=== PATIENT | female | born 1940 | race Caucasian/White ===

== ENCOUNTER 2017-04-23 23:00 | Inpatient (IN) | payer OTHER ==
[~2017-04-23] VITALS: Ht 152.4 cm; Wt 105.7 kg
[~2017-04-23 23:00] MED LIST: AZOR 5-40 MG T1 EACH PO; BYSTOLIC5 M1 PO; CHILDREN'S ASPI81 M1 PO; CRESTOR40 M2 PO; FERROUS SULFAT325 M3 PO; FISH OIL 1,2001 EAC2 PO; FUROSEMIDE40 M1 PO; FUROSEMIDE40 MG PO; FUROSEMIDE80 M1 PO; HYDRALAZINE HC100 M1 PO; HYDRALAZINE HCL50 MG PO; ISOSORBIDE MONO60 M1 PO; K-DUR 20MEQ TA20 MEQ PO; KEFLEX250 M1 PO; MULTIPLE VITAM1 EAC2 PO; POTASSIUM CHLO10 ME4 PO; SPIRONOLACTONE25 M1 PO; VERAPAMIL ER240 MG PO; VITAMIN D31000 UNI2 PO; VITAMIN E200 UNI4 PO
--- NOTE | 2017-04-23 23:03 | NUR ---
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 PT ALSO REPORTS LOWER BACK 10/10 xWEEK. PT DENIES HEAD STRIKE. PT CURRENTLY ON ASPIRIN 81MG. VSS.
--- NOTE | 2017-04-23 23:26 | NUR ---
DR REID AT BEDSIDE FOR EVAL.
--- NOTE | 2017-04-23 23:52 | NUR ---
SST, LAV, BLUE AND ACEVEDO TOP TUBES SENT TO LAB.
[2017-04-23 23:55] LABS: ABSOLUTE BASOPHIL COUNT 0 /CUMM (0.0-0.2); ABSOLUTE EOSINOPHIL COUNT 0.3 /CUMM (0.0-0.7); ABSOLUTE LYMPH COUNT 1.6 /CUMM (1.2-3.4); ABSOLUTE MONOCYTE COUNT 0.8 /CUMM (0.10-0.60); BASOPHIL % 0.2 % (0.0-2.0); GRANULOCYTE % 73.8 % (42.2-75.2); HEMATOCRIT 22.8 % (37-47); MEAN CORPUSCULAR HGB 28.2 PG (27.0-31.0); MEAN CORPUSCULAR HGB CONC 32.5 G/DL (33.0-37.0); MEAN CORPUSCULAR VOLUME 86.7 FL (81.0-99.0); MEAN PLATELET VOLUME 8.1 FL (7.4-10.4); PLATELET COUNT 311 /CUMM (130-400); RBC DISTRIBUTION WIDTH 15.1 % (11.5-14.5); RED BLOOD CELL CT 2.63 /CUMM (4.20-5.40); WHITE BLOOD CELL COUNT 10.9 /CUMM (4.8-10.8)
--- NOTE | 2017-04-24 | NUR ---
CRITICAL TEST RESULTS [id number] GREGOR ALAS 76 F TESTS AND RESULTS: HGB 7.4 HCT 22.8 Results received and read back by: DAYDAY CHANCE Results received date and time: 04/24/17 0001 The following provider was notified of the results, and read the results back: DR REID Notified date and time: 04/24/17 at 0001
--- NOTE | 2017-04-24 00:08 | NUR ---
PT MEDICATED WITH MORPHINE, VALIUM AND OFIRMEV PER EMAR FOR 10/10 R HIP AND BACK PAIN. WILL CONTINUE TO MONITOR. PT TAKEN FOR CAT SCAN AT THIS TIME.
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
--- NOTE | 2017-04-24 00:25 | NUR ---
PT RETURNED FROM CAT SCAN AT THIS TIME. LIGHTS DIMMED FOR COMFORT. WILL CONTINUE TO MONITOR.
--- NOTE | 2017-04-24 01:03 | NUR ---
PT MEDICATED WITH KLOR AND KCL BOLUS PER EMAR. DR REID AT BEDSIDE FOR SIGNING OF CONSENT. HEART MONITOR REMAINS IN PLACE.
--- NOTE | 2017-04-24 01:10 | CT SCAN REPORT ---
EXAMINATION: CT LUMBAR SPINE WITHOUT CONTRAST CLINICAL INFORMATION: History of fracture with worsening pain after fall COMPARISON: CT abdomen/pelvis 11/14/2013 TECHNIQUE: Helical non-contrast CT images were obtained through the lumbar spine and 1.25 and 2.5 mm axial reconstructions were reviewed along with sagittal and coronal MPRs. DLP: 1078.34 mGy-cm FINDINGS: There is grade 1 anterolisthesis of L4 on L5. There is slight loss of height in the posterior aspect of the T11 vertebral body which appears unchanged from prior. There is mild loss of height in the central to anterior aspect of the superior endplate of L1 which appears similar to prior, suggestive of a Schmorl's node. L2-L5 vertebral body heights are maintained. There is disc space narrowing at T12-L1, most prominent posteriorly. There is marked facet arthropathy of the mid to lower lumbar spine. No acute fracture is seen. There is degenerative change along the bilateral sacroiliac joints. There is aneurysmal dilation of the abdominal aorta to approximately 4.0 cm. There is atherosclerotic calcification along the aorta. IMPRESSION: Degenerative changes as described above, with marked facet arthropathy of the mid to lower lumbar spine. Mild loss of height in the superior endplate of L1 appears similar to prior. No new acute findings identified.
--- NOTE | 2017-04-24 01:37 | NUR ---
PINK TOP TUBE SENT TO LAB.
--- NOTE | 2017-04-24 02:58 | NUR ---
UNIT #1 OF LEUKOCYTE POOR INITIATED. PT TOLERATING WELL. WILL CONTINUE TO MONITOR.
--- NOTE | 2017-04-24 03:13 | NUR ---
LEUKOCYTE POOR CONTINUES TO INFUSE. PT TOLERATING WELL. WILL CONTINUE TO MONITOR.
--- NOTE | 2017-04-24 04:10 | NUR ---
PT CONTINUES TO REST ON STRETCHER. LEUKOCYTE POOR CONTINUES TO INFUSE. NO DISTRESS NOTED. HEART MONITOR REMAINS IN PLACE. WILL CONTINUE TO MONITOR.
--- NOTE | 2017-04-24 05:05 | NUR ---
PT NOTED TO BE SLEEPING ON STRETCHER. HEART MONITOR REMAINS IN PLACE. WILL CONTINUE TO MONITOR.
--- NOTE | 2017-04-24 05:47 | NUR ---
LEUKOCYTE POOR INFUSION COMPLETE. NO DISTRESS NOTED. DR REID AT BEDSIDE TO EXPLAIN POC.
--- NOTE | 2017-04-24 06:58 | NUR ---
PT RESTING QUIETLY ON STRETCHER. HEART MONITOR REMAINS IN PLACE. NO DISTRESS NOTED.
--- NOTE | 2017-04-24 07:16 | NUR ---
REPORT GIVEN TO FLORA SONG.
[2017-04-24] MEDS ORDERED: DOXAZOSIN MESYLA2 M1 PO (08:09)
--- NOTE | 2017-04-24 09:18 | NUR ---
PT. GIVEN TOAST, REQUESTING SOMETHING FOR PAIN
--- NOTE | 2017-04-24 09:52 | NUR ---
PT HAS BED ASSIGNMENT 237-1. RN NOTIFIED.
--- NOTE | 2017-04-24 10:14 | NUR ---
REPORT GIVEN TO FLORA SAMPSON
--- NOTE | 2017-04-24 10:28 | NUR ---
PT MEDICATED FOR 10/10 PAIN PER EMAR WIHT MORPHINE
--- NOTE | 2017-04-24 10:31 | History & Physical ---
CARMINA SILVA 04/24/17 0944: General Information and HPI MD Statement: I have seen and personally examined GREGOR ALAS and documented this H&P. The patient is a 76 year old F who presented with a patient stated chief complaint of [back pain]. Source of Information: patient Exam Limitations: no limitations History of Present Illness: Patient is a 76 y/o F with PMHx of uncontrolled HTN, HLD, T2DM, chronic anemia, CKD stage III, chronic venous insufficiency and 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 Patient states that she fractured her back about 26 years ago. Since then she has had chronic back pain and has been on pain medications. She often has had elevations of her pain secondary to wrong posture or sleep position. Yesterday she was unable to get off the toilet seat in the bathroom and lost her balance resulting in a fall on the floor. She suffered no injuries, no loss of consciousness, no dizziness, no chest pain, no palpitations, no seizure-like activity. Denies any nausea, vomiting, abdominal pain, urinary or bowel symptoms. After the fall she wasn't able to get up and therefore helself called 911 for help. At this time she reports intense back pain and inability to walk. She reports tenderness on the right lumbar region however denies any neurological deficits. However she reports constant pain and unable to change positions due to the discomfort. She lives by herself and normally does not use of walker or cane to ambulate.Her 2 sons live in [place] and daughter lives in [place]. Patient also has history of anemia and underwent a colonoscopy and endoscopy by Dr. Pérez on 01/29/2017. Multiple polyps were removed, which were negative for malignancy. Patient has been advised surveillance colonoscopy in 3 years. She was advised to stop NSAIDs and continue iron sulfate which the patient is currently taking. She denies evidence of any blood in stool or urine. No GI complaints at this time. Patient has history of heart failure with preserved ejection fraction. Her last echocardiogram was in 10/23/2016 and showed stage I diastolic dysfunction with EF of 65% with ventricular thickness moderately increased. 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 and 40 mg in p.m. In the ED vitals temperature 98.6, pulse 74, respiration 18, blood pressure 175/ 90, pulse ox 94% on room air. Labs showed a white count of 10.9, H&H of 7.4 /22.8(baseline hemoglobin around 9 ), MCV normal, sodium 143, potassium 3, BUN 67, creatinine 3.1(baseline around 1.9), magnesium 2.[address] showed degenerative changes, marked facet arthropathy of the mid to lower lumbar spine. Mild loss of height in the superior endplate of L1 which is old). Patient received IV morphine, IV Tylenol, 1 unit of PRBC, and potassium in the ED Allergies/Medications Allergies: Coded Allergies: NO KNOWN ALLERGIES (UNKNOWN 04/24/17) Home Med list Amlodipine Bes/Olmesartan Med (Reina 5-40 MG Tablet) 5 MG-40 MG TABLET 1 TAB PO DAILY HEART (Reported) Aspirin (Children's Aspirin) 81 MG TAB.CHEW 1 TAB PO DAILY HEART HEALTH ( Reported) Cholecalciferol (Vitamin D3) 1,000 UNIT TABLET 1 TAB PO DAILY VITAMIN SUPPORT (Reported) Doxazosin Mesylate 2 MG TABLET 0.5 TAB PO DAILY HEART (Reported) Ferrous Sulfate 325 MG (65 MG IRON) TABLET 1 TAB PO DAILY SUPPLEMENT ( Reported) Furosemide 80 MG TABLET 1 TAB PO QAM FLUID RETENTION Furosemide 40 MG TABLET 1 TAB PO QPM HIGH BLOOD PRESSURE Hydralazine HCl 100 MG TABLET 1 TAB PO TID HIGH BLOOD PRESSURE Isosorbide Mononitrate (Isosorbide Mononitrate ER) 60 MG TAB.ER.24H 1 TAB PO DAILY HIGH BLOOD PRESSURE Multivitamin (Multiple Vitamins) 1 EACH TABLET 1 TAB PO DAILY VITAMIN SUPPORT (Reported) Nebivolol HCl (Bystolic) 5 MG TABLET 1 TAB PO DAILY HEART (Reported) [place]-3S/Dha/Epa/Fish Oil (Fish Oil 1,200 MG Softgel) 360-1,200MG CAPSULE 1 CAP PO DAILY SUPPLEMENT (Reported) Potassium Chloride 10 MEQ TABLET.ER 1 TAB PO DAILY ELECTROLYTES Rosuvastatin Calcium (Crestor) 40 MG TABLET 1 TAB PO DAILY CHOLESTEROL ( Reported) Spironolactone 25 MG TABLET 0.5 TAB PO DAILY HIGH BLOOD PRESSURE Vitamin E 200 UNIT CAPSULE 1 CAP PO DAILY SUPPLEMENT (Reported) Past History Travel History Traveled to [place] past 21 day No Medical History Neurological: NONE EENT: NONE Cardiovascular: chronic venous insuff, diastolic CHF, hypertension, hyperlipidemia Respiratory: NONE Gastrointestinal: C.DIFF Hepatic: NONE Renal: chronic kidney disease Musculoskeletal: NONE Psychiatric: NONE Endocrine: NONE Blood Disorders: anemia Cancer(s): NONE History of MRSA: No History of VRE: No History of CDIFF: No Surgical History Surgical History: TONSILS Past Family/Social History Psychosocial History Services at Home: None Review of Systems Review of Systems Constitutional: Reports: malaise, weakness. EENTM: Reports: no symptoms. Cardiovascular: Reports: no symptoms. Respiratory: Reports: no symptoms. GI: Reports: no symptoms. Genitourinary: Reports: no symptoms. Musculoskeletal: Reports: back pain, muscle pain. Skin: Reports: no symptoms. Neurological/Psychological: Reports: no symptoms. Hematologic/Endocrine: Reports: no symptoms. Exam & Diagnostic Data Last 24 Hrs of Vital Signs/I&O Vital Signs Date Time Temp Pulse Resp B/P B/P Pulse O2 O2 Flow FiO2 Mean Ox Delivery Rate 04/24 0709 97.2 65 18 172/76 94 Room Air 04/24 0545 97.0 63 18 170/82 94 Room Air 04/24 0313 97.3 54 18 170/72 95 Room Air 04/24 0240 97.5 55 18 172/78 95 Room Air 04/24 0100 66 18 176/88 95 Room Air 04/23 2315 98.6 74 18 175/90 94 Room Air Intake & Output 04/24 1600 16 0800 04/24 0000 Intake Total 0 Output Total Balance 0 Intake, Oral 0 Patient 106.141 kg Weight Weight Reported by Patient Measurement Method Physical Exam General Appearance Alert, Oriented X3, Cooperative, Moderate Distress Skin No Rashes, No Breakdown Skin Temp/Moisture Exam: Warm/Dry Sepsis Skin Exam (color): Normal for Ethnicity HEENT Atraumatic, PERRLA, EOMI Neck No JVD Lymphatic Cervical nl Cardiovascular Regular Rate, Normal S1, Normal S2, No Murmurs Lungs Clear to Auscultation, Normal Air Movement Abdomen Normal Bowel Sounds, Soft, No Tenderness Neurological Normal Speech, Normal Tone, Sensation Intact, RIGHT PARASPINAL TENDERNESS, ROM of the back Extremities 2+ PITTING EDEMA TO THE KNEES BILATERALLY. STASIS DERMATITIS Vascular Pulses Symmetrical Assessment/Plan Assessment: Patient is a 76 y/o F with PMHx of uncontrolled HTN, HLD, T2DM, chronic anemia, CKD stage III, chronic venous insufficiency and HFwPEF(65 %, Stage 1 diastolic dysfunction) was brought to the ED by EMS for a fall and difficulty with ambulation. In the ED vitals temperature 98.6, pulse 74, respiration 18, blood pressure 175/ 90, pulse ox 94% on room air. Labs showed a white count of 10.9, H&H of 7.4 /22.8(baseline hemoglobin around 9 ), MCV normal, sodium 143, potassium 3, BUN 67, creatinine 3.1(baseline around 1.9), magnesium 2.[address] showed degenerative changes, marked facet arthropathy of the mid to lower lumbar spine. Mild loss of height in the superior endplate of L1 which is old). Patient has history of anemia and underwent a colonoscopy and endoscopy by Dr. Rodarte on 01/29/2017. Multiple polyps were removed, negative for malignancy. Patient has been advised surveillance colonoscopy in 3 years. Her last echocardiogram was in 10/23/2016 and showed stage I diastolic dysfunction with EF of 65% with ventricular thickness moderately increased. Patient received IV morphine, IV Tylenol, 1 unit of PRBC, and potassium in the ED Assessment * Unwitnessed Mechanical fall * Chronic back pain * Normocytic Anemia status post 1 unit of blood transfusion * History of heart failure with preserved ejection fraction * Hypertension * Bilateral lower extremity edema * PATO on CKD stage III * Hyperlipidemia * Type 2 diabetes mellitus Plan * Patient is being placed in observation * Vitals per protocol * Pain control with IV morphine and IV Tylenol as needed * Consider MRI of the back to r/o fracture, disc d/s * Stool guaiac * GI consult for anemia, holding ASA * Continue home medications for hypertension hydralazine, amlodipine and losartan, spironolactone and Bystolic. * Will get renal USG to r/o obstruction. * No fluids at this time, will continue duiretics. Stop diuretics if creatinine continues to rise. * Replete potassium * Recheck BeP and CBC at 1 PM * Continue home medication Lasix for chronic leg edema 80 mg in a.m. and 40 in p.m. * Consider nephro consult for PATO on CKD * Patient is ambulated with physical therapy. She needs further physical therapy and STR placement * Heart healthy diet * Full code * Moderate/severe pain pathway As Ranked By This Provider Problem List: 1. Fall at home Qualifiers Encounter type: initial encounter Qualified Codes: W19.XXXA - Unspecified fall, initial encounter; Y92.099 - Unspecified place in other non-institutional residence as the place of occurrence of the external cause 2. Leg swelling 3. Anemia Observation Initial Note - I have personally examined GREGOR ALAS on 04/24/17 at 1033. The disposition of GREGOR ALAS is uncertain at this time and before a determination can be made, she requires a period of observation for the following reasons : The patient has ambulated with assistance from PT. She is having significant pain and requiring IV Tylenol. She received IV fluids and blood in the ER Patient is being placed into inpatient observation for pain control, hydration and repeat creatinine and hemoglobin. Core Measures/Miscellaneous Acute Coronary Syndrome ACS Diagnosis: No Cerebrovascular Accident CVA/TIA Diagnosis: No Congestive Heart Failure CHF Diagnosis: No VTE (View Protocol) VTE Risk Factors: Age > 40, Obesity [facility] prophylaxis d/t: No contraindications No VTE Pharm Prophylaxis d/t: Active bleeding VTE Diagnosis: No VTE Type: NONE VTE Confirmed by (Test): NONE Sepsis (View Protocol) Severe Sepsis Present: No Septic Shock Septic Shock Present: No Miscellaneous Documentation Attending Case Discussed With: MAHAD CHEW MD Primary Care Physician: VIPUL COOK MD Patient sees these Specialists dr hernadez Level of Patient Care: General Medicine MAHAD CHEW MD 04/25/17 0753: Attending Review Statement Attending Statement Attending Statement: examined this patient, discuss w/resident/PA/PRINTER SLOTTER HELPER, agreed w/resident/PA/PRINTER SLOTTER HELPER, reviewed EMR data (avail), reviewed images, amended to note Attending Assessment/Plan: The patient is a 76 yo female with h/o HTN, HL, DM2, chronic anemia, h/o diastolic dysfunction (stage I on ECHO) who presented in the ED yesterday after mechanical fall at home and subsequent severe back pain (unable to ambulate). X- ray showed older lumbar fracture, however no new fracture. She has had some chronic back pain. She also has chronic anemia and hemoglobin was further reduced and transfusion of PRBC's was given in ED. Has CKD with increased Cr above baseline (3.1 vs 2.6). Has been taking her diuretics and has had diminished po intake. Denies any fever, chills, chest pain, abdominal pain, nausea/vomiting. Physical Exam: VS: T 98.6, P 74, R 18, BP 175/90, PO 95% RA HEENT: eyes- PERRLA, EOMI arley-dry mucosa Neck: no JVD/bruits Chest: clear Cor: RRR, nl S1, S2 w/o murm Abd: Bs+, soft, NT, - HSM Back: no focal tenderness or spasm Ext: no edema, pulses 1+ Neuro: alert & oriented x 3, non-focal exam Labs/Tests- as above Impression/Plan: #Intractable Back Pain and Gait Instability- after mechanical fall at home. No acute fracture noted on lumbar X-ray (h/o old L1 fx). Received IV narcotic in ED. Plan: Will bring in under observation status to general medical floor. Pain pathway. PT consult. Will need rehab placement. Will obtain MRI of lumbar spine to better assess for any acute fractures. #Acute on Chronic Renal Failure- followed by Nephrology (already seen by Selin Olsen). Patient appears clinically dry. Plan: Will hold Lasix and spironolactone today and re-assess in morning pending BEP and Nephro follow-up. No IV fluids per Nephrology. #Acute on Chronic Anemia- did have recent (03/25) colonoscopy and polypectomies. No history of blood per rectum. Suspect large component due to renal failure. Plan: Check stools for blood, GI consult (Dr. Souza) done. Follow-up H/H post transfusion. Consider epogen pending nephrology follow-up. Continue iron supplement. #HTN- BP stable at present. Plan: Continue Bystolic (or equivalent), Hydralazine, Amlodipine/Olmesartan (or equivalent). Restart Lasix/Spironolactone pending follow-up labs. #CAD- on Isosorbide/ASA. Plan: Continue Isosorbide/ASA. #Hyperlipidemia- on Crestor as OP. Plan: Continue Statin.
--- NOTE | 2017-04-24 11:00 | NUR ---
PT ARRIVED TO FLOOR VIA WC. ABLE TO STAND AND PIVOT TO BED WITH MINIMAL ASSISTANCE. PER PT, MOVING BETTER SINCE RECEIVING MORPHINE IN ER. RATES PAIN 8/10 WITH MOVEMENT BUT STATES IS SUBSIDES WITH REST. ASSISTED TO BED. SKIN INTACT. EDEMA NOTED TO BLE, L>R. VITALS OBTAINED. BP 212/100. PER PT, TAKES MANY BP MEDS AND HAS NOT RECEIVED ANY. CALL PLACED TO RESIDENT DR. SILVA. TO ORDER ALL HOME BP MEDICATIONS. PT MEDICATED WITH IV TYLENOL FOR PAIN 8/10. ORIENTED TO CALL SYSTEM. FALL PRECAUTIONS IN PLACE. WILL MONITOR.
[2017-04-24 11:15] VITALS: BP 212/100
--- NOTE | 2017-04-24 12:00 | NUR ---
BP RE-CHECKED PRIOR TO PO MED ADMINISTRATION. BP REMAINS ELEVATED AT 202/92. REPORTED AGAIN TO DR. MARKS. PO MEDS REVIEWED WITH PT, ORDERS CLARIFIED AND REPORTED TO MD. DUNN TO MAKE CHANGES IN SYSTEM. WILL MONITOR.
--- NOTE | 2017-04-24 12:49 | Cons- Nephrology ---
General Information and HPI Consulting Request Date of Consult: 04/24/17 Requested By: MAHAD CHEW MD Reason for Consult: Management of PATO/CKD History of Present Illness: The patient is a 76-year-old woman with known chronic kidney disease secondary to hypertension and diabetes mellitus without high-grade proteinuria. Her baseline serum creatinine has recently been in the mid 2's. She is now admitted because of a fall at home which she attributes to chronic back problems. She was not on the floor for more than 10 or 15 minutes and was observed overnight in the emergency department. Her serum creatinine was noted to be elevated above baseline at a level of 3.1 prompting this consultation request. There have just far been no repeat labs today. She denies any recent decrease in p.o. intake and does not take NSAIDs. There's been no recent exposure to other potential nephrotoxins (other than her diuretics), as far as I can ascertain. CT scan of the lumbar spine showed degenerative changes with no apparent acute process. Past medical history is positive for hypertension, type 2 diabetes mellitus, hyperlipidemia, CK D stage III as noted above, chronic anemia status post EGD/ colonoscopy in January with multiple benign polypectomies, chronic venous insufficiency, stage I diastolic dysfunction with an LVEF of 65%, pulmonary hypertension, MGUS (IgM). Medications: See below Allergies: No known drug allergies Family history: Neither parents, 2 brothers or 4 children have any history of kidney disease; there is a family history for hypertension. Social history: , lives alone, no history of alcohol abuse, cigarette smoking or drug abuse. Allergies/Medications Allergies: Coded Allergies: NO KNOWN ALLERGIES (UNKNOWN 04/24/17) Home Med List: Amlodipine Bes/Olmesartan Med (Reina 5-40 MG Tablet) 5 MG-40 MG TABLET 1 TAB PO DAILY HEART (Reported) Aspirin (Children's Aspirin) 81 MG TAB.CHEW 1 TAB PO DAILY HEART HEALTH ( Reported) Cholecalciferol (Vitamin D3) 1,000 UNIT TABLET 1 TAB PO DAILY VITAMIN SUPPORT (Reported) Doxazosin Mesylate 2 MG TABLET 0.5 TAB PO DAILY HEART (Reported) Ferrous Sulfate 325 MG (65 MG IRON) TABLET 1 TAB PO DAILY SUPPLEMENT ( Reported) Furosemide 80 MG TABLET 1 TAB PO QAM FLUID RETENTION Furosemide 40 MG TABLET 1 TAB PO QPM HIGH BLOOD PRESSURE Hydralazine HCl 100 MG TABLET 1 TAB PO TID HIGH BLOOD PRESSURE Isosorbide Mononitrate (Isosorbide Mononitrate ER) 60 MG TAB.ER.24H 1 TAB PO DAILY HIGH BLOOD PRESSURE Multivitamin (Multiple Vitamins) 1 EACH TABLET 1 TAB PO DAILY VITAMIN SUPPORT (Reported) Nebivolol HCl (Bystolic) 5 MG TABLET 1 TAB PO DAILY HEART (Reported) [place]-3S/Dha/Epa/Fish Oil (Fish Oil 1,200 MG Softgel) 360-1,200MG CAPSULE 1 CAP PO DAILY SUPPLEMENT (Reported) Potassium Chloride 10 MEQ TABLET.ER 1 TAB PO DAILY ELECTROLYTES Rosuvastatin Calcium (Crestor) 40 MG TABLET 1 TAB PO DAILY CHOLESTEROL ( Reported) Spironolactone 25 MG TABLET 0.5 TAB PO DAILY HIGH BLOOD PRESSURE Vitamin E 200 UNIT CAPSULE 1 CAP PO DAILY SUPPLEMENT (Reported) Review of Systems Review of Systems: Review of Systems Constitutional: Reports: malaise, weakness. EENTM: Reports: no symptoms. Cardiovascular: Reports: no symptoms. Respiratory: Reports: no symptoms. GI: Reports: no symptoms. Genitourinary: Reports: no symptoms with stable nocturia 2. Musculoskeletal: Reports: back pain, muscle pain. Skin: Reports: no symptoms. Neurological/Psychological: Reports: no symptoms. Hematologic/Endocrine: Reports: no symptoms. 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 Surgical History Surgical History: TONSILS Psychosocial History Services at Home: None Smoking Status: Never Smoked Exam & Diagnostic Data Vital Signs and I&O Vital Signs Date Time Temp Pulse Resp B/P B/P Pulse O2 O2 Flow FiO2 Mean Ox Delivery Rate 04/24 1220 04/24 1220 04/24 1220 04/24 1220 04/24 1115 97.6 74 16 212/100 94 Room Air 04/24 1025 98.0 62 14 171/76 95 04/24 0709 97.2 65 18 172/76 94 Room Air 04/24 0545 97.0 63 18 170/82 94 Room Air 04/24 0313 97.3 54 18 170/72 95 Room Air 04/24 0240 97.5 55 18 172/78 95 Room Air 04/24 0100 66 18 176/88 95 Room Air 04/23 2315 98.6 74 18 175/90 94 Room Air Intake & Output 04/24 0400 04/23 0400 04/22 0400 Intake Total 0 Output Total Balance 0 Intake, Oral 0 Patient 234 lb 234 lb Weight Weight Reported by Patient Measurement Method Physical Exam: General: Well-developed, obese white female in NAD Skin: No rash or jaundice HEENT: Conjunctivae pale, sclerae anicteric, mucous membranes moist Neck: Without masses or thyromegaly, no supraclavicular or cervical adenopathy Chest: Clear to P&A Heart: Regular rate and rhythm without S3 or rub Abdomen: Obese, soft and nontender without palpable masses or organomegaly Extremities: Trace to 1+ edema more pronounced on the left Neuro: No focal findings, no asterixis or myoclonus Results Pertinent Lab Results: Laboratory Tests 04/23 2347 Chemistry Sodium (137 - 145 mmol/L) 143 Potassium (3.5 - 5.1 mmol/L) 3.0 L Chloride (98 - 107 mmol/L) 102 Carbon Dioxide (22 - 30 mmol/L) 25 Anion Gap (5 - 16) 16 BUN (7 - 17 mg/dL) 67 H Creatinine (0.5 - 1.0 mg/dL) 3.1 H Estimated GFR (>60 ml/min) 15 L BUN/Creatinine Ratio (7 - 25 %) 21.6 Glucose (65 - 99 mg/dL) 98 Calcium (8.4 - 10.2 mg/dL) 8.9 Magnesium (1.6 - 2.3 mg/dL) 2.4 H Total Bilirubin (0.2 - 1.3 mg/dL) 0.4 AST (14 - 36 U/L) 17 ALT (9 - 52 U/L) 27 Alkaline Phosphatase (<127 U/L) 61 Total Protein (6.3 - 8.2 g/dL) 6.5 Albumin (3.5 - 5.0 g/dL) 3.6 Globulin (1.9 - 4.2 gm/dL) 2.9 Albumin/Globulin Ratio (1.1 - 2.2 %) 1.2 Hematology CBC w Diff NO MAN DIFF REQ WBC (4.8 - 10.8 /CUMM) 10.9 H RBC (4.20 - 5.40 /CUMM) 2.63 L Hgb (12.0 - 16.0 G/DL) 7.4 *L Hct (37 - 47 %) 22.8 L MCV (81.0 - 99.0 FL) 86.7 MCH (27.0 - 31.0 PG) 28.2 RDW (11.5 - 14.5 %) 15.1 H Plt Count (130 - 400 /CUMM) 311 MPV (7.4 - 10.4 FL) 8.1 Gran % (42.2 - 75.2 %) 73.8 Lymphocytes % (20.5 - 51.1 %) 15.2 L Monocytes % (1.7 - 9.3 %) 7.8 Eosinophils % (0 - 5 %) 3.0 Basophils % (0.0 - 2.0 %) 0.2 Absolute Granulocytes (1.4 - 6.5 /CUMM) 8.0 H Absolute Lymphocytes (1.2 - 3.4 /CUMM) 1.6 Absolute Monocytes (0.10 - 0.60 /CUMM) 0.8 H Absolute Eosinophils (0.0 - 0.7 /CUMM) 0.3 Absolute Basophils (0.0 - 0.2 /CUMM) 0 PUBS MCHC (33.0 - 37.0 G/DL) 32.5 L Assessment/Plan Assessment/Recommendations Assessment: 76-year-old woman with a background that includes chronic kidney disease stage III secondary to hypertension and diabetes mellitus without high-grade proteinuria, hyperlipidemia, chronic lower extremity edema possibly related to venous insufficiency, pulmonary hypertension, colonic polyps, anemia, chronic back pain and an MGUS. She now comes in following a fall at home with no acute findings on lumbar CT scan but with a creatinine that is elevated above her baseline. In addition she is significantly hypertensive, hypokalemic and anemic. I suspect there is an element of volume contraction likely secondary to her diuretic therapy. Obstruction needs to be considered and ruled out. Recommendations: 1. Renal ultrasound 2. Please recheck her chemistries today and supplement potassium as needed; would also check a serum phosphorus level 3. If creatinine is not coming down toward baseline, would hold her diuretics for 1-2 days and reassess; no IV fluids for the moment unless her creatinine is actually rising 4. Resume her outpatient antihypertensive regimen which may need to be intensified 5. Anemia evaluation to include a serum immunoelectrophoresis and serum free light chains Thank you. We will follow up.
[2017-04-24 14:00] VITALS: BP 134/64
--- NOTE | 2017-04-24 15:04 | Cons- Gastroenterology ---
General Information and HPI Consulting Request Date of Consult: 04/24/17 Requested By: MHAAD PHILIP MD Reason for Consult: I was notified approximately 11 a.m. today of a request by the hospitalist service for a GI consult to assess multifactorial anemia, in a patient admitted post fall, with acute on chronic renal insufficiency (no stool guaiac had been performed; I subsequently did a digital exam that showed OB-negative stool). The patient has had a relatively recent EGD/colonoscopy by myself (*see HPI). Source of Information: patient, old records Exam Limitations: no limitations History of Present Illness: 76 y/o female, poorly controlled HTN, HLD, AODM, gout, DJD, chronic anemia ( previously transfused in 2012), MGUS IgM, chronic venous insufficiency, CKD stage III with significant proteinuria, stage 1 diastolic dysfunction, history of Lyme disease with + Western blot 04/01/11, history of falls, history of colon adenoma, past history of heavy NSAID use (stopped Aleve in 01/2017- switched to Tylenol; on baby ASA 81 mg daily), past history of multiple bouts of C. difficIle (last 03/28/13), with remote fracture of lower back 1991 & chronic low back syptoms intermittently since, BIBA to ER. arriving 04/23/17 at 11:00 p.m., after a mechanical fall. The patient went to the bathroom at home late last evening and slipped off the toilet bowl. She was then sitting on the floor. She denied any head trauma, chest pain, palpitations, loss of consciousness, seizures, or LOC. She called 911 and was brought to the ER, as she subsequently had difficulty ambulating. Upon arrival, BP 175/90, P 74, RR 18, T 98.6, O2 sat RA 94%. Aside from her right paralumbar/lower lumbar back pain, she otherwise had no new complaints. The ER sheets stated right hip pain, but the patient denied this. Her anemia was not symptomatic. She had no signs or symptoms of uremia. She lives by herself and previously did not need a walker or cane to ambulate. She denied any urinary or fecal incontinence. She denied any abdominal trauma, nausea, vomiting, reflux, odynophagia, dysphagia, early satiety, hematemesis, melena, diarrhea, constipation, obstipation, tenesmus, change in stool caliber, or rectal bleeding. She denied any fevers, chills, jaundice, weight loss, change in appetite, symptoms of UTI, or symptoms or URI. There is no family history of GI malignancy, GI disease, or inherited liver disease. *She has received 1u PRBC to date, this admission, in the ER, along with IV MS, IV Tylenol, Valium, & K+. 07/22/2003: normal fasting serum carotene 53, tTG Ab- neg, DGP IgA Ab- neg, DGP IgG Ab- 54 (positive), with subsequent SB biopsies- negative for celiac sprue. 07/27/2003: Baseline upper endoscopy to D3 with biopsies & baseline colonoscopy to the cecum- Z line at 40 cm, random biopsies D2/D3- *normal villi; moderate left-sided diverticula, normal colonic mucosa to the cecum. 11/23/2003: SPEP- elevated [id number], IPEP- negative 04/07/2014: SPEP- c/w acute phase reactant, with alpha 2 globulin 09/29/2016: Fe 39, TIBC 267, Fe sat 14.6%, ferritin 7.9, B12 812, folate > 20. 04/23/2017: The patient was found to have acute on chronic renal insufficiency on admission, with BUN/Cr 67/3.1 (baseline Cr 1.9), GFR 15 (baseline GFR 20's), Na 143, K 3.0, HCO3 25, AG 16, Mg 2.4, Ca 8.9, albumin 3.6, globulin 2.9, TBil 0.4, alk phos 61, AST 17, ALT 27, WBC 10.9, H/H 7.4/22.8 (baseline Hgb 8-9 range ), MCV 86.7, RDW 15.1, PLT 311 04/24/2017: WBC 10.2, H/H 8.1/24.6, PLT 281 (*post 1u PRBC) 04/24/2017: BUN/Cr 59/3.0, GFR 15, Na 141, K 3.5, HCO3 26, AG 13 04/24/2017: U/A- hazy, yellow, 1.015, 6.0, 1-3 WBC, many bact, mod epith, 100+ prot; neg nitrite, neg esterase. *I recently performed repeat EGD/colonoscopy a couple of months ago. 01/29/17: *Combined follow-up upper endoscopy to the third portion of the duodenum with biopsies, plus follow-up colonoscopy to the terminal ileum, with biopsies/hot snare polypectomies (*done at different sites), and prophylactic clipping 1, for chronic iron deficiency anemia at that time, with OB positive stool then. She had been on Aleve then, which was subsequently stopped. Impression: 1. Repeat random small bowel biopsy 4 of normal-appearing second and third portions of the duodenum obtained: (Specimen A- rule out malabsorption and/or celiac sprue; iron deficiency with remote 07/22/03: AG Ab IgG+, normal carotene, tTG Ab IgA- negative & AG Ab IgA- negative, & 07/27/03: bxs D2/D3- normal villi). *Duodenal biopsies- unremarkable. 2. Lipomatous fold, second portion of duodenum, biopsied: (Specimen B). *Bxs c/ w lipoma. 3. Mild antral inflammation (scant dried heme washed essentially clear), biopsied: Specimen C). *Bxs- mild gastritis, H. pylori negative. 4. Extensive left-sided diverticula. 5. Multiple polyps seen and removed upon exiting the colon: (Specimen A- 1 cm sessile cecal polyp near the base of the appendix, positive by NBI, biopsied then completely removed via hot snare polypectomy, using 25 W/pure coag, retrieved via suction, and prophylactically clipped with a [employer] Reesolution 360 clip, which deployed in excellent location. *Benign TA. Specimen B- 3 mm sessile transverse colon polyp at 80 cm, positive by NBI, completely removed via cold biopsy. *Benign TA. Specimen C- 4 mm sessile left colon polyp at 50 cm, positive by NBI, completely removed via cold biopsy. * Unremarkable tissue. Specimen D-cluster of 3 adjacent sessile rectal polyps at 7 cm [1 cm, 6 mm & 4 mm], negative by NBI, completely removed via hot snare polypectomy, using 25 W/pure coag, and retrieved via suction). *Benign TAs. I previously contacted the oatient 01/30/17 & informed her of the benign bxs/ polyps. I advised a follow-up surveillance colonoscopy in 3 years (i.e.- 2019), with TriLyte (CRF). *The patient was told to stop NSAIDs, including Aleve (*especially with CRF). She was told to carefully continue baby aspirin 81 mg daily, with ASHD. *Start FeSO4 325 mg po TID. *Start OTC Prilosec 20 mg po Q a.m., 1/2 hour before breakfast. *Advise follow-up with renal, to consider checking EPO level. *Consideration for outpatient PillCam (the risks & benefits of this were discussed with the patient, including the small chance of the PillCam getting stuck, which would necessitate retrieval, as it contains a battery). *The patient was told to call the office for the PillCam, if desired ( *she never did). *There was no admission EKG on the chart. 04/23/2017: CT LUMBAR SPINE WITHOUT CONTRAST- Degenerative changes as described above, with marked facet arthropathy of the mid to lower lumbar spine. Mild loss of height in the superior endplate of L1 appears similar to prior. No new acute findings identified. 04/24/2017: US RETROPERITONEAL COMPLETE (RENAL)- 1. Chronically atrophied, echogenic kidneys -- suggestive of chronic medical renal disease. 2. No evidence of nephrolithiasis or obstructive uropathy. 3. Benign cysts of the left kidney. 04/24/2017: MR LUMBAR SPINE WITHOUT CONTRAST- 1. Mild, chronic anterior wedging deformity of L1. No acute fracture. 2. Lumbar spondylosis and mild levoconvex lumbar scoliosis. At L4-L5 there is grade 1 degenerative anterolisthesis with multifactorial mild narrowing of the subarticular recesses, contacting the traversing L5 nerve roots, and left greater than right foraminal stenosis coming in close proximity to the exiting L4 nerve roots. 3. Aneurysmal dilatation of the abdominal aorta, partially visualized. Allergies/Medications Allergies: Coded Allergies: NO KNOWN ALLERGIES (UNKNOWN 04/24/17) Home Med List: Amlodipine Bes/Olmesartan Med (Reina 5-40 MG Tablet) 5 MG-40 MG TABLET 1 TAB PO DAILY HEART (Reported) Aspirin (Children's Aspirin) 81 MG TAB.CHEW 1 TAB PO DAILY HEART HEALTH ( Reported) Cholecalciferol (Vitamin D3) 1,000 UNIT TABLET 1 TAB PO DAILY VITAMIN SUPPORT (Reported) Doxazosin Mesylate 2 MG TABLET 0.5 TAB PO DAILY HEART (Reported) Ferrous Sulfate 325 MG (65 MG IRON) TABLET 1 TAB PO DAILY SUPPLEMENT ( Reported) Furosemide 80 MG TABLET 1 TAB PO QAM FLUID RETENTION Furosemide 40 MG TABLET 1 TAB PO QPM HIGH BLOOD PRESSURE Hydralazine HCl 100 MG TABLET 1 TAB PO TID HIGH BLOOD PRESSURE Isosorbide Mononitrate (Isosorbide Mononitrate ER) 60 MG TAB.ER.24H 1 TAB PO DAILY HIGH BLOOD PRESSURE Multivitamin (Multiple Vitamins) 1 EACH TABLET 1 TAB PO DAILY VITAMIN SUPPORT (Reported) Nebivolol HCl (Bystolic) 5 MG TABLET 1 TAB PO DAILY HEART (Reported) [place]-3S/Dha/Epa/Fish Oil (Fish Oil 1,200 MG Softgel) 360-1,200MG CAPSULE 1 CAP PO DAILY SUPPLEMENT (Reported) Potassium Chloride 10 MEQ TABLET.ER 1 TAB PO DAILY ELECTROLYTES Rosuvastatin Calcium (Crestor) 40 MG TABLET 1 TAB PO DAILY CHOLESTEROL ( Reported) Spironolactone 25 MG TABLET 0.5 TAB PO DAILY HIGH BLOOD PRESSURE Vitamin E 200 UNIT CAPSULE 1 CAP PO DAILY SUPPLEMENT (Reported) Current Medications: Current Medications Sig/Duong Start time Last Medication Dose Route Stop Time Status Admin Acetaminophen 1,000 MG Q6P PRN 04/24 1045 AC N/A 1 UNIT IV Acetaminophen 1,000 MG ONCE ONE 04/24 0945 DC IV 04/24 0946 Acetaminophen 325 MG Q6P PRN 04/24 0930 AC PO Acetaminophen 975 MG ONCE ONE 04/24 0915 CAN PO 04/24 0916 Acetaminophen 0 .STK-MED ONE 04/24 0008 DC IV Acetaminophen 1,000 MG ONCE ONE 04/23 2345 DC 04/24 IV 04/23 2346 0007 Amlodipine Besylate 5 MG DAILY 04/24 1142 AC 04/24 PO 1220 Atorvastatin Calcium 40 MG 1700 04/24 1700 AC 04/24 PO 1607 Diazepam 0 .STK-MED ONE 04/24 0003 DC .ROUTE Diazepam 2.5 MG ONCE ONE 04/23 2345 DC 04/24 IV 04/23 2346 0007 Doxazosin Mesylate 1 MG DAILY 04/25 1000 DC PO Doxazosin Mesylate 1 MG DAILY 04/24 1245 AC 04/24 PO 1356 Ferrous Sulfate 325 MG DAILY 04/24 1143 AC 04/24 PO 1219 Furosemide 40 MG QPM 04/24 2200 CAN PO Furosemide 80 MG DAILY 04/24 1143 DC 04/24 PO 1219 Hydralazine HCl 100 MG TID 04/24 1600 AC 04/24 PO 1608 Hydralazine HCl 100 MG DAILY 04/24 1144 DC 04/24 PO 1220 Isosorbide 60 MG DAILY 04/24 1144 AC 04/24 Mononitrate PO 1220 Losartan Potassium 50 MG DAILY 04/24 1237 AC 04/24 PO 1356 Morphine Sulfate 0 .STK-MED ONE 04/24 1026 DC .ROUTE Morphine Sulfate 1 MG Q4P PRN 04/24 0930 AC 04/24 IV 1027 Morphine Sulfate 0 .STK-MED ONE 04/24 0004 DC .ROUTE Morphine Sulfate 2 MG ONCE ONE 04/23 2345 DC 04/24 IV 04/23 2346 0007 Nebivolol 5 MG DAILY 04/24 1144 AC 04/24 PO 1220 Omeprazole 40 MG DAILY AC 04/24 1228 AC 04/24 PO 1356 Oxycodone HCl 5 MG Q6P PRN 04/24 0930 AC PO Potassium Chloride 10 MEQ DAILY 04/24 1144 AC 04/24 PO 1219 Potassium Chloride 0 .STK-MED ONE 04/24 0059 DC PO Potassium Chloride 10 MEQ Q1H 04/24 0045 DC 04/24 IV 04/24 0146 0220 Potassium Chloride 40 MEQ ONCE ONE 04/24 0045 DC 04/24 PO 04/24 0046 0102 Sodium Chloride 1,000 ML Q20H 04/24 1215 DC 04/24 IV 04/25 0814 1221 Spironolactone 12.5 MG DAILY 04/24 1145 AC 04/24 PO 1219 Past History Travel History Traveled to [place] past 21 day No Medical History Blood Transfusion Hx: Yes Neurological: NONE EENT: NONE Cardiovascular: chronic venous insuff, diastolic CHF, hypertension, hyperlipidemia Respiratory: NONE Gastrointestinal: C.DIFF- mult bouts, last 03/28/13, diverticulosis coli, hx colon adenomas Hepatic: NONE Renal: chronic kidney disease Musculoskeletal: chronic back pain (L1 comp fx- chronic), degen joint disease, falls, fracture (ribs), osteoarthritis Psychiatric: NONE Endocrine: NONE Blood Disorders: NONE (hx transfx), anemia Cancer(s): NONE 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 , Age 44; Cause: HTN (hypertension). FATHER, , Age 68; Cause: ASHD (arteriosclerotic heart disease). Psychosocial History Where Do You Live? Home Who Do You Live With? self Services at Home: None Primary Language: Japanese Smoking Status: Never Smoked ETOH Use: denies use Illicit Drug Use: denies illicit drug use Living Will? no Power of Animal Care Supervisor/HCP? no Other Social History: since 2001. Lives alone. No cigarettes, alcohol, or illicit drugs. Laid off from [employer] in 1997. 3 sons (all in [place]) & 1 dtr (in [place])- all [employer]. Functional Ability ADLs Independent: dressing, eating, toileting, bathing. 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 Employment History Employment: Unemployed Profession/Employer: Laid off from [employer] 1997 ECHO Results (as available) Date of last Echo 10/23/16 EF% 65 Review of Systems Review of Systems: Full 14 point ROS otherwise noncontributory & as above. Review of Systems Constitutional: Denies: chills, diaphoresis, fever, malaise, weakness, unexplained weight loss. EENTM: Denies: blurred vision, double vision, visual changes, eye pain, eye drainage, eye tearing, icterus, ear discharge, ear pain, ear redness, hearing changes, nasal congestion, epistaxis, nasal pain, throat pain, throat swelling, mouth pain, tooth pain. Cardiovascular: Reports: peripheral edema. Denies: chest pain, edema, orthopena, palpitations, syncope. Respiratory: Denies: cough, hemoptysis, orthopnea, short of breath, sputum production, stridor, wheezing. GI: Denies: abdominal pain, bloating, constipation, diarrhea, distention, bowel incontinence, melena, nausea, bloody stool, changes in stool, vomiting, steatorrhea. Genitourinary: Denies: discharge, dysuria, frequency, hematuria, hesitation, nocturia, pain, urgency. Musculoskeletal: Reports: back pain (comp fx L1), gout, joint pain (DJD). Denies: joint swelling , muscle pain, muscle stiffness, neck pain. Skin: Denies: cysts, change in skin color, change in hair/nails, dryness, erythema, jaundice, lesions, lymphangitis, lumps, moles, rash. Neurological/Psychological: Denies: anxiety, ataxia, cognitive dysfunction, confusion, depressed, dementia, emotional problems, headache, numbness, paresthesia, pre-existing deficit, petit mal seizures, tingling, tremors, tonic-clonic seizures, unable to move lower ext , unable to move upper ext, weakness. Hematologic/Endocrine: Denies: bruising, bleeding, polyuria, polydipsia. Immunologic/Allergic: Denies: splenectomy, HIV/AIDS, lymphadenopathy. All Other Systems: Reviewed and Negative Exam & Diagnostic Data Vital Signs and I&O Vital Signs Date Time Temp Pulse Resp B/P B/P Pulse O2 O2 Flow FiO2 Mean Ox Delivery Rate 04/24 1608 62 140/72 04/24 1454 Room Air 04/24 1400 134/64 04/24 1356 134/64 04/24 1220 202/92 04/24 1220 202/92 04/24 1220 202/92 04/24 1220 202/92 04/24 1115 97.6 74 16 212/100 94 Room Air 04/24 1025 98.0 62 14 171/76 95 04/24 0709 97.2 65 18 172/76 94 Room Air 04/24 0545 97.0 63 18 170/82 94 Room Air 04/24 0313 97.3 54 18 170/72 95 Room Air 04/24 0240 97.5 55 18 172/78 95 Room Air 04/24 0100 66 18 176/88 95 Room Air 04/23 2315 98.6 74 18 175/90 94 Room Air Intake & Output 04/24 1600 04/24 0400 04/23 1600 04/23 0400 04/22 1600 04/22 0400 Intake Total 390 0 Output Total 150 Balance 240 0 Intake, IV 150 Intake, Oral 240 0 Output, Urine 150 Patient 234 lb 234 lb Weight Weight Reported by Patient Measurement Method Physical Exam: Well-developed, well-nourished, pleasant, obese, elderly female, in mild distress, due to lower back L1 compresion fracture. Sclera anicteric. Conjunctiva less pale (post transfx). Oropharynx clear. Dry mucus membranes. No oral thrush. No aphthous ulcers. There is no adenopathy, thyromegaly, or JVD. No peripheral stigmata of inflammatory bowel disease or chronic liver disease on exam. No spiders on the anterior chest wall. Breast & pelvic exams: API. No CVA tenderness. Lungs: clear to A&P. Heart exam: regular rate rhythm, S1 and S2, with I/ systolic murmur. Abdominal exam: slightly hyperactive bowel sounds, soft belly,obese, nontender, without guarding or rebound. No mass. No organomegaly. No fluid shift. No pulsatile mass. No epogastric bruit. Digital rectal exam: *done by myself 04/24/17: light brown stool, OB-negative, no mass, normal sphincter tone, no external hemorrhoids, no fissure, nontender. Extremities: without cyanosis or clubbing. 1+ pedal edema B/L. + DJD. No palpable cords. Hips N/T. + lower right paralumbar tenderness, with mild lower lumbar spine point tenderness. No palmar erythema. No Dupuytren's contractures. Distal pulses 1+ bilaterally. DTRs 1+ bilaterally. Alert and oriented x 3. Right handed. CN II-XII intact. No tremor. No asterixis. A detailed exam for peripheral neuropathy was deferred. Gait not assessed. Results Pertinent Lab Results: Laboratory Tests 04/24 04/24 1600 1412 Chemistry Sodium (137 - 145 mmol/L) 141 Potassium (3.5 - 5.1 mmol/L) 3.5 Chloride (98 - 107 mmol/L) 103 Carbon Dioxide (22 - 30 mmol/L) 26 Anion Gap (5 - 16) 13 BUN (7 - 17 mg/dL) 59 H Creatinine (0.5 - 1.0 mg/dL) 3.0 H Estimated GFR (>60 ml/min) 15 L BUN/Creatinine Ratio (7 - 25 %) 19.7 Hematology CBC w Diff NO MAN DIFF REQ WBC (4.8 - 10.8 /CUMM) 10.2 RBC (4.20 - 5.40 /CUMM) 2.78 L Hgb (12.0 - 16.0 G/DL) 8.1 L Hct (37 - 47 %) 24.6 L MCV (81.0 - 99.0 FL) 88.5 MCH (27.0 - 31.0 PG) 29.1 RDW (11.5 - 14.5 %) 15.3 H Plt Count (130 - 400 /CUMM) 281 MPV (7.4 - 10.4 FL) 8.5 Gran % (42.2 - 75.2 %) 76.1 H Lymphocytes % (20.5 - 51.1 %) 13.6 L Monocytes % (1.7 - 9.3 %) 6.4 Eosinophils % (0 - 5 %) 3.4 Basophils % (0.0 - 2.0 %) 0.5 Absolute Granulocytes (1.4 - 6.5 /CUMM) 7.8 H Absolute Lymphocytes (1.2 - 3.4 /CUMM) 1.4 Absolute Monocytes (0.10 - 0.60 /CUMM) 0.7 H Absolute Eosinophils (0.0 - 0.7 /CUMM) 0.3 Absolute Basophils (0.0 - 0.2 /CUMM) 0 PUBS MCHC (33.0 - 37.0 G/DL) 32.9 L Urines Urine Color (YEL,AMB,STR) YEL Urine Clarity (CLEAR) HAZY H Urine pH (5.0 - 8.0) 6.0 Ur Specific [place] (1.001 - 1.035) 1.015 Urine Protein (NEG,<30 MG/DL) 100 H Urine Ketones (NEG) NEG Urine Nitrite (NEG) NEG Urine Bilirubin (NEG) NEG Urine Urobilinogen (0.1 - 1.0 EU/dl) 0.2 Ur Leukocyte Esterase (NEG) NEG Ur Microscopic SEDIMENT EXAMINED Urine WBC (0 - 2 /HPF) 1-3 H Ur Epithelial Cells (NONE,FEW) MOD H Urine Bacteria (NEG/NONE) MANY H Urine Hemoglobin (NEG) NEG Urine Glucose (N MG/DL) NEG 04/23 2347 Chemistry Sodium (137 - 145 mmol/L) 143 Potassium (3.5 - 5.1 mmol/L) 3.0 L Chloride (98 - 107 mmol/L) 102 Carbon Dioxide (22 - 30 mmol/L) 25 Anion Gap (5 - 16) 16 BUN (7 - 17 mg/dL) 67 H Creatinine (0.5 - 1.0 mg/dL) 3.1 H Estimated GFR (>60 ml/min) 15 L BUN/Creatinine Ratio (7 - 25 %) 21.6 Glucose (65 - 99 mg/dL) 98 Calcium (8.4 - 10.2 mg/dL) 8.9 Magnesium (1.6 - 2.3 mg/dL) 2.4 H Total Bilirubin (0.2 - 1.3 mg/dL) 0.4 AST (14 - 36 U/L) 17 ALT (9 - 52 U/L) 27 Alkaline Phosphatase (<127 U/L) 61 Total Protein (6.3 - 8.2 g/dL) 6.5 Albumin (3.5 - 5.0 g/dL) 3.6 Globulin (1.9 - 4.2 gm/dL) 2.9 Albumin/Globulin Ratio (1.1 - 2.2 %) 1.2 Hematology CBC w Diff NO MAN DIFF REQ WBC (4.8 - 10.8 /CUMM) 10.9 H RBC (4.20 - 5.40 /CUMM) 2.63 L Hgb (12.0 - 16.0 G/DL) 7.4 *L Hct (37 - 47 %) 22.8 L MCV (81.0 - 99.0 FL) 86.7 MCH (27.0 - 31.0 PG) 28.2 RDW (11.5 - 14.5 %) 15.1 H Plt Count (130 - 400 /CUMM) 311 MPV (7.4 - 10.4 FL) 8.1 Gran % (42.2 - 75.2 %) 73.8 Lymphocytes % (20.5 - 51.1 %) 15.2 L Monocytes % (1.7 - 9.3 %) 7.8 Eosinophils % (0 - 5 %) 3.0 Basophils % (0.0 - 2.0 %) 0.2 Absolute Granulocytes (1.4 - 6.5 /CUMM) 8.0 H Absolute Lymphocytes (1.2 - 3.4 /CUMM) 1.6 Absolute Monocytes (0.10 - 0.60 /CUMM) 0.8 H Absolute Eosinophils (0.0 - 0.7 /CUMM) 0.3 Absolute Basophils (0.0 - 0.2 /CUMM) 0 PUBS MCHC (33.0 - 37.0 G/DL) 32.5 L Imaging/Other Studies: *There was no admission EKG on the chart. 04/23/2017: CT LUMBAR SPINE WITHOUT CONTRAST- Degenerative changes as described above, with marked facet arthropathy of the mid to lower lumbar spine. Mild loss of height in the superior endplate of L1 appears similar to prior. No new acute findings identified. 04/24/2017: US RETROPERITONEAL COMPLETE (RENAL)- 1. Chronically atrophied, echogenic kidneys -- suggestive of chronic medical renal disease. 2. No evidence of nephrolithiasis or obstructive uropathy. 3. Benign cysts of the left kidney. 04/24/2017: MR LUMBAR SPINE WITHOUT CONTRAST- 1. Mild, chronic anterior wedging deformity of L1. No acute fracture. 2. Lumbar spondylosis and mild levoconvex lumbar scoliosis. At L4-L5 there is grade 1 degenerative anterolisthesis with multifactorial mild narrowing of the subarticular recesses, contacting the traversing L5 nerve roots, and left greater than right foraminal stenosis coming in close proximity to the exiting L4 nerve roots. 3. Aneurysmal dilatation of the abdominal aorta, partially visualized. Assessment/Plan Assessment/Recommendations: 76 y/o female, poorly controlled HTN, HLD, AODM, gout, DJD, chronic anemia ( previously transfused in 2012), MGUS IgM, chronic venous insufficiency, CKD stage III with significant proteinuria, stage 1 diastolic dysfunction, history of Lyme disease with + Western blot 04/01/11, history of falls, history of colon adenoma, past history of heavy NSAID use (stopped Aleve in 01/2017- switched to Tylenol; on baby ASA 81 mg daily), past history of multiple bouts of C. difficIle (last 03/28/13), with remote fracture of lower back 1991 & chronic low back syptoms intermittently since, BIBA to ER. arriving 04/23/17 at 11:00 p.m., after a mechanical fall. The patient went to the bathroom at home late last evening and slipped off the toilet bowl. She was then sitting on the floor. She denied any head trauma, chest pain, palpitations, loss of consciousness, seizures, or LOC. She called 911 and was brought to the ER, as she subsequently had difficulty ambulating. Upon arrival, BP 175/90, P 74, RR 18, T 98.6, O2 sat RA 94%. Aside from her right paralumbar/lower lumbar back pain, she otherwise had no new complaints. The ER sheets stated right hip pain, but the patient denied this. Her anemia was not symptomatic. She had no signs or symptoms of uremia. She lives by herself and previously did not need a walker or cane to ambulate. She denied any urinary or fecal incontinence. She denied any abdominal trauma, nausea, vomiting, reflux, odynophagia, dysphagia, early satiety, hematemesis, melena, diarrhea, constipation, obstipation, tenesmus, change in stool caliber, or rectal bleeding. She denied any fevers, chills, jaundice, weight loss, change in appetite, symptoms of UTI, or symptoms or URI. There is no family history of GI malignancy, GI disease, or inherited liver disease. *She has received 1u PRBC to date, this admission, in the ER, along with IV MS, IV Tylenol, Valium, & K+. 07/22/2003: normal fasting serum carotene 53, tTG Ab- neg, DGP IgA Ab- neg, DGP IgG Ab- 54 (positive), with subsequent SB biopsies- negative for celiac sprue. 07/27/2003: Baseline upper endoscopy to D3 with biopsies & baseline colonoscopy to the cecum- Z line at 40 cm, random biopsies D2/D3- *normal villi; moderate left-sided diverticula, normal colonic mucosa to the cecum. 11/23/2003: SPEP- elevated [id number], IPEP- negative 04/07/2014: SPEP- c/w acute phase reactant, with alpha 2 globulin 09/29/2016: Fe 39, TIBC 267, Fe sat 14.6%, ferritin 7.9, B12 812, folate > 20. 04/23/2017: The patient was found to have acute on chronic renal insufficiency on admission, with BUN/Cr 67/3.1 (baseline Cr 1.9), GFR 15 (baseline GFR 20's), Na 143, K 3.0, HCO3 25, AG 16, Mg 2.4, Ca 8.9, albumin 3.6, globulin 2.9, TBil 0.4, alk phos 61, AST 17, ALT 27, WBC 10.9, H/H 7.4/22.8 (baseline Hgb 8-9 range ), MCV 86.7, RDW 15.1, PLT 311 04/24/2017: WBC 10.2, H/H 8.1/24.6, PLT 281 (*post 1u PRBC) 04/24/2017: BUN/Cr 59/3.0, GFR 15, Na 141, K 3.5, HCO3 26, AG 13 04/24/2017: U/A- hazy, yellow, 1.015, 6.0, 1-3 WBC, many bact, mod epith, 100+ prot; neg nitrite, neg esterase. *I recently performed repeat EGD/colonoscopy a couple of months ago. 01/29/17: *Combined follow-up upper endoscopy to the third portion of the duodenum with biopsies, plus follow-up colonoscopy to the terminal ileum, with biopsies/hot snare polypectomies (*done at different sites), and prophylactic clipping 1, for chronic iron deficiency anemia at that time, with OB positive stool then. She had been on Aleve then, which was subsequently stopped. Impression: 1. Repeat random small bowel biopsy 4 of normal-appearing second and third portions of the duodenum obtained: (Specimen A- rule out malabsorption and/or celiac sprue; iron deficiency with remote 07/22/03: AG Ab IgG+, normal carotene, tTG Ab IgA- negative & AG Ab IgA- negative, & 07/27/03: bxs D2/D3- normal villi). *Duodenal biopsies- unremarkable. 2. Lipomatous fold, second portion of duodenum, biopsied: (Specimen B). *Bxs c/ w lipoma. 3. Mild antral inflammation (scant dried heme washed essentially clear), biopsied: Specimen C). *Bxs- mild gastritis, H. pylori negative. 4. Extensive left-sided diverticula. 5. Multiple polyps seen and removed upon exiting the colon: (Specimen A- 1 cm sessile cecal polyp near the base of the appendix, positive by NBI, biopsied then completely removed via hot snare polypectomy, using 25 W/pure coag, retrieved via suction, and prophylactically clipped with a [employer] Reesolution 360 clip, which deployed in excellent location. *Benign TA. Specimen B- 3 mm sessile transverse colon polyp at 80 cm, positive by NBI, completely removed via cold biopsy. *Benign TA. Specimen C- 4 mm sessile left colon polyp at 50 cm, positive by NBI, completely removed via cold biopsy. * Unremarkable tissue. Specimen D-cluster of 3 adjacent sessile rectal polyps at 7 cm [1 cm, 6 mm & 4 mm], negative by NBI, completely removed via hot snare polypectomy, using 25 W/pure coag, and retrieved via suction). *Benign TAs. I previously contacted the oatient 01/30/17 & informed her of the benign bxs/ polyps. I advised a follow-up surveillance colonoscopy in 3 years (i.e.- 2019), with [facility] (CRF). *The patient was told to stop NSAIDs, including Aleve (*especially with CRF). She was told to carefully continue baby aspirin 81 mg daily, with ASHD. *Start FeSO4 325 mg po TID. *Start OTC Prilosec 20 mg po Q a.m., 1/2 hour before breakfast. *Advise follow-up with renal, to consider checking EPO level. *Consideration for outpatient PillCam (the risks & benefits of this were discussed with the patient, including the small chance of the PillCam getting stuck, which would necessitate retrieval, as it contains a battery). *The patient was told to call the office for the PillCam, if desired ( *she never did). *There was no admission EKG on the chart. 04/23/2017: CT LUMBAR SPINE WITHOUT CONTRAST- Degenerative changes as described above, with marked facet arthropathy of the mid to lower lumbar spine. Mild loss of height in the superior endplate of L1 appears similar to prior. No new acute findings identified. 04/24/2017: US RETROPERITONEAL COMPLETE (RENAL)- 1. Chronically atrophied, echogenic kidneys -- suggestive of chronic medical renal disease. 2. No evidence of nephrolithiasis or obstructive uropathy. 3. Benign cysts of the left kidney. 04/24/2017: MR LUMBAR SPINE WITHOUT CONTRAST- 1. Mild, chronic anterior wedging deformity of L1. No acute fracture. 2. Lumbar spondylosis and mild levoconvex lumbar scoliosis. At L4-L5 there is grade 1 degenerative anterolisthesis with multifactorial mild narrowing of the subarticular recesses, contacting the traversing L5 nerve roots, and left greater than right foraminal stenosis coming in close proximity to the exiting L4 nerve roots. 3. Aneurysmal dilatation of the abdominal aorta, partially visualized. *I feel that the patient's anemia is multifactorial, from a combination of CKD, MGUS, and perhaps to a much smaller extent, subtle GI oozing. She had been on chronic Aleve until the end of 01/2017. She previously was iron deficient, not currently. Her stools are guaiac- negative at the moment, and there is no evidence of active GI bleeding. She was not compliant with a suggested outpatient PillCam. The normal TBil goes against hemolysis. Although there is a history of falls, abdominal sono did not show any evidence of a retroperitoneal hematoma. The patient was actually admitted purely for low back pain, after a fall, & was subsequently found to have worsening of her GFR & Hgb. Previous malabsorption workup and small bowel biopsies- unremarkable. GI ROS from above & below are completely negative. The history of colon adenomas & diverticulosis coli are noted. SUGGEST: Add Fe, TIBC, ferritin, B12, RBC folate, MMA, EPO, SPEP & IPEP to pre- transfusion labs, if possible. Check UPEP (proteinuria, anemia, etc). Will defer to renal regarding addition of Procrit. Check CBC daily for now. Keep Hgb > 8 if history of ASHD. Check PT/PTT. O2 prn. Consideration for outpatient PillCam, as patient allows (discussed with her again in detail today). May continue PPI & Fe. Obviously, no NSAIDs. May carefully continue baby ASA 81 mg daily, if needed. Treatment of old compression fracture L1, HTN, & numerous other issues as per medical team. Fluid management & f/u of GFR/lytes, as per renal. May feed patient as tolerated. By dates, the patient is due for follow-up colonoscopy in 3 years (i.e.- 01/2020), [facility]), for adenoma surveillance, depending on the overall risk:benefit ratio at that time. *Further inpatient GI follow-up as needed. The above was discussed in detail with the patient & with Dr. Philip. Problem List: 1. Anemia 2. History of adenomatous polyp of colon 3. Diverticulosis of colon 4. Chronic renal failure Copies To: HAO DUNN,MAHAD Garcias; MAHAD PHILIP MD; IKE DUNN,HADLEY Cortez; ENEDELIA DUNN,DEEDEE; JOYCE DUNN,VIPUL Garcias Consult Acknowledgment - Thank you for your consult request.
--- NOTE | 2017-04-24 15:41 | ULTRASOUND REPORT ---
EXAMINATION: US RETROPERITONEAL COMPLETE (RENAL) CLINICAL INFORMATION: Acute renal injury with elevated creatinine.. COMPARISON: CT images of abdomen, 11/14/2013 TECHNIQUE: Real-time imaging of the kidneys and bladder. FINDINGS: RIGHT KIDNEY: 9.7 x 4.7 x 4 cm (SAG x AP x TRV). Chronic, moderate cortical atrophy. Renal cortex is hyperechoic, consistent with medical renal disease. No focal parenchymal lesion, nephrolithiasis or hydronephrosis. LEFT KIDNEY: The chronically atrophied left kidney is suboptimally visualized. It measures approximately 7.6 x 3.8 x 3.7 cm (SAG x AP x TRV). The cortex is echogenic. There are two adjacent cysts in the lower pole, one measuring 3.5 x 3.7 x 3.5 cm and the other measuring 4.5 x 4.2 x 3.2 cm. No hydronephrosis or nephrolithiasis. BLADDER: Urinary bladder is distended to an estimated volume of 113 mL and has normal wall thickness . Ureteral jets were not observed during the time of imaging. IMPRESSION: 1. Chronically atrophied, echogenic kidneys -- suggestive of chronic medical renal disease. 2. No evidence of nephrolithiasis or obstructive uropathy. 3. Benign cysts of the left kidney.
--- NOTE | 2017-04-24 16:07 | MRI REPORT ---
EXAMINATION: MR LUMBAR SPINE WITHOUT CONTRAST CLINICAL INFORMATION: History of fracture with worsening pain after fall COMPARISON: CT of the lumbar spine from 04/24/2017. CT of the abdomen and pelvis from 11/14/2013 and 04/03/2013 TECHNIQUE: MRI of the lumbar spine without contrast was obtained using routine sequences. FINDINGS: VERTEBRAL BODIES AND PARASPINAL STRUCTURES: There are 5 nonrib-bearing lumbar type vertebral bodies. There is a stable mild compression deformity involving the superior endplate of L1 without marrow edema compatible with a chronic appearance. Otherwise lumbar vertebral body height is maintained. There is a mild butterfly type configuration of the T11 vertebral body, which is stable over multiple prior studies, and likely on a congenital/developmental basis. There is grade 1 degenerative anterolisthesis of L4 on L5 without evidence of spondylolyses. This measures approximately 4 mm. Sagittal alignment is otherwise fairly well-maintained. There is an oval T1 and T2 bright structure in the left side of L1 compatible with a region of focal fat or hemangioma. There is mild asymmetric edema in the right-sided paraspinal musculature, nonspecific. There is mild disc desiccation and height loss at T11-T12 and T12-L1. The lumbar discs are fairly normal in height with minor desiccation most notable at L3-L4. There is a mild levoconvex scoliosis. The aorta is ectatic with aneurysmal dilatation. This is only partially imaged on the current study, and has been better evaluated on prior imaging. No evidence of retroperitoneal adenopathy. There is some cortical volume loss involving both kidneys. There are scattered T2 bright structures within the kidneys, statistically cysts. There are degenerative changes of the partially imaged SI joints. There is sclerosis about both SI joints, with low signal visualized on the axial T1-weighted images, which appears quite similar to the prior CT studies. CONUS MEDULLARIS AND CAUDA EQUINA: The conus terminates normally at the inferior endplate of L1. There is normal signal within the conus medullaris, cauda equina, and along the expected course of the filum terminale. SPINAL LEVELS: T12-L1: There is some artifact at this level. There appears to be a shallow disc protrusion mildly flattening the ventral thecal sac. Mild facet hypertrophy. Both foramina are mildly narrowed. L1-L2: Normal disc morphology. No canal or foraminal stenosis. Facet hypertrophy. L2-L3: There is minor disc bulge. Facet hypertrophy with a right facet effusion. Minor flattening of the ventral thecal sac. The foramina are mildly narrowed. L3-L4: There is mild disc bulge mildly flattening the ventral thecal sac. Facet hypertrophy with facet effusions and thickening of ligamentum flavum. The foramina are mildly narrowed. L4-L5: There is grade 1 degenerative anterolisthesis with uncovering of the disc and mild disc bulge. Marked bilateral facet hypertrophy with facet effusions and thickening of the ligamentum flavum. There is mild trefoil type canal stenosis contacting the traversing L5 nerve roots. Mild right and mild to moderate left foraminal stenosis. Facet osteophytes coming close proximity to the exiting L4 nerve roots. L5-S1: Fairly normal disc morphology. Facet hypertrophy worse on the right. The canal is well-maintained. The right foramen is mildly narrowed and the left foramen is well-maintained. IMPRESSION: 1. Mild, chronic anterior wedging deformity of L1. No acute fracture. 2. Lumbar spondylosis and mild levoconvex lumbar scoliosis. At L4-L5 there is grade 1 degenerative anterolisthesis with multifactorial mild narrowing of the subarticular recesses, contacting the traversing L5 nerve roots, and left greater than right foraminal stenosis coming in close proximity to the exiting L4 nerve roots. 3. Aneurysmal dilatation of the abdominal aorta, partially visualized.
[2017-04-24 16:38] LABS: ABSOLUTE BASOPHIL COUNT 0 /CUMM (0.0-0.2); ABSOLUTE EOSINOPHIL COUNT 0.3 /CUMM (0.0-0.7); ABSOLUTE GRANULOCYTE CT 7.8 /CUMM (1.4-6.5); ABSOLUTE LYMPH COUNT 1.4 /CUMM (1.2-3.4); ABSOLUTE MONOCYTE COUNT 0.7 /CUMM (0.10-0.60); BASOPHIL % 0.5 % (0.0-2.0); EOSINOPHIL % 3.4 % (0-5); GRANULOCYTE % 76.1 % (42.2-75.2); HEMATOCRIT 24.6 % (37-47); MEAN CORPUSCULAR HGB 29.1 PG (27.0-31.0); MEAN CORPUSCULAR HGB CONC 32.9 G/DL (33.0-37.0); MEAN CORPUSCULAR VOLUME 88.5 FL (81.0-99.0); MEAN PLATELET VOLUME 8.5 FL (7.4-10.4); PLATELET COUNT 281 /CUMM (130-400); RBC DISTRIBUTION WIDTH 15.3 % (11.5-14.5); RED BLOOD CELL CT 2.78 /CUMM (4.20-5.40); WHITE BLOOD CELL COUNT 10.2 /CUMM (4.8-10.8)
[2017-04-24 22:50] VITALS: BP 134/61
[2017-04-25 07:25] VITALS: BP 144/68
[2017-04-25 08:05] LABS: ABSOLUTE BASOPHIL COUNT 0 /CUMM (0.0-0.2); ABSOLUTE EOSINOPHIL COUNT 0.4 /CUMM (0.0-0.7); ABSOLUTE GRANULOCYTE CT 9.6 /CUMM (1.4-6.5); ABSOLUTE LYMPH COUNT 0.9 /CUMM (1.2-3.4); ABSOLUTE MONOCYTE COUNT 0.6 /CUMM (0.10-0.60); BASOPHIL % 0.3 % (0.0-2.0); EOSINOPHIL % 3.6 % (0-5); GRANULOCYTE % 83.2 % (42.2-75.2); HEMATOCRIT 24.6 % (37-47); MEAN CORPUSCULAR HGB 29.1 PG (27.0-31.0); MEAN CORPUSCULAR HGB CONC 33.1 G/DL (33.0-37.0); MEAN CORPUSCULAR VOLUME 88.1 FL (81.0-99.0); PLATELET COUNT 273 /CUMM (130-400); RBC DISTRIBUTION WIDTH 15.4 % (11.5-14.5); WHITE BLOOD CELL COUNT 11.5 /CUMM (4.8-10.8)
--- NOTE | 2017-04-25 11:00 | PN- Att Addend ---
Attending Addendum Attending Brief Note Patient seen and examined. She still has severe lower back pain. She is upset that the idea of going to rehabilitation and feels very much that when her routine is changed she does worse. She says she has very good upper body strength but she gets this severe low back pain and spasms. On exam her pressure is better at 140/68, pulse is 76, breathing at 16-18, afebrile Lungs have decreased breath sounds bilaterally, heart is S1-S2 regular, abdomen is obese nontender and she has bilateral 1+ pedal edema. Labs reviewed H&H is stable at 8 and 24 and BUN and creatinine is 54-2.7. She is a 76-year-old female with multiple medical problems including diabetes, hypertension, monoclonal gammopathy, chronic anemia and chronic CKD with a baseline BUN and creatinine of 2-2.3. She is here status post a fall with severe lower back pain and the MRI revealed chronic wedging of the L1 with spondylolisthesis and some foraminal stenosis but no acute fracture. She is in observation status and we are observing her need for IV narcotics for pain and ongoing PT. At this point I've encouraged her to use the oral oxycodone and I've increase the dose of the oral Tylenol with the hope that she' ll need less IV morphine. We'll continue to watch her in observation status with aggressive PT with the hope that she will be able to go home. We are holding the diuretics per renal's recommendations given the PATO on CKD and will follow that closely. If her kidney function comes back to baseline, she requires less IV narcotics and PT clears her I may be able to send her home.
--- NOTE | 2017-04-25 11:20 | PN- Housestaff ---
See Addendum Subjective Follow-up For: Intractable back pain Complaints: Back pain Subjective: Ms Hernandez complains of intractable back pain that is constant 9/10 intensity and worse with movement. She denies numbness or weakness of the limbs. She is not considering short term rehab at this time, but admits it will be difficult for her to function at home with this level of pain. Review of Systems Constitutional: Denies: chills, fever, malaise, weakness. Cardiovascular: Denies: chest pain, palpitations, syncope. Respiratory: Denies: cough, short of breath, sputum production, wheezing. Gastrointestinal: Denies: abdominal pain, constipation, diarrhea, nausea. Genitourinary: Denies: dysuria, hematuria. Musculoskeletal: Denies: back pain. Neurological/Psychological: Denies: headache, numbness, tingling. Objective Last 24 Hrs of Vital Signs/I&O Vital Signs Date Time Temp Pulse Resp B/P B/P Pulse O2 O2 Flow FiO2 Mean Ox Delivery Rate 04/25 1750 76 150/60 04/25 1535 99.0 76 18 150/60 93 Room Air 04/25 1047 74 144/68 04/25 1046 98.5 74 144/68 04/25 1046 74 144/68 04/25 1046 74 144/68 04/25 0725 98.5 74 18 144/68 97 Room Air 04/24 2250 98.0 65 20 134/61 95 Room Air 04/24 2113 66 132/72 Intake & Output 04/25 1600 04/25 0800 04/25 0000 Intake Total 120 230 Output Total 600 Balance -480 230 Intake, IV 130 Intake, Oral 120 100 Output, Urine 600 Physical Exam General Appearance: Alert, Oriented X3, Cooperative, No Acute Distress Skin: No Rashes Skin Temp/Moisture Exam: Warm/Dry Sepsis Skin Exam (color): Normal for Ethnicity HEENT: Atraumatic, EOMI, Mucous Membr. moist/pink Neck: Supple, No JVD Lymphatic: Cervical nl Cardiovascular: Regular Rate, Normal S1, Normal S2, No Murmurs Lungs: Clear to Auscultation, Normal Air Movement Abdomen: Normal Bowel Sounds, Soft, No Tenderness, No Hepatospenomegaly Neurological: Normal Speech, Normal Tone Extremities: No Edema, Normal Pulses, No Tenderness/Swelling Vascular: Normal Pulses, Pulses Symmetrical Current Medications: Current Medications Sig/Duong Start time Last Medication Dose Route Stop Time Status Admin Acetaminophen 975 MG Q8P PRN 04/25 1100 AC PO Acetaminophen 1,000 MG Q6P PRN 04/24 1045 AC 04/24 N/A 1 UNIT IV 1820 Acetaminophen 325 MG Q6P PRN 04/24 0930 DC PO Amlodipine Besylate 5 MG DAILY 04/24 1142 AC 04/25 PO 1047 Atorvastatin Calcium 40 MG 1700 04/24 1700 AC 04/25 PO 1750 Doxazosin Mesylate 1 MG DAILY 04/24 1245 AC 04/25 PO 1046 Ferrous Sulfate 325 MG DAILY 04/24 1143 AC 04/25 PO 1047 Hydralazine HCl 100 MG TID 04/24 1600 AC 04/25 PO 1750 Isosorbide 60 MG DAILY 04/24 1144 AC 04/25 Mononitrate PO 1046 Lidocaine 1 PAT DAILY 04/25 1030 AC 04/25 EXT 1402 Losartan Potassium 50 MG DAILY 04/24 1237 AC 04/25 PO 1046 Morphine Sulfate 1 MG Q4P PRN 04/24 0930 AC 04/25 IV 1043 Nebivolol 5 MG DAILY 04/24 1144 AC 04/25 PO 1047 Omeprazole 40 MG DAILY AC 04/24 1228 AC 04/25 PO 0507 Oxycodone HCl 5 MG Q6P PRN 04/24 0930 AC 04/25 PO 1750 Potassium Chloride 10 MEQ DAILY 04/24 1144 AC 04/25 PO 1047 Spironolactone 12.5 MG DAILY 04/24 1145 AC 04/25 PO 1043 Last 24 Hrs of Lab/Ray Results Last 24 Hrs of Labs/Mics: Laboratory Tests 04/25/17 0630: Anion Gap 13, Estimated GFR 17 L, BUN/Creatinine Ratio 20.0, Phosphorus 4.8 H, CBC w Diff NO MAN DIFF REQ, RBC 2.80 L, MCV 88.1, MCH 29.1, RDW 15.4 H, MPV 9.0, Gran % 83.2 H, Lymphocytes % 7.9 L, Monocytes % 5.0, Eosinophils % 3.6, Basophils % 0.3, Absolute Granulocytes 9.6 H, Absolute Lymphocytes 0.9 L, Absolute Monocytes 0.6, Absolute Eosinophils 0.4, Absolute Basophils 0, PUBS MCHC 33.1 04/25/17 0600: Ref Lab Test Result Pending Assessment/Plan Assessment: Patient is a 76 y/o F with PMHx of uncontrolled HTN, HLD, T2DM, chronic anemia, CKD stage III, chronic venous insufficiency and 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 She is being managed for intractable back pain. 1. Intractable Back Pain and Gait Instability after mechanical fall at home. * No acute fracture noted on lumbar X-ray (h/o old L1 fx) * CT and MRI of lumbar spine show no acute fractures, but showed degenerative changes, spondylosis and foraminal canal narrowing * PT recommend rehab placement * Add lidocaine patch to back * Continue IV tylenol and PO Oxycodone for pain * Will try to reduce need for IV morphine if possible 2. Acute on Chronic Renal Failure * Nephrology following * Patient appears clinically dry * Continue to hold Lasix * Contiunue spironolactone today * Re-assess in morning with BEP * Nephro follow-up. No IV fluids per Nephrology * Given patient's history of MGUS, and now in renal failure, will send serum free light chains (quantification) as requested by nephrology 3. Acute on Chronic Anemia * Patient did have recent (03/25) colonoscopy and polypectomies * No history of blood per rectum. Suspect large component due to renal failure. * GI consult (Dr. Souza) appreciated. * Iron panel shows low serum iron and low TIBC. No ferritin ordered * Post transfusion hb is stable today * Continue iron supplement. 4.HTN- BP stable at present. Plan: Continue Bystolic (or equivalent), Hydralazine, Amlodipine/Olmesartan (or equivalent). Continue spironolacton 5. CAD- on Isosorbide/ASA. * Continue Isosorbide/ASA. 6. Hyperlipidemia * Continue Statin. Problem List: 1. Low back pain at multiple sites 2. Acute on chronic renal insufficiency 3. Anemia 4. HTN (hypertension) 5. CAD (coronary artery disease) Pain Ratin Pain Location: Low back Pain Goal: Pain 4 or less Pain Plan: Lidoderm patch IV tylenol PO oxycodone IV Morphine Tomorrow's Labs & Rationales: CBC and BEP for anemia and acute kidney injury monitoring DVT/Prophylaxis: mechanical
--- NOTE | 2017-04-25 11:25 | PN- Nephrology ---
Assessment/Plan Assessment: 1. PATO- likely some level of volume depletion 2. CKD- hypertensive nephrosclerosis 3. Back Pain- light chains requested 4. DM 5. MGUS Suggestion: 1. await Light chains 2. continue to hold diuretics for now Subjective Subjective: Still wth back pain Objective Vital Signs and I&Os Vital Signs Date Time Temp Pulse Resp B/P B/P Pulse O2 O2 Flow FiO2 Mean Ox Delivery Rate 04/25 1047 74 144/68 04/25 1046 98.5 74 144/68 04/25 1046 74 144/68 04/25 1046 74 144/68 04/25 0725 98.5 74 18 144/68 97 Room Air 04/24 2250 98.0 65 20 134/61 95 Room Air 04/24 2113 66 132/72 04/24 1608 62 140/72 04/24 1454 Room Air 04/24 1400 134/64 04/24 1356 134/64 04/24 1220 202/92 04/24 1220 202/92 04/24 1220 202/92 04/24 1220 20292 Intake & Output 04/25 1600 04/25 0400 04/24 1600 04/24 0400 04/23 1600 04/23 0400 Intake Total 120 230 390 0 Output Total 600 150 Balance -480 230 240 0 Intake, IV 130 150 Intake, Oral 120 100 240 0 Output, Urine 600 150 Patient 234 lb 234 lb Weight Weight Reported by Patient Measurement Method Physical Exam General Appearance: well developed/nourished, no apparent distress, alert, awake , comfortable, obese Head: atraumatic, normal appearance Neck: normal inspection, supple Respiratory: normal breath sounds Cardiovascular: regular rate/rhythm Peripheral Pulses: 2+ tibialis posterior (R), 2+ tibialis posterior (L), 2+ dorsalis pedis (R), 2+ dorsalis pedis (L) Abdomen: normal bowel sounds, soft, non-tender, no organomegaly, obese protuberent Neurologic/Psychiatric: no motor/sensory deficits, awake, alert Skin: intact, normal color Lymphatic: adenopathy Current Medications: Current Medications Sig/Duong Start time Last Medication Dose Route Stop Time Status Admin Acetaminophen 975 MG Q8P PRN 04/25 1100 AC PO Acetaminophen 1,000 MG Q6P PRN 04/24 1045 AC 04/24 N/A 1 UNIT IV 1820 Acetaminophen 325 MG Q6P PRN 04/24 0930 DC PO Amlodipine Besylate 5 MG DAILY 04/24 1142 AC 04/25 PO 1047 Atorvastatin Calcium 40 MG 1700 04/24 1700 AC 04/24 PO 1607 Doxazosin Mesylate 1 MG DAILY 04/25 1000 DC PO Doxazosin Mesylate 1 MG DAILY 04/24 1245 AC 04/25 PO 1046 Ferrous Sulfate 325 MG DAILY 04/24 1143 AC 04/25 PO 1047 Furosemide 40 MG QPM 04/24 2200 CAN PO Furosemide 80 MG DAILY 04/24 1143 DC 04/24 PO 1219 Hydralazine HCl 100 MG TID 04/24 1600 AC 04/25 PO 1046 Hydralazine HCl 100 MG DAILY 04/24 1144 DC 04/24 PO 1220 Isosorbide 60 MG DAILY 04/24 1144 AC 04/25 Mononitrate PO 1046 Lidocaine 1 PAT DAILY 04/25 1030 AC EXT Losartan Potassium 50 MG DAILY 04/24 1237 AC 04/25 PO 1046 Morphine Sulfate 1 MG Q4P PRN 04/24 0930 AC 04/25 IV 1043 Nebivolol 5 MG DAILY 04/24 1144 AC 04/25 PO 1047 Omeprazole 40 MG DAILY AC 04/24 1228 AC 04/25 PO 0507 Oxycodone HCl 5 MG Q6P PRN 04/24 0930 AC PO Potassium Chloride 10 MEQ DAILY 04/24 1144 AC 04/25 PO 1047 Sodium Chloride 1,000 ML Q20H 04/24 1215 DC 04/24 IV 04/25 0814 1221 Spironolactone 12.5 MG DAILY 04/24 1145 AC 04/25 PO 1043 Results Pertinent Lab Results: Laboratory Tests 04/25 04/24 0630 1600 Chemistry Sodium (137 - 145 mmol/L) 142 141 Potassium (3.5 - 5.1 mmol/L) 3.5 3.5 Chloride (98 - 107 mmol/L) 104 103 Carbon Dioxide (22 - 30 mmol/L) 25 26 Anion Gap (5 - 16) 13 13 BUN (7 - 17 mg/dL) 54 H 59 H Creatinine (0.5 - 1.0 mg/dL) 2.7 H 3.0 H Estimated GFR (>60 ml/min) 17 L 15 L BUN/Creatinine Ratio (7 - 25 %) 20.0 19.7 Phosphorus (2.5 - 4.5 mg/dL) 4.8 H Hematology CBC w Diff NO MAN DIFF REQ NO MAN DIFF REQ WBC (4.8 - 10.8 /CUMM) 11.5 H 10.2 RBC (4.20 - 5.40 /CUMM) 2.80 L 2.78 L Hgb (12.0 - 16.0 G/DL) 8.1 L 8.1 L Hct (37 - 47 %) 24.6 L 24.6 L MCV (81.0 - 99.0 FL) 88.1 88.5 MCH (27.0 - 31.0 PG) 29.1 29.1 RDW (11.5 - 14.5 %) 15.4 H 15.3 H Plt Count (130 - 400 /CUMM) 273 281 MPV (7.4 - 10.4 FL) 9.0 8.5 Gran % (42.2 - 75.2 %) 83.2 H 76.1 H Lymphocytes % (20.5 - 51.1 %) 7.9 L 13.6 L Monocytes % (1.7 - 9.3 %) 5.0 6.4 Eosinophils % (0 - 5 %) 3.6 3.4 Basophils % (0.0 - 2.0 %) 0.3 0.5 Absolute Granulocytes (1.4 - 6.5 /CUMM) 9.6 H 7.8 H Absolute Lymphocytes (1.2 - 3.4 /CUMM) 0.9 L 1.4 Absolute Monocytes (0.10 - 0.60 /CUMM) 0.6 0.7 H Absolute Eosinophils (0.0 - 0.7 /CUMM) 0.4 0.3 Absolute Basophils (0.0 - 0.2 /CUMM) 0 0 PUBS MCHC (33.0 - 37.0 G/DL) 33.1 32.9 L 16 04/24 1412 0600 Chemistry Sodium Cancelled Potassium Cancelled Chloride Cancelled Carbon Dioxide Cancelled Anion Gap Cancelled BUN Cancelled Creatinine Cancelled BUN/Creatinine Ratio Cancelled Hematology CBC w Diff Cancelled WBC Cancelled RBC Cancelled Hgb Cancelled Hct Cancelled MCV Cancelled MCH Cancelled RDW Cancelled Plt Count Cancelled MPV Cancelled PUBS MCHC Cancelled Urines Urine Color (YEL,AMB,STR) YEL Urine Clarity (CLEAR) HAZY H Urine pH (5.0 - 8.0) 6.0 Ur Specific [place] (1.001 - 1.035) 1.015 Urine Protein (NEG,<30 MG/DL) 100 H Urine Ketones (NEG) NEG Urine Nitrite (NEG) NEG Urine Bilirubin (NEG) NEG Urine Urobilinogen (0.1 - 1.0 EU/dl) 0.2 Ur Leukocyte Esterase (NEG) NEG Ur Microscopic SEDIMENT EXAMINED Urine WBC (0 - 2 /HPF) 1-3 H Ur Epithelial Cells (NONE,FEW) MOD H Urine Bacteria (NEG/NONE) MANY H Urine Hemoglobin (NEG) NEG Urine Glucose (N MG/DL) NEG 04/23 04/23 2347 2335 Chemistry Sodium (137 - 145 mmol/L) 143 Potassium (3.5 - 5.1 mmol/L) 3.0 L Chloride (98 - 107 mmol/L) 102 Carbon Dioxide (22 - 30 mmol/L) 25 Anion Gap (5 - 16) 16 BUN (7 - 17 mg/dL) 67 H Creatinine (0.5 - 1.0 mg/dL) 3.1 H Estimated GFR (>60 ml/min) 15 L BUN/Creatinine Ratio (7 - 25 %) 21.6 Glucose (65 - 99 mg/dL) 98 Calcium (8.4 - 10.2 mg/dL) 8.9 Magnesium (1.6 - 2.3 mg/dL) 2.4 H Iron (37 - 170 ug/dL) 27 L TIBC (265 - 497 ug/dL) 228 L Erythropoietin Pending Total Bilirubin (0.2 - 1.3 mg/dL) 0.4 AST (14 - 36 U/L) 17 ALT (9 - 52 U/L) 27 Alkaline Phosphatase (<127 U/L) 61 Prot Electrophoresis Pending Total Protein (6.3 - 8.2 g/dL) 6.5 Total Protein (PEP) Pending Albumin (3.5 - 5.0 g/dL) 3.6 Albumin % (PEP) Pending Globulin (1.9 - 4.2 gm/dL) 2.9 Albumin/Globulin Ratio (1.1 - 2.2 %) 1.2 Oidij-4-Yngojzvsf Pending Zdrok-5-Wkvmlfusn Pending Yior-5-Patbpvdh Pending Ldlb-0-Fwlgfful Pending Gamma Globulins Pending Abnorm Protein Band 1 Pending Abnorm Protein Band 2 Pending Abnorm Protein Band 3 Pending Vitamin B12 (239 - 931 pg/mL) 886 Methylmalonic Acid Pending Hematology CBC w Diff NO MAN DIFF REQ WBC (4.8 - 10.8 /CUMM) 10.9 H RBC (4.20 - 5.40 /CUMM) 2.63 L Hgb (12.0 - 16.0 G/DL) 7.4 *L Hct (37 - 47 %) 22.8 L MCV (81.0 - 99.0 FL) 86.7 MCH (27.0 - 31.0 PG) 28.2 RDW (11.5 - 14.5 %) 15.1 H Plt Count (130 - 400 /CUMM) 311 MPV (7.4 - 10.4 FL) 8.1 Gran % (42.2 - 75.2 %) 73.8 Lymphocytes % (20.5 - 51.1 %) 15.2 L Monocytes % (1.7 - 9.3 %) 7.8 Eosinophils % (0 - 5 %) 3.0 Basophils % (0.0 - 2.0 %) 0.2 Absolute Granulocytes (1.4 - 6.5 /CUMM) 8.0 H Absolute Lymphocytes (1.2 - 3.4 /CUMM) 1.6 Absolute Monocytes (0.10 - 0.60 /CUMM) 0.8 H Absolute Eosinophils (0.0 - 0.7 /CUMM) 0.3 Absolute Basophils (0.0 - 0.2 /CUMM) 0 PUBS MCHC (33.0 - 37.0 G/DL) 32.5 L Immunology Immunoelectrophoresis Pending
[2017-04-25 15:35] VITALS: BP 150/60
--- NOTE | 2017-04-25 21:10 | NUR ---
PT'S SPO2 NOTED TO BE 87% ON RA. PT DROWSY BUT AROUSABLE. STARTED ON 2L O2 NC. SPO2 NOW 93-94%. RT RICHARD MARKS.
[2017-04-25 22:28] VITALS: BP 154/60
[2017-04-26 06:29] VITALS: BP 148/62
[2017-04-26 08:24] LABS: ABSOLUTE BASOPHIL COUNT 0 /CUMM (0.0-0.2); ABSOLUTE EOSINOPHIL COUNT 0.3 /CUMM (0.0-0.7); ABSOLUTE GRANULOCYTE CT 8.5 /CUMM (1.4-6.5); ABSOLUTE LYMPH COUNT 1.3 /CUMM (1.2-3.4); ABSOLUTE MONOCYTE COUNT 0.8 /CUMM (0.10-0.60); BASOPHIL % 0.3 % (0.0-2.0); EOSINOPHIL % 2.6 % (0-5); GRANULOCYTE % 77.5 % (42.2-75.2); HEMATOCRIT 24.6 % (37-47); MEAN CORPUSCULAR HGB 28.9 PG (27.0-31.0); MEAN CORPUSCULAR HGB CONC 32.5 G/DL (33.0-37.0); MEAN CORPUSCULAR VOLUME 88.7 FL (81.0-99.0); MEAN PLATELET VOLUME 8.9 FL (7.4-10.4); PLATELET COUNT 305 /CUMM (130-400); RBC DISTRIBUTION WIDTH 15.3 % (11.5-14.5); RED BLOOD CELL CT 2.78 /CUMM (4.20-5.40)
--- NOTE | 2017-04-26 09:08 | PN-Observation ---
Observation Note Observation Note _ I have personally examined GREGOR HERNANDEZ. her disposition is uncertain at this time. Before a determination can be made, she requires continued observation for the following reasons [Continued back pain, inability to ambulate without assistance, creatinine above baseline, new oxygen requirement, low grade fever]. Assessment/Plan Problem List: 1. Low back pain at multiple sites 2. Acute on chronic renal insufficiency 3. Anemia 4. HTN (hypertension) 5. 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 She is being managed for intractable back pain and acute on chronic renal insufficiency.In addition, she has 1. Intractable Back Pain and Gait Instability after mechanical fall at home. * No acute fracture noted on lumbar X-ray (h/o old L1 fx) * CT and MRI of lumbar spine show no acute fractures, but showed degenerative changes, spondylosis and foraminal canal narrowing * PT recommend rehab placement * Will ask PT to reassess if pain is improved tomorrow * Will add another lidocaine patch for back pain daily * Continue IV tylenol and PO Oxycodone for pain * Will try to reduce need for IV morphine if possible 2. Acute on Chronic Renal Failure * Nephrology following * Patient appears less dry today. Encouraged her to drink liberal oral fluids * Continue to hold Lasix today as her creatinine is 2.8 this morning (Baseline around 2.3) * Contiunue spironolactone today * Re-assess renal function tomorrow morning with BEP * Nephro follow-up. No IV fluids per Nephrology * Given patient's history of MGUS, and now in acute on chronic renal failure with intractable back pain, we are concerned for transformation of her MGUS into Myeloma * Awaiting serum free light chains (quantification) as requested by nephrology and SPEP, IPEP. 3. Acute on Chronic Anemia * Patient did have a recent (03/25) colonoscopy and polypectomies * No history of blood per rectum. Suspect large component of her anemia is due to renal failure. * GI consult (Dr. Souza) appreciated. * Iron panel shows low serum iron and low TIBC and normal ferritin suggestive of anemia of chronic disease * Hemoglobin is stable today at 8 * Continue iron supplementation 5. NITHIN on CPAP * Patient uses CPAP at night at home and this may be contributing to her low O2 sats overnight * She was counselled to tell her son to bring her CPAP machine from home so she can use it in hospital 6.HTN- BP stable at present. * Continue Bystolic , Hydralazine, Amlodipine, losartan (Olmesartan equivalent). * Continue spironolactone 7. CAD- on Isosorbide/ASA. * Continue Isosorbide/ASA. 8. Hyperlipidemia * Continue Statin. DVT/Prophylaxis: mechanical Subjective Follow-up For: Intractable back pain Acute on chronic renal insufficiency Complaints: Back pain 10/10 Subjective: Ms Hernandez again complains of intractable back pain that is constant 10/10 intensity and worse with movement. She denies numbness or weakness of the limbs. She is feling frustrated that she is not getting better. She is a little more open to going to rehab. She states that she uses a CPAP at home and was counselled to bring it so she can use it in the hospital. Review of Systems Constitutional: Denies: chills, fever, weakness. Cardiovascular: Denies: chest pain, palpitations, syncope. Respiratory: Denies: cough, short of breath, sputum production, wheezing. Gastrointestinal: Denies: abdominal pain, constipation, diarrhea, nausea. Objective Last 24 Hrs of Vital Signs/I&O Vital Signs Date Time Temp Pulse Resp B/P B/P Pulse O2 O2 Flow FiO2 Mean Ox Delivery Rate 04/26 0747 74 148/62 04/26 0747 74 148/62 04/26 0747 74 148/62 04/26 0747 74 148/62 04/26 0746 74 148/62 04/26 0629 99.1 74 18 148/62 95 Nasal 2.0L Cannula 04/26 0000 Nasal 2.0L Cannula 04/25 2228 99.7 75 20 154/60 93 Nasal 2.0L Cannula 04/25 2106 75 154/60 04/25 1750 76 150/60 04/25 1535 99.0 76 18 150/60 93 Room Air 04/25 1047 74 144/68 04/25 1046 98.5 74 144/68 04/25 1046 74 144/68 04/25 1046 74 144/68 Intake & Output 04/26 1600 04/26 0800 04/26 0000 Intake Total 100 200 Output Total Balance 100 200 Intake, Oral 100 200 Physical Exam General Appearance: Alert, Oriented X3, Cooperative, No Acute Distress Skin: No Rashes Skin Temp/Moisture Exam: Warm/Dry Sepsis Skin Exam (color): Normal for Ethnicity HEENT: Atraumatic, EOMI, Mucous Membr. moist/pink Neck: Supple, No JVD, No thryomegaly Lymphatic: Cervical nl Cardiovascular: Regular Rate, Normal S1, Normal S2, No Murmurs Lungs: Clear to Auscultation, Normal Air Movement, Reduced air entry in lung base bilaterally with few fine crepitations Abdomen: Normal Bowel Sounds, Soft, No Tenderness, No Hepatospenomegaly, No Masses Neurological: Normal Speech, Strength at 5/5 X4 Ext, Normal Tone Extremities: Bilateral pitting pedal edema Current Medications: Current Medications Sig/Duong Start time Last Medication Dose Route Stop Time Status Admin Acetaminophen 975 MG Q8P PRN 04/25 1100 AC PO Acetaminophen 1,000 MG Q6P PRN 04/24 1045 AC 04/24 N/A 1 UNIT IV 1820 Acetaminophen 325 MG Q6P PRN 04/24 0930 DC PO Amlodipine Besylate 5 MG DAILY 04/24 1142 AC 04/26 PO 0746 Atorvastatin Calcium 40 MG 1700 04/24 1700 AC 04/25 PO 1750 Doxazosin Mesylate 1 MG DAILY 04/24 1245 AC 04/26 PO 0747 Ferrous Sulfate 325 MG DAILY 04/24 1143 AC 04/26 PO 0747 Hydralazine HCl 100 MG TID 04/24 1600 AC 04/26 PO 0747 Isosorbide 60 MG DAILY 04/24 1144 AC 04/26 Mononitrate PO 0747 Lidocaine 1 PAT DAILY 04/26 1015 AC EXT Lidocaine 1 PAT DAILY 04/25 1030 AC 04/26 EXT 0746 Losartan Potassium 50 MG DAILY 04/24 1237 AC 04/26 PO 0747 Morphine Sulfate 1 MG Q4P PRN 04/24 0930 AC 04/25 IV 1043 Nebivolol 5 MG DAILY 04/24 1144 AC 04/26 PO 0747 Omeprazole 40 MG DAILY AC 04/24 1228 AC 04/26 PO 0604 Oxycodone HCl 5 MG Q6P PRN 04/24 0930 AC 04/26 PO 0748 Potassium Chloride 10 MEQ DAILY 04/24 1144 AC 04/26 PO 0747 Spironolactone 12.5 MG DAILY 04/24 1145 AC 04/26 PO 0748 Last 24 Hrs of Labs/Mics: Laboratory Tests 04/26 04/26 0714 0714 Chemistry Sodium (137 - 145 mmol/L) 142 Potassium (3.5 - 5.1 mmol/L) 3.7 Chloride (98 - 107 mmol/L) 104 Carbon Dioxide (22 - 30 mmol/L) 25 Anion Gap (5 - 16) 14 BUN (7 - 17 mg/dL) 49 H Creatinine (0.5 - 1.0 mg/dL) 2.8 H Estimated GFR (>60 ml/min) 17 L BUN/Creatinine Ratio (7 - 25 %) 17.5 RBC Folate Pending Hematology CBC w Diff NO MAN DIFF REQ WBC (4.8 - 10.8 /CUMM) 11.0 H RBC (4.20 - 5.40 /CUMM) 2.78 L Hgb (12.0 - 16.0 G/DL) 8.0 L Hct (37 - 47 %) 24.6 L MCV (81.0 - 99.0 FL) 88.7 MCH (27.0 - 31.0 PG) 28.9 RDW (11.5 - 14.5 %) 15.3 H Plt Count (130 - 400 /CUMM) 305 MPV (7.4 - 10.4 FL) 8.9 Gran % (42.2 - 75.2 %) 77.5 H Lymphocytes % (20.5 - 51.1 %) 12.2 L Monocytes % (1.7 - 9.3 %) 7.4 Eosinophils % (0 - 5 %) 2.6 Basophils % (0.0 - 2.0 %) 0.3 Absolute Granulocytes (1.4 - 6.5 /CUMM) 8.5 H Absolute Lymphocytes (1.2 - 3.4 /CUMM) 1.3 Absolute Monocytes (0.10 - 0.60 /CUMM) 0.8 H Absolute Eosinophils (0.0 - 0.7 /CUMM) 0.3 Absolute Basophils (0.0 - 0.2 /CUMM) 0 PUBS MCHC (33.0 - 37.0 G/DL) 32.5 L
--- NOTE | 2017-04-26 09:11 | PN- Att Addend ---
Attending Addendum Attending Brief Note Patient is still reluctant to go to [facility], she is eager to work with physical therapy some more despite her back pain. Off note she is using the oral narcotic now and hasn't required any IV narcotics since 04/25. I am concerned that overnight when she was sleeping her sats fell, she has a low-grade temp of 99.1. She may be splinting and having atelectasis because of her back pain. Her creatinine has still not come down to her baseline and remains in the 2.8 range, her baseline is 2.2-2.3 and her diuretics remain on hold. She has significant CKD with hypertension and a history of MGUS. She is here with back pain with PATO on CKD and chronic anemia and her serum protein electrophoresis and light chains are pending to make sure that she hasn't developed a significant paraproteinemia. I spoke to case management and given that we are eagerly awaiting to see how she does with physical therapy, how her creatinine does in the next 24 hours and that she is eager to go home, we are going to continue the observation status for now and follow closely. Check a chest x-ray PA and lateral just to make sure that she is not developing a new infiltrate.
--- NOTE | 2017-04-26 10:44 | RADIOLOGY REPORT ---
EXAMINATION: XR CHEST CLINICAL INFORMATION: Reduced O2 saturation. Temperature of 99.1 degrees Fahrenheit. Presumptive diagnosis of atelectasis versus pneumonia. COMPARISON: Chest x-ray dated 10/22/2016. TECHNIQUE: 2 views of the chest were obtained. FINDINGS: The cardiomediastinal silhouette is enlarged. Ectasia and tortuosity of the ascending and descending aorta is again noted, unchanged. There is persistent central vascular congestion without overt pulmonary edema. Lungs bilaterally show linear opacities in the lung bases, consistent with subsegmental atelectasis. No focal dense consolidation is seen to suspect a pneumonia. No significant effusion or pneumothorax is seen. Osteopenia is suspected with superior endplate compression deformity of the L1 vertebral body again seen, unchanged. IMPRESSION: 1. Cardiomegaly and ectatic and tortuous aorta. 2. Central vascular congestion without overt pulmonary edema. 3. Bibasilar subsegmental atelectasis. No focal pneumonia. 4. Chronic superior endplate compression deformity of L1.
[2017-04-26 15:32] VITALS: BP 158/72
[2017-04-26 22:00] VITALS: BP 142/70
[2017-04-27 06:30] VITALS: BP 148/70
[2017-04-27 08:06] LABS: ABSOLUTE BASOPHIL COUNT 0 /CUMM (0.0-0.2); ABSOLUTE EOSINOPHIL COUNT 0.4 /CUMM (0.0-0.7); ABSOLUTE LYMPH COUNT 1.1 /CUMM (1.2-3.4); ABSOLUTE MONOCYTE COUNT 0.8 /CUMM (0.10-0.60); BASOPHIL % 0.2 % (0.0-2.0); EOSINOPHIL % 3.2 % (0-5); GRANULOCYTE % 79.9 % (42.2-75.2); MEAN CORPUSCULAR HGB 28.7 PG (27.0-31.0); MEAN CORPUSCULAR HGB CONC 32.5 G/DL (33.0-37.0); MEAN CORPUSCULAR VOLUME 88.3 FL (81.0-99.0); MEAN PLATELET VOLUME 8.9 FL (7.4-10.4); PLATELET COUNT 305 /CUMM (130-400); RBC DISTRIBUTION WIDTH 15.8 % (11.5-14.5); WHITE BLOOD CELL COUNT 11.3 /CUMM (4.8-10.8)
--- NOTE | 2017-04-27 09:11 | PN- Housestaff ---
LASHONDA SANDOVAL MD,CYNTHIA 04/27/17 0911: Subjective Follow-up For: Status post mechanical fall Acute Back pain Acute kidney injury on chronic kidney disease Acute on chronic anemia Complaints: Back pain Subjective: Patient is still complaining of acute back pain that started after the fall. Patient remained afebrile overnight but didn't spike a temperature of 100.8 around 2 PM Review of Systems Constitutional: Denies: chills, fever. EENTM: Denies: visual changes. Cardiovascular: Denies: chest pain, palpitations. Respiratory: Denies: cough, short of breath. Gastrointestinal: Denies: abdominal pain, nausea, vomiting. Objective Last 24 Hrs of Vital Signs/I&O Vital Signs Date Time Temp Pulse Resp B/P B/P Pulse O2 O2 Flow FiO2 Mean Ox Delivery Rate 04/27 1411 100.8 77 20 140/77 90 04/27 1405 92 Nasal 2.0L Cannula 04/27 1127 Room Air 04/27 1018 72 154/86 04/27 1018 72 154/86 04/27 1018 72 154/86 04/27 1018 72 154/86 04/27 1018 72 154/86 04/27 0630 99.1 69 20 148/70 91 Room Air 04/27 0000 92 Nasal 2.0L Cannula 04/26 2200 98.7 72 16 142/70 92 Nasal 2.0L Cannula 04/26 1632 56 130/60 04/26 1600 Nasal 2.0L Cannula 04/26 1532 98.7 74 20 158/72 94 Nasal 2.0L Cannula Intake & Output 04/27 1600 04/27 0800 04/27 0000 Intake Total 300 480 Output Total 501 600 200 Balance -501 -300 280 Intake, Oral 300 480 Output, Stool 1 Output, Urine 500 600 200 Patient 234 lb Weight Physical Exam General Appearance: Alert, Oriented X3, Cooperative, Mild Distress HEENT: Atraumatic Neck: Supple Cardiovascular: Regular Rate, Normal S1, Normal S2 Lungs: Clear to Auscultation Abdomen: Normal Bowel Sounds, Soft, No Tenderness Neurological: Normal Speech, Normal Tone, Sensation Intact Extremities: Bilateral lower extremity edema Vascular: Normal Pulses Other Physical Findings: RIGHT PARASPINAL TENDERNESS Current Medications: Current Medications Sig/Duong Start time Last Medication Dose Route Stop Time Status Admin Acetaminophen 975 MG .STK-MED ONE 06/18 1803 DC PO 06/18 1804 Acetaminophen 975 MG Q8P PRN 04/25 1100 AC 04/27 PO 1447 Acetaminophen 1,000 MG Q6P PRN 04/24 1045 04/24 N/A 1 UNIT IV 1820 Amlodipine Besylate 5 MG DAILY 04/24 1142 04/27 PO 1018 Atorvastatin Calcium 40 MG 1700 04/24 1700 AC 04/26 PO 1632 Azithromycin 500 MG DAILY 04/27 1515 Sodium Chloride 250 ML IV Ceftriaxone Sodium 1,000 MG DAILY 04/27 1515 IV Doxazosin Mesylate 1 MG DAILY 04/24 1245 AC 04/27 PO 1018 Famotidine 20 MG Q48 04/27 1000 AC 04/27 PO 1042 Ferrous Sulfate 325 MG DAILY 04/24 1143 AC 04/27 PO 1018 Hydralazine HCl 100 MG TID 04/24 1600 04/27 PO 1018 Isosorbide 60 MG DAILY 04/24 1144 AC 04/27 Mononitrate PO 1018 Lidocaine 1 PAT DAILY 04/26 1015 AC 04/27 EXT 1020 Lidocaine 1 PAT DAILY 04/25 1030 04/27 EXT 1019 Losartan Potassium 50 MG DAILY 04/24 1237 AC 04/27 PO 1018 Morphine Sulfate 1 MG Q4P PRN 04/24 0930 AC 04/27 IV 0559 Nebivolol 5 MG DAILY 04/24 1144 AC 04/27 PO 1018 Omeprazole 40 MG DAILY AC 04/24 1228 DC 04/27 PO 0559 Oxycodone HCl 5 MG Q6P PRN 04/24 0930 04/27 PO 1017 Potassium Chloride 10 MEQ DAILY 04/24 1144 04/27 PO 1018 Spironolactone 12.5 MG DAILY 04/24 1145 04/27 PO 1017 Last 24 Hrs of Lab/Ray Results Last 24 Hrs of Labs/Mics: Laboratory Tests 04/27/17 0650: Anion Gap 10, Estimated GFR 15 L, BUN/Creatinine Ratio 18.0, CBC w Diff NO MAN DIFF REQ, RBC 2.60 L, MCV 88.3, MCH 28.7, RDW 15.8 H, MPV 8.9, Gran % 79.9 H, Lymphocytes % 9.8 L, Monocytes % 6.9, Eosinophils % 3.2, Basophils % 0.2, Absolute Granulocytes 9.0 H, Absolute Lymphocytes 1.1 L, Absolute Monocytes 0.8 H, Absolute Eosinophils 0.4, Absolute Basophils 0, PUBS MCHC 32.5 L Microbiology 04/27 1340 URINE ROUT: Urine Culture - ORD 04/27 1340 LOWER RESP: Respiratory Culture - ORD 04/27 1340 LOWER RESP: Gram Stain - ORD 04/27 1340 BLOOD: Blood Culture - ORD 04/27 1340 BLOOD: Blood Culture - ORD Lines/Diet/Fluids Lines: none Restraints: none Assessment/Plan Assessment: Patient is a 76 y/o F with PMHx of uncontrolled HTN, HLD, T2DM, chronic anemia, CKD stage III, chronic venous insufficiency and 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 She is being managed for intractable back pain and acute on chronic renal insufficiency. Intractable Back Pain and Gait Instability after mechanical fall at home. Patient denied hitting her head after a fall. No acute fracture noted on lumbar X-ray (h/o old L1 fx) CT and MRI of lumbar spine show no acute fractures, but showed degenerative changes, spondylosis and foraminal canal narrowing PT recommend rehab placement Will follow-up with physical therapy to reassess if pain is improved tomorrow On Lidocaine patch for back pain daily Continue IV tylenol and PO Oxycodone for pain Flexeril was added today Community-acquired pneumonia Patient's oxygen requirement increased from baseline Although patient remained afebrile yesterday but did spike temperature of 100.8 around 2 PM. CXR showed Right upper lobe lung field opacity concerning for developing infiltrate and or atelectasis. WBC 11.3 Patient was pancultured with cultures, lower respiratory cultures and urine culture Patient was started on IV ceftriaxone and azithromycin [facility] Acute on Chronic Renal Failure Nephrology following Patient appears less dry today. Encouraged her to drink liberal oral fluids Continue to hold Lasix today as her creatinine is 3 this morning (Baseline around 2.3) Contiunue spironolactone today Re-assess renal function tomorrow morning with [facility] Nephro follow-up. No IV fluids per Nephrology Given patient's history of MGUS, and now in acute on chronic renal failure with intractable back pain, we are concerned for transformation of her MGUS into Myeloma Awaiting serum free light chains (quantification) as requested by nephrology and SPEP, IPEP. Acute and chronic anemia Multifactorial in origin, anemia of chronic disease loss iron deficiency anemia indicated increased RDW Patient did have a recent (03/25) colonoscopy and polypectomies No history of blood per rectum. Suspect large component of her anemia is due to renal failure. GI consult (Dr. Souza) appreciated. Hemoglobin today at 7.5 Continue iron supplementation Heme Onc Consult NITHIN on CPAP Patient uses CPAP at night at home and this may be contributing to her low O2 sats overnight She was counselled to tell her son to bring her CPAP machine from home so she can use it in hospital HTN Continue Bystolic , Hydralazine, Amlodipine, losartan (Olmesartan equivalent). Continue spironolactone CAD Continue Isosorbide/ASA. Hyperlipidemia Continue Statin. DVT/Prophylaxis: mechanical Patient is full code Patient is on pain management Patient is on CHF diet Problem List: 1. Fall at home 2. Chronic renal failure 3. Acute on chronic renal insufficiency Pain Ratin Pain Location: Back pain Pain Goal: Pain 4 or less Pain Plan: Continue current pain management and we added Flexeril today Tomorrow's Labs & Rationales: CBC for leukocytosis BEP for renal function DVT/Prophylaxis: mechanical BENNY POWELL 04/27/17 0929: Attending MD Review Statement Attending Statement Attending MD Statement: examined this patient, discuss w/resident/PA/SHAKE FEEDER, agreed w/resident/PA/SHAKE FEEDER, discussed with family, reviewed EMR data (avail), discussed with nursing, discussed with case mgmt, reviewed images, amended to note Attending Assessment/Plan: ASSESSMENT 1. S/p Mechanical fall 2. acute back pain 3. PATO on CKD 4. Acute on chronic anemia 5. Anemia multifactorial (AOCD+ component of fe defeciency) 6. hypertension 7. HFpEF 65% 8. ?h/o MGUS PLAN Admit to inpatient medical services nephrology following, diuretics on hold, bp managmenet as per nephro, ARB use as per nephro Anemia awaiting light chains, cont supportive care, hem consult pain control, optimising pain meds bp controlled, monitor cr. PT consult STR gi/dvt prophyalxis full code d/c planning anticipated, d/c if nephro ok.
--- NOTE | 2017-04-27 13:39 | NUR ---
1335- DR. CYNTHIA GALLEGO LORI NOTIFIED OF PT TEMP 100.7. PT WBC 11.3. REQUIRING 2L NC. BLOOD CULTURES TO BE ORDERED.
[2017-04-27 14:11] VITALS: BP 140/77
--- NOTE | 2017-04-27 14:50 | RADIOLOGY REPORT ---
EXAMINATION: XR CHEST CLINICAL INFORMATION: Shortness of breath with fever and elevated white count. COMPARISON: 04/26/2017. TECHNIQUE: 2 views of the chest were obtained. FINDINGS: Exam appears somewhat rotated. The cardiomediastinal silhouette is stable appearing with an uncoiled thoracic aorta. There is a new opacity identified in the suprahilar right upper lung field medially on the frontal view not as well-seen on the lateral view with a suggestion of developing air bronchograms along with volume loss in the right hemithorax which is a new finding. Follow-up imaging is recommended. The lungs and pleural spaces otherwise appear clear without evidence of congestion or significant appearing effusion. There is no evidence of pneumothorax or pulmonary edema. Included osseous structures appear largely unremarkable. IMPRESSION: Somewhat limited exam due to rotation. Right upper lobe lung field opacity concerning for developing infiltrate and or atelectasis. Continued follow-up imaging is recommended.
--- NOTE | 2017-04-27 16:34 | PN- Nephrology ---
Assessment/Plan Assessment: 1. CKD/PATO 2. Chronic/acute back pain; status post fall 3. Fever today of as yet uncertain etiology 4. Anemia 5. History of hyperlipidemia, chronic lower extremity edema possibly related to venous insufficiency, pulmonary hypertension, colonic polyps, anemia, chronic back pain and an MGUS Suggestion: 1. Maintain adequate hydration 2. Continue to monitor intake and output, chemistries daily 3. Check serum immunoelectrophoresis and serum free light chains if not already done Subjective Subjective: Patient feeling quite fatigued and still not quite herself. She continues to complain of back pain. Temperature 100.8 earlier today. No other localizing symptoms. Renal function had improved but creatinine has come up again. Electrolytes acceptable. Objective Vital Signs and I&Os Vital Signs Date Time Temp Pulse Resp B/P B/P Pulse O2 O2 Flow FiO2 Mean Ox Delivery Rate 04/27 1411 100.8 77 20 140/77 90 04/27 1405 92 Nasal 2.0L Cannula 04/27 1127 Room Air 04/27 1018 72 154/86 04/27 1018 72 154/86 04/27 1018 72 154/86 04/27 1018 72 154/86 04/27 1018 72 154/86 04/27 0630 99.1 69 20 148/70 91 Room Air 04/27 0000 92 Nasal 2.0L Cannula 04/26 2200 98.7 72 16 142/70 92 Nasal 2.0L Cannula 04/26 1632 56 130/60 Intake & Output 04/27 1600 04/27 0400 04/26 1600 04/26 0400 04/25 1600 04/25 0400 Intake Total 300 480 900 200 620 230 Output Total 801 384 792 4666 Balance -501 -20 450 200 -580 230 Intake, IV 130 Intake, Oral 300 480 900 200 620 100 Number 0 0 Bowel Movements Output, Stool 1 Output, Urine 800 [phone] Patient 234 lb Weight Physical Exam: General: Well-developed, obese white female in NAD Skin: No rash or jaundice HEENT: Conjunctivae pale, sclerae anicteric, mucous membranes moist Neck: Without masses or thyromegaly, no supraclavicular or cervical adenopathy Chest: Clear to P&A Heart: Regular rate and rhythm without S3 or rub Abdomen: Obese, soft and nontender without palpable masses or organomegaly Extremities: Trace edema more pronounced on the left Neuro: No focal findings, no asterixis or myoclonus Results Pertinent Lab Results: Laboratory Tests 04/27 04/26 0650 0714 Chemistry Sodium (137 - 145 mmol/L) 138 Potassium (3.5 - 5.1 mmol/L) 3.9 Chloride (98 - 107 mmol/L) 104 Carbon Dioxide (22 - 30 mmol/L) 24 Anion Gap (5 - 16) 10 BUN (7 - 17 mg/dL) 54 H Creatinine (0.5 - 1.0 mg/dL) 3.0 H Estimated GFR (>60 ml/min) 15 L BUN/Creatinine Ratio (7 - 25 %) 18.0 RBC Folate Pending Hematology CBC w Diff NO MAN DIFF REQ WBC (4.8 - 10.8 /CUMM) 11.3 H RBC (4.20 - 5.40 /CUMM) 2.60 L Hgb (12.0 - 16.0 G/DL) 7.5 L Hct (37 - 47 %) 23.0 L MCV (81.0 - 99.0 FL) 88.3 MCH (27.0 - 31.0 PG) 28.7 RDW (11.5 - 14.5 %) 15.8 H Plt Count (130 - 400 /CUMM) 305 MPV (7.4 - 10.4 FL) 8.9 Gran % (42.2 - 75.2 %) 79.9 H Lymphocytes % (20.5 - 51.1 %) 9.8 L Monocytes % (1.7 - 9.3 %) 6.9 Eosinophils % (0 - 5 %) 3.2 Basophils % (0.0 - 2.0 %) 0.2 Absolute Granulocytes (1.4 - 6.5 /CUMM) 9.0 H Absolute Lymphocytes (1.2 - 3.4 /CUMM) 1.1 L Absolute Monocytes (0.10 - 0.60 /CUMM) 0.8 H Absolute Eosinophils (0.0 - 0.7 /CUMM) 0.4 Absolute Basophils (0.0 - 0.2 /CUMM) 0 PUBS MCHC (33.0 - 37.0 G/DL) 32.5 L 04/26 04/25 0714 0630 Chemistry Sodium (137 - 145 mmol/L) 142 142 Potassium (3.5 - 5.1 mmol/L) 3.7 3.5 Chloride (98 - 107 mmol/L) 104 104 Carbon Dioxide (22 - 30 mmol/L) 25 25 Anion Gap (5 - 16) 14 13 BUN (7 - 17 mg/dL) 49 H 54 H Creatinine (0.5 - 1.0 mg/dL) 2.8 H 2.7 H Estimated GFR (>60 ml/min) 17 L 17 L BUN/Creatinine Ratio (7 - 25 %) 17.5 20.0 Phosphorus (2.5 - 4.5 mg/dL) 4.8 H Hematology CBC w Diff NO MAN DIFF REQ NO MAN DIFF REQ WBC (4.8 - 10.8 /CUMM) 11.0 H 11.5 H RBC (4.20 - 5.40 /CUMM) 2.78 L 2.80 L Hgb (12.0 - 16.0 G/DL) 8.0 L 8.1 L Hct (37 - 47 %) 24.6 L 24.6 L MCV (81.0 - 99.0 FL) 88.7 88.1 MCH (27.0 - 31.0 PG) 28.9 29.1 RDW (11.5 - 14.5 %) 15.3 H 15.4 H Plt Count (130 - 400 /CUMM) 305 273 MPV (7.4 - 10.4 FL) 8.9 9.0 Gran % (42.2 - 75.2 %) 77.5 H 83.2 H Lymphocytes % (20.5 - 51.1 %) 12.2 L 7.9 L Monocytes % (1.7 - 9.3 %) 7.4 5.0 Eosinophils % (0 - 5 %) 2.6 3.6 Basophils % (0.0 - 2.0 %) 0.3 0.3 Absolute Granulocytes (1.4 - 6.5 /CUMM) 8.5 H 9.6 H Absolute Lymphocytes (1.2 - 3.4 /CUMM) 1.3 0.9 L Absolute Monocytes (0.10 - 0.60 /CUMM) 0.8 H 0.6 Absolute Eosinophils (0.0 - 0.7 /CUMM) 0.3 0.4 Absolute Basophils (0.0 - 0.2 /CUMM) 0 0 PUBS MCHC (33.0 - 37.0 G/DL) 32.5 L 33.1 06/17 06/16 0600 1839 Coagulation PT Cancelled INR Cancelled APTT Cancelled Miscellaneous Ref Lab Test Result Pending
--- NOTE | 2017-04-27 17:05 | NUR ---
16:45- DR. JULES DUNCAN NOTIFIED PT TEMP 101.0. TYLENOL GIVEN AT 14:45, TEMP AT THAT TIME 100.7. PER DR. DUNCAN, PT TO BE GIVEN COLD PACK. RECHECK TEMP IN 30 MIN.
--- NOTE | 2017-04-27 17:46 | NUR ---
0219- CALL RECEIVED FROM LAB. DR. LASHONDA SANDOVAL HAD ORDERED LAB TEST ADD ONS FOR THE BLOOD DRAW PRIOR TO THE BLOOD TRANSFUSION SHE REC'D ON 04/24/17. PER THE LAB, THAT BLOOD IS NO LONGER AVAILABLE AND AN ADD ON TEST CANNOT BE ORDERED. DR. LASHONDA SANDOVAL PAGED WITH NO RESPONSE. COVERING PV INSTALLER TECH JULES DUNCAN NOTIFIED OF ABOVE.
[2017-04-27 22:03] VITALS: BP 130/74
[2017-04-28 06:50] VITALS: BP 132/72
--- NOTE | 2017-04-28 07:39 | PN- Housestaff ---
LASHONDA SANDOVAL MD,CYNTHIA 04/28/17 0739: Subjective Follow-up For: Community-acquired pneumonia Status post mechanical fall Acute Back pain Acute kidney injury on chronic kidney disease Acute on chronic anemia Complaints: patient is still complaining of back pain Subjective: According to the patient her pain gets better and she receives pain medications and increases back to a score of 8 or 10 as well as pain medication effect wear off. Review of Systems Constitutional: Denies: chills, fever. EENTM: Denies: visual changes. Cardiovascular: Denies: chest pain, palpitations. Respiratory: Denies: cough, short of breath. Gastrointestinal: Denies: abdominal pain, nausea, vomiting. Genitourinary: Denies: dysuria. Musculoskeletal: Reports: back pain. Objective Last 24 Hrs of Vital Signs/I&O Vital Signs Date Time Temp Pulse Resp B/P B/P Pulse O2 O2 Flow FiO2 Mean Ox Delivery Rate 04/28 0650 98.3 70 20 132/72 93 Nasal 2.0L Cannula 04/28 0000 Nasal 2.0L Cannula 04/27 2203 98.4 71 18 130/74 90 04/27 2118 76 140/80 04/27 1720 99.2 04/27 1705 80 138/78 04/27 1640 101.0 04/27 1639 101.0 04/27 1600 Nasal 2.0L Cannula 04/27 1411 100.8 77 20 140/77 90 04/27 1405 92 Nasal 2.0L Cannula 04/27 1127 Room Air 04/27 1018 72 154/86 04/27 1018 72 154/86 04/27 1018 72 154/86 04/27 1018 72 154/86 04/27 1018 72 154/86 Intake & Output 04/28 1600 04/28 0800 04/28 0000 Intake Total 120 410 Output Total 400 300 Balance -280 110 Intake, IV 170 Intake, Oral 120 240 Number 0 Bowel Movements Output, Urine 400 300 Physical Exam General Appearance: Alert, Oriented X3, Cooperative, Mild Distress HEENT: Atraumatic Neck: Supple Cardiovascular: Regular Rate, Normal S1, Normal S2 Lungs: decreased air entry at the lung bases Abdomen: Normal Bowel Sounds, Soft, No Tenderness Neurological: Normal Speech, Normal Tone, Sensation Intact Extremities: trace edema Current Medications: Current Medications Sig/Duong Start time Last Medication Dose Route Stop Time Status Admin Acetaminophen 975 MG .STK-MED ONE 04/27 1446 DC PO 04/27 1447 Acetaminophen 975 MG Q8P PRN 04/25 1100 AC 04/27 PO 1447 Acetaminophen 1,000 MG Q6P PRN 04/24 1045 AC 04/24 N/A 1 UNIT IV 1820 Amlodipine Besylate 5 MG DAILY 04/24 1142 AC 04/27 PO 1018 Atorvastatin Calcium 40 MG 1700 04/24 1700 AC 04/27 PO 1704 Azithromycin 500 MG DAILY 04/27 1515 AC 04/27 Sodium Chloride 250 ML IV 1743 Ceftriaxone Sodium 1,000 MG DAILY 04/27 1515 AC 04/27 IV 1742 Cyclobenzaprine HCl 5 MG BID 04/27 1527 AC 04/27 PO 2118 Doxazosin Mesylate 1 MG DAILY 04/24 1245 AC 04/27 PO 1018 Famotidine 20 MG Q48 04/27 1000 AC 04/27 PO 1042 Ferrous Sulfate 325 MG DAILY 04/24 1143 AC 04/27 PO 1018 Hydralazine HCl 100 MG TID 04/24 1600 AC 04/27 PO 2118 Isosorbide 60 MG DAILY 04/24 1144 AC 04/27 Mononitrate PO 1018 Lidocaine 1 PAT DAILY 04/26 1015 AC 04/27 EXT 1020 Lidocaine 1 PAT DAILY 04/25 1030 04/27 EXT 1019 Losartan Potassium 50 MG DAILY 04/24 1237 AC 04/27 PO 1018 Morphine Sulfate 1 MG Q4P PRN 04/24 0930 AC 04/28 IV 0615 Nebivolol 5 MG DAILY 04/24 1144 04/27 PO 1018 Omeprazole 40 MG DAILY AC 04/24 1228 DC 04/27 PO 0559 Oxycodone HCl 5 MG Q6P PRN 04/24 0930 04/27 PO 1017 Potassium Chloride 10 MEQ DAILY 04/24 1144 AC 04/27 PO 1018 Spironolactone 12.5 MG DAILY 04/24 1145 04/27 PO 1017 Last 24 Hrs of Lab/Ray Results Last 24 Hrs of Labs/Mics: Laboratory Tests 04/28/17 0715: Sodium Pending, Potassium Pending, Chloride Pending, Carbon Dioxide Pending, Anion Gap Pending, BUN Pending, Creatinine Pending, BUN/Creatinine Ratio Pending , CBC w Diff Pending, WBC Pending, RBC Pending, Hgb Pending, Hct Pending, MCV Pending, MCH Pending, RDW Pending, Plt Count Pending, MPV Pending, PUBS MCHC Pending 04/27/17 1640: Lactic Acid 0.7 04/27/17 1600: Ref Lab Test Result Pending Microbiology 04/27 1600 URINE ROUT: Urine Culture - RECD 04/27 1545 BLOOD: Blood Culture - RECD 04/27 1535 BLOOD: Blood Culture - RECD 04/27 1340 LOWER RESP: Respiratory Culture - COLB 04/27 1340 LOWER RESP: Gram Stain - COLB Lines/Diet/Fluids Lines: peripheral lines Restraints: none Assessment/Plan Assessment: Patient is a 76 y/o F with PMHx of uncontrolled HTN, HLD, T2DM, chronic anemia, CKD stage III, chronic venous insufficiency and 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 She is being managed for intractable back pain and acute on chronic renal insufficiency. Intractable Back Pain and Gait Instability after mechanical fall at home. Patient denied hitting her head after a fall. No acute fracture noted on lumbar X-ray (h/o old L1 fx) CT and MRI of lumbar spine show no acute fractures, but showed degenerative changes, spondylosis and foraminal canal narrowing PT recommend rehab placement Will follow-up with physical therapy to reassess if pain is improved tomorrow On Lidocaine patch for back pain daily Continue IV tylenol and PO Oxycodone for pain Flexeril was added yesterday Community-acquired pneumonia Patient's oxygen requirement increased from baseline Although patient remained afebrile yesterday but did spike temperature of 100.8 around 2 PM yesterday and a MAXIMUM TEMPERATURE of 101. Patient remained afebrile overnight CXR showed Right upper lobe lung field opacity concerning for developing infiltrate and or atelectasis. WBC 11.3---> pending Patient was pancultured with cultures, lower respiratory cultures and urine culture Patient was started on IV ceftriaxone and azithromycin TR nebs Acute on Chronic Renal Failure Nephrology following Patient appears less dry today. Encouraged her to drink liberal oral fluids Continue to hold Lasix today as her creatinine is 3 this morning (Baseline around 2.3) Contiunue spironolactone today Re-assess renal function tomorrow morning with BEP Nephro follow-up. No IV fluids per Nephrology Given patient's history of MGUS, and now in acute on chronic renal failure with intractable back pain, we are concerned for transformation of her MGUS into Myeloma Awaiting serum free light chains (quantification) as requested by nephrology and SPEP, IPEP. Acute and chronic anemia Multifactorial in origin, anemia of chronic disease loss iron deficiency anemia indicated increased RDW Patient did have a recent (03/25) colonoscopy and polypectomies No history of blood per rectum. Suspect large component of her anemia is due to renal failure. GI consult (Dr. Souza) appreciated. Hemoglobin today at 7.5 Continue iron supplementation Heme Onc Consult placed NITHIN on CPAP Patient uses CPAP at night at home and this may be contributing to her low O2 sats overnight She was counselled to tell her son to bring her CPAP machine from home so she can use it in hospital HTN Continue Bystolic , Hydralazine, Amlodipine, losartan (Olmesartan equivalent). Continue spironolactone CAD Continue Isosorbide/ASA. Hyperlipidemia Continue Statin. DVT/Prophylaxis: mechanical Patient is full code Patient is on pain management Patient is on CHF diet Problem List: 1. (HFpEF) heart failure with preserved ejection fraction 2. CKD (chronic kidney disease) stage 3, GFR 30-59 ml/min 3. Community acquired pneumonia Pain Ratin Pain Location: lower back pain Pain Goal: Pain 4 or less Pain Plan: Alternative pain management ordered Tomorrow's Labs & Rationales: CBC for leukocytosis BEP for renal function DVT/Prophylaxis: mechanical BENNY POWELL 04/28/17 0901: Attending MD Review Statement Attending Statement Attending MD Statement: examined this patient, discuss w/resident/PA/CLINICAL SERVICES DIRECTOR, agreed w/resident/PA/CLINICAL SERVICES DIRECTOR, discussed with family, reviewed EMR data (avail), discussed with nursing, discussed with case mgmt, reviewed images, amended to note Attending Assessment/Plan: ASSESSMENT 1. S/p Mechanical fall 2. acute back pain 3. PATO on CKD 4. Acute on chronic anemia 5. Anemia multifactorial (AOCD+ component of fe defeciency) 6. hypertension 7. HFpEF 65% 8. r/o multiple myeloma ?MGUS 9. Community acquired pneumonia RUL opacity. PLAN Admit to inpatient medical services started on i/v abx, oxygen supplementation, f/u blood cultures, sputum nephrology following, diuretics on hold, bp managmenet as per nephro, ARB use as per nephro Anemia cont supportive care, Fe tabs, hem appreciate. pain control, optimising pain meds bp controlled, monitor cr. PT consult STR gi/dvt prophyalxis full code d/c planning anticipated, d/c if nephro ok.
[2017-04-28 08:22] LABS: ABSOLUTE BASOPHIL COUNT 0 /CUMM (0.0-0.2); ABSOLUTE EOSINOPHIL COUNT 0.3 /CUMM (0.0-0.7); ABSOLUTE GRANULOCYTE CT 11.6 /CUMM (1.4-6.5); ABSOLUTE LYMPH COUNT 0.7 /CUMM (1.2-3.4); ABSOLUTE MONOCYTE COUNT 0.8 /CUMM (0.10-0.60); BASOPHIL % 0.2 % (0.0-2.0); GRANULOCYTE % 86.3 % (42.2-75.2); HEMATOCRIT 22.3 % (37-47); MEAN CORPUSCULAR HGB 28.9 PG (27.0-31.0); MEAN CORPUSCULAR HGB CONC 32.9 G/DL (33.0-37.0); MEAN CORPUSCULAR VOLUME 87.8 FL (81.0-99.0); MEAN PLATELET VOLUME 8.9 FL (7.4-10.4); PLATELET COUNT 326 /CUMM (130-400); RBC DISTRIBUTION WIDTH 15.4 % (11.5-14.5); RED BLOOD CELL CT 2.54 /CUMM (4.20-5.40)
[2017-04-28 09:56] LABS: WHITE BLOOD CELL COUNT 13.5 /CUMM (4.8-10.8)
--- NOTE | 2017-04-28 10:22 | Cons- Hematology ---
General Information and HPI Consulting Request Date of Consult: 04/28/17 Requested By: MAHAD CHEW MD Reason for Consult: anemia Source of Information: patient, old records Exam Limitations: no limitations History of Present Illness: Ms. Rice is a 76-year-old female with CKD stage III, HTN, DM, HLD, chronic back pain, anemia, pumonary hypertension, and MGUS who presented to the hospital after a fall and back pain. She was only able to give me a limited history today because she feels "tired." She had a mechanical fall at home after slipping off the toilet bowl. EMS was call and she was taken to ED. She reported no LOC, chest pain, shortness of breath, seizures, palpitations, or head injury. In the ED, she was hypertensive and blood work demonstrated hemoglobin of 7.4 g/dL and hematocrit of 22.8%. She was transfused with 1 unit of pRBC and hemoglobin improved with hematocrit of 24.6%. Her renal function (creatinine 3.0) was noted to be worse compared to baseline of around 1.9-2.4. GI and nephrology has seen patient. Hematology is consulted to help evaluate her back pain with anemia in the setting of reported MGUS. Allergies/Medications Allergies: Coded Allergies: NO KNOWN ALLERGIES (UNKNOWN 04/24/17) Home Med List: Amlodipine Bes/Olmesartan Med (Reina 5-40 MG Tablet) 5 MG-40 MG TABLET 1 TAB PO DAILY HEART (Reported) Aspirin (Children's Aspirin) 81 MG TAB.CHEW 1 TAB PO DAILY HEART HEALTH ( Reported) Cholecalciferol (Vitamin D3) 1,000 UNIT TABLET 1 TAB PO DAILY VITAMIN SUPPORT (Reported) Doxazosin Mesylate 2 MG TABLET 0.5 TAB PO DAILY HEART (Reported) Ferrous Sulfate 325 MG (65 MG IRON) TABLET 1 TAB PO DAILY SUPPLEMENT ( Reported) Furosemide 80 MG TABLET 1 TAB PO QAM FLUID RETENTION Furosemide 40 MG TABLET 1 TAB PO QPM HIGH BLOOD PRESSURE Hydralazine HCl 100 MG TABLET 1 TAB PO TID HIGH BLOOD PRESSURE Isosorbide Mononitrate (Isosorbide Mononitrate ER) 60 MG TAB.ER.24H 1 TAB PO DAILY HIGH BLOOD PRESSURE Multivitamin (Multiple Vitamins) 1 EACH TABLET 1 TAB PO DAILY VITAMIN SUPPORT (Reported) Nebivolol HCl (Bystolic) 5 MG TABLET 1 TAB PO DAILY HEART (Reported) [place]-3S/Dha/Epa/Fish Oil (Fish Oil 1,200 MG Softgel) 360-1,200MG CAPSULE 1 CAP PO DAILY SUPPLEMENT (Reported) Potassium Chloride 10 MEQ TABLET.ER 1 TAB PO DAILY ELECTROLYTES Rosuvastatin Calcium (Crestor) 40 MG TABLET 1 TAB PO DAILY CHOLESTEROL ( Reported) Spironolactone 25 MG TABLET 0.5 TAB PO DAILY HIGH BLOOD PRESSURE Vitamin E 200 UNIT CAPSULE 1 CAP PO DAILY SUPPLEMENT (Reported) Current Medications: Current Medications Sig/Duong Start time Last Medication Dose Route Stop Time Status Admin Acetaminophen 975 MG .STK-MED ONE 04/27 1446 DC PO 04/27 1447 Acetaminophen 975 MG Q8P PRN 04/25 1100 AC 04/27 PO 1447 Acetaminophen 1,000 MG Q6P PRN 04/24 1045 AC 04/24 N/A 1 UNIT IV 1820 Amlodipine Besylate 5 MG DAILY 04/24 1142 AC 04/28 PO 0910 Atorvastatin Calcium 40 MG 1700 04/24 1700 AC 04/27 PO 1704 Azithromycin 500 MG DAILY 04/27 1515 AC 04/28 Sodium Chloride 250 ML IV 0849 Ceftriaxone Sodium 1,000 MG DAILY 04/27 1515 AC 04/28 IV 0852 Cyclobenzaprine HCl 5 MG BID 04/27 1527 DC 04/28 PO 0911 Doxazosin Mesylate 1 MG DAILY 04/24 1245 AC 04/28 PO 0909 Famotidine 20 MG Q48 04/27 1000 AC 04/27 PO 1042 Ferrous Sulfate 325 MG DAILY 04/24 1143 AC 04/28 PO 0910 Hydralazine HCl 100 MG TID 04/24 1600 AC 04/28 PO 0906 Isosorbide 60 MG DAILY 04/24 1144 AC 04/28 Mononitrate PO 0909 Lidocaine 1 PAT DAILY 04/26 1015 AC 04/27 EXT 1020 Lidocaine 1 PAT DAILY 04/25 1030 AC 04/28 EXT 0916 Losartan Potassium 50 MG DAILY 04/24 1237 AC 04/28 PO 0910 Morphine Sulfate 1 MG Q4P PRN 04/24 0930 AC 04/28 IV 0615 Nebivolol 5 MG DAILY 04/24 1144 AC 04/28 PO 0911 Oxycodone HCl 5 MG Q6P PRN 04/24 0930 AC 04/27 PO 1017 Potassium Chloride 10 MEQ DAILY 04/24 1144 AC 04/28 PO 0910 Spironolactone 12.5 MG DAILY 04/24 1145 04/28 PO 0913 Review of Systems Review of Systems Constitutional: Denies: chills, fever. Cardiovascular: Reports: peripheral edema. Denies: chest pain, palpitations, syncope. Respiratory: Denies: cough, short of breath. GI: Denies: abdominal pain, diarrhea, nausea, bloody stool, vomiting. Genitourinary: Reports: frequency. Musculoskeletal: Reports: back pain, neck pain. Denies: joint pain, joint swelling. Skin: Denies: rash. Neurological/Psychological: Reports: ataxia. Denies: confusion. Hematologic/Endocrine: Denies: bruising, bleeding. 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 , Age 44; Cause: HTN (hypertension). FATHER, , Age 68; Cause: ASHD (arteriosclerotic heart disease). Psychosocial History Where Do You Live? Home Who Do You Live With? self Services at Home: None Primary Language: British Smoking Status: Never Smoked ETOH Use: denies use Illicit Drug Use: denies illicit drug use Living Will? no Power of Tour Director/HCP? no Other Social History: since 2001. Lives alone. No cigarettes, alcohol, or illicit drugs. Laid off from [email or web address] de[employer] in 1997. 3 sons (all in [place]) & 1 dtr (in [place])- all [employer]. Functional Ability ADLs Independent: dressing, eating, toileting, bathing. 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 Employment History Employment: Unemployed Profession/Employer: Laid off from [email or web address] 1997 ECHO Results (as available) Date of last Echo 10/23/16 EF% 65 Exam & Diagnostic Data Vital Signs and I&O Vital Signs Date Time Temp Pulse Resp B/P B/P Pulse O2 O2 Flow FiO2 Mean Ox Delivery Rate 04/28 0912 Room Air 04/28 0911 70 132/72 04/28 0910 70 132/72 04/28 0910 70 132/72 04/28 0909 70 132/72 04/28 0906 70 132/72 04/28 0650 98.3 70 20 132/72 93 Nasal 2.0L Cannula 04/28 0000 Nasal 2.0L Cannula 04/27 2203 98.4 71 18 130/74 90 04/27 2118 76 140/80 04/27 1720 99.2 04/27 1705 80 138/78 04/27 1640 101.0 04/27 1639 101.0 04/27 1600 Nasal 2.0L Cannula 04/27 1411 100.8 77 20 140/77 90 04/27 1405 92 Nasal 2.0L Cannula 04/27 1127 Room Air 04/27 1018 72 154/86 04/27 1018 72 154/86 04/27 1018 72 154/86 04/27 1018 72 154/86 04/27 1018 72 154/86 Intake & Output 04/28 1600 04/28 0800 04/28 0000 Intake Total 120 410 Output Total 400 300 Balance -280 110 Intake, IV 170 Intake, Oral 120 240 Number 0 Bowel Movements Output, Urine 400 300 Physical Exam General Appearance: no apparent distress, comfortable, obese Head: atraumatic Ears, Nose, Throat: normal pharynx Respiratory: chest non-tender, quiet respiration, decreased breath sounds (at bases) Cardiovascular: regular rate/rhythm Gastrointestinal: normal bowel sounds, soft, non-tender, obese Extremities: pedal edema (1+) Skin: normal color Lymphatic: no anterior cervical farzana Last 48 Hours of Lab Results: Laboratory Tests 04/28 04/27 04/27 04/27 0715 1640 1600 0650 Chemistry Sodium (137 - 145 mmol/L) 140 138 Potassium (3.5 - 5.1 mmol/L) 4.2 3.9 Chloride (98 - 107 mmol/L) 106 104 Carbon Dioxide (22 - 30 mmol/L) 23 24 Anion Gap (5 - 16) 10 10 BUN (7 - 17 mg/dL) 49 H 54 H Creatinine (0.5 - 1.0 mg/dL) 2.9 H 3.0 H Estimated GFR (>60 ml/min) 16 L 15 L BUN/Creatinine Ratio (7 - 25 %) 16.9 18.0 Lactic Acid (0.7 - 2.1 mmol/L) 0.7 Hematology CBC w Diff Pending NO MAN DIFF REQ WBC (4.8 - 10.8 /CUMM) Pending 11.3 H RBC (4.20 - 5.40 /CUMM) Pending 2.60 L Hgb (12.0 - 16.0 G/DL) Pending 7.5 L Hct (37 - 47 %) Pending 23.0 L MCV (81.0 - 99.0 FL) Pending 88.3 MCH (27.0 - 31.0 PG) Pending 28.7 RDW (11.5 - 14.5 %) Pending 15.8 H Plt Count (130 - 400 /CUMM) Pending 305 MPV (7.4 - 10.4 FL) Pending 8.9 Gran % (42.2 - 75.2 %) Pending 79.9 H Lymphocytes % (20.5 - 51.1 %) Pending 9.8 L Monocytes % (1.7 - 9.3 %) Pending 6.9 Eosinophils % (0 - 5 %) Pending 3.2 Basophils % (0.0 - 2.0 %) Pending 0.2 Absolute Granulocytes (1.4 - 6.5 /CUMM) Pending 9.0 H Absolute Lymphocytes (1.2 - 3.4 /CUMM) Pending 1.1 L Absolute Monocytes (0.10 - 0.60 /CUMM) Pending 0.8 H Absolute Eosinophils (0.0 - 0.7 /CUMM) Pending 0.4 Absolute Basophils (0.0 - 0.2 /CUMM) Pending 0 PUBS MCHC (33.0 - 37.0 G/DL) Pending 32.5 L Miscellaneous Ref Lab Test Result Pending Imaging/Other Studies: Lumbar spine CT 04/23/2017: Degenerative changes as described above, with marked facet arthropathy of the mid to lower lumbar spine. Mild loss of height in the superior endplate of L1 appears similar to prior. No new acute findings identified. Lumbar spine MRI 04/24/2017: 1. Mild, chronic anterior wedging deformity of L1. No acute fracture. 2. Lumbar spondylosis and mild levoconvex lumbar scoliosis. At L4-L5 there is grade 1 degenerative anterolisthesis with multifactorial mild narrowing of the subarticular recesses, contacting the traversing L5 nerve roots, and left greater than right foraminal stenosis coming in close proximity to the exiting L4 nerve roots. 3. Aneurysmal dilatation of the abdominal aorta, partially visualized. CXR 04/26/2017: 1. Cardiomegaly and ectatic and tortuous aorta. 2. Central vascular congestion without overt pulmonary edema. 3. Bibasilar subsegmental atelectasis. No focal pneumonia. 4. Chronic superior endplate compression deformity of L1. CXR 04/27/2017: Right upper lobe lung field opacity concerning for developing infiltrate and or atelectasis. Continued follow-up imaging is recommended. Assessment/Plan Assessment: Ms. 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 On admission, she had back pain and worsening anemia and renal dysfunction. Her creatinine has been around 1.9 to 2.4 for the last few years. On presentation, her creatinine has increased to 3.0. Her anemia has been running from 7.3 to 10.7 for at least 5 years. MGUS diagnosis is unclear. She has had normal SPEP and UPEP. Her calcium is normal. She has no noted protein gap. Serum free light chains ratio is normal. It is unlikely that she has MGUS. SPEP and UPEP can be checked again. 24-hour urine collection for UPEP can be done to increase accuracy. Iron studies suggest anemia of chronic disease. Anemia is relatively stable and likely related to her CKD. Erythropoietin is normal but should be higher given her anemia. She may need TRACEY to support her. Leukocytosis is concerning for infectious etiology with CXR demonstrating possible pneumonia and UA demonstrating likely UTI. She is now on antibiotic of CAP. Recommendations: 1. Check SPEP and UPEP 2. Consider 24-hour urine evaluation (UPEP 24-hour) 3. Follow up immunofixation 4. Monitor leukocytosis 5. Consider TRACEY support Problem List: 1. Acute back pain 2. Acute on chronic renal insufficiency 3. Anemia 4. CAD (coronary artery disease) 5. T2DM (type 2 diabetes mellitus) Other Findings/Comments: Please call [phone] with any questions or concerns. Consult Acknowledgment - Thank you for your consult request.
--- NOTE | 2017-04-28 11:06 | NUR ---
PHYSICAL THERAPY: Pt WAS APPROACHED IN ROOM LAYING IN BED ON HER SIDE WITH BACK FACING DOOR. SHE WAS SHIVERING AND REPORTED SHE WAS NOT FEELING WELL. MST REPORTED SHE HAD JUST GOT Pt BACK INTO BED AND DURING THE TRANSFER BOTH KNEES REPORTEDLY BUCKLED. THIS WAS NOT OBSERVED BY PT, HOWEVER Pt REFUSED TO PERFORM ANY EXERCISES EVEN WITH EDUCATION GIVEN IN REGARDS TO DECREASING PAIN AND HELPING TO WARM UP. Pt STATED HER PAIN WAS AT A 7-8/10.
--- NOTE | 2017-04-28 12:30 | NUR ---
NURSING NOTE:PATIENT VS T 100.8, P 86, R 20, BP 160/72, SPO2 87% ON 2L OF O2. DR. XIAO AND TOURIST CAMP ATTENDANT KARLI CALLED. AT BEDSIDE TO ASSESS PATIENT. MD ORDERED CT SCAN FOR PATIENT. RESPIRATORY THERAPIST CHANGED O2 FROM NC TO MASK @ 10%. SPO2. UP TO 92%.
--- NOTE | 2017-04-28 13:53 | CT SCAN REPORT ---
EXAMINATION: CT CHEST WITHOUT CONTRAST CLINICAL INFORMATION: 76-year-old patient with progressive dyspnea and hypoxia. Leukocytosis. COMPARISON: PA and lateral chest x-ray of 04/27/2017. TECHNIQUE: Multidetector volumetric CT imaging of the chest was performed without intravenous administration of contrast. Axial MIP volume rendering provided. Sagittal and coronal reformatted images were obtained. DLP: 7037.7 mGy-cm FINDINGS: REPAIRER KILN CAR: Consolidative changes are seen in the right paratracheal region. LUNGS: There is extensive airspace consolidation in the right upper and lower lobes particularly posteriorly with air bronchograms. There is volume loss in the right chest. No discrete pulmonary mass lesion is identified. The tracheobronchial tree is patent. The left lung is clear. MEDIASTINUM/KATE: The thyroid gland is unremarkable. The thoracic aorta is normal in caliber. There is no evidence of mediastinal or hilar adenopathy. The heart is mildly enlarged. There is no pericardial effusion. PLEURA: There is a small right pleural reaction. AXILLA/CHEST WALL: No supraclavicular or axillary adenopathy is identified. There is no evidence of a chest wall mass. UPPER ABDOMEN: The visualized liver has a normal size, contour, and attenuation. There is no evidence of cholelithiasis. The adrenal glands, pancreas, and spleen are unremarkable. The kidneys are moderately atrophic. There is a small hiatal hernia. OSSEOUS STRUCTURES: No suspicious focal osteolytic or osteoblastic changes are identified. IMPRESSION: 1. Right upper and right lower lobe consolidation consistent with pneumonia. 2. No evidence of a discrete pulmonary mass or adenopathy. 3. Patent tracheobronchial tree.
--- NOTE | 2017-04-28 14:00 | NUR ---
NURSING NOTE:RETURNED FROM CT SCAN @ 4650. ONE UNIT OF BLOOD ORDERED FOR PATIENT. H&H 7.3/.5. WAITING FOR BLOOD TO ARRIVE FROM THE BLOOD BANK.
--- NOTE | 2017-04-28 14:07 | NUR ---
PHYSICAL THERAPY: Pt WAS OUT OF ROOM IN AFTERNOON WHEN PT ATTEMPTED TO HAVE pt PARTICIPATE IN THERAPY FOLLOWING THIS MORNING'S REFUSAL.
--- NOTE | 2017-04-28 15:00 | NUR ---
NURSING NOTE: TEMP 101.3 @ 1500. CONTACTED MD AND STORAGE ENGINEER. TYLENOL GIVEN PER STORAGE ENGINEER AND CONTINUE TO MONITOR PATIENT. BLOOD ADMIN STARTED ORDERED. NO S&S OF ADVERSE REACTION. WILL CONTINUE TO MONITOR.
[2017-04-28 15:52] VITALS: BP 154/72
--- NOTE | 2017-04-28 16:25 | NUR ---
NURSING NOTE: PATIENT TO CT SCAN @ 1PM. A&O X 3 WITH C/O CRONIC BACK PAIN. SPO2 91% ON MASK @ 10%.
[2017-04-28 21:38] LABS: ABSOLUTE BASOPHIL COUNT 0 /CUMM (0.0-0.2); ABSOLUTE EOSINOPHIL COUNT 0.2 /CUMM (0.0-0.7); ABSOLUTE GRANULOCYTE CT 9.8 /CUMM (1.4-6.5); ABSOLUTE LYMPH COUNT 1.3 /CUMM (1.2-3.4); BASOPHIL % 0.1 % (0.0-2.0); EOSINOPHIL % 1.7 % (0-5); GRANULOCYTE % 79.5 % (42.2-75.2); HEMATOCRIT 22.9 % (37-47); MEAN CORPUSCULAR HGB CONC 32.7 G/DL (33.0-37.0); MEAN CORPUSCULAR VOLUME 88.7 FL (81.0-99.0); MEAN PLATELET VOLUME 9.3 FL (7.4-10.4); PLATELET COUNT 285 /CUMM (130-400); RBC DISTRIBUTION WIDTH 15.6 % (11.5-14.5); RED BLOOD CELL CT 2.58 /CUMM (4.20-5.40); WHITE BLOOD CELL COUNT 12.3 /CUMM (4.8-10.8)
[2017-04-28 22:46] VITALS: BP 142/70
[2017-04-29 00:21] VITALS: BP 136/66
--- NOTE | 2017-04-29 01:46 | NUR ---
AT 0015 PT C/O "CHEST HEAVINESS". VITALS STABLE BP 136/66, HR 70, RR22, O2 SAT 93% ON VENTI MASK, TEMP 98.6. PT IS SOB, DENIES HEADACHE/DIZZINESS/NAUSEA. PAGED DAVID CROFT MD. STAT EKG AND TROPONIN ORDERED. MD TO BEDSIDE TO ASSESS. TROPONINS NEGATIVE, EKG READ BY MD. NO FURTHER INTERVENTIONS, WILL MONTIOR.
[2017-04-29 06:46] VITALS: BP 154/72
--- NOTE | 2017-04-29 07:37 | PN- Housestaff ---
LASHONDA SANDOVAL MD,CYNTHIA 04/29/17 0737: Subjective Follow-up For: Community-acquired pneumonia Acute hypoxemic respiratory failure Status post mechanical fall Acute Back pain Acute kidney injury on chronic kidney disease Acute on chronic anemia Complaints: no complaints Subjective: Patient had increased shortness of breath overnight. Troponin and EKG was done to rule out ACS. Patient had increased oxygen requirement and was placed on Ventimask. Review of Systems Constitutional: Denies: chills, fever. Cardiovascular: Denies: chest pain, palpitations. Respiratory: Reports: short of breath. Denies: cough. Gastrointestinal: Denies: abdominal pain, nausea, vomiting. Genitourinary: Denies: dysuria. Musculoskeletal: Reports: back pain. Objective Last 24 Hrs of Vital Signs/I&O Vital Signs Date Time Temp Pulse Resp B/P B/P Pulse O2 O2 Flow FiO2 Mean Ox Delivery Rate 04/29 0924 152/94 04/29 0923 152/94 04/29 0923 152/94 04/29 0923 152/94 04/29 0923 152/94 04/29 0646 97.7 66 20 154/72 93 Venti Mask 10L 04/29 0021 98.6 70 22 136/66 93 Venti Mask 04/29 0000 93 Venti Mask 6.0L 04/28 2246 98.0 70 20 142/70 91 Venti Mask 04/28 2123 80 150/70 04/28 1925 94 Venti Mask 45% 04/28 1723 80 146/70 04/28 1600 91 Venti Mask 10L 04/28 1552 100.3 88 24 154/72 98 Intake & Output 04/29 1600 04/29 0800 04/29 0000 Intake Total 160 690 Output Total Balance 160 690 Intake, IV 450 Intake, Oral 160 240 Number 0 Bowel Movements Physical Exam General Appearance: Alert, Oriented X3, Cooperative, Mild Distress HEENT: Atraumatic Neck: Supple Cardiovascular: Regular Rate, Normal S1, Normal S2 Lungs: OVERALL DECREASED AIR ENTRY AT THE LUNG BASES Abdomen: Normal Bowel Sounds, Soft, No Tenderness Neurological: Normal Speech, Normal Tone, Sensation Intact Extremities: BILATERAL TRACE EXTREMITY EDEMA Current Medications: Current Medications Sig/Duong Start time Last Medication Dose Route Stop Time Status Admin Acetaminophen 975 MG .STK-MED ONE 04/28 1507 DC PO 04/28 1508 Acetaminophen 975 MG Q8P PRN 04/25 1100 AC 04/29 PO 0257 Acetaminophen 1,000 MG Q6P PRN 04/24 1045 AC 04/24 N/A 1 UNIT IV 1820 Albuterol Sulfate 3 ML BID 04/28 1315 04/28 INH 1919 Amlodipine Besylate 5 MG DAILY 04/24 1142 AC 04/29 PO 0923 Atorvastatin Calcium 40 MG 1700 04/24 1700 AC 04/28 PO 1723 Azithromycin 500 MG DAILY 04/27 1515 AC 04/29 Sodium Chloride 250 ML IV 0923 Ceftriaxone Sodium 1,000 MG DAILY 04/27 1515 AC 04/29 IV 0922 Doxazosin Mesylate 1 MG DAILY 04/24 1245 AC 04/29 PO 0923 Famotidine 20 MG Q48 04/27 1000 AC 04/29 PO 0923 Ferrous Sulfate 325 MG DAILY 04/24 1143 AC 04/29 PO 0923 Hydralazine HCl 100 MG TID 04/24 1600 AC 04/29 PO 0924 Isosorbide 60 MG DAILY 04/24 1144 AC 04/29 Mononitrate PO 0923 Lidocaine 1 PAT DAILY 04/26 1015 04/27 EXT 1020 Lidocaine 1 PAT DAILY 04/25 1030 04/29 EXT 0924 Losartan Potassium 50 MG DAILY 04/24 1237 AC 04/29 PO 0923 Morphine Sulfate 1 MG Q4P PRN 04/24 0930 04/28 IV 0615 Nebivolol 5 MG DAILY 04/24 1144 AC 04/29 PO 0923 Oxycodone HCl 5 MG Q6P PRN 04/24 0930 04/29 PO 0927 Polyethylene Glycol 17 GM DAILY 04/28 1039 04/29 PO 0924 Potassium Chloride 10 MEQ DAILY 04/24 1144 AC 04/29 PO 0923 Senna/Docusate Sodium 1 TAB BID 04/28 1039 04/29 PO 0923 Spironolactone 12.5 MG DAILY 04/24 1145 AC 04/29 PO 0924 Last 24 Hrs of Lab/Ray Results Last 24 Hrs of Labs/Mics: Laboratory Tests 04/29/17 0716: Troponin I Cancelled 04/29/17 0716: Anion Gap 11, Estimated GFR 16 L, BUN/Creatinine Ratio 16.6, Troponin I 0.06, CBC w Diff NO MAN DIFF REQ, RBC 2.72 L, MCV 88.6, MCH 29.1, RDW 15.4 H, MPV 8.9, Gran % 82.8 H, Lymphocytes % 7.7 L, Monocytes % 6.6, Eosinophils % 2.5, Basophils % 0.4, Absolute Granulocytes 10.6 H, Absolute Lymphocytes 1.0 L, Absolute Monocytes 0.8 H, Absolute Eosinophils 0.3, Absolute Basophils 0.1, PUBS MCHC 32.9 L 04/29/17 0040: Troponin I 0.07 04/28/172039: CBC w Diff NO MAN DIFF REQ, RBC 2.58 L, MCV 88.7, MCH 29.0, RDW 15.6 H, MPV 9.3, Gran % 79.5 H, Lymphocytes % 10.5 L, Monocytes % 8.2, Eosinophils % 1.7, Basophils % 0.1, Absolute Granulocytes 9.8 H, Absolute Lymphocytes 1.3, Absolute Monocytes 1.0 H, Absolute Eosinophils 0.2, Absolute Basophils 0, PUBS MCHC 32.7 L Lines/Diet/Fluids Lines: peripheral lines Restraints: none Assessment/Plan Assessment: Patient is a 76 y/o F with PMHx of uncontrolled HTN, HLD, T2DM, chronic anemia, CKD stage III, chronic venous insufficiency and 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 She is being managed for intractable back pain and acute on chronic renal insufficiency. Acute hypoxemic respiratory failure Likely secondary to volume overload secondary to blood transfusion or worsening of pneumonia In order to rule out aspiration we will get a swallow evaluation Continue with the same antibiotics for now Will obtain a stat chest x-ray to rule out volume overload Patient had a set of troponins and EKG to rule out ACS overnight Taper oxygen as tolerated Community-acquired pneumonia Patient's oxygen requirement increased from baseline Although patient remained afebrile yesterday but did spike temperature of 100.8 around 2 PM yesterday and a MAXIMUM TEMPERATURE of 101. Patient remained afebrile overnight CXR showed Right upper lobe lung field opacity concerning for developing infiltrate and or atelectasis. WBC 11.3---> 12.8 Patient was pancultured with cultures, lower respiratory cultures and urine culture Patient was started on IV ceftriaxone and azithromycin TRC nebs Intractable Back Pain and Gait Instability after mechanical fall at home. Patient denied hitting her head after a fall. No acute fracture noted on lumbar X-ray (h/o old L1 fx) CT and MRI of lumbar spine show no acute fractures, but showed degenerative changes, spondylosis and foraminal canal narrowing PT recommend rehab placement Will follow-up with physical therapy to reassess if pain is improved tomorrow On Lidocaine patch for back pain daily Continue IV tylenol and PO Oxycodone for pain Acute on Chronic Renal Failure Nephrology following Patient appears less dry today. Encouraged her to drink liberal oral fluids Continue to hold Lasix today as her creatinine is 3 this morning (Baseline around 2.3) Contiunue spironolactone today Re-assess renal function tomorrow morning with BEP Nephro follow-up. No IV fluids per Nephrology Given patient's history of MGUS, and now in acute on chronic renal failure with intractable back pain, we are concerned for transformation of her MGUS into Myeloma Awaiting serum free light chains (quantification) as requested by nephrology and SPEP, IPEP. Acute and chronic anemia Multifactorial in origin, anemia of chronic disease loss iron deficiency anemia indicated increased RDW Patient did have a recent (03/25) colonoscopy and polypectomies No history of blood per rectum. Suspect large component of her anemia is due to renal failure. GI consult (Dr. Souza) appreciated. Hemoglobin today at 7.9 after 2 blood transfusions during the course of admission Continue iron supplementation Heme Onc Consult NITHIN on CPAP Patient uses CPAP at night at home and this may be contributing to her low O2 sats overnight She was counselled to tell her son to bring her CPAP machine from home so she can use it in hospital HTN Continue Bystolic , Hydralazine, Amlodipine, losartan (Olmesartan equivalent). Continue spironolactone CAD Continue Isosorbide/ASA. Hyperlipidemia Continue Statin. DVT/Prophylaxis: mechanical Patient is full code Patient is on pain management Patient is on CHF diet Problem List: 1. Acute back pain 2. Community acquired pneumonia 3. Acute on chronic renal insufficiency Pain Ratin Pain Location: Back Pain Goal: Pain 4 or less Pain Plan: Pain medications Tomorrow's Labs & Rationales: CBC for leukocytosis next thing BEP for renal function DVT/Prophylaxis: mechanical BENNY POWELL 04/29/17 0925: Attending MD Review Statement Attending Statement Attending MD Statement: examined this patient, discuss w/resident/PA/FILTER PRESS SUPERVISOR, agreed w/resident/PA/FILTER PRESS SUPERVISOR, discussed with family, reviewed EMR data (avail), discussed with nursing, discussed with case mgmt, reviewed images, amended to note Attending Assessment/Plan: ASSESSMENT 1. S/p Mechanical fall 2. acute back pain 3. PATO on CKD 4. Acute on chronic anemia 5. Anemia multifactorial (AOCD+ component of fe defeciency) 6. hypertension 7. HFpEF 65% 8. r/o multiple myeloma ?MGUS 9. Community acquired pneumonia 10 Acute hypoxemic respiratory failure. (patient received transfusion). PLAN Admit to inpatient medical services obtain repeat chest xray c/w i/v abx, oxygen supplementation, f/u blood cultures negative so far, sputum. nephrology f/u, diuretics on hold, bp managmenet as per nephro, ARB use as per nephro Anemia s/p 2 unit of PRBC, cont supportive care, Fe tabs, hem appreciate. pain control, optimising pain meds bp controlled, monitor cr. PT consult STR gi/dvt prophyalxis full code d/c planning anticipated, d/c if nephro ok.
[2017-04-29 08:09] LABS: ABSOLUTE BASOPHIL COUNT 0.1 /CUMM (0.0-0.2); ABSOLUTE EOSINOPHIL COUNT 0.3 /CUMM (0.0-0.7); ABSOLUTE GRANULOCYTE CT 10.6 /CUMM (1.4-6.5); ABSOLUTE MONOCYTE COUNT 0.8 /CUMM (0.10-0.60); BASOPHIL % 0.4 % (0.0-2.0); EOSINOPHIL % 2.5 % (0-5); GRANULOCYTE % 82.8 % (42.2-75.2); HEMATOCRIT 24.1 % (37-47); MEAN CORPUSCULAR HGB 29.1 PG (27.0-31.0); MEAN CORPUSCULAR HGB CONC 32.9 G/DL (33.0-37.0); MEAN CORPUSCULAR VOLUME 88.6 FL (81.0-99.0); MEAN PLATELET VOLUME 8.9 FL (7.4-10.4); PLATELET COUNT 322 /CUMM (130-400); RBC DISTRIBUTION WIDTH 15.4 % (11.5-14.5); RED BLOOD CELL CT 2.72 /CUMM (4.20-5.40); WHITE BLOOD CELL COUNT 12.8 /CUMM (4.8-10.8)
--- NOTE | 2017-04-29 08:40 | PN- Hematology ---
See Addendum Subjective Subjective: She continues to have back pain. She states this has not improved much since admission. She has no new complaints. Review of Systems Constitutional: Denies: chills, fever. Cardiovascular: Denies: chest pain. Respiratory: Reports: short of breath. Denies: cough. Gastrointestinal: Denies: abdominal pain. Genitourinary: Denies: dysuria. Musculoskeletal: Reports: back pain. Neurological/Psychological: Reports: anxiety. Hematologic/Endocrine: Denies: bruising, bleeding. All Other Systems: Reviewed and Negative Objective Vital Signs and I&Os Vital Signs Date Time Temp Pulse Resp B/P B/P Pulse O2 O2 Flow FiO2 Mean Ox Delivery Rate 04/29 0646 97.7 66 20 154/72 93 Venti Mask 10L 04/29 0021 98.6 70 22 136/66 93 Venti Mask 04/29 0000 93 Venti Mask 6.0L 04/28 2246 98.0 70 20 142/70 91 Venti Mask 04/28 2123 80 150/70 04/28 1925 94 Venti Mask 45% 04/28 1723 80 146/70 04/28 1600 91 Venti Mask 10L 04/28 1552 100.3 88 24 154/72 98 04/28 0912 Room Air 04/28 0911 70 132/72 04/28 0910 70 132/72 04/28 0910 70 132/72 04/28 0909 70 132/72 04/28 0906 70 132/72 Intake & Output 04/29 1600 04/29 0800 04/29 0000 04/28 1600 04/28 0800 04/28 0000 Intake Total 160 690 840 120 410 Output Total 400 300 Balance 160 690 840 -280 110 Intake, IV 450 320 170 Intake, Oral 160 240 520 120 240 Number 0 0 0 Bowel Movements Output, Urine 400 300 Physical Exam: Constitutional: Denies: chills, fever. Cardiovascular: Reports: peripheral edema. Denies: chest pain, palpitations, syncope. Respiratory: Denies: cough, short of breath. GI: Denies: abdominal pain, diarrhea, nausea, bloody stool, vomiting. Genitourinary: Reports: frequency. Musculoskeletal: Reports: back pain, neck pain. Denies: joint pain, joint swelling. Skin: Denies: rash. All Other Systems: Reviewed and Negative Current Medications: Current Medications Sig/Duong Start time Last Medication Dose Route Stop Time Status Admin Acetaminophen 975 MG .STK-MED ONE 04/28 1507 DC PO 04/28 1508 Acetaminophen 975 MG Q8P PRN 04/25 1100 AC 04/29 PO 0257 Acetaminophen 1,000 MG Q6P PRN 04/24 1045 AC 04/24 N/A 1 UNIT IV 1820 Albuterol Sulfate 3 ML BID 04/28 1315 AC 04/28 INH 1919 Amlodipine Besylate 5 MG DAILY 04/24 1142 AC 04/28 PO 0910 Atorvastatin Calcium 40 MG 1700 04/24 1700 AC 04/28 PO 1723 Azithromycin 500 MG DAILY 04/27 1515 AC 04/28 Sodium Chloride 250 ML IV 0849 Ceftriaxone Sodium 1,000 MG DAILY 04/27 1515 AC 04/28 IV 0852 Cyclobenzaprine HCl 5 MG BID 04/27 1527 DC 04/28 PO 0911 Doxazosin Mesylate 1 MG DAILY 04/24 1245 AC 04/28 PO 0909 Famotidine 20 MG Q48 04/27 1000 AC 04/27 PO 1042 Ferrous Sulfate 325 MG DAILY 04/24 1143 AC 04/28 PO 0910 Hydralazine HCl 100 MG TID 04/24 1600 AC 04/28 PO 2123 Isosorbide 60 MG DAILY 04/24 1144 AC 04/28 Mononitrate PO 0909 Lidocaine 1 PAT DAILY 04/26 1015 AC 04/27 EXT 1020 Lidocaine 1 PAT DAILY 04/25 1030 AC 04/28 EXT 0916 Losartan Potassium 50 MG DAILY 04/24 1237 AC 04/28 PO 0910 Morphine Sulfate 1 MG Q4P PRN 04/24 0930 AC 04/28 IV 0615 Nebivolol 5 MG DAILY 04/24 1144 AC 04/28 PO 0911 Oxycodone HCl 5 MG Q6P PRN 04/24 0930 AC 04/29 PO 0101 Polyethylene Glycol 17 GM DAILY 04/28 1039 AC 04/28 PO 1722 Potassium Chloride 10 MEQ DAILY 04/24 1144 AC 04/28 PO 0910 Senna/Docusate Sodium 1 TAB BID 04/28 1039 AC 04/28 PO 2122 Spironolactone 12.5 MG DAILY 04/24 1145 AC 04/28 PO 0913 Results Last 24 Hours of Lab Results: Laboratory Tests 04/29 04/29 04/29 0716 0716 0040 Chemistry Sodium Pending Potassium Pending Chloride Pending Carbon Dioxide Pending Anion Gap Pending BUN Pending Creatinine Pending BUN/Creatinine Ratio Pending Troponin I (< 0.11 ng/ml) Cancelled Pending 0.07 Hematology CBC w Diff Pending WBC Pending RBC Pending Hgb Pending Hct Pending MCV Pending MCH Pending RDW Pending Plt Count Pending MPV Pending PUBS MCHC Pending 04/28 2040 Hematology CBC w Diff NO MAN DIFF REQ WBC (4.8 - 10.8 /CUMM) 12.3 H RBC (4.20 - 5.40 /CUMM) 2.58 L Hgb (12.0 - 16.0 G/DL) 7.5 L Hct (37 - 47 %) 22.9 L MCV (81.0 - 99.0 FL) 88.7 MCH (27.0 - 31.0 PG) 29.0 RDW (11.5 - 14.5 %) 15.6 H Plt Count (130 - 400 /CUMM) 285 MPV (7.4 - 10.4 FL) 9.3 Gran % (42.2 - 75.2 %) 79.5 H Lymphocytes % (20.5 - 51.1 %) 10.5 L Monocytes % (1.7 - 9.3 %) 8.2 Eosinophils % (0 - 5 %) 1.7 Basophils % (0.0 - 2.0 %) 0.1 Absolute Granulocytes (1.4 - 6.5 /CUMM) 9.8 H Absolute Lymphocytes (1.2 - 3.4 /CUMM) 1.3 Absolute Monocytes (0.10 - 0.60 /CUMM) 1.0 H Absolute Eosinophils (0.0 - 0.7 /CUMM) 0.2 Absolute Basophils (0.0 - 0.2 /CUMM) 0 PUBS MCHC (33.0 - 37.0 G/DL) 32.7 L Recent Imaging Studies: Chest CT 04/28/2017: 1. Right upper and right lower lobe consolidation consistent with pneumonia. 2. No evidence of a discrete pulmonary mass or adenopathy. 3. Patent tracheobronchial tree. Assessment/Plan Assessment/Recommendations: Ms. 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 On admission, she had back pain and worsening anemia and renal dysfunction. Her creatinine has been around 1.9 to 2.4 for the last few years. On presentation, her creatinine has increased to 3.0. Her anemia has been running from 7.3 to 10.7 for at least 5 years. MGUS diagnosis is unclear. She has had normal SPEP and UPEP. Her calcium is normal. She has no noted protein gap. Serum free light chains ratio is normal. It is unlikely that she has MGUS. SPEP and UPEP are pending. She received 1 unit of pRBC yesterday with some improving in her hemoglobin. Anemia is likely related to her CKD. She may need TRACEY to support her. Her leukocytosis may be infection related with CT demonstrating pneumonia with fever. She is now on antibiotics (azithromycin and ceftriaxone) of CAP. Recommendations: 1. Follow up on SPEP and UPEP 2. Consider 24-hour urine evaluation (UPEP 24-hour) 3. Follow up immunofixation 4. Consider TRACEY support 5. Nephrology recommendations on CKD Please call [phone] with any questions or concerns. Problem List: 1. Community acquired pneumonia 2. Acute back pain 3. CAD (coronary artery disease) 4. Acute on chronic renal insufficiency 5. Anemia
--- NOTE | 2017-04-29 10:26 | NUR ---
PHYSICAL THERAPY: Pt APPROACHED THIS MORNING HOWEVER WAS MELVIN.
--- NOTE | 2017-04-29 10:39 | RADIOLOGY REPORT ---
EXAMINATION: XR CHEST CLINICAL INFORMATION: Increasing oxygen demand and persistent leukocytosis. COMPARISON: None TECHNIQUE: 2 views of the chest were obtained. FINDINGS: Ill-defined, hazy opacities in the right upper and right lower lobes have worsened compared to 04/27/2017. The right lateral costophrenic sulcus appears blunted, suggestive of a trace pleural effusion. Again noted is a large cardiac silhouette with prominent mediastinal fat. The trachea is midline in position. There is atherosclerotic calcification of the ectatic appearing aorta. No acute skeletal findings. IMPRESSION: Ill-defined, hazy opacities in the right lung appear slightly worse compared to 04/27/2017.
--- NOTE | 2017-04-29 12:04 | NUR ---
PHYSICAL THERAPY: CANCELLED TX TODAY S/T CURRENT MEDICAL STATUS; USING VENTI MASK, INCREASING PAIN, AND WORSENING PNA CONFIRMED WITH CXR.
--- NOTE | 2017-04-29 13:54 | Event Note ---
Event Note Event Note: Rapid response was called round 1:30pm as patient had a mechanical fall. She was getting up the chair in an attempt to wipe water on the floor taht she may have spilled earlier and she slipped and fell down on her right side. No LOC, trauma to head. Denies CP, SOB, palpitations, dizziness, and or lightheadedness. Vitals: BP: HR: 98; RR: 20; A/F; FSG: GCS: 15/15 On physical exam she was in mild to moderate respiratory distress as she was off oxygen. On physical exam, she has morbid obesity; A&OX3 and in mild to moderate respiratory distress, HEENT reveals PERRLA. Cardiovascular exam pertinent for normal S1, S2, no murmers appreciated. Chest has mild ronchi bilaterally. Abdominal exam bengin. Examination of extremities revealed 2+ b/l edema. There is also blood draining from the right forear, afetr her IV was pulled out while falling. Neuro exam is grossly unremarkable. Repsiratory was by bedside, and she was placed on oxygen. Transferred back to bed. Will place on fall precautions and get orthostatic vitals. Hold off head CT at this time. Patient denies having pain.
[2017-04-29 14:00] VITALS: BP 152/90
--- NOTE | 2017-04-29 14:24 | Cons- Pulmonary ---
General Information and HPI Consulting Request Date of Consult: 04/29/17 Requested By: med team History of Present Illness: Ms. 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 On admission, she had back pain and worsening anemia and renal dysfunction. Since he came in she has been significantly febrile which is slowly improving. A chest x-ray initially had shown some right middle lobe infiltrate. There was some central vascular compression with L1 fracture. Subsequently a CT scan was done yesterday which showed significant dense consolidation with pneumonia in the right middle lobe and lower lobe with no mass with patent tracheobronchial tree. 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 Since admission she's been having worsening renal insufficiency. And she also has had significant anemia for which she has received transfusion. Since she did receive transfusion yesterday she had become acutely more dyspneic and had to require more than 45% FiO2 since yesterday. Hence this consult. When I saw her she had just fallen again and this was an accidental fall as she was trying to transfer out of her chair and there was no obvious injury. She is not complaining any cough which was productive but she does have a dry cough nausea vomiting but no clear history suggestive of aspiration. No fever this morning but her MAXIMUM TEMPERATURE was 101 days ago. Review of symptoms no loss of weight no nausea vomiting no significant diarrhea but she does have previous history of a C. difficile. Allergies/Medications Allergies: Coded Allergies: NO KNOWN ALLERGIES (UNKNOWN 04/24/17) Home Med List: Amlodipine Bes/Olmesartan Med (Reina 5-40 MG Tablet) 5 MG-40 MG TABLET 1 TAB PO DAILY HEART (Reported) Aspirin (Children's Aspirin) 81 MG TAB.CHEW 1 TAB PO DAILY HEART HEALTH ( Reported) Cholecalciferol (Vitamin D3) 1,000 UNIT TABLET 1 TAB PO DAILY VITAMIN SUPPORT (Reported) Doxazosin Mesylate 2 MG TABLET 0.5 TAB PO DAILY HEART (Reported) Ferrous Sulfate 325 MG (65 MG IRON) TABLET 1 TAB PO DAILY SUPPLEMENT ( Reported) Furosemide 80 MG TABLET 1 TAB PO QAM FLUID RETENTION Furosemide 40 MG TABLET 1 TAB PO QPM HIGH BLOOD PRESSURE Hydralazine HCl 100 MG TABLET 1 TAB PO TID HIGH BLOOD PRESSURE Isosorbide Mononitrate (Isosorbide Mononitrate ER) 60 MG TAB.ER.24H 1 TAB PO DAILY HIGH BLOOD PRESSURE Multivitamin (Multiple Vitamins) 1 EACH TABLET 1 TAB PO DAILY VITAMIN SUPPORT (Reported) Nebivolol HCl (Bystolic) 5 MG TABLET 1 TAB PO DAILY HEART (Reported) [place]-3S/Dha/Epa/Fish Oil (Fish Oil 1,200 MG Softgel) 360-1,200MG CAPSULE 1 CAP PO DAILY SUPPLEMENT (Reported) Potassium Chloride 10 MEQ TABLET.ER 1 TAB PO DAILY ELECTROLYTES Rosuvastatin Calcium (Crestor) 40 MG TABLET 1 TAB PO DAILY CHOLESTEROL ( Reported) Spironolactone 25 MG TABLET 0.5 TAB PO DAILY HIGH BLOOD PRESSURE Vitamin E 200 UNIT CAPSULE 1 CAP PO DAILY SUPPLEMENT (Reported) Review of Systems Review of Systems Constitutional: Denies: see HPI. Comments Review of Systems Constitutional: Denies: chills, fever. Cardiovascular: Denies: chest pain. Respiratory: Reports: short of breath. Denies: cough. Gastrointestinal: Denies: abdominal pain. Genitourinary: Denies: dysuria. Musculoskeletal: Reports: back pain. Neurological/Psychological: Reports: anxiety. Hematologic/Endocrine: Denies: bruising, bleeding. 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 , Age 44; Cause: HTN (hypertension). FATHER, , Age 68; Cause: ASHD (arteriosclerotic heart disease). Psychosocial History Where Do You Live? Home Who Do You Live With? self Services at Home: None Primary Language: Faroese Smoking Status: Never Smoked ETOH Use: denies use Illicit Drug Use: denies illicit drug use Living Will? no Power of Specialty Foods Cook/HCP? no Other Social History: since 2001. Lives alone. No cigarettes, alcohol, or illicit drugs. Laid off from [employer] in 1997. 3 sons (all in [place]) & 1 dtr (in [place])- all [employer]. Functional Ability ADLs Independent: dressing, eating, toileting, bathing. 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 Employment History Employment: Unemployed Profession/Employer: Laid off from [employer] 1997 ECHO Results (as available) Date of last Echo 10/23/16 EF% 65 Exam & Diagnostic Data Last 24 Hrs of Vital Signs/I&O Vital Signs Date Time Temp Pulse Resp B/P B/P Pulse O2 O2 Flow FiO2 Mean Ox Delivery Rate 04/29 1212 89 Venti Mask 45% 04/29 0924 152/94 04/29 0923 152/94 04/29 0923 152/94 04/29 0923 152/94 04/29 0923 152/94 04/29 0800 93 Venti Mask 10L 04/29 0646 97.7 66 20 154/72 93 Venti Mask 10L 04/29 0021 98.6 70 22 136/66 93 Venti Mask 04/29 0000 93 Venti Mask 6.0L 04/28 2246 98.0 70 20 142/70 91 Venti Mask 04/28 2123 80 150/70 04/28 1925 94 Venti Mask 45% 04/28 1723 80 146/70 04/28 1600 91 Venti Mask 10L 04/28 1552 100.3 88 24 154/72 98 Intake & Output 04/29 1600 04/29 0800 04/29 0000 Intake Total 160 690 Output Total Balance 160 690 Intake, IV 450 Intake, Oral 160 240 Number 0 Bowel Movements Last 48 Hrs of Labs/Ray: Laboratory Tests 04/29/17 1200: pH 7.36, pCO2 41, pO2 72 L, HCO3 22, ABG O2 Sat (Measured) 93.0 L, Carboxyhemoglobin 0.3 L, O2 Concentration % 45%, O2 Delivery Method VM, Phlebotomy Draw Site LEFT RADIAL 04/29/17 0716: Troponin I Cancelled 04/29/17 0716: Anion Gap 11, Estimated GFR 16 L, BUN/Creatinine Ratio 16.6, Troponin I 0.06, CBC w Diff NO MAN DIFF REQ, RBC 2.72 L, MCV 88.6, MCH 29.1, RDW 15.4 H, MPV 8.9, Gran % 82.8 H, Lymphocytes % 7.7 L, Monocytes % 6.6, Eosinophils % 2.5, Basophils % 0.4, Absolute Granulocytes 10.6 H, Absolute Lymphocytes 1.0 L, Absolute Monocytes 0.8 H, Absolute Eosinophils 0.3, Absolute Basophils 0.1, PUBS MCHC 32.9 L 04/29/17 0040: Troponin I 0.07 04/28/17 2040: CBC w Diff NO MAN DIFF REQ, RBC 2.58 L, MCV 88.7, MCH 29.0, RDW 15.6 H, MPV 9.3, Gran % 79.5 H, Lymphocytes % 10.5 L, Monocytes % 8.2, Eosinophils % 1.7, Basophils % 0.1, Absolute Granulocytes 9.8 H, Absolute Lymphocytes 1.3, Absolute Monocytes 1.0 H, Absolute Eosinophils 0.2, Absolute Basophils 0, PUBS MCHC 32.7 L 04/28/17 0715: Anion Gap 10, Estimated GFR 16 L, BUN/Creatinine Ratio 16.9, CBC w Diff NO MAN DIFF REQ, RBC 2.54 L, MCV 87.8, MCH 28.9, RDW 15.4 H, MPV 8.9, Gran % 86.3 H, Lymphocytes % 5.5 L, Monocytes % 6.0, Eosinophils % 2.0, Basophils % 0.2, Absolute Granulocytes 11.6 H, Absolute Lymphocytes 0.7 L, Absolute Monocytes 0.8 H, Absolute Eosinophils 0.3, Absolute Basophils 0, PUBS MCHC 32.9 L 04/27/17 1640: Lactic Acid 0.7 04/27/17 1600: Ref Lab Test Result Pending Microbiology 04/27 1600 URINE ROUT: Urine Culture - COMP Assessment/Plan Impression/Plan: CT chest IMPRESSION: 1. Right upper and right lower lobe consolidation consistent with pneumonia. 2. No evidence of a discrete pulmonary mass or adenopathy. 3. Patent tracheobronchial tree. DICTATED BY: CHEYANNE CHANCE MD DATE/TIME DICTATED:04/28/171341 Physical Exam General Appearance: Alert, Oriented X3, Cooperative, Mild Distress HEENT: Atraumatic Neck: Supple Cardiovascular: Regular Rate, Normal S1, Normal S2 Lungs: OVERALL DECREASED AIR ENTRY AT THE LUNG BASES,. wheezing noted bilaterally Abdomen: Normal Bowel Sounds, Soft, No Tenderness Neurological: Normal Speech, Normal Tone, Sensation Intact Extremities: BILATERAL TRACE EXTREMITY EDEMA IMPRESSION This is a 76-year-old lady with hypertension, hyperlipidemia, type 2 diabetes, chronic significant anemia, worsening chronic kidney diseasestage III versus 4, chronic venous insufficiency, diastolic dysfunction with previous heart failure, recurrent mechanical fall at home, probable neuropathy, recent colonoscopy with no malignancy with multiple polyps removed, significant lumbosacral degeneration with chronic L1 fracture, chronic low back pain, normocytic anemia, chronic lower extremity edema, now has * Acute hypoxemic respiratory failure related to significant pneumonia multi lobar in the right side with pleurisy now complicated by bilateral pulmonary infiltrates after she has received blood transfusion suggestive of acute lung injury probably from transfusion versus worsening pneumonia * Rule out aspiration but that seems less likely, swallow eval bedside neg * Significant community-acquired pneumonia in a lady with previous history of C. difficile with previous history of some some dysfunction of her immunoglobulins. No previous history of Pseudomonas. High risk for decompensation * Morbid obesity with signs and symptoms suggestive of obstructive sleep apnea but patient is not hypercarbic * Anemia of chronic disease which is now made worse by renal failure followed by hematology at this time * Significant back pain and gait instability with recent fall aswell rule out significant neuropathy probably from diabetes, compounded by significant degenerative joint and disc disease in the lumbosacral area with L5 nerve root involvement in the left with right foraminal stenosis. * Pleuritic chest pain due to pleurisy * L1 fracture which appears to be chronic * Aneurysmal dilatation of aorta noted in the MRI * Hypertension, hyperlipidemia, diabetes relatively stable at this time * Chronic venous insufficiency with lower extremity edema * Significant diastolic dysfunction of the heart with previous history of heart failure probably now fluid overloaded after blood transfusion RECOMMENDATION * Switch her to high flow oxygen * Continue intravenous antibiotics * 1 dose of Vanco * Swab nose for staph aureus * If the blood pressure is low can hold her CONNIE inhibitor * Watch potassium as she is on spironolactone, please consider stopping spironolactone * Patient would need neurology evaluation the future as she has had recurrent fall to rule out peripheral neuropathy etc. * Echocardiogram * Adequate sugar management * Transfuse only if it's absolutely necessary * Urinary Legionella and strep pneumo antigen * Watch for C. difficile * We will hold steroids for now as she does have pleural reaction etc. * Strict I's and O's * Repeat chest x-ray in 1-2 days evaluate and see whether she has had any pleural reaction versus pleural effusion Consult Acknowledgment - Thank you for your consult request.
[2017-04-29 14:42] VITALS: BP 144/70
--- NOTE | 2017-04-29 19:47 | NUR ---
LATE ENTRY: RAPID RESPONCE WAS CALLED AT 1340 FOR FALL. PT WAS ATTEMPTING TO MOVE SO THE FLOOR COULD BE MOPED DUE TO SPILT WATER. PT HAD RECENTLY BEEN GIVEN 80MG IV LASIX AND LARGE INCONTINENCE WAS NOTED WELL. PT REPORTS NO HEAD TRAUMA R/T TO FALL STATING " I LANDED ON MY RIGHT HIP AND SHOULDER" PT DENIES LOC. PT WAS ASSISTED TO SITTING POSTION THEN ASSISTED BACK TO BED WITH A MAX ASSITED X3. NO TRAUMA OR DEFORMITY WAS NOTED. WILL CONTINUE TO MONITOR.
[2017-04-29 22:21] VITALS: BP 142/70
[2017-04-30 06:27] VITALS: BP 130/72
[2017-04-30 07:59] LABS: ABSOLUTE BASOPHIL COUNT 0.1 /CUMM (0.0-0.2); ABSOLUTE EOSINOPHIL COUNT 0.4 /CUMM (0.0-0.7); ABSOLUTE GRANULOCYTE CT 8.7 /CUMM (1.4-6.5); ABSOLUTE LYMPH COUNT 1.1 /CUMM (1.2-3.4); ABSOLUTE MONOCYTE COUNT 0.8 /CUMM (0.10-0.60); BASOPHIL % 0.5 % (0.0-2.0); GRANULOCYTE % 78.9 % (42.2-75.2); HEMATOCRIT 21.9 % (37-47); MEAN CORPUSCULAR HGB 28.9 PG (27.0-31.0); MEAN CORPUSCULAR HGB CONC 32.7 G/DL (33.0-37.0); MEAN CORPUSCULAR VOLUME 88.4 FL (81.0-99.0); PLATELET COUNT 299 /CUMM (130-400); RBC DISTRIBUTION WIDTH 15.7 % (11.5-14.5); RED BLOOD CELL CT 2.48 /CUMM (4.20-5.40); WHITE BLOOD CELL COUNT 11.1 /CUMM (4.8-10.8)
--- NOTE | 2017-04-30 08:29 | PN- Housestaff ---
Assessment/Plan Assessment: Patient is a 76 y/o F with PMHx of uncontrolled HTN, HLD, T2DM, chronic anemia, CKD stage III, chronic venous insufficiency and 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 She is being managed for intractable back pain and acute on chronic renal insufficiency. Acute hypoxemic respiratory failure Likely secondary to volume overload secondary to blood transfusion or worsening of pneumonia In order to rule out aspiration we will get a swallow evaluation Continue with the same antibiotics for now Will obtain a stat chest x-ray to rule out volume overload Patient had a set of troponins and EKG to rule out ACS overnight Taper oxygen as tolerated Community-acquired pneumonia Patient's oxygen requirement increased from baseline Although patient remained afebrile yesterday but did spike temperature of 100.8 around 2 PM yesterday and a MAXIMUM TEMPERATURE of 101. Patient remained afebrile overnight CXR showed Right upper lobe lung field opacity concerning for developing infiltrate and or atelectasis. WBC 11.3---> 12.8 Patient was pancultured with cultures, lower respiratory cultures and urine culture Patient was started on IV ceftriaxone and azithromycin TRC nebs Intractable Back Pain and Gait Instability after mechanical fall at home. Patient denied hitting her head after a fall. No acute fracture noted on lumbar X-ray (h/o old L1 fx) CT and MRI of lumbar spine show no acute fractures, but showed degenerative changes, spondylosis and foraminal canal narrowing PT recommend rehab placement Will follow-up with physical therapy to reassess if pain is improved tomorrow On Lidocaine patch for back pain daily Continue IV tylenol and PO Oxycodone for pain Acute on Chronic Renal Failure Nephrology following Patient appears less dry today. Encouraged her to drink liberal oral fluids Continue to hold Lasix today as her creatinine is 3 this morning (Baseline around 2.3) Contiunue spironolactone today Re-assess renal function tomorrow morning with [facility] Nephro follow-up. No IV fluids per Nephrology Given patient's history of MGUS, and now in acute on chronic renal failure with intractable back pain, we are concerned for transformation of her MGUS into Myeloma Awaiting serum free light chains (quantification) as requested by nephrology and [facility], IPEP. Acute and chronic anemia Multifactorial in origin, anemia of chronic disease loss iron deficiency anemia indicated increased RDW Patient did have a recent (03/25) colonoscopy and polypectomies No history of blood per rectum. Suspect large component of her anemia is due to renal failure. GI consult (Dr. Souza) appreciated. Hemoglobin today at 7.9 after 2 blood transfusions during the course of admission Continue iron supplementation Heme Onc Consult NITHIN on CPAP Patient uses CPAP at night at home and this may be contributing to her low O2 sats overnight She was counselled to tell her son to bring her CPAP machine from home so she can use it in hospital HTN Continue Bystolic , Hydralazine, Amlodipine, losartan (Olmesartan equivalent). Continue spironolactone CAD Continue Isosorbide/ASA. Hyperlipidemia Continue Statin. DVT/Prophylaxis: mechanical Patient is full code Patient is on pain management Patient is on CHF diet
--- NOTE | 2017-04-30 08:30 | PN- Housestaff ---
LASHONDA SANDOVAL MD,[facility] 04/30/17 0830: Subjective Follow-up For: Acute hypoxemic respiratory failure Community-acquired pneumonia Status post mechanical fall Acute Back pain Acute kidney injury on chronic kidney disease Acute on chronic anemia Review of Systems Constitutional: Denies: chills, fever. Cardiovascular: Denies: chest pain, palpitations. Respiratory: Denies: cough, short of breath. Gastrointestinal: Denies: abdominal pain, nausea, vomiting. Genitourinary: Denies: discharge. Objective Last 24 Hrs of Vital Signs/I&O Vital Signs Date Time Temp Pulse Resp B/P B/P Pulse O2 O2 Flow FiO2 Mean Ox Delivery Rate 04/30 0819 90 Nasal 50% Cannula 04/30 06 98.3 80 24 130/72 91 Nasal Cannula 04/29 2221 98.9 76 20 142/70 93 Nasal Cannula 04/29 2215 91 Nasal 50% Cannula 04/29 2034 76 142/70 04/29 1935 95 Nasal 55% Cannula 04/29 1658 148/92 04/29 1600 Nasal Cannula 04/29 1600 95 Nasal 55% Cannula 04/29 1535 Room Air 04/29 1442 98.8 82 20 144/70 95 Nasal 50% Cannula 04/29 1400 97.3 82 22 152/90 04/29 1212 89 Venti Mask 45% 04/29 0924 152/94 04/29 0923 152/94 04/29 0923 152/94 04/29 0923 152/94 04/29 0923 152/94 Intake & Output 04/30 1600 04/30 0800 04/30 0000 Intake Total 120 780 Output Total 700 950 Balance -580 -170 Intake, IV 0 280 Intake, Oral 120 500 Number 0 Bowel Movements Output, Urine 700 950 Physical Exam General Appearance: Alert, Oriented X3, Cooperative, Mild Distress HEENT: Atraumatic Neck: Supple Cardiovascular: Regular Rate, Normal S1, Normal S2 Lungs: DECREASED AIR ENTRY AT LUNG BASES, RIGHT LUNG OCCASIONAL CRACKLES Abdomen: Normal Bowel Sounds, Soft, No Tenderness Neurological: Normal Speech, Normal Tone, Sensation Intact Extremities: TRACE BILATERAL LOWER EXTREMITY EDEMA Current Medications: Current Medications Sig/Duong Start time Last Medication Dose Route Stop Time Status Admin Acetaminophen 975 MG Q8P PRN 04/25 1100 AC 04/29 PO 0257 Acetaminophen 1,000 MG Q6P PRN 04/24 1045 AC 04/24 N/A 1 UNIT IV 1820 Albuterol Sulfate 3 ML BID 04/28 1315 AC 04/30 INH 0811 Amlodipine Besylate 5 MG DAILY 04/24 1142 04/29 PO 0923 Atorvastatin Calcium 40 MG 1700 04/24 1700 04/29 PO 1658 Azithromycin 500 MG DAILY 04/27 1515 04/29 Sodium Chloride 250 ML IV 0923 Ceftriaxone Sodium 1,000 MG DAILY 04/27 1515 AC 04/29 IV 0922 Doxazosin Mesylate 1 MG DAILY 04/24 1245 04/29 PO 0923 Epoetin Ld 20,000 UNITS Q336 04/29 1700 04/29 SC 1947 Famotidine 20 MG Q48 04/27 1000 AC 04/29 PO 0923 Ferrous Sulfate 325 MG DAILY 04/24 1143 04/29 PO 0923 Furosemide 80 MG ONCE ONE 04/29 1100 DC 04/29 IV 04/29 1101 1122 Hydralazine HCl 100 MG TID 04/24 1600 04/29 PO 2034 Isosorbide 60 MG DAILY 04/24 1144 04/29 Mononitrate PO 0923 Lidocaine 1 PAT DAILY 04/26 1015 04/27 EXT 1020 Lidocaine 1 PAT DAILY 04/25 1030 04/29 EXT 0924 Losartan Potassium 50 MG DAILY 04/24 1237 04/29 PO 0923 Morphine Sulfate 1 MG Q4P PRN 04/24 0930 04/28 IV 0615 Nebivolol 5 MG DAILY 04/24 1144 04/29 PO 0923 Oxycodone HCl 5 MG Q6P PRN 04/24 0930 04/30 PO 0021 Polyethylene Glycol 17 GM DAILY 04/28 1039 04/29 PO 0924 Potassium Chloride 10 MEQ DAILY 04/24 1144 04/29 PO 0923 Senna/Docusate Sodium 1 TAB BID 04/28 1039 04/29 PO 2034 Spironolactone 12.5 MG DAILY 04/24 1145 MS 04/29 PO 0924 Vancomycin HCl 1,500 MG ONCE ONE 04/29 1600 MS 04/29 Sodium Chloride 250 ML IV 04/29 1759 1924 Last 24 Hrs of Lab/Ray Results Last 24 Hrs of Labs/Mics: Laboratory Tests 04/30/17 0610: Anion Gap 10, Estimated GFR 15 L, BUN/Creatinine Ratio 17.0, CBC w Diff Pending , WBC Pending, RBC Pending, Hgb Pending, Hct Pending, MCV Pending, MCH Pending, RDW Pending, Plt Count Pending, MPV Pending, PUBS MCHC Pending 04/29/17 1200: pH 7.36, pCO2 41, pO2 72 L, HCO3 22, ABG O2 Sat (Measured) 93.0 L, Carboxyhemoglobin 0.3 L, O2 Concentration % 45%, O2 Delivery Method VM, Phlebotomy Draw Site LEFT RADIAL Microbiology 04/29 1545 URINE ROUT: Legionella Antigen - COMP 04/29 1545 URINE ROUT: Streptococcus pneumoniae Antigen (M - COMP 04/29 1458 UPPER RESP: Surveillance Culture - COLB Lines/Diet/Fluids Lines: peripheral lines Restraints: none Assessment/Plan Assessment: Patient is a 76 y/o F with PMHx of uncontrolled HTN, HLD, T2DM, chronic anemia, CKD stage III, chronic venous insufficiency and 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 She is being managed for intractable back pain and acute on chronic renal insufficiency. Acute hypoxemic respiratory failure Likely secondary to volume overload secondary to blood transfusion or worsening of pneumonia swallow evaluation negative for aspiration Continue with the current antibiotics for now Will obtain a stat chest x-ray to rule out worsening of pneumonia Patient had a set of troponins and EKG to rule out ACS Patient currently on high flow oxygen, Taper oxygen as tolerated Multilobar Community-acquired pneumonia Patient's oxygen requirement increased from baseline Patient remained afebrile overnight CXR showed Right upper lobe lung field opacity concerning for developing infiltrate and or atelectasis. WBC 11.3---> 12.8 Patient was pancultured with cultures, lower respiratory cultures and urine culture Legionella and strep antigen negative Patient on IV ceftriaxone and azithromycin TRC nebs Intractable Back Pain and Gait Instability after mechanical fall at home. Patient denied hitting her head after a fall. No acute fracture noted on lumbar X-ray (h/o old L1 fx) CT and MRI of lumbar spine show no acute fractures, but showed degenerative changes, spondylosis and foraminal canal narrowing PT recommend rehab placement Will follow-up with physical therapy to reassess if pain is improved tomorrow On Lidocaine patch for back pain daily Continue IV tylenol and PO Oxycodone for pain Acute on Chronic Renal Failure Nephrology following Patient appears less dry today. Encouraged her to drink liberal oral fluids Continue to hold Lasix today as her creatinine is 3 this morning (Baseline around 2.3) Contiunue spironolactone today Re-assess renal function tomorrow morning with [facility] Nephro follow-up. No IV fluids per Nephrology Patient started on erythropoietin as per recommendations of nephrology Given patient's history of ? MGUS, and now in acute on chronic renal failure with intractable back pain, we are concerned for transformation of her MGUS into Myeloma Awaiting serum free light chains (quantification) as requested by nephrology and [facility], IPEP. Acute and chronic anemia Multifactorial in origin, anemia of chronic disease loss iron deficiency anemia indicated increased RDW Patient did have a recent (03/25) colonoscopy and polypectomies No history of blood per rectum. Suspect large component of her anemia is due to renal failure. GI consult (Dr. Souza) appreciated. Hemoglobin today at 7.9 after 2 blood transfusions during the course of admission Continue iron supplementation Heme Onc Consult NITHIN on CPAP Patient uses CPAP at night at home and this may be contributing to her low O2 sats overnight She was counselled to tell her son to bring her CPAP machine from home so she can use it in hospital HTN Continue Bystolic , Hydralazine, Amlodipine, losartan (Olmesartan equivalent). Continue spironolactone CAD Continue Isosorbide/ASA. Hyperlipidemia Continue Statin. DVT/Prophylaxis: mechanical Patient is full code Patient is on pain management Patient is on CHF diet Problem List: 1. CRI (chronic renal insufficiency) 2. Anemia 3. Fall at home 4. Community acquired pneumonia 5. Acute hypoxemic respiratory failure Pain Ratin Pain Location: Back pain Pain Goal: Pain 4 or less Pain Plan: CONTINUE CURRENT PAIN MANAGEMENT Tomorrow's Labs & Rationales: CBC for leukocytosis BEP for electrolyte abnormalities DVT/Prophylaxis: pharmacological BENNY POWELL 04/30/17 0915: Attending MD Review Statement Attending Statement Attending MD Statement: examined this patient, discuss w/resident/PA/COWLMAN, agreed w/resident/PA/COWLMAN, discussed with family, reviewed EMR data (avail), discussed with nursing, discussed with case mgmt, reviewed images, amended to note Attending Assessment/Plan: ASSESSMENT 1. S/p Mechanical fall 2. acute back pain 3. PATO on CKD 4. Acute on chronic anemia 5. Anemia multifactorial (AOCD+ component of fe defeciency) 6. hypertension 7. HFpEF 65% 8. r/o multiple myeloma ?MGUS 9. Community acquired pneumonia 10 Acute hypoxemic respiratory failure. (patient received transfusion). PLAN Admit to inpatient medical services c/w i/v abx, oxygen supplementation, f/u blood cultures negative so far, sputum. Pulmonary f/u. nephrology following diuretics restarted lasix use as per nephro, bp managmenet as per nephro, ARB use as per nephro, Cr 3.0 Anemia s/p 2 unit of PRBC, cont supportive care, Fe tabs, hem appreciate. GI F/ u. cbc EVENING pain control, optimising pain meds. bp controlled, monitor cr. PT consult STR, fall precautions gi/dvt prophyalxis full code d/c planning anticipated, d/c if nephro ok.
--- NOTE | 2017-04-30 11:39 | PN- Pulmonary ---
Subjective HPI/Critical Care Issues: Doing well afebrile fatigue Review of Systems Constitutional: Denies: chills, fever. Cardiovascular: Denies: chest pain, palpitations. Respiratory: Denies: cough, short of breath. Gastrointestinal: Denies: abdominal pain, nausea, vomiting. Genitourinary: Denies: discharge Objective Current Medications: Current Medications Sig/Duong Start time Last Medication Dose Route Stop Time Status Admin Acetaminophen 975 MG Q8P PRN 04/25 1100 AC 04/29 PO 0257 Acetaminophen 1,000 MG Q6P PRN 04/24 1045 AC 04/24 N/A 1 UNIT IV 1820 Albuterol Sulfate 3 ML BID 04/28 1315 AC 04/30 INH 0811 Amlodipine Besylate 5 MG DAILY 04/24 1142 AC 04/29 PO 0923 Atorvastatin Calcium 40 MG 1700 04/24 1700 AC 04/29 PO 1658 Azithromycin 500 MG DAILY 04/27 1515 AC 04/29 Sodium Chloride 250 ML IV 0923 Ceftriaxone Sodium 1,000 MG DAILY 04/27 1515 AC 04/29 IV 0922 Doxazosin Mesylate 1 MG DAILY 04/24 1245 AC 04/29 PO 0923 Epoetin Ld 20,000 UNITS Q336 04/29 1700 AC 04/29 SC 1947 Famotidine 20 MG Q48 04/27 1000 AC 04/29 PO 0923 Ferrous Sulfate 325 MG DAILY 04/24 1143 AC 04/29 PO 0923 Furosemide 40 MG ONE ONE 04/30 0930 DC PO 04/30 0931 Hydralazine HCl 100 MG TID 04/24 1600 AC 04/29 PO 2034 Isosorbide 60 MG DAILY 04/24 1144 AC 04/29 Mononitrate PO 0923 Lidocaine 1 PAT DAILY 04/26 1015 AC 04/27 EXT 1020 Lidocaine 1 PAT DAILY 04/25 1030 AC 04/29 EXT 0924 Losartan Potassium 50 MG DAILY 04/24 1237 AC 04/29 PO 0923 Morphine Sulfate 1 MG Q4P PRN 04/24 0930 AC 04/28 IV 0615 Nebivolol 5 MG DAILY 04/24 1144 AC 04/29 PO 0923 Oxycodone HCl 5 MG Q6P PRN 04/24 0930 AC 04/30 PO 0021 Polyethylene Glycol 17 GM DAILY 04/28 1039 AC 04/29 PO 0924 Potassium Chloride 10 MEQ DAILY 04/24 1144 AC 04/29 PO 922 Senna/Docusate Sodium 1 TAB BID 04/28 1039 AC 04/29 PO 2033 Spironolactone 12.5 MG DAILY 04/24 1145 DC 04/29 PO 09 Vancomycin HCl 1,500 MG ONCE ONE 04/29 1600 DC 04/29 Sodium Chloride 250 ML IV 04/29 1759 1924 Vital Signs & I&O Last 24 Hrs of Vitals and I&O: Vital Signs Date Time Temp Pulse Resp B/P B/P Pulse O2 O2 Flow FiO2 Mean Ox Delivery Rate 04/30 0819 90 Nasal 50% Cannula 04/30 06 98.3 80 24 130/72 91 Nasal Cannula 04/29 222 98.9 76 20 142/70 93 Nasal Cannula 04/29 2215 91 Nasal 50% Cannula 04/29 2034 76 142/70 04/29 1935 95 Nasal 55% Cannula 04/29 1658 148/92 04/29 1600 Nasal Cannula 04/29 1600 95 Nasal 55% Cannula 04/29 1535 Room Air 04/29 1442 98.8 82 20 144/70 95 Nasal 50% Cannula 04/29 1400 97.3 82 22 152/90 04/29 1212 89 Venti Mask 45% Intake & Output 04/30 1600 04/30 0800 04/30 0000 Intake Total 120 780 Output Total 700 950 Balance -580 -170 Intake, IV 0 280 Intake, Oral 120 500 Number 0 Bowel Movements Output, Urine 700 950 Patient 233 lb Weight Laboratory Tests 04/30 04/29 0610 1200 Blood Gas pH (7.35 - 7.45 PH) 7.36 pCO2 (35 - 45 TORR) 41 pO2 (80 - 100 TORR) 72 L HCO3 (21 - 28 MEQ/L) 22 ABG O2 Sat (Measured) (>96.0 %) 93.0 L Carboxyhemoglobin (1.5 - 5.0 %) 0.3 L O2 Concentration % 45% O2 Delivery Method VM Chemistry Sodium (137 - 145 mmol/L) 142 Potassium (3.5 - 5.1 mmol/L) 4.3 Chloride (98 - 107 mmol/L) 107 Carbon Dioxide (22 - 30 mmol/L) 24 Anion Gap (5 - 16) 10 BUN (7 - 17 mg/dL) 51 H Creatinine (0.5 - 1.0 mg/dL) 3.0 H Estimated GFR (>60 ml/min) 15 L BUN/Creatinine Ratio (7 - 25 %) 17.0 Hematology CBC w Diff NO MAN DIFF REQ WBC (4.8 - 10.8 /CUMM) 11.1 H RBC (4.20 - 5.40 /CUMM) 2.48 L Hgb (12.0 - 16.0 G/DL) 7.2 *L Hct (37 - 47 %) 21.9 L MCV (81.0 - 99.0 FL) 88.4 MCH (27.0 - 31.0 PG) 28.9 RDW (11.5 - 14.5 %) 15.7 H Plt Count (130 - 400 /CUMM) 299 MPV (7.4 - 10.4 FL) 9.0 Gran % (42.2 - 75.2 %) 78.9 H Lymphocytes % (20.5 - 51.1 %) 9.6 L Monocytes % (1.7 - 9.3 %) 7.0 Eosinophils % (0 - 5 %) 4.0 Basophils % (0.0 - 2.0 %) 0.5 Absolute Granulocytes (1.4 - 6.5 /CUMM) 8.7 H Absolute Lymphocytes (1.2 - 3.4 /CUMM) 1.1 L Absolute Monocytes (0.10 - 0.60 /CUMM) 0.8 H Absolute Eosinophils (0.0 - 0.7 /CUMM) 0.4 Absolute Basophils (0.0 - 0.2 /CUMM) 0.1 PUBS MCHC (33.0 - 37.0 G/DL) 32.7 L Miscellaneous Phlebotomy Draw Site LEFT RADIAL 04/29 04/29 04/29 0716 0716 0040 Chemistry Sodium (137 - 145 mmol/L) 142 Potassium (3.5 - 5.1 mmol/L) 3.9 Chloride (98 - 107 mmol/L) 107 Carbon Dioxide (22 - 30 mmol/L) 25 Anion Gap (5 - 16) 11 BUN (7 - 17 mg/dL) 48 H Creatinine (0.5 - 1.0 mg/dL) 2.9 H Estimated GFR (>60 ml/min) 16 L BUN/Creatinine Ratio (7 - 25 %) 16.6 Troponin I (< 0.11 ng/ml) Cancelled 0.06 0.07 Hematology CBC w Diff NO MAN DIFF REQ WBC (4.8 - 10.8 /CUMM) 12.8 H RBC (4.20 - 5.40 /CUMM) 2.72 L Hgb (12.0 - 16.0 G/DL) 7.9 L Hct (37 - 47 %) 24.1 L MCV (81.0 - 99.0 FL) 88.6 MCH (27.0 - 31.0 PG) 29.1 RDW (11.5 - 14.5 %) 15.4 H Plt Count (130 - 400 /CUMM) 322 MPV (7.4 - 10.4 FL) 8.9 Gran % (42.2 - 75.2 %) 82.8 H Lymphocytes % (20.5 - 51.1 %) 7.7 L Monocytes % (1.7 - 9.3 %) 6.6 Eosinophils % (0 - 5 %) 2.5 Basophils % (0.0 - 2.0 %) 0.4 Absolute Granulocytes (1.4 - 6.5 /CUMM) 10.6 H Absolute Lymphocytes (1.2 - 3.4 /CUMM) 1.0 L Absolute Monocytes (0.10 - 0.60 /CUMM) 0.8 H Absolute Eosinophils (0.0 - 0.7 /CUMM) 0.3 Absolute Basophils (0.0 - 0.2 /CUMM) 0.1 PUBS MCHC (33.0 - 37.0 G/DL) 32.9 L 04/28 2040 Hematology CBC w Diff NO MAN DIFF REQ WBC (4.8 - 10.8 /CUMM) 12.3 H RBC (4.20 - 5.40 /CUMM) 2.58 L Hgb (12.0 - 16.0 G/DL) 7.5 L Hct (37 - 47 %) 22.9 L MCV (81.0 - 99.0 FL) 88.7 MCH (27.0 - 31.0 PG) 29.0 RDW (11.5 - 14.5 %) 15.6 H Plt Count (130 - 400 /CUMM) 285 MPV (7.4 - 10.4 FL) 9.3 Gran % (42.2 - 75.2 %) 79.5 H Lymphocytes % (20.5 - 51.1 %) 10.5 L Monocytes % (1.7 - 9.3 %) 8.2 Eosinophils % (0 - 5 %) 1.7 Basophils % (0.0 - 2.0 %) 0.1 Absolute Granulocytes (1.4 - 6.5 /CUMM) 9.8 H Absolute Lymphocytes (1.2 - 3.4 /CUMM) 1.3 Absolute Monocytes (0.10 - 0.60 /CUMM) 1.0 H Absolute Eosinophils (0.0 - 0.7 /CUMM) 0.2 Absolute Basophils (0.0 - 0.2 /CUMM) 0 PUBS MCHC (33.0 - 37.0 G/DL) 32.7 L Microbiology Date/Time Procedure - Status Source Growth 04/29 1545 Legionella Antigen - COMP URINE ROUT 04/29 1545 Streptococcus pneumoniae Antigen (M - COMP URINE ROUT 04/29 1458 Surveillance Culture - COLB UPPER RESP 04/27 1600 Urine Culture - COMP URINE ROUT 04/27 1545 Blood Culture - RES BLOOD 04/27 1535 Blood Culture - RES BLOOD 04/27 1340 Respiratory Culture - CAN LOWER RESP Cancelled: SPECIMEN NOT RECEIVED IN LABORATORY 04/27 1340 Gram Stain - CAN LOWER RESP Cancelled: SPECIMEN NOT RECEIVED IN LABORATORY Impression/Plan Impression/Plan Impression/Plan: CT chest IMPRESSION: 1. Right upper and right lower lobe consolidation consistent with pneumonia. 2. No evidence of a discrete pulmonary mass or adenopathy. 3. Patent tracheobronchial tree. DICTATED BY: CHEYANNE CHANCE MD DATE/TIME DICTATED:04/28/17 / 2 Physical Exam General Appearance: Alert, Oriented X3, Cooperative, Mild Distress HEENT: Atraumatic Neck: Supple Cardiovascular: Regular Rate, Normal S1, Normal S2 Lungs: OVERALL DECREASED AIR ENTRY AT THE LUNG BASES,. wheezing noted bilaterally Abdomen: Normal Bowel Sounds, Soft, No Tenderness Neurological: Normal Speech, Normal Tone, Sensation Intact Extremities: BILATERAL TRACE EXTREMITY EDEMA IMPRESSION This is a 76-year-old lady with hypertension, hyperlipidemia, type 2 diabetes, chronic significant anemia, worsening chronic kidney diseasestage III versus 4, chronic venous insufficiency, diastolic dysfunction with previous heart failure, recurrent mechanical fall at home, probable neuropathy, recent colonoscopy with no malignancy with multiple polyps removed, significant lumbosacral degeneration with chronic L1 fracture, chronic low back pain, normocytic anemia, chronic lower extremity edema, now has * Improving Acute hypoxemic respiratory failure related to significant pneumonia multi lobar in the right side with pleurisy now complicated by bilateral pulmonary infiltrates after she has received blood transfusion suggestive of acute lung injury probably from transfusion versus worsening pneumonia * Significant community-acquired pneumonia in a lady with previous history of C. difficile with previous history of some some dysfunction of her immunoglobulins. No previous history of Pseudomonas. High risk for decompensation * Morbid obesity with signs and symptoms suggestive of obstructive sleep apnea but patient is not hypercarbic * Anemia of chronic disease which is now made worse by renal failure followed by hematology at this time * Significant back pain and gait instability with recent fall aswell rule out significant neuropathy probably from diabetes, compounded by significant degenerative joint and disc disease in the lumbosacral area with L5 nerve root involvement in the left with right foraminal stenosis. * Pleuritic chest pain due to pleurisy * L1 fracture which appears to be chronic * Aneurysmal dilatation of aorta noted in the MRI * Hypertension, hyperlipidemia, diabetes relatively stable at this time * Chronic venous insufficiency with lower extremity edema * Significant diastolic dysfunction of the heart with previous history of heart failure probably now fluid overloaded after blood transfusion RECOMMENDATION * Switch her to high flow oxygen * Continue intravenous antibiotics * Watch potassium * Patient would need neurology evaluation the future as she has had recurrent fall to rule out peripheral neuropathy etc. * Echocardiogram * Adequate sugar management * Transfuse only if it's absolutely necessary * Watch for C. difficile * We will hold steroids for now as she does have pleural reaction etc. * Strict I's and O's * Repeat chest x-ray in 1-2 days evaluate and see whether she has had any pleural reaction versus pleural effusion
--- NOTE | 2017-04-30 12:28 | ECHOCARDIOGRAM REPORT ---
GREGOR ALAS Age: 76 : 1940 Gender: F Exam Date: 04/30/2017 10:29 Exam Location: 2 [address] A Ht (in): 60 Wt (lb): 234 BSA: 2.19 BP: 144 / 76 Ordering Physician: CYNTHIA CARR MD Referring Physician: CYNTHIA CARR MD Technologist: Davion Edwards [facility] Room Number: 237-1 Indications: PULMONARY HYPERTENSION Rhythm: Technical Quality: FINDINGS Left Ventricle Normal left ventricular wall motion. Normal left ventricular ejection fraction visually estimated at 65 %. Abnormal relaxation filling pattern of the left ventricle for age (stage 1 diastolic dysfunction). Left ventricular wall thickness mildly increased. Right Ventricle Normal right ventricular global systolic function. Right Atrium Normal right atrial size. Left Atrium Mild left atrial dilatation. Mitral Valve Moderate mitral annular calcification. Mild mitral regurgitation. Aortic Valve Diffuse thickening (sclerosis) of the aortic valve cusps without reduced excursion. Mild aortic stenosis. Tricuspid Valve Structurally normal tricuspid valve. Mild tricuspid regurgitation. Right ventricular systolic pressure estimated at 44 mmHg. Pulmonic Valve Structurally normal pulmonic valve. Trace pulmonic regurgitation. Pericardium No pericardial effusion. Great Vessels Aortic arch normal. CONCLUSIONS Normal left ventricular ejection fraction visually estimated at 65 %. Abnormal relaxation filling pattern of the left ventricle for age (stage 1 diastolic dysfunction). Left ventricular wall thickness mildly increased. Mild left atrial dilatation. Moderate mitral annular calcification. Mild mitral regurgitation. Diffuse thickening (sclerosis) of the aortic valve cusps without reduced excursion. Mild aortic stenosis. Mild tricuspid regurgitation. Right ventricular systolic pressure estimated at 44 mmHg. Francisco Garibay M.D. (Electronically Signed) Final Date: 30 April 2017 12:27 MEASUREMENTS (Male / Female) Normal Values 2D ECHO LV Diastolic Diameter PLAX 5.1 cm 4.2 - 5.9 / 3.9 - 5.3 cm LV Systolic Diameter PLAX 2.8 cm 2.1 - 4.0 cm LV Fractional Shortening PLAX 45.1 % 25 - 46 % LV Ejection Fraction 2D Teich 76.1 % IVS Diastolic Thickness 1.3 cm LVPW Diastolic Thickness 1.3 cm LV Relative Wall Thickness 0.5 RV Internal Dim ED PLAX 3.5 cm 1.9 - 3.8 cm LVOT Diameter 1.9 cm Aortic Root Diameter 2.3 cm LA Systolic Diameter LX 4.1 cm 3.0 - 4.0 / 2.7 - 3.8 cm LA Volume 69.0 cm 18 - 58 / 22 - 52 cm Ascending Aorta Diameter 3.6 cm DOPPLER AV Peak Velocity 205.0 cm/s AV Peak Gradient 16.8 mmHg AV Mean Velocity 137.0 cm/s AV Mean Gradient 9.0 mmHg AV Velocity Time Integral 45.6 cm LVOT Peak Velocity 134.0 cm/s LVOT Peak Gradient 7.2 mmHg LVOT Mean Velocity 82.2 cm/s LVOT Mean Gradient 3.0 mmHg LVOT Velocity Time Integral 31.7 cm LVOT Stroke Volume 89.9 cm AV Area Cont Eq vti 2.0 cm AV Area Cont Eq pk 1.9 cm MV Peak Velocity 176.0 cm/s MV Peak Gradient 12.4 mmHg MV Mean Velocity 118.0 cm/s MV Mean Gradient 7.0 mmHg Mitral E Point Velocity 156.0 cm/s Mitral A Point Velocity 165.0 cm/s Mitral E to A Ratio 0.9 MV PHT Velocity 182.0 cm/s MV Deceleration Norman 920.0 cm/s MV Pressure Half Time 59.3 ms MV Area PHT 3.7 cm MV Deceleration Time 215.0 ms TR Peak Velocity 314.0 cm/s TR Peak Gradient 39.4 mmHg Right Atrial Pressure 10.0 mmHg Pulmonary Artery Systolic Pressu 49.4 mmHg Right Ventricular Systolic Press 49.4 mmHg PV Peak Velocity 125.0 cm/s PV Peak Gradient 6.3 mmHg PV Mean Velocity 90.2 cm/s PV Mean Gradient 4.0 mmHg PV Velocity Time Integral 31.1 cm LV E' Lateral Velocity 7.1 cm/s Mitral E to LV E' Lateral Ratio 21.9 LV E' Septal Velocity 6.5 cm/s Mitral E to LV E' Septal Ratio 23.9
--- NOTE | 2017-04-30 13:07 | PN- Hematology ---
Subjective Subjective: She continues to have back pain. She has not been able to ambulate much with the back pain. She reports no bleeding issues. Review of Systems: Constitutional: Denies: chills, fever. Cardiovascular: Denies: chest pain. Respiratory: Reports: short of breath. Denies: cough. Gastrointestinal: Denies: abdominal pain. Genitourinary: Denies: dysuria. Musculoskeletal: Reports: back pain. Hematologic/Endocrine: Denies: bruising, bleeding. All Other Systems: Reviewed and Negative Objective Vital Signs and I&Os Vital Signs Date Time Temp Pulse Resp B/P B/P Pulse O2 O2 Flow FiO2 Mean Ox Delivery Rate 04/30 1220 92 Nasal 50% Cannula 04/30 1118 80 130/72 04/30 1106 80 130/72 04/30 1105 80 130/72 04/30 1102 80 130/72 04/30 1101 80 130/72 04/30 0819 90 Nasal 50% Cannula 04/30 0800 91 Nasal Cannula 04/30 0627 98.3 80 24 130/72 91 Nasal Cannula 04/29 2221 98.9 76 20 142/70 93 Nasal Cannula 04/29 2215 91 Nasal 50% Cannula 04/29 2034 76 142/70 04/29 1935 95 Nasal 55% Cannula 04/29 1658 148/92 04/29 1600 Nasal Cannula 04/29 1600 95 Nasal 55% Cannula 04/29 1535 Room Air 04/29 1442 98.8 82 20 144/70 95 Nasal 50% Cannula 04/29 1400 97.3 82 22 152/90 Intake & Output 04/30 1600 04/30 0800 04/30 0000 04/29 1600 04/29 0800 04/29 0000 Intake Total 120 780 180 160 690 Output Total 700 950 400 Balance -580 -170 -220 160 690 Intake, IV 0 280 450 Intake, Oral 120 500 180 160 240 Number 0 0 Bowel Movements Output, Urine 700 950 400 Patient 105.687 kg Weight Physical Exam: General Appearance: no apparent distress, comfortable, obese Respiratory: chest non-tender, quiet respiration, decreased breath sounds (at bases) Cardiovascular: regular rate/rhythm Gastrointestinal: normal bowel sounds, soft, non-tender, obese Extremities: pedal edema (1+) Lymphatic: no anterior cervical farzana Current Medications: Current Medications Sig/Duong Start time Last Medication Dose Route Stop Time Status Admin Acetaminophen 975 MG Q8P PRN 06/17 1100 AC 04/29 PO 0257 Acetaminophen 1,000 MG Q6P PRN 04/24 1045 AC 04/24 N/A 1 UNIT IV 1820 Albuterol Sulfate 3 ML BID 04/28 1315 AC 04/30 INH 0811 Amlodipine Besylate 5 MG DAILY 04/24 1142 AC 04/30 PO 1105 Atorvastatin Calcium 40 MG 1700 04/24 1700 AC 04/29 PO 1658 Azithromycin 500 MG DAILY 04/27 1515 AC 04/30 Sodium Chloride 250 ML IV 1115 Ceftriaxone Sodium 1,000 MG DAILY 04/27 1515 AC 04/30 IV 1115 Doxazosin Mesylate 1 MG DAILY 04/24 1245 AC 04/30 PO 1102 Epoetin Ld 20,000 UNITS Q336 04/29 1700 04/29 SC 1947 Famotidine 20 MG Q48 04/27 1000 AC 04/29 PO 0923 Ferrous Sulfate 325 MG DAILY 04/24 1143 AC 04/30 PO 1103 Furosemide 40 MG ONE ONE 04/30 0930 DC 04/30 PO 04/30 0931 1100 Hydralazine HCl 100 MG TID 04/24 1600 AC 04/30 PO 1101 Isosorbide 60 MG DAILY 04/24 1144 AC 04/30 Mononitrate PO 1118 Lidocaine 1 PAT DAILY 04/26 1015 AC 04/30 EXT 1108 Lidocaine 1 PAT DAILY 04/25 1030 04/29 EXT 0924 Losartan Potassium 50 MG DAILY 04/24 1237 AC 04/30 PO 1106 Morphine Sulfate 1 MG Q4P PRN 04/24 0930 AC 04/28 IV 0615 Nebivolol 5 MG DAILY 04/24 1144 AC 04/30 PO 1102 Oxycodone HCl 5 MG Q6P PRN 04/24 0930 04/30 PO 0021 Polyethylene Glycol 17 GM DAILY 04/28 1039 AC 04/30 PO 1057 Potassium Chloride 10 MEQ DAILY 04/24 1144 AC 04/30 PO 1103 Senna/Docusate Sodium 1 TAB BID 04/28 1039 04/30 PO 1117 Spironolactone 12.5 MG DAILY 04/24 1145 OR 04/29 PO 0924 Vancomycin HCl 1,500 MG ONCE ONE 04/29 1600 DC 04/29 Sodium Chloride 250 ML IV 04/29 1759 1924 Results Last 24 Hours of Lab Results: Laboratory Tests 04/30 0610 Chemistry Sodium (137 - 145 mmol/L) 142 Potassium (3.5 - 5.1 mmol/L) 4.3 Chloride (98 - 107 mmol/L) 107 Carbon Dioxide (22 - 30 mmol/L) 24 Anion Gap (5 - 16) 10 BUN (7 - 17 mg/dL) 51 H Creatinine (0.5 - 1.0 mg/dL) 3.0 H Estimated GFR (>60 ml/min) 15 L BUN/Creatinine Ratio (7 - 25 %) 17.0 Hematology CBC w Diff NO MAN DIFF REQ WBC (4.8 - 10.8 /CUMM) 11.1 H RBC (4.20 - 5.40 /CUMM) 2.48 L Hgb (12.0 - 16.0 G/DL) 7.2 *L Hct (37 - 47 %) 21.9 L MCV (81.0 - 99.0 FL) 88.4 MCH (27.0 - 31.0 PG) 28.9 RDW (11.5 - 14.5 %) 15.7 H Plt Count (130 - 400 /CUMM) 299 MPV (7.4 - 10.4 FL) 9.0 Gran % (42.2 - 75.2 %) 78.9 H Lymphocytes % (20.5 - 51.1 %) 9.6 L Monocytes % (1.7 - 9.3 %) 7.0 Eosinophils % (0 - 5 %) 4.0 Basophils % (0.0 - 2.0 %) 0.5 Absolute Granulocytes (1.4 - 6.5 /CUMM) 8.7 H Absolute Lymphocytes (1.2 - 3.4 /CUMM) 1.1 L Absolute Monocytes (0.10 - 0.60 /CUMM) 0.8 H Absolute Eosinophils (0.0 - 0.7 /CUMM) 0.4 Absolute Basophils (0.0 - 0.2 /CUMM) 0.1 PUBS MCHC (33.0 - 37.0 G/DL) 32.7 L Assessment/Plan Assessment/Recommendations: Ms. 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 On admission, she had back pain and worsening anemia and renal dysfunction. Her creatinine has been around 1.9 to 2.4 for the last few years. On presentation, her creatinine has increased to 3.0. Her anemia has been running from 7.3 to 10.7 for at least 5 years. MGUS diagnosis is unclear. She has had normal SPEP and UPEP. Her calcium is normal. She has no noted protein gap. Serum free light chains ratio is normal. It is unlikely that she has MGUS. SPEP and UPEP are still pending. Her hemoglobin has decreased once again. Renal function is stable. She continues to have back pain. She may need TRACEY to support her anemia with anemia of chronic renal disease. She is now on antibiotics (azithromycin and ceftriaxone) of CAP. Recommendations: 1. Follow up on SPEP, immunofixation, and UPEP 2. Consider 24-hour urine evaluation (UPEP 24-hour) 3. Consider TRACEY therapy 4. Nephrology recommendations on CKD Please call [phone] with any questions or concerns. Problem List: 1. Community acquired pneumonia 2. Acute back pain 3. Acute on chronic renal insufficiency 4. Anemia
[2017-04-30 13:59] VITALS: BP 118/70
[2017-04-30 15:58] LABS: ABSOLUTE EOSINOPHIL COUNT 0.4 /CUMM (0.0-0.7); ABSOLUTE LYMPH COUNT 0.8 /CUMM (1.2-3.4); HEMATOCRIT 22.5 % (37-47)
[2017-04-30 16:02] LABS: ABSOLUTE BASOPHIL COUNT 0 /CUMM (0.0-0.2); ABSOLUTE GRANULOCYTE CT 9.3 /CUMM (1.4-6.5); ABSOLUTE MONOCYTE COUNT 0.7 /CUMM (0.10-0.60); BASOPHIL % 0.4 % (0.0-2.0); EOSINOPHIL % 3.3 % (0-5); GRANULOCYTE % 82.8 % (42.2-75.2); MEAN CORPUSCULAR HGB 29.3 PG (27.0-31.0); MEAN CORPUSCULAR HGB CONC 33.4 G/DL (33.0-37.0); MEAN CORPUSCULAR VOLUME 87.7 FL (81.0-99.0); MEAN PLATELET VOLUME 9.1 FL (7.4-10.4); PLATELET COUNT 307 /CUMM (130-400); RBC DISTRIBUTION WIDTH 15.3 % (11.5-14.5); RED BLOOD CELL CT 2.57 /CUMM (4.20-5.40); WHITE BLOOD CELL COUNT 11.3 /CUMM (4.8-10.8)
--- NOTE | 2017-04-30 17:31 | Discharge Summary ---
Visit Information Visit Dates Admission Date: 04/27/17 Discharge Date: 05/06/17 Hospital Course Course Attending Physician: BENNY POWELL MD Primary Care Physician: VIPUL COOK MD Consulting Request: Consulting Specialty: Pulmonary Disease Hospital Course: 76-year-old female with past medical history significant for uncontrolled hypertension, hyperlipidemia, type 2 diabetes mellitus, chronic anemia, stage III chronic kidney disease, chronic venous insufficiency, heart failure with preserved ejection fraction 65% EF, stage I diastolic dysfunction, came to emergency department for chief complaint of difficulty in ambulation status post mechanical fall. Vitals in emergency department patient afebrile, no tachypnea, no tachycardia, systolic blood pressure ranging from 170-175 and diastolic pressure 78-90, oxygen saturation of 95-94% on room air. On examination, patient alert and oriented to time person and place, in moderate distress because for back pain. Regular rate, S1 and S2 audible without any murmurs, overall clear lungs, benign abdominal and neurological examination, 2+ bilateral lower extremity pitting edema with stasis dermatitis. Patient was admitted on general medicine so for the management of following problems Acute hypoxemic respiratory failure Patient's oxygen requirement during the hospitalization increased from 2 L of nasal cannula to initially 5 L and later on she was started on high flow oxygen . It was Likely secondary to volume overload secondary to blood transfusion/ possible TRALI and worsening of pneumonia. Since patient remained afebrile and white count was improving acute hypoxemic respiratory failure was most likely secondary to volume overload. Patient received 80 mg of Lasix and responded well to that. swallow evaluation negative for aspiration. Multilobar Community-acquired pneumonia Patient's oxygen requirement increased from baseline 2 days after admission. CXR showed Right upper lobe lung field opacity concerning for developing infiltrate and or atelectasis. Chest CT was also obtained which showed Right upper and right lower lobe consolidation consistent with pneumonia. There was persistent leukocytosis between the range of 11.3-13.5. Patient was pancultured with cultures, lower respiratory cultures and urine culture. Legionella and strep antigen negative.Patient was managed with IV ceftriaxone and azithromycin for 7 days which was switched to by mouth Avelox as per pulmonary recommendation. Intractable Back Pain and Gait Instability after mechanical fall at home. Patient denied hitting her head after a fall. No acute fracture noted on lumbar X-ray (h/o old L1 fx) CT and MRI of lumbar spine show no acute fractures, but showed degenerative changes, spondylosis and foraminal canal narrowing. Patient was being managed with a sickle therapy, Lidocaine patch for back pain and IV tylenol along with PO Oxycodone for pain. Acute on Chronic Renal Failure Patient's baseline is function is between 2.2 and 2.5, creatinine was 2.9-3 and therefore nephrology consult was called. As per nephrology furosemide was held during the hospitalization initially and was later restarted with a different dose of every 48hours 80 mg po lasix and every 48 hours 40 mg PO lasix with an improvement in renal function from creatinine of 3 to baseline. Nephrotoxic medications were avoided. Awaiting serum free light chains (quantification) as requested by nephrology and SPEP, IPEP. Acute and chronic anemia Multifactorial in origin, anemia of chronic disease loss iron deficiency anemia indicated increased RDW. Patient did have a recent (03/25) colonoscopy and polypectomies No blood per rectum. Patient received 2 blood transfusions during the course of admission and her H&H kept on fluctuating between 7.2 TO 8. We continued iron supplementation. Heme Onc Consult was also obtained during the hospitalization because of possible concern for MGUS/multiple myeloma. Hem hematology/and cause service was not very keen about the possibility of this diagnosis and attributed it secondary to chronic kidney disease. SPEP, immunofixation, and UPEP were ordered and the results are pending. Patient was started on erythropoietin as per nephrology recommendation. NITHIN on CPAP Patient uses CPAP at night at home and this may be contributing to her low O2 sats overnight She was counselled to tell her son to bring her CPAP machine from home so she can use it in hospital HTN Continued Bystolic , Hydralazine, Amlodipine, losartan. Spironolactone and Lasix were held temporarily and restarted later CAD Continued Isosorbide/ASA. Hyperlipidemia Statin was continued during that admission DVT/Prophylaxis: mechanical Patient was full code Patient was on pain management Patient was on CHF diet Allergies: Coded Allergies: NO KNOWN ALLERGIES (UNKNOWN 04/24/17) Disposition Summary Disposition Principal Diagnosis: Acute hypoxemic respiratory failure Community-acquired pneumonia Status post mechanical fall Acute Back pain Acute kidney injury on chronic kidney disease Acute on chronic anemia Additional Diagnosis: History of uncontrolled hypertension History of diabetes mellitus History of hyperlipidemia History of CHF with preserved ejection fraction History of CAD History of chronic anemia Discharge Disposition: SNF Discharge Instructions General Discharge Information Code Status: Full Code Patient's Diet: CHF diet Patient's Activity: As tolerated Follow-up precautions Follow-Up Instructions/Appts: Follow-up with primary care doctor in a week after discharge. Follow-up with apartment leasing agent Dr. Vang after discharge Follow-up with auto transport driver Dr. Long after discharge Follow-up with follow up rep/oncologist after discharge Medications at Discharge Discharge Medications: Stop taking the following medications: Furosemide (Furosemide) 80 MG TABLET ORAL Every Morning Qty = 30 Furosemide (Furosemide) 40 MG TABLET ORAL Every night Qty = 30 Continue taking these medications: Rosuvastatin Calcium (Crestor) 40 MG TABLET 1 Tablet ORAL DAILY Amlodipine Bes/Olmesartan Med (Reina 5-40 MG Tablet) 5 MG-40 MG TABLET 1 Tablet ORAL DAILY Aspirin (Children's Aspirin) 81 MG TAB.CHEW 1 Tablet ORAL DAILY Multivitamin (Multiple Vitamins) 1 EACH TABLET 1 Tablet ORAL DAILY [place]-3S/Dha/Epa/Fish Oil (Fish Oil 1,200 MG Softgel) 360-1,200MG CAPSULE 1 Capsule ORAL DAILY Vitamin E (Vitamin E) 200 UNIT CAPSULE 1 Capsule ORAL DAILY Ferrous Sulfate (Ferrous Sulfate) 325 MG (65 MG IRON) TABLET 1 Tablet ORAL DAILY Cholecalciferol (Vitamin D3) 1,000 UNIT TABLET 1 Tablet ORAL DAILY Nebivolol HCl (Bystolic) 5 MG TABLET 1 Tablet ORAL DAILY Qty = 30 Hydralazine HCl (Hydralazine HCl) 100 MG TABLET 1 Tablet ORAL THREE TIMES DAILY Qty = 90 Comments: Last Taken: 10/25/16 Time: 8:40 AM Spironolactone (Spironolactone) 25 MG TABLET 0.5 Tablet ORAL DAILY Qty = 30 Comments: Last Taken: 10/25/16 Time: 8:40 AM Isosorbide Mononitrate (Isosorbide Mononitrate ER) 60 MG TAB.ER.24H 1 Tablet ORAL DAILY Qty = 30 Comments: Last Taken: 10/25/16 Time: 8:40 AM Potassium Chloride (Potassium Chloride) 10 MEQ TABLET.ER 1 Tablet ORAL DAILY Qty = 30 Comments: Last Taken: 10/24/16 Time: 10:25 PM Doxazosin Mesylate (Doxazosin Mesylate) 2 MG TABLET 0.5 Tablet ORAL DAILY Qty = 90 Start taking the following new medications: Furosemide (Lasix) 40 MG TABLET 1 Tablet ORAL EVERY 48 HOURS (Every 2 days) Qty = 90 No Refills Furosemide (Lasix) 40 MG TABLET 2 Tablet ORAL EVERY 48 HOURS (Every 2 days) Qty = 90 No Refills Polyethylene Glycol 3350 (Miralax) 17 GRAM/DOSE POWDER 17 Gram ORAL DAILY Qty = 30 No Refills Sennosides/Docusate Sodium (Senna Plus Tablet) 8.6 MG-50 MG TABLET 1 Tablet ORAL TWICE DAILY Qty = 90 No Refills Lactobac Cmb #3/Fos/Pantethine (Probiotic & Acidophilus Cap) 300MM-250 CAPSULE 1 Capsule ORAL DAILY Qty = 90 No Refills Epoetin Ld (Epogen) 2,000 UNIT/ML VIAL 20,000 Units Inject into fatty tissue EVERY 2 WEEKS Qty = 6 No Refills Losartan Potassium (Losartan Potassium) 50 MG TABLET 1 Tablet ORAL DAILY Qty = 90 No Refills Oxycodone HCl (Oxycodone HCl) 5 MG TABLET 1 Tablet ORAL EVERY SIX HOURS NEEDED as needed for PAIN SCALE 4-6 ( MODERATE) Qty = 20 No Refills Copies To: JOYCE DUNN,VIPUL Garcias
[2017-04-30 22:29] VITALS: BP 132/80
[2017-05-01 03:24] VITALS: BP 180/66
--- NOTE | 2017-05-01 04:03 | NUR ---
0330: PT FOUND TO NOT HAVE NC IN NOSE, PT COMPLAINING OF CHEST PAIN, VITALS TAKEN 180/66 HR86 98.3 RR24 81% MD CROFT INFORMED. INSTRUCTED TO RETAKE VITALS AT 0430. RESPIRATORY CALLED TO ASSESS PT. 0400: PT APPEARS TO BE SLEEPING, NC IN PLACE
[2017-05-01 04:36] VITALS: BP 152/74
--- NOTE | 2017-05-01 05:02 | NUR ---
VITALS RETAKEN 152/74 HR74 O2 90% PT OOB W MAX ASSIST TO BSC, PT UNABLE TO CATCH BREATH, O2 SAT 84%. MD HIGH NOTIFIED WILL COME TO FLOOR TO ASSESS PT.
--- NOTE | 2017-05-01 05:39 | NUR ---
MD CROFT AND MD ALARCON ON FLOOR TO ASSESS PT. CXR ORDERED, LABS AND EKG. PT COMPLAINING OF RIGHT CHEST PAIN, GRIMACING UPON PALPATION. WILL MEDICATE PER EMAR.
--- NOTE | 2017-05-01 06:17 | RADIOLOGY REPORT ---
EXAMINATION: XR PORTABLE CHEST CLINICAL INFORMATION: Acute desaturation, pleuritic chest pain COMPARISON: 04/29/2017 TECHNIQUE: Portable frontal view of the chest was obtained. FINDINGS: There is redemonstration of heterogeneous opacification throughout the right lung, which appears overall mildly worsened since 04/29/2017. The left lung remains well expanded and appears essentially clear. No pneumothorax is seen. Trace right pleural effusion is suspected. The cardiac silhouette is enlarged. The thoracic aorta is tortuous. No acute osseous findings are seen. IMPRESSION: Interval worsening of airspace disease throughout the right lung. Suspect trace right pleural effusion.
[2017-05-01 06:19] LABS: ABSOLUTE BASOPHIL COUNT 0.1 /CUMM (0.0-0.2); ABSOLUTE EOSINOPHIL COUNT 0.5 /CUMM (0.0-0.7); ABSOLUTE GRANULOCYTE CT 9.1 /CUMM (1.4-6.5); ABSOLUTE MONOCYTE COUNT 0.8 /CUMM (0.10-0.60); BASOPHIL % 0.6 % (0.0-2.0); EOSINOPHIL % 4.3 % (0-5); GRANULOCYTE % 79.3 % (42.2-75.2); HEMATOCRIT 22.8 % (37-47); MEAN CORPUSCULAR HGB 28.8 PG (27.0-31.0); MEAN CORPUSCULAR HGB CONC 32.5 G/DL (33.0-37.0); MEAN CORPUSCULAR VOLUME 88.4 FL (81.0-99.0); MEAN PLATELET VOLUME 8.2 FL (7.4-10.4); PLATELET COUNT 318 /CUMM (130-400); RBC DISTRIBUTION WIDTH 15.5 % (11.5-14.5); RED BLOOD CELL CT 2.58 /CUMM (4.20-5.40); WHITE BLOOD CELL COUNT 11.5 /CUMM (4.8-10.8)
--- NOTE | 2017-05-01 06:39 | Event Note ---
Event Note Event Note: Nurse called at 5:30 AM reporting that patient removed nasal cannula and desat to 84%. Patient was on nasal cannula 4 L. Myself and the resident evaluated the patient, she is alert oriented, reporte right chest pain that's reproducible, chronic in nature, shortness of breath. Respiratory was called and patient was placed on high nasal flow saturating 90- 91%, patient was noted to move the cannula and desat to 89% immediately. On chest examination tenderness on the right chest, bilateral diminished air entery bilateral, fine end expiratory crackles on the right side. Trops, CBC, BMP, EKG where ordered. EKG didn't show any changes from previous one on 04/29. Chest x-ray was ordered stat. Patient was given 1 dose of ibuprofen, lidocaine patch for reproducible chest pain.
--- NOTE | 2017-05-01 06:47 | PN- Housestaff ---
LASHONDA SANDOVAL MD,CYNTHIA 05/01/17 0647: Subjective Follow-up For: Acute hypoxemic respiratory failure Community-acquired pneumonia Status post mechanical fall Acute Back pain Acute kidney injury on chronic kidney disease Acute on chronic anemia Complaints: Right sided back pain Subjective: Patient is still experiencing back pain and that is likely secondary to her right-sided multilobar pneumonia. Patient remained afebrile overnight. Earlier this morning patient desaturated to 84% as nasal cannula was displaced. Oxygen saturation improved on high flow oxygen. Review of Systems Constitutional: Denies: chills, fever. Cardiovascular: Denies: chest pain, palpitations. Respiratory: Reports: short of breath. Denies: cough. Gastrointestinal: Denies: abdominal pain, nausea, vomiting. Genitourinary: Denies: discharge. Musculoskeletal: Denies: back pain. Objective Last 24 Hrs of Vital Signs/I&O Vital Signs Date Time Temp Pulse Resp B/P B/P Pulse O2 O2 Flow FiO2 Mean Ox Delivery Rate 05/01 0648 97.9 70 20 182/78 91 Nasal Cannula 05/01 0436 98.2 74 20 152/74 90 05/01 0324 98.3 86 24 180/66 81 Nasal 50% Cannula 05/01 0000 94 Nasal 50% Cannula 04/30 2229 99.2 68 20 132/80 94 Nasal Cannula 04/30 2213 95 Nasal 50% Cannula 04/30 2141 68 132/80 04/30 1930 93 Nasal 50% Cannula 04/30 1743 67 118/70 04/30 1617 90 Nasal 50% Cannula 04/30 1450 92 Nasal 50% Cannula 04/30 1359 98.2 67 20 118/70 92 04/30 1220 92 Nasal 50% Cannula 04/30 1118 80 130/72 04/30 1106 80 130/72 04/30 1105 80 130/72 04/30 1102 80 130/72 04/30 1101 80 130/72 04/30 0819 90 Nasal 50% Cannula Intake & Output 05/01 1600 05/01 0800 05/01 0000 Intake Total 240 Output Total 550 Balance -550 240 Intake, Oral 240 Output, Urine 550 Physical Exam General Appearance: Alert, Oriented X3, Cooperative, Mild Distress HEENT: Atraumatic Neck: No JVD Cardiovascular: Regular Rate, Normal S1, Normal S2 Lungs: Crackles on the Right Lung, decreased air entry at the lung bases Abdomen: Normal Bowel Sounds, Soft, No Tenderness Neurological: Normal Speech, Normal Tone, Sensation Intact Extremities: Trace b/l lower extremity edema Current Medications: Current Medications Sig/Duong Start time Last Medication Dose Route Stop Time Status Admin Acetaminophen 975 MG Q8P PRN 04/25 1100 AC 04/29 PO 0257 Acetaminophen 1,000 MG Q6P PRN 04/24 1045 AC 04/24 N/A 1 UNIT IV 1820 Albuterol Sulfate 3 ML BID 04/28 1315 AC 04/30 INH 1820 Amlodipine Besylate 5 MG DAILY 04/24 1142 AC 04/30 PO 1105 Atorvastatin Calcium 40 MG 1700 04/24 1700 AC 04/30 PO 1743 Azithromycin 500 MG DAILY 04/27 1515 AC 04/30 Sodium Chloride 250 ML IV 1115 Ceftriaxone Sodium 1,000 MG DAILY 04/27 1515 AC 04/30 IV 1115 Doxazosin Mesylate 1 MG DAILY 04/24 1245 AC 04/30 PO 1102 Epoetin Ld 20,000 UNITS Q336 04/29 1700 04/29 SC 1947 Famotidine 20 MG Q48 04/27 1000 AC 04/29 PO 0923 Ferrous Sulfate 325 MG DAILY 04/24 1143 AC 04/30 PO 1103 Furosemide 40 MG ONE ONE 04/30 0930 DC 04/30 PO 04/30 0931 1100 Hydralazine HCl 100 MG TID 04/24 1600 AC 04/30 PO 2141 Ibuprofen 600 MG ONCE ONE 05/01 0530 DC 05/01 PO 05/01 0531 0552 Isosorbide 60 MG DAILY 04/24 1144 AC 04/30 Mononitrate PO 1118 Lidocaine 1 PAT DAILY 04/26 1015 AC 04/30 EXT 1108 Lidocaine 1 PAT DAILY 04/25 1030 AC 04/29 EXT 0924 Losartan Potassium 50 MG DAILY 04/24 1237 AC 04/30 PO 1106 Morphine Sulfate 1 MG Q4P PRN 04/24 0930 04/28 IV 0615 Nebivolol 5 MG DAILY 04/24 1144 AC 04/30 PO 1102 Oxycodone HCl 5 MG Q6P PRN 04/24 0930 AC 04/30 PO 2143 Polyethylene Glycol 17 GM DAILY 04/28 1039 AC 04/30 PO 1057 Potassium Chloride 10 MEQ DAILY 04/24 1144 AC 04/30 PO 1103 Senna/Docusate Sodium 1 TAB BID 04/28 1039 AC 04/30 PO 2141 Last 24 Hrs of Lab/Ray Results Last 24 Hrs of Labs/Mics: Laboratory Tests 05/01/17 0545: Anion Gap 10, Estimated GFR 17 L, BUN/Creatinine Ratio 16.4, Troponin I 0.05, CBC w Diff NO MAN DIFF REQ, RBC 2.58 L, MCV 88.4, MCH 28.8, RDW 15.5 H, MPV 8.2, Gran % 79.3 H, Lymphocytes % 8.5 L, Monocytes % 7.3, Eosinophils % 4.3, Basophils % 0.6, Absolute Granulocytes 9.1 H, Absolute Lymphocytes 1.0 L, Absolute Monocytes 0.8 H, Absolute Eosinophils 0.5, Absolute Basophils 0.1, PUBS MCHC 32.5 L 05/01/17 0520: Troponin I Cancelled 04/30/17 1450: CBC w Diff NO MAN DIFF REQ, RBC 2.57 L, MCV 87.7, MCH 29.3, RDW 15.3 H, MPV 9.1, Gran % 82.8 H, Lymphocytes % 7.3 L, Monocytes % 6.2, Eosinophils % 3.3, Basophils % 0.4, Absolute Granulocytes 9.3 H, Absolute Lymphocytes 0.8 L, Absolute Monocytes 0.7 H, Absolute Eosinophils 0.4, Absolute Basophils 0, PUBS MCHC 33.4 Lines/Diet/Fluids Lines: peripheral lines Restraints: none Assessment/Plan Assessment: Patient is a 76 y/o F with PMHx of uncontrolled HTN, HLD, T2DM, chronic anemia, CKD stage III, chronic venous insufficiency and 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 She is being managed for intractable back pain and acute on chronic renal insufficiency. Acute hypoxemic respiratory failure Likely secondary to volume overload secondary to blood transfusion or worsening of pneumonia swallow evaluation negative for aspiration Continue with the current antibiotics for now Will obtain a stat chest x-ray to rule out worsening of pneumonia Patient had a set of troponins and EKG to rule out ACS Patient currently on high flow oxygen, Taper oxygen as tolerated Multilobar Community-acquired pneumonia Patient's oxygen requirement increased from baseline Patient remained afebrile overnight CXR showed Right upper lobe lung field opacity concerning for developing infiltrate and or atelectasis. WBC 11.3---> 12.8----> 11.5 today Patient was pancultured with cultures, lower respiratory cultures and urine culture Legionella and strep antigen negative Patient on IV ceftriaxone and azithromycin TR nebs Intractable Back Pain and Gait Instability after mechanical fall at home. Patient denied hitting her head after a fall. No acute fracture noted on lumbar X-ray (h/o old L1 fx) CT and MRI of lumbar spine show no acute fractures, but showed degenerative changes, spondylosis and foraminal canal narrowing PT recommend rehab placement Will follow-up with physical therapy to reassess if pain is improved tomorrow On Lidocaine patch for back pain daily Continue IV tylenol and PO Oxycodone for pain Acute on Chronic Renal Failure Cr improved from 3 to 2.8 Nephrology following Patient appears less dry today. Encouraged her to drink liberal oral fluids Continue to hold Lasix today as her creatinine is 3 this morning (Baseline around 2.3) Contiunue spironolactone today Re-assess renal function tomorrow morning with [facility] Nephro follow-up. No IV fluids per Nephrology Patient started on erythropoietin as per recommendations of nephrology Given patient's history of ? MGUS, and now in acute on chronic renal failure with intractable back pain, we are concerned for transformation of her MGUS into Myeloma Awaiting serum free light chains (quantification) as requested by nephrology and SPEP, IPEP. Acute and chronic anemia Multifactorial in origin, anemia of chronic disease loss iron deficiency anemia indicated increased RDW Patient did have a recent (03/25) colonoscopy and polypectomies No history of blood per rectum. Suspect large component of her anemia is due to renal failure. GI consult (Dr. Souza) appreciated. Hemoglobin today at 7.4 after 2 blood transfusions during the course of admission Continue iron supplementation Heme Onc Consult NITHIN on CPAP Patient uses CPAP at night at home and this may be contributing to her low O2 sats overnight She was counselled to tell her son to bring her CPAP machine from home so she can use it in hospital HTN Continue Bystolic , Hydralazine, Amlodipine, losartan (Olmesartan equivalent). Continue spironolactone CAD Continue Isosorbide/ASA. Hyperlipidemia Continue Statin. DVT/Prophylaxis: mechanical Patient is full code Patient is on pain management Patient is on CHF diet Problem List: 1. Acute hypoxemic respiratory failure 2. Community acquired pneumonia Pain Ratin Pain Location: Right sided back pain Pain Goal: Pain 4 or less Pain Plan: Continue current pain plan Tomorrow's Labs & Rationales: cbc for leukocytosis Bep for electrolytes DVT/Prophylaxis: mechanical Consulting Request: Consulting Specialty: Pulmonary Disease BENNY POWELL 05/01/17 0949: Attending MD Review Statement Attending Statement Attending MD Statement: examined this patient, discuss w/resident/PA/SOX ANALYST, agreed w/resident/PA/SOX ANALYST, discussed with family, reviewed EMR data (avail), discussed with nursing, discussed with case mgmt, reviewed images, amended to note Attending Assessment/Plan: ASSESSMENT 1. S/p Mechanical fall 2. acute back pain 3. PATO on CKD 4. Acute on chronic anemia 5. Anemia multifactorial (AOCD+ component of fe defeciency) 6. hypertension 7. HFpEF 65% 8. r/o multiple myeloma ?MGUS 9. Community acquired pneumonia 10 Acute hypoxemic respiratory failure. (patient received transfusion). PLAN Admit to inpatient medical services c/w i/v abx, oxygen supplementation, f/u blood cultures negative so far, sputum. Pulmonary f/u. nephrology following diuretics restarted lasix use as per nephro, bp managmenet as per nephro, ARB use as per nephro, Anemia s/p 2 unit of PRBC, cont supportive care, Fe tabs, hem appreciate. GI recommends o/p pill cam study. f/u GI as o/p. bp controlled, monitor cr. PT consult STR, fall precautions gi/dvt prophyalxis full code d/c planning anticipated, d/c if nephro and pulm ok.
[2017-05-01 06:48] VITALS: BP 182/78
--- NOTE | 2017-05-01 12:52 | PN- Hematology ---
Subjective Subjective: She continues to have fatigue. Back pain is persistent. She has increased oxygen needs. She has no fever or chills. Review of Systems: Constitutional: Denies: chills, fever. Cardiovascular: Denies: chest pain. Respiratory: Reports: short of breath. Denies: cough. Gastrointestinal: Denies: abdominal pain. Genitourinary: Denies: dysuria. Musculoskeletal: Reports: back pain. Hematologic/Endocrine: Denies: bruising, bleeding. All Other Systems: Reviewed and Negative Objective Vital Signs and I&Os Vital Signs Date Time Temp Pulse Resp B/P B/P Pulse O2 O2 Flow FiO2 Mean Ox Delivery Rate 05/01 0904 180/80 05/01 0904 180/80 05/01 0903 178/80 05/01 0903 178/80 05/01 0902 178/82 05/01 0829 94 Nasal 50% Cannula 05/01 0800 94 Nasal 50% Cannula 05/01 0648 97.9 70 20 182/78 91 Nasal Cannula 05/01 0436 98.2 74 20 152/74 90 05/01 0324 98.3 86 24 180/66 81 Nasal 50% Cannula 05/01 0000 94 Nasal 50% Cannula 04/30 2229 99.2 68 20 132/80 94 Nasal Cannula 04/30 2213 95 Nasal 50% Cannula 04/30 2141 68 132/80 04/30 1930 93 Nasal 50% Cannula 04/30 1743 67 118/70 04/30 1617 90 Nasal 50% Cannula 04/30 1450 92 Nasal 50% Cannula 04/30 1359 98.2 67 20 118/70 92 Intake & Output 05/01 1600 05/01 0800 05/01 0000 04/30 1600 04/30 0800 04/30 0000 Intake Total 240 820 120 780 Output Total 550 250 700 950 Balance -550 240 570 -580 -170 Intake, IV 300 0 280 Intake, Oral 240 520 120 500 Number 0 0 Bowel Movements Output, Urine 550 250 700 950 Patient 105.687 kg Weight Physical Exam: General Appearance: no apparent distress, comfortable, obese, on HF oxygen Respiratory: chest non-tender, quiet respiration, decreased breath sounds (at bases) Cardiovascular: regular rate/rhythm Gastrointestinal: normal bowel sounds, soft, non-tender, obese Extremities: pedal edema (1+) Lymphatic: no anterior cervical farzana Current Medications: Current Medications Sig/Duong Start time Last Medication Dose Route Stop Time Status Admin Acetaminophen 975 MG Q8P PRN 04/25 1100 AC 04/29 PO 0257 Acetaminophen 1,000 MG Q6P PRN 04/24 1045 04/24 N/A 1 UNIT IV 1820 Albuterol Sulfate 3 ML BID 04/28 1315 AC 05/01 INH 0824 Amlodipine Besylate 5 MG DAILY 04/24 1142 05/01 PO 0903 Atorvastatin Calcium 40 MG 1700 04/24 1700 AC 04/30 PO 1743 Azithromycin 500 MG DAILY 04/27 1515 AC 05/01 Sodium Chloride 250 ML IV 0903 Ceftriaxone Sodium 1,000 MG DAILY 04/27 1515 AC 05/01 IV 0903 Doxazosin Mesylate 1 MG DAILY 04/24 1245 AC 05/01 PO 0902 Epoetin Ld 20,000 UNITS Q336 04/29 1700 04/29 SC 1947 Famotidine 20 MG Q48 04/27 1000 05/01 PO 0903 Ferrous Sulfate 325 MG DAILY 04/24 1143 05/01 PO 0902 Hydralazine HCl 100 MG TID 04/24 1600 05/01 PO 0903 Ibuprofen 600 MG ONCE ONE 05/01 0530 DC 05/01 PO 05/01 0531 0552 Isosorbide 60 MG DAILY 04/24 1144 AC 05/01 Mononitrate PO 0902 Lidocaine 1 PAT DAILY 04/26 1015 AC 05/01 EXT 0902 Lidocaine 1 PAT DAILY 04/25 1030 04/29 EXT 0924 Losartan Potassium 50 MG DAILY 04/24 1237 AC 05/01 PO 0904 Morphine Sulfate 1 MG Q4P PRN 04/24 0930 AC 04/28 IV 0615 Nebivolol 5 MG DAILY 04/24 1144 AC 05/01 PO 0904 Oxycodone HCl 5 MG Q6P PRN 04/24 0930 04/30 PO 2143 Polyethylene Glycol 17 GM DAILY 04/28 1039 AC 05/01 PO 0904 Potassium Chloride 10 MEQ DAILY 04/24 1144 05/01 PO 0903 Senna/Docusate Sodium 1 TAB BID 04/28 1039 05/01 PO 0902 Spironolactone 12.5 MG DAILY 05/01 1000 AC 05/01 PO 1239 Results Last 24 Hours of Lab Results: Laboratory Tests 05/01 05/01 0545 0520 Chemistry Sodium (137 - 145 mmol/L) 143 Potassium (3.5 - 5.1 mmol/L) 4.2 Chloride (98 - 107 mmol/L) 108 H Carbon Dioxide (22 - 30 mmol/L) 25 Anion Gap (5 - 16) 10 BUN (7 - 17 mg/dL) 46 H Creatinine (0.5 - 1.0 mg/dL) 2.8 H Estimated GFR (>60 ml/min) 17 L BUN/Creatinine Ratio (7 - 25 %) 16.4 Troponin I (< 0.11 ng/ml) 0.05 Cancelled Hematology CBC w Diff NO MAN DIFF REQ WBC (4.8 - 10.8 /CUMM) 11.5 H RBC (4.20 - 5.40 /CUMM) 2.58 L Hgb (12.0 - 16.0 G/DL) 7.4 *L Hct (37 - 47 %) 22.8 L MCV (81.0 - 99.0 FL) 88.4 MCH (27.0 - 31.0 PG) 28.8 RDW (11.5 - 14.5 %) 15.5 H Plt Count (130 - 400 /CUMM) 318 MPV (7.4 - 10.4 FL) 8.2 Gran % (42.2 - 75.2 %) 79.3 H Lymphocytes % (20.5 - 51.1 %) 8.5 L Monocytes % (1.7 - 9.3 %) 7.3 Eosinophils % (0 - 5 %) 4.3 Basophils % (0.0 - 2.0 %) 0.6 Absolute Granulocytes (1.4 - 6.5 /CUMM) 9.1 H Absolute Lymphocytes (1.2 - 3.4 /CUMM) 1.0 L Absolute Monocytes (0.10 - 0.60 /CUMM) 0.8 H Absolute Eosinophils (0.0 - 0.7 /CUMM) 0.5 Absolute Basophils (0.0 - 0.2 /CUMM) 0.1 PUBS MCHC (33.0 - 37.0 G/DL) 32.5 L 04/30 1450 Hematology CBC w Diff NO MAN DIFF REQ WBC (4.8 - 10.8 /CUMM) 11.3 H RBC (4.20 - 5.40 /CUMM) 2.57 L Hgb (12.0 - 16.0 G/DL) 7.5 L Hct (37 - 47 %) 22.5 L MCV (81.0 - 99.0 FL) 87.7 MCH (27.0 - 31.0 PG) 29.3 RDW (11.5 - 14.5 %) 15.3 H Plt Count (130 - 400 /CUMM) 307 MPV (7.4 - 10.4 FL) 9.1 Gran % (42.2 - 75.2 %) 82.8 H Lymphocytes % (20.5 - 51.1 %) 7.3 L Monocytes % (1.7 - 9.3 %) 6.2 Eosinophils % (0 - 5 %) 3.3 Basophils % (0.0 - 2.0 %) 0.4 Absolute Granulocytes (1.4 - 6.5 /CUMM) 9.3 H Absolute Lymphocytes (1.2 - 3.4 /CUMM) 0.8 L Absolute Monocytes (0.10 - 0.60 /CUMM) 0.7 H Absolute Eosinophils (0.0 - 0.7 /CUMM) 0.4 Absolute Basophils (0.0 - 0.2 /CUMM) 0 PUBS MCHC (33.0 - 37.0 G/DL) 33.4 Recent Imaging Studies: CXR 05/01/2017: Interval worsening of airspace disease throughout the right lung. Suspect trace right pleural effusion. Assessment/Plan Assessment/Recommendations: Ms. 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 On admission, she had back pain and worsening anemia and renal dysfunction. Her creatinine has been around 1.9 to 2.4 for the last few years. On presentation, her creatinine has increased to 3.0. Her anemia has been running from 7.3 to 10.7 for at least 5 years. MGUS diagnosis is unclear. She has had normal SPEP and UPEP previously. Her calcium is normal. She has no noted protein gap. Serum free light chains ratio is normal during this admission. It is unlikely that she has MGUS. SPEP and UPEP are still pending. Her hemoglobin is stable but she continues to have severe fatigue. She may benefit from TRACEY support. Anemia is most likely secondary to renal disease. Consider giving patient darbepoetin given persistent anemia. Recommendations: 1. Follow up on SPEP, immunofixation, and UPEP 2. Consider 24-hour urine evaluation (UPEP 24-hour) 3. Consider TRACEY therapy - darbepoetin 4. Nephrology recommendations on CKD 5. Continue antibiotic as per primary team Please call [phone] with any questions or concerns. Problem List: 1. Community acquired pneumonia 2. Acute hypoxemic respiratory failure 3. Acute on chronic renal insufficiency 4. Anemia
--- NOTE | 2017-05-01 13:57 | PN- Pulmonary ---
Subjective HPI/Critical Care Issues: Patient is still experiencing back pain occ and that is likely secondary to her right-sided multilobar pneumonia. Patient remained afebrile overnight. Earlier this morning patient desaturated to 84% as nasal cannula was displaced. Oxygen saturation improved on high flow oxygen. Review of Systems Constitutional: Denies: chills, fever. Cardiovascular: Denies: chest pain, palpitations. Respiratory: Reports: short of breath. Denies: cough. Gastrointestinal: Denies: abdominal pain, nausea, vomiting. Genitourinary: Denies: discharge. Musculoskeletal: Denies: back jeremy Objective Current Medications: Current Medications Sig/Duong Start time Last Medication Dose Route Stop Time Status Admin Acetaminophen 975 MG Q8P PRN 04/25 1100 AC 04/29 PO 0257 Acetaminophen 1,000 MG Q6P PRN 04/24 1045 AC 04/24 N/A 1 UNIT IV 1820 Albuterol Sulfate 3 ML BID 04/28 1315 AC 05/01 INH 0824 Amlodipine Besylate 5 MG DAILY 04/24 1142 AC 05/01 PO 0903 Atorvastatin Calcium 40 MG 1700 04/24 1700 AC 04/30 PO 1743 Azithromycin 500 MG DAILY 04/27 1515 AC 05/01 Sodium Chloride 250 ML IV 0903 Ceftriaxone Sodium 1,000 MG DAILY 04/27 1515 AC 05/01 IV 0903 Doxazosin Mesylate 1 MG DAILY 04/24 1245 AC 05/01 PO 0902 Epoetin Ld 20,000 UNITS Q336 04/29 1700 AC 04/29 SC 1947 Famotidine 20 MG Q48 04/27 1000 AC 05/01 PO 0903 Ferrous Sulfate 325 MG DAILY 04/24 1143 AC 05/01 PO 0902 Hydralazine HCl 100 MG TID 04/24 1600 AC 05/01 PO 0903 Ibuprofen 600 MG ONCE ONE 05/01 0530 DC 05/01 PO 05/01 0531 0552 Isosorbide 60 MG DAILY 04/24 1144 AC 05/01 Mononitrate PO 0902 Lidocaine 1 PAT DAILY 04/26 1015 AC 05/01 EXT 0902 Lidocaine 1 PAT DAILY 04/25 1030 AC 04/29 EXT 0924 Losartan Potassium 50 MG DAILY 04/24 1237 AC 05/01 PO 0904 Morphine Sulfate 1 MG Q4P PRN 04/24 0930 AC 04/28 IV 0615 Nebivolol 5 MG DAILY 04/24 1144 AC 05/01 PO 0904 Oxycodone HCl 5 MG Q6P PRN 04/24 0930 AC 04/30 PO 2143 Polyethylene Glycol 17 GM DAILY 04/28 1039 05/01 PO 0904 Potassium Chloride 10 MEQ DAILY 04/24 1144 05/01 PO 0903 Senna/Docusate Sodium 1 TAB BID 04/28 1039 AC 05/01 PO 0902 Spironolactone 12.5 MG DAILY 05/01 1000 AC 05/01 PO 1239 Vital Signs & I&O Last 24 Hrs of Vitals and I&O: Vital Signs Date Time Temp Pulse Resp B/P B/P Pulse O2 O2 Flow FiO2 Mean Ox Delivery Rate 05/01 0904 180/80 05/01 0904 180/80 05/01 0903 178/80 05/01 0903 178/80 05/01 0902 178/82 05/01 0829 94 Nasal 50% Cannula 05/01 0800 94 Nasal 50% Cannula 05/01 0648 97.9 70 20 182/78 91 Nasal Cannula 05/01 0436 98.2 74 20 152/74 90 05/01 0324 98.3 86 24 180/66 81 Nasal 50% Cannula 05/01 0000 94 Nasal 50% Cannula 04/30 2229 99.2 68 20 132/80 94 Nasal Cannula 04/30 2213 95 Nasal 50% Cannula 04/30 2141 68 132/80 04/30 1930 93 Nasal 50% Cannula 04/30 1743 67 118/70 04/30 1617 90 Nasal 50% Cannula 04/30 1450 92 Nasal 50% Cannula 04/30 1359 98.2 67 20 118/70 92 Intake & Output 05/01 1600 05/01 0800 05/01 0000 Intake Total 240 Output Total 550 Balance -550 240 Intake, Oral 240 Output, Urine 550 Impression/Plan Impression/Plan Impression/Plan: CT chest IMPRESSION: 1. Right upper and right lower lobe consolidation consistent with pneumonia. 2. No evidence of a discrete pulmonary mass or adenopathy. 3. Patent tracheobronchial tree. DICTATED BY: CHEYANNE CHANCE MD DATE/TIME DICTATED:04/28/17 / 1342 Physical Exam General Appearance: Alert, Oriented X3, Cooperative, Mild Distress HEENT: Atraumatic Neck: Supple Cardiovascular: Regular Rate, Normal S1, Normal S2 Lungs: OVERALL DECREASED AIR ENTRY AT THE LUNG BASES,. wheezing noted bilaterally Abdomen: Normal Bowel Sounds, Soft, No Tenderness Neurological: Normal Speech, Normal Tone, Sensation Intact Extremities: BILATERAL TRACE EXTREMITY EDEMA IMPRESSION This is a 76-year-old lady with hypertension, hyperlipidemia, type 2 diabetes, chronic significant anemia, worsening chronic kidney diseasestage III versus 4, chronic venous insufficiency, diastolic dysfunction with previous heart failure, recurrent mechanical fall at home, probable neuropathy, recent colonoscopy with no malignancy with multiple polyps removed, significant lumbosacral degeneration with chronic L1 fracture, chronic low back pain, normocytic anemia, chronic lower extremity edema, now has * Improving Acute hypoxemic respiratory failure related to significant pneumonia multi lobar in the right side with pleurisy now complicated by bilateral pulmonary infiltrates after she has received blood transfusion suggestive of acute lung injury probably from transfusion versus worsening pneumonia * Significant community-acquired pneumonia in a lady with previous history of C. difficile with previous history of some some dysfunction of her immunoglobulins. No previous history of Pseudomonas. High risk for decompensation * Morbid obesity with signs and symptoms suggestive of obstructive sleep apnea but patient is not hypercarbic * Anemia of chronic disease which is now made worse by renal failure followed by hematology at this time * Significant back pain and gait instability with recent fall aswell rule out significant neuropathy probably from diabetes, compounded by significant degenerative joint and disc disease in the lumbosacral area with L5 nerve root involvement in the left with right foraminal stenosis. * Pleuritic chest pain due to pleurisy * L1 fracture which appears to be chronic * Aneurysmal dilatation of aorta noted in the MRI * Hypertension, hyperlipidemia, diabetes relatively stable at this time * Chronic venous insufficiency with lower extremity edema * Significant diastolic dysfunction of the heart with previous history of heart failure probably now fluid overloaded after blood transfusion RECOMMENDATION * High flow oxygen * Continue intravenous antibiotics, is she has fever or left shift with leucocytosis will switch abx to ceftaz and vanco * ONe dose of iv lasix today 60 mg * Adequate sugar management * Transfuse only if it's absolutely necessary * Watch for C. difficile * We will hold steroids for now as she does have pleural reaction etc. * Strict I's and O's * Repeat chest x-ray or a ct chest on thursday
[2017-05-01 15:12] VITALS: BP 130/70
--- NOTE | 2017-05-01 15:20 | NUR ---
Spoke with alfredo Clemente to discontinue protein restriction under diet at this time, continue low sodium. Diet changed to CHF starting tomorrow for breakfast.
--- NOTE | 2017-05-01 16:48 | RADIOLOGY REPORT ---
EXAMINATION: XR CHEST CLINICAL INFORMATION: Worsening pneumonia. COMPARISON: Portable chest x-ray performed earlier the same day. 04/27/2017. TECHNIQUE: 2 views of the chest were obtained. FINDINGS: Once again increase opacity throughout the majority of the right lung is identified slightly increased from earlier the same day, infiltrate and/or atelectasis. Cardiac mediastinal silhouette remains prominent. IMPRESSION: Increasing right-sided opacity, infiltrate and/or atelectasis.
--- NOTE | 2017-05-01 16:55 | PN- Nephrology ---
Assessment/Plan Assessment: 1. CKD/PATO 2. Chronic/acute back pain; status post fall 3. Pneumonia 4. Anemia 5. History of hyperlipidemia, chronic lower extremity edema possibly related to venous insufficiency, pulmonary hypertension, colonic polyps, anemia, chronic back pain and an MGUS Suggestion: 1. Can restart her back on Lasix but suggest 80 mg a.m., 40 mg p.m. but on an every other day basis 2. Procrit 20,000 units subcutaneous every other week; would ask hematology whether they will be following her in this regard as an outpatient 3. Serum immunoelectrophoresis and serum free light chains apparently still pending 4. Outpatient renal follow-up with Dr. Long Subjective Subjective: Patient was hypoxic last evening but feels better today. She walked with the aid of a walker earlier today. Appetite is reasonably good and she is currently comfortable. Renal function is stable at levels near her baseline. She remains significantly anemic and continues to be treated for pneumonia. Objective Vital Signs and I&Os Vital Signs Date Time Temp Pulse Resp B/P B/P Pulse O2 O2 Flow FiO2 Mean Ox Delivery Rate 05/01 1549 60 130/70 05/01 1512 97.5 60 22 130/70 91 05/01 1403 Room Air 05/01 0904 180/80 05/01 0904 180/80 05/01 0903 178/80 05/01 0903 178/80 05/01 0902 178/82 05/01 0829 94 Nasal 50% Cannula 05/01 0800 94 Nasal 50% Cannula 05/01 0648 97.9 70 20 182/78 91 Nasal Cannula 05/01 0436 98.2 74 20 152/74 90 05/01 0324 98.3 86 24 180/66 81 Nasal 50% Cannula 05/01 0000 94 Nasal 50% Cannula 04/30 2229 99.2 68 20 132/80 94 Nasal Cannula 04/30 2213 95 Nasal 50% Cannula 04/30 2141 68 132/80 04/30 1930 93 Nasal 50% Cannula 04/30 1743 67 118/70 Intake & Output 05/01 1600 05/01 0400 04/30 1600 04/30 0400 04/29 1600 04/29 0400 Intake Total 880 240 940 780 340 690 Output Total 550 950 950 400 Balance 330 240 -10 -170 -60 690 Intake, IV 300 280 450 Intake, Oral 880 240 640 500 340 240 Number 2 0 0 Bowel Movements Output, Urine 550 950 950 400 Patient 233 lb Weight Physical Exam: General: Well-developed, obese white female in NAD Skin: No rash or jaundice HEENT: Conjunctivae pale, sclerae anicteric, mucous membranes moist Neck: Without masses or thyromegaly, no supraclavicular or cervical adenopathy Chest: Clear to P&A Heart: Regular rate and rhythm without S3 or rub Abdomen: Obese, soft and nontender without palpable masses or organomegaly Extremities: Trace edema more pronounced on the left Neuro: No focal findings, no asterixis or myoclonus Current Medications: Current Medications Sig/Duong Start time Last Medication Dose Route Stop Time Status Admin Acetaminophen 975 MG Q8P PRN 04/25 1100 AC 04/29 PO 0257 Acetaminophen 1,000 MG Q6P PRN 04/24 1045 AC 04/24 N/A 1 UNIT IV 1820 Albuterol Sulfate 3 ML BID 04/28 1315 AC 05/01 INH 0824 Amlodipine Besylate 5 MG DAILY 04/24 1142 AC 05/01 PO 0903 Atorvastatin Calcium 40 MG 1700 04/24 1700 AC 05/01 PO 1550 Azithromycin 500 MG DAILY 04/27 1515 AC 05/01 Sodium Chloride 250 ML IV 0903 Ceftriaxone Sodium 1,000 MG DAILY 04/27 1515 AC 05/01 IV 0903 Doxazosin Mesylate 1 MG DAILY 04/24 1245 AC 05/01 PO 0902 Epoetin Ld 20,000 UNITS Q336 04/29 1700 AC 04/29 SC 1947 Famotidine 20 MG Q48 04/27 1000 AC 05/01 PO 0903 Ferrous Sulfate 325 MG DAILY 04/24 1143 AC 05/01 PO 0902 Furosemide 60 MG ONE ONE 05/01 1445 DC 05/01 PO 05/01 1446 1549 Hydralazine HCl 100 MG TID 04/24 1600 AC 05/01 PO 1549 Ibuprofen 600 MG ONCE ONE 05/01 0530 DC 05/01 PO 05/01 0531 0552 Isosorbide 60 MG DAILY 04/24 1144 AC 05/01 Mononitrate PO 0902 Lidocaine 1 PAT DAILY 04/26 1015 AC 05/01 EXT 0902 Lidocaine 1 PAT DAILY 04/25 1030 AC 04/29 EXT 0924 Losartan Potassium 50 MG DAILY 04/24 1237 AC 05/01 PO 0904 Morphine Sulfate 1 MG Q4P PRN 04/24 0930 AC 05/01 IV 1436 Nebivolol 5 MG DAILY 04/24 1144 AC 05/01 PO 0904 Oxycodone HCl 5 MG Q6P PRN 04/24 0930 AC 04/30 PO 2143 Polyethylene Glycol 17 GM DAILY 04/28 1039 AC 05/01 PO 0904 Potassium Chloride 10 MEQ DAILY 04/24 1144 AC 05/01 PO 0903 Senna/Docusate Sodium 1 TAB BID 04/28 1039 AC 05/01 PO 0902 Spironolactone 12.5 MG DAILY 05/01 1000 AC 05/01 PO 1239 Results Pertinent Lab Results: Laboratory Tests 05/01 05/01 0545 0520 Chemistry Sodium (137 - 145 mmol/L) 143 Potassium (3.5 - 5.1 mmol/L) 4.2 Chloride (98 - 107 mmol/L) 108 H Carbon Dioxide (22 - 30 mmol/L) 25 Anion Gap (5 - 16) 10 BUN (7 - 17 mg/dL) 46 H Creatinine (0.5 - 1.0 mg/dL) 2.8 H Estimated GFR (>60 ml/min) 17 L BUN/Creatinine Ratio (7 - 25 %) 16.4 Troponin I (< 0.11 ng/ml) 0.05 Cancelled Hematology CBC w Diff NO MAN DIFF REQ WBC (4.8 - 10.8 /CUMM) 11.5 H RBC (4.20 - 5.40 /CUMM) 2.58 L Hgb (12.0 - 16.0 G/DL) 7.4 *L Hct (37 - 47 %) 22.8 L MCV (81.0 - 99.0 FL) 88.4 MCH (27.0 - 31.0 PG) 28.8 RDW (11.5 - 14.5 %) 15.5 H Plt Count (130 - 400 /CUMM) 318 MPV (7.4 - 10.4 FL) 8.2 Gran % (42.2 - 75.2 %) 79.3 H Lymphocytes % (20.5 - 51.1 %) 8.5 L Monocytes % (1.7 - 9.3 %) 7.3 Eosinophils % (0 - 5 %) 4.3 Basophils % (0.0 - 2.0 %) 0.6 Absolute Granulocytes (1.4 - 6.5 /CUMM) 9.1 H Absolute Lymphocytes (1.2 - 3.4 /CUMM) 1.0 L Absolute Monocytes (0.10 - 0.60 /CUMM) 0.8 H Absolute Eosinophils (0.0 - 0.7 /CUMM) 0.5 Absolute Basophils (0.0 - 0.2 /CUMM) 0.1 PUBS MCHC (33.0 - 37.0 G/DL) 32.5 L 04/30 06/ 1450 0610 Chemistry Sodium (137 - 145 mmol/L) 142 Potassium (3.5 - 5.1 mmol/L) 4.3 Chloride (98 - 107 mmol/L) 107 Carbon Dioxide (22 - 30 mmol/L) 24 Anion Gap (5 - 16) 10 BUN (7 - 17 mg/dL) 51 H Creatinine (0.5 - 1.0 mg/dL) 3.0 H Estimated GFR (>60 ml/min) 15 L BUN/Creatinine Ratio (7 - 25 %) 17.0 Hematology CBC w Diff NO MAN DIFF REQ NO MAN DIFF REQ WBC (4.8 - 10.8 /CUMM) 11.3 H 11.1 H RBC (4.20 - 5.40 /CUMM) 2.57 L 2.48 L Hgb (12.0 - 16.0 G/DL) 7.5 L 7.2 *L Hct (37 - 47 %) 22.5 L 21.9 L MCV (81.0 - 99.0 FL) 87.7 88.4 MCH (27.0 - 31.0 PG) 29.3 28.9 RDW (11.5 - 14.5 %) 15.3 H 15.7 H Plt Count (130 - 400 /CUMM) 307 299 MPV (7.4 - 10.4 FL) 9.1 9.0 Gran % (42.2 - 75.2 %) 82.8 H 78.9 H Lymphocytes % (20.5 - 51.1 %) 7.3 L 9.6 L Monocytes % (1.7 - 9.3 %) 6.2 7.0 Eosinophils % (0 - 5 %) 3.3 4.0 Basophils % (0.0 - 2.0 %) 0.4 0.5 Absolute Granulocytes (1.4 - 6.5 /CUMM) 9.3 H 8.7 H Absolute Lymphocytes (1.2 - 3.4 /CUMM) 0.8 L 1.1 L Absolute Monocytes (0.10 - 0.60 /CUMM) 0.7 H 0.8 H Absolute Eosinophils (0.0 - 0.7 /CUMM) 0.4 0.4 Absolute Basophils (0.0 - 0.2 /CUMM) 0 0.1 PUBS MCHC (33.0 - 37.0 G/DL) 33.4 32.7 L 04/29 04/29 1200 0716 Blood Gas pH (7.35 - 7.45 PH) 7.36 pCO2 (35 - 45 TORR) 41 pO2 (80 - 100 TORR) 72 L HCO3 (21 - 28 MEQ/L) 22 ABG O2 Sat (Measured) (>96.0 %) 93.0 L Carboxyhemoglobin (1.5 - 5.0 %) 0.3 L O2 Concentration % 45% O2 Delivery Method Chemistry Troponin I Cancelled Miscellaneous Phlebotomy Draw Site LEFT RADIAL 04/29 04/29 0716 0040 Chemistry Sodium (137 - 145 mmol/L) 142 Potassium (3.5 - 5.1 mmol/L) 3.9 Chloride (98 - 107 mmol/L) 107 Carbon Dioxide (22 - 30 mmol/L) 25 Anion Gap (5 - 16) 11 BUN (7 - 17 mg/dL) 48 H Creatinine (0.5 - 1.0 mg/dL) 2.9 H Estimated GFR (>60 ml/min) 16 L BUN/Creatinine Ratio (7 - 25 %) 16.6 Troponin I (< 0.11 ng/ml) 0.06 0.07 Hematology CBC w Diff NO MAN DIFF REQ WBC (4.8 - 10.8 /CUMM) 12.8 H RBC (4.20 - 5.40 /CUMM) 2.72 L Hgb (12.0 - 16.0 G/DL) 7.9 L Hct (37 - 47 %) 24.1 L MCV (81.0 - 99.0 FL) 88.6 MCH (27.0 - 31.0 PG) 29.1 RDW (11.5 - 14.5 %) 15.4 H Plt Count (130 - 400 /CUMM) 322 MPV (7.4 - 10.4 FL) 8.9 Gran % (42.2 - 75.2 %) 82.8 H Lymphocytes % (20.5 - 51.1 %) 7.7 L Monocytes % (1.7 - 9.3 %) 6.6 Eosinophils % (0 - 5 %) 2.5 Basophils % (0.0 - 2.0 %) 0.4 Absolute Granulocytes (1.4 - 6.5 /CUMM) 10.6 H Absolute Lymphocytes (1.2 - 3.4 /CUMM) 1.0 L Absolute Monocytes (0.10 - 0.60 /CUMM) 0.8 H Absolute Eosinophils (0.0 - 0.7 /CUMM) 0.3 Absolute Basophils (0.0 - 0.2 /CUMM) 0.1 PUBS MCHC (33.0 - 37.0 G/DL) 32.9 L 04/28 2040 Hematology CBC w Diff NO MAN DIFF REQ WBC (4.8 - 10.8 /CUMM) 12.3 H RBC (4.20 - 5.40 /CUMM) 2.58 L Hgb (12.0 - 16.0 G/DL) 7.5 L Hct (37 - 47 %) 22.9 L MCV (81.0 - 99.0 FL) 88.7 MCH (27.0 - 31.0 PG) 29.0 RDW (11.5 - 14.5 %) 15.6 H Plt Count (130 - 400 /CUMM) 285 MPV (7.4 - 10.4 FL) 9.3 Gran % (42.2 - 75.2 %) 79.5 H Lymphocytes % (20.5 - 51.1 %) 10.5 L Monocytes % (1.7 - 9.3 %) 8.2 Eosinophils % (0 - 5 %) 1.7 Basophils % (0.0 - 2.0 %) 0.1 Absolute Granulocytes (1.4 - 6.5 /CUMM) 9.8 H Absolute Lymphocytes (1.2 - 3.4 /CUMM) 1.3 Absolute Monocytes (0.10 - 0.60 /CUMM) 1.0 H Absolute Eosinophils (0.0 - 0.7 /CUMM) 0.2 Absolute Basophils (0.0 - 0.2 /CUMM) 0 PUBS MCHC (33.0 - 37.0 G/DL) 32.7 L
[2017-05-01 22:50] VITALS: BP 162/76
--- NOTE | 2017-05-02 05:59 | PN- Housestaff ---
LASHONDA SANDOVAL MD,[facility] 05/02/17 0559: Subjective Follow-up For: Acute hypoxemic respiratory failure Community-acquired pneumonia Status post mechanical fall Acute Back pain Acute kidney injury on chronic kidney disease Acute on chronic anemia Complaints: Back pain Subjective: Patient is still experiencing back pain and that is likely secondary to her right-sided multilobar pneumonia. Patient remained afebrile overnight. Oxygen saturation 92% on high flow oxygen nasal cannula 45% decreased from 50%. Review of Systems Constitutional: Denies: chills, fever. Cardiovascular: Denies: chest pain, palpitations. Respiratory: Reports: short of breath. Denies: cough. Gastrointestinal: Denies: abdominal pain, nausea, vomiting. Genitourinary: Denies: dysuria. Musculoskeletal: Reports: back pain. Objective Last 24 Hrs of Vital Signs/I&O Vital Signs Date Time Temp Pulse Resp B/P B/P Pulse O2 O2 Flow FiO2 Mean Ox Delivery Rate 05/02 0000 92 Nasal 45% Cannula 05/01 2250 98.6 72 24 162/76 92 05/01 2136 72 162/76 05/01 1832 92 Nasal 45% Cannula 05/01 1600 Nasal 45% Cannula 05/01 1549 60 130/70 05/01 1512 97.5 60 22 130/70 91 05/01 1403 Room Air 05/01 0904 180/80 05/01 0904 180/80 05/01 0903 178/80 05/01 0903 178/80 05/01 0902 178/82 05/01 0829 94 Nasal 50% Cannula 05/01 0800 94 Nasal 50% Cannula 05/01 0648 97.9 70 20 182/78 91 Nasal Cannula Intake & Output 05/02 0800 05/02 0000 05/01 1600 Intake Total 240 480 880 Output Total 200 450 Balance 40 30 880 Intake, Oral 240 480 880 Number 1 2 Bowel Movements Output, Urine 200 450 Physical Exam General Appearance: Alert, Oriented X3, Cooperative, Mild Distress HEENT: Atraumatic Neck: No JVD Cardiovascular: Regular Rate, Normal S1, Normal S2 Lungs: crackles on the right side of the lung, decreased air entry at lung bases Abdomen: Soft Neurological: Normal Speech, Normal Tone, Sensation Intact Extremities: trace bilateral lower extremity edema Current Medications: Current Medications Sig/Duong Start time Last Medication Dose Route Stop Time Status Admin Acetaminophen 975 MG Q8P PRN 04/25 1100 04/29 PO 0257 Acetaminophen 1,000 MG Q6P PRN 04/24 1045 04/24 N/A 1 UNIT IV 1820 Albuterol Sulfate 3 ML BID 04/28 1315 AC 05/01 INH 1825 Amlodipine Besylate 5 MG DAILY 04/24 1142 05/01 PO 0903 Atorvastatin Calcium 40 MG 1700 04/24 1700 AC 05/01 PO 1550 Azithromycin 500 MG DAILY 04/27 1515 05/01 Sodium Chloride 250 ML IV 0903 Ceftriaxone Sodium 1,000 MG DAILY 04/27 1515 AC 05/01 IV 0903 Doxazosin Mesylate 1 MG DAILY 04/24 1245 05/01 PO 0902 Epoetin Ld 20,000 UNITS Q336 04/29 1700 04/29 SC 1947 Famotidine 20 MG Q48 04/27 1000 05/01 PO 0903 Ferrous Sulfate 325 MG DAILY 04/24 1143 05/01 PO 0902 Furosemide 80 MG Q48 05/03 1000 PO Furosemide 40 MG Q48 05/02 1000 PO Furosemide 60 MG ONE ONE 05/01 1445 DC 05/01 PO 05/01 1446 1549 Hydralazine HCl 100 MG TID 04/24 1600 AC 05/01 PO 2136 Isosorbide 60 MG DAILY 04/24 1144 AC 05/01 Mononitrate PO 0902 Lidocaine 1 PAT DAILY 04/26 1015 05/01 EXT 0902 Lidocaine 1 PAT DAILY 04/25 1030 04/29 EXT 0924 Losartan Potassium 50 MG DAILY 04/24 1237 05/01 PO 0904 Morphine Sulfate 1 MG Q4P PRN 04/24 0930 05/01 IV 1436 Nebivolol 5 MG DAILY 04/24 1144 05/01 PO 0904 Oxycodone HCl 5 MG Q6P PRN 04/24 0930 05/02 PO 0245 Polyethylene Glycol 17 GM DAILY 04/28 1039 05/01 PO 0904 Potassium Chloride 10 MEQ DAILY 04/24 1144 05/01 PO 0903 Senna/Docusate Sodium 1 TAB BID 04/28 1039 AC 05/01 PO 2136 Spironolactone 12.5 MG DAILY 05/01 1000 AC 05/01 PO 1239 Lines/Diet/Fluids Lines: peripheral lines Restraints: none Assessment/Plan Assessment: Patient is a 76 y/o F with PMHx of uncontrolled HTN, HLD, T2DM, chronic anemia, CKD stage III, chronic venous insufficiency and 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 She is being managed for intractable back pain and acute on chronic renal insufficiency. Acute hypoxemic respiratory failure Likely secondary to volume overload secondary to blood transfusion or worsening of pneumonia swallow evaluation negative for aspiration Continue with the current antibiotics for now Will obtain a PA and lateral chest x-ray on Thursday to assess worsening of pneumonia Patient had a set of troponins and EKG to rule out ACS Patient currently on high flow oxygen, Taper oxygen as tolerated Multilobar Community-acquired pneumonia Patient's oxygen requirement increased from baseline Patient remained afebrile overnight CXR showed Right upper lobe lung field opacity concerning for developing infiltrate and or atelectasis. WBC 11.3---> 12.8----> 11.5----> Pending Patient was pancultured with cultures, lower respiratory cultures and urine culture Legionella and strep antigen negative Patient on IV ceftriaxone and azithromycin TR nebs Intractable Back Pain and Gait Instability after mechanical fall at home. Patient denied hitting her head after a fall. No acute fracture noted on lumbar X-ray (h/o old L1 fx) CT and MRI of lumbar spine show no acute fractures, but showed degenerative changes, spondylosis and foraminal canal narrowing PT recommend rehab placement Will follow-up with physical therapy to reassess if pain is improved tomorrow On Lidocaine patch for back pain daily Continue IV tylenol and PO Oxycodone for pain Acute on Chronic Renal Failure Cr improved from 3 to 2.8---current pending (Baseline around 2.3) Nephrology following Patient was restarted on 40 mg every 48 and 80 mg every 48 alternatively of by mouth Lasix as per nephrology recommendations Contiunue spironolactone today Re-assess renal function tomorrow morning with BEP No IV fluids per Nephrology Patient started on erythropoietin as per recommendations of nephrology Given patient's history of ? MGUS, and now in acute on chronic renal failure with intractable back pain, we are concerned for transformation of her MGUS into Myeloma Awaiting serum free light chains (quantification) as requested by nephrology and SPEP, IPEP. Acute and chronic anemia Multifactorial in origin, anemia of chronic disease loss iron deficiency anemia indicated increased RDW Patient did have a recent (03/25) colonoscopy and polypectomies No history of blood per rectum. Suspect large component of her anemia is due to renal failure. GI consult (Dr. Souza) appreciated. Hemoglobin today at ( pending ) after 2 blood transfusions during the course of admission Continue iron supplementation Heme Onc Consult NITHIN on CPAP Patient uses CPAP at night at home and this may be contributing to her low O2 sats overnight She was counselled to tell her son to bring her CPAP machine from home so she can use it in hospital HTN Continue Bystolic , Hydralazine, Amlodipine, losartan (Olmesartan equivalent). Continue spironolactone CAD Continue Isosorbide/ASA. Hyperlipidemia Continue Statin. DVT/Prophylaxis: mechanical Patient is full code Patient is on pain management Patient is on CHF diet Problem List: 1. Acute hypoxemic respiratory failure 2. Acute on chronic renal insufficiency 3. Acute back pain 4. Symptomatic anemia Pain Ratin Pain Location: Back pain Alt Method for Pain Treatment: Backrub Pain Goal: Pain 4 or less (is) Pain Plan: Continue current pain medications with back rub Tomorrow's Labs & Rationales: CBC for anemia and leukocytosis BEP for acute kidney injury on chronic kidney injury DVT/Prophylaxis: mechanical Consulting Request: Consulting Specialty: Pulmonary Disease BENNY POWELL 05/02/17 1250: Attending MD Review Statement Attending Statement Attending MD Statement: examined this patient, discuss w/resident/PA/PLAYGROUND DIRECTOR, agreed w/resident/PA/PLAYGROUND DIRECTOR, discussed with family, reviewed EMR data (avail), discussed with nursing, discussed with case mgmt, reviewed images, amended to note Attending Assessment/Plan: ASSESSMENT 1. S/p Mechanical fall 2. acute back pain 3. PATO on CKD 4. Acute on chronic anemia 5. Anemia multifactorial (AOCD+ component of fe defeciency) 6. hypertension 7. HFpEF 65% 8. r/o multiple myeloma ?MGUS 9. Community acquired pneumonia 10 Acute hypoxemic respiratory failure. (patient received transfusion). PLAN Admit to inpatient medical services c/w i/v abx, oxygen supplementation, f/u blood cultures negative so far, sputum. Pulmonary f/u. nephrology following diuretics restarted lasix use as per nephro, bp managmenet as per nephro, ARB use as per nephro, Anemia s/p 2 unit of PRBC, cont supportive care, Fe tabs, hem appreciate. GI recommends o/p pill cam study. f/u GI as o/p. bp controlled, monitor cr. PT consult STR, fall precautions gi/dvt prophyalxis full code d/c planning anticipated, d/c if nephro and pulm ok.
[2017-05-02 06:43] VITALS: BP 184/80
[2017-05-02 08:30] LABS: ABSOLUTE BASOPHIL COUNT 0 /CUMM (0.0-0.2)
[2017-05-02 08:33] LABS: ABSOLUTE EOSINOPHIL COUNT 0.6 /CUMM (0.0-0.7); ABSOLUTE LYMPH COUNT 1.1 /CUMM (1.2-3.4); ABSOLUTE MONOCYTE COUNT 0.8 /CUMM (0.10-0.60); BASOPHIL % 0.4 % (0.0-2.0); EOSINOPHIL % 5.1 % (0-5); GRANULOCYTE % 77.8 % (42.2-75.2); MEAN CORPUSCULAR HGB 28.5 PG (27.0-31.0); MEAN CORPUSCULAR HGB CONC 32.1 G/DL (33.0-37.0); MEAN CORPUSCULAR VOLUME 88.9 FL (81.0-99.0); MEAN PLATELET VOLUME 8.2 FL (7.4-10.4); PLATELET COUNT 354 /CUMM (130-400); RBC DISTRIBUTION WIDTH 15.5 % (11.5-14.5); RED BLOOD CELL CT 2.59 /CUMM (4.20-5.40); WHITE BLOOD CELL COUNT 11.5 /CUMM (4.8-10.8)
[2017-05-02 14:26] VITALS: BP 158/77
--- NOTE | 2017-05-02 14:59 | PN- Pulmonary ---
Subjective HPI/Critical Care Issues: The patient is awake and alert. She reports feeling improved. She offers no new complaints today. Objective Current Medications: Current Medications Sig/Duong Start time Last Medication Dose Route Stop Time Status Admin Acetaminophen 975 MG Q8P PRN 04/25 1100 AC 04/29 PO 0257 Acetaminophen 1,000 MG Q6P PRN 04/24 1045 AC 04/24 N/A 1 UNIT IV 1820 Albuterol Sulfate 3 ML BID 04/28 1315 AC 05/02 INH 0846 Amlodipine Besylate 10 MG DAILY 05/03 1000 AC PO Amlodipine Besylate 5 MG DAILY 04/24 1142 DC 05/02 PO 0931 Atorvastatin Calcium 40 MG 1700 04/24 1700 AC 05/01 PO 1550 Azithromycin 500 MG DAILY 04/27 1515 AC 05/02 Sodium Chloride 250 ML IV 0931 Ceftriaxone Sodium 1,000 MG DAILY 04/27 1515 AC 05/02 IV 0931 Doxazosin Mesylate 1 MG DAILY 04/24 1245 AC 05/02 PO 0930 Epoetin Ld 20,000 UNITS Q336 04/29 1700 AC 04/29 SC 1947 Famotidine 20 MG Q48 04/27 1000 AC 05/01 PO 0903 Ferrous Sulfate 325 MG DAILY 04/24 1143 AC 05/02 PO 0942 Furosemide 80 MG Q48 05/03 1000 AC PO Furosemide 40 MG Q48 05/02 1000 AC 05/02 PO 0930 Hydralazine HCl 100 MG TID 04/24 1600 AC 05/02 PO 0930 Isosorbide 60 MG DAILY 04/24 1144 AC 05/02 Mononitrate PO 0930 Lidocaine 1 PAT DAILY 04/26 1015 AC 05/01 EXT 0902 Lidocaine 1 PAT DAILY 04/25 1030 AC 05/02 EXT 0931 Losartan Potassium 50 MG DAILY 04/24 1237 AC 05/02 PO 0930 Morphine Sulfate 1 MG Q4P PRN 04/24 0930 AC 05/01 IV 1436 Nebivolol 5 MG DAILY 04/24 1144 AC 05/02 PO 0942 Oxycodone HCl 5 MG Q6P PRN 04/24 0930 AC 05/02 PO 0245 Polyethylene Glycol 17 GM DAILY 04/28 1039 AC 05/02 PO 0932 Potassium Chloride 10 MEQ DAILY 04/24 1144 AC 05/02 PO 0930 Senna/Docusate Sodium 1 TAB BID 04/28 1039 AC 05/02 PO 0931 Spironolactone 12.5 MG DAILY 05/01 1000 AC 05/02 PO 0931 Vital Signs & I&O Last 24 Hrs of Vitals and I&O: Vital Signs Date Time Temp Pulse Resp B/P B/P Pulse O2 O2 Flow FiO2 Mean Ox Delivery Rate 05/02 1426 98.4 77 20 158/77 90 05/02 0942 154/94 05/02 0931 154/94 05/02 0930 154/94 05/02 0930 154/94 05/02 0930 154/9 05/02 0849 96 Nasal 40% Cannula 05/02 0800 92 Nasal 45% Cannula 05/02 0643 98.1 76 20 184/80 94 05/02 0000 92 Nasal 45% Cannula 05/01 2250 98.6 72 24 162/76 92 05/01 2136 72 162/76 05/01 1832 92 Nasal 45% Cannula 05/01 1600 Nasal 45% Cannula 05/01 1549 60 130/70 05/01 1512 97.5 60 22 130/70 91 Intake & Output 05/02 1600 05/02 0800 05/02 0000 Intake Total 240 240 480 Output Total 850 200 450 Balance -610 40 30 Intake, Oral 240 240 480 Number 1 Bowel Movements Output, Urine 850 200 450 Physical Exam General Appearance: Alert, Oriented X3, Cooperative HEENT: Atraumatic Neck: Supple Cardiovascular: Regular Rate, Normal S1, Normal S2 Lungs: bilateral wheezes heard throughout both lung chahal Abdomen: Normal Bowel Sounds, Soft, No Tenderness Neurological: Normal Speech, Normal Tone, Sensation Intact Extremities: trace edema Results Last 24 Hrs of Lab Results: Laboratory Tests 05/02/17 0810: CBC w Diff NO MAN DIFF REQ, RBC 2.59 L, MCV 88.9, MCH 28.5, RDW 15.5 H, MPV 8.2, Gran % 77.8 H, Lymphocytes % 9.4 L, Monocytes % 7.3, Eosinophils % 5.1 H , Basophils % 0.4, Absolute Granulocytes 9.0 H, Absolute Lymphocytes 1.1 L, Absolute Monocytes 0.8 H, Absolute Eosinophils 0.6, Absolute Basophils 0, PUBS MCHC 32.1 L 05/02/17 0610: Anion Gap 14, Estimated GFR 17 L, BUN/Creatinine Ratio 18.1 Diagnostic Data CXR Findings: Interval worsening of airspace disease throughout the right lung. Suspect trace right pleural effusion. Impression/Plan Impression/Plan Impression/Plan: 1. Acute hypoxemic respiratory failure secondary to multilobar lobar pneumonia on the right side. 2. Possible TRALI. 3. Morbid obesity with possible obstructive sleep apnea. 4. Anemia of chronic disease, without evidence of active bleeding. 5. Significant back pain and gait instability with recent falls. 6. Pleuritic chest pain secondary to pleurisy. 7. Hypertension, hyperlipidemia and diabetes, followed by the primary care team. Recommendations: * Continue nebs, TRC. * Supplemental oxygen to be weaned down as tolerated. * Check a repeat chest x-ray/CT chest tomorrow depending upon the patient's progress. * Monitor off his steroids. * Continue IV antibiotics (ceftriaxone and azithromycin), follow up culture results. * Continue oral Lasix/negative fluid balance. * Continue with pain control. * DVT prophylaxis at all times. * Continue all supportive care.
[2017-05-02 22:39] VITALS: BP 142/80
[2017-05-03 06:03] VITALS: BP 166/90
--- NOTE | 2017-05-03 07:25 | PN- Housestaff ---
DOC DUNN,[facility] 05/03/17 0725: Subjective Follow-up For: Mechanical Fall Hypoxia Subjective: Ms. Hernandez was seen and examined this morning. Seated on the chair beside her bed. Patient states that she is really tired today and is laconic. She states she was unable to sleep overnight. She continues to be on supplemental oxygen via nasal cannula, 5 L. She denies any other complaints except for being very somnolent. She denies any fever, chills, nausea, vomiting. Review of Systems Constitutional: Reports: see HPI. Objective Last 24 Hrs of Vital Signs/I&O Vital Signs Date Time Temp Pulse Resp B/P B/P Pulse O2 O2 Flow FiO2 Mean Ox Delivery Rate 05/03 0920 95 Nasal 5.0L Cannula 05/03 0800 90 Nasal 5.0L Cannula 05/03 0603 98.5 63 22 166/90 91 Nasal Cannula 05/03 0000 Nasal 5.0L Cannula 05/02 2239 98.3 77 20 142/80 93 Nasal 5.0L Cannula 05/02 2116 78 144/84 05/02 2043 94 Nasal 5.0L Cannula 05/02 1723 148/84 05/02 1600 90 Nasal 5.0L Cannula 05/02 1426 98.4 77 20 158/77 90 05/02 0942 154/94 05/02 0931 154/94 05/02 0930 154/94 05/02 0930 154/94 05/02 0930 154/9 Intake & Output 05/03 1600 05/03 0800 05/03 0000 Intake Total Output Total 400 100 Balance -400 -100 Output, Urine 400 100 Physical Exam General Appearance: Alert, Oriented X3 Cardiovascular: Regular Rate, Normal S1, Normal S2 Lungs: Normal Air Movement Abdomen: Normal Bowel Sounds, Soft, No Tenderness, Distended Neurological: Normal Speech Extremities: Edema 2+ Vascular: Normal Pulses Current Medications: Current Medications Sig/Duong Start time Last Medication Dose Route Stop Time Status Admin Acetaminophen 975 MG Q8P PRN 04/25 1100 AC 04/29 PO 0257 Acetaminophen 1,000 MG Q6P PRN 04/24 1045 AC 04/24 N/A 1 UNIT IV 1820 Albuterol Sulfate 3 ML BID 04/28 1315 AC 05/03 INH 0917 Amlodipine Besylate 10 MG DAILY 05/03 1000 AC PO Amlodipine Besylate 5 MG DAILY 04/24 1142 DC 05/02 PO 0931 Atorvastatin Calcium 40 MG 1700 04/24 1700 AC 05/02 PO 1723 Azithromycin 500 MG DAILY 04/27 1515 AC 05/02 Sodium Chloride 250 ML IV 0931 Ceftriaxone Sodium 1,000 MG DAILY 04/27 1515 AC 05/02 IV 0931 Doxazosin Mesylate 1 MG DAILY 04/24 1245 AC 05/02 PO 0930 Epoetin Ld 20,000 UNITS Q336 04/29 1700 AC 04/29 SC 1947 Famotidine 20 MG Q48 04/27 1000 AC 05/01 PO 0903 Ferrous Sulfate 325 MG DAILY 04/24 1143 AC 05/02 PO 0942 Furosemide 80 MG Q48 05/03 1000 AC PO Furosemide 40 MG Q48 05/02 1000 AC 05/02 PO 0930 Hydralazine HCl 100 MG TID 04/24 1600 AC 05/02 PO 2116 Isosorbide 60 MG DAILY 04/24 1144 AC 05/02 Mononitrate PO 0930 Lidocaine 1 PAT DAILY 04/26 1015 AC 05/01 EXT 0902 Lidocaine 1 PAT DAILY 04/25 1030 AC 05/02 EXT 0931 Losartan Potassium 50 MG DAILY 04/24 1237 AC 05/02 PO 0930 Morphine Sulfate 1 MG Q4P PRN 04/24 0930 AC 05/01 IV 1436 Nebivolol 5 MG DAILY 04/24 1144 AC 05/02 PO 0942 Oxycodone HCl 5 MG Q6P PRN 04/24 0930 AC 05/02 PO 2152 Polyethylene Glycol 17 GM DAILY 04/28 1039 AC 05/02 PO 0932 Potassium Chloride 10 MEQ DAILY 04/24 1144 AC 05/02 PO 0930 Senna/Docusate Sodium 1 TAB BID 04/28 1039 AC 05/02 PO 2116 Spironolactone 12.5 MG DAILY 05/01 1000 AC 05/02 PO 0931 Last 24 Hrs of Lab/Ray Results Last 24 Hrs of Labs/Mics: Laboratory Tests 05/03/17 0700: Anion Gap 12, Estimated GFR 19 L, BUN/Creatinine Ratio 19.2, CBC w Diff NO MAN DIFF REQ, RBC 2.56 L, MCV 89.9, MCH 29.0, RDW 15.6 H, MPV 8.7, Gran % 79.9 H, Lymphocytes % 7.9 L, Monocytes % 7.3, Eosinophils % 4.4, Basophils % 0.5, Absolute Granulocytes 9.1 H, Absolute Lymphocytes 0.9 L, Absolute Monocytes 0.8 H, Absolute Eosinophils 0.5, Absolute Basophils 0.1, PUBS MCHC 32.2 L Orders Miscellaneous Findings: EXAM TYPE: RAD - XRY-CHEST XRAY, PA AND LATERAL EXAMINATION: XR CHEST CLINICAL INFORMATION: Increased oxygen requirement and leukocytosis. COMPARISON: Previous chest x-rays most recent 05/01/[address] 04/28/2017 TECHNIQUE: 2 views of the chest were obtained. FINDINGS: The cardiac silhouette is enlarged but stable. Hilar and mediastinal contours are unremarkable. There is diffuse multilobar right-sided airspace disease. This does not appear appreciably changed from most recent chest x-ray. The left lung is clear. There may be a tiny right pleural effusion. There is no left pleural effusion. There is no pneumothorax. There are degenerative changes of the spine. IMPRESSION: No appreciable change in the multilobar right-sided airspace disease 05/01/2017 chest x-ray. 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 She is being managed for intractable back pain and acute on chronic renal insufficiency. Acute hypoxemic respiratory failure Likely secondary to volume overload secondary to blood transfusion or worsening of pneumonia swallow evaluation negative for aspiration Continue with the current antibiotics for now Will obtain a PA and lateral chest x-ray: No appreciable change in the multilobar right-sided airspace disease 05/01/2017 chest x-ray. Patient currently on high flow oxygen, Taper oxygen as tolerated Multilobar Community-acquired pneumonia Patient's oxygen requirement increased from baseline Patient remained afebrile overnight CXR showed Right upper lobe lung field opacity concerning for developing infiltrate and or atelectasis. WBC 11.3---> 12.8----> 11.5----> 11.4 Patient was pancultured with cultures, lower respiratory cultures and urine culture Legionella and strep antigen negative Patient on IV ceftriaxone Azithromycin discontinued after receving greater than 5 days of azithromycin [facility] nebs Intractable Back Pain and Gait Instability after mechanical fall at home. Patient denied hitting her head after a fall. No acute fracture noted on lumbar X-ray (h/o old L1 fx) CT and MRI of lumbar spine show no acute fractures, but showed degenerative changes, spondylosis and foraminal canal narrowing PT recommend rehab placement Will follow-up with physical therapy to reassess if pain is improved tomorrow On Lidocaine patch for back pain daily Continue IV tylenol and PO Oxycodone for pain Acute on Chronic Renal Failure Cr improved from 3 to 2.8---current pending (Baseline around 2.3) Nephrology following Patient was restarted on 40 mg every 48 and 80 mg every 48 alternatively of by mouth Lasix as per nephrology recommendations Contiunue spironolactone today Re-assess renal function tomorrow morning with BEP No IV fluids per Nephrology Patient started on erythropoietin as per recommendations of nephrology Given patient's history of ? MGUS, and now in acute on chronic renal failure with intractable back pain, we are concerned for transformation of her MGUS into Myeloma Awaiting serum free light chains (quantification) as requested by nephrology and SPEP, IPEP. Acute and chronic anemia Multifactorial in origin, anemia of chronic disease loss iron deficiency anemia indicated increased RDW Patient did have a recent (03/25) colonoscopy and polypectomies No history of blood per rectum. Suspect large component of her anemia is due to renal failure. GI consult (Dr. Souza) appreciated. Hemoglobin today at 7.4/23.0 Continue iron supplementation Heme Onc Consult NITHIN on CPAP Patient uses CPAP at night at home and this may be contributing to her low O2 sats overnight She was counselled to tell her son to bring her CPAP machine from home so she can use it in hospital HTN Continue Bystolic , Hydralazine, Amlodipine, losartan (Olmesartan equivalent). Continue spironolactone CAD Continue Isosorbide/ASA. Hyperlipidemia Continue Statin. DVT/Prophylaxis: mechanical Patient is full code Patient is on pain management Patient is on CHF diet Problem List: 1. Acute hypoxemic respiratory failure 2. Community acquired pneumonia 3. Acute back pain 4. Acute on chronic renal insufficiency 5. Anemia Pain Ratin Pain Location: No Pain Endorsed Pain Goal: Remain pain free Pain Plan: Lidocaine Patch Tomorrow's Labs & Rationales: CBC for anemia and leukocytosis BEP for acute kidney injury on chronic kidney injury Consulting Request: Consulting Specialty: Pulmonary Disease BENNY POWELL 05/03/17 0939: Attending MD Review Statement Attending Statement Attending MD Statement: examined this patient, discuss w/resident/PA/BRIM EDGE TRIMMER, agreed w/resident/PA/BRIM EDGE TRIMMER, discussed with family, reviewed EMR data (avail), discussed with nursing, discussed with case mgmt, reviewed images, amended to note Attending Assessment/Plan: ASSESSMENT 1. S/p Mechanical fall 2. acute back pain 3. PATO on CKD 4. Acute on chronic anemia 5. Anemia multifactorial (AOCD+ component of fe defeciency) 6. hypertension 7. HFpEF 65% 8. r/o multiple myeloma ?MGUS 9. Community acquired pneumonia 10 Acute hypoxemic respiratory failure. (patient received transfusion). PLAN Admit to inpatient medical services c/w i/v abx, oxygen supplementation, f/u blood cultures negative so far, sputum. Pulmonary f/u. nephrology following diuretics restarted lasix use as per nephro, bp managmenet as per nephro, ARB use as per nephro, Anemia s/p 2 unit of PRBC, cont supportive care, Fe tabs, hem appreciate. GI recommends o/p pill cam study. f/u GI as o/p. bp controlled, monitor cr. PT consult STR, fall precautions gi/dvt prophyalxis full code d/c planning anticipated, d/c if nephro and pulm ok
[2017-05-03 08:32] LABS: ABSOLUTE BASOPHIL COUNT 0.1 /CUMM (0.0-0.2); ABSOLUTE EOSINOPHIL COUNT 0.5 /CUMM (0.0-0.7); ABSOLUTE MONOCYTE COUNT 0.8 /CUMM (0.10-0.60); BASOPHIL % 0.5 % (0.0-2.0); MEAN CORPUSCULAR HGB CONC 32.2 G/DL (33.0-37.0)
[2017-05-03 09:07] LABS: ABSOLUTE GRANULOCYTE CT 9.1 /CUMM (1.4-6.5); ABSOLUTE LYMPH COUNT 0.9 /CUMM (1.2-3.4); EOSINOPHIL % 4.4 % (0-5); GRANULOCYTE % 79.9 % (42.2-75.2); MEAN CORPUSCULAR VOLUME 89.9 FL (81.0-99.0); MEAN PLATELET VOLUME 8.7 FL (7.4-10.4); PLATELET COUNT 383 /CUMM (130-400); RBC DISTRIBUTION WIDTH 15.6 % (11.5-14.5); RED BLOOD CELL CT 2.56 /CUMM (4.20-5.40); WHITE BLOOD CELL COUNT 11.4 /CUMM (4.8-10.8)
--- NOTE | 2017-05-03 10:42 | RADIOLOGY REPORT ---
EXAMINATION: XR CHEST CLINICAL INFORMATION: Increased oxygen requirement and leukocytosis. COMPARISON: Previous chest x-rays most recent 05/01/[address] 04/28/2017 TECHNIQUE: 2 views of the chest were obtained. FINDINGS: The cardiac silhouette is enlarged but stable. Hilar and mediastinal contours are unremarkable. There is diffuse multilobar right-sided airspace disease. This does not appear appreciably changed from most recent chest x-ray. The left lung is clear. There may be a tiny right pleural effusion. There is no left pleural effusion. There is no pneumothorax. There are degenerative changes of the spine. IMPRESSION: No appreciable change in the multilobar right-sided airspace disease 05/01/2017 chest x-ray.
--- NOTE | 2017-05-03 11:40 | PN- Pulmonary ---
Subjective HPI/Critical Care Issues: The patient is awake and alert. She did not offer complaints, noting she remained on her cell phone during the interview. There are no new issues as per staff. Objective Current Medications: Current Medications Sig/Duong Start time Last Medication Dose Route Stop Time Status Admin Acetaminophen 975 MG Q8P PRN 04/25 1100 AC 04/29 PO 0257 Acetaminophen 1,000 MG Q6P PRN 04/24 1045 AC 04/24 N/A 1 UNIT IV 1820 Albuterol Sulfate 3 ML BID 04/28 1315 AC 05/03 INH 0917 Amlodipine Besylate 10 MG DAILY 05/03 1000 AC 05/03 PO 0932 Amlodipine Besylate 5 MG DAILY 04/24 1142 DC 05/02 PO 0931 Atorvastatin Calcium 40 MG 1700 04/24 1700 AC 05/02 PO 1723 Azithromycin 500 MG DAILY 04/27 1515 DC 05/03 Sodium Chloride 250 ML IV 0931 Ceftriaxone Sodium 1,000 MG DAILY 04/27 1515 AC 05/03 IV 0931 Doxazosin Mesylate 1 MG DAILY 04/24 1245 AC 05/03 PO 0932 Epoetin Ld 20,000 UNITS Q336 04/29 1700 AC 04/29 SC 1947 Famotidine 20 MG Q48 04/27 1000 AC 05/03 PO 0932 Ferrous Sulfate 325 MG DAILY 04/24 1143 AC 05/03 PO 0932 Furosemide 80 MG Q48 05/03 1000 AC 05/03 PO 0932 Furosemide 40 MG Q48 05/02 1000 AC 05/02 PO 0930 Hydralazine HCl 100 MG TID 04/24 1600 AC 05/03 PO 0932 Isosorbide 60 MG DAILY 04/24 1144 AC 05/03 Mononitrate PO 0932 Lidocaine 1 PAT DAILY 04/26 1015 AC 05/01 EXT 0902 Lidocaine 1 PAT DAILY 04/25 1030 AC 05/03 EXT 0933 Losartan Potassium 50 MG DAILY 04/24 1237 AC 05/03 PO 0933 Morphine Sulfate 1 MG Q4P PRN 04/24 0930 AC 05/01 IV 1436 Nebivolol 5 MG DAILY 04/24 1144 AC 05/03 PO 0931 Oxycodone HCl 5 MG Q6P PRN 04/24 0930 AC 05/02 PO 2152 Polyethylene Glycol 17 GM DAILY 04/28 1039 AC 05/03 PO 0931 Potassium Chloride 10 MEQ DAILY 04/24 1144 AC 05/03 PO 0931 Senna/Docusate Sodium 1 TAB BID 04/28 1039 AC 05/03 PO 0932 Spironolactone 12.5 MG DAILY 05/01 1000 AC 05/03 PO 0931 Vital Signs & I&O Last 24 Hrs of Vitals and I&O: Vital Signs Date Time Temp Pulse Resp B/P B/P Pulse O2 O2 Flow FiO2 Mean Ox Delivery Rate 05/03 0933 162/92 05/03 0932 162/92 05/03 0932 162/92 05/03 0932 162/92 05/03 0931 162/92 05/03 0920 95 Nasal 5.0L Cannula 05/03 0800 90 Nasal 5.0L Cannula 05/03 0603 98.5 63 22 166/90 91 Nasal Cannula 05/03 0000 Nasal 5.0L Cannula 05/02 2239 98.3 77 20 142/80 93 Nasal 5.0L Cannula 05/02 2116 78 144/84 05/02 2043 94 Nasal 5.0L Cannula 05/02 1723 148/84 05/02 1600 90 Nasal 5.0L Cannula 05/02 1426 98.4 77 20 158/77 90 Intake & Output 05/03 1600 05/03 0800 05/03 0000 Intake Total Output Total 400 100 Balance -400 -100 Output, Urine 400 100 Physical Exam Deferred Results Last 24 Hrs of Lab Results: Laboratory Tests 05/03/17 0700: Anion Gap 12, Estimated GFR 19 L, BUN/Creatinine Ratio 19.2, CBC w Diff NO MAN DIFF REQ, RBC 2.56 L, MCV 89.9, MCH 29.0, RDW 15.6 H, MPV 8.7, Gran % 79.9 H, Lymphocytes % 7.9 L, Monocytes % 7.3, Eosinophils % 4.4, Basophils % 0.5, Absolute Granulocytes 9.1 H, Absolute Lymphocytes 0.9 L, Absolute Monocytes 0.8 H, Absolute Eosinophils 0.5, Absolute Basophils 0.1, PUBS MCHC 32.2 L Diagnostic Data CXR Findings: No appreciable change in the multilobar right-sided airspace disease 05/01/2017 chest x-ray. Impression/Plan Impression/Plan Impression/Plan: 1. Acute hypoxemic respiratory failure secondary to multilobar lobar pneumonia on the right side. 2. Possible TRALI. 3. Morbid obesity with possible obstructive sleep apnea. 4. Anemia of chronic disease, without evidence of active bleeding. 5. Significant back pain and gait instability with recent falls. 6. Pleuritic chest pain secondary to pleurisy. 7. Hypertension, hyperlipidemia and diabetes, followed by the primary care team. Recommendations: * Continue nebs, TRC. * Supplemental oxygen to be weaned down as tolerated. * Monitor off steroids. * Continue IV antibiotics (ceftriaxone and azithromycin), follow up culture results. * Continue oral Lasix/negative fluid balance. * Continue with pain control. * DVT prophylaxis at all times. * Continue all supportive care.
[2017-05-03 14:10] VITALS: BP 120/72
[2017-05-03 21:31] VITALS: BP 158/72
[2017-05-04 07:25] VITALS: BP 162/78
--- NOTE | 2017-05-04 07:30 | PN- Housestaff ---
LASHONDA SANDOVAL MD,CYNTHIA 05/04/17 0729: Subjective Follow-up For: Acute hypoxemic respiratory failure Community-acquired pneumonia Status post mechanical fall Acute Back pain Acute kidney injury on chronic kidney disease Acute on chronic anemia Complaints: no complaints Subjective: Patient fels better. Back pain has improved significantly. Patient is currently on 5 L of of nasal cannula saturating between 91-92%. Thursday patient was switched to nasal cannula from 40-45% of high flow oxygen. Review of Systems Constitutional: Denies: chills, fever. Cardiovascular: Denies: chest pain, palpitations. Respiratory: Reports: short of breath. Denies: cough. Gastrointestinal: Denies: abdominal pain, nausea, vomiting. Genitourinary: Denies: discharge. Musculoskeletal: Denies: back pain. Objective Last 24 Hrs of Vital Signs/I&O Vital Signs Date Time Temp Pulse Resp B/P B/P Pulse O2 O2 Flow FiO2 Mean Ox Delivery Rate 05/04 0725 98.4 74 18 162/78 92 05/04 0000 Nasal 5.0L Cannula 05/03 2141 82 158/72 05/03 2131 98.2 82 20 158/72 91 Nasal 5.0L Cannula 05/03 1915 92 Nasal 5.0L Cannula 05/03 1756 128/74 05/03 1600 91 Nasal 5.0L Cannula 05/03 1410 97.7 65 20 120/72 92 05/03 0933 162/92 05/03 0932 162/92 05/03 0932 162/92 05/03 0932 162/92 05/03 0931 162/92 05/03 0920 95 Nasal 5.0L Cannula 05/03 0800 90 Nasal 5.0L Cannula Intake & Output 05/04 0800 05/04 0000 05/03 1600 Intake Total 120 240 180 Output Total 750 600 750 Balance -630 -360 -570 Intake, Oral 120 240 180 Output, Urine 750 600 750 Physical Exam General Appearance: Alert, Oriented X3, Cooperative, Mild Distress HEENT: Atraumatic Cardiovascular: Regular Rate, Normal S1, Normal S2 Lungs: Decreased air entry at the lung bases Abdomen: Normal Bowel Sounds, Soft, No Tenderness Neurological: Normal Speech, Normal Tone, Sensation Intact Extremities: No Edema Vascular: Normal Pulses Current Medications: Current Medications Sig/Duong Start time Last Medication Dose Route Stop Time Status Admin Acetaminophen 975 MG Q8P PRN 04/25 1100 AC 04/29 PO 0257 Acetaminophen 1,000 MG Q6P PRN 04/24 1045 AC 04/24 N/A 1 UNIT IV 1820 Albuterol Sulfate 3 ML BID 04/28 1315 AC 05/03 INH 1912 Amlodipine Besylate 10 MG DAILY 05/03 1000 AC 05/03 PO 0932 Atorvastatin Calcium 40 MG 1700 04/24 1700 AC 05/03 PO 1756 Azithromycin 500 MG DAILY 04/27 1515 DC 05/03 Sodium Chloride 250 ML IV 0931 Ceftriaxone Sodium 1,000 MG DAILY 04/27 1515 AC 05/03 IV 0931 Doxazosin Mesylate 1 MG DAILY 04/24 1245 AC 05/03 PO 0932 Epoetin Ld 20,000 UNITS Q336 04/29 1700 AC 04/29 SC 1947 Famotidine 20 MG Q48 04/27 1000 AC 05/03 PO 0932 Ferrous Sulfate 325 MG DAILY 04/24 1143 AC 05/03 PO 0932 Furosemide 80 MG Q48 05/03 1000 AC 05/03 PO 0932 Furosemide 40 MG Q48 05/02 1000 AC 05/02 PO 0930 Hydralazine HCl 100 MG TID 04/24 1600 AC 05/03 PO 2141 Isosorbide 60 MG DAILY 04/24 1144 AC 05/03 Mononitrate PO 0932 Lidocaine 1 PAT DAILY 04/26 1015 AC 05/01 EXT 0902 Lidocaine 1 PAT DAILY 04/25 1030 AC 05/03 EXT 0933 Losartan Potassium 50 MG DAILY 04/24 1237 AC 05/03 PO 0933 Morphine Sulfate 1 MG Q4P PRN 04/24 0930 AC 05/01 IV 1436 Nebivolol 5 MG DAILY 04/24 1144 AC 05/03 PO 0931 Oxycodone HCl 5 MG Q6P PRN 04/24 0930 AC 05/04 PO 0046 Polyethylene Glycol 17 GM DAILY 04/28 1039 AC 05/03 PO 0931 Potassium Chloride 10 MEQ DAILY 04/24 1144 AC 05/03 PO 0931 Senna/Docusate Sodium 1 TAB BID 04/28 1039 AC 05/03 PO 2141 Spironolactone 12.5 MG DAILY 05/01 1000 AC 05/03 PO 0931 Lines/Diet/Fluids Lines: peripheral lines Restraints: none Assessment/Plan Assessment: Patient is a 76 y/o F with PMHx of uncontrolled HTN, HLD, T2DM, chronic anemia, CKD stage III, chronic venous insufficiency and 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 She is being managed for intractable back pain and acute on chronic renal insufficiency. Acute hypoxemic respiratory failure Likely secondary to volume overload secondary to blood transfusion or worsening of pneumonia swallow evaluation negative for aspiration Continue with the current antibiotics for now PA and lateral chest x-ray done yesterday showed no preceding change in the multilobar right-sided airspace disease from 05/01/2017 Taper oxygen as tolerated Multilobar Community-acquired pneumonia Patient's oxygen requirement increased from baseline Patient remained afebrile overnight CXR showed Right upper lobe lung field opacity concerning for developing infiltrate and or atelectasis. WBC 11.3---> 12.8----> 11.5----> 11.4----> Pending Patient was pancultured with cultures, lower respiratory cultures and urine culture Legionella and strep antigen negative Patient on IV ceftriaxone day 8, consider switching to by mouth antibiotics Azithromycin discontinued after receving greater than 7 days of azithromycin TR nebs Intractable Back Pain and Gait Instability after mechanical fall at home. Patient denied hitting her head after a fall. No acute fracture noted on lumbar X-ray (h/o old L1 fx) CT and MRI of lumbar spine show no acute fractures, but showed degenerative changes, spondylosis and foraminal canal narrowing PT recommend rehab placement Will follow-up with physical therapy to reassess if pain is improved tomorrow On Lidocaine patch for back pain daily Continue IV tylenol and PO Oxycodone for pain Acute on Chronic Renal Failure Cr improved from 3 to 2.5---current pending (Baseline around 2.3) Nephrology following Patient was restarted on 40 mg every 48 and 80 mg every 48 alternatively of by mouth Lasix as per nephrology recommendations Contiunue spironolactone today Re-assess renal function tomorrow morning with BEP No IV fluids per Nephrology Patient started on erythropoietin as per recommendations of nephrology Given patient's history of ? MGUS, and now in acute on chronic renal failure with intractable back pain, we are concerned for transformation of her MGUS into Myeloma Awaiting serum free light chains (quantification) as requested by nephrology and SPEP, IPEP. Acute and chronic anemia Multifactorial in origin, anemia of chronic disease loss iron deficiency anemia indicated increased RDW Patient did have a recent (03/25) colonoscopy and polypectomies No history of blood per rectum. Suspect large component of her anemia is due to renal failure. GI consult (Dr. Souza) appreciated. Hemoglobin today pending Continue iron supplementation Heme Onc Consult NITHIN on CPAP Patient uses CPAP at night at home and this may be contributing to her low O2 sats overnight She was counselled to tell her son to bring her CPAP machine from home so she can use it in hospital HTN Continue Bystolic , Hydralazine, Amlodipine, losartan (Olmesartan equivalent). Continue spironolactone CAD Continue Isosorbide/ASA. Hyperlipidemia Continue Statin. DVT/Prophylaxis: mechanical Patient is full code Patient is on pain management Patient is on CHF diet Problem List: 1. Acute hypoxemic respiratory failure 2. Community acquired pneumonia 3. Anemia 4. Symptomatic anemia Pain Ratin Pain Location: Back Pain Goal: Pain 4 or less Pain Plan: Continue current pain management Tomorrow's Labs & Rationales: CBC for leukocytosis BEP for renal function DVT/Prophylaxis: mechanical Consulting Request: Consulting Specialty: Pulmonary Disease BENNY POWELL 05/04/17 0915: Attending MD Review Statement Attending Statement Attending MD Statement: examined this patient, discuss w/resident/PA/SYS DIR, agreed w/resident/PA/SYS DIR, discussed with family, reviewed EMR data (avail), discussed with nursing, discussed with case mgmt, reviewed images, amended to note Attending Assessment/Plan: ASSESSMENT 1. S/p Mechanical fall 2. acute back pain 3. PATO on CKD 4. Acute on chronic anemia 5. Anemia multifactorial (AOCD+ component of fe defeciency) 6. hypertension 7. HFpEF 65% 8. r/o multiple myeloma ?MGUS 9. Community acquired pneumonia 10 Acute hypoxemic respiratory failure. (patient received transfusion). PLAN Admit to inpatient medical services change to PO abx complete for 10 days, oxygen supplementation, f/u blood cultures negative so far, sputum. nephrology following diuretics restarted lasix use as per nephro, bp managmenet as per nephro, ARB use as per nephro. Anemia s/p 2 unit of PRBC, cont supportive care, Fe tabs, hem appreciate. GI recommends o/p pill cam study. f/u GI as o/p. bp controlled. PT consult STR, fall precautions gi/dvt prophyalxis full code d/c planning anticipated.
[2017-05-04 09:25] LABS: ABSOLUTE BASOPHIL COUNT 0 /CUMM (0.0-0.2); ABSOLUTE EOSINOPHIL COUNT 0.5 /CUMM (0.0-0.7); ABSOLUTE GRANULOCYTE CT 9.2 /CUMM (1.4-6.5); ABSOLUTE LYMPH COUNT 1.1 /CUMM (1.2-3.4); ABSOLUTE MONOCYTE COUNT 0.8 /CUMM (0.10-0.60); BASOPHIL % 0.4 % (0.0-2.0); EOSINOPHIL % 4.3 % (0-5); GRANULOCYTE % 78.7 % (42.2-75.2); HEMATOCRIT 24.5 % (37-47); MEAN CORPUSCULAR HGB 28.6 PG (27.0-31.0); MEAN CORPUSCULAR HGB CONC 31.8 G/DL (33.0-37.0); MEAN CORPUSCULAR VOLUME 89.8 FL (81.0-99.0); MEAN PLATELET VOLUME 8.3 FL (7.4-10.4); PLATELET COUNT 407 /CUMM (130-400); RBC DISTRIBUTION WIDTH 15.6 % (11.5-14.5); RED BLOOD CELL CT 2.73 /CUMM (4.20-5.40); WHITE BLOOD CELL COUNT 11.7 /CUMM (4.8-10.8)
--- NOTE | 2017-05-04 10:34 | PN- Hematology ---
Subjective Subjective: Pain is a little better. She has a little bit more energy today. Review of Systems: Constitutional: Denies: chills, fever. Cardiovascular: Denies: chest pain. Respiratory: Reports: short of breath. Denies: cough. Gastrointestinal: Denies: abdominal pain. Genitourinary: Denies: dysuria. Musculoskeletal: Reports: back pain, improved. Hematologic/Endocrine: Denies: bruising, bleeding. All Other Systems: Reviewed and Negative Objective Vital Signs and I&Os Vital Signs Date Time Temp Pulse Resp B/P B/P Pulse O2 O2 Flow FiO2 Mean Ox Delivery Rate 05/04 0800 93 Nasal 5.0L Cannula 05/04 0725 98.4 74 18 162/78 92 05/04 0000 Nasal 5.0L Cannula 05/03 2141 82 158/72 05/03 2131 98.2 82 20 158/72 91 Nasal 5.0L Cannula 05/03 1915 92 Nasal 5.0L Cannula 05/03 1756 128/74 05/03 1600 91 Nasal 5.0L Cannula 05/03 1410 97.7 65 20 120/72 92 Intake & Output 05/04 1600 05/04 0800 05/04 0000 05/03 1600 05/03 0800 05/03 0000 Intake Total 120 240 180 Output Total 750 600 750 400 100 Balance -630 -360 -570 -400 -100 Intake, Oral 120 240 180 Output, Urine 750 600 750 400 100 Physical Exam: General Appearance: no apparent distress, comfortable, obese, on HF oxygen Respiratory: chest non-tender, quiet respiration, decreased breath sounds (at bases) Cardiovascular: regular rate/rhythm Gastrointestinal: normal bowel sounds, soft, non-tender, obese Extremities: pedal edema (1+) Lymphatic: no anterior cervical farzana Current Medications: Current Medications Sig/Duong Start time Last Medication Dose Route Stop Time Status Admin Acetaminophen 975 MG Q8P PRN 04/25 1100 AC 04/29 PO 0257 Acetaminophen 1,000 MG Q6P PRN 04/24 1045 AC 04/24 N/A 1 UNIT IV 1820 Albuterol Sulfate 3 ML BID 04/28 1315 AC 05/03 INH 1912 Amlodipine Besylate 10 MG DAILY 05/03 1000 AC 05/03 PO 0932 Atorvastatin Calcium 40 MG 1700 04/24 1700 AC 05/03 PO 1756 Azithromycin 500 MG DAILY 04/27 1515 DC 05/03 Sodium Chloride 250 ML IV 0931 Ceftriaxone Sodium 1,000 MG DAILY 04/27 1515 DC 05/03 IV 0931 Doxazosin Mesylate 1 MG DAILY 04/24 1245 AC 05/03 PO 0932 Epoetin Ld 20,000 UNITS Q336 04/29 1700 AC 04/29 SC 1947 Famotidine 20 MG Q48 04/27 1000 AC 05/03 PO 0932 Ferrous Sulfate 325 MG DAILY 04/24 1143 AC 05/03 PO 0932 Furosemide 80 MG Q48 05/03 1000 AC 05/03 PO 0932 Furosemide 40 MG Q48 05/02 1000 AC 05/02 PO 0930 Hydralazine HCl 100 MG TID 04/24 1600 AC 05/03 PO 2141 Isosorbide 60 MG DAILY 04/24 1144 AC 05/03 Mononitrate PO 0932 Lidocaine 1 PAT DAILY 04/26 1015 AC 05/01 EXT 0902 Lidocaine 1 PAT DAILY 04/25 1030 05/03 EXT 0933 Losartan Potassium 50 MG DAILY 04/24 1237 AC 05/03 PO 0933 Morphine Sulfate 1 MG Q4P PRN 04/24 0930 AC 05/01 IV 1436 Moxifloxacin HCl 400 MG DAILY 05/04 1000 AC PO Nebivolol 5 MG DAILY 04/24 1144 AC 05/03 PO 0931 Oxycodone HCl 5 MG Q6P PRN 04/24 0930 AC 05/04 PO 0046 Polyethylene Glycol 17 GM DAILY 04/28 1039 05/03 PO 0931 Potassium Chloride 10 MEQ DAILY 04/24 1144 05/03 PO 0931 Senna/Docusate Sodium 1 TAB BID 04/28 1039 05/03 PO 2141 Spironolactone 12.5 MG DAILY 05/01 1000 AC 05/03 PO 0931 Results Last 24 Hours of Lab Results: Laboratory Tests 05/04 0820 Chemistry Sodium (137 - 145 mmol/L) 145 Potassium (3.5 - 5.1 mmol/L) 4.0 Chloride (98 - 107 mmol/L) 106 Carbon Dioxide (22 - 30 mmol/L) 26 Anion Gap (5 - 16) 13 BUN (7 - 17 mg/dL) 44 H Creatinine (0.5 - 1.0 mg/dL) 2.4 H Estimated GFR (>60 ml/min) 20 L BUN/Creatinine Ratio (7 - 25 %) 18.3 Hematology CBC w Diff NO MAN DIFF REQ WBC (4.8 - 10.8 /CUMM) 11.7 H RBC (4.20 - 5.40 /CUMM) 2.73 L Hgb (12.0 - 16.0 G/DL) 7.8 L Hct (37 - 47 %) 24.5 L MCV (81.0 - 99.0 FL) 89.8 MCH (27.0 - 31.0 PG) 28.6 RDW (11.5 - 14.5 %) 15.6 H Plt Count (130 - 400 /CUMM) 407 H MPV (7.4 - 10.4 FL) 8.3 Gran % (42.2 - 75.2 %) 78.7 H Lymphocytes % (20.5 - 51.1 %) 9.6 L Monocytes % (1.7 - 9.3 %) 7.0 Eosinophils % (0 - 5 %) 4.3 Basophils % (0.0 - 2.0 %) 0.4 Absolute Granulocytes (1.4 - 6.5 /CUMM) 9.2 H Absolute Lymphocytes (1.2 - 3.4 /CUMM) 1.1 L Absolute Monocytes (0.10 - 0.60 /CUMM) 0.8 H Absolute Eosinophils (0.0 - 0.7 /CUMM) 0.5 Absolute Basophils (0.0 - 0.2 /CUMM) 0 PUBS MCHC (33.0 - 37.0 G/DL) 31.8 L Assessment/Plan Assessment/Recommendations: Ms. 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 On admission, she had back pain and worsening anemia and renal dysfunction. Her creatinine has been around 1.9 to 2.4 for the last few years. On presentation, her creatinine has increased to 3.0. Her anemia has been running from 7.3 to 10.7 for at least 5 years. MGUS diagnosis is unclear. She has had normal SPEP and UPEP previously. Her calcium is normal. She has no noted protein gap. SPEP and immunofixation is negative. This makes MGUS unlikely. Renal function seems to be improving. Anemia is stable with slight improving. This may be related to improving renal function. She may benefit from TRACEY support with her anemia which is most likely secondary to renal disease. Consider giving patient darbepoetin given persistent anemia. Recommendations: 1. Send UPEP (? canceled) 2. Consider TRACEY therapy - darbepoetin 3. Nephrology recommendations on CKD Please call [phone] with any questions or concerns. Problem List: 1. Community acquired pneumonia 2. CAD (coronary artery disease) 3. Acute on chronic renal insufficiency 4. Anemia
--- NOTE | 2017-05-04 10:43 | NUR ---
PT WISHED TO AMBULATE TO BATHROOM WITHOUT OXYGEN. PT DESAT TO 82% ON ROOM AIR WHILE AMBULATING TO BATHROOM. PLACED BACK ON 5L NC. WILL MONITOR.
[2017-05-04 14:19] VITALS: BP 150/72
--- NOTE | 2017-05-04 18:54 | PN- Pulmonary ---
Subjective HPI/Critical Care Issues: Patient fels better. Back pain has improved significantly. Patient is currently on 5 L of of nasal cannula saturating between 91-92%. Thursday patient was switched to nasal cannula from 40-45% of high flow oxygen. Review of Systems Constitutional: Denies: chills, fever. Cardiovascular: Denies: chest pain, palpitations. Respiratory: Reports: short of breath. Denies: cough. Gastrointestinal: Denies: abdominal pain, nausea, vomiting. Genitourinary: Denies: discharge. Musculoskeletal: Denies: back pain. Objective Current Medications: Current Medications Sig/Duong Start time Last Medication Dose Route Stop Time Status Admin Acetaminophen 975 MG Q8P PRN 04/25 1100 AC 04/29 PO 0257 Acetaminophen 1,000 MG Q6P PRN 04/24 1045 AC 04/24 N/A 1 UNIT IV 1820 Albuterol Sulfate 3 ML BID 04/28 1315 AC 05/04 INH 1042 Amlodipine Besylate 10 MG DAILY 05/03 1000 AC 05/04 PO 1111 Atorvastatin Calcium 40 MG 1700 04/24 1700 AC 05/04 PO 1537 Ceftriaxone Sodium 1,000 MG DAILY 04/27 1515 DC 05/03 IV 0931 Doxazosin Mesylate 1 MG DAILY 04/24 1245 AC 05/04 PO 1112 Epoetin Ld 20,000 UNITS Q336 04/29 1700 AC 04/29 SC 1947 Famotidine 20 MG Q48 04/27 1000 AC 05/03 PO 0932 Ferrous Sulfate 325 MG DAILY 04/24 1143 AC 05/04 PO 1112 Furosemide 80 MG Q48 05/03 1000 AC 05/03 PO 0932 Furosemide 40 MG Q48 05/02 1000 AC 05/04 PO 1111 Hydralazine HCl 100 MG TID 04/24 1600 AC 05/04 PO 1537 Isosorbide 60 MG DAILY 04/24 1144 AC 05/04 Mononitrate PO 1112 Lidocaine 1 PAT DAILY 04/26 1015 AC 05/01 EXT 0902 Lidocaine 1 PAT DAILY 04/25 1030 AC 05/04 EXT 1110 Losartan Potassium 50 MG DAILY 04/24 1237 AC 05/04 PO 1112 Morphine Sulfate 1 MG Q4P PRN 04/24 0930 AC 05/01 IV 1436 Moxifloxacin HCl 400 MG DAILY 05/04 1000 AC 05/04 PO 1109 Nebivolol 5 MG DAILY 04/24 1144 AC 05/04 PO 1111 Oxycodone HCl 5 MG Q6P PRN 04/24 0930 05/04 PO 0046 Patient Medication 1 ED .STK-MED ONE 05/04 1359 RI Teaching ED 05/04 1400 Polyethylene Glycol 17 GM DAILY 04/28 1039 05/04 PO 1111 Potassium Chloride 10 MEQ DAILY 04/24 1144 AC 05/04 PO 1111 Senna/Docusate Sodium 1 TAB BID 04/28 1039 05/04 PO 1113 Spironolactone 12.5 MG DAILY 05/01 1000 AC 05/04 PO 1109 Vital Signs & I&O Last 24 Hrs of Vitals and I&O: Vital Signs Date Time Temp Pulse Resp B/P B/P Pulse O2 O2 Flow FiO2 Mean Ox Delivery Rate 05/04 1600 Nasal 4.0L Cannula 05/04 1537 74 140/80 05/04 1419 98.7 69 18 150/72 92 05/04 1203 Room Air 05/04 1112 88 135/72 05/04 1112 88 135/72 05/04 1112 88 135/72 05/04 1111 88 135/72 05/04 1111 88 135/72 05/04 1050 94 Nasal 5.0L Cannula 05/04 0800 93 Nasal 5.0L Cannula 05/04 0725 98.4 74 18 162/78 92 05/04 0000 Nasal 5.0L Cannula 05/03 2141 82 158/72 05/03 2131 98.2 82 20 158/72 91 Nasal 5.0L Cannula 05/03 1915 92 Nasal 5.0L Cannula Intake & Output 05/04 1600 05/04 0800 05/04 0000 Intake Total 780 120 240 Output Total 150 750 600 Balance 630 -630 -360 Intake, Oral 780 120 240 Output, Urine 150 750 600 Impression/Plan Impression/Plan Impression/Plan: CT chest IMPRESSION: 1. Right upper and right lower lobe consolidation consistent with pneumonia. 2. No evidence of a discrete pulmonary mass or adenopathy. 3. Patent tracheobronchial tree. DICTATED BY: CHEYANNE CHANCE MD DATE/TIME DICTATED:04/28/17 / 1342 Physical Exam General Appearance: Alert, Oriented X3, Cooperative, Mild Distress HEENT: Atraumatic Neck: Supple Cardiovascular: Regular Rate, Normal S1, Normal S2 Lungs: OVERALL DECREASED AIR ENTRY AT THE LUNG BASES,. wheezing noted bilaterally Abdomen: Normal Bowel Sounds, Soft, No Tenderness Neurological: Normal Speech, Normal Tone, Sensation Intact Extremities: BILATERAL TRACE EXTREMITY EDEMA IMPRESSION This is a 76-year-old lady with hypertension, hyperlipidemia, type 2 diabetes, chronic significant anemia, worsening chronic kidney diseasestage III versus 4, chronic venous insufficiency, diastolic dysfunction with previous heart failure, recurrent mechanical fall at home, probable neuropathy, recent colonoscopy with no malignancy with multiple polyps removed, significant lumbosacral degeneration with chronic L1 fracture, chronic low back pain, normocytic anemia, chronic lower extremity edema, now has * Improving Acute hypoxemic respiratory failure related to significant pneumonia multi lobar in the right side with pleurisy now complicated by bilateral pulmonary infiltrates after she has received blood transfusion suggestive of acute lung injury probably from transfusion versus worsening pneumonia * Significant community-acquired pneumonia in a lady with previous history of C. difficile with previous history of some some dysfunction of her immunoglobulins. No previous history of Pseudomonas. High risk for decompensation * Morbid obesity with signs and symptoms suggestive of obstructive sleep apnea but patient is not hypercarbic * Anemia of chronic disease which is now made worse by renal failure followed by hematology at this time * Significant back pain and gait instability with recent fall aswell rule out significant neuropathy probably from diabetes, compounded by significant degenerative joint and disc disease in the lumbosacral area with L5 nerve root involvement in the left with right foraminal stenosis. * Pleuritic chest pain due to pleurisy * L1 fracture which appears to be chronic * Aneurysmal dilatation of aorta noted in the MRI * Hypertension, hyperlipidemia, diabetes relatively stable at this time * Chronic venous insufficiency with lower extremity edema * Significant diastolic dysfunction of the heart with previous history of heart failure probably now fluid overloaded after blood transfusion RECOMMENDATION * wean down oxygen * moxifloxacin, continue diuretic, adequate sugar management, watch hematocrit. * Strict I's and O's he is stable patient was required to go to the rehabilitation facility will follow up with her closely
[2017-05-05 05:49] VITALS: BP 130/72
--- NOTE | 2017-05-05 07:17 | PN- Housestaff ---
LASHONDA SANDOVAL MD,CYNTHIA 05/05/17 0717: Subjective Follow-up For: Acute hypoxemic respiratory failure Community-acquired pneumonia Status post mechanical fall Acute Back pain Acute kidney injury on chronic kidney disease Acute on chronic anemia Complaints: no complaints Subjective: Patient is currently on 4 L of of nasal cannula saturating between 94-92%. No acute episodes of chest pain or shortness of breath. Thursday patient was switched to nasal cannula from 40-45% of high flow oxygen. Review of Systems Constitutional: Denies: chills, fever. EENTM: Denies: visual changes. Cardiovascular: Denies: chest pain, palpitations. Respiratory: Reports: short of breath. Denies: cough. Gastrointestinal: Denies: abdominal pain, nausea, vomiting. Genitourinary: Denies: dysuria. Objective Last 24 Hrs of Vital Signs/I&O Vital Signs Date Time Temp Pulse Resp B/P B/P Pulse O2 O2 Flow FiO2 Mean Ox Delivery Rate 05/05 0549 98.5 77 18 130/72 94 Nasal Cannula 05/05 0000 92 Nasal 4.0L Cannula 05/04 2113 74 138/60 05/04 1945 92 Nasal 4.0L Cannula 05/04 1600 Nasal 4.0L Cannula 05/04 1537 74 140/80 05/04 1419 98.7 69 18 150/72 92 05/04 1203 Room Air 05/04 1112 88 135/72 05/04 1112 88 135/72 05/04 1112 88 135/72 05/04 1111 88 135/72 05/04 1111 88 135/72 05/04 1050 94 Nasal 5.0L Cannula 05/04 0800 93 Nasal 5.0L Cannula 05/04 0725 98.4 74 18 162/78 92 Intake & Output 05/05 0800 05/05 0000 05/04 1600 Intake Total 100 700 780 Output Total 350 150 Balance -250 700 630 Intake, Oral 100 700 780 Number 0 4 Bowel Movements Output, Urine 350 150 Physical Exam General Appearance: Alert, Oriented X3, Cooperative, Mild Distress Skin: No Rashes HEENT: Atraumatic Neck: No JVD Cardiovascular: Regular Rate, Normal S1, Normal S2 Lungs: Decreased air entry at the lung bases Abdomen: Normal Bowel Sounds, Soft, No Tenderness Neurological: Normal Speech, Normal Tone, Sensation Intact Extremities: No Clubbing, No Cyanosis Current Medications: Current Medications Sig/Duong Start time Last Medication Dose Route Stop Time Status Admin Acetaminophen 975 MG Q8P PRN 04/25 1100 AC 04/29 PO 0257 Acetaminophen 1,000 MG Q6P PRN 04/24 1045 AC 04/24 N/A 1 UNIT IV 1820 Albuterol Sulfate 3 ML BID 04/28 1315 AC 05/04 INH 1945 Amlodipine Besylate 10 MG DAILY 05/03 1000 05/04 PO 1111 Atorvastatin Calcium 40 MG 1700 04/24 1700 AC 05/04 PO 1537 Ceftriaxone Sodium 1,000 MG DAILY 04/27 1515 DC 05/03 IV 0931 Doxazosin Mesylate 1 MG DAILY 04/24 1245 AC 05/04 PO 1112 Epoetin Ld 20,000 UNITS Q336 04/29 1700 04/29 SC 1947 Famotidine 20 MG Q48 04/27 1000 05/03 PO 0932 Ferrous Sulfate 325 MG DAILY 04/24 1143 05/04 PO 1112 Furosemide 80 MG Q48 05/03 1000 AC 05/03 PO 0932 Furosemide 40 MG Q48 05/02 1000 AC 05/04 PO 1111 Hydralazine HCl 100 MG TID 04/24 1600 AC 05/04 PO 2113 Isosorbide 60 MG DAILY 04/24 1144 AC 05/04 Mononitrate PO 1112 Lidocaine 1 PAT DAILY 04/26 1015 05/01 EXT 0902 Lidocaine 1 PAT DAILY 04/25 1030 05/04 EXT 1110 Losartan Potassium 50 MG DAILY 04/24 1237 AC 05/04 PO 1112 Morphine Sulfate 1 MG Q4P PRN 04/24 0930 05/01 IV 1436 Moxifloxacin HCl 400 MG DAILY 05/04 1000 AC 05/04 PO 1109 Nebivolol 5 MG DAILY 04/24 1144 05/04 PO 1111 Oxycodone HCl 5 MG Q6P PRN 04/24 0930 05/04 PO 2251 Patient Medication 1 ED .STK-MED ONE 05/04 1359 DC Teaching ED 05/04 1400 Polyethylene Glycol 17 GM DAILY 04/28 1039 05/04 PO 1111 Potassium Chloride 10 MEQ DAILY 04/24 1144 05/04 PO 1111 Senna/Docusate Sodium 1 TAB BID 04/28 1039 AC 05/04 PO 2113 Spironolactone 12.5 MG DAILY 05/01 1000 AC 05/04 PO 1109 Last 24 Hrs of Lab/Ray Results Last 24 Hrs of Labs/Mics: Laboratory Tests 05/04/17 0820: Anion Gap 13, Estimated GFR 20 L, BUN/Creatinine Ratio 18.3, CBC w Diff NO MAN DIFF REQ, RBC 2.73 L, MCV 89.8, MCH 28.6, RDW 15.6 H, MPV 8.3, Gran % 78.7 H, Lymphocytes % 9.6 L, Monocytes % 7.0, Eosinophils % 4.3, Basophils % 0.4, Absolute Granulocytes 9.2 H, Absolute Lymphocytes 1.1 L, Absolute Monocytes 0.8 H, Absolute Eosinophils 0.5, Absolute Basophils 0, PUBS MCHC 31.8 L Lines/Diet/Fluids Restraints: none Assessment/Plan Assessment: Patient is a 76 y/o F with PMHx of uncontrolled HTN, HLD, T2DM, chronic anemia, CKD stage III, chronic venous insufficiency and 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 She is being managed for intractable back pain and acute on chronic renal insufficiency. Acute hypoxemic respiratory failure Likely secondary to volume overload secondary to blood transfusion or worsening of pneumonia swallow evaluation negative for aspiration Continue with the current antibiotics for now PA and lateral chest x-ray done showed no preceding change in the multilobar right-sided airspace disease from 05/01/2017 Taper oxygen as tolerated Multilobar Community-acquired pneumonia Patient's oxygen requirement increased from baseline Patient remained afebrile overnight CXR showed Right upper lobe lung field opacity concerning for developing infiltrate and or atelectasis. WBC 11.3---> 12.8----> 11.5----> 11.4--- 11.7 ---> Pending Patient was pancultured with cultures, lower respiratory cultures and urine culture Legionella and strep antigen negative IV ceftriaxone and azithromycin were switched to Avelox yesterday. TRC nebs Intractable Back Pain and Gait Instability after mechanical fall at home. Patient denied hitting her head after a fall. No acute fracture noted on lumbar X-ray (h/o old L1 fx) CT and MRI of lumbar spine show no acute fractures, but showed degenerative changes, spondylosis and foraminal canal narrowing PT recommend rehab placement Will follow-up with physical therapy to reassess if pain is improved tomorrow On Lidocaine patch for back pain daily Continue IV tylenol and PO Oxycodone for pain Acute on Chronic Renal Failure Cr improved from 3 to 2.5---current pending (Baseline around 2.3) Nephrology following Patient was restarted on 40 mg every 48 and 80 mg every 48 alternatively of by mouth Lasix as per nephrology recommendations Contiunue spironolactone today Re-assess renal function tomorrow morning with BEP No IV fluids per Nephrology Patient started on erythropoietin as per recommendations of nephrology Given patient's history of ? MGUS, and now in acute on chronic renal failure with intractable back pain, we are concerned for transformation of her MGUS into Myeloma Awaiting serum free light chains (quantification) as requested by nephrology and SPEP, IPEP. Acute and chronic anemia Multifactorial in origin, anemia of chronic disease loss iron deficiency anemia indicated increased RDW Patient did have a recent (03/25) colonoscopy and polypectomies No history of blood per rectum. Suspect large component of her anemia is due to renal failure. GI consult (Dr. Souza) appreciated. Hemoglobin today pending Continue iron supplementation Heme Onc Consult NITHIN on CPAP Patient uses CPAP at night at home and this may be contributing to her low O2 sats overnight She was counselled to tell her son to bring her CPAP machine from home so she can use it in hospital HTN Continue Bystolic , Hydralazine, Amlodipine, losartan (Olmesartan equivalent). Continue spironolactone CAD Continue Isosorbide/ASA. Hyperlipidemia Continue Statin. DVT/Prophylaxis: mechanical Patient is full code Patient is on pain management Patient is on CHF diet Problem List: 1. Acute hypoxemic respiratory failure 2. Community acquired pneumonia 3. Anemia Pain Ratin Pain Location: Back Pain Goal: Pain 4 or less Pain Plan: Continue current pain management Tomorrow's Labs & Rationales: CBC for leukocytosis BEP for renal function DVT/Prophylaxis: mechanical Consulting Request: Consulting Specialty: Pulmonary Disease BENNY POWELL 05/05/17 0909: Attending Review Statement Attending Statement Attending MD Statement: examined this patient, discuss w/resident/PA/ANNEALING TORCH OPERATOR, agreed w/resident/PA/ANNEALING TORCH OPERATOR, discussed with family, reviewed EMR data (avail), discussed with nursing, discussed with case mgmt, reviewed images, amended to note Attending Assessment/Plan: ASSESSMENT 1. S/p Mechanical fall 2. acute back pain better 3. PATO on CKD improving 4. Acute on chronic anemia 5. Anemia multifactorial (AOCD+ component of fe defeciency) 6. hypertension 7. HFpEF 65% 8. r/o multiple myeloma ?MGUS 9. Community acquired pneumonia improved 10 Acute hypoxemic respiratory failure. (patient received transfusion). PLAN Admit to inpatient medical services changed to PO abx complete for 10 days, oxygen supplementation, add lactobacillus at d/c. f/u blood cultures negative so far, sputum. nephrology following diuretics restarted lasix use as per nephro, bp managmenet as per nephro, ARB use as per nephro. Anemia s/p 2 unit of PRBC and TRACEY, cont supportive care, Fe tabs, hem appreciate. GI recommends o/p pill cam study. f/u GI as o/p. bp controlled. PT consult STR, fall precautions. gi/dvt prophyalxis full code repeat chest xray as o/p in few weeks. d/c planning anticipated.
[2017-05-05 08:34] LABS: ABSOLUTE BASOPHIL COUNT 0 /CUMM (0.0-0.2); ABSOLUTE LYMPH COUNT 1.2 /CUMM (1.2-3.4); ABSOLUTE MONOCYTE COUNT 0.9 /CUMM (0.10-0.60); BASOPHIL % 0.4 % (0.0-2.0); MEAN CORPUSCULAR HGB 28.6 PG (27.0-31.0); MEAN PLATELET VOLUME 8.3 FL (7.4-10.4)
[2017-05-05 08:38] LABS: ABSOLUTE EOSINOPHIL COUNT 0.4 /CUMM (0.0-0.7); ABSOLUTE GRANULOCYTE CT 8.3 /CUMM (1.4-6.5); EOSINOPHIL % 3.7 % (0-5); GRANULOCYTE % 76.6 % (42.2-75.2); HEMATOCRIT 22.1 % (37-47); MEAN CORPUSCULAR VOLUME 89.5 FL (81.0-99.0); PLATELET COUNT 397 /CUMM (130-400); RBC DISTRIBUTION WIDTH 15.5 % (11.5-14.5); RED BLOOD CELL CT 2.47 /CUMM (4.20-5.40); WHITE BLOOD CELL COUNT 10.9 /CUMM (4.8-10.8)
--- NOTE | 2017-05-05 09:34 | PN- Hematology ---
Subjective Subjective: She continues to have chest pain and back pain. She continues use oxygen at 4L. Breathing is stable. Review of Systems: Constitutional: Denies: chills, fever. Cardiovascular: Reports: chest pain. Respiratory: Reports: short of breath. Denies: cough. Gastrointestinal: Denies: abdominal pain. Genitourinary: Denies: dysuria. Musculoskeletal: Reports: back pain, persistent. Hematologic/Endocrine: Denies: bruising, bleeding. All Other Systems: Reviewed and Negative Objective Vital Signs and I&Os Vital Signs Date Time Temp Pulse Resp B/P B/P Pulse O2 O2 Flow FiO2 Mean Ox Delivery Rate 05/05 0903 130/70 05/05 0902 130/70 05/05 0902 130/70 05/05 0902 130/70 05/05 0901 130/70 05/05 0549 98.5 77 18 130/72 94 Nasal Cannula 05/05 0000 92 Nasal 4.0L Cannula 05/04 2113 74 138/60 05/04 1945 92 Nasal 4.0L Cannula 05/04 1600 Nasal 4.0L Cannula 05/04 1537 74 140/80 05/04 1419 98.7 69 18 150/72 92 05/04 1203 Room Air 05/04 1112 88 135/72 05/04 1112 88 135/72 05/04 1112 88 135/72 05/04 1111 88 135/72 05/04 1111 88 135/72 05/04 1050 94 Nasal 5.0L Cannula Intake & Output 05/05 1600 05/05 0800 05/05 0000 05/04 1600 05/04 0800 05/04 0000 Intake Total 100 700 780 120 240 Output Total 400 350 150 750 600 Balance -400 -250 700 630 -630 -360 Intake, Oral 100 700 780 120 240 Number 0 4 Bowel Movements Output, Urine 400 350 150 750 600 Physical Exam: General Appearance: no apparent distress, comfortable, obese, on 4L oxygen Respiratory: chest tender to palpation on right anterior, quiet respiration, decreased breath sounds (at bases) Cardiovascular: regular rate/rhythm Gastrointestinal: normal bowel sounds, soft, non-tender, obese Extremities: pedal edema (1+) Lymphatic: no anterior cervical farzana Current Medications: Current Medications Sig/Duong Start time Last Medication Dose Route Stop Time Status Admin Acetaminophen 975 MG Q8P PRN 04/25 1100 AC 04/29 PO 0257 Acetaminophen 1,000 MG Q6P PRN 04/24 1045 AC 04/24 N/A 1 UNIT IV 1820 Albuterol Sulfate 3 ML BID 04/28 1315 AC 05/04 INH 1945 Amlodipine Besylate 10 MG DAILY 05/03 1000 AC 05/05 PO 0903 Atorvastatin Calcium 40 MG 1700 04/24 1700 AC 05/04 PO 1537 Doxazosin Mesylate 1 MG DAILY 04/24 1245 AC 05/05 PO 0902 Epoetin Liberty 20,000 UNITS ONCE ONE 05/05 0930 UNVr SC 05/05 0931 Epoetin Liberty 20,000 UNITS Q336 04/29 1700 AC 04/29 SC 1947 Famotidine 20 MG Q48 04/27 1000 AC 05/05 PO 0903 Ferrous Sulfate 325 MG DAILY 04/24 1143 AC 05/05 PO 0902 Furosemide 80 MG Q48 05/03 1000 AC 05/05 PO 0902 Furosemide 40 MG Q48 05/02 1000 AC 05/04 PO 1111 Hydralazine HCl 100 MG TID 04/24 1600 AC 05/05 PO 0901 Isosorbide 60 MG DAILY 04/24 1144 AC 05/05 Mononitrate PO 0902 Lactobacillus 1 CAP DAILY 05/05 1000 UNVr Acidophilus PO Lidocaine 1 PAT DAILY 04/26 1015 AC 05/05 EXT 0859 Lidocaine 1 PAT DAILY 04/25 1030 AC 05/04 EXT 1110 Losartan Potassium 50 MG DAILY 04/24 1237 AC 05/05 PO 0902 Morphine Sulfate 1 MG Q4P PRN 04/24 0930 AC 05/01 IV 1436 Moxifloxacin HCl 400 MG DAILY 05/04 1000 AC 05/05 PO 0901 Nebivolol 5 MG DAILY 04/24 1144 AC 05/05 PO 0902 Oxycodone HCl 5 MG Q6P PRN 04/24 0930 AC 05/04 PO 2251 Patient Medication 1 ED .STK-MED ONE 05/04 1359 DC Teaching ED 05/04 1400 Polyethylene Glycol 17 GM DAILY 04/28 1039 AC 05/05 PO 0907 Potassium Chloride 10 MEQ DAILY 04/24 1144 AC 05/05 PO 0902 Senna/Docusate Sodium 1 TAB BID 04/28 1039 AC 05/05 PO 0903 Spironolactone 12.5 MG DAILY 05/01 1000 AC 05/05 PO 0908 Results Last 24 Hours of Lab Results: Laboratory Tests 05/05 0720 Chemistry Sodium (137 - 145 mmol/L) 144 Potassium (3.5 - 5.1 mmol/L) 4.3 Chloride (98 - 107 mmol/L) 108 H Carbon Dioxide (22 - 30 mmol/L) 26 Anion Gap (5 - 16) 10 BUN (7 - 17 mg/dL) 43 H Creatinine (0.5 - 1.0 mg/dL) 2.3 H Estimated GFR (>60 ml/min) 21 L BUN/Creatinine Ratio (7 - 25 %) 18.7 Hematology CBC w Diff NO MAN DIFF REQ WBC (4.8 - 10.8 /CUMM) 10.9 H RBC (4.20 - 5.40 /CUMM) 2.47 L Hgb (12.0 - 16.0 G/DL) 7.1 *L Hct (37 - 47 %) 22.1 L MCV (81.0 - 99.0 FL) 89.5 MCH (27.0 - 31.0 PG) 28.6 RDW (11.5 - 14.5 %) 15.5 H Plt Count (130 - 400 /CUMM) 397 MPV (7.4 - 10.4 FL) 8.3 Gran % (42.2 - 75.2 %) 76.6 H Lymphocytes % (20.5 - 51.1 %) 10.8 L Monocytes % (1.7 - 9.3 %) 8.5 Eosinophils % (0 - 5 %) 3.7 Basophils % (0.0 - 2.0 %) 0.4 Absolute Granulocytes (1.4 - 6.5 /CUMM) 8.3 H Absolute Lymphocytes (1.2 - 3.4 /CUMM) 1.2 Absolute Monocytes (0.10 - 0.60 /CUMM) 0.9 H Absolute Eosinophils (0.0 - 0.7 /CUMM) 0.4 Absolute Basophils (0.0 - 0.2 /CUMM) 0 PUBS MCHC (33.0 - 37.0 G/DL) 32.0 L Assessment/Plan Assessment/Recommendations: Ms. 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 On admission, she had back pain and worsening anemia and renal dysfunction. Her creatinine has been around 1.9 to 2.4 for the last few years. On presentation, her creatinine has increased to 3.0. Her anemia has been running from 7.3 to 10.7 for at least 5 years. MGUS diagnosis is unclear. She has had normal SPEP and UPEP previously. Her calcium is normal. She has no noted protein gap. SPEP and immunofixation is negative. This makes MGUS unlikely. Renal function seems to be improving. She has been started on epoetin liberty 20, 000 unit on 04/29/2017. Anemia is a little lower today. Normal dosing is 50-100 units/kg 3 times a week. She may get weekly doing if needed. She will need nephrology follow up. Current work up suggest anemia of chronic disease/renal disease. Recommendations: 1. Send UPEP (? canceled) 2. Continue TRACEY support 3. follow up with nephrology on CKD Please call [phone] with any questions or concerns. Problem List: 1. Community acquired pneumonia 2. Acute on chronic renal insufficiency 3. Anemia
--- NOTE | 2017-05-05 09:38 | PN- Pulmonary ---
Subjective HPI/Critical Care Issues: Patient is currently on 4 L of of nasal cannula saturating between 94-92%. No acute episodes of chest pain or shortness of breath. Review of Systems Constitutional: Denies: chills, fever. EENTM: Denies: visual changes. Cardiovascular: Denies: chest pain, palpitations. Respiratory: Reports: short of breath. Denies: cough. Gastrointestinal: Denies: abdominal pain, nausea, vomiting. Genitourinary: Denies: dysuria. Objective Current Medications: Current Medications Sig/Duong Start time Last Medication Dose Route Stop Time Status Admin Acetaminophen 975 MG Q8P PRN 04/25 1100 AC 04/29 PO 0257 Acetaminophen 1,000 MG Q6P PRN 04/24 1045 AC 04/24 N/A 1 UNIT IV 1820 Albuterol Sulfate 3 ML BID 04/28 1315 AC 05/04 INH 1945 Amlodipine Besylate 10 MG DAILY 05/03 1000 AC 05/05 PO 0903 Atorvastatin Calcium 40 MG 1700 04/24 1700 AC 05/04 PO 1537 Doxazosin Mesylate 1 MG DAILY 04/24 1245 AC 05/05 PO 0902 Epoetin Ld 20,000 UNITS ONCE ONE 05/05 0930 UNVr SC 05/05 0931 Epoetin Ld 20,000 UNITS Q336 04/29 1700 AC 04/29 SC 1947 Famotidine 20 MG Q48 04/27 1000 AC 05/05 PO 0903 Ferrous Sulfate 325 MG DAILY 04/24 1143 AC 05/05 PO 0902 Furosemide 80 MG Q48 05/03 1000 AC 05/05 PO 0902 Furosemide 40 MG Q48 05/02 1000 AC 05/04 PO 1111 Hydralazine HCl 100 MG TID 04/24 1600 AC 05/05 PO 0901 Isosorbide 60 MG DAILY 04/24 1144 AC 05/05 Mononitrate PO 0902 Lactobacillus 1 CAP DAILY 05/05 1000 AC Acidophilus PO Lidocaine 1 PAT DAILY 04/26 1015 AC 05/05 EXT 0859 Lidocaine 1 PAT DAILY 04/25 1030 AC 05/04 EXT 1110 Losartan Potassium 50 MG DAILY 04/24 1237 AC 05/05 PO 0902 Morphine Sulfate 1 MG Q4P PRN 04/24 0930 AC 05/01 IV 1436 Moxifloxacin HCl 400 MG DAILY 05/04 1000 AC 05/05 PO 0901 Nebivolol 5 MG DAILY 04/24 1144 AC 05/05 PO 0902 Oxycodone HCl 5 MG Q6P PRN 04/24 0930 AC 05/04 PO 2251 Patient Medication 1 ED .STK-MED ONE 05/04 1359 [place] Teaching ED 05/04 1400 Polyethylene Glycol 17 GM DAILY 04/28 1039 05/05 PO 0907 Potassium Chloride 10 MEQ DAILY 04/24 1144 05/05 PO 0902 Senna/Docusate Sodium 1 TAB BID 04/28 1039 05/05 PO 0903 Spironolactone 12.5 MG DAILY 05/01 1000 AC 05/05 PO 0908 Vital Signs & I&O Last 24 Hrs of Vitals and I&O: Vital Signs Date Time Temp Pulse Resp B/P B/P Pulse O2 O2 Flow FiO2 Mean Ox Delivery Rate 05/05 0920 Room Air 05/05 0903 130/70 05/05 0902 130/70 05/05 0902 130/70 05/05 0902 130/70 05/05 0901 130/70 05/05 0549 98.5 77 18 130/72 94 Nasal Cannula 05/05 0000 92 Nasal 4.0L Cannula 05/04 2113 74 138/60 05/04 1945 92 Nasal 4.0L Cannula 05/04 1600 Nasal 4.0L Cannula 05/04 1537 74 140/80 05/04 1419 98.7 69 18 150/72 92 05/04 1203 Room Air 05/04 1112 88 135/72 05/04 1112 88 135/72 05/04 1112 88 135/72 05/04 1111 88 135/72 05/04 1111 88 135/72 05/04 1050 94 Nasal 5.0L Cannula Intake & Output 05/05 1600 05/05 0800 05/05 0000 Intake Total 100 700 Output Total 400 350 Balance -400 -250 700 Intake, Oral 100 700 Number 0 4 Bowel Movements Output, Urine 400 350 Impression/Plan Impression/Plan Impression/Plan: CT chest IMPRESSION: 1. Right upper and right lower lobe consolidation consistent with pneumonia. 2. No evidence of a discrete pulmonary mass or adenopathy. 3. Patent tracheobronchial tree. DICTATED BY: CHEYANNE CHANCE MD DATE/TIME DICTATED:04/28/17 / 1342 Physical Exam General Appearance: Alert, Oriented X3, Cooperative, Mild Distress HEENT: Atraumatic Neck: Supple Cardiovascular: Regular Rate, Normal S1, Normal S2 Lungs: OVERALL DECREASED AIR ENTRY AT THE LUNG BASES,. wheezing noted bilaterally Abdomen: Normal Bowel Sounds, Soft, No Tenderness Neurological: Normal Speech, Normal Tone, Sensation Intact Extremities: BILATERAL TRACE EXTREMITY EDEMA IMPRESSION This is a 76-year-old lady with hypertension, hyperlipidemia, type 2 diabetes, chronic significant anemia, worsening chronic kidney diseasestage III versus 4, chronic venous insufficiency, diastolic dysfunction with previous heart failure, recurrent mechanical fall at home, probable neuropathy, recent colonoscopy with no malignancy with multiple polyps removed, significant lumbosacral degeneration with chronic L1 fracture, chronic low back pain, normocytic anemia, chronic lower extremity edema, now has * Improving Acute hypoxemic respiratory failure related to significant pneumonia multi lobar in the right side with pleurisy now complicated by bilateral pulmonary infiltrates after she has received blood transfusion suggestive of acute lung injury probably from transfusion versus worsening pneumonia * Significant community-acquired pneumonia in a lady with previous history of C. difficile with previous history of some some dysfunction of her immunoglobulins. No previous history of Pseudomonas. High risk for decompensation * Morbid obesity with signs and symptoms suggestive of obstructive sleep apnea but patient is not hypercarbic * Anemia of chronic disease which is now made worse by renal failure followed by hematology at this time * Significant back pain and gait instability with recent fall aswell rule out significant neuropathy probably from diabetes, compounded by significant degenerative joint and disc disease in the lumbosacral area with L5 nerve root involvement in the left with right foraminal stenosis. * Pleuritic chest pain due to pleurisy * L1 fracture which appears to be chronic * Aneurysmal dilatation of aorta noted in the MRI * Hypertension, hyperlipidemia, diabetes relatively stable at this time * Chronic venous insufficiency with lower extremity edema * Significant diastolic dysfunction of the heart with previous history of heart failure probably now fluid overloaded after blood transfusion RECOMMENDATION * wean down oxygen * moxifloxacin, continue diuretic, adequate sugar management, watch hematocrit. * Strict I's and O's Pt given written instructions to follow we me when she is dcd from rehab in the next 2-3 weeks. will follow up with her closely
--- NOTE | 2017-05-05 12:12 | PN- Nephrology ---
Assessment/Plan Assessment: 1. PATO- returned to baseline 2. CKD- hypertensive nephrosclerosis 3. PNA 4. 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 6. Anemia- on procrit. This will need to be arranged as an outpatient. Her best bet would be to have it arranged through cancer Center. Given the fact that hematology is involved, would defer to hematology with regards to arranging and managing her anemia. Suggestion: 1. No change in therapy. 2. Continue with the TRACEY 3. Have no objection if hematology wouldn't wish to assume responsibility for its management Subjective Subjective: Patient feels ok. Sitting up in a chair Objective Vital Signs and I&Os Vital Signs Date Time Temp Pulse Resp B/P B/P Pulse O2 O2 Flow FiO2 Mean Ox Delivery Rate 05/05 1018 93 Nasal 4.0L Cannula 05/05 0920 Room Air 05/05 0903 130/70 05/05 0902 130/70 05/05 0902 130/70 05/05 0902 130/70 05/05 0901 130/70 05/05 0800 93 Nasal 4.0L Cannula 05/05 0549 98.5 77 18 130/72 94 Nasal Cannula 05/05 0000 92 Nasal 4.0L Cannula 05/04 2113 74 138/60 05/04 1945 92 Nasal 4.0L Cannula 05/04 1600 Nasal 4.0L Cannula 05/04 1537 74 140/80 05/04 1419 98.7 69 18 150/72 92 Intake & Output 05/05 1600 05/05 0400 05/04 1600 05/04 0400 05/03 1600 05/03 0400 Intake Total 100 700 900 240 180 Output Total 750 632 487 3745 100 Balance -650 700 0 -360 -970 -100 Intake, Oral 100 700 900 240 180 Number 0 4 Bowel Movements Output, Urine 750 088 290 3917 100 Physical Exam: General Appearance: well developed/nourished, no apparent distress, alert, awake , comfortable, obese Head: atraumatic, normal appearance Neck: normal inspection, supple Respiratory: normal breath sounds Cardiovascular: regular rate/rhythm Abdomen: normal bowel sounds, soft, non-tender, no organomegaly, obese protuberent Neurologic/Psychiatric: no motor/sensory deficits, awake, alert Skin: intact, normal color Current Medications: Current Medications Sig/Duong Start time Last Medication Dose Route Stop Time Status Admin Acetaminophen 975 MG Q8P PRN 04/25 1100 AC 04/29 PO 0257 Acetaminophen 1,000 MG Q6P PRN 04/24 1045 AC 04/24 N/A 1 UNIT IV 1820 Albuterol Sulfate 3 ML BID 04/28 1315 05/05 INH 1018 Amlodipine Besylate 10 MG DAILY 05/03 1000 AC 05/05 PO 0903 Atorvastatin Calcium 40 MG 1700 04/24 1700 AC 05/04 PO 1537 Doxazosin Mesylate 1 MG DAILY 04/24 1245 05/05 PO 0902 Epoetin Ld 20,000 U ONCE ONE 05/05 0930 [facility] 05/05 0931 Epoetin Ld 20,000 UNITS Q336 04/29 1700 AC 04/29 SC 1947 Famotidine 20 MG Q48 04/27 1000 05/05 PO 0903 Ferrous Sulfate 325 MG DAILY 04/24 1143 05/05 PO 0902 Furosemide 80 MG Q48 05/03 1000 AC 05/05 PO 0902 Furosemide 40 MG Q48 05/02 1000 AC 05/04 PO 1111 Hydralazine HCl 100 MG TID 04/24 1600 AC 05/05 PO 0901 Isosorbide 60 MG DAILY 04/24 1144 05/05 Mononitrate PO 0902 Lactobacillus 1 CAP DAILY 05/05 1000 AC Acidophilus PO Lidocaine 1 PAT DAILY 04/26 1015 AC 05/05 EXT 0859 Lidocaine 1 PAT DAILY 04/25 1030 AC 05/04 EXT 1110 Losartan Potassium 50 MG DAILY 04/24 1237 AC 05/05 PO 0902 Morphine Sulfate 1 MG Q4P PRN 04/24 0930 05/01 IV 1436 Moxifloxacin HCl 400 MG DAILY 05/04 1000 05/05 PO 0901 Nebivolol 5 MG DAILY 04/24 1144 05/05 PO 0902 Oxycodone HCl 5 MG Q6P PRN 04/24 0930 05/04 PO 2251 Patient Medication 1 ED .STK-MED ONE 05/04 1359 HI Teaching ED 05/04 1400 Polyethylene Glycol 17 GM DAILY 04/28 1039 05/05 PO 0907 Potassium Chloride 10 MEQ DAILY 04/24 1144 05/05 PO 0902 Senna/Docusate Sodium 1 TAB BID 04/28 1039 05/05 PO 0903 Spironolactone 12.5 MG DAILY 05/01 1000 05/05 PO 0908 Results Pertinent Lab Results: Laboratory Tests 05/05 05/04 0720 0820 Chemistry Sodium (137 - 145 mmol/L) 144 145 Potassium (3.5 - 5.1 mmol/L) 4.3 4.0 Chloride (98 - 107 mmol/L) 108 H 106 Carbon Dioxide (22 - 30 mmol/L) 26 26 Anion Gap (5 - 16) 10 13 BUN (7 - 17 mg/dL) 43 H 44 H Creatinine (0.5 - 1.0 mg/dL) 2.3 H 2.4 H Estimated GFR (>60 ml/min) 21 L 20 L BUN/Creatinine Ratio (7 - 25 %) 18.7 18.3 Hematology CBC w Diff NO MAN DIFF REQ NO MAN DIFF REQ WBC (4.8 - 10.8 /CUMM) 10.9 H 11.7 H RBC (4.20 - 5.40 /CUMM) 2.47 L 2.73 L Hgb (12.0 - 16.0 G/DL) 7.1 *L 7.8 L Hct (37 - 47 %) 22.1 L 24.5 L MCV (81.0 - 99.0 FL) 89.5 89.8 MCH (27.0 - 31.0 PG) 28.6 28.6 RDW (11.5 - 14.5 %) 15.5 H 15.6 H Plt Count (130 - 400 /CUMM) 397 407 H MPV (7.4 - 10.4 FL) 8.3 8.3 Gran % (42.2 - 75.2 %) 76.6 H 78.7 H Lymphocytes % (20.5 - 51.1 %) 10.8 L 9.6 L Monocytes % (1.7 - 9.3 %) 8.5 7.0 Eosinophils % (0 - 5 %) 3.7 4.3 Basophils % (0.0 - 2.0 %) 0.4 0.4 Absolute Granulocytes (1.4 - 6.5 /CUMM) 8.3 H 9.2 H Absolute Lymphocytes (1.2 - 3.4 /CUMM) 1.2 1.1 L Absolute Monocytes (0.10 - 0.60 /CUMM) 0.9 H 0.8 H Absolute Eosinophils (0.0 - 0.7 /CUMM) 0.4 0.5 Absolute Basophils (0.0 - 0.2 /CUMM) 0 0 PUBS MCHC (33.0 - 37.0 G/DL) 32.0 L 31.8 L 05/03 0700 Chemistry Sodium (137 - 145 mmol/L) 145 Potassium (3.5 - 5.1 mmol/L) 4.3 Chloride (98 - 107 mmol/L) 108 H Carbon Dioxide (22 - 30 mmol/L) 25 Anion Gap (5 - 16) 12 BUN (7 - 17 mg/dL) 48 H Creatinine (0.5 - 1.0 mg/dL) 2.5 H Estimated GFR (>60 ml/min) 19 L BUN/Creatinine Ratio (7 - 25 %) 19.2 Hematology CBC w Diff NO MAN DIFF REQ WBC (4.8 - 10.8 /CUMM) 11.4 H RBC (4.20 - 5.40 /CUMM) 2.56 L Hgb (12.0 - 16.0 G/DL) 7.4 *L Hct (37 - 47 %) 23.0 L MCV (81.0 - 99.0 FL) 89.9 MCH (27.0 - 31.0 PG) 29.0 RDW (11.5 - 14.5 %) 15.6 H Plt Count (130 - 400 /CUMM) 383 MPV (7.4 - 10.4 FL) 8.7 Gran % (42.2 - 75.2 %) 79.9 H Lymphocytes % (20.5 - 51.1 %) 7.9 L Monocytes % (1.7 - 9.3 %) 7.3 Eosinophils % (0 - 5 %) 4.4 Basophils % (0.0 - 2.0 %) 0.5 Absolute Granulocytes (1.4 - 6.5 /CUMM) 9.1 H Absolute Lymphocytes (1.2 - 3.4 /CUMM) 0.9 L Absolute Monocytes (0.10 - 0.60 /CUMM) 0.8 H Absolute Eosinophils (0.0 - 0.7 /CUMM) 0.5 Absolute Basophils (0.0 - 0.2 /CUMM) 0.1 PUBS MCHC (33.0 - 37.0 G/DL) 32.2 L
[2017-05-05 14:13] VITALS: BP 120/70
[2017-05-05 22:24] VITALS: BP 138/60
[2017-05-06 06:49] VITALS: BP 130/60
--- NOTE | 2017-05-06 07:30 | PN- Housestaff ---
Subjective Follow-up For: Acute hypoxemic respiratory failure Community-acquired pneumonia Status post mechanical fall Acute Back pain Acute kidney injury on chronic kidney disease Acute on chronic anemia Complaints: no complaints Subjective: Patient is currently on 4 L of of nasal cannula saturating between 90-94%. No acute episodes of chest pain or shortness of breath. Thursday patient was switched to nasal cannula from 40-45% of high flow oxygen. Review of Systems Constitutional: Denies: chills, fever. Cardiovascular: Denies: chest pain, palpitations. Respiratory: Denies: cough. Gastrointestinal: Denies: abdominal pain, nausea, vomiting. Genitourinary: Denies: discharge. Musculoskeletal: Denies: back pain. Objective Last 24 Hrs of Vital Signs/I&O Vital Signs Date Time Temp Pulse Resp B/P B/P Pulse O2 O2 Flow FiO2 Mean Ox Delivery Rate 05/06 0649 98.2 83 20 130/60 91 Nasal Cannula 05/06 0000 Nasal 4.0L Cannula 05/05 2224 98.4 81 20 138/60 90 Nasal Cannula 05/05 2132 82 140/66 05/05 1933 94 Nasal 4.0L Cannula 05/05 1600 Nasal 4.0L Cannula 05/05 1413 98.0 98 20 120/70 98 05/05 1018 93 Nasal 4.0L Cannula 05/05 0920 Room Air 05/05 0903 130/70 05/05 0902 130/70 05/05 0902 130/70 05/05 0902 130/70 05/05 0901 130/70 Intake & Output 05/06 1600 05/06 0800 05/06 0000 Intake Total 100 Output Total 650 Balance -550 Intake, Oral 100 Number 0 2 Bowel Movements Output, Urine 650 Physical Exam General Appearance: Alert, Oriented X3, Cooperative HEENT: Atraumatic Neck: Supple Cardiovascular: Regular Rate, Normal S1, Normal S2 Lungs: decreased air entry at the lung bases Abdomen: Normal Bowel Sounds, Soft, No Tenderness Neurological: Normal Speech, Normal Tone, Sensation Intact Extremities: No Clubbing, No Cyanosis, No Edema Current Medications: Current Medications Sig/Duong Start time Last Medication Dose Route Stop Time Status Admin Acetaminophen 975 MG Q8P PRN 04/25 1100 AC 04/29 PO 0257 Acetaminophen 1,000 MG Q6P PRN 04/24 1045 AC 04/24 N/A 1 UNIT IV 1820 Albuterol Sulfate 3 ML BID 04/28 1315 AC 05/05 INH 1932 Amlodipine Besylate 10 MG DAILY 05/03 1000 AC 05/05 PO 0903 Atorvastatin Calcium 40 MG 1700 04/24 1700 AC 05/05 PO 1540 Doxazosin Mesylate 1 MG DAILY 04/24 1245 AC 05/05 PO 0902 Epoetin Ld 20,000 U ONCE ONE 05/05 0930 DC 05/05 SC 05/05 0931 1235 Epoetin Ld 20,000 UNITS Q336 04/29 1700 AC 04/29 SC 1947 Famotidine 20 MG Q48 04/27 1000 AC 05/05 PO 0903 Ferrous Sulfate 325 MG DAILY 04/24 1143 AC 05/05 PO 0902 Furosemide 80 MG Q48 05/03 1000 AC 05/05 PO 0902 Furosemide 40 MG Q48 05/02 1000 AC 05/04 PO 1111 Hydralazine HCl 100 MG TID 04/24 1600 AC 05/05 PO 2132 Isosorbide 60 MG DAILY 04/24 1144 AC 05/05 Mononitrate PO 0902 Lactobacillus 1 CAP DAILY 05/05 1000 AC 05/05 Acidophilus PO 1235 Lidocaine 1 PAT DAILY 04/26 1015 AC 05/05 EXT 0859 Lidocaine 1 PAT DAILY 04/25 1030 AC 05/04 EXT 1110 Losartan Potassium 50 MG DAILY 04/24 1237 AC 05/05 PO 0902 Morphine Sulfate 1 MG Q4P PRN 04/24 0930 AC 05/01 IV 1436 Moxifloxacin HCl 400 MG DAILY 05/04 1000 AC 05/05 PO 0901 Nebivolol 5 MG DAILY 04/24 1144 AC 05/05 PO 0902 Oxycodone HCl 5 MG Q6P PRN 04/24 0930 AC 05/05 PO 2338 Polyethylene Glycol 17 GM DAILY 04/28 1039 AC 05/05 PO 0907 Potassium Chloride 10 MEQ DAILY 04/24 1144 AC 05/05 PO 0902 Senna/Docusate Sodium 1 TAB BID 04/28 1039 AC 05/05 PO 0903 Spironolactone 12.5 MG DAILY 05/01 1000 AC 05/05 PO 0908 Lines/Diet/Fluids Lines: peripheral lines Restraints: none Assessment/Plan Assessment: Patient is a 76 y/o F with PMHx of uncontrolled HTN, HLD, T2DM, chronic anemia, CKD stage III, chronic venous insufficiency and 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 She is being managed for intractable back pain and acute on chronic renal insufficiency. Acute hypoxemic respiratory failure Likely secondary to volume overload secondary to blood transfusion or worsening of pneumonia swallow evaluation negative for aspiration Continue with the current antibiotics for now PA and lateral chest x-ray done showed no preceding change in the multilobar right-sided airspace disease from 05/01/2017 Taper oxygen as tolerated Multilobar Community-acquired pneumonia Patient's oxygen requirement increased from baseline Patient remained afebrile overnight CXR showed Right upper lobe lung field opacity concerning for developing infiltrate and or atelectasis. WBC 11.3---> 12.8----> 11.5----> 11.4--- 11.7 ---> Pending Patient was pancultured with cultures, lower respiratory cultures and urine culture Legionella and strep antigen negative IV ceftriaxone and azithromycin were switched to Avelox yesterday. TRC nebs Intractable Back Pain and Gait Instability after mechanical fall at home. Patient denied hitting her head after a fall. No acute fracture noted on lumbar X-ray (h/o old L1 fx) CT and MRI of lumbar spine show no acute fractures, but showed degenerative changes, spondylosis and foraminal canal narrowing PT recommend rehab placement Will follow-up with physical therapy to reassess if pain is improved tomorrow On Lidocaine patch for back pain daily Continue IV tylenol and PO Oxycodone for pain Acute on Chronic Renal Failure Cr improved from 3 to 2.5---current pending (Baseline around 2.3) Nephrology following Patient was restarted on 40 mg every 48 and 80 mg every 48 alternatively of by mouth Lasix as per nephrology recommendations Contiunue spironolactone today Re-assess renal function tomorrow morning with BEP No IV fluids per Nephrology Patient started on erythropoietin as per recommendations of nephrology Given patient's history of ? MGUS, and now in acute on chronic renal failure with intractable back pain, we are concerned for transformation of her MGUS into Myeloma Awaiting serum free light chains (quantification) as requested by nephrology and SPEP, IPEP. Acute and chronic anemia Multifactorial in origin, anemia of chronic disease loss iron deficiency anemia indicated increased RDW Patient did have a recent (03/25) colonoscopy and polypectomies No history of blood per rectum. Suspect large component of her anemia is due to renal failure. GI consult (Dr. Souza) appreciated. Hemoglobin today pending Continue iron supplementation Heme Onc Consult NITHIN on CPAP Patient uses CPAP at night at home and this may be contributing to her low O2 sats overnight She was counselled to tell her son to bring her CPAP machine from home so she can use it in hospital HTN Continue Bystolic , Hydralazine, Amlodipine, losartan (Olmesartan equivalent). Continue spironolactone CAD Continue Isosorbide/ASA. Hyperlipidemia Continue Statin. DVT/Prophylaxis: mechanical Patient is full code Patient is on pain management Patient is on CHF diet Problem List: 1. Acute hypoxemic respiratory failure 2. Community acquired pneumonia Pain Ratin Pain Location: Back Pain Goal: Pain 4 or less Pain Plan: Continue current pain management Tomorrow's Labs & Rationales: Patient might be discharged today Consulting Request: Consulting Specialty: Pulmonary Disease
[2017-05-06 09:00] LABS: ABSOLUTE BASOPHIL COUNT 0 /CUMM (0.0-0.2); ABSOLUTE EOSINOPHIL COUNT 0.5 /CUMM (0.0-0.7); ABSOLUTE GRANULOCYTE CT 9.2 /CUMM (1.4-6.5); ABSOLUTE LYMPH COUNT 1.3 /CUMM (1.2-3.4); ABSOLUTE MONOCYTE COUNT 0.8 /CUMM (0.10-0.60); BASOPHIL % 0.4 % (0.0-2.0); GRANULOCYTE % 77.9 % (42.2-75.2); MEAN CORPUSCULAR HGB 28.7 PG (27.0-31.0); MEAN CORPUSCULAR HGB CONC 31.8 G/DL (33.0-37.0); MEAN CORPUSCULAR VOLUME 90.2 FL (81.0-99.0); MEAN PLATELET VOLUME 7.7 FL (7.4-10.4); PLATELET COUNT 417 /CUMM (130-400); RBC DISTRIBUTION WIDTH 15.4 % (11.5-14.5); RED BLOOD CELL CT 2.77 /CUMM (4.20-5.40); WHITE BLOOD CELL COUNT 11.8 /CUMM (4.8-10.8)
--- NOTE | 2017-05-06 09:02 | Patient Discharge Instructions ---
Discharge Instructions General Discharge Information You were seen/treated for: Acute hypoxemic respiratory failure Community-acquired pneumonia Status post mechanical fall Acute Back pain Acute kidney injury on chronic kidney disease Acute on chronic anemia Special Instructions: Follow-up with primary care doctor in a week after discharge. Follow-up with screen printer Dr. Vang after discharge Follow-up with electrotyper helper Dr. Long after discharge Follow-up with browning processor/oncologist after discharge Diet Continue normal diet: Yes Recommended Diet: CHF diet Activity Full Activity/No Limits: No Acute Coronary Syndrome Inclusion Criteria At DC or during hospital stay patient has or had the following: ACS DIAGNOSIS No Discharge Core Measures Meds if any: Prescribed or Continued at Discharge Meds if any: NOT Prescribed or Continued at Discharge Congestive Heart Failure Inclusion Criteria At DC or during hospital stay patient has or had the following: CHF DIAGNOSIS No Discharge Core Measures Meds if any: Prescribed or Continued at Discharge Meds if any: NOT Prescribed or Continued at Discharge Cerebrovascular accident Inclusion Criteria At DC or during hospital stay patient has or had the following: CVA/TIA Diagnosis No Discharge Core Measures Meds if any: Prescribed or Continued at Discharge Meds if any: NOT Prescribed or Continued at Discharge Venous thromboembolism Inclusion Criteria VTE Diagnosis No VTE Type NONE VTE Confirmed by (Test) NONE Discharge Core Measures - Per Current guidelines, there needs to be overlap - treatment for the first 5 days of Warfarin therapy. - If discharged on Warfarin prior to 5 days of - overlap therapy, the patient will need to be - assessed for post discharge needs including - *Post discharge parental anticoagulation - *Warfarin and/or parental anticoagulation education - *Follow up date to check INR post discharge At least 5 days overlap therapy as Inpatient No Meds if any: Prescribed or Continued at Discharge Note: Overlap Therapy is Warfarin and Anticoagulant Meds if any: NOT Prescribed or Continued at Discharge
[2017-05-06] MEDS ORDERED: SENNA PLUS TAB1 EACH PO (09:12)
[2017-05-06] MEDS ORDERED: PROBIOTIC & AC1 EACH PO (09:12)
[2017-05-06] MEDS ORDERED: LASIX40 M1 PO ×2 (09:12→09:33)
[2017-05-06] MEDS ORDERED: MIRALAX119 GM PO (09:12)
[2017-05-06] MEDS ORDERED: BYSTOLIC5 M1 PO (09:16)
[2017-05-06] MEDS ORDERED: EPOGEN2000 UNIT/ SC (09:20)
[2017-05-06] MEDS ORDERED: LOSARTAN POTASS50 M1 PO (09:20)
[2017-05-06] MEDS ORDERED: OXYCODONE HCL5 M1 PO (09:21)
--- NOTE | 2017-05-06 11:20 | PN- Hematology ---
Subjective Subjective: She continues to fever about the same. She still has severe right anterior chest pain. Pain affects her ability to use the walker. Pain with coughing. She denies any fever or chills. Review of Systems: Constitutional: Denies: chills, fever. Cardiovascular: Reports: chest pain. Respiratory: Reports: short of breath. Cough. Gastrointestinal: Denies: abdominal pain. Genitourinary: Denies: dysuria. Musculoskeletal: Reports: back pain, persistent. Hematologic/Endocrine: Denies: bruising, bleeding. All Other Systems: Reviewed and Negative Objective Vital Signs and I&Os Vital Signs Date Time Temp Pulse Resp B/P B/P Pulse O2 O2 Flow FiO2 Mean Ox Delivery Rate 05/06 0649 98.2 83 20 130/60 91 Nasal Cannula 05/06 0000 Nasal 4.0L Cannula 05/05 2224 98.4 81 20 138/60 90 Nasal Cannula 05/05 2132 82 140/66 05/05 1933 94 Nasal 4.0L Cannula 05/05 1600 Nasal 4.0L Cannula 05/05 1413 98.0 98 20 120/70 98 Intake & Output 05/06 1600 05/06 0800 05/06 0000 05/05 1600 05/05 0800 05/05 0000 Intake Total 100 1500 100 700 Output Total 650 850 350 Balance -550 650 -250 700 Intake, Oral 100 1500 100 700 Number 0 2 0 4 Bowel Movements Output, Urine 650 850 350 Physical Exam: General Appearance: no apparent distress, comfortable, obese, on 4L oxygen Respiratory: chest tender to palpation on right anterior, quiet respiration, decreased breath sounds (at bases) Cardiovascular: regular rate/rhythm Gastrointestinal: normal bowel sounds, soft, non-tender, obese Extremities: pedal edema (1+) Lymphatic: no anterior cervical farzana Current Medications: Current Medications Sig/Duong Start time Last Medication Dose Route Stop Time Status Admin Acetaminophen 975 MG Q8P PRN 04/25 1100 AC 04/29 PO 0257 Acetaminophen 1,000 MG Q6P PRN 04/24 1045 AC 04/24 N/A 1 UNIT IV 1820 Albuterol Sulfate 3 ML BID 04/28 1315 AC 05/05 INH 1932 Amlodipine Besylate 10 MG DAILY 05/03 1000 AC 05/05 PO 0903 Atorvastatin Calcium 40 MG 1700 04/24 1700 AC 05/05 PO 1540 Doxazosin Mesylate 1 MG DAILY 04/24 1245 AC 05/05 PO 0902 Epoetin Liberty 20,000 UNITS Q336 04/29 1700 AC 04/29 SC 1947 Famotidine 20 MG Q48 04/27 1000 AC 05/05 PO 0903 Ferrous Sulfate 325 MG DAILY 04/24 1143 AC 05/05 PO 0902 Furosemide 80 MG Q48 05/03 1000 AC 05/05 PO 0902 Furosemide 40 MG Q48 05/02 1000 AC 05/04 PO 1111 Hydralazine HCl 100 MG TID 04/24 1600 AC 05/05 PO 2132 Isosorbide 60 MG DAILY 04/24 1144 AC 05/05 Mononitrate PO 0902 Lactobacillus 1 CAP DAILY 05/05 1000 AC 05/05 Acidophilus PO 1235 Lidocaine 1 PAT DAILY 04/26 1015 AC 05/05 EXT 0859 Lidocaine 1 PAT DAILY 04/25 1030 AC 05/04 EXT 1110 Losartan Potassium 50 MG DAILY 04/24 1237 AC 05/05 PO 0902 Morphine Sulfate 1 MG Q4P PRN 04/24 0930 AC 05/01 IV 1436 Moxifloxacin HCl 400 MG DAILY 05/04 1000 AC 05/05 PO 0901 Nebivolol 5 MG DAILY 04/24 1144 AC 05/05 PO 0902 Oxycodone HCl 5 MG Q6P PRN 04/24 0930 AC 05/06 PO 0825 Polyethylene Glycol 17 GM DAILY 04/28 1039 AC 05/05 PO 0907 Potassium Chloride 10 MEQ DAILY 04/24 1144 AC 05/05 PO 0902 Senna/Docusate Sodium 1 TAB BID 04/28 1039 AC 05/05 PO 0903 Spironolactone 12.5 MG DAILY 05/01 1000 AC 05/05 PO 0908 Results Last 24 Hours of Lab Results: Laboratory Tests 05/06 0825 Chemistry Sodium (137 - 145 mmol/L) 146 H Potassium (3.5 - 5.1 mmol/L) 4.3 Chloride (98 - 107 mmol/L) 106 Carbon Dioxide (22 - 30 mmol/L) 27 Anion Gap (5 - 16) 12 BUN (7 - 17 mg/dL) 41 H Creatinine (0.5 - 1.0 mg/dL) 2.5 H Estimated GFR (>60 ml/min) 19 L BUN/Creatinine Ratio (7 - 25 %) 16.4 Hematology CBC w Diff NO MAN DIFF REQ WBC (4.8 - 10.8 /CUMM) 11.8 H RBC (4.20 - 5.40 /CUMM) 2.77 L Hgb (12.0 - 16.0 G/DL) 8.0 L Hct (37 - 47 %) 25.0 L MCV (81.0 - 99.0 FL) 90.2 MCH (27.0 - 31.0 PG) 28.7 RDW (11.5 - 14.5 %) 15.4 H Plt Count (130 - 400 /CUMM) 417 H MPV (7.4 - 10.4 FL) 7.7 Gran % (42.2 - 75.2 %) 77.9 H Lymphocytes % (20.5 - 51.1 %) 11.3 L Monocytes % (1.7 - 9.3 %) 6.4 Eosinophils % (0 - 5 %) 4.0 Basophils % (0.0 - 2.0 %) 0.4 Absolute Granulocytes (1.4 - 6.5 /CUMM) 9.2 H Absolute Lymphocytes (1.2 - 3.4 /CUMM) 1.3 Absolute Monocytes (0.10 - 0.60 /CUMM) 0.8 H Absolute Eosinophils (0.0 - 0.7 /CUMM) 0.5 Absolute Basophils (0.0 - 0.2 /CUMM) 0 PUBS MCHC (33.0 - 37.0 G/DL) 31.8 L Assessment/Plan Assessment/Recommendations: Ms. 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 On admission, she had back pain and worsening anemia and renal dysfunction. Her creatinine has been around 1.9 to 2.4 for the last few years. On presentation, her creatinine has increased to 3.0. Her anemia has been running from 7.3 to 10.7 for at least 5 years. MGUS diagnosis is unclear as to where this was diagnosed. SPEP and UPEP is normal on multiple evaluations. This makes MGUS unlikely. Renal function is stable. She has been started on epoetin liberty 20,000 unit on 04/29/2017 and yesterday. Hemoglobin and hematocrit are improved. She may get weekly dosing if needed. She will need nephrology follow up for CKD. Current work up suggest anemia of chronic disease/renal disease. She can get TRACEY support. She continues to have severe right sided chest pain. Recommendations: 1. Continue TRACEY support 2. follow up with nephrology on CKD 3. Imaging of right chest pain 4. Follow up in 1-2 weeks Please call [phone] with any questions or concerns. Problem List: 1. Community acquired pneumonia 2. Acute back pain 3. Acute on chronic renal insufficiency 4. Anemia 5. Anemia
[2017-05-06 12:42] VITALS: BP 172/90
--- NOTE | 2017-05-06 14:12 | PN- Pulmonary ---
Subjective HPI/Critical Care Issues: She still has severe right anterior chest pain. Pain affects her ability to use the walker. Pain with coughing. She denies any fever or chills. Review of Systems: Constitutional: Denies: chills, fever. Cardiovascular: Reports: chest pain. Respiratory: Reports: short of breath. Cough. Gastrointestinal: Denies: abdominal pain. Genitourinary: Denies: dysuria. Musculoskeletal: Reports: back pain, persistent. Hematologic/Endocrine: Denies: bruising, bleeding. All Other Systems: Reviewed and Negative Objective Current Medications: Current Medications Sig/Duong Start time Last Medication Dose Route Stop Time Status Admin Acetaminophen 975 MG Q8P PRN 04/25 1100 AC 04/29 PO 0257 Acetaminophen 1,000 MG Q6P PRN 04/24 1045 AC 04/24 N/A 1 UNIT IV 1820 Albuterol Sulfate 3 ML BID 04/28 1315 AC 05/06 INH 1118 Amlodipine Besylate 10 MG DAILY 05/03 1000 AC 05/06 PO 1103 Atorvastatin Calcium 40 MG 1700 04/24 1700 AC 05/05 PO 1540 Doxazosin Mesylate 1 MG DAILY 04/24 1245 AC 05/06 PO 1103 Epoetin Ld 20,000 UNITS Q336 04/29 1700 AC 04/29 SC 1947 Famotidine 20 MG Q48 04/27 1000 AC 05/05 PO 0903 Ferrous Sulfate 325 MG DAILY 04/24 1143 AC 05/06 PO 1103 Furosemide 80 MG Q48 05/03 1000 AC 05/05 PO 0902 Furosemide 40 MG Q48 05/02 1000 AC 05/06 PO 1103 Hydralazine HCl 100 MG TID 04/24 1600 AC 05/06 PO 1103 Isosorbide 60 MG DAILY 04/24 1144 AC 05/06 Mononitrate PO 1103 Lactobacillus 1 CAP DAILY 05/05 1000 AC 05/06 Acidophilus PO 1104 Lidocaine 1 PAT DAILY 04/26 1015 AC 05/06 EXT 1104 Lidocaine 1 PAT DAILY 04/25 1030 AC 05/04 EXT 1110 Losartan Potassium 50 MG DAILY 04/24 1237 AC 05/06 PO 1103 Morphine Sulfate 1 MG Q4P PRN 04/24 0930 AC 05/01 IV 1436 Moxifloxacin HCl 400 MG DAILY 05/04 1000 AC 05/06 PO 1102 Nebivolol 5 MG DAILY 04/24 1144 AC 05/06 PO 1102 Oxycodone HCl 5 MG Q6P PRN 04/24 0930 05/06 PO 0825 Patient Medication 1 ED .STK-MED ONE 05/06 1332 AK Teaching ED 05/06 1333 Polyethylene Glycol 17 GM DAILY 04/28 1039 05/06 PO 1102 Potassium Chloride 10 MEQ DAILY 04/24 1144 AC 05/06 PO 1103 Senna/Docusate Sodium 1 TAB BID 04/28 1039 AC 05/06 PO 1104 Spironolactone 12.5 MG DAILY 05/01 1000 AC 05/06 PO 1104 Vital Signs & I&O Last 24 Hrs of Vitals and I&O: Vital Signs Date Time Temp Pulse Resp B/P B/P Pulse O2 O2 Flow FiO2 Mean Ox Delivery Rate 05/06 1242 98.2 68 20 172/90 05/06 1139 98 Nasal 4.0L Cannula 05/06 1103 68 172/90 05/06 1103 68 172/90 05/06 1103 68 172/90 05/06 1103 68 172/90 05/06 1102 68 172/90 05/06 0800 Nasal 4.0L Cannula 05/06 0649 98.2 83 20 130/60 91 Nasal Cannula 05/06 0000 Nasal 4.0L Cannula 05/05 2224 98.4 81 20 138/60 90 Nasal Cannula 05/05 2132 82 140/66 05/05 1933 94 Nasal 4.0L Cannula 05/05 1600 Nasal 4.0L Cannula 05/05 1413 98.0 98 20 120/70 98 Intake & Output 05/06 1600 05/06 0800 05/06 0000 Intake Total 100 Output Total 650 Balance -550 Intake, Oral 100 Number 0 2 Bowel Movements Output, Urine 650 Impression/Plan Impression/Plan Impression/Plan: CT chest IMPRESSION: 1. Right upper and right lower lobe consolidation consistent with pneumonia. 2. No evidence of a discrete pulmonary mass or adenopathy. 3. Patent tracheobronchial tree. DICTATED BY: CHEYANNE CHANCE MD DATE/TIME DICTATED:04/28/17 / 2 Physical Exam General Appearance: Alert, Oriented X3, Cooperative, Mild Distress HEENT: Atraumatic Neck: Supple Cardiovascular: Regular Rate, Normal S1, Normal S2 Lungs: OVERALL DECREASED AIR ENTRY AT THE LUNG BASES,. wheezing noted bilaterally Abdomen: Normal Bowel Sounds, Soft, No Tenderness Neurological: Normal Speech, Normal Tone, Sensation Intact Extremities: BILATERAL TRACE EXTREMITY EDEMA IMPRESSION This is a 76-year-old lady with hypertension, hyperlipidemia, type 2 diabetes, chronic significant anemia, worsening chronic kidney diseasestage III versus 4, chronic venous insufficiency, diastolic dysfunction with previous heart failure, recurrent mechanical fall at home, probable neuropathy, recent colonoscopy with no malignancy with multiple polyps removed, significant lumbosacral degeneration with chronic L1 fracture, chronic low back pain, normocytic anemia, chronic lower extremity edema, now has * Improved Acute hypoxemic respiratory failure related to significant pneumonia multi lobar in the right side with pleurisy now complicated by bilateral pulmonary infiltrates after she has received blood transfusion suggestive of acute lung injury probably from transfusion versus worsening pneumonia * Significant community-acquired pneumonia in a lady with previous history of C. difficile with previous history of some some dysfunction of her immunoglobulins. No previous history of Pseudomonas. High risk for decompensation * Morbid obesity with signs and symptoms suggestive of obstructive sleep apnea but patient is not hypercarbic * Anemia of chronic disease which is now made worse by renal failure followed by hematology at this time * Significant back pain and gait instability with recent fall aswell rule out significant neuropathy probably from diabetes, compounded by significant degenerative joint and disc disease in the lumbosacral area with L5 nerve root involvement in the left with right foraminal stenosis. * Pleuritic chest pain due to pleurisy * L1 fracture which appears to be chronic * Aneurysmal dilatation of aorta noted in the MRI * Hypertension, hyperlipidemia, diabetes relatively stable at this time * Chronic venous insufficiency with lower extremity edema * Significant diastolic dysfunction of the heart with previous history of heart failure probably now fluid overloaded after blood transfusion RECOMMENDATION * wean down oxygen * moxifloxacin, continue diuretic, adequate sugar management, watch hematocrit. * Strict I's and O's Pt given written instructions to follow we me when she is dcd from rehab in the next 2-3 weeks. will follow up with her closely
== END 2017-05-06 14:20 | DRG 193 ==
LOC: ERH 23:00 → 2NA 04-24 09:04 → ERHI 04-24 09:04 → EDBEDREQ 04-24 09:19 → ENRESERV 04-24 09:41 → ENTRNSPT 04-24 10:18 → 2NA 04-24 11:00 → CMPTRNSPT 04-24 11:07 → 2NA 04-27 09:25 → ENPENDDIS 05-06 09:41 → 2NA 05-06 14:20
PROVIDERS: Emergency Medicine; Hospitalist; Internal Medicine; Student in an Organized Health Care Education/Training Program; ADMIT Internal Medicine
PROC: 30233N1 Transfusion of Nonautologous Red Blood Cells into Peripheral Vein, Percutaneous Approach (ICD-10-PCS; principal; 2017-04-28)
DX: J18.9 Pneumonia, unspecified organism (principal); J96.01 Acute respiratory failure with hypoxia; N17.9 Acute kidney failure, unspecified; I13.0 Hypertensive heart and chronic kidney disease with heart failure and stage 1 through stage 4 chronic kidney disease, or unspecified chronic kidney disease; S32.019A Unspecified fracture of first lumbar vertebra, initial encounter for closed fracture; I50.32 Chronic diastolic (congestive) heart failure; J95.84 Transfusion-related acute lung injury (TRALI); Z68.42 Body mass index [BMI] 45.0-49.9, adult; E11.22 Type 2 diabetes mellitus with diabetic chronic kidney disease; M54.5 Low back pain; N18.3 Chronic kidney disease, stage 3 (moderate); D63.1 Anemia in chronic kidney disease; D47.2 Monoclonal gammopathy; E78.5 Hyperlipidemia, unspecified; I87.2 Venous insufficiency (chronic) (peripheral); W19.XXXA Unspecified fall, initial encounter; Y84.8 Other medical procedures as the cause of abnormal reaction of the patient, or of later complication, without mention of misadventure at the time of the procedure; Y92.230 Patient room in hospital as the place of occurrence of the external cause; R26.9 Unspecified abnormalities of gait and mobility; M47.9 Spondylosis, unspecified; D50.9 Iron deficiency anemia, unspecified; G47.33 Obstructive sleep apnea (adult) (pediatric); I25.10 Atherosclerotic heart disease of native coronary artery without angina pectoris; Y92.019 Unspecified place in single-family (private) house as the place of occurrence of the external cause; E66.01 Morbid (severe) obesity due to excess calories; Z86.010 Personal history of colon polyps; E87.6 Hypokalemia; G89.29 Other chronic pain; M19.90 Unspecified osteoarthritis, unspecified site; K57.90 Diverticulosis of intestine, part unspecified, without perforation or abscess without bleeding
CPT/HCPCS: 2NAP; 72148; 82570; 83921; 84156; 84166; 36415; 76775; 81001; 82436; 84165; 86334; 86920; 87040; 87070; 87086; 87449; 87450; 93005; 93010; 93306; 96374; 96375; 97110-GO; 97110-GP; 97112-GO; 97116-GO; 97116-GP; 97161-GP; 97530-GO; 97530-GP; J0131; J0456; J0696; J0885-EC; J1940; J3360; J3370; J7040; P9016

== ENCOUNTER 2017-05-25 09:40 | Observation (INO) | payer OTHER ==
[~2017-05-25] VITALS: Ht 152.4 cm; Wt 104.3 kg
[~2017-05-25 09:40] MED LIST changes: +DOXAZOSIN MESYLA2 M1 PO; +EPOGEN2000 UNIT/ SC; +LASIX40 M1 PO; +LOSARTAN POTASS50 M1 PO; +MIRALAX119 GM PO; +OXYCODONE HCL5 M1 PO; +PROBIOTIC & AC1 EACH PO; +SENNA PLUS TAB1 EACH PO
--- NOTE | 2017-05-25 09:49 | NUR ---
PT DANY FROM HOME C/O CHRONIS LOWER BACK PAIN X 20 YEARS. STATES SHE ROLLED OUT OF BED YESTERDAY INJURING HER LEFT KNEE AND EXACERBATING HER BACK PAIN. STATES SHE WAS D/C FROM [facility] ON THURSDAY FOR SAME PROBLEM AND HAS BEEN GETTING AROUND PRETTY WELL WITH WALKER
[2017-05-25] MEDS ORDERED: GAVILAX238 GM PO (10:41)
[2017-05-25] MEDS ORDERED: SENEXON-S TABL1 EACH PO (10:42)
--- NOTE | 2017-05-25 11:04 | ED NECK/BACK PAIN COMPLAINT ---
History of Present Illness General Chief Complaint: Low Back Pain/Injury Stated Complaint: BIBA, BACK PAIN Source: patient Exam Limitations: no limitations Vital Signs & Intake/Output Vital Signs & Intake/Output Vital Signs Date Time Temp Pulse Resp B/P B/P Pulse O2 O2 Flow FiO2 Mean Ox Delivery Rate 05/27 1357 98.8 70 18 129/60 89 05/27 1017 99.3 65 20 138/65 05/27 1010 99.3 65 20 138/65 05/27 1010 99.3 65 20 138/65 05/27 1010 99.3 65 20 138/65 05/27 1010 99.3 65 20 138/65 05/27 0857 99.4 05/27 0747 63 18 149/67 96 Nasal 2.0L Cannula 05/27 0110 97.1 68 16 123/60 94 Room Air 05/26 2208 97.6 65 18 136/62 05/26 2117 97.6 65 18 136/62 96 Room Air 05/26 1727 98.1 57 20 113/56 94 Room Air 05/26 1702 98.1 57 20 113/56 ED Intake and Output 05/27 0000 05/26 1200 Intake Total 250 Output Total 200 Balance 50 Intake, Oral 250 Output, Urine 200 Patient 230 lb Weight Allergies Coded Allergies: NO KNOWN ALLERGIES (UNKNOWN 04/24/17) Reconcile Medications Amlodipine Bes/Olmesartan Med (Reina 5-40 MG Tablet) 5 MG-40 MG TABLET 1 TAB PO DAILY HEART (Reported) Aspirin (Children's Aspirin) 81 MG TAB.CHEW 1 TAB PO DAILY HEART HEALTH ( Reported) Cholecalciferol (Vitamin D3) 1,000 UNIT TABLET 1 TAB PO DAILY VITAMIN SUPPORT (Reported) Doxazosin Mesylate 2 MG TABLET 0.5 TAB PO DAILY HEART (Reported) Epoetin Ld (Epogen) 2,000 UNIT/ML VIAL 20,000 UNITS SC Q336 ANEMIA Ferrous Sulfate 325 MG (65 MG IRON) TABLET 1 TAB PO DAILY SUPPLEMENT ( Reported) Furosemide (Lasix) 40 MG TABLET 1 TAB PO Q48 volume overload/CHF Furosemide (Lasix) 40 MG TABLET 2 TAB PO Q48 volume overload/CHF Hydralazine HCl 100 MG TABLET 1 TAB PO TID HIGH BLOOD PRESSURE Isosorbide Mononitrate (Isosorbide Mononitrate ER) 60 MG TAB.ER.24H 1 TAB PO DAILY HIGH BLOOD PRESSURE Losartan Potassium 50 MG TABLET 1 TAB PO DAILY HTN Multivitamin (Multiple Vitamins) 1 EACH TABLET 1 TAB PO DAILY VITAMIN SUPPORT (Reported) Nebivolol HCl (Bystolic) 5 MG TABLET 1 TAB PO DAILY HEART (Reported) Anderson-3S/Dha/Epa/Fish Oil (Fish Oil 1,200 MG Softgel) 360-1,200MG CAPSULE 1 CAP PO DAILY SUPPLEMENT (Reported) Oxycodone HCl 5 MG TABLET 1 TAB PO Q6P PRN PAIN SCALE 4-6 (MODERATE) Polyethylene Glycol 3350 (Gavilax) 17 GRAM/DOSE POWDER 17 GM PO DAILY GI ( Reported) Potassium Chloride 10 MEQ TABLET.ER 1 TAB PO DAILY ELECTROLYTES Rosuvastatin Calcium (Crestor) 40 MG TABLET 1 TAB PO DAILY CHOLESTEROL ( Reported) Sennosides/Docusate Sodium (Senexon-S Tablet) 8.6 MG-50 MG TABLET 1 TAB PO BIDP PRN CONSTIPATION (Reported) Spironolactone 25 MG TABLET 0.5 TAB PO DAILY HIGH BLOOD PRESSURE Vitamin E 200 UNIT CAPSULE 1 CAP PO DAILY SUPPLEMENT (Reported) Triage Note: PT BIBA FROM HOME C/O CHRONIS LOWER BACK PAIN X 20 YEARS. STATES SHE ROLLED OUT OF BED YESTERDAY INJURING HER LEFT KNEE AND EXACERBATING HER BACK PAIN. STATES SHE WAS D/C FROM [facility] ON THURSDAY FOR SAME PROBLEM AND HAS BEEN GETTING AROUND PRETTY WELL WITH WALKER Triage Nurses Notes Reviewed? yes HPI: Patient presents for evaluation of severe low back pain. 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 , Age 44; Cause: HTN (hypertension). FATHER, , Age 68; Cause: ASHD (arteriosclerotic heart disease). (MALATHI DUNN,AMBER Smith) Medical History Any Pertinent Medical History? see below for history Family History Hx Contributory? No (AMBER OCASIO DO) Review of Systems Review of Systems Constitutional: Reports: fever. Eyes: Reports: no symptoms. Ears, Nose, Throat, Mouth: Reports: no symptoms. Respiratory: Denies: short of breath. Cardiovascular: Denies: chest pain. Gastrointestinal/Abdominal: Denies: abdominal pain. Musculoskeletal: Reports: back pain. Skin: Denies: rash. Neurological/Psychological: Reports: no symptoms. (AMBER OCASIO DO) Physical Exam Physical Exam General Appearance: alert, awake, anxious Head: atraumatic, normal appearance Eyes: Bilateral: normal appearance, PERRL, EOMI. Ears, Nose, Throat, Mouth: hearing grossly normal Neck: supple Respiratory: no respiratory distress Cardiovascular: regular rate/rhythm Peripheral Pulses: 4+ radial (R), 4+ radial (L) Gastrointestinal: non-tender Back: decreased range of motion Extremities: pedal edema (AMBER OCASIO DO) Progress Differential Diagnosis: AAA, cauda equina syn, herniated disc, myofascial strain Plan of Care: Orders Procedure Date/time Status Heart Healthy Diet 05/27 B Active Discharge Patient 05/27 1439 Active Enema 05/27 1228 Active Enema 05/27 1015 Active CASE MANAGEMENT CONSULT 05/27 0726 Active BLOOD CULTURE 05/26 2013 Active EKG 05/[address] in observation 05/26 2004 Active Patient Data 05/26 2004 Active Vital Signs 05/26 2004 Active Code Status 05/26 2004 Active Intake & Output 05/25 1057 Active Current Medications Sig/Duong Start time Last Medication Dose Stop Time Status Admin Doxazosin Mesylate 1 MG DAILY 05/27 1000 AC 05/27 (Cardura) 1010 Hydralazine HCl 100 MG TID 05/25 2200 AC 05/27 (Apresoline) 1010 Oxycodone/ 2 TAB Q6P PRN 05/25 1930 AC 05/27 Acetaminophen 1010 (Percocet) Nebivolol 5 MG DAILY 05/25 1920 AC 05/27 (Bystolic) 1017 Spironolactone 12.5 MG DAILY 05/25 1920 AC 05/27 (Aldactone) 1017 Isosorbide 60 MG DAILY 05/25 1919 AC 05/27 Mononitrate 1010 (Imdur) Losartan Potassium 50 MG DAILY 05/25 1919 AC 05/27 (Cozaar) 1010 Amlodipine Besylate 5 MG DAILY 05/25 1918 AC 05/27 (Norvasc) 1010 Aspirin 81 MG DAILY 05/25 1918 AC 05/27 (Aspirin) 1010 Laboratory Tests 05/27/17 0100: Urine Color YEL, Urine Clarity CLDY H, Urine pH 6.0, Ur Specific [place] 1.020, Urine Protein 100 H, Urine Ketones NEG, Urine Nitrite NEG, Urine Bilirubin NEG, Urine Urobilinogen 0.2, Ur Leukocyte Esterase LARGE H, Ur Microscopic SEDIMENT EXAMINED, Urine RBC RARE, Urine WBC 50-75 H, Ur Epithelial Cells FEW, Urine Bacteria PACKD H, Urine Mucus RARE, Urine Hemoglobin NEG, Urine Glucose NEG Microbiology 05/26 2105 BLOOD: Blood Culture - RES 05/26 2045 BLOOD: Blood Culture - RES Diagnostic Imaging: Discussed w/RAD: CT Scan. Radiology Impression: PATIENT: CHRISTINE ALAS PRESENT AGE: 76 PATIENT ACCOUNT NO: [id number] : 42 LOCATION: [facility] ORDERING PHYSICIAN: AMBER HERNANDEZ MD SERVICE DATE: 05/25/17 EXAM TYPE: CAT - CT ABD & PELVIS W/O IV CONTRAS EXAMINATION: CT ABDOMEN AND PELVIS WITHOUT CONTRAST CLINICAL INFORMATION: Back pain. History of ectatic aorta. COMPARISON: 11/14/2013. Lumbar spine CT from 04/23/2017. TECHNIQUE: Multidetector volumetric imaging was performed from the superior aspect of the liver through the pubic symphysis. Sagittal and coronal reformatted images were obtained on the technologist's workstation. DLP: 1273. mGy-cm FINDINGS: LUNG BASES: Minimal bibasilar subsegmental atelectasis. The heart is mildly enlarged. Coronary artery calcifications are present. LIVER, GALLBLADDER, AND BILIARY TREE: The liver is normal in size, shape, and attenuation. No focal hepatic lesion or biliary ductal dilatation is present. The gallbladder is unremarkable with no evidence of radiopaque gallstones, gallbladder wall thickening, or obvious pericholecystic inflammatory changes. PANCREAS: Unremarkable. SPLEEN: Unremarkable. ADRENAL GLANDS: Unremarkable. KIDNEYS AND URETERS: The kidneys are normal in size, shape, and attenuation. No hydronephrosis, hydroureter, or calculi seen. Symmetric chronic perinephric stranding. Left midpole and lower pole exophytic renal cysts are again noted. Bilateral cortical thinning. BLADDER : Unremarkable. GASTROINTESTINAL TRACT: The stomach and small bowel are unremarkable. No dilated loops of bowel or evidence of obstruction. There is pancolonic diverticulosis, greatest throughout the left hemicolon. No wall thickening or inflammatory changes. No evidence of diverticulitis. No free air or free fluid. ABDOMINAL WALL: No significant hernia is appreciated. LYMPH NODES : Normal. VASCULAR: Moderate atherosclerotic calcifications. Ectatic infrarenal abdominal aorta, measuring up to 0.4 cm in AP dimension, as seen on the recent prior lumbar spine CT. This is slightly increased from the abdominal CT performed 11/14/2013, measuring 3.8 cm at that time. PELVIC VISCERA: The uterus and adnexa are unremarkable. OSSEOUS STRUCTURES: No acute or suspicious osseous abnormality. Mild superior endplate compression at L1, unchanged. Grade 1 anterolisthesis of L4 on L5. Multilevel facet arthropathy. Degenerative changes of the hips. IMPRESSION: No acute findings. Ectatic infrarenal abdominal aorta measuring up to 4 cm in AP dimension, unchanged from prior lumbar spine CT and slightly increased since 2014. Diverticulosis without evidence of diverticulitis. Degenerative changes in the spine. DICTATED BY: HAY EWING MD DATE/TIME DICTATED:05/25/171314 BROACH TROUBLE SHOOTER:ZEKE DATE/TIME TRANSCRIBED:05/25/171314 CONFIDENTIAL, DO NOT COPY WITHOUT APPROPRIATE AUTHORIZATION. <Electronically signed in Other Vendor System> SIGNED BY: HAY EWING MD 05/25/17 1327, PATIENT: CHRISTINE ALAS PRESENT AGE: 76 PATIENT ACCOUNT NO: [id number] : 42 LOCATION: [facility] ORDERING PHYSICIAN: AMBER HERNANDEZ MD SERVICE DATE: 05/25/176966 EXAM TYPE: RAD - XRY-KNEE COMPLETE LEFT EXAMINATION: XR KNEE, LEFT CLINICAL INFORMATION: Fall with left knee pain and tenderness COMPARISON: None TECHNIQUE: 5 views of the left knee. 6 total images. FINDINGS: The bones are osteopenic. No acute fracture or subluxation. Severe narrowing seen at the patellofemoral compartment. Moderate medial compartment narrowing. Prominent tricompartmental marginal osteophytes. No joint effusion. Diffuse vascular calcifications. Anterior soft tissue swelling. IMPRESSION: No acute fracture or malalignment. Tricompartmental degenerative changes. Anterior soft tissue swelling. DICTATED BY: GILDARDO DUNN,HAY DATE/TIME DICTATED:05/25/171644 BROACH TROUBLE SHOOTER: ZEKE DATE/TIME TRANSCRIBED:05/25/171644 CONFIDENTIAL, DO NOT COPY WITHOUT APPROPRIATE AUTHORIZATION. <Electronically signed in Other Vendor System> SIGNED BY: GILDARDO DUNN,HAY 05/25/17 5847 Comments: 05/25/2017 4:03:12 PM I have just updated Christine and her family on test results. She is still having pain but did get some relief with the morphine. I have ordered additional medications to control her pain and have ordered a left knee x-ray to assess for injury given her recent fall. 05/25/2017 7:17:10 PM x-rays show no acute fracture or other findings. Patient medicated with Percocet ibuprofen and Flexeril with improvement and back pain but patient is still unable to ambulate without severe pain and a high risk of falling. Patient will be medicated through the evening and reevaluated in the morning for possible rehabilitation placement. (MALATHI DUNN,AMBER Smith) Hand-Off Endorsed To: AMBER OCASIO DO Endorsed Time: 0700 Pending: consult (PT, CASE MANAGEMENT) Comments: Patient signed out to me on 05/25/2017 at 1900 hrs. Patient signed out to Dr. Landa on 05/26/2017 at 0700 hrs. pending case management. (ERNIE DUNN,HAYLEE Liu) Departure Departure Condition: Stable Referrals: VIPUL COOK MD (PCP/Family) Departure Forms: Customer Survey General Discharge Information (AMBER HERNANDEZ MD) Observation Note Spoke With: CASSIE NARAYANAN MD Physician Advisor Notified: AMBER OCASIO DO Place Patient In: ED Observation Rationale for Observation: My rational for observation is as follows the patient needs PT evaluation in the a.m., monitoring for fever, follow the urinalysis , assessment of pain control [ Patient has ongoing weakness, she has low-grade fever, leukocytosis, chronic renal insufficiency and anemia. She was signed out to Dr. Hernandez at 7 PM. She will be observed in the emergency department overnight, repeat CBCs in the a.m., tract temperature, reevaluate for admission versus placement in assisted care]. PA/LANOLIN PLANT OPERATOR Co-Sign Statement Statement: ED Attending supervision documentation- [x] I saw and evaluated the patient. I have also reviewed all the pertinent lab results and diagnostic results. I agree with the findings and the plan of care as documented in the PA's/LANOLIN PLANT OPERATOR's documentation. [] I have reviewed the ED Record and agree with the PA's/LANOLIN PLANT OPERATOR's documentation. [] Additions or exceptions (if any) to the PAs/LANOLIN PLANT OPERATOR's note and plan are summarized below: [] (AMBER OCASIO DO) Departure Time of Disposition: 1440 Disposition: ACUTE REHAB FACILITY Clinical Impression Primary Impression: Chronic back pain Secondary Impressions: Therapeutic opioid induced constipation (EARNEST REID MD) ED Attending Observation Observation Re-Evaluation: I have reevaluated VINAYLENNOXFLORENCIOCHRISTINE on 05/27/17 at 1440. The physical findings that support the continued need to observe this patient include multifactorial gait disorder. (EARNEST REID MD) (EARNEST REID MD)
--- NOTE | 2017-05-25 11:32 | NUR ---
#20G IV STARTED TO RIGHT FOREARM, BLOOD WORK SENT TO LAB AND MEDICATIONS ADMINISTERED PER JAN.
[2017-05-25 11:38] LABS: ABSOLUTE BASOPHIL COUNT 0 /CUMM (0.0-0.2); ABSOLUTE EOSINOPHIL COUNT 0.1 /CUMM (0.0-0.7); ABSOLUTE LYMPH COUNT 0.7 /CUMM (1.2-3.4); BASOPHIL % 0 % (0.0-2.0); EOSINOPHIL % 0.9 % (0-5); HEMATOCRIT 22.2 % (37-47); MEAN CORPUSCULAR HGB 28.5 PG (27.0-31.0); MEAN CORPUSCULAR VOLUME 88.9 FL (81.0-99.0); PLATELET COUNT 274 /CUMM (130-400); RBC DISTRIBUTION WIDTH 15.8 % (11.5-14.5); WHITE BLOOD CELL COUNT 14.8 /CUMM (4.8-10.8)
--- NOTE | 2017-05-25 11:42 | NUR ---
PT CLEANED OF URINE, CHANGED INTO CLEAN GOWN, ALL CLOTHING AND HER HOME SHEET PLACED IN BELONGING BAG AT BEDSIDE. LINENS CHANGED. SKIN WARM AND DRY, BUTTOCKS REDDENED, BUT BLANCHABLE. MARCIATM.
[2017-05-25 11:59] LABS: GRANULOCYTE % 87.4 % (42.2-75.2)
--- NOTE | 2017-05-25 12:01 | NUR ---
CRITICAL TEST RESULTS [id number] GREGOR ALAS 76 F TESTS AND RESULTS: H/H 7.1/22.2 FROM WILL IN LAB Results received and read back by: SREEDHAR PACE Results received date and time: 05/25/17 1202 The following provider was notified of the results, and read the results back: DR. SERVIN Notified date and time: 05/25/17 at 1158
--- NOTE | 2017-05-25 13:08 | NUR ---
PT TO CT AND BACK.
--- NOTE | 2017-05-25 13:27 | CT SCAN REPORT ---
EXAMINATION: CT ABDOMEN AND PELVIS WITHOUT CONTRAST CLINICAL INFORMATION: Back pain. History of ectatic aorta. COMPARISON: 11/14/2013. Lumbar spine CT from 04/23/2017. TECHNIQUE: Multidetector volumetric imaging was performed from the superior aspect of the liver through the pubic symphysis. Sagittal and coronal reformatted images were obtained on the technologist's workstation. DLP: 1273. mGy-cm FINDINGS: LUNG BASES: Minimal bibasilar subsegmental atelectasis. The heart is mildly enlarged. Coronary artery calcifications are present. LIVER, GALLBLADDER, AND BILIARY TREE: The liver is normal in size, shape, and attenuation. No focal hepatic lesion or biliary ductal dilatation is present. The gallbladder is unremarkable with no evidence of radiopaque gallstones, gallbladder wall thickening, or obvious pericholecystic inflammatory changes. PANCREAS: Unremarkable. SPLEEN: Unremarkable. ADRENAL GLANDS: Unremarkable. KIDNEYS AND URETERS: The kidneys are normal in size, shape, and attenuation. No hydronephrosis, hydroureter, or calculi seen. Symmetric chronic perinephric stranding. Left midpole and lower pole exophytic renal cysts are again noted. Bilateral cortical thinning. BLADDER: Unremarkable. GASTROINTESTINAL TRACT: The stomach and small bowel are unremarkable. No dilated loops of bowel or evidence of obstruction. There is pancolonic diverticulosis, greatest throughout the left hemicolon. No wall thickening or inflammatory changes. No evidence of diverticulitis. No free air or free fluid. ABDOMINAL WALL: No significant hernia is appreciated. LYMPH NODES: Normal. VASCULAR: Moderate atherosclerotic calcifications. Ectatic infrarenal abdominal aorta, measuring up to 0.4 cm in AP dimension, as seen on the recent prior lumbar spine CT. This is slightly increased from the abdominal CT performed 11/14/2013, measuring 3.8 cm at that time. PELVIC VISCERA: The uterus and adnexa are unremarkable. OSSEOUS STRUCTURES: No acute or suspicious osseous abnormality. Mild superior endplate compression at L1, unchanged. Grade 1 anterolisthesis of L4 on L5. Multilevel facet arthropathy. Degenerative changes of the hips. IMPRESSION: No acute findings. Ectatic infrarenal abdominal aorta measuring up to 4 cm in AP dimension, unchanged from prior lumbar spine CT and slightly increased since 2013. Diverticulosis without evidence of diverticulitis. Degenerative changes in the spine.
--- NOTE | 2017-05-25 13:54 | NUR ---
PT RESTING IN BED AT THIS TIME, RESPIRATIONS EVEN AND NONLABORED, EQUAL RISE AND FALL OF THE CHEST AND IN NAD. AWAITING POC.
--- NOTE | 2017-05-25 14:55 | NUR ---
PT TO USE BEDPAN, INCONTINENT OVER BED, ALBERTA CARE PROVIDED WITH FEMALE ANETTE FRASER AT BEDSIDE WITH THIS RN. CHANGED AND REPOSITIONED.
--- NOTE | 2017-05-25 16:10 | NUR ---
PT MEDICATED AT THIS TIME PER JAN. AWAITING KNEE XR. FAMILY AT BEDSIDE. PT REPORTS CHRONIC BACK PAIN 8/10 AND LEFT KNEE PAIN.
--- NOTE | 2017-05-25 16:53 | RADIOLOGY REPORT ---
EXAMINATION: XR KNEE, LEFT CLINICAL INFORMATION: Fall with left knee pain and tenderness COMPARISON: None TECHNIQUE: 5 views of the left knee. 6 total images. FINDINGS: The bones are osteopenic. No acute fracture or subluxation. Severe narrowing seen at the patellofemoral compartment. Moderate medial compartment narrowing. Prominent tricompartmental marginal osteophytes. No joint effusion. Diffuse vascular calcifications. Anterior soft tissue swelling. IMPRESSION: No acute fracture or malalignment. Tricompartmental degenerative changes. Anterior soft tissue swelling.
--- NOTE | 2017-05-25 18:25 | NUR ---
Case mgmnt TSF: I went in and introduced myself to patient and 2 [id number]. I gave them our brochure and card. I let them know that physical therapy would be by tomorrow to assess patient's needs. Patient was just discharged from [facility] 4 days ago and would like to go back there for STR if it is recommended. Patient's second choice would be (2) [facility]. Patient and family are in agreement with this plan. Case mgmnt continuing to follow.
--- NOTE | 2017-05-25 19:10 | NUR ---
PER DR. SERVIN, PT WILL STAY IN ER TONIGHT TO BE PLACED IN REHAB TOMORROW. PT AWARE OF POC.
--- NOTE | 2017-05-25 19:55 | NUR ---
CALLED PHARMACY FOR MEDICATIONS NOT STOCKED IN ED.
--- NOTE | 2017-05-25 20:19 | NUR ---
PT STATES, "I TAKE ALL MY MEDS AT ONE TIME AT NIGHT, I'M NOT WAITING UNTIL 10PM TO TAKE MORE."
--- NOTE | 2017-05-25 21:00 | NUR ---
PT MOVED ONTO A HOSPITAL BED AT THIS TIME, LINENS CHANGED AND PT REPOSITIONED. REDNESS NOTED ON INSIDE OF LEGS NEAR VAGINA. ALBERTA CARE PERFORMED. PT DENIES DISCOMFORT AT THIS TIME AND STATES, "THANK YOU, THAT FEELS MUCH BETTER."
--- NOTE | 2017-05-25 21:57 | NUR ---
PT SLEEPING IN BED AT THIS TIME, RESP EVEN AND NONLABORED, EQUAL RISE AND FALL OF THE CHEST AND IN NAD. SKIN WARM AND DRY, WCTM.
--- NOTE | 2017-05-25 22:18 | NUR ---
Case mgmnt TSF: I have completed the common linda, case mgmnt assessment and have created an envelope in the event that physical therapy recommends STR. I am leaving envelope on the clip board for case mgmnt in the morning. I will work on the MIMR. Case mgmnt continuing to follow.
--- NOTE | 2017-05-25 22:33 | NUR ---
Case mgmnt TSF: MIMR has been submitted and approved. A copy will go in the patient's envelope. Case mgmnt will continue to follow up tomorrow.
--- NOTE | 2017-05-25 23:08 | NUR ---
PT SLEEPING AT THIS TIME, RESP EVEN AND NONLABORED, APPROX 18 BREATHS PER MINUTE. PT IN NAD. WILL PROMOTE REST AND OBTAIN VS AT LATER TIME.
--- NOTE | 2017-05-26 | NUR ---
SLEEPING QUIETLY AT THIS TIME.
--- NOTE | 2017-05-26 02:23 | NUR ---
AWAKE. PLACED ON BEDPAN AT THIS TIME. STATES SHE "IS IN TOO MUCH PAIN TO GET UP AND AMBULATE TO BR"
--- NOTE | 2017-05-26 07:25 | NUR ---
ASSUMED CARE OF PT AT THIS TIME PT APPEARS TO BE SLEEPING WITH REGULAR RESPIRATIONS AND EQUAL CHEST RISE AND FALL NOTED. AWAITING POSSIBLE PLACEMENT TODAY
--- NOTE | 2017-05-26 08:19 | NUR ---
BREAKFAST TRAY ORDERED THROUGH DIETARY
--- NOTE | 2017-05-26 08:29 | NUR ---
PHARMACY CALLED FOR 1000 MEDS
--- NOTE | 2017-05-26 09:26 | NUR ---
PT AWAKE, EATING BREAKFAST AND WATCHING TV NO COMPLAINTS VOICED. 1000 MEDS ORDERED HOWEVER NOTED THAT PT WAS LAST MEDICATED LAST EVENING. PT STATES SHE USUALLY TAKES HER MEDICATIONS IN THE MORNING AND NOW HER SCHEDULE IS OFF DUE TO BEING MEDICATED LAST NIGHT. PT ALSO STATES SHE ONLY TAKES THE APRESOLINE 100MG AT [address]. DISCUSS[address] OCASIO - MEDICATIONS TO BE ADMINISTERED AT 1400 TODAY.
--- NOTE | 2017-05-26 11:12 | NUR ---
REPORT GIVEN TO FLORA AVENDANO
--- NOTE | 2017-05-26 11:14 | NUR ---
REPORT RECEIVED; CARE OF PT ASSUMED
--- NOTE | 2017-05-26 12:20 | NUR ---
PT SEEN AT BEDSIDE IN NAD. VERY LITTLE OF LUNCH EATEN. GENERALIZED LONG-TERM DISCOMFORT. NO REQUEST FOR PAIN MEDICATION
--- NOTE | 2017-05-26 13:57 | NUR ---
05/26 CASE MGMT- REFERRALS FAXED EARLIER TODAY TO [facility]- RECEIVED CALL FROM MICHEAL AT [facility] STATES WHEN PT IS MEDICALLY CLEARED WILL OFFER BED TO PT AND THAT THERE ARE BEDS AVAILABLE. PT NOT MEDICALLY CLEARED AT THIS TIME. CASE MGMT WILL CONTINUE TO FOLLOW.
--- NOTE | 2017-05-26 15:09 | RADIOLOGY REPORT ---
EXAMINATION: XR PORTABLE CHEST CLINICAL INFORMATION: Fever. Rule out pneumonia. COMPARISON: Chest x-rays of 05/03/2017 and multiple previous studies dated back to 12/05/2015. CT chest of 04/28/2017. TECHNIQUE: Portable frontal view of the chest was obtained. FINDINGS: There is compared interval resolution of previously noted right lung airspace disease. No focal consolidation, changes of congestion or pleural effusions. No pneumothorax. The cardiomediastinal silhouette is stable with mild cardiomegaly. No acute osseous abnormality. IMPRESSION: No radiographic evidence of pneumonia. Complete interval resolution of right lung airspace disease.
--- NOTE | 2017-05-26 17:25 | NUR ---
PT ATTEMPT TO USE BED JOLLY. NO NEED TO URINATE AT THIS TIME. URINE LABS ACTIVE
--- NOTE | 2017-05-26 19:05 | NUR ---
PT REMAINS COMFORTABLE. NO REQUEST AT THIS TIME
--- NOTE | 2017-05-26 19:38 | NUR ---
PT ATE APPROX 80% OF DINNER. MORE AWAKE, AFEBRILE. VERBALIZED DESIRE TO GO HOME RATHER THAN TO REHAB, STATING SHE GETS HOME CARE SERVICES STARTING ON THURSDAY AND WILL MOVE MORE AT HOME.
--- NOTE | 2017-05-26 20:04 | NUR ---
PT'S SON AT BEDSIDE
--- NOTE | 2017-05-26 22:29 | NUR ---
ATTEMPT MADE TO GET PT OOB TO RESTROOM USING WALKER . PT ABLE TO USE SIDE RAILS TO GET FROM LYING TO SITTING AT BEDSIDE. UNABLE TO RISE TO STANDING USING ONLY THE WALKER X 3 ATTEMPTS
--- NOTE | 2017-05-26 22:57 | NUR ---
PT ASSISTED ON AND OFF BED JOLLY; DID NOT URINATE. BLADDER SCANNED FOR 50mL
--- NOTE | 2017-05-27 | NUR ---
SLEEPING QUIETLY CALL SERVIN WITHIN REACH
--- NOTE | 2017-05-27 01:06 | NUR ---
AWAKENED CATH UA OBTAINED AND TRIO SENT
--- NOTE | 2017-05-27 01:56 | NUR ---
DR MALATHI SANDS OF URINE RESULTS.
--- NOTE | 2017-05-27 03:00 | NUR ---
SLEEPING AT THIS TIME
--- NOTE | 2017-05-27 07:45 | NUR ---
REPORT RECEIVED FROM [facility]. WOKE UP DURING DURING CARE. REPOSITIONED FOR CARE. BREAKFAST TRAY GIVEN.
--- NOTE | 2017-05-27 08:54 | NUR ---
05/27 CASE MGMT- SPOKE WITH MICHEAL AT [facility] STATES THEY ARE STILL OFFERING BED TO PT AND ARE REQUESTING PT NOTES. FAXING PT NOTES. PT LABS STILL PENDING. AWAITING PENDING LABS. CASE MGMT WILL CONTINUE TO FOLLOW.
--- NOTE | 2017-05-27 09:13 | NUR ---
05/27 CASE MGMT- PT REQUESTING INFORMATION REGARDING CO-PAYS AT [facility]. SPOK SHREYA BURTON AT [facility] SHE STATES PT HAS 5 DAYS LEFT AND AFTERWARDS WITH HAVE A $160.00 A DAY CO-PAY. I REQUESTED THAT WHEN PT THERE SALES PERFORMANCE ANALYST SEES HER TO DISCUSS MEDICAID OPTIONS WITH PT. MICHEAL AGREES WITH SALES PERFORMANCE ANALYST FOR PT AT [facility].
--- NOTE | 2017-05-27 09:20 | NUR ---
05/27 CASE MGMT- MET WI PT AND INFORMED PT THAT PER MICHEAL AT [facility] SHE WOULD HAVE 5 DAY COVERED WITH NO CO-PAYS AND AFTER THE 5 DAYS WILL HAVE A CO-PAY OF $160.00 PER DAY. PT REQUESTING I CONTACT PT EDWIN SKAGGS [phone] OT INFORM HIM. I CONTACTED PT EDWIN SKAGGS AND UPDATED REGARING [facility].
--- NOTE | 2017-05-27 09:26 | NUR ---
05/27 CASE MGMT- MICHEAL AT [facility] STATES WE DO NOT NEED TO GET AUTH FROM INSURANCE COMPANY THAT [facility] WILL GET AUTH.
--- NOTE | 2017-05-27 10:30 | NUR ---
C/O LOW BACK PAIN 05/18. PRN PERCOCET ORDERED.
--- NOTE | 2017-05-27 10:40 | NUR ---
FLEET ENEMA AND MG CITRATE ADMINISTERED ORDERED.
--- NOTE | 2017-05-27 11:24 | NUR ---
PT RECIEVED LUNCH TRAY
--- NOTE | 2017-05-27 11:59 | NUR ---
ATTEMPTED TO MOVE BOWEL. ASSISTED ON BEDPAN. UNABLE TO MOVE BOWEL. ASSIST X 2 TO SIT ON COMMOND. PT UNABLE TO GET OOB AND REQUESTED BED JOLLY. PLACED ON BEDPAN. CALL LIGHT WITHIN REACH.
--- NOTE | 2017-05-27 12:55 | NUR ---
RELISTKIKO SC ADMINISTERED BY FLORA BARRIOS. PT TO HAVE SOAP KHADIJAH ENEMA AT 1330 PER MD.
--- NOTE | 2017-05-27 13:52 | NUR ---
MEDS EFFECTIVE. PT HAD A VERY VERY LARGE SOFT BM. REPORTS GREATLY RELEIVED. ALBERTA CARE PROVIDED. REPOSTIONED FOR COMFORT. VITAL SIGNS STABLE.
[2017-05-27 13:57] VITALS: BP 129/60
--- NOTE | 2017-05-27 14:20 | NUR ---
Case Mgmnt TSF: I called [facility] and spoke with Dione in admitting. I confirmed that we did not have to get the auth. Dione stated that [facility] would get the auth from the insurance company. Per nursing, patient has moved her bowels today. I have given the envelope to Ernesto HINES and she will call report to facility. Nursing aware that patient is set up as a will call for transport. Case mgmnt complete.
--- NOTE | 2017-05-27 14:39 | NUR ---
REPORT CALLED TO [facility].
[2017-05-30] MEDS ORDERED: FUROSEMIDE40 M1 PO (14:45)
[2017-06-03] MEDS ORDERED: RENVELA800 M1 PO (14:58)
[2017-06-03] MEDS ORDERED: AMLODIPINE BESYL5 M1 PO (15:02)
== END 2017-05-30 13:55 ==
LOC: ERH 09:40 → ERHI 05-26 20:04 → ENRESERV 05-26 21:59 → ENTRNSPT 05-27 15:44 → ERHI 05-27 15:49 → CMPTRNSPT 05-27 21:18 → CMPBEDREQ 05-28 12:57 → ERHI 05-30 00:21
PROVIDERS: Emergency Medicine; ADMIT Emergency Medicine
DX: N17.9 Acute kidney failure, unspecified (principal); I13.0 Hypertensive heart and chronic kidney disease with heart failure and stage 1 through stage 4 chronic kidney disease, or unspecified chronic kidney disease; N18.4 Chronic kidney disease, stage 4 (severe); I50.32 Chronic diastolic (congestive) heart failure; G93.40 Encephalopathy, unspecified; D64.9 Anemia, unspecified; Z91.81 History of falling; E78.5 Hyperlipidemia, unspecified; I27.2 Other secondary pulmonary hypertension; E11.22 Type 2 diabetes mellitus with diabetic chronic kidney disease; E83.39 Other disorders of phosphorus metabolism
CPT/HCPCS: 6090; 86618; 73562-LT; 74176; 81001; 87040; 87086; 93005; 93010; 96372; 96374; 96375; 97112-GP; 97161-GP; 97530-GP; G0378; J0696; J3490

== ENCOUNTER 2018-05-24 05:44 | Inpatient (IN) | payer OTHER ==
[~2018-05-24] VITALS: Ht 149.9 cm; Wt 93.7 kg
[~2018-05-24 05:44] MED LIST changes: +AMLODIPINE BESYL5 M1 PO; +BYSTOLIC10 M1 PO; +CARDURA4 M1 PO; -DOXAZOSIN MESYLA2 M1 PO; +GAVILAX238 GM PO; +RENVELA800 M1 PO; +SENEXON-S TABL1 EACH PO
--- NOTE | 2018-05-24 05:54 | ED DYSPNEA/ASTHMA COMPLAINT ---
History of Present Illness General Chief Complaint: General Adult Stated Complaint: WEAKNESS, SOB Source: patient, family Exam Limitations: no limitations Allergies Coded Allergies: NO KNOWN ALLERGIES (UNKNOWN 04/24/17) Reconcile Medications Amlodipine Besylate 10 MG TABLET 1 TAB PO DAILY HEART (Reported) Aspirin (Children's Aspirin) 81 MG TAB.CHEW 1 TAB PO DAILY HEART HEALTH ( Reported) Cholecalciferol (Vitamin D3) 1,000 UNIT TABLET 1 TAB PO DAILY VITAMIN SUPPORT (Reported) Doxazosin Mesylate (Cardura) 4 MG TABLET 1 TAB PO DAILY HEART (Reported) Furosemide 40 MG TABLET 1 TAB PO DAILY WATER RETENTION (Reported) Hydralazine HCl 100 MG TABLET 1 TAB PO TID HIGH BLOOD PRESSURE Isosorbide Mononitrate (Isosorbide Mononitrate ER) 60 MG TAB.ER.24H 1 TAB PO DAILY HIGH BLOOD PRESSURE Multivitamin (Multiple Vitamins) 1 EACH TABLET 1 TAB PO DAILY VITAMIN SUPPORT (Reported) Nebivolol HCl (Bystolic) 10 MG TABLET 1 TAB PO DAILY HEART (Reported) Wallace-3 Fatty Acids/Fish Oil (Fish Oil 1,000 MG Capsule) 340 MG-1,000 MG CAPSULE 1 CAP PO DAILY SUPPLEMENT (Reported) Rosuvastatin Calcium (Crestor) 40 MG TABLET 1 TAB PO DAILY CHOLESTEROL ( Reported) Sevelamer Carbonate (Renvela) 800 MG TABLET 1 TAB PO WM Kidney failure Spironolactone 25 MG TABLET 0.5 TAB PO DAILY HIGH BLOOD PRESSURE Tramadol HCl 50 MG TABLET 1 TAB PO BIDP PRN PAIN (Reported) Vitamin E 200 UNIT CAPSULE 1 CAP PO DAILY SUPPLEMENT (Reported) Triage Nurses Notes Reviewed? yes HPI: 77 yo woman h/o chronic kidney disease, hypertension, presents with dyspnea at rest x 2 weeks, getting worse, associated with increased lower extremity swelling,with orthopnea. She notes no fever, chills, sputum, wheezing. She is otherwise well. (Rafael DUNN,Michael Bloom) Vital Signs & Intake/Output Vital Signs & Intake/Output Vital Signs Date Time Temp Pulse Resp B/P B/P Pulse O2 O2 Flow FiO2 Mean Ox Delivery Rate 05/26 0040 77 92 05/25 2207 99.1 73 20 126/72 92 05/25 2135 04 Nasal 3.0L Cannula 05/25 2134 78 95 05/25 2120 73 126/72 05/25 2120 73 126/72 07/17 2035 Nasal 1.5L Cannula 05/25 1843 61 150/62 05/25 1521 Nasal 2.0L Cannula 05/25 1459 83 170/88 05/25 1422 98.0 63 20 130/60 95 05/25 0852 70 162/64 05/25 0852 70 162/64 05/25 0852 70 162/64 05/25 0850 70 162/64 05/25 0800 Nasal 1.5L Cannula 05/25 0705 98.1 58 20 134/68 95 BIPAP 05/25 0537 59 95 ED Intake and Output 05/26 0000 05/25 1200 Intake Total 1090 220 Output Total 350 600 Balance 740 -380 Intake, IV 110 Intake, Oral 980 220 Output, Urine 350 600 Patient 213 lb Weight Onset: Gradual Duration: day(s):, changing over time, continues in ED, getting worse Severity: moderate, severe Activities at Onset: rest (Mary DUNN,Kiel Gaston) Past History Travel History Traveled to [place] past 21 day No Medical History Any Pertinent Medical History? see below for history Neurological: NONE EENT: NONE Cardiovascular: chronic venous insuff, diastolic CHF, hypertension, hyperlipidemia Respiratory: NONE Gastrointestinal: C.DIFF Hepatic: NONE Renal: chronic kidney disease Musculoskeletal: fracture, LUMBAR FX Psychiatric: NONE Endocrine: NONE Blood Disorders: anemia Cancer(s): NONE VENEER STAPLER/Reproductive: NONE History of MRSA: No History of VRE: No History of CDIFF: No Surgical History Surgical History: appendectomy (age 19), TONSILS podiatric surgery Psychosocial History Who do you live with Patient/Self Services at Home None What is your primary language Kinyarwanda Family History Family History, If Any: MOTHER (CVA/obese). , Age 44; Cause: HTN (hypertension). FATHER, , Age 68; Cause: ASHD (arteriosclerotic heart disease). Hx Contributory? No (Rafael DUNN,Michael Bloom) Review of Systems Review of Systems Constitutional: Reports: no symptoms. EENTM: Reports: no symptoms. Respiratory: Reports: no symptoms. Cardiovascular: Reports: no symptoms. GI: Reports: no symptoms. Genitourinary: Reports: no symptoms. Musculoskeletal: Reports: no symptoms. Skin: Reports: no symptoms. Neurological/Psychological: Reports: no symptoms. Hematologic/Endocrine: Reports: no symptoms. Immunologic/Allergic: Reports: no symptoms. All Other Systems: Reviewed and Negative (Rafael DUNN,Michael Bloom) Physical Exam Physical Exam General Appearance: well developed/nourished, mild distress Head: atraumatic, normal appearance Eyes: Bilateral: normal appearance. Ears, Nose, Throat: normal pharynx, normal ENT inspection Neck: normal inspection, supple, full range of motion Respiratory: diminished breath sounds at bases Cardiovascular: regular rate/rhythm Gastrointestinal: normal bowel sounds, soft, non-tender, no organomegaly Extremities: 3-4+ pitting edema symmetric in lower extremities. Neurologic/Psych: no motor/sensory deficits, awake, alert, oriented x 3 Skin: intact, normal color, warm/dry (Rafael DUNN,Michael Bloom) Core Measures ACS in differential dx? No CVA/TIA Diagnosis No Sepsis Present: No Sepsis Focused Exam Completed? No (Mary DUNN,Kiel Gaston) Progress Differential Diagnosis: chf, mi, dehydration vs other. Diagnostic Imaging: Viewed by Me: Radiology Read. Discussed w/RAD: Radiology Read. CXR Impression: PATIENT: GREGOR ALAS PRESENT AGE: 77 PATIENT ACCOUNT NO: [id number] : 42 LOCATION: [facility] ORDERING PHYSICIAN: Michael Hall MD SERVICE DATE: 05/24/18 EXAM TYPE: RAD - XRY-PORTABLE CHEST XRAY EXAMINATION: XR PORTABLE CHEST CLINICAL INFORMATION: Chest pain COMPARISON: 05/30/2017 TECHNIQUE: Portable frontal view of the chest was obtained. FINDINGS: Lung volumes are symmetric. In comparison to the prior examination there is increased prominence of the perihilar interstitium, suggesting vascular congestion. Trace pleural effusions may be present. No evidence of pneumothorax. The cardiac silhouette is enlarged. No acute osseous findings are seen. IMPRESSION: Mildly increased perihilar interstitial prominence, concerning for developing congestion in the proper clinical setting. Possible trace pleural effusions. Enlarged cardiac silhouette. DICTATED BY: Kevin Farnsworth MD DATE/TIME DICTATED:05/24/18638 DISHCLOTH FOLDER:ZEKE DATE/TIME TRANSCRIBED:05/24/18638 CONFIDENTIAL, DO NOT COPY WITHOUT APPROPRIATE AUTHORIZATION. <Electronically signed in Other Vendor System> SIGNED BY: Kevin Farnsworth MD 07/16/18 0644 Initial ED EKG: LBBB, no acute change from prior Hand-Off Endorsed To: Mary DUNN,Kiel Gaston Endorsed Time: 07 Pending: labs, Xray (Rafael DUNN,Michael Bloom) Plan of Care: Orders Procedure Date/time Status BASIC ELECTROLYTES PLUS BUN&CR 05/26 0600 Active THERAPIST ORDERS 05/26 0042 Complete OXYGEN SETUP CHG 05/24 UNK Complete OXYGEN 05/24 UNK Complete OXYGEN TRANSPORT 05/24 UNK Complete CONTIN. POS. AIRWAY PRESS. CHG 05/24 UNK Complete Current Medications Sig/Duong Start time Last Medication Dose Stop Time Status Admin Ferric Sodium 125 MG Q48H 05/25 2100 AC 05/25 Gluconate Complex 06/08 215 2119 (Ferrlecit) Sodium Chloride 100 ML (Normal Saline 0.9%) Ferric Sodium 125 MG Q48 05/25 1900 CAN Gluconate Complex (Ferrlecit) Acetaminophen 325 MG Q6P PRN 05/25 1500 AC 05/25 (Tylenol) 1500 Furosemide 40 MG DAILY 05/25 0900 AC 05/25 (Lasix) 0854 Labetalol HCl 300 MG BID 05/24 1800 AC 05/25 (Trandate) 2120 Pravastatin Sodium 20 MG 1700 05/24 1700 AC 05/25 (Pravachol) 1729 Heparin Sodium 5,000 UNIT Q8 05/24 1400 AC 05/25 (Porcine) 2120 Hydralazine HCl 100 MG TID 05/24 1400 AC 05/25 (Apresoline) 2120 Albuterol Sulfate 3 ML Q4P PRN 05/24 1300 AC 05/24 (Proventil) 1249 Sevelamer Carbonate 800 MG WM 05/24 1200 AC 05/25 (Renvela) 1729 Tramadol HCl 50 MG BID PRN 05/24 1145 AC 05/25 (Ultram) 1934 Vitamin E 200 IU DAILY 05/24 1138 AC 05/25 (Vitamin E) 0853 Spironolactone 12.5 MG DAILY 05/24 1137 AC 05/25 (Aldactone) 0853 Isosorbide 60 MG DAILY 05/24 1136 AC 05/25 Mononitrate 0852 (Imdur) Multivitamins 1 TAB DAILY 05/24 1136 AC 05/25 Therapeutic 0852 (Theragran-M Vitamins Tabs) Doxazosin Mesylate 4 MG DAILY 05/24 1134 AC 05/25 (Cardura) 0852 Amlodipine Besylate 10 MG DAILY 05/24 1133 AC 05/25 (Norvasc) 0852 Aspirin 81 MG DAILY 05/24 1133 05/25 (Aspirin) 0851 Cholecalciferol 1,000 IU DAILY 05/24 1133 05/25 (Vitamin D) 0853 Laboratory Tests 05/25/18 0616: Anion Gap 13, Estimated GFR 14 L, BUN/Creatinine Ratio 13.4 Comments: 05/24/2018 7:23:49 AM patient signed out to me by Dr. Hall at shift regional climate change analyst. Patient's case discussed with Dr. Garibay. Awaiting hospitalist. (Mary DUNN,Kiel Gaston) Departure Departure Disposition: STILL A PATIENT Condition: Stable Referrals: Anuj Danielson MD (PCP/Family) Departure Forms: Customer Survey General Discharge Information (Rafael DUNN,Michael Bloom) Departure Clinical Impression Primary Impression: CHF (congestive heart failure) Secondary Impressions: Anemia, Chronic kidney disease, Peripheral edema Admission Note Spoke With: Shlomo Philip MD Documentation of Exam: Documentation of any treatments & extenuating circumstances including Concerns Regarding Discharge (functional status, medication knowledge or non-compliance, living conditions, etc.) that warrant an admission rather than observation: Patient presents for evaluation of worsening dyspnea, orthopnea and peripheral edema. Emergency department evaluation reveals uncontrolled hypertension chest congestion and elevated BNP. Patient's clinical presentation is consistent with worsening congestive heart failure. This places the patient at high risk of respiratory failure, worsening hypoxia and mortality. I do not feel that she is a good candidate for outpatient management as I think she would have great difficulty in compliance with outpatient treatment. In fact compliance with outpatient treatment could worsen her symptoms and she could potentially return in worse clinical condition. While in the hospital I feel this patient should receive a more aggressive diuresis, monitoring of pulse oximetry and vital signs , cardiology consultation, daily weights, intake and output to assure negative fluid balance. Patient's medications should be reviewed and optimized. Patient should be counseled on nutritional modifications (low-salt diet). Physical therapy consultation should be considered to assess ability to perform ADLs. I feel this patient will require a multiple day hospitalization. (Mary DUNN,Kiel Gaston) Critical Care Note Critical Care Note Critical Care Time: 30-74 min (Rafael DUNN,Michael Bloom)
[2018-05-24 06:25] LABS: ABSOLUTE BASOPHIL COUNT 0.1 /CUMM (0.0-0.2); ABSOLUTE EOSINOPHIL COUNT 0.2 /CUMM (0.0-0.7); ABSOLUTE GRANULOCYTE CT 5.8 /CUMM (1.4-6.5); ABSOLUTE LYMPH COUNT 1.4 /CUMM (1.2-3.4); ABSOLUTE MONOCYTE COUNT 0.7 /CUMM (0.10-0.60); BASOPHIL % 0.7 % (0.0-2.0); EOSINOPHIL % 2.7 % (0-5); GRANULOCYTE % 70.5 % (42.2-75.2); HEMATOCRIT 26.1 % (37-47); MEAN CORPUSCULAR HGB CONC 32.8 G/DL (33.0-37.0); MEAN CORPUSCULAR VOLUME 91.6 FL (81.0-99.0); MEAN PLATELET VOLUME 8.8 FL (7.4-10.4); PLATELET COUNT 308 /CUMM (130-400); RBC DISTRIBUTION WIDTH 15.5 % (11.5-14.5); RED BLOOD CELL CT 2.85 /CUMM (4.20-5.40); WHITE BLOOD CELL COUNT 8.2 /CUMM (4.8-10.8)
--- NOTE | 2018-05-24 06:44 | RADIOLOGY REPORT ---
EXAMINATION: XR PORTABLE CHEST CLINICAL INFORMATION: Chest pain COMPARISON: 05/30/2017 TECHNIQUE: Portable frontal view of the chest was obtained. FINDINGS: Lung volumes are symmetric. In comparison to the prior examination there is increased prominence of the perihilar interstitium, suggesting vascular congestion. Trace pleural effusions may be present. No evidence of pneumothorax. The cardiac silhouette is enlarged. No acute osseous findings are seen. IMPRESSION: Mildly increased perihilar interstitial prominence, concerning for developing congestion in the proper clinical setting. Possible trace pleural effusions. Enlarged cardiac silhouette.
[2018-05-24] MEDS ORDERED: FUROSEMIDE40 M1 PO (08:52)
[2018-05-24] MEDS ORDERED: AMLODIPINE BESY10 M1 PO (08:54)
[2018-05-24] MEDS ORDERED: TRAMADOL HCL50 M1 PO (08:55)
[2018-05-24] MEDS ORDERED: FISH OIL 1,0001 EACH PO (08:55)
--- NOTE | 2018-05-24 09:56 | History & Physical ---
Cesar DUNNKatherine 05/24/18 0955: General Information and HPI MD Statement: I have seen and personally examined GREGOR ALAS and documented this H&P. The patient is a 77 year old F who presented with a patient stated chief complaint of WORSENING SHORTNESS OF BREATH ON REST AND EXERTION Source of Information: patient, old records Exam Limitations: no limitations History of Present Illness: This is a 77-year-old female with a past medical history of CKD stage IV, anemia , hypertension, CHF, hyperlipidemia, chronic venous insufficiency, that comes in to see us for 2 weeks of worsening dyspnea at rest and exertion, lower extremity edema, and mild left chest pressure. She states that the chest pressure is very mild, has been continuous, and is worse on exertion. It is not worse on palpation, movement, inspiration. She denies any concurrent cough or recent URI. The patient also complains of lower extremity edema that she says is somewhat better than a few days ago along with erythema to the mid calf which she says is usually until the knee. She also endorses orthopnea. The patient also complains of some recent nausea and "voice cracking". She has never had issues with her voice changing before. The patient also reports some issues with blood pressure control recently. She has kept a blood pressure log for the past month with average systolic blood pressures in the high 100s to low 200s. The patient sees Dr. Long as her individual small group instructor. Apparently she recently saw him recently and he increased her dose of amlodipine from 5 mg to 10 mg. The patient's other cardiac medications include hydralazine, spironolactone, isosorbide dinitrate, bistolic, Lasix, rosuvastatin. The patient also takes doxazosin. The patient denies any other symptoms including headache, vision change, loss of consciousness, falls, focal neuro deficits, fever, chills, abdominal pain, changes in urinary or bowel habits. The patient has no history of coronary artery disease. The patient sees Dakota Hager MD as her tie worker and last saw his OPHTHALMOLOGY TECHNICIAN on May 06. Her last echocardiogram was 1 year ago and showed good systolic function and stage I diastolic dysfunction. She states that she had a stress test about 2 years ago, cannot remember the results. She sees Dr. Danielson as her PCP and was supposed to see him this week. She was last hospitalized one year ago here for complaints of lower extremity edema and back pain and was ultimately sent to [facility] for physical therapy. The patient is and lives with her son on a 1 level house. She has a cane and walker but states that she does not use them often. She has no history of smoking, no drug use, rare alcohol use. Allergies/Medications Allergies: Coded Allergies: NO KNOWN ALLERGIES (UNKNOWN 04/24/17) Home Med list Amlodipine Besylate 10 MG TABLET 1 TAB PO DAILY HEART (Reported) Aspirin (Children's Aspirin) 81 MG TAB.CHEW 1 TAB PO DAILY HEART HEALTH ( Reported) Cholecalciferol (Vitamin D3) 1,000 UNIT TABLET 1 TAB PO DAILY VITAMIN SUPPORT (Reported) Doxazosin Mesylate (Cardura) 4 MG TABLET 1 TAB PO DAILY HEART (Reported) Furosemide 40 MG TABLET 1 TAB PO DAILY WATER RETENTION (Reported) Hydralazine HCl 100 MG TABLET 1 TAB PO TID HIGH BLOOD PRESSURE Isosorbide Mononitrate (Isosorbide Mononitrate ER) 60 MG TAB.ER.24H 1 TAB PO DAILY HIGH BLOOD PRESSURE Multivitamin (Multiple Vitamins) 1 EACH TABLET 1 TAB PO DAILY VITAMIN SUPPORT (Reported) Nebivolol HCl (Bystolic) 10 MG TABLET 1 TAB PO DAILY HEART (Reported) [place]-3 Fatty Acids/Fish Oil (Fish Oil 1,000 MG Capsule) 340 MG-1,000 MG CAPSULE 1 CAP PO DAILY SUPPLEMENT (Reported) Rosuvastatin Calcium (Crestor) 40 MG TABLET 1 TAB PO DAILY CHOLESTEROL ( Reported) Sevelamer Carbonate (Renvela) 800 MG TABLET 1 TAB PO WM Kidney failure Spironolactone 25 MG TABLET 0.5 TAB PO DAILY HIGH BLOOD PRESSURE Tramadol HCl 50 MG TABLET 1 TAB PO BIDP PRN PAIN (Reported) Vitamin E 200 UNIT CAPSULE 1 CAP PO DAILY SUPPLEMENT (Reported) Compliance With Home Meds: GOOD Past History Travel History Traveled to [place] past 21 day No Medical History Neurological: NONE EENT: NONE Cardiovascular: chronic venous insuff, diastolic CHF, hypertension, hyperlipidemia Respiratory: NONE Gastrointestinal: C.DIFF Hepatic: NONE Renal: chronic kidney disease Musculoskeletal: fracture, LUMBAR FX Psychiatric: NONE Endocrine: NONE Blood Disorders: anemia Cancer(s): NONE 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 , Age 44; Cause: HTN (hypertension). FATHER, , Age 68; Cause: ASHD (arteriosclerotic heart disease). Psychosocial History Who Do You Live With? self Services at Home: None Primary Language: [place] Island[place] Living Will? no Power of Preparation Supervisor [place]/HCP? no Functional Ability ADLs Independent: dressing, eating, toileting, bathing. 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 Review of Systems Review of Systems Constitutional: Reports: no symptoms, malaise, weakness. EENTM: Reports: no symptoms. Cardiovascular: Reports: see HPI, edema, orthopena, peripheral edema. Respiratory: Reports: orthopnea, short of breath. GI: Reports: no symptoms. Genitourinary: Reports: no symptoms. Musculoskeletal: Reports: no symptoms. Skin: Reports: no symptoms. Neurological/Psychological: Reports: no symptoms. Hematologic/Endocrine: Reports: no symptoms. Exam & Diagnostic Data Last 24 Hrs of Vital Signs/I&O Vital Signs Date Time Temp Pulse Resp B/P B/P Pulse O2 O2 Flow FiO2 Mean Ox Delivery Rate 05/24 1206 93 Nasal 2.0L Cannula 05/24 1158 63 190/72 16 1037 98.0 61 20 240/100 94 Nasal 2.0L Cannula 05/24 0856 97.6 64 20 157/74 95 Nasal 2.0L Cannula 05/24 0803 98.4 66 20 172/74 94 Nasal 2.0L Cannula 05/24 0645 98.6 102 20 200/72 05/24 0645 200/72 05/24 0644 102 20 208/88 93 Nasal 2.0L Cannula 05/24 0615 93 Nasal Cannula 05/24 0610 98.6 108 20 211/100 93 Nasal 2.0L Cannula 05/24 0553 111 85 Room Air Intake & Output 05/24 1600 05/24 0800 05/24 0000 Intake Total 50 0 Output Total 400 350 Balance -350 -350 Intake, Oral 50 0 Output, Urine 400 350 Patient 213 lb 204 lb Weight Weight Reported by Patient Measurement Method Physical Exam General Appearance Alert, Oriented X3, Cooperative, Mild Distress Skin No Rashes, No Breakdown, No Significant Lesion Skin Temp/Moisture Exam: Warm/Dry Sepsis Skin Exam (color): Normal for Ethnicity HEENT Atraumatic, PERRLA, EOMI, Mucous Membr. moist/pink Cardiovascular Regular Rate, Normal S1, Normal S2, No Murmurs Lungs mild crackles bilaterally, using accessory muscles of respiration Abdomen Normal Bowel Sounds, Soft, No Tenderness, No Hepatospenomegaly, No Masses Neurological Normal Speech, Strength at 5/5 X4 Ext, Normal Tone, Sensation Intact, Cranial Nerves 3-12 NL Extremities No Clubbing, No Cyanosis, Normal Pulses, lower ext edema, 2+, and erythema, no pain on palpation Vascular Normal Pulses, Pulses Symmetrical Sepsis Peripheral Pulse Location: Radial Last 24 Hrs of Labs/Ray: Laboratory Tests 05/24/18 0940: Urine Color YEL, Urine Clarity CLEAR, Urine pH 6.5, Ur Specific [place] 1.015, Urine Protein 100 H, Urine Ketones NEG, Urine Nitrite NEG, Urine Bilirubin NEG, Urine Urobilinogen 0.2, Ur Leukocyte Esterase NEG, Ur Microscopic SEDIMENT EXAMINED, Urine RBC 1-3, Urine WBC 1-3 H, Ur Epithelial Cells FEW, Urine Bacteria FEW H, Urine Hemoglobin TRACE-INTACT, Urine Glucose NEG 05/24/18 0610: Anion Gap 14, Estimated GFR 16 L, BUN/Creatinine Ratio 14.1, Glucose 103 H, Calcium 8.8, Total Bilirubin 0.4, Direct Bilirubin 0.3, AST 19, ALT 22, Alkaline Phosphatase 69, Troponin I 0.04, Nym-R-Cjiztqpzwvf Pept 24965 H, Total Protein 6.5, Albumin 3.8, Amylase 54, Lipase 153, D-Dimer High Sensitivty 633 H, CBC w Diff NO MAN DIFF REQ, RBC 2.85 L, MCV 91.6, MCH 30.0, MCHC 32.8 L, RDW 15.5 H , MPV 8.8, Gran % 70.5, Lymphocytes % 17.6 L, Monocytes % 8.5, Eosinophils % 2.7, Basophils % 0.7, Absolute Granulocytes 5.8, Absolute Lymphocytes 1.4, Absolute Monocytes 0.7 H, Absolute Eosinophils 0.2, Absolute Basophils 0.1 05/24/18 0602: Bxj-I-Uqrybxyteod Pept Cancelled Assessment/Plan Assessment: This is a 77-year-old female with a past medical history of CKD stage IV, anemia , hypertension, CHF, hyperlipidemia, chronic venous insufficiency, that comes in to see us for 2 weeks of worsening dyspnea at rest and exertion, lower extremity edema, mild left chest pressure worse on exertion, and hypertension on BP log book. Her blood pressure was recently increased from 5 mg to 10 mg but she has continued to have high blood pressures for the past month, sometimes in the low 200s. She is usually on 40 mg of Lasix daily but has continued to have lower extremity edema and complains now of orthopnea. Her last echocardiogram showed stage I diastolic dysfunction but preserved ejection fraction. On physical exam , the patient is using her accessory muscles of breathing and notes worsening shortness of breath when walking to the bathroom. In the ED, her vitals showed temperature 98.6, heart rate 111, respiratory rate 20, blood pressure 211/100 which decreased to 172/74 with 10 mg hydralazine push. Oxygen saturation at admission was 85% on room air which increased to 94% on 2 L and with IV Lasix 80 mg. On the floors, patient had a repeat blood pressure done which showed 240/100 in the left arm and 220/100 in the right arm. Her labs showed anemia with a hemoglobin of 8.6 which is baseline for her, mild hypernatremia of 146, BUN of 41, creatinine 2.9 which is chronic for her. Troponin was negative, proBNP was 17,800. LFTs were normal. Chest x-ray showed mildly increasing perihilar interstitial prominence concerning for developing congestion. In the ED, the patient was given hydralazine push 10 mg, Lasix 80 mg IV, Tylenol , Nitro-Bid Assessment -Mild chest pressure rule out ACS -Acute hypoxic respiratory failure secondary to CHF exacerbation versus pulmonary embolism versus as yet undiagnosed pulmonary pathology. -Hypertensive urgency -Stage IV CKD -Chronic anemia -Mild hypernatremia Plan -Admit patient to telemetry for closer monitoring -Cardiac consult with Dakota Hager MD -Start patient on Lasix 40 IV starting tomorrow -Lower extremity doppler US -Trop and EKG noon and 6pm 05/24 -Daily weights, strict I's and O's -Echocardiogram -TRC nebs -For continued high blood pressure, give another 10 mg push of hydralazine and start her home blood pressure/cardiac medications. -Nephrology consult -Follow-up BEP tomorrow to reassess sodium. No fluids for now. -Start patient's other home medications including tramadol, doxazosin, multivitamin, vitamin E/D. CHF diet Patient is full code DVT prophylaxis with Alps and heparin subcu As Ranked By This Provider Problem List: 1. Chronic kidney disease 2. Peripheral edema 3. CHF (congestive heart failure) 4. Acute hypoxemic respiratory failure 5. Hypertensive urgency Core Measures/Misc (07/26) Acute Coronary Syndrome ACS Diagnosis: No Congestive Heart Failure Congestive Heart Failure Diagnosis No Cerebrovascular Accident CVA/TIA Diagnosis: No VTE (View Protocol) VTE Risk Factors Age>40 No Mechanical VTE Prophylaxis d/t N/A MechProphylax Ordered No VTE Pharm Prophylaxis d/t NA PharmProphylax ordered Sepsis (View protocol) Sepsis Present: No If YES complete Sepsis Event Note If YES complete Sepsis Event Note WheatleyManohardarleen 05/24/18 1425: Core Measures/Misc (07/26) Sepsis (View protocol) If YES complete Sepsis Event Note If YES complete Sepsis Event Note Attending MD Review Statement Attending Statement Attending MD Statement: examined this patient, discuss w/resident/PA/RECREATIONAL FACILITIES MOTEL MANAGER, agreed w/resident/PA/RECREATIONAL FACILITIES MOTEL MANAGER, reviewed EMR data (avail), discussed with nursing, discussed with case mgmt Attending Assessment/Plan: acute chf exacerbation in pt with preserved ef. cardiology consult appreciated and pt got iv lasix 80mg in ER and will start her on iv lasix 40 qd. Pt may have worsening resp status secondary to hypertensive urgency. Will try to control her bp better. will get serial trops. Hypertensive urgency- resumed her home meds. will get nephrology cosult. she says she has been having bp control issues for decades and it started after she had kids . will f/u on nephrology recommendations. will see if she had renal dopplers as an outpatient. B/l LE swelling with miild erythema- will get doppler lower extremities. CKD- cr at baseline. will cont to monitor closely. dw pt the care plan.
[2018-05-24 10:37] VITALS: BP 240/100
[2018-05-24 11:58] VITALS: BP 190/72
--- NOTE | 2018-05-24 12:30 | Cons- Cardiology ---
General Information and HPI Consulting Request Date of Consult: 05/24/18 Requested By: Yanet Wheatley MD Reason for Consult: Shortness of breath, hypertension Source of Information: patient, family, old records History of Present Illness: This is a 77-year-old female with a past medical history of difficult to control hypertension, CKD, anemia, heart failure with preserved ejection fraction, mild aortic stenosis, sleep apnea on CPAP, chronic venous insufficiency, and hyperlipidemia who presents to [facility] with a chief complaint of increased fatigue and intermittent mild shortness of breath at rest and with exertion; not associated with significant chest pain or palpitations; she does check her blood pressure at home and readings have continued to be high. She had recent office visits in my office with adjustments to her blood pressure medications and reports that she has been compliance with the medications recently. She overall just does not feel well. She denies any fever, productive cough, worsening lower extremity edema, headache, focal weakness, or slurring of speech. Allergies/Medications Allergies: Coded Allergies: NO KNOWN ALLERGIES (UNKNOWN 04/24/17) Home Med List: Amlodipine Besylate 10 MG TABLET 1 TAB PO DAILY HEART (Reported) Aspirin (Children's Aspirin) 81 MG TAB.CHEW 1 TAB PO DAILY HEART HEALTH ( Reported) Cholecalciferol (Vitamin D3) 1,000 UNIT TABLET 1 TAB PO DAILY VITAMIN SUPPORT (Reported) Doxazosin Mesylate (Cardura) 4 MG TABLET 1 TAB PO DAILY HEART (Reported) Furosemide 40 MG TABLET 1 TAB PO DAILY WATER RETENTION (Reported) Hydralazine HCl 100 MG TABLET 1 TAB PO TID HIGH BLOOD PRESSURE Isosorbide Mononitrate (Isosorbide Mononitrate ER) 60 MG TAB.ER.24H 1 TAB PO DAILY HIGH BLOOD PRESSURE Multivitamin (Multiple Vitamins) 1 EACH TABLET 1 TAB PO DAILY VITAMIN SUPPORT (Reported) Nebivolol HCl (Bystolic) 10 MG TABLET 1 TAB PO DAILY HEART (Reported) [place]-3 Fatty Acids/Fish Oil (Fish Oil 1,000 MG Capsule) 340 MG-1,000 MG CAPSULE 1 CAP PO DAILY SUPPLEMENT (Reported) Rosuvastatin Calcium (Crestor) 40 MG TABLET 1 TAB PO DAILY CHOLESTEROL ( Reported) Sevelamer Carbonate (Renvela) 800 MG TABLET 1 TAB PO WM Kidney failure Spironolactone 25 MG TABLET 0.5 TAB PO DAILY HIGH BLOOD PRESSURE Tramadol HCl 50 MG TABLET 1 TAB PO BIDP PRN PAIN (Reported) Vitamin E 200 UNIT CAPSULE 1 CAP PO DAILY SUPPLEMENT (Reported) Current Medications: Current Medications Sig/Duong Start time Last Medication Dose Route Stop Time Status Admin Acetaminophen 650 MG ONCE ONE 05/24 0615 DC 05/24 PO 05/24 0616 0615 Acetaminophen 0 .STK-MED ONE 05/24 0609 DC PO Amlodipine Besylate 10 MG DAILY 05/24 1133 AC PO Aspirin 81 MG DAILY 05/24 1133 AC PO Cholecalciferol 1,000 IU DAILY 05/24 1133 AC PO Doxazosin Mesylate 4 MG DAILY 05/24 1134 AC PO Furosemide 40 MG DAILY 05/25 0900 CAN PO Furosemide 40 MG DAILY 05/25 0900 AC IV Furosemide 80 MG ONCE ONE 05/24 0615 DC 05/24 IV 05/24 06 0615 Furosemide 0 .STK-MED ONE 05/24 0609 DC IV Heparin Sodium 5,000 UNIT Q8 05/24 1400 AC (Porcine) SC Hydralazine HCl 100 MG TID 05/24 1400 AC PO Hydralazine HCl 10 MG ONCE ONE 05/24 1145 DC IV 05/24 1146 Hydralazine HCl 10 MG ONCE ONE 05/24 0645 DC 05/24 IV 05/24 0646 0645 Hydralazine HCl 0 .STK-MED ONE 05/24 0640 DC .ROUTE Isosorbide 60 MG DAILY 05/24 1136 AC Mononitrate PO Multivitamins 1 TAB DAILY 05/24 1136 AC Therapeutic PO Nebivolol 10 MG DAILY 05/24 1136 AC PO Nitroglycerin 0 .STK-MED ONE 05/24 0608 OK TOP Nitroglycerin 2 GM STAT STA 05/24 0603 DC 05/24 TOP 05/24 0604 0615 Pravastatin Sodium 20 MG 1700 05/24 1700 AC PO Sevelamer Carbonate 800 MG WM 05/24 1200 AC PO Spironolactone 12.5 MG DAILY 05/24 1137 AC PO Tramadol HCl 50 MG BID PRN 05/24 1145 AC PO Vitamin E 200 IU DAILY 05/24 1138 AC PO Review of Systems Review of Systems: Review of systems as per HPI. The remainder of a 10 point review of systems was reviewed and was otherwise negative. 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 , Age 44; Cause: HTN (hypertension). FATHER, , Age 68; Cause: ASHD (arteriosclerotic heart disease). Psychosocial History Where Do You Live? Home Who Do You Live With? self Services at Home: None Primary Language: German Smoking Status: Unknown If Ever Smoked Living Will? no Power of Substance Abuse Nurse/HCP? no Functional Ability ADLs Independent: dressing, eating, toileting, bathing. 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 Exam & Diagnostic Data Vital Signs and I&O Vital Signs Date Time Temp Pulse Resp B/P B/P Pulse O2 O2 Flow FiO2 Mean Ox Delivery Rate 05/24 1206 93 Nasal 2.0L Cannula 05/24 1158 63 190/72 05/24 1037 98.0 61 20 240/100 94 Nasal 2.0L Cannula 05/24 0856 97.6 64 20 157/74 95 Nasal 2.0L Cannula 05/24 0803 98.4 66 20 172/74 94 Nasal 2.0L Cannula 05/24 0645 98.6 102 20 200/72 05/24 0645 200/72 05/24 0644 102 20 208/88 93 Nasal 2.0L Cannula 05/24 0615 93 Nasal Cannula 05/24 0610 98.6 108 20 211/100 93 Nasal 2.0L Cannula 05/24 0553 111 85 Room Air Intake & Output 05/24 1600 05/24 0800 05/24 0000 05/23 1600 05/23 0800 05/23 0000 Intake Total 50 0 Output Total 400 350 Balance -350 -350 Intake, Oral 50 0 Output, Urine 400 350 Patient 213 lb 204 lb Weight Weight Reported by Patient Measurement Method Physical Exam: General: no apparent distress. Alert. On nasal cannula Eyes: No obvious scleral icterus. HEENT: No jugular venous distention or abnormal jugular venous pulsations. Cardiovascular: Normal intensity S1/S2. Regular Respiratory: Mildly decreased air entry at the bases Abdomen: Soft, nontender with no guarding or rebound tenderness. Musculoskeletal: No clubbing or cyanosis noted; 2+ lower extremity edema Skin: Stasis changes Neurologic: No gross focal deficits noted. Lymph: No gross lymphadenopathy. Labs/Ray Results: Laboratory Tests 05/24 05/24 0940 0610 Chemistry Sodium (137 - 145 mmol/L) 146 H Potassium (3.5 - 5.1 mmol/L) 3.9 Chloride (98 - 107 mmol/L) 107 Carbon Dioxide (22 - 30 mmol/L) 25 Anion Gap (5 - 16) 14 BUN (7 - 17 mg/dL) 41 H Creatinine (0.5 - 1.0 mg/dL) 2.9 H Estimated GFR (>60 ml/min) 16 L BUN/Creatinine Ratio (7 - 25 %) 14.1 Glucose (65 - 99 mg/dL) 103 H Calcium (8.4 - 10.2 mg/dL) 8.8 Total Bilirubin (0.2 - 1.3 mg/dL) 0.4 Direct Bilirubin (< 0.4 mg/dL) 0.3 AST (14 - 36 U/L) 19 ALT (9 - 52 U/L) 22 Alkaline Phosphatase (<127 U/L) 69 Troponin I (< 0.11 ng/ml) 0.04 Gpt-Z-Eovjgemzbjr Pept (<125 pg/mL) 23591 H Total Protein (6.3 - 8.2 g/dL) 6.5 Albumin (3.5 - 5.0 g/dL) 3.8 Amylase (30 - 110 U/L) 54 Lipase (23 - 300 U/L) 153 Coagulation D-Dimer High Sensitivty (0 - 243 ng/ml) 633 H Hematology CBC w Diff NO MAN DIFF REQ WBC (4.8 - 10.8 /CUMM) 8.2 RBC (4.20 - 5.40 /CUMM) 2.85 L Hgb (12.0 - 16.0 G/DL) 8.6 L Hct (37 - 47 %) 26.1 L MCV (81.0 - 99.0 FL) 91.6 MCH (27.0 - 31.0 PG) 30.0 MCHC (33.0 - 37.0 G/DL) 32.8 L RDW (11.5 - 14.5 %) 15.5 H Plt Count (130 - 400 /CUMM) 308 MPV (7.4 - 10.4 FL) 8.8 Gran % (42.2 - 75.2 %) 70.5 Lymphocytes % (20.5 - 51.1 %) 17.6 L Monocytes % (1.7 - 9.3 %) 8.5 Eosinophils % (0 - 5 %) 2.7 Basophils % (0.0 - 2.0 %) 0.7 Absolute Granulocytes (1.4 - 6.5 /CUMM) 5.8 Absolute Lymphocytes (1.2 - 3.4 /CUMM) 1.4 Absolute Monocytes (0.10 - 0.60 /CUMM) 0.7 H Absolute Eosinophils (0.0 - 0.7 /CUMM) 0.2 Absolute Basophils (0.0 - 0.2 /CUMM) 0.1 Urines Urine Color (YEL,AMB,STR) YEL Urine Clarity (CLEAR) CLEAR Urine pH (5.0 - 8.0) 6.5 Ur Specific [place] (1.001 - 1.035) 1.015 Urine Protein (NEG,<30 MG/DL) 100 H Urine Ketones (NEG) NEG Urine Nitrite (NEG) NEG Urine Bilirubin (NEG) NEG Urine Urobilinogen (0.1 - 1.0 EU/dl) 0.2 Ur Leukocyte Esterase (NEG) NEG Ur Microscopic SEDIMENT EXAMINED Urine RBC (0 - 5 /HPF) 1-3 Urine WBC (0 - 2 /HPF) 1-3 H Ur Epithelial Cells (NONE,FEW) FEW Urine Bacteria (NEG/NONE) FEW H Urine Hemoglobin (NEG) TRACE-INTACT Urine Glucose (N MG/DL) NEG 05/24 0602 Chemistry Mmv-E-Xzjbsxmmsmw Pept Cancelled Diagnostic Data EKG Results Tracing was personally reviewed and shows sinus bradycardia at 56 bpm with left ventricular hypertrophy poor R-wave progression, nonspecific STT wave normality CXR Results IMPRESSION: Mildly increased perihilar interstitial prominence, concerning for developing congestion in the proper clinical setting. Possible trace pleural effusions. Enlarged cardiac silhouette. Other Results Echo Normal left ventricular ejection fraction visually estimated at 65 %. Abnormal relaxation filling pattern of the left ventricle for age (stage 1 diastolic dysfunction). Left ventricular wall thickness mildly increased. Mild left atrial dilatation. Moderate mitral annular calcification. Mild mitral regurgitation. Diffuse thickening (sclerosis) of the aortic valve cusps without reduced excursion. Mild aortic stenosis. Mild tricuspid regurgitation. Right ventricular systolic pressure estimated at 44 mmHg. Francisco Garibay M.D. (Electronically Signed) Final Date: 30 April 2017 12:27 Assessment/Plan Assessment/Plan 1. Hypertensive urgency 2. Acute on chronic heart failure with preserved ejection fraction 3. Chronic kidney disease 4. History of mild aortic stenosis 5. Sleep apnea 6. Chronic venous insufficiency 7. Hyperlipidemia 8. Chronic anemia Patient does have some volume overload and agree with IV diuretics as well as additional control of her hypertensive urgency but would avoid rapid overcorrection to avoid iatrogenic hypotension/hypoperfusion; follow serial troponins and obtain a repeat echocardiogram. Recommend changing the Bystolic to labetalol 300 mg p.o. twice daily. If her shortness of breath continues consider VQ scan; in the meantime recommend obtaining lower extremity Dopplers. Consider renal consultation as she is well-known to the renal team as well. Continue on telemetry. Eder Hager MD [facility] Consult Acknowledgment - Thank you for your consult request.
--- NOTE | 2018-05-24 14:25 | Admission Certification ---
Admission Certification Certification Statement - As attending physician, I certify that at the time of - admission, based on clinical presentation, severity of - symptoms, need for further diagnostic testing and - therapeutic interventions, and risk of adverse outcomes - without in-hospital treatment, in my clinical assessment, - this patient requires an acute hospital stay for a minimum - of two nights or longer. I have also considered psychsocial - factors such as support system, advanced age, financial - issues, cognitive issues, and failed out-patient treatments, - past re-admission history, safety of patient, and lack of - compliance as applicable. Specific rationale supporting this admission is: acute chf exacerbation with hypertensive urgency
[2018-05-24 15:18] VITALS: BP 110/60
[2018-05-24 15:56] VITALS: BP 142/60
--- NOTE | 2018-05-24 16:07 | ULTRASOUND REPORT ---
EXAMINATION: US TRIPLEX OF LOWER EXTREMITIES, BILATERAL CLINICAL INFORMATION: Bilateral pitting edema swelling COMPARISON: None TECHNIQUE: Color-flow triplex imaging with spectral analysis and compression Doppler were performed on the lower extremities. FINDINGS: Respiratory variation, normal compression and augmented flow are noted throughout the lower extremities. The visualized common femoral vein, superficial femoral vein, profunda femoral vein, popliteal vein and midcalf peroneal and posterior tibial venous segments show no evidence of deep venous thrombosis. There is no Galarza's cyst. IMPRESSION: No evidence of deep venous thrombosis involving the bilateral lower extremities.
--- NOTE | 2018-05-24 21:50 | ECHOCARDIOGRAM REPORT ---
GREGOR ALAS Age: 77 : 1940 Gender: F Exam Date: 05/24/2018 18:15 Exam Location: [facility] Ht (in): 58 Wt (lb): 204 BSA: 2.00 BP: 240 / 100 Ordering Physician: Katherine Guerrero MD Referring Physician: Dakota Hager M.D. Technologist: Christine Baugh RDCS Room Number: 187 Indications: Heart failure Rhythm: Sinus Technical Quality: fair FINDINGS Left Ventricle Normal size left ventricle. Left ventricular wall thickness moderately increased. Normal left ventricular ejection fraction estimated at 60-65%. Right Ventricle Normal right ventricular size and function. Right Atrium Normal right atrial size. Left Atrium Moderate left atrial dilatation. Mitral Valve Moderate mitral annular calcification. Mild mitral regurgitation. Mild Mitral stenosis. Aortic Valve Diffuse thickening of the aortic valve cusps with reduced excursion. Mild aortic stenosis. Tricuspid Valve Tricuspid valve is normal in structure and function. Mild tricuspid regurgitation. Right ventricular systolic pressure estimated to be elevated at50 mmHg. Pulmonic Valve Pulmonic valve not well visualized, grossly normal. Pericardium Small pericardial effusion. Great Vessels Normal size aortic root. CONCLUSIONS Normal left ventricular systolic function with moderate concentric hypertrophy. Moderate left atrial enlargement. At least type 2 Diastolic left ventricular dysfunction with suggestion of elevated left ventricular end diastolic pressure by doppler.Moderate Pulmonary hypertension.Mild Mitral stenosis. Uriel Odell M.D. (Electronically Signed) Final Date: 24 May 2018 21:44 MEASUREMENTS (Male / Female) Normal Values 2D ECHO LV Diastolic Diameter PLAX 5.3 cm 4.2 - 5.9 / 3.9 - 5.3 cm LV Systolic Diameter PLAX 2.8 cm 2.1 - 4.0 cm LV Fractional Shortening PLAX 47.2 % 25 - 46 % LV Ejection Fraction 2D Teich 78.2 % IVS Diastolic Thickness 1.6 cm LVPW Diastolic Thickness 1.4 cm LV Relative Wall Thickness 0.6 RV Internal Dim ED PLAX 3.1 cm 1.9 - 3.8 cm LVOT Diameter 1.9 cm Aortic Root Diameter 2.7 cm LA Systolic Diameter LX 4.9 cm 3.0 - 4.0 / 2.7 - 3.8 cm LA Volume 78.0 cm 18 - 58 / 22 - 52 cm Ascending Aorta Diameter 3.5 cm DOPPLER AV Peak Velocity 212.0 cm/s AV Peak Gradient 18.0 mmHg AV Mean Velocity 153.0 cm/s AV Mean Gradient 11.0 mmHg AV Velocity Time Integral 52.1 cm LVOT Peak Velocity 149.0 cm/s LVOT Peak Gradient 8.9 mmHg LVOT Mean Velocity 109.0 cm/s LVOT Mean Gradient 5.0 mmHg LVOT Velocity Time Integral 34.5 cm LVOT Stroke Volume 97.8 cm AV Area Cont Eq vti 1.9 cm AV Area Cont Eq pk 2.0 cm MV Peak Velocity 171.0 cm/s MV Peak Gradient 11.7 mmHg MV Mean Velocity 93.1 cm/s MV Mean Gradient 4.0 mmHg Mitral E Point Velocity 132.0 cm/s Mitral A Point Velocity 119.0 cm/s Mitral E to A Ratio 1.1 MV PHT Velocity 179.0 cm/s MV Deceleration Hayes 870.0 cm/s MV Pressure Half Time 61.7 ms MV Area PHT 3.6 cm MV Deceleration Time 317.0 ms TR Peak Velocity 336.0 cm/s TR Peak Gradient 45.2 mmHg Right Atrial Pressure 5.0 mmHg Pulmonary Artery Systolic Pressure 50.2 mmHg Right Ventricular Systolic Pressure 50.2 mmHg PV Peak Velocity 154.0 cm/s PV Peak Gradient 9.5 mmHg PV Mean Velocity 92.7 cm/s PV Mean Gradient 4.0 mmHg PV Velocity Time Integral 41.1 cm LV E' Lateral Velocity 6.8 cm/s Mitral E to LV E' Lateral Ratio 19.4 LV E' Septal Velocity 5.6 cm/s Mitral E to LV E' Septal Ratio 23.4
[2018-05-24 22:01] VITALS: BP 142/64
[2018-05-25 07:05] VITALS: BP 134/68
--- NOTE | 2018-05-25 07:19 | PN- Housestaff ---
Cesar DUNN,Katherine 05/25/18 0719: Subjective Follow-up For: chf exacerbation hypertensive urgency Subjective: Patient seen and examined. She states that overall she feels good. She denies any further chest pressure. She has been walking to the bathroom with minimal shortness of breath. She has less edema than yesterday. Vitals are stable and wnl, blood pressure is good at 134/68. She is usually on CPAP so was on BIPAP overnight. Review of Systems Constitutional: Reports: no symptoms. EENTM: Reports: no symptoms. Cardiovascular: Reports: peripheral edema. Respiratory: Reports: no symptoms. Gastrointestinal: Reports: no symptoms. Genitourinary: Reports: no symptoms. Musculoskeletal: Reports: back pain, joint pain. Skin: Reports: no symptoms. Neurological/Psychological: Reports: no symptoms. Objective Last 24 Hrs of Vital Signs/I&O Vital Signs Date Time Temp Pulse Resp B/P B/P Pulse O2 O2 Flow FiO2 Mean Ox Delivery Rate 05/25 0705 98.1 58 20 134/68 95 BIPAP 05/25 0537 59 95 05/25 0056 54 92 05/25 0000 CPAP 3.0L 05/24 2201 97.9 60 16 142/64 95 Nasal Cannula 05/24 2150 80 94 05/24 2136 142/60 05/24 1956 Nasal 3.0L Cannula 05/24 1759 56 142/60 05/24 1556 54 16 142/60 05/24 1536 Nasal 2.0L Cannula 05/24 1357 65 184/80 05/24 1356 65 184/80 05/24 1355 65 180/84 05/24 1206 93 Nasal 2.0L Cannula 05/24 1158 63 190/72 05/24 1037 98.0 61 20 240/100 94 Nasal 2.0L Cannula 05/24 1030 65 240/100 05/24 0856 97.6 64 20 157/74 95 Nasal 2.0L Cannula Intake & Output 05/25 1600 05/25 0800 05/25 0000 Intake Total 220 140 Output Total 600 Balance -380 140 Intake, Oral 220 140 Output, Urine 600 Patient 213 lb Weight Weight Bed scale Measurement Method Physical Exam General Appearance: Alert, Oriented X3, Cooperative, No Acute Distress Skin: No Rashes, No Breakdown, No Significant Lesion Skin Temp/Moisture Exam: Warm/Dry Sepsis Skin Exam (color): Normal for Ethnicity HEENT: Atraumatic, PERRLA, EOMI, Mucous Membr. moist/pink Cardiovascular: Regular Rate, Normal S1, Normal S2, No Murmurs Lungs: faint crackles at the bases Abdomen: Normal Bowel Sounds, Soft, No Tenderness, No Hepatospenomegaly Neurological: Normal Speech Extremities: No Clubbing, No Cyanosis, Normal Pulses, No Tenderness/Swelling, 2+ pitting edema and CVS changes Vascular: Normal Pulses, Pulses Symmetrical Current Medications: Current Medications Sig/Duong Start time Last Medication Dose Route Stop Time Status Admin Albuterol Sulfate 3 ML Q4P PRN 05/24 1300 AC 05/24 INH 1249 Amlodipine Besylate 10 MG DAILY 05/24 1133 AC 05/24 PO 1355 Aspirin 81 MG DAILY 05/24 1133 AC 05/24 PO 1355 Cholecalciferol 1,000 IU DAILY 05/24 1133 AC 05/24 PO 1356 Doxazosin Mesylate 4 MG DAILY 05/24 1134 AC 05/24 PO 1355 Furosemide 40 MG DAILY 05/25 0900 CAN PO Furosemide 40 MG DAILY 05/25 0900 AC IV Heparin Sodium 5,000 UNIT Q8 05/24 1400 AC 05/25 (Porcine) SC 0542 Hydralazine HCl 100 MG TID 05/24 1400 AC 05/24 PO 2136 Hydralazine HCl 10 MG ONCE ONE 05/24 1145 DC 05/24 IV 05/24 1146 1030 Isosorbide 60 MG DAILY 05/24 1136 AC 05/24 Mononitrate PO 1356 Labetalol HCl 300 MG BID 05/24 1800 AC 05/24 PO 1759 Multivitamins 1 TAB DAILY 05/24 1136 AC 05/24 Therapeutic PO 1356 Nebivolol 10 MG DAILY 05/24 1136 DC PO Pravastatin Sodium 20 MG 1700 05/24 1700 AC 05/24 PO 1758 Sevelamer Carbonate 800 MG WM 05/24 1200 AC 05/24 PO 1758 Spironolactone 12.5 MG DAILY 05/24 1137 AC 05/24 PO 1353 Tramadol HCl 50 MG BID PRN 05/24 1145 AC 05/25 PO 0301 Vitamin E 200 IU DAILY 05/24 1138 AC 05/24 PO 1359 Last 24 Hrs of Lab/Ray Results Last 24 Hrs of Labs/Mics: Laboratory Tests 05/25/18 0616: Anion Gap 13, Estimated GFR 14 L, BUN/Creatinine Ratio 13.4 05/24/18 1735: Troponin I 0.02 05/24/18 1335: Troponin I 0.03 05/24/18 0940: Urine Color YEL, Urine Clarity CLEAR, Urine pH 6.5, Ur Specific [place] 1.015, Urine Protein 100 H, Urine Ketones NEG, Urine Nitrite NEG, Urine Bilirubin NEG, Urine Urobilinogen 0.2, Ur Leukocyte Esterase NEG, Ur Microscopic SEDIMENT EXAMINED, Urine RBC 1-3, Urine WBC 1-3 H, Ur Epithelial Cells FEW, Urine Bacteria FEW H, Urine Hemoglobin TRACE-INTACT, Urine Glucose NEG Assessment/Plan Assessment: This is a 77-year-old female with a past medical history of CKD stage IV, anemia , hypertension, CHF, hyperlipidemia, chronic venous insufficiency, that comes in to see us for 2 weeks of worsening dyspnea at rest and exertion, lower extremity edema, mild left chest pressure worse on exertion, and hypertension on BP log book. Her blood pressure was recently increased from 5 mg to 10 mg but she has continued to have high blood pressures for the past month, sometimes in the low 200s. She is usually on 40 mg of Lasix daily but has continued to have lower extremity edema and complains now of orthopnea. Her last echocardiogram showed stage I diastolic dysfunction but preserved ejection fraction. On physical exam , the patient is using her accessory muscles of breathing and notes worsening shortness of breath when walking to the bathroom. In the ED, her vitals showed temperature 98.6, heart rate 111, respiratory rate 20, blood pressure 211/100 which decreased to 172/74 with 10 mg hydralazine push. Oxygen saturation at admission was 85% on room air which increased to 94% on 2 L and with IV Lasix 80 mg. On the floors, patient had a repeat blood pressure done which showed 240/100 in the left arm and 220/100 in the right arm. Her labs showed anemia with a hemoglobin of 8.6 which is baseline for her, mild hypernatremia of 146, BUN of 41, creatinine 2.9 which is chronic for her. Troponin was negative, proBNP was 17,800. LFTs were normal. Chest x-ray showed mildly increasing perihilar interstitial prominence concerning for developing congestion. In the ED, the patient was given hydralazine push 10 mg, Lasix 80 mg IV, Tylenol , Nitro-Bid Assessment -Mild chest pressure rule out ACS -Acute hypoxic respiratory failure secondary to CHF exacerbation versus pulmonary embolism versus as yet undiagnosed pulmonary pathology. -Hypertensive urgency -Stage IV CKD -Chronic anemia -Mild hypernatremia Plan -Admit patient to telemetry for closer monitoring -Cardiac consult with Dakota Hager MD -Start patient on Lasix 40 IV starting tomorrow -Lower extremity doppler US -Trop and EKG noon and 6pm 05/24 -Daily weights, strict I's and O's -Echocardiogram -TRC nebs -For continued high blood pressure, give another 10 mg push of hydralazine and start her home blood pressure/cardiac medications. -Nephrology consult -Follow-up BEP tomorrow to reassess sodium. No fluids for now. -Start patient's other home medications including tramadol, doxazosin, multivitamin, vitamin E/D. CHF diet Patient is full code DVT prophylaxis with Alps and heparin subcu Problem List: 1. Hypertensive urgency 2. CHF (congestive heart failure) Pain Ratin Pain Location: back and knees Pain Goal: Pain 4 or less Pain Plan: as needed Tomorrow's Labs & Rationales: Yanet Leon 05/25/18 1342: Attending MD Review Statement Attending Statement Attending MD Statement: examined this patient, discuss w/resident/PA/SOFTWARE TEST DEVELOPER, agreed w/resident/PA/SOFTWARE TEST DEVELOPER, reviewed EMR data (avail), discussed with nursing, discussed with case mgmt Attending Assessment/Plan: CHF exacerbation- reveiwed echo with pt . shows stage 2 diastolic dysfunction, ef normal and RVSP is 50mm. currently on iv lasix. will f/u on cardio recommendatiosn. d/w cardiology the care plan. Hypertensive urgency- pts bp is better today. will see how she does. Lower extremity edema- doppler negative for dvt. d/w pt the care plan.
--- NOTE | 2018-05-25 11:45 | PN- Cardiology ---
Subjective Subjective: The patient is awake, alert There has been in a approximate 1.3 L net output over the past 24 hours The events of the last 24 hours as well as telemetry were reviewed. Review of Systems: The review of systems is negative for chest pains, palpitations nor lightheadedness. The remainder of the 14 point review of systems is noncontributory with the exception of above. Objective Vital Signs and I&Os Vital Signs Date Time Temp Pulse Resp B/P B/P Pulse O2 O2 Flow FiO2 Mean Ox Delivery Rate 05/25 0852 70 162/64 05/25 0852 70 162/64 05/25 0852 70 162/64 05/25 0850 70 162/64 05/25 0800 Nasal 1.5L Cannula 05/25 0705 98.1 58 20 134/68 95 BIPAP 05/25 0537 59 95 05/25 0056 54 92 05/25 0000 CPAP 3.0L 05/24 2201 97.9 60 16 142/64 95 Nasal Cannula 05/24 2150 80 94 05/24 2136 142/60 05/24 1956 Nasal 3.0L Cannula 05/24 1759 56 142/60 05/24 1556 54 16 142/60 05/24 1536 Nasal 2.0L Cannula 05/24 1357 65 184/80 05/24 1356 65 184/80 05/24 1355 65 180/84 05/24 1206 93 Nasal 2.0L Cannula 05/24 1158 63 190/72 Intake & Output 05/25 1600 05/25 0800 05/25 0000 05/24 1600 05/24 0800 05/24 0000 Intake Total 220 140 290 0 Output Total 600 1100 350 Balance -380 140 -810 -350 Intake, Oral 220 140 290 0 Output, Urine 600 1100 350 Patient 213 lb 213 lb 204 lb Weight Weight Bed scale Reported by Patient Measurement Method Physical Exam: General: Nontoxic, no apparent distress. HEENT: Sclera and conjunctiva within normal limits, without xanthelasmas. Neck: Carotids 2+ without bruits. Respiratory: Scattered rales, air movement is good, without accessory respiratory muscle use. Heart: Regular rate and rhythm, without murmurs, without JVD. Abdomen: Soft, nontender, no masses, normoactive bowel sounds. Extremities: Without clubbing, cyanosis, mild edema. Neuro: Nonfocal exam, strength, 5 out of 5 Skin: Within normal limits without lesions. Psych: Mood and affect: Normal Current Medications: Current Medications Sig/Duong Start time Last Medication Dose Route Stop Time Status Admin Albuterol Sulfate 3 ML Q4P PRN 05/24 1300 AC 05/24 INH 1249 Amlodipine Besylate 10 MG DAILY 05/24 1133 AC 05/25 PO 0852 Aspirin 81 MG DAILY 05/24 1133 AC 05/25 PO 0851 Cholecalciferol 1,000 IU DAILY 05/24 1133 AC 05/25 PO 0853 Doxazosin Mesylate 4 MG DAILY 05/24 1134 AC 05/25 PO 0852 Furosemide 40 MG DAILY 05/25 0900 CAN PO Furosemide 40 MG DAILY 05/25 0900 AC 05/25 IV 0854 Heparin Sodium 5,000 UNIT Q8 05/24 1400 AC 05/25 (Porcine) SC 0542 Hydralazine HCl 100 MG TID 05/24 1400 AC 05/25 PO 0850 Hydralazine HCl 10 MG ONCE ONE 05/24 1145 DC 05/24 IV 05/24 1146 1030 Isosorbide 60 MG DAILY 05/24 1136 AC 05/25 Mononitrate PO 0852 Labetalol HCl 300 MG BID 05/24 1800 AC 05/25 PO 0852 Multivitamins 1 TAB DAILY 05/24 1136 AC 05/25 Therapeutic PO 0852 Nebivolol 10 MG DAILY 05/24 1136 DC PO Pravastatin Sodium 20 MG 1700 05/24 1700 AC 05/24 PO 1758 Sevelamer Carbonate 800 MG WM 05/24 1200 AC 05/25 PO 0852 Spironolactone 12.5 MG DAILY 05/24 1137 AC 05/25 PO 0853 Tramadol HCl 50 MG .STK-MED ONE 05/25 0258 DC PO 05/25 0259 Tramadol HCl 50 MG BID PRN 05/24 1145 AC 05/25 PO 0301 Vitamin E 200 IU DAILY 05/24 1138 AC 05/25 PO 0853 Results Last 48 Hrs of Labs/Mics: Laboratory Tests 05/25/18 0616: Anion Gap 13, Estimated GFR 14 L, BUN/Creatinine Ratio 13.4 05/24/18 1735: Troponin I 0.02 05/24/18 1335: Troponin I 0.03 05/24/18 0940: Urine Color YEL, Urine Clarity CLEAR, Urine pH 6.5, Ur Specific [place] 1.015, Urine Protein 100 H, Urine Ketones NEG, Urine Nitrite NEG, Urine Bilirubin NEG, Urine Urobilinogen 0.2, Ur Leukocyte Esterase NEG, Ur Microscopic SEDIMENT EXAMINED, Urine RBC 1-3, Urine WBC 1-3 H, Ur Epithelial Cells FEW, Urine Bacteria FEW H, Urine Hemoglobin TRACE-INTACT, Urine Glucose NEG 05/24/18 0610: Anion Gap 14, Estimated GFR 16 L, BUN/Creatinine Ratio 14.1, Glucose 103 H, Calcium 8.8, Total Bilirubin 0.4, Direct Bilirubin 0.3, AST 19, ALT 22, Alkaline Phosphatase 69, Troponin I 0.04, Hxy-[id number] Pept 47362 H, Total Protein 6.5, Albumin 3.8, Amylase 54, Lipase 153, D-Dimer High Sensitivty 633 H, CBC w Diff NO MAN DIFF REQ, RBC 2.85 L, MCV 91.6, MCH 30.0, MCHC 32.8 L, RDW 15.5 H , MPV 8.8, Gran % 70.5, Lymphocytes % 17.6 L, Monocytes % 8.5, Eosinophils % 2.7, Basophils % 0.7, Absolute Granulocytes 5.8, Absolute Lymphocytes 1.4, Absolute Monocytes 0.7 H, Absolute Eosinophils 0.2, Absolute Basophils 0.1 05/24/18 0602: Vnr-J-Lqloyhwobql Pept Cancelled Assessment/Plan Assessment/Plan 1. Hypertensive urgency 2. Acute on chronic heart failure with preserved ejection fraction 3. Chronic kidney disease 4. History of mild aortic stenosis 5. Sleep apnea 6. Chronic venous insufficiency 7. Hyperlipidemia 8. Chronic anemia Dyspnea: The patient presents with dyspnea, consistent with acute on chronic congestive heart failure with preserved LV systolic function. She has had an approximate 1.3 L net output overnight and is symptomatically improved. Her acute process may have been exacerbated by her hypertensive urgency, and her medication regimen has now been changed to labetalol. We will further titrate as tolerated. We have discussed strict sodium restriction in the setting of her congestive heart failure. Hypertension: Suboptimally controlled. Her regimen has been changed to include labetalol, and we will track on this. Further addition of agent such as clonidine may be considered if further reduction is necessary. Edema: Multifactorial including her underlying cardiac issues as well as possibly contribution from her regimen of amlodipine. Leg elevation is encouraged, and we will attempt compression stockings as well. Continue telemetry? Yes
--- NOTE | 2018-05-25 14:07 | Cons- Nephrology ---
General Information and HPI Consulting Request Date of Consult: 05/25/18 Requested By: Dioni DUNN,Yanet Hampton Reason for Consult: CKD Source of Information: patient, old records Exam Limitations: no limitations History of Present Illness: The patient is a 77-year-old woman with past medical history most significant for stage IV chronic kidney disease with a baseline creatinine in the high twos - thought to be secondary to diabetes and hypertension - follows with Dr. Long, [facility] [place] - awaiting Heme evaluation, anemia - not on an TRACEY, HFpEF, sleep apnea - on CPAP who presents with SOB. The patient was last seen by Dr. Long - at that visit, BP 200/95. She was recommended to increase hydralazine back to 300mg total/day and amlodipine was increased to 10mg. She was continued on 40mg PO lasix daily, bystolic 10mg daily, doxazosin 4mg daily, and imdur 60mg daily. The patient now comes in with SOB. Increased swelling of legs. Not clear of weight gain. Denies orthopnea/PND. No associated chest pain (although did admit mild chest pain to other providers). No cough or fever. On presentation, blood pressure 211/100 with heart rate 111 - afebrile - O2 sat 85% on room air. Labs notable for SCr 2.9, Na 146, K 3.9, bicarb 25, Hg 8.6, WBC 8.2. UA 100mg/dl protein, 1-3 RBC, 1-3 WBC. Lower ext doppler negative. Chest x-ray with perihilar interstitial prominence with possible trace pleural effusions. TTE with normal systolic function but Type 2 diastolic dysfunction with suggestion of elevated filling pressures - also with moderate pulm HTN. She was treated with supplemental O2 and given 80mg IV lasix. She was given IV hydralazine for her HTN. Cards following - switched from bystolic to labetalol. Should note that BP regimen includes spironolactone 12.5mg daily which she may have been on before. SCr 3.2 today. 1.4L UOP in the last day. Given another 40mg IV lasix today. Feels better. Leg swelling better. Allergies/Medications Allergies: Coded Allergies: NO KNOWN ALLERGIES (UNKNOWN 04/24/17) Home Med List: Amlodipine Besylate 10 MG TABLET 1 TAB PO DAILY HEART (Reported) Aspirin (Children's Aspirin) 81 MG TAB.CHEW 1 TAB PO DAILY HEART HEALTH ( Reported) Cholecalciferol (Vitamin D3) 1,000 UNIT TABLET 1 TAB PO DAILY VITAMIN SUPPORT (Reported) Doxazosin Mesylate (Cardura) 4 MG TABLET 1 TAB PO DAILY HEART (Reported) Furosemide 40 MG TABLET 1 TAB PO DAILY WATER RETENTION (Reported) Hydralazine HCl 100 MG TABLET 1 TAB PO TID HIGH BLOOD PRESSURE Isosorbide Mononitrate (Isosorbide Mononitrate ER) 60 MG TAB.ER.24H 1 TAB PO DAILY HIGH BLOOD PRESSURE Multivitamin (Multiple Vitamins) 1 EACH TABLET 1 TAB PO DAILY VITAMIN SUPPORT (Reported) Nebivolol HCl (Bystolic) 10 MG TABLET 1 TAB PO DAILY HEART (Reported) [place]-3 Fatty Acids/Fish Oil (Fish Oil 1,000 MG Capsule) 340 MG-1,000 MG CAPSULE 1 CAP PO DAILY SUPPLEMENT (Reported) Rosuvastatin Calcium (Crestor) 40 MG TABLET 1 TAB PO DAILY CHOLESTEROL ( Reported) Sevelamer Carbonate (Renvela) 800 MG TABLET 1 TAB PO WM Kidney failure Spironolactone 25 MG TABLET 0.5 TAB PO DAILY HIGH BLOOD PRESSURE Tramadol HCl 50 MG TABLET 1 TAB PO BIDP PRN PAIN (Reported) Vitamin E 200 UNIT CAPSULE 1 CAP PO DAILY SUPPLEMENT (Reported) Current Medications: Current Medications Sig/Duong Start time Last Medication Dose Route Stop Time Status Admin Albuterol Sulfate 3 ML Q4P PRN 05/24 1300 AC 05/24 INH 1249 Amlodipine Besylate 10 MG DAILY 05/24 1133 AC 05/25 PO 0852 Aspirin 81 MG DAILY 05/24 1133 AC 05/25 PO 0851 Cholecalciferol 1,000 IU DAILY 05/24 1133 AC 05/25 PO 0853 Doxazosin Mesylate 4 MG DAILY 05/24 1134 AC 05/25 PO 0852 Furosemide 40 MG DAILY 05/25 0900 AC 05/25 IV 0854 Heparin Sodium 5,000 UNIT Q8 05/24 1400 AC 05/25 (Porcine) SC 0542 Hydralazine HCl 100 MG TID 05/24 1400 AC 05/25 PO 0850 Isosorbide 60 MG DAILY 05/24 1136 AC 05/25 Mononitrate PO 0852 Labetalol HCl 300 MG BID 05/24 1800 AC 05/25 PO 0852 Multivitamins 1 TAB DAILY 05/24 1136 AC 05/25 Therapeutic PO 0852 Pravastatin Sodium 20 MG 1700 05/24 1700 AC 05/24 PO 1758 Sevelamer Carbonate 800 MG WM 05/24 1200 AC 05/25 PO 0852 Spironolactone 12.5 MG DAILY 05/24 1137 AC 05/25 PO 0853 Tramadol HCl 50 MG .STK-MED ONE 05/25 0258 DC PO 05/25 0259 Tramadol HCl 50 MG BID PRN 05/24 1145 05/25 PO 0301 Vitamin E 200 IU DAILY 05/24 1138 05/25 PO 0853 Review of Systems Review of Systems: Complete 14 point ROS neg except as per HPI Past History Travel History Traveled to [place] past 21 day No Medical History Blood Transfusion Hx: Yes Neurological: NONE EENT: NONE Cardiovascular: diastolic CHF, hypertension, hyperlipidemia, chronic venous insuffcny Respiratory: NONE Gastrointestinal: C.DIFF Hepatic: NONE Renal: chronic kidney disease Musculoskeletal: fracture, LUMBAR FX Psychiatric: NONE Endocrine: NONE Blood Disorders: anemia Cancer(s): NONE CORN SHREDDER/Reproductive: NONE Surgical History Surgical History: appendectomy (age 19), TONSILS podiatric surgery Family History Relations & Conditions If Any: MOTHER (CVA/obese). , Age 44; Cause: HTN (hypertension). FATHER, , Age 68; Cause: ASHD (arteriosclerotic heart disease). Psychosocial History Where Do You Live? Home Who Do You Live With? self Services at Home: None Primary Language: Slovenian Smoking Status: Unknown If Ever Smoked Living Will? no Power of Company Miner Blasting/HCP? no Functional Ability ADLs Independent: dressing, eating, toileting, bathing. Ambulation: independent (TAPPER HELPER) IADLs Independent: shopping, housework, finances, food prep, telephone, transportation , medication admin. Exam & Diagnostic Data Vital Signs and I&O Vital Signs Date Time Temp Pulse Resp B/P B/P Pulse O2 O2 Flow FiO2 Mean Ox Delivery Rate 05/25 0852 70 162/64 05/25 0852 70 162/64 05/25 0852 70 162/64 05/25 0850 70 162/64 05/25 0800 Nasal 1.5L Cannula 05/25 0705 98.1 58 20 134/68 95 BIPAP 05/25 0537 59 95 05/25 0056 54 92 05/25 0000 CPAP 3.0L 05/24 2201 97.9 60 16 142/64 95 Nasal Cannula 05/24 2150 80 94 05/24 2136 142/60 05/24 1956 Nasal 3.0L Cannula 05/24 1759 56 142/60 05/24 1556 54 16 142/60 05/24 1536 Nasal 2.0L Cannula Intake & Output 05/25 1600 05/25 0400 05/24 1600 05/24 0400 05/23 1600 05/23 0400 Intake Total 220 140 290 Output Total 600 1450 Balance -380 140 -1160 Intake, Oral 220 140 290 Output, Urine 600 1450 Patient 213 lb 213 lb Weight Weight Bed scale Reported by Patient Measurement Method Physical Exam: Gen - ok appearing Head - NCAT Eyes - anicteric sclera, EOMI Neck - supple, JVP not clearly up CV - RRR, no m/r/g Chest - clear, no w/r/r Abd - soft, NTND Upper ext - warm, no edema Lower ext - warm, no significant edema Skin - no rash or jaundice Neuro - AOX3, grossly nonfocal Results Pertinent Lab Results: Laboratory Tests 05/25 05/24 05/24 05/24 0616 1735 1335 0940 Chemistry Sodium (137 - 145 mmol/L) 147 H Potassium (3.5 - 5.1 mmol/L) 3.8 Chloride (98 - 107 mmol/L) 107 Carbon Dioxide (22 - 30 mmol/L) 27 Anion Gap (5 - 16) 13 BUN (7 - 17 mg/dL) 43 H Creatinine (0.5 - 1.0 mg/dL) 3.2 H Estimated GFR (>60 ml/min) 14 L BUN/Creatinine Ratio (7 - 25 %) 13.4 Troponin I (< 0.11 ng/ml) 0.02 0.03 Urines Urine Color (YEL,AMB,STR) YEL Urine Clarity (CLEAR) CLEAR Urine pH (5.0 - 8.0) 6.5 Ur Specific [place] (1.001 - 1.035) 1.015 Urine Protein (NEG,<30 MG/DL) 100 H Urine Ketones (NEG) NEG Urine Nitrite (NEG) NEG Urine Bilirubin (NEG) NEG Urine Urobilinogen (0.1 - 1.0 EU/dl) 0.2 Ur Leukocyte Esterase (NEG) NEG Ur Microscopic SEDIMENT EXAMINED Urine RBC (0 - 5 /HPF) 1-3 Urine WBC (0 - 2 /HPF) 1-3 H Ur Epithelial Cells (NONE,FEW) FEW Urine Bacteria (NEG/NONE) FEW H Urine Hemoglobin (NEG) TRACE-INTACT Urine Glucose (N MG/DL) NEG 05/24 05/24 0610 0602 Chemistry Sodium (137 - 145 mmol/L) 146 H Potassium (3.5 - 5.1 mmol/L) 3.9 Chloride (98 - 107 mmol/L) 107 Carbon Dioxide (22 - 30 mmol/L) 25 Anion Gap (5 - 16) 14 BUN (7 - 17 mg/dL) 41 H Creatinine (0.5 - 1.0 mg/dL) 2.9 H Estimated GFR (>60 ml/min) 16 L BUN/Creatinine Ratio (7 - 25 %) 14.1 Glucose (65 - 99 mg/dL) 103 H Calcium (8.4 - 10.2 mg/dL) 8.8 Total Bilirubin (0.2 - 1.3 mg/dL) 0.4 Direct Bilirubin (< 0.4 mg/dL) 0.3 AST (14 - 36 U/L) 19 ALT (9 - 52 U/L) 22 Alkaline Phosphatase (<127 U/L) 69 Troponin I (< 0.11 ng/ml) 0.04 Dbx-F-Sqytbnuoeiu Pept (<125 pg/mL) 15672 H Cancelled Total Protein (6.3 - 8.2 g/dL) 6.5 Albumin (3.5 - 5.0 g/dL) 3.8 Amylase (30 - 110 U/L) 54 Lipase (23 - 300 U/L) 153 Coagulation D-Dimer High Sensitivty (0 - 243 ng/ml) 633 H Hematology CBC w Diff NO MAN DIFF REQ WBC (4.8 - 10.8 /CUMM) 8.2 RBC (4.20 - 5.40 /CUMM) 2.85 L Hgb (12.0 - 16.0 G/DL) 8.6 L Hct (37 - 47 %) 26.1 L MCV (81.0 - 99.0 FL) 91.6 MCH (27.0 - 31.0 PG) 30.0 MCHC (33.0 - 37.0 G/DL) 32.8 L RDW (11.5 - 14.5 %) 15.5 H Plt Count (130 - 400 /CUMM) 308 MPV (7.4 - 10.4 FL) 8.8 Gran % (42.2 - 75.2 %) 70.5 Lymphocytes % (20.5 - 51.1 %) 17.6 L Monocytes % (1.7 - 9.3 %) 8.5 Eosinophils % (0 - 5 %) 2.7 Basophils % (0.0 - 2.0 %) 0.7 Absolute Granulocytes (1.4 - 6.5 /CUMM) 5.8 Absolute Lymphocytes (1.2 - 3.4 /CUMM) 1.4 Absolute Monocytes (0.10 - 0.60 /CUMM) 0.7 H Absolute Eosinophils (0.0 - 0.7 /CUMM) 0.2 Absolute Basophils (0.0 - 0.2 /CUMM) 0.1 Imaging/Other Studies: Chest X-ray, TTE, Doppler US reviewed Assessment/Plan Assessment/Recommendations Assessment: Stage IV CKD - proteinuric - 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 HTN - Not well controlled on presentation. Unfortunately current renal function is somewhat precluding her from initiation of RAAS inhibition and we are left with sympathetic nervous system and vasodilators/diuretics in order to manage her HTN. Chest x-ray seemed wet on admission and TTE suggestive of elevated filling pressures as well. BP is better now. I think it's reasonable to continue with the current regimen and uptitrate labetalol which perhaps will be more effective for her than bystolic. Anemia - Discussions to receive Epogen as an outpatient. Should note that she is iron deficient and may benefit from IV iron. Can give Epogen here as well if BP improves. Recommendations: -Agree with current Cards recommendations for BP - uptitrate labetalol if SBP remains >160 tomorrow -Clonidine may be considered as additional agent if needed -40mg IV lasix daily reasonable for now - will need to closely monitor renal function -125mg IV ferrlecit every other day x8 doses -Epogen 10,000U prior to discharge Please call [phone] with ?'s
[2018-05-25 14:22] VITALS: BP 130/60
[2018-05-25 18:43] VITALS: BP 150/62
[2018-05-25 22:07] VITALS: BP 126/72
[2018-05-26 06:29] VITALS: BP 138/70
--- NOTE | 2018-05-26 07:21 | PN- Housestaff ---
Cesar DUNN,Katherine 05/26/18 0721: Subjective Follow-up For: CHF exacerbation Hypertensive urgency Subjective: Patient seen and examined. She states that she still feels sluggish and fatigued. Her vitals today are stable with blood pressure of 130/70. She is saturating 90-92% on 3 L. She is not on any home oxygen. Take CPAP at night for her NITHIN at home. She states that her breathing is "okay" and has decreased swelling in her legs. No other complaints. Review of Systems Constitutional: Reports: no symptoms, malaise, weakness. EENTM: Reports: no symptoms. Cardiovascular: Reports: peripheral edema. Respiratory: Reports: no symptoms. Gastrointestinal: Reports: no symptoms. Genitourinary: Reports: no symptoms. Musculoskeletal: Reports: no symptoms. Skin: Reports: no symptoms. Neurological/Psychological: Reports: no symptoms. Hematologic/Endocrine: Reports: no symptoms. Objective Last 24 Hrs of Vital Signs/I&O Vital Signs Date Time Temp Pulse Resp B/P B/P Pulse O2 O2 Flow FiO2 Mean Ox Delivery Rate 05/26 1541 97.6 77 20 182/78 92 Nasal 1.5L Cannula 05/26 0921 95 Nasal 1.5L Cannula 05/26 0910 94 Nasal 3.0L Cannula 05/26 0842 136/72 05/26 0837 134/72 05/26 0837 134/72 05/26 0835 68 134/72 05/26 0629 99.8 73 20 138/70 90 Nasal Cannula 05/26 0040 77 92 05/25 2207 99.1 73 20 126/72 92 05/25 2135 04 Nasal 3.0L Cannula 05/25 2134 78 95 05/25 2120 73 126/72 05/25 2120 73 126/72 05/25 2035 Nasal 1.5L Cannula 05/25 1843 61 150/62 Intake & Output 05/26 1600 05/26 0800 05/26 0000 Intake Total 400 120 580 Output Total 900 450 350 Balance -500 -330 230 Intake, IV 100 Intake, Oral 400 120 480 Number 0 Bowel Movements Output, Urine 900 450 350 Patient 213 lb Weight Physical Exam General Appearance: Alert, Oriented X3, Cooperative, No Acute Distress Skin: No Rashes, No Breakdown, No Significant Lesion Skin Temp/Moisture Exam: Warm/Dry Sepsis Skin Exam (color): Normal for Ethnicity HEENT: Atraumatic, EOMI, Mucous Membr. moist/pink Cardiovascular: Regular Rate, Normal S1, Normal S2, No Murmurs Lungs: Clear to Auscultation, Normal Air Movement Abdomen: Normal Bowel Sounds, Soft, No Tenderness Neurological: Normal Speech Extremities: No Clubbing, No Cyanosis, Normal Pulses, No Tenderness/Swelling Vascular: Normal Pulses, Pulses Symmetrical Sepsis Peripheral Pulse Location: Radial Current Medications: Current Medications Sig/Duong Start time Last Medication Dose Route Stop Time Status Admin Acetaminophen 325 MG ONCE ONE 05/26 1530 DC PO 05/26 1531 Acetaminophen 325 MG ONCE ONE 05/26 0515 DC 05/26 PO 05/26 0516 0512 Acetaminophen 325 MG Q6P PRN 05/25 1500 AC 05/26 PO 1454 Albuterol Sulfate 3 ML Q4P PRN 05/24 1300 AC 05/24 INH 1249 Amlodipine Besylate 10 MG DAILY 05/24 1133 AC 05/26 PO 0837 Aspirin 81 MG DAILY 05/24 1133 AC 05/26 PO 0836 Cholecalciferol 1,000 IU DAILY 05/24 1133 AC 05/26 PO 0835 Doxazosin Mesylate 4 MG DAILY 05/24 1134 AC 05/26 PO 0837 Ferric Sodium 125 MG Q48H 05/25 2100 DC 05/25 Gluconate Complex IV 06/08 2159 2119 Sodium Chloride 100 ML Ferric Sodium 125 MG Q48 05/25 1900 CAN Gluconate Complex IV Furosemide 40 MG DAILY 05/27 0900 AC PO Furosemide 40 MG DAILY 05/25 0900 DC 05/26 IV 0841 Heparin Sodium 5,000 UNIT Q8 05/24 1400 AC 05/26 (Porcine) SC 1447 Hydralazine HCl 100 MG TID 05/24 1400 AC 05/26 PO 1447 Isosorbide 60 MG DAILY 05/24 1136 AC 05/26 Mononitrate PO 0842 Labetalol HCl 300 MG BID 05/24 1800 AC 05/26 PO 0837 Multivitamins 1 TAB DAILY 05/24 1136 AC 05/26 Therapeutic PO 0835 Patient Medication 1 ED ONE ONE 05/25 1715 DC Teaching ED 05/25 1716 Pravastatin Sodium 20 MG 1700 05/24 1700 AC 05/25 PO 1729 Sevelamer Carbonate 800 MG WM 05/24 1200 AC 05/26 PO 1225 Spironolactone 12.5 MG DAILY 05/24 1137 AC 05/26 PO 0836 Tramadol HCl 50 MG .STK-MED ONE 05/25 1929 DC PO 05/25 1930 Tramadol HCl 50 MG BID PRN 05/24 1145 AC 05/25 PO 1934 Vitamin E 200 IU DAILY 05/24 1138 AC 05/26 PO 0835 Last 24 Hrs of Lab/Ray Results Last 24 Hrs of Labs/Mics: Laboratory Tests 05/26/18 0653: Anion Gap 13, Estimated GFR 13 L, BUN/Creatinine Ratio 12.9 Assessment/Plan Assessment: This is a 77-year-old female with a past medical history of CKD stage IV, anemia , hypertension, CHF, hyperlipidemia, chronic venous insufficiency, that comes in to see us for 2 weeks of worsening dyspnea at rest and exertion, lower extremity edema, mild left chest pressure worse on exertion, and hypertension on BP log book. Her blood pressure was recently increased from 5 mg to 10 mg but she has continued to have high blood pressures for the past month, sometimes in the low 200s. She is usually on 40 mg of Lasix daily but has continued to have lower extremity edema and complains now of orthopnea. Her last echocardiogram showed stage I diastolic dysfunction but preserved ejection fraction. On physical exam , the patient is using her accessory muscles of breathing and notes worsening shortness of breath when walking to the bathroom. In the ED, her vitals showed temperature 98.6, heart rate 111, respiratory rate 20, blood pressure 211/100 which decreased to 172/74 with 10 mg hydralazine push. Oxygen saturation at admission was 85% on room air which increased to 94% on 2 L and with IV Lasix 80 mg. On the floors, patient had a repeat blood pressure done which showed 240/100 in the left arm and 220/100 in the right arm. Her labs showed anemia with a hemoglobin of 8.6 which is baseline for her, mild hypernatremia of 146, BUN of 41, creatinine 2.9 which is chronic for her. Troponin was negative, proBNP was 17,800. LFTs were normal. Chest x-ray showed mildly increasing perihilar interstitial prominence concerning for developing congestion. In the ED, the patient was given hydralazine push 10 mg, Lasix 80 mg IV, Tylenol , Nitro-Bid Assessment -Mild chest pressure rule out ACS -Acute hypoxic respiratory failure secondary to CHF exacerbation versus pulmonary embolism versus as yet undiagnosed pulmonary pathology. -Hypertensive urgency -Stage IV CKD - proteinuria likely secondary to diabetic neuropathy and hypertensive nephrosclerosis -Chronic anemia -Mild hypernatremia Plan -Switched patient's IV Lasix to 40 by mouth daily. Patient is on spironolactone 12.5. -As per cardiac consult yesterday the patient was started on labetalol 300 mg twice a day and as per renal, can uptitrate as needed for her blood pressure if SBP greater than 160. We're continuing her other blood pressure medications hydralazine 100 mg 3 times a day, amlodipine 10. -Lower extremity doppler US was negative -Trop and EKG were negative for ACS -Daily weights, strict I's and O's -Echocardiogram showed at least type II diastolic dysfunction with moderate pulmonary hypertension and ejection fraction 60-65% with elevated filling pressures. -TRC nebs -Renal is seeing the patient and suggested giving Epogen if her blood pressure stabilizes, 10,000 units prior to discharge. Also IV ferrlicet 125 mg every other day for 8 doses. As per renal we cannot give our RAAS secondary to her renal issues. -Encourage low salt diet -Started patient's other home medications including tramadol, doxazosin, multivitamin, vitamin E/D. CHF diet Patient is full code DVT prophylaxis with Alps and heparin subcu Problem List: 1. Hypertensive urgency 2. CHF (congestive heart failure) 3. Low back pain at multiple sites Pain Ratin Pain Location: back and knees Pain Goal: Pain 4 or less Pain Plan: as needed tylenol Tomorrow's Labs & Rationales: bep Yanet Wheatley 05/26/18 1236: Attending MD Review Statement Attending Statement Attending MD Statement: examined this patient, discuss w/resident/PA/SHRUB GROWER, agreed w/resident/PA/SHRUB GROWER, reviewed EMR data (avail), discussed with nursing, discussed with case mgmt Attending Assessment/Plan: CHF exacerbation- reveiwed echo with pt . shows stage 2 diastolic dysfunction, ef normal and RVSP is 50mm. currently on iv lasix. will f/u on cardio recommendatiosn. d/w cardiology the care plan. switch to po lasix 40mg po daily starting tomorrow. Creatinine going up. recheck in am. Hypertensive urgency- pts bp is better today. again pt was counselled on compliance with medications and low sodium diet. Lower extremity edema- doppler negative for dvt.
--- NOTE | 2018-05-26 10:30 | PN- Cardiology ---
Subjective Subjective: The patient is awake, alert, feels improved; however, is concerned about blood pressure The events of the last 24 hours as well as telemetry were reviewed. Review of Systems: The review of systems is negative for chest pains, palpitations nor lightheadedness. The remainder of the 14 point review of systems is noncontributory with the exception of above. Objective Vital Signs and I&Os Vital Signs Date Time Temp Pulse Resp B/P B/P Pulse O2 O2 Flow FiO2 Mean Ox Delivery Rate 05/26 0921 95 Nasal 1.5L Cannula 05/26 0842 136/72 05/26 0837 134/72 05/26 0837 134/72 05/26 0835 68 134/72 05/26 0629 99.8 73 20 138/70 90 Nasal Cannula 05/26 0040 77 92 05/25 2207 99.1 73 20 126/72 92 05/25 2135 04 Nasal 3.0L Cannula 05/25 2134 78 95 05/25 2120 73 126/72 05/25 2120 73 126/72 05/25 2035 Nasal 1.5L Cannula 05/25 1843 61 150/62 05/25 1521 Nasal 2.0L Cannula 05/25 1459 83 170/88 05/25 1422 98.0 63 20 130/60 95 Intake & Output 05/26 1600 05/26 0800 05/26 0000 05/25 1600 05/25 0800 05/25 0000 Intake Total 120 580 510 220 140 Output Total 450 350 600 Balance -330 230 510 -380 140 Intake, IV 100 10 Intake, Oral 120 480 500 220 140 Number 0 Bowel Movements Output, Urine 450 350 600 Patient 213 lb 213 lb Weight Weight Bed scale Measurement Method Physical Exam: General: Nontoxic, no apparent distress. HEENT: Sclera and conjunctiva within normal limits, without xanthelasmas. Neck: Carotids 2+ without bruits. Respiratory: Clear to auscultation, air movement is good, without accessory respiratory muscle use. Heart: Regular rate and rhythm, without murmurs, without JVD. Abdomen: Soft, nontender, no masses, normoactive bowel sounds. Extremities: Without clubbing, cyanosis, without edema. Neuro: Nonfocal exam, strength, 5 out of 5 Skin: Within normal limits without lesions. Psych: Mood and affect: Normal Current Medications: Current Medications Sig/Duong Start time Last Medication Dose Route Stop Time Status Admin Acetaminophen 325 MG ONCE ONE 05/26 0515 DC 05/26 PO 05/26 0516 0512 Acetaminophen 325 MG Q6P PRN 05/25 1500 AC 05/26 PO 0450 Albuterol Sulfate 3 ML Q4P PRN 05/24 1300 AC 05/24 INH 1249 Amlodipine Besylate 10 MG DAILY 05/24 1133 AC 05/26 PO 0837 Aspirin 81 MG DAILY 05/24 1133 AC 05/26 PO 0836 Cholecalciferol 1,000 IU DAILY 05/24 1133 AC 05/26 PO 0835 Doxazosin Mesylate 4 MG DAILY 05/24 1134 AC 05/26 PO 0837 Ferric Sodium 125 MG Q48H 05/25 2100 AC 05/25 Gluconate Complex IV 06/08 215 2119 Sodium Chloride 100 ML Ferric Sodium 125 MG Q48 05/25 1900 CAN Gluconate Complex IV Furosemide 40 MG DAILY 05/25 0900 AC 05/26 IV 0841 Heparin Sodium 5,000 UNIT Q8 05/24 1400 AC 05/26 (Porcine) SC 0501 Hydralazine HCl 100 MG TID 05/24 1400 AC 05/26 PO 0835 Isosorbide 60 MG DAILY 05/24 1136 AC 05/26 Mononitrate PO 0842 Labetalol HCl 300 MG BID 05/24 1800 AC 05/26 PO 0837 Multivitamins 1 TAB DAILY 05/24 1136 AC 05/26 Therapeutic PO 0835 Patient Medication 1 ED ONE ONE 05/25 1715 DC Teaching ED 05/25 1716 Pravastatin Sodium 20 MG 1700 05/24 1700 AC 05/25 PO 1729 Sevelamer Carbonate 800 MG WM 05/24 1200 AC 05/26 PO 0835 Spironolactone 12.5 MG DAILY 05/24 1137 AC 05/26 PO 0836 Tramadol HCl 50 MG .STK-MED ONE 05/25 1929 DC PO 05/25 1930 Tramadol HCl 50 MG BID PRN 05/24 1145 AC 05/25 PO 1934 Vitamin E 200 IU DAILY 05/24 1138 AC 05/26 PO 0835 Results Last 48 Hrs of Labs/Mics: Laboratory Tests 05/26/18 0653: Anion Gap 13, Estimated GFR 13 L, BUN/Creatinine Ratio 12.9 05/25/18 0616: Anion Gap 13, Estimated GFR 14 L, BUN/Creatinine Ratio 13.4 05/24/18 1735: Troponin I 0.02 05/24/18 1335: Troponin I 0.03 Assessment/Plan Assessment/Plan 1. Hypertensive urgency 2. Acute on chronic heart failure with preserved ejection fraction 3. Chronic kidney disease 4. History of mild aortic stenosis 5. Sleep apnea 6. Chronic venous insufficiency 7. Hyperlipidemia 8. Chronic anemia Dyspnea: The patient presents with dyspnea, consistent with acute on chronic congestive heart failure with preserved LV systolic function. She has had an approximate 1.3 L net output since admission, and is symptomatically improved. Her acute process may have been exacerbated by her hypertensive urgency. Blood pressure control is improved with her current regimen.. We will further titrate as tolerated. We have discussed strict sodium restriction in the setting of her congestive heart failure. Hypertension: Control is improved. Further titration will be performed as an outpatient Edema: Multifactorial including her underlying cardiac issues as well as possibly contribution from her regimen of amlodipine. Leg elevation is encouraged, and we will attempt compression stockings as well. Continue telemetry? No
--- NOTE | 2018-05-26 11:04 | PN- Nephrology ---
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 HTN - Much better controlled on current regimen. PATO - Rising SCr - likely 2/2 relative hypotension with improved BP control although cannot rule out overdiuresis. It's tricky because she still has L basilar crackles on exam. Will need to have her really walk to see how dyspneic she is. May need to restart IV diuretics tomorrow if SCr improved/stable depending on clinical status. Anemia - Discussions to receive Epogen as an outpatient. Should note that she is iron deficient and may benefit from IV iron. Can give Epogen here as well if BP improves. Suggestion: -Cont current regimen -OK to switch back to 40mg PO lasix daily -125mg IV ferrlecit every other day x8 doses -Epogen 10,000U prior to discharge Please call [phone] with ?'s Subjective Subjective: SCr up to 3.4 950cc UOP Had gotten 80mg IV lasix and then 40mg IV lasix daily for the last 2 days Breathing OK - did not walk much - more limited by pain in knees SBP 120's-130's Objective Vital Signs and I&Os Vital Signs Date Time Temp Pulse Resp B/P B/P Pulse O2 O2 Flow FiO2 Mean Ox Delivery Rate 05/26 0921 95 Nasal 1.5L Cannula 05/26 0842 136/72 05/26 0837 134/72 05/26 0837 134/72 05/26 0835 68 134/72 05/26 0629 99.8 73 20 138/70 90 Nasal Cannula 05/26 0040 77 92 05/257 99.1 73 20 126/72 92 05/25 2135 04 Nasal 3.0L Cannula 05/25 2134 78 95 05/25 2120 73 126/72 05/25 2120 73 126/72 05/25 2035 Nasal 1.5L Cannula 05/25 1843 61 150/62 05/25 1521 Nasal 2.0L Cannula 05/25 1459 83 170/88 05/25 1422 98.0 63 20 130/60 95 Intake & Output 05/26 1600 05/26 0400 05/25 1600 05/25 0400 05/24 1600 05/24 0400 Intake Total 120 580 730 140 290 Output Total 450 083 003 8140 Balance -330 230 130 140 -1160 Intake, IV 100 10 Intake, Oral 120 480 720 140 290 Number 0 Bowel Movements Output, Urine 450 [phone] Patient 213 lb 213 lb 213 lb Weight Weight Bed scale Reported by Patient Measurement Method Physical Exam: Gen - ok appearing HEENT - JVP visible CV - RRR, no m/r/g Chest - L basilar crackles Abd - soft, NTND Ext - warm, no significant pitting edema Neuro - AOX3, grossly nonfocal Current Medications: Current Medications Sig/Duong Start time Last Medication Dose Route Stop Time Status Admin Acetaminophen 325 MG ONCE ONE 05/26 0515 DC 05/26 PO 05/26 0516 0512 Acetaminophen 325 MG Q6P PRN 05/25 1500 AC 05/26 PO 0450 Albuterol Sulfate 3 ML Q4P PRN 05/24 1300 AC 05/24 INH 1249 Amlodipine Besylate 10 MG DAILY 05/24 1133 AC 05/26 PO 0837 Aspirin 81 MG DAILY 05/24 1133 AC 05/26 PO 0836 Cholecalciferol 1,000 IU DAILY 05/24 1133 AC 05/26 PO 0835 Doxazosin Mesylate 4 MG DAILY 05/24 1134 AC 05/26 PO 0837 Ferric Sodium 125 MG Q48H 05/25 2100 DC 05/25 Gluconate Complex IV 06/08 2159 2119 Sodium Chloride 100 ML Ferric Sodium 125 MG Q48 05/25 1900 CAN Gluconate Complex IV Furosemide 40 MG DAILY 05/27 0900 AC PO Furosemide 40 MG DAILY 05/25 0900 DC 05/26 IV 0841 Heparin Sodium 5,000 UNIT Q8 05/24 1400 AC 05/26 (Porcine) SC 0501 Hydralazine HCl 100 MG TID 05/24 1400 AC 05/26 PO 0835 Isosorbide 60 MG DAILY 05/24 1136 AC 05/26 Mononitrate PO 0842 Labetalol HCl 300 MG BID 05/24 1800 AC 05/26 PO 0837 Multivitamins 1 TAB DAILY 05/24 1136 AC 05/26 Therapeutic PO 0835 Patient Medication 1 ED ONE ONE 05/25 1715 DC Teaching ED 05/25 1716 Pravastatin Sodium 20 MG 1700 05/24 1700 AC 05/25 PO 1729 Sevelamer Carbonate 800 MG WM 05/24 1200 AC 05/26 PO 0835 Spironolactone 12.5 MG DAILY 05/24 1137 AC 05/26 PO 0836 Tramadol HCl 50 MG .STK-MED ONE 05/25 1929 DC PO 05/25 1930 Tramadol HCl 50 MG BID PRN 05/24 1145 AC 05/25 PO 1934 Vitamin E 200 IU DAILY 05/24 1138 AC 05/26 PO 0835 Results Pertinent Lab Results: Laboratory Tests 05/26 05/25 05/24 05/24 0653 0616 1735 1335 Chemistry Sodium (137 - 145 mmol/L) 145 147 H Potassium (3.5 - 5.1 mmol/L) 3.9 3.8 Chloride (98 - 107 mmol/L) 107 107 Carbon Dioxide (22 - 30 mmol/L) 25 27 Anion Gap (5 - 16) 13 13 BUN (7 - 17 mg/dL) 44 H 43 H Creatinine (0.5 - 1.0 mg/dL) 3.4 H 3.2 H Estimated GFR (>60 ml/min) 13 L 14 L BUN/Creatinine Ratio (7 - 25 %) 12.9 13.4 Troponin I (< 0.11 ng/ml) 0.02 0.03 05/24 05/24 0940 0610 Chemistry Sodium (137 - 145 mmol/L) 146 H Potassium (3.5 - 5.1 mmol/L) 3.9 Chloride (98 - 107 mmol/L) 107 Carbon Dioxide (22 - 30 mmol/L) 25 Anion Gap (5 - 16) 14 BUN (7 - 17 mg/dL) 41 H Creatinine (0.5 - 1.0 mg/dL) 2.9 H Estimated GFR (>60 ml/min) 16 L BUN/Creatinine Ratio (7 - 25 %) 14.1 Glucose (65 - 99 mg/dL) 103 H Calcium (8.4 - 10.2 mg/dL) 8.8 Total Bilirubin (0.2 - 1.3 mg/dL) 0.4 Direct Bilirubin (< 0.4 mg/dL) 0.3 AST (14 - 36 U/L) 19 ALT (9 - 52 U/L) 22 Alkaline Phosphatase (<127 U/L) 69 Troponin I (< 0.11 ng/ml) 0.04 [id number] Pept (<125 pg/mL) 14840 H Total Protein (6.3 - 8.2 g/dL) 6.5 Albumin (3.5 - 5.0 g/dL) 3.8 Amylase (30 - 110 U/L) 54 Lipase (23 - 300 U/L) 153 Coagulation D-Dimer High Sensitivty (0 - 243 ng/ml) 633 H Hematology CBC w Diff NO MAN DIFF REQ WBC (4.8 - 10.8 /CUMM) 8.2 RBC (4.20 - 5.40 /CUMM) 2.85 L Hgb (12.0 - 16.0 G/DL) 8.6 L Hct (37 - 47 %) 26.1 L MCV (81.0 - 99.0 FL) 91.6 MCH (27.0 - 31.0 PG) 30.0 MCHC (33.0 - 37.0 G/DL) 32.8 L RDW (11.5 - 14.5 %) 15.5 H Plt Count (130 - 400 /CUMM) 308 MPV (7.4 - 10.4 FL) 8.8 Gran % (42.2 - 75.2 %) 70.5 Lymphocytes % (20.5 - 51.1 %) 17.6 L Monocytes % (1.7 - 9.3 %) 8.5 Eosinophils % (0 - 5 %) 2.7 Basophils % (0.0 - 2.0 %) 0.7 Absolute Granulocytes (1.4 - 6.5 /CUMM) 5.8 Absolute Lymphocytes (1.2 - 3.4 /CUMM) 1.4 Absolute Monocytes (0.10 - 0.60 /CUMM) 0.7 H Absolute Eosinophils (0.0 - 0.7 /CUMM) 0.2 Absolute Basophils (0.0 - 0.2 /CUMM) 0.1 Urines Urine Color (YEL,AMB,STR) YEL Urine Clarity (CLEAR) CLEAR Urine pH (5.0 - 8.0) 6.5 Ur Specific [place] (1.001 - 1.035) 1.015 Urine Protein (NEG,<30 MG/DL) 100 H Urine Ketones (NEG) NEG Urine Nitrite (NEG) NEG Urine Bilirubin (NEG) NEG Urine Urobilinogen (0.1 - 1.0 EU/dl) 0.2 Ur Leukocyte Esterase (NEG) NEG Ur Microscopic SEDIMENT EXAMINED Urine RBC (0 - 5 /HPF) 1-3 Urine WBC (0 - 2 /HPF) 1-3 H Ur Epithelial Cells (NONE,FEW) FEW Urine Bacteria (NEG/NONE) FEW H Urine Hemoglobin (NEG) TRACE-INTACT Urine Glucose (N MG/DL) NEG 05/24 0602 Chemistry [id number]-Nerznlwupge Pept Cancelled Imaging/Other Studies: TTE CONCLUSIONS Normal left ventricular systolic function with moderate concentric hypertrophy. Moderate left atrial enlargement. At least type 2 Diastolic left ventricular dysfunction with suggestion of elevated left ventricular end diastolic pressure by doppler.Moderate Pulmonary hypertension.Mild Mitral stenosis. Chest X-ray 05/24 IMPRESSION: Mildly increased perihilar interstitial prominence, concerning for developing congestion in the proper clinical setting. Possible trace pleural effusions. Enlarged cardiac silhouette.
[2018-05-26 15:41] VITALS: BP 182/78
[2018-05-26 21:55] VITALS: BP 150/64
[2018-05-27 06:56] VITALS: BP 142/68
--- NOTE | 2018-05-27 07:26 | PN- Housestaff ---
Cesar DUNN,Katherine 05/27/18 0725: Subjective Follow-up For: CHF exacerbation, hypertensive urgency Subjective: Patient seen and examined. She states that she is feeling okay but notes that she hasn't walked a lot. She denies any shortness of breath at the moment and is on nasal cannula 1-2 L with good oxygen saturation. Her blood pressure overnight stable at 142/68. Review of Systems Constitutional: Reports: no symptoms. EENTM: Reports: no symptoms. Cardiovascular: Reports: no symptoms. Respiratory: Reports: no symptoms. Gastrointestinal: Reports: no symptoms. Genitourinary: Reports: no symptoms. Musculoskeletal: Reports: no symptoms. Skin: Reports: no symptoms. Neurological/Psychological: Reports: no symptoms. Objective Last 24 Hrs of Vital Signs/I&O Vital Signs Date Time Temp Pulse Resp B/P B/P Pulse O2 O2 Flow FiO2 Mean Ox Delivery Rate 05/27 1448 92 Nasal 2.0L Cannula 05/27 1418 98.1 56 20 142/67 96 Nasal 2.0L Cannula 05/27 1255 132/66 05/27 0822 140/74 05/27 0821 140/74 05/27 0820 140/74 05/27 0819 140/74 05/27 0800 96 Nasal 1.0L Cannula 05/27 0656 98.3 68 18 142/68 94 CPAP 05/27 0033 55 93 05/26 2231 76 96 05/26 2155 98.3 67 18 150/64 92 Nasal Cannula 05/26 2135 96 Nasal 2.0L Cannula 05/26 2040 Nasal 1.0L Cannula 05/26 2009 65 150/64 05/26 2009 65 150/64 05/26 1659 94 Nasal 1.5L Cannula 05/26 1541 97.6 77 20 182/78 92 Nasal 1.5L Cannula Intake & Output 05/27 1600 05/27 0800 05/27 0000 Intake Total 400 200 240 Output Total 650 950 Balance -250 -750 240 Intake, Oral 400 200 240 Number 0 Bowel Movements Output, Urine 650 950 Patient 216 lb Weight Weight Bed scale Measurement Method Physical Exam General Appearance: Alert, Oriented X3, Cooperative, No Acute Distress Skin: No Rashes, No Breakdown, No Significant Lesion Skin Temp/Moisture Exam: Warm/Dry Sepsis Skin Exam (color): Normal for Ethnicity HEENT: Atraumatic, PERRLA, EOMI, Mucous Membr. moist/pink Cardiovascular: Regular Rate, Normal S1, Normal S2, No Murmurs Lungs: Clear to Auscultation, Normal Air Movement Abdomen: Normal Bowel Sounds, Soft, No Tenderness Neurological: Normal Speech Extremities: No Clubbing, No Cyanosis, No Edema, Normal Pulses Current Medications: Current Medications Sig/Duong Start time Last Medication Dose Route Stop Time Status Admin Acetaminophen 325 MG .STK-MED ONE 05/27 0548 DC PO 05/27 0549 Acetaminophen 325 MG Q6P PRN 05/25 1500 AC 05/27 PO 0549 Albuterol Sulfate 3 ML Q4P PRN 05/24 1300 AC 05/24 INH 1249 Amlodipine Besylate 10 MG DAILY 05/24 1133 AC 05/27 PO 0821 Aspirin 81 MG DAILY 05/24 1133 AC 05/27 PO 0819 Cholecalciferol 1,000 IU DAILY 05/24 1133 AC 05/27 PO 0821 Doxazosin Mesylate 4 MG DAILY 05/24 1134 AC 05/27 PO 0820 Furosemide 40 MG DAILY 05/27 0900 AC 05/27 PO 0821 Heparin Sodium 5,000 UNIT Q8 05/24 1400 AC 05/27 (Porcine) SC 1255 Hydralazine HCl 100 MG TID 05/24 1400 AC 05/27 PO 1255 Isosorbide 60 MG DAILY 05/24 1136 AC 05/27 Mononitrate PO 0820 Labetalol HCl 300 MG BID 05/24 1800 AC 05/27 PO 0822 Multivitamins 1 TAB DAILY 05/24 1136 AC 05/27 Therapeutic PO 0819 Polyethylene Glycol 17 GM DAILY 05/27 1401 AC 05/27 PO 1535 Pravastatin Sodium 20 MG 1700 05/24 1700 AC 05/27 PO 1535 Senna/Docusate Sodium 1 TAB BID PRN 05/27 1415 AC 05/27 PO 1426 Sevelamer Carbonate 800 MG WM 05/24 1200 AC 05/27 PO 1535 Spironolactone 12.5 MG DAILY 05/24 1137 AC 05/27 PO 0822 Tramadol HCl 50 MG .STK-MED ONE 05/26 2005 DC PO 05/26 2006 Tramadol HCl 50 MG BID PRN 05/24 1145 AC 05/26 PO 2007 Vitamin E 200 IU DAILY 05/24 1138 AC 05/27 PO 0822 Last 24 Hrs of Lab/Ray Results Last 24 Hrs of Labs/Mics: Laboratory Tests 05/27/18 0630: Anion Gap 14, Estimated GFR 13 L, BUN/Creatinine Ratio 12.9 Assessment/Plan Assessment: This is a 77-year-old female with a past medical history of CKD stage IV, anemia , hypertension, CHF, hyperlipidemia, chronic venous insufficiency, that comes in to see us for 2 weeks of worsening dyspnea at rest and exertion, lower extremity edema, mild left chest pressure worse on exertion, and hypertension on BP log book. Her blood pressure was recently increased from 5 mg to 10 mg but she has continued to have high blood pressures for the past month, sometimes in the low 200s. She is usually on 40 mg of Lasix daily but has continued to have lower extremity edema and complains now of orthopnea. Her last echocardiogram showed stage I diastolic dysfunction but preserved ejection fraction. On physical exam , the patient is using her accessory muscles of breathing and notes worsening shortness of breath when walking to the bathroom. In the ED, her vitals showed temperature 98.6, heart rate 111, respiratory rate 20, blood pressure 211/100 which decreased to 172/74 with 10 mg hydralazine push. Oxygen saturation at admission was 85% on room air which increased to 94% on 2 L and with IV Lasix 80 mg. On the floors, patient had a repeat blood pressure done which showed 240/100 in the left arm and 220/100 in the right arm. Her labs showed anemia with a hemoglobin of 8.6 which is baseline for her, mild hypernatremia of 146, BUN of 41, creatinine 2.9 which is chronic for her. Troponin was negative, proBNP was 17,800. LFTs were normal. Chest x-ray showed mildly increasing perihilar interstitial prominence concerning for developing congestion. In the ED, the patient was given hydralazine push 10 mg, Lasix 80 mg IV, Tylenol , Nitro-Bid Assessment -Mild chest pressure rule out ACS -Acute hypoxic respiratory failure secondary to CHF exacerbation versus pulmonary embolism versus as yet undiagnosed pulmonary pathology. -Hypertensive urgency -Stage IV CKD - proteinuria likely secondary to diabetic neuropathy and hypertensive nephrosclerosis -Chronic anemia -Mild hypernatremia Plan -Continue patient on Lasix 40 mg by mouth. Patient is on spironolactone 12.5. -As per cardiac consult the patient was started on labetalol 300 mg twice a day and as per renal, can uptitrate as needed for her blood pressure if SBP greater than 160. We're continuing her other blood pressure medications hydralazine 100 mg 3 times a day, amlodipine 10. -Lower extremity doppler US was negative -Trop and EKG were negative for ACS -Daily weights, strict I's and O's, patient has good diuresis on Lasix -Echocardiogram showed at least type II diastolic dysfunction with moderate pulmonary hypertension and ejection fraction 60-65% with elevated filling pressures. -[facility] nebs -Renal is seeing the patient and suggested giving Epogen if her blood pressure stabilizes, 10,000 units prior to discharge. Also IV ferrlicet 125 mg every other day for 8 doses. As per renal we cannot give our RAAS secondary to her renal issues. -Encourage low salt diet -Started patient's other home medications including tramadol, doxazosin, multivitamin, vitamin E/D. -As per cardiology today we will do a follow-up chest x-ray as well as ambulatory sats. -We have ordered physical therapy as patient has not walked much to get a baseline suggestion of patient's functional status. CHF diet Patient is full code DVT prophylaxis with Alps and heparin subcu Problem List: 1. Hypertensive urgency 2. Chronic kidney disease 3. CHF (congestive heart failure) Pain Ratin Pain Location: back and knees Pain Goal: Pain 4 or less Pain Plan: prn Tomorrow's Labs & Rationales: Yanet Haji 05/27/18 1445: Attending MD Review Statement Attending Statement Attending MD Statement: examined this patient, discuss w/resident/PA/SUBSTATION OPERATOR CHIEF, agreed w/resident/PA/SUBSTATION OPERATOR CHIEF, reviewed EMR data (avail), discussed with nursing, discussed with case mgmt Attending Assessment/Plan: CHF exacerbation- reveiwed echo with pt . shows stage 2 diastolic dysfunction, ef normal and RVSP is 50mm. will f/u on cardio recommendations. switch to po lasix 40mg po daily starting today. Creatinine stabilizing. Hypertensive urgency- pts bp is better today. again pt was counselled on compliance with medications and low sodium diet. Lower extremity edema- doppler negative for dvt. Deconditioning- PT consult placed. will f/u on their recommendatiosn and make dc plans based on that.
--- NOTE | 2018-05-27 08:25 | PN- Cardiology ---
Subjective Subjective: Telemetry reviewed. Sinus rhythm throughout. She denies any chest pains or unusual shortness of breath. Seems seemingly anxious about her condition in general. Objective Vital Signs and I&Os Vital Signs Date Time Temp Pulse Resp B/P B/P Pulse O2 O2 Flow FiO2 Mean Ox Delivery Rate 05/27 0656 98.3 68 18 142/68 94 CPAP 05/27 0033 55 93 05/26 2231 76 96 05/26 2155 98.3 67 18 150/64 92 Nasal Cannula 05/26 2135 96 Nasal 2.0L Cannula 05/26 2040 Nasal 1.0L Cannula 05/26 2009 65 150/64 05/26 2009 65 150/64 05/26 1659 94 Nasal 1.5L Cannula 05/26 1541 97.6 77 20 182/78 92 Nasal 1.5L Cannula 05/26 0921 95 Nasal 1.5L Cannula 05/26 0910 94 Nasal 3.0L Cannula 05/26 0842 136/72 05/26 0837 134/72 05/26 0837 134/72 05/26 0835 68 134/72 Intake & Output 05/27 1600 05/27 0800 05/27 0000 05/26 1600 05/26 0800 05/26 0000 Intake Total 200 240 400 120 580 Output Total 950 900 450 350 Balance -750 240 -500 -330 230 Intake, IV 100 Intake, Oral 200 240 400 120 480 Number 0 0 Bowel Movements Output, Urine 950 900 450 350 Patient 216 lb 213 lb Weight Weight Bed scale Measurement Method Physical Exam: On general exam patient appeared comfortable sitting in the bedside still on nasal oxygen Head normocephalic atraumatic Eyes sclera anicteric conjunctiva showed no pallor extraocular muscles were normal Neck no jugular venous distention no thyroid masses no palpable nodes [place] chest lungs appeared fairly clear bilaterally Heart regular rhythm with a grade 2/6 ejection systolic murmur Abdomen soft protuberant bowel sounds normal Extremities 1+ edema bilaterally Neurological no gross motor or sensory deficits Current Medications: Current Medications Sig/Duong Start time Last Medication Dose Route Stop Time Status Admin Acetaminophen 325 MG ONCE ONE 05/26 1530 DC 05/26 PO 05/26 1531 1650 Acetaminophen 325 MG Q6P PRN 05/25 1500 AC 05/27 PO 0549 Albuterol Sulfate 3 ML Q4P PRN 05/24 1300 AC 05/24 INH 1249 Amlodipine Besylate 10 MG DAILY 05/24 1133 AC 05/26 PO 0837 Aspirin 81 MG DAILY 05/24 1133 AC 05/26 PO 0836 Cholecalciferol 1,000 IU DAILY 05/24 1133 AC 05/26 PO 0835 Doxazosin Mesylate 4 MG DAILY 05/24 1134 AC 05/26 PO 0837 Ferric Sodium 125 MG Q48H 05/25 2100 DC 05/25 Gluconate Complex IV 06/08 2159 2119 Sodium Chloride 100 ML Furosemide 40 MG DAILY 05/27 0900 AC PO Furosemide 40 MG DAILY 05/25 0900 DC 05/26 IV 0841 Heparin Sodium 5,000 UNIT Q8 05/24 1400 AC 05/27 (Porcine) SC 0549 Hydralazine HCl 100 MG TID 05/24 1400 AC 05/26 PO 2009 Isosorbide 60 MG DAILY 05/24 1136 AC 05/26 Mononitrate PO 0842 Labetalol HCl 300 MG BID 05/24 1800 AC 05/26 PO 2009 Multivitamins 1 TAB DAILY 05/24 1136 AC 05/26 Therapeutic PO 0835 Pravastatin Sodium 20 MG 1700 05/24 1700 AC 05/26 PO 1650 Sevelamer Carbonate 800 MG WM 05/24 1200 AC 05/26 PO 1650 Spironolactone 12.5 MG DAILY 05/24 1137 AC 05/26 PO 0836 Tramadol HCl 50 MG .STK-MED ONE 05/26 2005 DC PO 05/26 2006 Tramadol HCl 50 MG BID PRN 05/24 1145 AC 05/26 PO 2008 Vitamin E 200 IU DAILY 05/24 1138 AC 05/26 PO 0835 Results Last 48 Hrs of Labs/Mics: Laboratory Tests 05/27/18 0630: Sodium Pending, Potassium Pending, Chloride Pending, Carbon Dioxide Pending, Anion Gap Pending, BUN Pending, Creatinine Pending, BUN/Creatinine Ratio Pending 05/26/18 0653: Anion Gap 13, Estimated GFR 13 L, BUN/Creatinine Ratio 12.9 Recent Imaging Studies: Echocardiogram Normal left ventricular systolic function with moderate concentric hypertrophy. Moderate left atrial enlargement. At least type 2 Diastolic left ventricular dysfunction with suggestion of elevated left ventricular end diastolic pressure by doppler.Moderate Pulmonary hypertension.Mild Mitral stenosis. Assessment/Plan Assessment/Plan In summary this 77-year-old female has a following problems 1. Hypertensive urgency 2. Acute on chronic heart failure with preserved ejection fraction 3. Chronic kidney disease 4. History of mild aortic stenosis 5. Sleep apnea 6. Chronic venous insufficiency 7. Hyperlipidemia 8. Chronic anemia Her major issues appear to be acute on chronic diastolic heart failure related to nephrosclerosis kidney disease uncontrolled hypertension. Nephrology is on board and will defer to nephrology for diuretic dose. Blood pressure appears reasonably better than admission. Suggest follow-up chest x-ray. Check O2 saturations on room air as well as on ambulation. Continue telemetry? Yes
--- NOTE | 2018-05-27 11:19 | PN- Nephrology ---
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 HTN - Much better controlled on current regimen. PATO - Rising SCr - likely 2/2 relative hypotension with improved BP control although cannot rule out overdiuresis. Switched to PO diuretics. Anemia - Iron deficient. Can receive Epogen prior to discharge (ideally should wait until iron stores have been replete, otherwise the Epogen won't work - that 's why it's worth waiting until the day of discharge). Suggestion: -Cont current BP regimen -40mg PO lasix daily -125mg IV ferrlecit every other day x8 doses -Epogen 10,000U prior to discharge Please call [phone] with ?'s Subjective Subjective: SCr 3.5 1350cc UOP Had been given 40mg IV lasix yesterday; switched to 40mg PO lasix today No new imaging BP 140's/70's Na 146 Objective Vital Signs and I&Os Vital Signs Date Time Temp Pulse Resp B/P B/P Pulse O2 O2 Flow FiO2 Mean Ox Delivery Rate 05/27 0822 140/74 05/27 0821 140/74 05/27 0820 140/74 05/27 0819 140/74 05/27 0800 96 Nasal 1.0L Cannula 05/27 0656 98.3 68 18 142/68 94 CPAP 05/27 0033 55 93 05/26 2231 76 96 05/26 2155 98.3 67 18 150/64 92 Nasal Cannula 05/26 2135 96 Nasal 2.0L Cannula 05/26 2040 Nasal 1.0L Cannula 05/26 2009 65 150/64 05/26 2009 65 150/64 05/26 1659 94 Nasal 1.5L Cannula 05/26 1541 97.6 77 20 182/78 92 Nasal 1.5L Cannula Intake & Output 05/27 1600 05/27 0400 05/26 1600 05/26 0400 05/25 1600 05/25 0400 Intake Total 200 240 520 580 730 140 Output Total 950 1350 350 600 Balance -750 240 -830 230 130 140 Intake, IV 100 10 Intake, Oral 200 240 520 480 720 140 Number 0 0 Bowel Movements Output, Urine 950 1350 350 600 Patient 216 lb 213 lb 213 lb Weight Weight Bed scale Bed scale Measurement Method Physical Exam: Gen - ok appearing HEENT - JVP equivocal CV - RRR, no m/r/g Chest - clear Abd - soft, NTND Ext - trace R>LLE edema - wrinkles present Neuro - AOX3, grossly nonfocal Current Medications: Current Medications Sig/Duong Start time Last Medication Dose Route Stop Time Status Admin Acetaminophen 325 MG ONCE ONE 05/26 1530 DC 05/26 PO 05/26 1531 1650 Acetaminophen 325 MG Q6P PRN 05/25 1500 AC 05/27 PO 0549 Albuterol Sulfate 3 ML Q4P PRN 05/24 1300 AC 05/24 INH 1249 Amlodipine Besylate 10 MG DAILY 05/24 1133 AC 05/27 PO 0821 Aspirin 81 MG DAILY 05/24 1133 AC 05/27 PO 0819 Cholecalciferol 1,000 IU DAILY 05/24 1133 AC 05/27 PO 0821 Doxazosin Mesylate 4 MG DAILY 05/24 1134 AC 05/27 PO 0820 Furosemide 40 MG DAILY 05/27 0900 AC 05/27 PO 0821 Heparin Sodium 5,000 UNIT Q8 05/24 1400 AC 05/27 (Porcine) SC 0549 Hydralazine HCl 100 MG TID 05/24 1400 AC 05/27 PO 0819 Isosorbide 60 MG DAILY 05/24 1136 AC 05/27 Mononitrate PO 0820 Labetalol HCl 300 MG BID 05/24 1800 AC 05/27 PO 0822 Multivitamins 1 TAB DAILY 05/24 1136 AC 05/27 Therapeutic PO 0819 Pravastatin Sodium 20 MG 1700 05/24 1700 AC 05/26 PO 1650 Sevelamer Carbonate 800 MG WM 05/24 1200 AC 05/27 PO 0819 Spironolactone 12.5 MG DAILY 05/24 1137 AC 05/27 PO 0822 Tramadol HCl 50 MG .STK-MED ONE 05/26 2005 DC PO 05/26 2006 Tramadol HCl 50 MG BID PRN 05/24 1145 AC 05/26 PO 2008 Vitamin E 200 IU DAILY 05/24 1138 AC 05/27 PO 0822 Results Pertinent Lab Results: Laboratory Tests 05/27 05/26 05/25 05/24 05/24 0630 0653 0616 1735 1335 Chemistry Sodium (137 - 145 mmol/L) 146 H 145 147 H Potassium (3.5 - 5.1 mmol/L) 4.1 3.9 3.8 Chloride (98 - 107 mmol/L) 106 107 107 Carbon Dioxide (22 - 30 mmol/L) 27 25 27 Anion Gap (5 - 16) 14 13 13 BUN (7 - 17 mg/dL) 45 H 44 H 43 H Creatinine (0.5 - 1.0 mg/dL) 3.5 H 3.4 H 3.2 H Estimated GFR (>60 ml/min) 13 L 13 L 14 L BUN/Creatinine Ratio (7 - 25 %) 12.9 12.9 13.4 Troponin I (< 0.11 ng/ml) 0.02 0.03 Imaging/Other Studies: None new
[2018-05-27 14:18] VITALS: BP 142/67
--- NOTE | 2018-05-27 15:21 | RADIOLOGY REPORT ---
EXAMINATION: XR PORTABLE CHEST CLINICAL INFORMATION: Follow-up chest x-ray. CHF exacerbation. COMPARISON: Several prior chest x-rays, most recent of which is dated 05/24/2018. TECHNIQUE: Portable AP semierect view of the chest was obtained. FINDINGS: EKG leads overlie the chest. Cardiomediastinal silhouette is enlarged, unchanged. Lungs are symmetrically expanded and continue to demonstrate some mild linear opacities in the lung bases, consistent with subsegmental atelectasis. There is improvement in the previously demonstrated vascular congestion/interstitial edema. There may be persistent trace bilateral pleural effusions. No pneumothorax is seen. Bony structures are grossly unremarkable. IMPRESSION: 1. Resolution of previously seen interstitial edema. Slight vascular congestion remains. 2. There may be residual trace bilateral pleural effusions. Bibasilar atelectatic changes are noted.
[2018-05-27 22:03] VITALS: BP 122/78
[2018-05-28 06:18] VITALS: BP 160/80
--- NOTE | 2018-05-28 07:39 | PN- Housestaff ---
Cesar DUNN,Katherine 05/28/18 0739: Subjective Follow-up For: CHF exacerbation Hypertensive urgency Subjective: Patient states that she feels good today. She is worried about her blood pressure and kidney function. She has no symptoms. Her vital signs showed a lower oxygen saturation of 90% on 2 L. Review of Systems Constitutional: Reports: no symptoms. EENTM: Reports: no symptoms. Cardiovascular: Reports: no symptoms. Respiratory: Reports: no symptoms. Gastrointestinal: Reports: no symptoms. Genitourinary: Reports: no symptoms. Objective Last 24 Hrs of Vital Signs/I&O Vital Signs Date Time Temp Pulse Resp B/P B/P Pulse O2 O2 Flow FiO2 Mean Ox Delivery Rate 05/28 1457 144/70 05/28 1415 98.1 58 20 144/76 92 Nasal Cannula 05/28 0850 94 Nasal 2.0L Cannula 05/28 0802 154/74 05/28 0802 154/74 05/28 0801 154/74 05/28 0800 154/74 05/28 0618 97.6 76 20 160/80 90 Nasal Cannula 05/28 0608 71 92 05/28 0331 70 94 05/28 0037 67 95 05/27 2220 63 95 05/27 2203 98.1 70 20 122/78 96 Nasal Cannula 05/27 2136 Nasal 2.0L Cannula 05/27 2130 95 Nasal 2.0L Cannula 05/27 1950 63 158/72 05/27 1950 63 158/72 05/27 1653 94 Nasal 2.0L Cannula Intake & Output 05/28 1600 05/28 0800 05/28 0000 Intake Total 400 320 830 Output Total 713 307 0361 Balance -350 -30 -170 Intake, IV 110 Intake, Oral 400 320 720 Number 3 1 0 Bowel Movements Output, Urine [phone] Patient 217 lb Weight Weight Bed scale Measurement Method Physical Exam General Appearance: Alert, Oriented X3, Cooperative, No Acute Distress Skin: No Rashes, No Breakdown, No Significant Lesion Skin Temp/Moisture Exam: Warm/Dry Sepsis Skin Exam (color): Normal for Ethnicity Cardiovascular: Regular Rate, Normal S1, Normal S2 Lungs: Clear to Auscultation, Normal Air Movement Abdomen: Normal Bowel Sounds, Soft, No Tenderness Extremities: No Clubbing, No Cyanosis, decreasing bipedal edema Current Medications: Current Medications Sig/Duong Start time Last Medication Dose Route Stop Time Status Admin Acetaminophen 325 MG .STK-MED ONE 05/28 0507 DC PO 05/28 0508 Acetaminophen 325 MG Q6P PRN 05/25 1500 AC 05/27 PO 1951 Albuterol Sulfate 3 ML Q4P PRN 05/24 1300 AC 05/24 INH 1249 Amlodipine Besylate 10 MG DAILY 05/24 1133 AC 05/28 PO 0801 Aspirin 81 MG DAILY 05/24 1133 AC 05/28 PO 0800 Cholecalciferol 1,000 IU DAILY 05/24 1133 AC 05/28 PO 0801 Doxazosin Mesylate 4 MG DAILY 05/24 1134 AC 05/28 PO 0801 Ferric Sodium 125 MG Q48H 05/29 2100 DC Gluconate Complex IV 06/08 2159 Sodium Chloride 100 ML Ferric Sodium 125 MG Q48 05/29 0900 CAN Gluconate Complex IV 06/10 0901 Ferric Sodium 125 MG Q48 05/29 0900 CAN Gluconate Complex IV 06/10 0959 Sodium Chloride 100 ML Ferric Sodium 125 MG Q48H 05/29 0900 DC Gluconate Complex IV 06/08 0959 Sodium Chloride 100 ML Ferric Sodium 125 MG Q48H 05/29 0900 AC Gluconate Complex IV 06/10 0959 Sodium Chloride 100 ML Ferric Sodium 125 MG Q48 05/28 0900 DC Gluconate Complex IV 06/09 0959 Sodium Chloride 100 ML Ferric Sodium 125 MG Q48H 05/28 0745 DC Gluconate Complex IV 06/09 0844 Sodium Chloride 100 ML Ferric Sodium 125 MG ONCE ONE 05/27 2130 DC 05/27 Gluconate Complex IV 05/27 2229 2148 Sodium Chloride 100 ML Furosemide 40 MG DAILY 05/27 0900 AC 05/28 PO 0801 Heparin Sodium 5,000 UNIT Q8 05/24 1400 AC 05/28 (Porcine) SC 1457 Hydralazine HCl 100 MG TID 05/24 1400 AC 05/28 PO 1457 Isosorbide 60 MG DAILY 05/24 1136 AC 05/28 Mononitrate PO 0802 Labetalol HCl 300 MG BID 05/24 1800 AC 05/28 PO 0800 Multivitamins 1 TAB DAILY 05/24 1136 AC 05/28 Therapeutic PO 0801 Patient Medication 1 ED ONE ONE 05/27 1800 DC Teaching ED 05/27 1801 Polyethylene Glycol 17 GM DAILY 05/27 1401 AC 05/28 PO 0802 Pravastatin Sodium 20 MG 1700 05/24 1700 AC 05/27 PO 1535 Senna/Docusate Sodium 1 TAB BID PRN 05/27 1415 AC 05/27 PO 1426 Sevelamer Carbonate 800 MG WM 05/24 1200 AC 05/28 PO 1132 Spironolactone 12.5 MG DAILY 05/24 1137 AC 05/28 PO 0803 Tramadol HCl 50 MG BID PRN 05/24 1145 AC 05/26 PO 2008 Vitamin E 200 IU DAILY 05/24 1138 AC 05/28 PO 0802 Last 24 Hrs of Lab/Ray Results Last 24 Hrs of Labs/Mics: Laboratory Tests 05/28/18 0632: Anion Gap 13, Estimated GFR 14 L, BUN/Creatinine Ratio 12.5 Assessment/Plan Assessment: This is a 77-year-old female with a past medical history of CKD stage IV, anemia , hypertension, CHF, hyperlipidemia, chronic venous insufficiency, that comes in to see us for 2 weeks of worsening dyspnea at rest and exertion, lower extremity edema, mild left chest pressure worse on exertion, and hypertension on BP log book. Her blood pressure was recently increased from 5 mg to 10 mg but she has continued to have high blood pressures for the past month, sometimes in the low 200s. She is usually on 40 mg of Lasix daily but has continued to have lower extremity edema and complains now of orthopnea. Her last echocardiogram showed stage I diastolic dysfunction but preserved ejection fraction. On physical exam , the patient is using her accessory muscles of breathing and notes worsening shortness of breath when walking to the bathroom. In the ED, her vitals showed temperature 98.6, heart rate 111, respiratory rate 20, blood pressure 211/100 which decreased to 172/74 with 10 mg hydralazine push. Oxygen saturation at admission was 85% on room air which increased to 94% on 2 L and with IV Lasix 80 mg. On the floors, patient had a repeat blood pressure done which showed 240/100 in the left arm and 220/100 in the right arm. Her labs showed anemia with a hemoglobin of 8.6 which is baseline for her, mild hypernatremia of 146, BUN of 41, creatinine 2.9 which is chronic for her. Troponin was negative, proBNP was 17,800. LFTs were normal. Chest x-ray showed mildly increasing perihilar interstitial prominence concerning for developing congestion. In the ED, the patient was given hydralazine push 10 mg, Lasix 80 mg IV, Tylenol , Nitro-Bid Assessment -Mild chest pressure rule out ACS -Acute hypoxic respiratory failure secondary to CHF exacerbation versus pulmonary embolism versus as yet undiagnosed pulmonary pathology. -Hypertensive urgency -Stage IV CKD - proteinuria likely secondary to diabetic neuropathy and hypertensive nephrosclerosis -Chronic anemia -Mild hypernatremia Plan -Continue patient on Lasix 40 mg by mouth. Patient is on spironolactone 12.5. -As per cardiac consult the patient was started on labetalol 300 mg twice a day and as per renal, can uptitrate as needed for her blood pressure if SBP greater than 160. We're continuing her other blood pressure medications hydralazine 100 mg 3 times a day, amlodipine 10. We will hold patient's bystolic which she was receiving before she was admitted. -Lower extremity doppler US was negative -Trop and EKG were negative for ACS -Daily weights, strict I's and O's, patient has good diuresis on Lasix -Echocardiogram showed at least type II diastolic dysfunction with moderate pulmonary hypertension and ejection fraction 60-65% with elevated filling pressures. -[facility] nebs -Renal is seeing the patient and suggested giving Epogen if her blood pressure stabilizes, 10,000 units prior to discharge. Also IV ferrlicet 125 mg every other day for 8 doses. As per renal we cannot give our RAAS secondary to her renal issues. Patient will receive iron at the infusion center after she is discharged. Patient's creatinine fell from 2.5-3.2 today. -Encourage low salt diet -Started patient's other home medications including tramadol, doxazosin, multivitamin, vitamin E/D. -We did a follow-up chest x-ray which showed resolution of her congestion. -We will take patient for a walk to see her saturations and then decide if she can be discharged. -We have ordered physical therapy as patient has not walked much to get a baseline suggestion of patient's functional status. CHF diet Patient is full code DVT prophylaxis with Alps and heparin subcu Problem List: 1. Chronic kidney disease 2. Hypertensive urgency 3. CHF (congestive heart failure) Pain Ratin Pain Location: knees and back Pain Goal: Remain pain free Pain Plan: na Tomorrow's Labs & Rationales: rodolfo Yanet Wheatley 05/28/18 1317: Attending MD Review Statement Attending Statement Attending MD Statement: examined this patient, discuss w/resident/PA/INSPECTOR TOYS, agreed w/resident/PA/INSPECTOR TOYS, reviewed EMR data (avail), discussed with nursing, discussed with case mgmt Attending Assessment/Plan: CHF exacerbation- reveiwed echo with pt . shows stage 2 diastolic dysfunction, ef normal and RVSP is 50mm. will f/u on cardio recommendations. on po lasix 40mg po daily . Creatinine stable. plan is to wean off oxygen prior to dc home. If weaned off will dc today and if now plan to dc tomorrow. Hypertensive urgency- pts bp is staying better . again pt was counselled on compliance with medications and low sodium diet. Lower extremity edema- doppler negative for dvt. Plan dc home when weaned off oxygen. dw pt the care plan.
--- NOTE | 2018-05-28 11:52 | PN- Nephrology ---
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 HTN - Much better controlled on current regimen. If she's going home today, I would be a bit hesitant to uptitrate the labetalol given that there has been some variation in her SBP which has been as low as 122/78 last night. PATO - Improved. Anemia - Iron deficient - getting IV iron. Should get Epogen prior to discharge and also be set up at [place] for Monthly Epogen injections. Suggestion: -Cont current BP regimen -40mg PO lasix daily -125mg IV ferrlecit every other day x8 doses (could be coordinated at infusion center to get the remaining doses of these as well) -Epogen 10,000U prior to discharge -Should be set up through [facility] - my office will coordinate Please call [phone] with ?'s Subjective Subjective: SCr 3.2 Na 145 BP 150's/70's today - on amlodipine 10mg daily, doxazosin 4mg daily, lasix 40mg daily, hydralazine 100mg TID, Imdur 60mg daily, labetalol 300mg BID, spironolactone 12.5mg daily Feeling OK - says edema is at baseline Chest X-ray improved Objective Vital Signs and I&Os Vital Signs Date Time Temp Pulse Resp B/P B/P Pulse O2 O2 Flow FiO2 Mean Ox Delivery Rate 05/28 0850 94 Nasal 2.0L Cannula 05/28 0802 154/74 05/28 0802 154/74 05/28 0801 154/74 05/28 0800 154/74 05/28 0618 97.6 76 20 160/80 90 Nasal Cannula 05/28 0608 71 92 05/28 0331 70 94 05/28 0037 67 95 05/27 2220 63 95 05/27 2203 98.1 70 20 122/78 96 Nasal Cannula 05/27 2136 Nasal 2.0L Cannula 05/27 2130 95 Nasal 2.0L Cannula 05/27 1950 63 158/72 05/27 1950 63 158/72 05/27 1653 94 Nasal 2.0L Cannula 05/27 1448 92 Nasal 2.0L Cannula 05/27 1418 98.1 56 20 142/67 96 Nasal 2.0L Cannula 05/27 1255 132/66 Intake & Output 05/28 1600 05/28 0400 05/27 1600 05/27 0400 05/26 1600 05/26 0400 Intake Total 200 950 600 240 520 580 Output Total 150 1200 1600 1350 350 Balance 50 -250 -1000 240 -830 230 Intake, IV 110 100 Intake, Oral 200 840 600 240 520 480 Number 2 0 0 0 Bowel Movements Output, Urine 150 1200 1600 1350 350 Patient 217 lb 216 lb 213 lb Weight Weight Bed scale Bed scale Measurement Method Physical Exam: Gen - NAD HEENT - supple CV - RRR, no m/r/g Chest - scant basilar crackles Abd - soft, NTND Ext - 1+ ankle edema (pt has been sitting) Neuro - AOX3, grossly nonfocal Current Medications: Current Medications Sig/Duong Start time Last Medication Dose Route Stop Time Status Admin Acetaminophen 325 MG Q6P PRN 05/25 1500 AC 05/27 PO 1951 Albuterol Sulfate 3 ML Q4P PRN 05/24 1300 AC 05/24 INH 1249 Amlodipine Besylate 10 MG DAILY 05/24 1133 AC 05/28 PO 0801 Aspirin 81 MG DAILY 05/24 1133 AC 05/28 PO 0800 Cholecalciferol 1,000 IU DAILY 05/24 1133 AC 05/28 PO 0801 Doxazosin Mesylate 4 MG DAILY 05/24 1134 AC 05/28 PO 0801 Ferric Sodium 125 MG Q48H 05/29 2100 DC Gluconate Complex IV 06/08 2159 Sodium Chloride 100 ML Ferric Sodium 125 MG Q48 05/29 0900 CAN Gluconate Complex IV 06/10 0901 Ferric Sodium 125 MG Q48 05/29 0900 CAN Gluconate Complex IV 06/10 0959 Sodium Chloride 100 ML Ferric Sodium 125 MG Q48H 05/29 0900 DC Gluconate Complex IV 06/08 0959 Sodium Chloride 100 ML Ferric Sodium 125 MG Q48H 05/29 0900 AC Gluconate Complex IV 06/10 0959 Sodium Chloride 100 ML Ferric Sodium 125 MG Q48 05/28 0900 DC Gluconate Complex IV 06/09 0959 Sodium Chloride 100 ML Ferric Sodium 125 MG Q48H 05/28 0745 DC Gluconate Complex IV 06/09 0844 Sodium Chloride 100 ML Ferric Sodium 125 MG ONCE ONE 05/27 2130 DC 05/27 Gluconate Complex IV 05/27 2229 2148 Sodium Chloride 100 ML Furosemide 40 MG DAILY 05/27 0900 AC 05/28 PO 0801 Heparin Sodium 5,000 UNIT Q8 05/24 1400 AC 05/28 (Porcine) SC 0609 Hydralazine HCl 100 MG TID 05/24 1400 AC 05/28 PO 0802 Isosorbide 60 MG DAILY 05/24 1136 AC 05/28 Mononitrate PO 0802 Labetalol HCl 300 MG BID 05/24 1800 AC 05/28 PO 0800 Multivitamins 1 TAB DAILY 05/24 1136 AC 05/28 Therapeutic PO 0801 Patient Medication 1 ED ONE ONE 05/27 1800 NE Teaching ED 05/27 1801 Polyethylene Glycol 17 GM DAILY 05/27 1401 AC 05/28 PO 0802 Pravastatin Sodium 20 MG 1700 05/24 1700 AC 05/27 PO 1535 Senna/Docusate Sodium 1 TAB BID PRN 05/27 1415 AC 05/27 PO 1426 Sevelamer Carbonate 800 MG WM 05/24 1200 AC 05/28 PO 1132 Spironolactone 12.5 MG DAILY 05/24 1137 AC 05/28 PO 0803 Tramadol HCl 50 MG BID PRN 05/24 1145 AC 05/26 PO 2008 Vitamin E 200 IU DAILY 05/24 1138 AC 05/28 PO 0802 Results Pertinent Lab Results: Laboratory Tests 05/28 05/27 05/26 0632 0630 0653 Chemistry Sodium (137 - 145 mmol/L) 145 146 H 145 Potassium (3.5 - 5.1 mmol/L) 4.0 4.1 3.9 Chloride (98 - 107 mmol/L) 109 H 106 107 Carbon Dioxide (22 - 30 mmol/L) 22 27 25 Anion Gap (5 - 16) 13 14 13 BUN (7 - 17 mg/dL) 40 H 45 H 44 H Creatinine (0.5 - 1.0 mg/dL) 3.2 H 3.5 H 3.4 H Estimated GFR (>60 ml/min) 14 L 13 L 13 L BUN/Creatinine Ratio (7 - 25 %) 12.5 12.9 12.9 Imaging/Other Studies: EXAM TYPE: RAD - XRY-PORTABLE CHEST XRAY EXAMINATION: XR PORTABLE CHEST CLINICAL INFORMATION: Follow-up chest x-ray. CHF exacerbation. COMPARISON: Several prior chest x-rays, most recent of which is dated 05/24/2018. TECHNIQUE: Portable AP semierect view of the chest was obtained. FINDINGS: EKG leads overlie the chest. Cardiomediastinal silhouette is enlarged, unchanged. Lungs are symmetrically expanded and continue to demonstrate some mild linear opacities in the lung bases, consistent with subsegmental atelectasis. There is improvement in the previously demonstrated vascular congestion/interstitial edema. There may be persistent trace bilateral pleural effusions. No pneumothorax is seen. Bony structures are grossly unremarkable. IMPRESSION: 1. Resolution of previously seen interstitial edema. Slight vascular congestion remains. 2. There may be residual trace bilateral pleural effusions. Bibasilar atelectatic changes are noted.
--- NOTE | 2018-05-28 12:45 | PN- Cardiology ---
Subjective Subjective: Patient seen at bedside. Patient reports dyspnea is improved. Patient was able to ambulate in the hallway this morning. Denies chest pain, palpitations. Objective Vital Signs and I&Os Vital Signs Date Time Temp Pulse Resp B/P B/P Pulse O2 O2 Flow FiO2 Mean Ox Delivery Rate 05/28 0850 94 Nasal 2.0L Cannula 05/28 0802 154/74 05/28 0802 154/74 05/28 0801 154/74 05/28 0800 154/74 05/28 0618 97.6 76 20 160/80 90 Nasal Cannula 05/28 0608 71 92 05/28 0331 70 94 05/28 0037 67 95 05/27 2220 63 95 05/27 2203 98.1 70 20 122/78 96 Nasal Cannula 05/27 2136 Nasal 2.0L Cannula 05/27 2130 95 Nasal 2.0L Cannula 05/27 1950 63 158/72 05/27 1950 63 158/72 05/27 1653 94 Nasal 2.0L Cannula 05/27 1448 92 Nasal 2.0L Cannula 05/27 1418 98.1 56 20 142/67 96 Nasal 2.0L Cannula 05/27 1255 132/66 Intake & Output 05/28 1600 05/28 0800 05/28 0000 05/27 1600 05/27 0800 05/27 0000 Intake Total 320 830 400 200 240 Output Total 350 1000 650 950 Balance -30 -170 -250 -750 240 Intake, IV 110 Intake, Oral 320 720 400 200 240 Number 1 1 0 0 Bowel Movements Output, Urine 350 1000 650 950 Patient 98.515 kg 97.976 kg Weight Weight Bed scale Bed scale Measurement Method Physical Exam: General: no apparent distress HEENT: NCAT, NO JVD Heart: s1s2, RRR, +systolic ejection murmur Lungs: Good air entry bilaterally, bibasilar faint crackles, improved with cough Abd: soft, nt Ext: no peripheral edema, chronic skin changes Current Medications: Current Medications Sig/Duong Start time Last Medication Dose Route Stop Time Status Admin Acetaminophen 325 MG Q6P PRN 05/25 1500 AC 05/27 PO 195 Albuterol Sulfate 3 ML Q4P PRN 05/24 1300 AC 05/24 INH 1249 Amlodipine Besylate 10 MG DAILY 05/24 1133 AC 05/28 PO 08 Aspirin 81 MG DAILY 05/24 1133 AC 05/28 PO 0800 Cholecalciferol 1,000 IU DAILY 05/24 1133 AC 05/28 PO 0801 Doxazosin Mesylate 4 MG DAILY 05/24 1134 AC 05/28 PO 0801 Ferric Sodium 125 MG Q48H 05/29 2100 DC Gluconate Complex IV 06/08 2159 Sodium Chloride 100 ML Ferric Sodium 125 MG Q48 05/29 0900 CAN Gluconate Complex IV 06/10 0901 Ferric Sodium 125 MG Q48 05/29 0900 CAN Gluconate Complex IV 06/10 0959 Sodium Chloride 100 ML Ferric Sodium 125 MG Q48H 05/29 0900 DC Gluconate Complex IV 06/08 0959 Sodium Chloride 100 ML Ferric Sodium 125 MG Q48H 05/29 0900 AC Gluconate Complex IV 06/10 0959 Sodium Chloride 100 ML Ferric Sodium 125 MG Q48 05/28 0900 DC Gluconate Complex IV 06/09 0959 Sodium Chloride 100 ML Ferric Sodium 125 MG Q48H 05/28 0745 DC Gluconate Complex IV 06/09 0844 Sodium Chloride 100 ML Ferric Sodium 125 MG ONCE ONE 05/27 2130 DC 05/27 Gluconate Complex IV 05/27 2229 2148 Sodium Chloride 100 ML Furosemide 40 MG DAILY 05/27 0900 AC 05/28 PO 0801 Heparin Sodium 5,000 UNIT Q8 05/24 1400 AC 05/28 (Porcine) SC 0609 Hydralazine HCl 100 MG TID 05/24 1400 AC 05/28 PO 0802 Isosorbide 60 MG DAILY 05/24 1136 AC 05/28 Mononitrate PO 0802 Labetalol HCl 300 MG BID 05/24 1800 AC 05/28 PO 0800 Multivitamins 1 TAB DAILY 05/24 1136 AC 05/28 Therapeutic PO 0801 Patient Medication 1 ED ONE ONE 05/27 1800 CA Teaching ED 05/27 1801 Polyethylene Glycol 17 GM DAILY 05/27 1401 AC 05/28 PO 0802 Pravastatin Sodium 20 MG 1700 05/24 1700 AC 05/27 PO 1535 Senna/Docusate Sodium 1 TAB BID PRN 05/27 1415 AC 05/27 PO 1426 Sevelamer Carbonate 800 MG WM 05/24 1200 AC 05/28 PO 1132 Spironolactone 12.5 MG DAILY 05/24 1137 AC 05/28 PO 0803 Tramadol HCl 50 MG BID PRN 05/24 1145 AC 05/26 PO 2007 Vitamin E 200 IU DAILY 05/24 1138 05/28 PO 0802 Results Recent Imaging Studies: telemetry personally reviewed - normal sinus rhythm Assessment/Plan Assessment/Plan 1. Hypertensive urgency, now resolved 2. Acute on chronic heart failure with preserved ejection fraction, now resolved 3. Chronic kidney disease 4. History of mild aortic stenosis 5. Sleep apnea 6. Chronic venous insufficiency 7. Hyperlipidemia 8. Chronic anemia Patient is clinically improved from admission. Appears euvolemic on exam. Would continue with current antihypertensive regimen. We will defer to nephrology for diuretic dose. Please ensure the patient follows up in our office within 1 week after discharge. Continue telemetry? No
[2018-05-28] MEDS ORDERED: LABETALOL HCL100 M1 PO (13:30)
--- NOTE | 2018-05-28 13:30 | Patient Discharge Instructions ---
Discharge Instructions General Discharge Information You were seen/treated for: CHF EXACERBATION hypertensive urgency anemia Special Instructions: 1. Please follow up with pcp Dr. Danielson in one week. 2. Please follow up with supervisor plate forming Dr. Garrett for sleep study 3. Please follow up with director of trauma Dr. Darling for follow up of your anemia. 4. Please follow up with your veterinary technician assistant Dr. Hager in one week 5. Please follow up with your new room service manager Dr. Smallwood in one week. 6. Please follow up with vascular surgeon Dr. Paredse for placement of AV fistula and evaluation of aortic diameter. 7. Please follow up with BMP and CBC on 06/17/18 with results sent to the doctor's specified. Diet Continue normal diet: No Recommended Diet: Renal Non Dialysis Activity Full Activity/No Limits: Yes (as tolerated) Acute Coronary Syndrome Inclusion Criteria At DC or during hospital stay patient has or had the following: ACS DIAGNOSIS No Discharge Core Measures Meds if any: Prescribed or Continued at Discharge Meds if any: NOT Prescribed or Continued at Discharge Congestive Heart Failure Inclusion Criteria At DC or during hospital stay patient has or had the following: CHF DIAGNOSIS No Discharge Core Measures Meds if any: Prescribed or Continued at Discharge Meds if any: NOT Prescribed or Continued at Discharge Cerebrovascular accident Inclusion Criteria At DC or during hospital stay patient has or had the following: CVA/TIA Diagnosis No Discharge Core Measures Meds if any: Prescribed or Continued at Discharge Meds if any: NOT Prescribed or Continued at Discharge Venous thromboembolism Inclusion Criteria VTE Diagnosis No VTE Type NONE VTE Confirmed by (Test) NONE Discharge Core Measures - Per Current guidelines, there needs to be overlap - treatment for the first 5 days of Warfarin therapy. - If discharged on Warfarin prior to 5 days of - overlap therapy, the patient will need to be - assessed for post discharge needs including - *Post discharge parental anticoagulation - *Warfarin and/or parental anticoagulation education - *Follow up date to check INR post discharge At least 5 days overlap therapy as Inpatient No Meds if any: Prescribed or Continued at Discharge Note: Overlap Therapy is Warfarin and Anticoagulant Meds if any: NOT Prescribed or Continued at Discharge
[2018-05-28 14:15] VITALS: BP 144/76
[2018-05-28 22:30] VITALS: BP 144/74
--- NOTE | 2018-05-29 04:13 | RADIOLOGY REPORT ---
EXAMINATION: XR PORTABLE CHEST CLINICAL INFORMATION: Shortness of breath and desaturation COMPARISON: 05/27/2018 TECHNIQUE: Portable frontal view of the chest was obtained. FINDINGS: Lung volumes are symmetric. There is increased prominence of the central vasculature and interstitium compared to prior. No definite consolidation is seen. Small pleural effusions are suspected. No evidence of pneumothorax. There is marked enlargement of the cardiac silhouette, similar to prior. No acute osseous findings are seen. IMPRESSION: 1. Increased prominence of the central vasculature and interstitium, suspicious for interstitial edema. Small pleural effusions. 2. Markedly enlarged cardiac silhouette may reflect cardiomegaly or pericardial effusion.
--- NOTE | 2018-05-29 04:26 | Event Note ---
Event Note Event Note: S: I was paged that patient is complaining difficulty in breathing and when nursing staff saw the patient her CPAP mask was off. She was saturating 77%. B:77-year-old female with a past medical history of CKD stage IV, anemia, hypertension, CHF, hyperlipidemia, chronic venous insufficiency, that comes in to see us for 2 weeks of worsening dyspnea at rest and exertion, lower extremity edema, mild left chest pressure worse on exertion, and hypertension. A/P: Patient was seen. She was alert and oriented. Hemodynamically stable. On physical exam her upper chest was clear b/l but lower chest b/l crackles were present. She was given non rebreather. Her saturation improved to 94% and later on went to 96%. Patient was still struggling. ABG was done that showed normal PH and normal Pco2 but with hypoxia. C-xray was ordered to rule out pulmonary congestion or pleural effusion. Chest x-ray showed pulmonary congestion. Possibly patient has acute hypoxic respiratory failure due to pulmonary congestion. We will diures her with iv lasix and start her on BIPAP due to her labored breathing. As she is struggling for breathing she can end up with intubation soon. Trop and EKG were ordered to find if cardiac ischemia is the precipitating factor for her pulmonary congestion. We will check magnesium. D- dimer was ordered although the previous one was negative for PE. May need V/Q scan to r/o PE, considering her sudden shortness of breath. As she has renal dysfunction we will not do CTA chest.
[2018-05-29 06:34] VITALS: BP 154/80
--- NOTE | 2018-05-29 07:39 | PN- Housestaff ---
Cesar DUNN,Katherine 05/29/18 0739: Subjective Follow-up For: Acute hypoxic respiratory failure secondary to CHF exacerbation versus PE Hypertensive urgency Subjective: Overnight patient had an episode of acute respiratory decompensation and was placed on nonrebreathing mask BiPAP with settings of 18/6, respiratory rate 22, 50% FiO2. She had a chest x-ray done which showed increased prominence of the central vasculature and interstitial significant for interstitial edema with a small pleural effusion. She was given 1 dose of Lasix IV 20 mg and her magnesium was checked and it was okay. She also had a d-dimer drawn which was found to be elevated to 1186. At the time of interview her leg pressure was stable at 154/80 but increased to the 200s right before she was given her medications. As per nursing this is normal right before she gets her morning antihypertensives. Patient was on 40 mg Lasix daily by mouth but was switched to 40 mg Lasix IV today. Troponins and EKGs were drawn overnight were negative and we will follow up on repeat troponin and EKG today. Secondary to the increase in d-dimer, we started the patient on heparin drip, guaiac negative. Patient is unable to undergo CTA secondary to kidney failure. V/Q scan is not available on the weekend. Patient also complained of some mild chest pain that was worse on inspiration and not with position change. Review of Systems Constitutional: Reports: no symptoms. Cardiovascular: Reports: chest pain. Respiratory: Reports: short of breath. Gastrointestinal: Reports: no symptoms. Genitourinary: Reports: no symptoms. Musculoskeletal: Reports: no symptoms. Skin: Reports: no symptoms. Neurological/Psychological: Reports: anxiety. Objective Last 24 Hrs of Vital Signs/I&O Vital Signs Date Time Temp Pulse Resp B/P B/P Pulse O2 O2 Flow FiO2 Mean Ox Delivery Rate 05/29 0942 96 BIPAP 50% 05/29 0939 89 96 05/29 0843 74 200/86 05/29 0842 74 200/86 05/29 0841 74 200/86 05/29 0841 74 200/86 05/29 0820 68 95 05/29 0800 BIPAP 50% 05/29 0635 65 98 05/29 0634 98.6 73 26 154/80 97 Nasal Cannula 05/29 0436 79 93 05/29 0322 73 Nasal 3.0L Cannula 05/28 2230 98.8 88 22 144/74 92 Nasal Cannula 05/28 2047 Nasal 2.5L Cannula 05/28 2028 60 170/92 05/28 2028 60 170/92 05/28 1600 84 Room Air 05/28 1550 28 92 Nasal 2.5L Cannula 05/28 1545 32 84 Room Air 05/28 1457 144/70 05/28 1415 98.1 58 20 144/76 92 Nasal Cannula Intake & Output 05/29 1600 05/29 0800 05/29 0000 Intake Total 360 Output Total 1001 Balance -641 Intake, Oral 360 Number 1 Bowel Movements Output, Stool 1 Output, Urine 1000 Patient 212 lb 216 lb Weight Weight Bed scale Bed scale Measurement Method Physical Exam General Appearance: Alert, Oriented X3, Cooperative, Mild Distress, Moderate Distress Skin: No Rashes, No Breakdown, No Significant Lesion Skin Temp/Moisture Exam: Warm/Dry Sepsis Skin Exam (color): Normal for Ethnicity HEENT: Atraumatic, PERRLA, EOMI, Mucous Membr. moist/pink Cardiovascular: Regular Rate, Normal S1, Normal S2, No Murmurs Lungs: patient found to have crackles on the right side and distant lung sounds throughout. Abdomen: Normal Bowel Sounds, Soft, No Tenderness Neurological: Normal Speech, Strength at 5/5 X4 Ext, Normal Tone, Sensation Intact Extremities: No Clubbing, No Cyanosis, Normal Pulses, No Tenderness/Swelling, patient has trace pitting edema Vascular: Normal Pulses, Pulses Symmetrical Sepsis Peripheral Pulse Location: Radial Current Medications: Current Medications Sig/Duong Start time Last Medication Dose Route Stop Time Status Admin Acetaminophen 650 MG .STK-MED ONE 05/28 2025 DC PO 05/28 2026 Acetaminophen 325 MG Q6P PRN 05/25 1500 AC 05/28 PO 2026 Albuterol Sulfate 3 ML Q4P PRN 05/24 1300 AC 05/29 INH 0309 Amlodipine Besylate 10 MG DAILY 05/24 1133 AC 05/29 PO 0841 Aspirin 81 MG DAILY 05/24 1133 AC 05/29 PO 0834 Cholecalciferol 1,000 IU DAILY 05/24 1133 AC 05/29 PO 0835 Doxazosin Mesylate 4 MG DAILY 05/24 1134 AC 05/29 PO 0841 Ferric Sodium 125 MG Q48H 05/29 2100 DC Gluconate Complex IV 06/08 2159 Sodium Chloride 100 ML Ferric Sodium 125 MG Q48H 05/29 0900 DC Gluconate Complex IV 06/08 0959 Sodium Chloride 100 ML Ferric Sodium 125 MG Q48H 05/29 0900 AC 05/29 Gluconate Complex IV 06/10 0959 1006 Sodium Chloride 100 ML Furosemide 40 MG DAILY 05/29 0900 AC 05/29 IV 0843 Furosemide 20 MG ONCE ONE 05/29 0430 DC 05/29 IV 05/29 0431 0513 Furosemide 40 MG DAILY 05/27 0900 DC 05/28 PO 0801 Heparin Sodium 5,000 UNIT Q8 05/24 1400 DC 05/29 (Porcine) SC 0513 Heparin Sodium/ 25,000 UNIT Q24H 05/29 0915 AC 05/29 Dextrose IV 1007 Dextrose/Water 500 ML Hydralazine HCl 100 MG TID 05/24 1400 AC 05/29 PO 0843 Isosorbide 60 MG DAILY 05/24 1136 05/29 Mononitrate PO 0841 Labetalol HCl 300 MG BID 05/24 1800 AC 05/29 PO 0842 Multivitamins 1 TAB DAILY 05/24 1136 AC 05/29 Therapeutic PO 0834 Polyethylene Glycol 17 GM DAILY 05/27 1401 AC 05/28 PO 0802 Pravastatin Sodium 20 MG 1700 05/24 1700 AC 05/28 PO 1645 Senna/Docusate Sodium 1 TAB BID PRN 05/27 1415 AC 05/27 PO 1426 Sevelamer Carbonate 800 MG WM 05/24 1200 AC 05/28 PO 1645 Spironolactone 12.5 MG DAILY 05/24 1137 AC 05/29 PO 0834 Tramadol HCl 50 MG BID PRN 05/24 1145 AC 05/26 PO 2008 Vitamin E 200 IU DAILY 05/24 1138 05/29 PO 0832 Last 24 Hrs of Lab/Ray Results Last 24 Hrs of Labs/Mics: Laboratory Tests 05/29/18 1000: Anion Gap 8, Estimated GFR 13 L, BUN/Creatinine Ratio 13.2, Troponin I 0.05 05/29/18 0450: Magnesium 2.5 H, Troponin I 0.05, D-Dimer High Sensitivty 1186 H 05/29/18 0345: pH 7.39, pCO2 42, pO2 75 L, HCO3 25, ABG O2 Sat (Measured) 94.0 L, P-50 (Temp Corrected) Y, Carboxyhemoglobin 0 L, O2 Concentration % 100%, Temperature 98.8, O2 Delivery Method NRB, Phlebotomy Draw Site RIGHT RADIAL Microbiology 05/29 0450 URINE ROUT: Urine Culture - RECD Assessment/Plan Assessment: This is a 77-year-old female with a past medical history of CKD stage IV, anemia , hypertension, CHF, hyperlipidemia, chronic venous insufficiency, that comes in to see us for 2 weeks of worsening dyspnea at rest and exertion, lower extremity edema, mild left chest pressure worse on exertion, and hypertension on BP log book. Her blood pressure was recently increased from 5 mg to 10 mg but she has continued to have high blood pressures for the past month, sometimes in the low 200s. She is usually on 40 mg of Lasix daily but has continued to have lower extremity edema and complains now of orthopnea. Her last echocardiogram showed stage I diastolic dysfunction but preserved ejection fraction. On physical exam , the patient is using her accessory muscles of breathing and notes worsening shortness of breath when walking to the bathroom. In the ED, her vitals showed temperature 98.6, heart rate 111, respiratory rate 20, blood pressure 211/100 which decreased to 172/74 with 10 mg hydralazine push. Oxygen saturation at admission was 85% on room air which increased to 94% on 2 L and with IV Lasix 80 mg. On the floors, patient had a repeat blood pressure done which showed 240/100 in the left arm and 220/100 in the right arm. Her labs showed anemia with a hemoglobin of 8.6 which is baseline for her, mild hypernatremia of 146, BUN of 41, creatinine 2.9 which is chronic for her. Troponin was negative, proBNP was 17,800. LFTs were normal. Chest x-ray showed mildly increasing perihilar interstitial prominence concerning for developing congestion. In the ED, the patient was given hydralazine push 10 mg, Lasix 80 mg IV, Tylenol , Nitro-Bid Assessment -Mild chest pressure rule out ACS -Acute hypoxic respiratory failure secondary to CHF exacerbation versus pulmonary embolism versus as yet undiagnosed pulmonary pathology. -Hypertensive urgency -Stage IV CKD - proteinuria likely secondary to diabetic neuropathy and hypertensive nephrosclerosis -Chronic anemia -Mild hypernatremia Overnight patient had an episode of acute respiratory decompensation and was placed on nonrebreathing mask BiPAP with settings of 18/6, respiratory rate 22, 50% FiO2. She had a chest x-ray done which showed increased prominence of the central vasculature and interstitial significant for interstitial edema with a small pleural effusion. She was given 1 dose of Lasix IV 20 mg and her magnesium was checked and it was okay. She also had a d-dimer drawn which was found to be elevated to 1186. At the time of interview her leg pressure was stable at 154/80 but increased to the 200s right before she was given her medications. As per nursing this is normal right before she gets her morning antihypertensives. Patient was on 40 mg Lasix daily by mouth but was switched to 40 mg Lasix IV today. Troponins and EKGs were drawn overnight were negative and we will follow up on repeat troponin and EKG today. Secondary to the increase in d-dimer, we started the patient on heparin drip, guaiac negative. Patient is unable to undergo CTA secondary to kidney failure. V/Q scan is not available on the weekend. Patient also complained of some mild chest pain that was worse on inspiration and not with position change. Plan -Continue patient on 40 mg Lasix IV and follow further cardio recommendations. Patient is on spironolactone 12.5. -Weaned from BiPAP as able -As per cardiac consult the patient was started on labetalol 300 mg twice a day and as per renal, can uptitrate as needed for her blood pressure if SBP greater than 160. We continued her other blood pressure medications hydralazine 100 mg 3 times a day, amlodipine 10. We will hold patient's bystolic which she was receiving before she was admitted. -Lower extremity doppler US was negative previously. Now the patient has acutely decompensated respiratory hernandez and her d-dimer is elevated, we will order another lower extremity Doppler ultrasound. Of note, we cannot do CTA secondary to patient's renal failure and V/Q scan is not available to the morning. In the meantime we will start patient on heparin drip. -Patient had chest pain this morning, first set of troponin and EKG were negative, follow-up repeat troponins and EKG today. -Daily weights, strict I's and O's, patient has good diuresis on Lasix -Echocardiogram showed at least type II diastolic dysfunction with moderate pulmonary hypertension and ejection fraction 60-65% with elevated filling pressures. -[facility] nebs -Renal is seeing the patient and suggested giving Epogen if her blood pressure stabilizes, 10,000 units prior to discharge. Also IV ferrlicet 125 mg every other day for 8 doses. As per renal we cannot give our RAAS secondary to her renal issues. Patient will receive iron at the infusion center after she is discharged. Patient's creatinine is hovering around 3.5. -Encourage low salt diet -Started patient's other home medications including tramadol, doxazosin, multivitamin, vitamin E/D. -We did a follow-up chest x-ray which showed resolution of her congestion. -We have ordered physical therapy as patient has not walked much to get a baseline suggestion of patient's functional status CHF diet Patient is full code DVT prophylaxis with Alps and heparin subcu Problem List: 1. CHF (congestive heart failure) 2. Hypertensive urgency Pain Ratin Pain Location: na Pain Goal: Remain pain free Pain Plan: as needed for arthritis Tomorrow's Labs & Rationales: cbc Eulalia Doss MD 05/29/18 1024: Attending MD Review Statement Attending Statement Attending MD Statement: examined this patient, discuss w/resident/PA/[employer], agreed w/resident/PA/[employer], reviewed EMR data (avail), discussed with nursing, reviewed images Attending Assessment/Plan: Overnight events noted. 77-year-old female past medical history of hypertension and CKD who is here with a hypertensive emergency. Overnight she went into acute hypoxemic respiratory failure requiring BiPAP. She was diuresed with IV Lasix and the chest x-ray showed CHF. Of note her d-dimer is also elevated. Right now given that she has an elevated creatinine we cannot do a CTA. We have ordered an ultrasound of her lower extremities and have empirically started on IV heparin. My suspicion is that this is all heart failure and we will switch the Lasix to IV. We will need to watch her renal function closely. We will also empirically started on heparin with the plan to get a VQ scan on Thursday.
[2018-05-29 12:00] VITALS: BP 164/62
--- NOTE | 2018-05-29 12:33 | ULTRASOUND REPORT ---
EXAMINATION: US TRIPLEX OF LOWER EXTREMITIES, BILATERAL CLINICAL INFORMATION: Bilateral lower extremity edema, swelling. COMPARISON: None TECHNIQUE: Color-flow triplex imaging with spectral analysis and compression Doppler were performed on the lower extremities. FINDINGS: Respiratory variation, normal compression and augmented flow are noted throughout the lower extremities. The visualized common femoral vein, superficial femoral vein, profunda femoral vein, and popliteal vein show no evidence of deep venous thrombosis. The calf veins are not well-visualized due to presence of edema and body habitus. There is no Galarza's cyst. IMPRESSION: No evidence of deep venous thrombosis involving the bilateral lower extremities.
[2018-05-29 14:11] VITALS: BP 180/80
[2018-05-29 16:20] LABS: ABSOLUTE BASOPHIL COUNT 0 /CUMM (0.0-0.2); ABSOLUTE EOSINOPHIL COUNT 0 /CUMM (0.0-0.7); ABSOLUTE LYMPH COUNT 0.7 /CUMM (1.2-3.4); ABSOLUTE MONOCYTE COUNT 0.5 /CUMM (0.10-0.60); MEAN PLATELET VOLUME 9.6 FL (7.4-10.4); WHITE BLOOD CELL COUNT 5.9 /CUMM (4.8-10.8)
[2018-05-29 16:26] LABS: ABSOLUTE GRANULOCYTE CT 4.6 /CUMM (1.4-6.5); BASOPHIL % 0.5 % (0.0-2.0); EOSINOPHIL % 0.6 % (0-5); GRANULOCYTE % 78.3 % (42.2-75.2); MEAN CORPUSCULAR HGB 29.6 PG (27.0-31.0); MEAN CORPUSCULAR HGB CONC 32.1 G/DL (33.0-37.0); MEAN CORPUSCULAR VOLUME 92.3 FL (81.0-99.0); PLATELET COUNT 205 /CUMM (130-400); RBC DISTRIBUTION WIDTH 15.7 % (11.5-14.5)
[2018-05-29 16:30] LABS: HEMATOCRIT 18.1 % (37-47); RED BLOOD CELL CT 1.96 /CUMM (4.20-5.40)
[2018-05-29 16:36] LABS: PTT 46 SEC (25-37)
[2018-05-29 17:03] LABS: ABSOLUTE BASOPHIL COUNT 0 /CUMM (0.0-0.2); ABSOLUTE EOSINOPHIL COUNT 0 /CUMM (0.0-0.7); ABSOLUTE LYMPH COUNT 0.7 /CUMM (1.2-3.4); BASOPHIL % 0.5 % (0.0-2.0); EOSINOPHIL % 0.6 % (0-5); RED BLOOD CELL CT 1.92 /CUMM (4.20-5.40)
[2018-05-29 17:06] LABS: ABSOLUTE GRANULOCYTE CT 4.4 /CUMM (1.4-6.5); ABSOLUTE MONOCYTE COUNT 0.6 /CUMM (0.10-0.60); GRANULOCYTE % 76.2 % (42.2-75.2); MEAN CORPUSCULAR HGB 29.6 PG (27.0-31.0); MEAN CORPUSCULAR HGB CONC 32.1 G/DL (33.0-37.0); MEAN CORPUSCULAR VOLUME 92.4 FL (81.0-99.0); MEAN PLATELET VOLUME 9.4 FL (7.4-10.4); PLATELET COUNT 199 /CUMM (130-400); RBC DISTRIBUTION WIDTH 15.6 % (11.5-14.5); WHITE BLOOD CELL COUNT 5.8 /CUMM (4.8-10.8)
[2018-05-29 17:08] LABS: HEMATOCRIT 17.7 % (37-47)
--- NOTE | 2018-05-29 18:04 | PN- Cardiology ---
Subjective Subjective: Breathing easier after diuresis and now being transfused 1 unit PRBCs. Denies chest discomfort, palpitations, lower extremity discomfort, etc. Objective Vital Signs and I&Os Vital Signs Date Time Temp Pulse Resp B/P B/P Pulse O2 O2 Flow FiO2 Mean Ox Delivery Rate 05/29 1411 98.0 61 22 180/80 98 BIPAP 50% 05/29 1351 68 95 05/29 1344 60 180/80 05/29 1200 60 164/62 05/29 0942 96 BIPAP 50% 05/29 0939 89 96 05/29 0843 74 200/86 05/29 0842 74 200/86 05/29 0841 74 200/86 05/29 0841 74 200/86 05/29 0820 68 95 05/29 0800 BIPAP 50% 05/29 0635 65 98 05/29 0634 98.6 73 26 154/80 97 Nasal Cannula 05/29 0436 79 93 05/29 0322 73 Nasal 3.0L Cannula 05/28 2230 98.8 88 22 144/74 92 Nasal Cannula 05/287 Nasal 2.5L Cannula 05/28 2028 60 170/92 05/28 2028 60 170/92 Intake & Output 05/29 1600 05/29 0800 05/29 0000 05/28 1600 05/28 0800 05/28 0000 Intake Total 380 360 400 320 830 Output Total 500 1001 890 606 1214 Balance -120 -641 -350 -30 -170 Intake, IV 260 110 Intake, Oral 120 360 400 320 720 Number 1 3 1 0 Bowel Movements Output, Stool 1 Output, Urine 500 1000 283 656 1189 Patient 216 lb 216 lb 217 lb Weight Weight Bed scale Bed scale Bed scale Measurement Method Physical Exam: Well-developed, overweight elderly female in mild respiratory distress with nasal oxygen in place. Neck: No JVD, no bruits. Lungs: Bibasilar crackles. Heart: S1, S2 with grade 2/6 systolic murmur. Abdomen: Soft, nontender, positive bowel sounds. Extremities: Trace edema. Current Medications: Current Medications Sig/Duong Start time Last Medication Dose Route Stop Time Status Admin Acetaminophen 650 MG .STK-MED ONE 05/28 2025 DC PO 05/28 2026 Acetaminophen 325 MG Q6P PRN 05/25 1500 AC 05/28 PO 2026 Albuterol Sulfate 3 ML Q4P PRN 05/24 1300 AC 05/29 INH 0309 Amlodipine Besylate 10 MG DAILY 05/24 1133 AC 05/29 PO 0841 Aspirin 81 MG DAILY 05/24 1133 AC 05/29 PO 0834 Cholecalciferol 1,000 IU DAILY 05/24 1133 AC 05/29 PO 0835 Doxazosin Mesylate 4 MG DAILY 05/24 1134 AC 05/29 PO 0841 Ferric Sodium 125 MG Q48H 05/29 2100 DC Gluconate Complex IV 06/08 2159 Sodium Chloride 100 ML Ferric Sodium 125 MG Q48H 05/29 0900 DC Gluconate Complex IV 06/08 0959 Sodium Chloride 100 ML Ferric Sodium 125 MG Q48H 05/29 0900 AC 05/29 Gluconate Complex IV 06/10 0959 1006 Sodium Chloride 100 ML Furosemide 40 MG DAILY 05/29 0900 AC 05/29 IV 0843 Furosemide 20 MG ONCE ONE 05/29 0430 DC 05/29 IV 05/29 0431 0513 Furosemide 40 MG DAILY 05/27 0900 DC 05/28 PO 0801 Heparin Sodium 5,000 UNIT Q8 05/24 1400 DC 05/29 (Porcine) SC 0513 Heparin Sodium/ 25,000 UNIT Q24H 05/29 0915 AC 05/29 Dextrose IV 1007 Dextrose/Water 500 ML Hydralazine HCl 100 MG TID 05/24 1400 AC 05/29 PO 1344 Isosorbide 60 MG DAILY 05/24 1136 AC 05/29 Mononitrate PO 0841 Labetalol HCl 300 MG BID 05/24 1800 AC 05/29 PO 0842 Multivitamins 1 TAB DAILY 05/24 1136 AC 05/29 Therapeutic PO 0834 Polyethylene Glycol 17 GM DAILY 05/27 1401 AC 05/28 PO 0802 Pravastatin Sodium 20 MG 1700 05/24 1700 AC 05/29 PO 1747 Senna/Docusate Sodium 1 TAB BID PRN 05/27 1415 AC 05/27 PO 1426 Sevelamer Carbonate 800 MG WM 05/24 1200 AC 05/29 PO 1748 Spironolactone 12.5 MG DAILY 05/24 1137 AC 05/29 PO 0834 Tramadol HCl 50 MG BID PRN 05/24 1145 AC 05/26 PO 2008 Vitamin E 200 IU DAILY 05/24 1138 AC 05/29 PO 0832 Results Last 48 Hrs of Labs/Mics: Laboratory Tests 05/29/18 1640: CBC w Diff NO MAN DIFF REQ, RBC 1.92 L, MCV 92.4, MCH 29.6, MCHC 32.1 L, RDW 15.6 H, MPV 9.4, Gran % 76.2 H, Lymphocytes % 12.6 L, Monocytes % 10.1 H, Eosinophils % 0.6, Basophils % 0.5, Absolute Granulocytes 4.4, Absolute Lymphocytes 0.7 L, Absolute Monocytes 0.6, Absolute Eosinophils 0, Absolute Basophils 0 05/29/18 1600: APTT 46 H, CBC w Diff NO MAN DIFF REQ, RBC 1.96 L, MCV 92.3, MCH 29.6, MCHC 32.1 L, RDW 15.7 H, MPV 9.6, Gran % 78.3 H, Lymphocytes % 11.9 L, Monocytes % 8.7, Eosinophils % 0.6, Basophils % 0.5, Absolute Granulocytes 4.6, Absolute Lymphocytes 0.7 L, Absolute Monocytes 0.5, Absolute Eosinophils 0, Absolute Basophils 0 05/29/18 1000: Anion Gap 8, Estimated GFR 13 L, BUN/Creatinine Ratio 13.2, Troponin I 0.05 05/29/18 0450: Magnesium 2.5 H, Troponin I 0.05, D-Dimer High Sensitivty 1186 H 05/29/18 0345: pH 7.39, pCO2 42, pO2 75 L, HCO3 25, ABG O2 Sat (Measured) 94.0 L, P-50 (Temp Corrected) Y, Carboxyhemoglobin 0 L, O2 Concentration % 100%, Temperature 98.8, O2 Delivery Method NRB, Phlebotomy Draw Site RIGHT RADIAL 05/28/18 0632: Anion Gap 13, Estimated GFR 14 L, BUN/Creatinine Ratio 12.5 Recent Imaging Studies: CXR 05/29/2018 1. Increased prominence of the central vasculature and interstitium, suspicious for interstitial edema. Small pleural effusions. 2. Markedly enlarged cardiac silhouette may reflect cardiomegaly or pericardial effusion. Assessment/Plan Assessment/Plan [id number] w/ hx of difficult to control HTN, HLD, CKD, anemia, mild MS, mild , LVH, diastolic dysfunction, HFpEF, NITHIN on CPAP, moderate pulmonary hypertension, chronic venous insufficiency, etc. who complained of SOB early this a.m. without CPAP mask on and with a saturation of 77% with CXR revealing increased central vascular and interstitial prominence suspicious for edema, marked anemia, an elevated d-dimer, etc. She was placed on BiPAP, IV heparin, and received IV furosemide 40 mg x 1. At 5:00 p.m. she was placed on nasal O2 at 5 L NC and is satting 94%. Recommendations: * Give additional IV furosemide this afternoon 40 mg 1 and reassess the need for further IV diuresis in the a.m. * Repeat CXR in a.m. Continue telemetry? Yes
--- NOTE | 2018-05-29 19:36 | Event Note ---
Event Note Event Note: S: Nurse Margaret notified me that the program director recommended that primary team was to reassess whether the patient still needs to be on anticoagulation. B: This is a 77-year-old lady who was started on IV heparin early in the morning of 05/29/2018 after it was felt that the patient may have developed a PE due to hypoxia and respiratory decompensation. A d-dimer which was done this morning showed a value of 1186 which suggested that the patient may have developed a pulmonary embolism. She was subsequently started on IV heparin with the plan to follow-up with V/Q scan on 05/31/2018. Over the course of the day however, the patient has improved clinically, and the differential for a thrombotic event is currently low. I subsequently spoke with the program director who stated that given the fact that she improved with aggressive diuresis (symptoms may have been related to fluid overload), we may want to reconsider IV heparin. A/R: In addition to the above, we will discontinue the heparin owing to acute drop in H&H. She is currently being transfused 1 unit of PRBCs. Following this we will diurese the patient with one more dose of IV Lasix. Will repeat an H&H this evening Attending physician was notified. Will continue to monitor closely
[2018-05-29 22:05] VITALS: BP 166/100
[2018-05-30 01:02] LABS: ABSOLUTE BASOPHIL COUNT 0.1 /CUMM (0.0-0.2); ABSOLUTE EOSINOPHIL COUNT 0.1 /CUMM (0.0-0.7); ABSOLUTE GRANULOCYTE CT 4.9 /CUMM (1.4-6.5); ABSOLUTE LYMPH COUNT 0.8 /CUMM (1.2-3.4); ABSOLUTE MONOCYTE COUNT 0.7 /CUMM (0.10-0.60); BASOPHIL % 0.8 % (0.0-2.0); EOSINOPHIL % 1.6 % (0-5); GRANULOCYTE % 75.1 % (42.2-75.2); HEMATOCRIT 20.5 % (37-47); MEAN CORPUSCULAR HGB CONC 32.5 G/DL (33.0-37.0); MEAN CORPUSCULAR VOLUME 92.4 FL (81.0-99.0); MEAN PLATELET VOLUME 9.8 FL (7.4-10.4); PLATELET COUNT 175 /CUMM (130-400); RBC DISTRIBUTION WIDTH 15.4 % (11.5-14.5); RED BLOOD CELL CT 2.21 /CUMM (4.20-5.40)
[2018-05-30 01:23] LABS: WHITE BLOOD CELL COUNT 6.5 /CUMM (4.8-10.8)
[2018-05-30 03:37] VITALS: BP 170/78
[2018-05-30 06:32] VITALS: BP 128/64
[2018-05-30 08:16] LABS: ABSOLUTE BASOPHIL COUNT 0 /CUMM (0.0-0.2); ABSOLUTE EOSINOPHIL COUNT 0.2 /CUMM (0.0-0.7); ABSOLUTE GRANULOCYTE CT 4.6 /CUMM (1.4-6.5); ABSOLUTE LYMPH COUNT 0.9 /CUMM (1.2-3.4); ABSOLUTE MONOCYTE COUNT 0.7 /CUMM (0.10-0.60); BASOPHIL % 0.6 % (0.0-2.0); EOSINOPHIL % 2.5 % (0-5); GRANULOCYTE % 71.4 % (42.2-75.2); HEMATOCRIT 21.4 % (37-47); MEAN CORPUSCULAR HGB 29.6 PG (27.0-31.0); MEAN CORPUSCULAR VOLUME 92.5 FL (81.0-99.0); MEAN PLATELET VOLUME 10.1 FL (7.4-10.4); PLATELET COUNT 210 /CUMM (130-400); RBC DISTRIBUTION WIDTH 15.7 % (11.5-14.5); RED BLOOD CELL CT 2.31 /CUMM (4.20-5.40); WHITE BLOOD CELL COUNT 6.4 /CUMM (4.8-10.8)
--- NOTE | 2018-05-30 08:51 | PN- Housestaff ---
Go DUNN,Eveline 05/30/18 0851: Subjective Follow-up For: Hypertensive urgency Acute on chronic heart failure with preserved ejection fraction Chronic kidney disease History of aortic stenosis Chronic venous insufficiency Chronic anemia needed blood transfusion Complaints: patient was feeling energetic after blood transfusion. Subjective: Patient is seen and examined at the bedside. She was feeling much better after blood transfusion. She still feels short of breath after exertion. Objective Last 24 Hrs of Vital Signs/I&O Vital Signs Date Time Temp Pulse Resp B/P B/P Pulse O2 O2 Flow FiO2 Mean Ox Delivery Rate 05/30 1528 97.6 58 20 122/60 95 05/30 1518 98.3 68 20 150/70 05/30 1141 91 Nasal 4.0L Cannula 05/30 0852 98.3 65 20 128/64 05/30 0852 98.3 65 20 128/64 05/30 0851 98.3 65 20 128/64 05/30 0851 98.3 65 20 128/64 05/30 0800 93 Nasal 4.0L Cannula 05/30 0632 98.3 65 20 128/64 94 05/30 0616 56 94 05/30 0337 170/78 05/30 0318 60 95 05/30 0314 59 98 05/30 0019 59 96 05/30 0015 60 99 05/29 2205 98.7 60 18 166/100 97 05/29 2156 Nasal 5.0L Cannula 05/29 2145 60 166/100 05/29 2145 60 166/100 05/29 1825 68 172/74 Intake & Output 05/30 1600 05/30 0800 05/30 0000 Intake Total 120 490 Output Total 550 Balance 120 -60 Intake, Blood 350 Product Intake, IV 40 Intake, Oral 120 100 Output, Urine 550 Patient 97.069 kg Weight Physical Exam General Appearance: Alert, Oriented X3, Cooperative Neck: Supple, enlarge neck veins Cardiovascular: Normal S1, Normal S2 Lungs: bilateral crackles Abdomen: Soft Extremities: No Clubbing, No Cyanosis, No Edema Current Medications: Current Medications Sig/Duong Start time Last Medication Dose Route Stop Time Status Admin Acetaminophen 325 MG Q6P PRN 05/25 1500 AC 05/30 PO 1226 Albuterol Sulfate 3 ML Q4P PRN 05/24 1300 AC 05/29 INH 0309 Amlodipine Besylate 10 MG DAILY 07/16 1133 AC 05/30 PO 0851 Aspirin 81 MG DAILY 05/24 1133 05/30 PO 0852 Cholecalciferol 1,000 IU DAILY 05/24 1133 05/30 PO 0851 Doxazosin Mesylate 4 MG DAILY 05/24 1134 05/30 PO 0851 Ferric Sodium 125 MG Q48H 05/29 2100 DC Gluconate Complex IV 06/08 2159 Sodium Chloride 100 ML Ferric Sodium 125 MG Q48H 05/29 0900 05/29 Gluconate Complex IV 06/10 0959 1006 Sodium Chloride 100 ML Furosemide 40 MG ONCE ONE 05/30 0945 SC 05/30 IV 05/30 0946 1518 Furosemide 40 MG ONCE ONE 05/29 2100 DC 05/29 IV 05/29 2101 2125 Furosemide 40 MG DAILY 05/29 0900 05/30 IV 0850 Heparin Sodium/ 25,000 UNIT Q24H 05/29 0915 DC 05/29 Dextrose IV 1007 Dextrose/Water 500 ML Hydralazine HCl 5 MG ONCE ONE 05/29 1815 DC 05/29 IV 05/29 181 1825 Hydralazine HCl 100 MG TID 05/24 1400 05/30 PO 1518 Isosorbide 60 MG DAILY 05/24 1136 05/30 Mononitrate PO 0852 Labetalol HCl 300 MG BID 05/24 1800 05/30 PO 0851 Multivitamins 1 TAB DAILY 05/24 1136 05/30 Therapeutic PO 0851 Polyethylene Glycol 17 GM DAILY 05/27 1401 05/30 PO 0850 Pravastatin Sodium 20 MG 1700 05/24 1700 05/29 PO 1747 Senna/Docusate Sodium 1 TAB BID PRN 05/27 1415 05/27 PO 1426 Sevelamer Carbonate 800 MG WM 05/24 1200 05/30 PO 1225 Spironolactone 12.5 MG DAILY 05/24 1137 05/30 PO 0850 Tramadol HCl 50 MG BID PRN 05/24 1145 05/26 PO 2008 Vitamin E 200 IU DAILY 05/24 1138 05/30 PO 0853 Last 24 Hrs of Lab/Ray Results Last 24 Hrs of Labs/Mics: Laboratory Tests 05/30/18 0635: Anion Gap 13, Estimated GFR 14 L, BUN/Creatinine Ratio 15.0, CBC w Diff NO MAN DIFF REQ, RBC 2.31 L, MCV 92.5, MCH 29.6, MCHC 32.0 L, RDW 15.7 H, MPV 10.1, Gran % 71.4, Lymphocytes % 14.1 L, Monocytes % 11.4 H, Eosinophils % 2.5, Basophils % 0.6, Absolute Granulocytes 4.6, Absolute Lymphocytes 0.9 L, Absolute Monocytes 0.7 H, Absolute Eosinophils 0.2, Absolute Basophils 0 05/30/18 0040: CBC w Diff NO MAN DIFF REQ, RBC 2.21 L, MCV 92.4, MCH 30.0, MCHC 32.5 L, RDW 15.4 H, MPV 9.8, Gran % 75.1, Lymphocytes % 11.8 L, Monocytes % 10.7 H, Eosinophils % 1.6, Basophils % 0.8, Absolute Granulocytes 4.9, Absolute Lymphocytes 0.8 L, Absolute Monocytes 0.7 H, Absolute Eosinophils 0.1, Absolute Basophils 0.1 Assessment/Plan Assessment: Patient is 77-year-old female with past medical history of uncontrolled hypertension, chronic kidney disease, anemia, heart failure with preserved ejection fraction, mild aortic stenosis, sleep apnea on CPAP, chronic venous insufficiency, hyperlipidemia presented with chief complaints of increasing tiredness and intermittent shortness of breath at rest. She was treated with acute on chronic CHF with IV Lasix and chronic anemia with IV blood transfusion. vital sign -temperature 97.6, pulse 58, respiratory 20, blood pressure 122/60, SPO2 95% on room air. On examination-patient was conscious and cooperative, she was saturating 91% on 4 L of nasal cannula, lungs bilateral basilar crackles, heart S1-S2 normal. Assessment and plan- * We will follow cardiology consultation * We will monitor CBC daily and transfuse accordingly * We will follow nephrology recommendation * We will continue the Lasix as before * Strict intake output charting * Urine culture is growing gram-negative rods. Initial urinalysis did not show any WBCs and patient is asymptomatic. I do not think patient needs antibiotic but we will discuss with attending and decide from there. * Diet-CHF diet * DVT prophylaxis-ALP S * CODE STATUS-full code Problem List: 1. Chronic kidney disease 2. Hypertensive urgency 3. CHF (congestive heart failure) 4. Anemia Pain Ratin Pain Location: n/a Pain Goal: Remain pain free Pain Plan: not applicable Tomorrow's Labs & Rationales: f/u cbc, bep, mg DVT/Prophylaxis: mechanical, pharmacological Eulalia Odell MD 05/30/18 0935: Subjective Review of Systems Constitutional: Denies: no symptoms, chills, diaphoresis, fever. Attending MD Review Statement Attending Statement Attending MD Statement: examined this patient, discuss w/resident/PA/CLEAN UP HELPER BANQUET, agreed w/resident/PA/CLEAN UP HELPER BANQUET, reviewed EMR data (avail), discussed with nursing, reviewed images Attending Assessment/Plan: Overall patient is doing better today. She is on 4 L of oxygen and his sat is 93%. She responded well to IV diuresis. Yesterday we had started her both on IV Lasix empirically for volume overload and IV heparin for the possibility of PE although a clinical suspicion for PE was low. She dropped her hemoglobin significantly requiring blood yesterday and in discussion with the serology teacher we felt that this was all likely acute hypoxemic respiratory failure secondary to fluid overload given how quickly she improved with IV diuresis. The heparin has been stopped. She remains anemic and will give her 1 more unit of blood really slowly with extra Lasix after that. Will watch her BUN and creatinine really closely, her chest x-ray from today appears improved and will try to taper off the oxygen as tolerated.
--- NOTE | 2018-05-30 09:31 | RADIOLOGY REPORT ---
EXAMINATION: XR PORTABLE CHEST CLINICAL INFORMATION: Hypoxia. Assess for pulmonary edema. COMPARISON: Previous chest x-ray most recent from yesterday TECHNIQUE: Portable frontal view of the chest was obtained. FINDINGS: The cardiac silhouette is enlarged. There is pulmonary venous redistribution and increased perihilar markings questionable for pulmonary edema. This appears slightly improved from yesterday's exam. The lungs are otherwise clear. There is no significant pleural effusion. IMPRESSION: Stable enlargement of the cardiac silhouette. Improving pulmonary edema from yesterday's exam.
[2018-05-30 15:28] VITALS: BP 122/60
--- NOTE | 2018-05-30 16:16 | PN- Cardiology ---
Subjective Subjective: Breathing has improved following diuresis. Sinus rhythm on telemetry. Objective Vital Signs and I&Os Vital Signs Date Time Temp Pulse Resp B/P B/P Pulse O2 O2 Flow FiO2 Mean Ox Delivery Rate 05/30 1528 97.6 58 20 122/60 95 05/30 1518 98.3 68 20 150/70 05/30 1141 91 Nasal 4.0L Cannula 05/30 0852 98.3 65 20 128/64 05/30 0852 98.3 65 20 128/64 05/30 0851 98.3 65 20 128/64 05/30 0851 98.3 65 20 128/64 05/30 0800 93 Nasal 4.0L Cannula 05/30 0632 98.3 65 20 128/64 94 05/30 0616 56 94 05/30 0337 170/78 05/30 0318 60 95 05/30 0314 59 98 05/30 0019 59 96 05/30 0015 60 99 05/29 2205 98.7 60 18 166/100 97 05/29 2156 Nasal 5.0L Cannula 05/29 2145 60 166/100 05/29 2145 60 166/100 05/29 1825 68 172/74 Intake & Output 05/30 1600 05/30 0800 05/30 0000 05/29 1600 05/29 0800 05/29 0000 Intake Total 120 490 380 360 Output Total 137 892 0174 Balance 120 -60 -120 -641 Intake, Blood 350 Product Intake, IV 40 260 Intake, Oral 120 100 120 360 Number 1 Bowel Movements Output, Stool 1 Output, Urine 272 337 9173 Patient 214 lb 216 lb 216 lb Weight Weight Bed scale Bed scale Measurement Method Physical Exam: Well-developed, overweight elderly female in mild respiratory distress with nasal oxygen in place. Neck: No JVD, no bruits. Lungs: Decreased bibasilar crackles. Heart: S1, S2 with grade 2/6 systolic murmur. Abdomen: Soft, nontender, positive bowel sounds. Extremities: Trace edema. Results Last 48 Hrs of Labs/Mics: Laboratory Tests 05/30/18 0635: Anion Gap 13, Estimated GFR 14 L, BUN/Creatinine Ratio 15.0, CBC w Diff NO MAN DIFF REQ, RBC 2.31 L, MCV 92.5, MCH 29.6, MCHC 32.0 L, RDW 15.7 H, MPV 10.1, Gran % 71.4, Lymphocytes % 14.1 L, Monocytes % 11.4 H, Eosinophils % 2.5, Basophils % 0.6, Absolute Granulocytes 4.6, Absolute Lymphocytes 0.9 L, Absolute Monocytes 0.7 H, Absolute Eosinophils 0.2, Absolute Basophils 0 05/30/18 0040: CBC w Diff NO MAN DIFF REQ, RBC 2.21 L, MCV 92.4, MCH 30.0, MCHC 32.5 L, RDW 15.4 H, MPV 9.8, Gran % 75.1, Lymphocytes % 11.8 L, Monocytes % 10.7 H, Eosinophils % 1.6, Basophils % 0.8, Absolute Granulocytes 4.9, Absolute Lymphocytes 0.8 L, Absolute Monocytes 0.7 H, Absolute Eosinophils 0.1, Absolute Basophils 0.1 05/29/18 1640: CBC w Diff NO MAN DIFF REQ, RBC 1.92 L, MCV 92.4, MCH 29.6, MCHC 32.1 L, RDW 15.6 H, MPV 9.4, Gran % 76.2 H, Lymphocytes % 12.6 L, Monocytes % 10.1 H, Eosinophils % 0.6, Basophils % 0.5, Absolute Granulocytes 4.4, Absolute Lymphocytes 0.7 L, Absolute Monocytes 0.6, Absolute Eosinophils 0, Absolute Basophils 0 05/29/18 1600: APTT 46 H, CBC w Diff NO MAN DIFF REQ, RBC 1.96 L, MCV 92.3, MCH 29.6, MCHC 32.1 L, RDW 15.7 H, MPV 9.6, Gran % 78.3 H, Lymphocytes % 11.9 L, Monocytes % 8.7, Eosinophils % 0.6, Basophils % 0.5, Absolute Granulocytes 4.6, Absolute Lymphocytes 0.7 L, Absolute Monocytes 0.5, Absolute Eosinophils 0, Absolute Basophils 0 05/29/18 1000: Anion Gap 8, Estimated GFR 13 L, BUN/Creatinine Ratio 13.2, Troponin I 0.05 05/29/18 0450: Magnesium 2.5 H, Troponin I 0.05, D-Dimer High Sensitivty 1186 H 05/29/18 0345: pH 7.39, pCO2 42, pO2 75 L, HCO3 25, ABG O2 Sat (Measured) 94.0 L, P-50 (Temp Corrected) Y, Carboxyhemoglobin 0 L, O2 Concentration % 100%, Temperature 98.8, O2 Delivery Method NRB, Phlebotomy Draw Site RIGHT RADIAL Recent Imaging Studies: CXR 05/30/2018 Stable enlargement of the cardiac silhouette. Improving pulmonary edema from yesterday's exam. Assessment/Plan Assessment/Plan [id number] w/ hx of difficult to control HTN, HLD, CKD, anemia, mild MS, mild , LVH w/ DD, HFpEF, NITHIN on CPAP, mod pul HTN, chronic venous insufficiency, etc. who complained of SOB early 05/29/2018 a.m. w/o CPAP mask on & w/ an 02 sat of 77% w/ CXR c/w increased central vascular and interstitial prominence suspicious for edema, marked anemia, an elevated d-dimer, etc. She was placed on BiPAP, IV heparin for possible PE, & rec'd IV furosemide 40 mg x 2 w/ improved overall status, decreased BP, decreased oxygen demand, improved CXR, decreased creatinine, etc. and had the IV heparin dc'd and subsequently received pRBCs for the anemia. Recommendations: * Continue IV furosemide 40 mg 1 and reassess the need for further IV diuresis in the a.m. * Continue to follow-up H/H. * DVT prophylaxis per Continue telemetry? Yes
[2018-05-30 19:16] LABS: ABSOLUTE BASOPHIL COUNT 0.1 /CUMM (0.0-0.2); ABSOLUTE EOSINOPHIL COUNT 0.2 /CUMM (0.0-0.7); ABSOLUTE GRANULOCYTE CT 5.6 /CUMM (1.4-6.5); ABSOLUTE LYMPH COUNT 0.8 /CUMM (1.2-3.4); ABSOLUTE MONOCYTE COUNT 0.6 /CUMM (0.10-0.60); BASOPHIL % 0.7 % (0.0-2.0); EOSINOPHIL % 3.1 % (0-5); GRANULOCYTE % 76.5 % (42.2-75.2); HEMATOCRIT 24.8 % (37-47); MEAN CORPUSCULAR HGB 29.7 PG (27.0-31.0); MEAN CORPUSCULAR HGB CONC 32.3 G/DL (33.0-37.0); MEAN CORPUSCULAR VOLUME 91.8 FL (81.0-99.0); MEAN PLATELET VOLUME 10.1 FL (7.4-10.4); PLATELET COUNT 238 /CUMM (130-400); RBC DISTRIBUTION WIDTH 15.8 % (11.5-14.5); WHITE BLOOD CELL COUNT 7.4 /CUMM (4.8-10.8)
[2018-05-30 22:26] VITALS: BP 120/66
--- NOTE | 2018-05-30 23:20 | RADIOLOGY REPORT ---
EXAMINATION: XR PORTABLE CHEST CLINICAL INFORMATION: Shortness of breath. COMPARISON: Chest x-ray 05/30/2018 8:34 AM. TECHNIQUE: Portable frontal view of the chest was obtained. 10:53 PM FINDINGS: The heart size is enlarged. There is moderate central pulmonary vascular congestion. The severity of the pulmonary vascular congestion is similar to the exam performed this a.m. Haziness at lung bases probably related to bilateral pleural effusions is similar to prior study as well. IMPRESSION: No significant change congestive heart failure since prior chest x-ray this a.m.
--- NOTE | 2018-05-31 06:10 | Event Note ---
Event Note Event Note: Situation: The patient had low O2 saturation and dyspnea at 22:30 May 30. Background: This is a 77-year-old female with a past medical history of CKD stage IV, anemia , hypertension, CHF, hyperlipidemia, chronic venous insufficiency, that comes in to see us for 2 weeks of worsening dyspnea at rest and exertion, lower extremity edema, mild left chest pressure worse on exertion, and hypertension on BP log book. Assessment: I Visited her, she had increased labored breathing using her accessory muscles. She had bibasilar rales. She has a previous history of dypnea at the hospital. IA: 80, BP: 120/66, RR: 36 Recommendation: Respiratory put her on BiPAP, CXR was obtained which showed no change to the previous one. 40 mgs of IV lasix was administerd for her. I visited the patient multiple times during night and her situation improved, She was on BiPAP last time I visited her, Her O2 sat was 96, and she was sleeping with normal breathing.
[2018-05-31 06:49] VITALS: BP 136/88
--- NOTE | 2018-05-31 07:49 | PN- Housestaff ---
Cesar DUNN,Katherine 05/31/18 0749: Subjective Follow-up For: -Mild chest pressure rule out ACS -Acute hypoxic respiratory failure secondary to CHF exacerbation versus pulmonary embolism versus as yet undiagnosed pulmonary pathology. -Hypertensive urgency -Stage IV CKD - proteinuria likely secondary to diabetic neuropathy and hypertensive nephrosclerosis -Chronic anemia -Mild hypernatremia Tele-Events Since Last Visit: Normal sinus rhythm, no events Subjective: Patient seen and examined. She states that she feels "very drained and tired". She states that she has pain in her right ribs that is fairly new in onset and is painful on palpation. The patient notes she has not been walking around. Overnight patient had shortness of breath and was again desaturated to 85% she had male bilateral basilar. She was put on BiPAP and her oxygen increased to 94 % she was also given 40 mg of 6 IV and a chest x-ray was done which was unchanged. His morning patient's vitals are stable and she is on BiPAP 35% which was weaned down to 3.5 L of oxygen maintaining sats above 92%. Review of Systems Constitutional: Reports: weakness. EENTM: Reports: no symptoms. Cardiovascular: Reports: chest pain. Respiratory: Reports: short of breath. Gastrointestinal: Reports: no symptoms. Genitourinary: Reports: no symptoms. Musculoskeletal: Reports: no symptoms. Skin: Reports: no symptoms. Neurological/Psychological: Reports: no symptoms. Hematologic/Endocrine: Reports: no symptoms. Objective Last 24 Hrs of Vital Signs/I&O Vital Signs Date Time Temp Pulse Resp B/P B/P Pulse O2 O2 Flow FiO2 Mean Ox Delivery Rate 05/31 1748 66 24 160/60 05/31 1605 Nasal 3.0L Cannula 05/31 1500 97.7 65 20 210/90 92 Nasal 3.5L Cannula 05/31 1319 51 140/60 05/31 0839 70 138/88 05/31 0839 70 138/88 05/31 0839 70 138/88 05/31 0839 97.6 88 20 136/88 05/31 0830 95 Nasal 4.0L Cannula 05/31 0829 88 95 05/31 0800 95 Nasal 3.0L Cannula 05/31 0649 97.6 58 20 136/88 96 05/31 0208 55 93 05/31 0013 64 142/90 05/31 0012 64 142/90 05/31 0000 94 BIPAP 35% 05/30 2232 90 Nasal 4.0L Cannula 05/30 2229 59 94 05/30 2226 97.0 62 20 120/66 92 Nasal 5.0L Cannula Intake & Output 05/31 1600 05/31 0800 05/31 0000 Intake Total 120 Output Total 1000 1000 900 Balance -1000 -880 -900 Intake, Oral 120 Number 1 Bowel Movements Output, Urine 1000 1000 900 Patient 212 lb Weight Weight Bed scale Measurement Method Physical Exam General Appearance: Alert, Oriented X3, Cooperative, No Acute Distress Skin: No Rashes, No Breakdown, No Significant Lesion Skin Temp/Moisture Exam: Warm/Dry Sepsis Skin Exam (color): Normal for Ethnicity HEENT: Atraumatic, PERRLA, Mucous Membr. moist/pink Neck: Supple, No JVD Cardiovascular: Regular Rate, Normal S1, Normal S2, No Murmurs Lungs: bibasilar crackles Abdomen: Normal Bowel Sounds, Soft, No Tenderness Neurological: Normal Speech Extremities: No Clubbing, No Cyanosis, Normal Pulses, No Tenderness/Swelling, mild extremity edema Vascular: Normal Pulses, Pulses Symmetrical Current Medications: Current Medications Sig/Duong Start time Last Medication Dose Route Stop Time Status Admin Acetaminophen 325 MG .STK-MED ONE 05/30 1954 DC PO 05/30 1955 Acetaminophen 325 MG Q6P PRN 05/25 1500 AC 05/31 PO 1310 Albuterol Sulfate 3 ML Q4P PRN 05/24 1300 AC 05/29 INH 0309 Amlodipine Besylate 10 MG DAILY 05/24 1133 AC 05/31 PO 0839 Aspirin 81 MG DAILY 05/24 1133 AC 05/31 PO 0839 Cholecalciferol 1,000 IU DAILY 05/24 1133 AC 05/31 PO 0839 Doxazosin Mesylate 4 MG DAILY 05/24 1134 AC 05/31 PO 0839 Ferric Sodium 125 MG Q48H 05/29 0900 AC 05/31 Gluconate Complex IV 06/10 0959 0924 Sodium Chloride 100 ML Furosemide 40 MG ONCE ONE 05/30 2245 DC 05/30 IV 05/30 224 2237 Furosemide 40 MG DAILY 05/29 0900 AC 05/31 IV 0840 Heparin Sodium/ 25,000 UNIT Q24H 05/31 1045 DC Dextrose IV Dextrose/Water 500 ML Hydralazine HCl 100 MG TID 05/24 1400 AC 05/31 PO 1319 Isosorbide 90 MG DAILY 06/01 0900 AC Mononitrate PO Isosorbide 60 MG DAILY 05/24 1136 DC 05/31 Mononitrate PO 0839 Labetalol HCl 300 MG BID 05/24 1800 AC 05/31 PO 0839 Multivitamins 1 TAB DAILY 05/24 1136 AC 05/31 Therapeutic PO 0838 Polyethylene Glycol 17 GM DAILY 05/27 1401 AC 05/31 PO 0840 Pravastatin Sodium 20 MG 1700 05/24 1700 AC 05/31 PO 1721 Senna/Docusate Sodium 1 TAB BID PRN 05/27 1415 AC 05/27 PO 1426 Sevelamer Carbonate 800 MG WM 05/24 1200 AC 05/31 PO 1720 Spironolactone 12.5 MG DAILY 05/24 1137 AC 05/31 PO 0840 Tramadol HCl 50 MG BID PRN 05/24 1145 DC 05/26 PO 2008 Vitamin E 200 IU DAILY 05/24 1138 AC 05/31 PO 0840 Last 24 Hrs of Lab/Ray Results Last 24 Hrs of Labs/Mics: Laboratory Tests 05/31/18 0644: Anion Gap 12, Estimated GFR 15 L, BUN/Creatinine Ratio 14.5, Magnesium 2.4 H, CBC w Diff NO MAN DIFF REQ, RBC 2.54 L, MCV 92.1, MCH 29.9, MCHC 32.5 L, RDW 15.3 H, MPV 9.6, Gran % 76.4 H, Lymphocytes % 11.1 L, Monocytes % 8.0, Eosinophils % 3.7, Basophils % 0.8, Absolute Granulocytes 5.5, Absolute Lymphocytes 0.8 L, Absolute Monocytes 0.6, Absolute Eosinophils 0.3, Absolute Basophils 0.1 Assessment/Plan Assessment: This is a 77-year-old female with a past medical history of CKD stage IV, anemia , hypertension, CHF, hyperlipidemia, chronic venous insufficiency, that comes in to see us for 2 weeks of worsening dyspnea at rest and exertion, lower extremity edema, mild left chest pressure worse on exertion, and hypertension on BP log book. Her blood pressure was recently increased from 5 mg to 10 mg but she has continued to have high blood pressures for the past month, sometimes in the low 200s. She is usually on 40 mg of Lasix daily but has continued to have lower extremity edema and complains now of orthopnea. Her last echocardiogram showed stage I diastolic dysfunction but preserved ejection fraction. On physical exam , the patient is using her accessory muscles of breathing and notes worsening shortness of breath when walking to the bathroom. In the ED, her vitals showed temperature 98.6, heart rate 111, respiratory rate 20, blood pressure 211/100 which decreased to 172/74 with 10 mg hydralazine push. Oxygen saturation at admission was 85% on room air which increased to 94% on 2 L and with IV Lasix 80 mg. On the floors, patient had a repeat blood pressure done which showed 240/100 in the left arm and 220/100 in the right arm. Her labs showed anemia with a hemoglobin of 8.6 which is baseline for her, mild hypernatremia of 146, BUN of 41, creatinine 2.9 which is chronic for her. Troponin was negative, proBNP was 17,800. LFTs were normal. Chest x-ray showed mildly increasing perihilar interstitial prominence concerning for developing congestion. In the ED, the patient was given hydralazine push 10 mg, Lasix 80 mg IV, Tylenol , Nitro-Bid Assessment -Mild chest pressure rule out ACS -Acute hypoxic respiratory failure secondary to CHF exacerbation versus pulmonary embolism versus as yet undiagnosed pulmonary pathology. -Hypertensive urgency -Stage IV CKD - proteinuria likely secondary to diabetic neuropathy and hypertensive nephrosclerosis -Chronic anemia -Mild hypernatremia -righ rib pain Plan - Overnight patient had shortness of breath and was again desaturated to 85% she had male bilateral basilar. She was put on BiPAP and her oxygen increased to 94 % she was also given 40 mg of Lasix IV extra and a chest x-ray was done which was unchanged. His morning patient's vitals are stable and she is on BiPAP 35% which was weaned down to 3.5 L of oxygen maintaining sats above 92%. -Continue patient on 40 mg Lasix IV and follow further cardio recommendations. Patient is on spironolactone 12.5. As per cardio we will increase the isosorbide dose as well. -Wean from BiPAP as able -4 patient's right rib pain order a rib x-ray unilateral right side. -As per cardiac consult the patient was started on labetalol 300 mg twice a day and as per renal, can uptitrate as needed for her blood pressure if SBP greater than 160. We continued her other blood pressure medications hydralazine 100 mg 3 times a day, amlodipine 10. We will hold patient's bystolic which she was receiving before she was admitted. -Lower extremity doppler US was negative previously. Over the weekend the patient acutely decompensated respiratory hernandez and her d-dimer was elevated, so we ordered another lower extremity Doppler ultrasound. Of note, we cannot do CTA secondary to patient's renal failure and V/Q scan was not available during the weekend. In the meantime we started the patient on heparin drip. When his lower extremity Doppler returned negative and CBC showed a low blood count the heparin was stopped. 2 units of blood were given. -She has acute on chronic anemia. We have consulted by phone with GI who states that we should do a guaiac on the stools and let them know of any acute changes and blood count. Before heparin, guaiac was done and was negative. Low blood count returned almost within an hour starting heparin which as per Surendra Chou MD, would not be so quick to decrease. We'll follow up CBC and alert Dr. Chou of any acute changes. She could follow-up with him outpatient as well. -All troponins and EKGs have been negative for ACS. -Daily weights, strict I's and O's, patient has good diuresis on Lasix. The patient was switched from Lasix 40 by mouth to IV this weekend during her acute decompensation. -Echocardiogram showed at least type II diastolic dysfunction with moderate pulmonary hypertension and ejection fraction 60-65% with elevated filling pressures. -[facility] nebs -Renal is seeing the patient and suggested giving Epogen if her blood pressure stabilizes, 10,000 units prior to discharge. Also IV ferrlicet 125 mg every other day for 8 doses. As per renal we cannot give our RAAS secondary to her renal issues. Patient will receive iron at the infusion center after she is discharged. Patient's creatinine is hovering around 3.5. -Encourage low salt diet -Continue patient's other home medications including tramadol, doxazosin, multivitamin, vitamin E/D. -We did a follow-up chest x-ray which showed resolution of her congestion. -We have ordered physical therapy as patient has not walked much to get a baseline suggestion of patient's functional status CHF diet Patient is full code DVT prophylaxis with Alps and heparin subcu Problem List: 1. Hypertensive urgency 2. Chronic kidney disease 3. CHF (congestive heart failure) Pain Ratin Pain Location: right ribs Pain Goal: Pain 4 or less Pain Plan: as needed Tomorrow's Labs & Rationales: Yanet Leon 05/31/18 1518: Attending MD Review Statement Attending Statement Attending MD Statement: examined this patient, discuss w/resident/PA/PNEUMATIC RIVETER, agreed w/resident/PA/PNEUMATIC RIVETER, reviewed EMR data (avail), discussed with nursing, discussed with case mgmt Attending Assessment/Plan: CHF exacerbation- currently on 40mg iv lasix. will f/u on cardio recommendations. Anemia requiring blood transfusions- hb 7.6 today. will get GI consult to evaluate for anemia. pt already on iv iron insusions. renal following the pt for CKD.
[2018-05-31 07:52] LABS: ABSOLUTE BASOPHIL COUNT 0.1 /CUMM (0.0-0.2); ABSOLUTE EOSINOPHIL COUNT 0.3 /CUMM (0.0-0.7); ABSOLUTE GRANULOCYTE CT 5.5 /CUMM (1.4-6.5); ABSOLUTE LYMPH COUNT 0.8 /CUMM (1.2-3.4); ABSOLUTE MONOCYTE COUNT 0.6 /CUMM (0.10-0.60); BASOPHIL % 0.8 % (0.0-2.0); EOSINOPHIL % 3.7 % (0-5); GRANULOCYTE % 76.4 % (42.2-75.2); HEMATOCRIT 23.4 % (37-47); MEAN CORPUSCULAR HGB 29.9 PG (27.0-31.0); MEAN CORPUSCULAR HGB CONC 32.5 G/DL (33.0-37.0); MEAN CORPUSCULAR VOLUME 92.1 FL (81.0-99.0); MEAN PLATELET VOLUME 9.6 FL (7.4-10.4); PLATELET COUNT 238 /CUMM (130-400); RBC DISTRIBUTION WIDTH 15.3 % (11.5-14.5); RED BLOOD CELL CT 2.54 /CUMM (4.20-5.40); WHITE BLOOD CELL COUNT 7.2 /CUMM (4.8-10.8)
--- NOTE | 2018-05-31 10:46 | PN- Cardiology ---
Subjective Subjective: Patient seen at bedside. Patient appears mildly tachypneic and dyspneic on nasal cannula. However patient does report that her breathing is improved compared to the respiratory distress she experienced over the weekend. Patient denies chest pain, palpitations, productive cough. Objective Vital Signs and I&Os Vital Signs Date Time Temp Pulse Resp B/P B/P Pulse O2 O2 Flow FiO2 Mean Ox Delivery Rate 05/31 0839 70 138/88 05/31 0839 70 138/88 05/31 0839 70 138/88 05/31 0839 97.6 88 20 136/88 05/31 0830 95 Nasal 4.0L Cannula 05/31 0829 88 95 05/31 0649 97.6 58 20 136/88 96 05/31 0208 55 93 05/31 0013 64 142/90 05/31 0012 64 142/90 05/31 0000 94 BIPAP 35% 05/30 2232 90 Nasal 4.0L Cannula 05/30 2229 59 94 05/30 2226 97.0 62 20 120/66 92 Nasal 5.0L Cannula 05/30 1528 97.6 58 20 122/60 95 05/30 1518 98.3 68 20 150/70 05/30 1141 91 Nasal 4.0L Cannula Intake & Output 05/31 1600 05/31 0800 05/31 0000 05/30 1600 05/30 0800 05/30 0000 Intake Total 120 1460 120 490 Output Total 9904 334 7858 550 Balance -880 -900 -140 120 -60 Intake, Blood 350 Product Intake, IV 500 40 Intake, Oral 120 960 120 100 Output, Urine 3842 161 1639 550 Patient 96.162 kg 97.069 kg Weight Weight Bed scale Measurement Method Physical Exam: General: Appears mildly tachypneic, on nasal cannula, no acute distress HEENT: NCAT, NO JVD Heart: s1s2, RRR, + systolic ejection murmur Lungs: Good air entry bilaterally, bibasilar crackles Abd: soft, nt Ext: no peripheral edema, chronic skin changes Current Medications: Current Medications Sig/Duong Start time Last Medication Dose Route Stop Time Status Admin Acetaminophen 325 MG .STK-MED ONE 05/30 1954 DC PO 05/30 1955 Acetaminophen 650 MG .STK-MED ONE 05/304 DC PO 05/30 122 Acetaminophen 325 MG Q6P PRN 05/25 1500 AC 05/30 PO 1955 Albuterol Sulfate 3 ML Q4P PRN 05/24 1300 AC 05/29 INH 0309 Amlodipine Besylate 10 MG DAILY 05/24 1133 AC 05/31 PO 0839 Aspirin 81 MG DAILY 05/24 1133 AC 05/31 PO 0839 Cholecalciferol 1,000 IU DAILY 05/24 1133 AC 05/31 PO 0839 Doxazosin Mesylate 4 MG DAILY 05/24 1134 AC 05/31 PO 0839 Ferric Sodium 125 MG Q48H 05/29 0900 AC 05/31 Gluconate Complex IV 06/10 0959 0924 Sodium Chloride 100 ML Furosemide 40 MG ONCE ONE 05/30 2245 DC 05/30 IV 05/30 2246 2237 Furosemide 40 MG DAILY 05/29 0900 AC 05/31 IV 0840 Hydralazine HCl 100 MG TID 05/24 1400 AC 05/31 PO 0839 Isosorbide 60 MG DAILY 05/24 1136 AC 05/31 Mononitrate PO 0839 Labetalol HCl 300 MG BID 05/24 1800 AC 05/31 PO 0839 Multivitamins 1 TAB DAILY 05/24 1136 AC 05/31 Therapeutic PO 0838 Polyethylene Glycol 17 GM DAILY 05/27 1401 AC 05/31 PO 0840 Pravastatin Sodium 20 MG 1700 05/24 1700 AC 05/30 PO 1834 Senna/Docusate Sodium 1 TAB BID PRN 05/27 1415 AC 05/27 PO 1426 Sevelamer Carbonate 800 MG WM 05/24 1200 AC 05/31 PO 0840 Spironolactone 12.5 MG DAILY 05/24 1137 AC 05/31 PO 0840 Tramadol HCl 50 MG BID PRN 05/24 1145 AC 05/26 PO 2008 Vitamin E 200 IU DAILY 05/24 1138 AC 05/31 PO 0840 Results Last 48 Hrs of Labs/Mics: Laboratory Tests 05/31/18 0644: Anion Gap 12, Estimated GFR 15 L, BUN/Creatinine Ratio 14.5, Magnesium 2.4 H, CBC w Diff NO MAN DIFF REQ, RBC 2.54 L, MCV 92.1, MCH 29.9, MCHC 32.5 L, RDW 15.3 H, MPV 9.6, Gran % 76.4 H, Lymphocytes % 11.1 L, Monocytes % 8.0, Eosinophils % 3.7, Basophils % 0.8, Absolute Granulocytes 5.5, Absolute Lymphocytes 0.8 L, Absolute Monocytes 0.6, Absolute Eosinophils 0.3, Absolute Basophils 0.1 05/30/18 1800: CBC w Diff NO MAN DIFF REQ, RBC 2.70 L, MCV 91.8, MCH 29.7, MCHC 32.3 L, RDW 15.8 H, MPV 10.1, Gran % 76.5 H, Lymphocytes % 10.9 L, Monocytes % 8.8, Eosinophils % 3.1, Basophils % 0.7, Absolute Granulocytes 5.6, Absolute Lymphocytes 0.8 L, Absolute Monocytes 0.6, Absolute Eosinophils 0.2, Absolute Basophils 0.1 05/30/18 0635: Anion Gap 13, Estimated GFR 14 L, BUN/Creatinine Ratio 15.0, CBC w Diff NO MAN DIFF REQ, RBC 2.31 L, MCV 92.5, MCH 29.6, MCHC 32.0 L, RDW 15.7 H, MPV 10.1, Gran % 71.4, Lymphocytes % 14.1 L, Monocytes % 11.4 H, Eosinophils % 2.5, Basophils % 0.6, Absolute Granulocytes 4.6, Absolute Lymphocytes 0.9 L, Absolute Monocytes 0.7 H, Absolute Eosinophils 0.2, Absolute Basophils 0 05/30/18 0040: CBC w Diff NO MAN DIFF REQ, RBC 2.21 L, MCV 92.4, MCH 30.0, MCHC 32.5 L, RDW 15.4 H, MPV 9.8, Gran % 75.1, Lymphocytes % 11.8 L, Monocytes % 10.7 H, Eosinophils % 1.6, Basophils % 0.8, Absolute Granulocytes 4.9, Absolute Lymphocytes 0.8 L, Absolute Monocytes 0.7 H, Absolute Eosinophils 0.1, Absolute Basophils 0.1 05/29/18 1640: CBC w Diff NO MAN DIFF REQ, RBC 1.92 L, MCV 92.4, MCH 29.6, MCHC 32.1 L, RDW 15.6 H, MPV 9.4, Gran % 76.2 H, Lymphocytes % 12.6 L, Monocytes % 10.1 H, Eosinophils % 0.6, Basophils % 0.5, Absolute Granulocytes 4.4, Absolute Lymphocytes 0.7 L, Absolute Monocytes 0.6, Absolute Eosinophils 0, Absolute Basophils 0 05/29/18 1600: APTT 46 H, CBC w Diff NO MAN DIFF REQ, RBC 1.96 L, MCV 92.3, MCH 29.6, MCHC 32.1 L, RDW 15.7 H, MPV 9.6, Gran % 78.3 H, Lymphocytes % 11.9 L, Monocytes % 8.7, Eosinophils % 0.6, Basophils % 0.5, Absolute Granulocytes 4.6, Absolute Lymphocytes 0.7 L, Absolute Monocytes 0.5, Absolute Eosinophils 0, Absolute Basophils 0 Recent Imaging Studies: telemetry - personally reviewed; sinus rhythm/sinus bradycardia in the 50s bpm Assessment/Plan Assessment/Plan 1. Hypertensive urgency 2. Acute on chronic heart failure with preserved ejection fraction 3. Chronic kidney disease 4. History of mild aortic stenosis 5. Sleep apnea 6. Chronic venous insufficiency 7. Hyperlipidemia 8. Chronic anemia s/p 2Units PRBCs Patient had an episode of respiratory distress with desaturation over the weekend. Patient was diuresed with IV Lasix and was also transfused 2 units of PRBCs. Patient was significantly hypertensive when she went back into heart failure, however now her blood pressure is well controlled. Isosorbide mononitrate can be increased to 90 mg daily to decrease preload as well as further improve blood pressure control. Otherwise continue with current antihypertensive regimen. Continue with aspirin and statin. We will continue to defer dose of diuretic as per nephrology recommendations. Continue telemetry? Yes
[2018-05-31 15:00] VITALS: BP 210/90
--- NOTE | 2018-05-31 15:04 | RADIOLOGY REPORT ---
EXAMINATION: XR RIBS, RIGHT CLINICAL INFORMATION: Rib injury with rib pain COMPARISON: Chest x-ray from 05/30/2018 and 05/29/2018. TECHNIQUE: 3 views of the right ribs were obtained. A single AP film of the chest is obtained FINDINGS: There is cardiomegaly, unchanged. Central vascular congestion appears slightly improved over the most recent prior exam. There are probable small bilateral pleural effusions. There is no pneumothorax. Right rib views shows probable subacute healing fractures involving the anterior ends of the ninth through 11th ribs on the right. There is no significant displacement. No other fractures are identified. No focal bone lesion is seen. IMPRESSION: Subacute healing fractures involving the anterior ends of the ninth through 11th ribs on the right. No pneumothorax. Cardiomegaly and small bilateral pleural effusions.
[2018-05-31 17:48] VITALS: BP 160/60
[2018-05-31 21:59] VITALS: BP 146/70
[2018-06-01 06:16] VITALS: BP 156/58
--- NOTE | 2018-06-01 07:34 | PN- Housestaff ---
Cesar DUNN,Katherine 06/01/18 0733: Subjective Follow-up For: chf exacerbation anemia Subjective: Patient states that she is feeling good today. No complaints. Vitals are stable and she was on BIPAP 3L overnight. She states that she has more energy than normal. Review of Systems Constitutional: Reports: no symptoms. EENTM: Reports: no symptoms. Cardiovascular: Reports: no symptoms. Respiratory: Reports: no symptoms. Gastrointestinal: Reports: no symptoms. Genitourinary: Reports: no symptoms. Neurological/Psychological: Reports: no symptoms. Objective Last 24 Hrs of Vital Signs/I&O Vital Signs Date Time Temp Pulse Resp B/P B/P Pulse O2 O2 Flow FiO2 Mean Ox Delivery Rate 06/01 1412 98.1 58 20 148/60 94 Nasal 3.5L Cannula 06/01 1344 18 93 Nasal 4.0L Cannula 06/01 1342 18 87 Room Air 06/01 1246 150/56 06/01 1221 93 Nasal 4.0L Cannula 06/01 0957 98.1 62 20 156/58 06/01 0956 98.1 62 20 156/58 06/01 0956 98.1 62 20 156/58 06/01 0955 98.1 62 20 156/58 06/01 0800 Nasal 3.0L Cannula 06/01 0616 98.1 62 20 156/58 97 BIPAP 06/01 0000 BIPAP 3.0L 05/31 2159 97.8 64 22 146/70 92 Nasal Cannula 05/31 2139 79 97 05/31 2138 94 Nasal 4.0L Cannula 05/31 2005 64 160/60 05/31 2004 64 160/60 05/31 1748 66 24 160/60 05/31 1605 Nasal 3.0L Cannula Intake & Output 06/01 1600 06/01 0800 06/01 0000 Intake Total 240 120 300 Output Total 600 500 750 Balance -360 -380 -450 Intake, Oral 240 120 300 Output, Urine 600 500 750 Patient 210 lb Weight Weight Bed scale Measurement Method Physical Exam General Appearance: Alert, Oriented X3, Cooperative, No Acute Distress Skin Temp/Moisture Exam: Warm/Dry Sepsis Skin Exam (color): Normal for Ethnicity HEENT: Atraumatic, EOMI, Mucous Membr. moist/pink Cardiovascular: Regular Rate, Normal S1, Normal S2 Lungs: Clear to Auscultation, Normal Air Movement Abdomen: Normal Bowel Sounds, Soft, No Tenderness Neurological: Normal Speech Current Medications: Current Medications Sig/Duong Start time Last Medication Dose Route Stop Time Status Admin Acetaminophen 325 MG .STK-MED ONE 05/31 2133 DC PO 05/31 2134 Acetaminophen 325 MG Q6P PRN 05/25 1500 AC 05/31 PO 2135 Albuterol Sulfate 3 ML Q4P PRN 05/24 1300 AC 05/29 INH 0309 Amlodipine Besylate 10 MG DAILY 05/24 1133 AC 06/01 PO 0956 Aspirin 81 MG DAILY 05/24 1133 AC 06/01 PO 0957 Cholecalciferol 1,000 IU DAILY 05/24 1133 AC 06/01 PO 0956 Doxazosin Mesylate 4 MG DAILY 05/24 1134 AC 06/01 PO 0956 Ferric Sodium 125 MG Q48H 05/29 0900 AC 05/31 Gluconate Complex IV 06/10 0959 0924 Sodium Chloride 100 ML Furosemide 40 MG DAILY 06/02 09 AC PO Furosemide 40 MG DAILY 05/29 0900 DC 06/01 IV 0955 Hydralazine HCl 100 MG TID 05/24 1400 AC 06/01 PO 1246 Isosorbide 90 MG DAILY 06/01 0900 AC 06/01 Mononitrate PO 0955 Isosorbide 60 MG DAILY 05/24 1136 DC 05/31 Mononitrate PO 0839 Labetalol HCl 300 MG BID 05/24 1800 AC 06/01 PO 0956 Multivitamins 1 TAB DAILY 05/24 1136 AC 06/01 Therapeutic PO 0956 Polyethylene Glycol 17 GM DAILY 05/27 1401 AC 06/01 PO 0958 Pravastatin Sodium 20 MG 1700 05/24 1700 AC 05/31 PO 1721 Senna/Docusate Sodium 1 TAB BID PRN 05/27 1415 AC 05/27 PO 1426 Sevelamer Carbonate 800 MG WM 05/24 1200 AC 06/01 PO 1246 Spironolactone 12.5 MG DAILY 05/24 1137 AC 06/01 PO 0958 Vitamin E 200 IU DAILY 05/24 1138 AC 06/01 PO 0957 Last 24 Hrs of Lab/Ray Results Last 24 Hrs of Labs/Mics: Laboratory Tests 06/01/18 0657: CBC w Diff NO MAN DIFF REQ, RBC 2.55 L, MCV 92.6, MCH 30.4, MCHC 32.9 L, RDW 15.4 H, MPV 9.8, Gran % 68.5, Lymphocytes % 17.1 L, Monocytes % 8.4, Eosinophils % 5.4 H, Basophils % 0.6, Absolute Granulocytes 4.6, Absolute Lymphocytes 1.2, Absolute Monocytes 0.6, Absolute Eosinophils 0.4, Absolute Basophils 0 Assessment/Plan Assessment: This is a 77-year-old female with a past medical history of CKD stage IV, anemia , hypertension, CHF, hyperlipidemia, chronic venous insufficiency, that comes in to see us for 2 weeks of worsening dyspnea at rest and exertion, lower extremity edema, mild left chest pressure worse on exertion, and hypertension on BP log book. Her blood pressure was recently increased from 5 mg to 10 mg but she has continued to have high blood pressures for the past month, sometimes in the low 200s. She is usually on 40 mg of Lasix daily but has continued to have lower extremity edema and complains now of orthopnea. Her last echocardiogram showed stage I diastolic dysfunction but preserved ejection fraction. On physical exam , the patient is using her accessory muscles of breathing and notes worsening shortness of breath when walking to the bathroom. In the ED, her vitals showed temperature 98.6, heart rate 111, respiratory rate 20, blood pressure 211/100 which decreased to 172/74 with 10 mg hydralazine push. Oxygen saturation at admission was 85% on room air which increased to 94% on 2 L and with IV Lasix 80 mg. On the floors, patient had a repeat blood pressure done which showed 240/100 in the left arm and 220/100 in the right arm. Her labs showed anemia with a hemoglobin of 8.6 which is baseline for her, mild hypernatremia of 146, BUN of 41, creatinine 2.9 which is chronic for her. Troponin was negative, proBNP was 17,800. LFTs were normal. Chest x-ray showed mildly increasing perihilar interstitial prominence concerning for developing congestion. In the ED, the patient was given hydralazine push 10 mg, Lasix 80 mg IV, Tylenol , Nitro-Bid Assessment -Mild chest pressure rule out ACS -Acute hypoxic respiratory failure secondary to CHF exacerbation versus pulmonary embolism versus as yet undiagnosed pulmonary pathology. -Hypertensive urgency -Stage IV CKD - proteinuria likely secondary to diabetic neuropathy and hypertensive nephrosclerosis -Chronic anemia -Mild hypernatremia -righ rib pain Plan - Overnight patient had shortness of breath and was again desaturated to 85% she had male bilateral basilar. She was put on BiPAP and her oxygen increased to 94 % she was also given 40 mg of Lasix IV extra and a chest x-ray was done which was unchanged. His morning patient's vitals are stable and she is on BiPAP 3L. -Inch patient from 40 mg Lasix IV to 40 mg Lasix by mouth. Patient is on spironolactone 12.5. As per cardio we increased the isosorbide dose as well. -Wean from oxygen and BiPAP as able -For patient's right rib pain order a rib x-ray unilateral right side which showed subacute healing fractures involving the anterior end of the ninth through 11th ribs on the right with no pneumothorax. -As per cardiac consult the patient was started on labetalol 300 mg twice a day and as per renal, can uptitrate as needed for her blood pressure if SBP greater than 160. We continued her other blood pressure medications hydralazine 100 mg 3 times a day, amlodipine 10. We will hold patient's bystolic which she was receiving before she was admitted. -Lower extremity doppler US was negative previously. Over the weekend the patient acutely decompensated respiratory hernandez and her d-dimer was elevated, so we ordered another lower extremity Doppler ultrasound. Of note, we cannot do CTA secondary to patient's renal failure and V/Q scan was not available during the weekend. In the meantime we started the patient on heparin drip. When his lower extremity Doppler returned negative and CBC showed a low blood count the heparin was stopped. 2 units of blood were given. -She has acute on chronic anemia. We have consulted by phone with GI who states that we should do a guaiac on the stools and let them know of any acute changes and blood count. Before heparin, guaiac was done and was negative. Low blood count returned almost within an hour starting heparin which as per Surendra Chou MD, would not be so quick to decrease. We'll follow up CBC and alert Dr. Chou of any acute changes. She could follow-up with him outpatient as well. -All troponins and EKGs have been negative for ACS. -Daily weights, strict I's and O's, patient has good diuresis on Lasix. The patient was switched from Lasix 40 by mouth to IV this weekend during her acute decompensation. -Echocardiogram showed at least type II diastolic dysfunction with moderate pulmonary hypertension and ejection fraction 60-65% with elevated filling pressures. -[facility] nebs -Renal is seeing the patient and suggested giving Epogen if her blood pressure stabilizes, 10,000 units prior to discharge. Also IV ferrlicet 125 mg every other day for 8 doses. As per renal we cannot give our RAAS secondary to her renal issues. Patient will receive iron at the infusion center after she is discharged. Patient's creatinine is hovering around 3.5. -Encourage low salt diet -Continue patient's other home medications including tramadol, doxazosin, multivitamin, vitamin E/D. -We have ordered physical therapy as patient has not walked much to get a baseline suggestion of patient's functional status CHF diet Patient is full code DVT prophylaxis with Alps and heparin subcu Problem List: 1. CHF (congestive heart failure) Pain Ratin Pain Location: na Pain Goal: Remain pain free Pain Plan: na Tomorrow's Labs & Rationales: Yanet Leon 06/01/18 1328: Attending MD Review Statement Attending Statement Attending MD Statement: examined this patient, discuss w/resident/PA/CHIEF COMPLIANCE OFFICER, agreed w/resident/PA/CHIEF COMPLIANCE OFFICER, reviewed EMR data (avail), discussed with nursing, discussed with case mgmt Attending Assessment/Plan: CHF exacerbation- plan is to change her to po lasix starting tomorrow. 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 NITHIN on cpap at home- pt has not followed up with sleep center for last few years. will give her referral at discharge . Plan dc tomorrow. hb stable.
[2018-06-01 07:45] LABS: ABSOLUTE BASOPHIL COUNT 0 /CUMM (0.0-0.2); ABSOLUTE EOSINOPHIL COUNT 0.4 /CUMM (0.0-0.7); ABSOLUTE GRANULOCYTE CT 4.6 /CUMM (1.4-6.5); ABSOLUTE LYMPH COUNT 1.2 /CUMM (1.2-3.4); ABSOLUTE MONOCYTE COUNT 0.6 /CUMM (0.10-0.60); BASOPHIL % 0.6 % (0.0-2.0); EOSINOPHIL % 5.4 % (0-5); GRANULOCYTE % 68.5 % (42.2-75.2); HEMATOCRIT 23.6 % (37-47); MEAN CORPUSCULAR HGB 30.4 PG (27.0-31.0); MEAN CORPUSCULAR HGB CONC 32.9 G/DL (33.0-37.0); MEAN CORPUSCULAR VOLUME 92.6 FL (81.0-99.0); MEAN PLATELET VOLUME 9.8 FL (7.4-10.4); RBC DISTRIBUTION WIDTH 15.4 % (11.5-14.5); RED BLOOD CELL CT 2.55 /CUMM (4.20-5.40); WHITE BLOOD CELL COUNT 6.8 /CUMM (4.8-10.8)
[2018-06-01 09:20] LABS: PLATELET COUNT 246 /CUMM (130-400)
--- NOTE | 2018-06-01 11:18 | PN- Cardiology ---
Subjective Subjective: Patient feels much better today. She denies chest pain or shortness of breath. Review of Systems: Eyes no blurred or double vision Ears no deafness or ringing Nose and throat no recurrent sinusitis Lungs per history of present illness Heart per history of present illness Abdomen no nausea vomiting Musculoskeletal occasional muscle and joint pains Psych no anxiety or depression Neuro without recurrent headache or seizures Endocrine no heat or cold intolerance Objective Vital Signs and I&Os Vital Signs Date Time Temp Pulse Resp B/P B/P Pulse O2 O2 Flow FiO2 Mean Ox Delivery Rate 06/01 0957 98.1 62 20 156/58 06/01 0956 98.1 62 20 156/58 06/01 0956 98.1 62 20 156/58 06/01 0955 98.1 62 20 156/58 06/01 0616 98.1 62 20 97 BIPAP 06/01 0000 BIPAP 3.0L 05/319 97.8 64 22 146/70 92 Nasal Cannula 05/31 2139 79 97 05/31 2138 94 Nasal 4.0L Cannula 05/31 2005 64 160/60 05/31 2004 64 160/60 05/31 1748 66 24 160/60 05/31 1605 Nasal 3.0L Cannula 05/31 1500 97.7 65 20 210/90 92 Nasal 3.5L Cannula 05/31 1319 51 140/60 Intake & Output 06/01 1600 06/01 0800 06/01 0000 05/31 1600 05/31 0800 05/31 0000 Intake Total 120 300 120 Output Total 511 348 1557 1000 900 Balance -380 -450 -1000 -880 -900 Intake, Oral 120 300 120 Number 1 Bowel Movements Output, Urine 802 058 5479 1000 900 Patient 210 lb 212 lb Weight Weight Bed scale Bed scale Measurement Method Physical Exam: Patient is a well-developed well-nourished female appearing in no acute distress HEENT is unremarkable Neck is supple there is no JVD Lungs are clear Heart regular rhythm S1 and S2 are normal no murmurs gallops or rubs Abdomen bowel sounds positive Extremities without edema Neuro without focal deficits Psych alert and oriented Lymph no adenopathy Current Medications: Current Medications Sig/Duong Start time Last Medication Dose Route Stop Time Status Admin Acetaminophen 325 MG .STK-MED ONE 05/31 2133 DC PO 05/31 213 Acetaminophen 500 MG .STK-MED ONE 05/31 1308 DC PO 05/31 1309 Acetaminophen 325 MG .STK-MED ONE 05/31 1308 DC PO 05/31 1309 Acetaminophen 325 MG Q6P PRN 05/25 1500 AC 05/31 PO 2135 Albuterol Sulfate 3 ML Q4P PRN 05/24 1300 AC 05/29 INH 0309 Amlodipine Besylate 10 MG DAILY 05/24 1133 AC 06/01 PO 0956 Aspirin 81 MG DAILY 05/24 1133 AC 06/01 PO 0957 Cholecalciferol 1,000 IU DAILY 05/24 1133 AC 06/01 PO 0956 Doxazosin Mesylate 4 MG DAILY 05/24 1134 AC 06/01 PO 0956 Ferric Sodium 125 MG Q48H 05/29 0900 AC 05/31 Gluconate Complex IV 06/10 0959 0924 Sodium Chloride 100 ML Furosemide 40 MG DAILY 05/29 0900 AC 06/01 IV 0955 Heparin Sodium/ 25,000 UNIT Q24H 05/31 1045 DC Dextrose IV Dextrose/Water 500 ML Hydralazine HCl 100 MG TID 05/24 1400 AC 06/01 PO 0957 Isosorbide 90 MG DAILY 06/01 0900 AC 06/01 Mononitrate PO 0955 Isosorbide 60 MG DAILY 05/24 1136 DC 05/31 Mononitrate PO 0839 Labetalol HCl 300 MG BID 05/24 1800 AC 06/01 PO 0956 Multivitamins 1 TAB DAILY 05/24 1136 AC 06/01 Therapeutic PO 0956 Polyethylene Glycol 17 GM DAILY 05/27 1401 AC 06/01 PO 0958 Pravastatin Sodium 20 MG 1700 05/24 1700 AC 05/31 PO 1721 Senna/Docusate Sodium 1 TAB BID PRN 05/27 1415 AC 05/27 PO 1426 Sevelamer Carbonate 800 MG WM 05/24 1200 AC 06/01 PO 0818 Spironolactone 12.5 MG DAILY 05/24 1137 AC 06/01 PO 0958 Tramadol HCl 50 MG BID PRN 05/24 1145 DC 05/26 PO 2008 Vitamin E 200 IU DAILY 05/24 1138 AC 06/01 PO 0957 Results Last 48 Hrs of Labs/Mics: Laboratory Tests 06/01/18 0657: CBC w Diff NO MAN DIFF REQ, RBC 2.55 L, MCV 92.6, MCH 30.4, MCHC 32.9 L, RDW 15.4 H, MPV 9.8, Gran % 68.5, Lymphocytes % 17.1 L, Monocytes % 8.4, Eosinophils % 5.4 H, Basophils % 0.6, Absolute Granulocytes 4.6, Absolute Lymphocytes 1.2, Absolute Monocytes 0.6, Absolute Eosinophils 0.4, Absolute Basophils 0 05/31/18 0644: Anion Gap 12, Estimated GFR 15 L, BUN/Creatinine Ratio 14.5, Magnesium 2.4 H, CBC w Diff NO MAN DIFF REQ, RBC 2.54 L, MCV 92.1, MCH 29.9, MCHC 32.5 L, RDW 15.3 H, MPV 9.6, Gran % 76.4 H, Lymphocytes % 11.1 L, Monocytes % 8.0, Eosinophils % 3.7, Basophils % 0.8, Absolute Granulocytes 5.5, Absolute Lymphocytes 0.8 L, Absolute Monocytes 0.6, Absolute Eosinophils 0.3, Absolute Basophils 0.1 05/30/18 1800: CBC w Diff NO MAN DIFF REQ, RBC 2.70 L, MCV 91.8, MCH 29.7, MCHC 32.3 L, RDW 15.8 H, MPV 10.1, Gran % 76.5 H, Lymphocytes % 10.9 L, Monocytes % 8.8, Eosinophils % 3.1, Basophils % 0.7, Absolute Granulocytes 5.6, Absolute Lymphocytes 0.8 L, Absolute Monocytes 0.6, Absolute Eosinophils 0.2, Absolute Basophils 0.1 Telemetry personally reviewed sinus rhythm Assessment/Plan Assessment/Plan 1. Hypertensive urgency 2. Acute on chronic heart failure with preserved ejection fraction 3. Chronic kidney disease 4. History of mild aortic stenosis 5. Sleep apnea 6. Chronic venous insufficiency 7. Hyperlipidemia 8. Chronic anemia s/p 2Units PRBCs Recommendations 1. I would change Lasix to 40 mg p.o. daily 2. Continue her current antihypertensive regimen 3. Plan is for possible discharge tomorrow if she remains stable. 4. Due to renal insufficiency would avoid CONNIE/ARB Continue telemetry? Yes
[2018-06-01 14:12] VITALS: BP 148/60
[2018-06-01 20:04] VITALS: BP 170/72
[2018-06-01 20:12] VITALS: BP 170/72
--- NOTE | 2018-06-01 20:49 | Event Note ---
Event Note Event Note: Situation: I was notified by the nurse, Lisette, about a VTach that was recorded on 19:49. Background: This is a 77-year-old female with a past medical history of CKD stage IV, anemia , hypertension, CHF, hyperlipidemia, chronic venous insufficiency, that comes in to see us for 2 weeks of worsening dyspnea at rest and exertion, lower extremity edema, mild left chest pressure worse on exertion, and hypertension on BP log book. Assessment: The strips showed a 28 beat Vtach. I visited the patient and talked to the nurse. She had no complaints of chest pain, shortness of breath, lightheadedness , dizziness. She has blood pressure of 170/72 heart rate of 68 O2 saturation of 95. Her labs were checked last morning. she had M.4, K: 4.1 yesterday morning. and the last calcium was checked on May 24 which was 8.8 Recommendation: A 12 lead EKG was obtained which showed no changes comparing to the previous one. It was normal sinus rythem of 65. I called Dr. Jonas. discussed the patient with hi He recommended the following workups. Calcium Magnesium Potassium Troponin
[2018-06-01 22:32] VITALS: BP 180/100
[2018-06-02 00:33] VITALS: BP 168/75
[2018-06-02 06:26] VITALS: BP 192/94
--- NOTE | 2018-06-02 07:25 | PN- Housestaff ---
Cesar DUNN,Katherine 06/02/18 0725: Subjective Follow-up For: chf exacerbation Anemia Hypertension Tele-Events Since Last Visit: Last night patient had a 16 beat run of V. tach at 7:49 PM. The rest of her rates are between 56 and 70. During the time of this 16 beat run of V. tach she is asymptomatic blood pressure was 170/72 with a heart rate of 68. Dr. Miller programmer or analyst was called and recommended ordering magnesium, potassium, troponin which were all normal. Subjective: The patient continues to have no symptoms this morning area did her vital signs show an elevated blood pressure 192/94. She is still on 3-4 L of oxygen with BiPAP overnight. The patient is worried about her cardiac issues. She is eating this morning and sitting up in chair. He has not been walking very much all she has been here despite being encouraged. Review of Systems Constitutional: Reports: no symptoms. Cardiovascular: Reports: no symptoms. Respiratory: Reports: short of breath. Gastrointestinal: Reports: no symptoms. Genitourinary: Reports: no symptoms. Musculoskeletal: Reports: no symptoms. Skin: Reports: no symptoms. Objective Last 24 Hrs of Vital Signs/I&O Vital Signs Date Time Temp Pulse Resp B/P B/P Pulse O2 O2 Flow FiO2 Mean Ox Delivery Rate 06/02 1443 62 178/92 06/02 1423 98.5 55 20 178/92 95 Nasal 4.0L Cannula 06/02 1301 BIPAP 3.0L 06/02 1248 BIPAP 3.0L 06/02 1210 45 134/82 06/02 0800 94 Nasal 4.0L Cannula 06/02 0757 66 192/94 06/02 0626 98.7 66 22 192/94 97 BIPAP 06/02 0257 38 467 06/02 0033 61 168/75 06/02 0014 61 92 06/02 0000 BIPAP 06/01 2232 98.8 65 24 180/100 93 06/01 2145 63 93 06/01 2126 65 164/50 06/01 2126 65 164/50 06/01 2012 98.4 65 20 170/72 94 Nasal 3.0L Cannula 06/01 2004 98.4 68 20 170/72 94 Nasal 3.0L Cannula 06/01 1850 94 Nasal 4.0L Cannula 06/01 1600 Nasal 3.0L Cannula Intake & Output 06/02 1600 06/02 0800 06/02 0000 Intake Total 600 Output Total 350 550 675 Balance 250 -550 -675 Intake, IV 150 Intake, Oral 450 Number 1 Bowel Movements Output, Urine 350 550 675 Patient 203 lb Weight Physical Exam General Appearance: Alert, Oriented X3, Cooperative, No Acute Distress Skin: No Rashes, No Breakdown, No Significant Lesion Skin Temp/Moisture Exam: Warm/Dry Sepsis Skin Exam (color): Normal for Ethnicity Cardiovascular: Regular Rate, Normal S1, Normal S2, No Murmurs Lungs: Clear to Auscultation, Normal Air Movement Abdomen: Normal Bowel Sounds, Soft Extremities: No Clubbing, No Cyanosis, Normal Pulses Current Medications: Current Medications Sig/Duong Start time Last Medication Dose Route Stop Time Status Admin Acetaminophen 325 MG .STK-MED ONE 06/01 2126 DC PO 06/01 2127 Acetaminophen 325 MG Q6P PRN 05/25 1500 AC 06/01 PO 212 Albuterol Sulfate 3 ML Q4P PRN 05/24 1300 AC 05/29 INH 0309 Amlodipine Besylate 10 MG DAILY 05/24 1133 AC 06/02 PO 0758 Aspirin 81 MG DAILY 05/24 1133 AC 06/02 PO 0758 Cholecalciferol 1,000 IU DAILY 05/24 1133 AC 06/02 PO 0759 Clonidine 0.1 MG BID 06/02 1025 DC PO Doxazosin Mesylate 4 MG DAILY 05/24 1134 AC 06/02 PO 0758 Ferric Sodium 125 MG Q48H 05/29 0900 AC 06/02 Gluconate Complex IV 06/10 0959 0848 Sodium Chloride 100 ML Furosemide 40 MG DAILY 06/02 0900 AC 06/02 PO 0758 Hydralazine HCl 100 MG TID 05/24 1400 AC 06/02 PO 1443 Isosorbide 90 MG DAILY 06/01 0900 AC 06/02 Mononitrate PO 0758 Labetalol HCl 300 MG BID 05/24 1800 AC 06/02 PO 0759 Minoxidil 5 MG DAILY 06/02 1417 AC PO Multivitamins 1 TAB DAILY 05/24 1136 AC 06/02 Therapeutic PO 0759 Polyethylene Glycol 17 GM DAILY 05/27 1401 AC 06/02 PO 0759 Pravastatin Sodium 20 MG 1700 05/24 1700 AC 06/01 PO 1818 Senna/Docusate Sodium 1 TAB BID PRN 05/27 1415 AC 05/27 PO 1426 Sevelamer Carbonate 800 MG WM 05/24 1200 AC 06/02 PO 1220 Spironolactone 12.5 MG DAILY 05/24 1137 AC 06/02 PO 0757 Vitamin E 200 IU DAILY 05/24 1138 AC 06/02 PO 0759 Last 24 Hrs of Lab/Ray Results Last 24 Hrs of Labs/Mics: Laboratory Tests 06/02/18 0637: Anion Gap 13, Estimated GFR 16 L, BUN/Creatinine Ratio 15.4, CBC w Diff NO MAN DIFF REQ, RBC 2.55 L, MCV 92.9, MCH 29.7, MCHC 32.0 L, RDW 15.4 H, MPV 9.6, Gran % 72.1, Lymphocytes % 14.1 L, Monocytes % 8.5, Eosinophils % 4.6, Basophils % 0.7, Absolute Granulocytes 5.6, Absolute Lymphocytes 1.1 L, Absolute Monocytes 0.7 H, Absolute Eosinophils 0.4, Absolute Basophils 0.1 06/01/182214: Anion Gap 11, Estimated GFR 17 L, BUN/Creatinine Ratio 17.0, Calcium 8.7, Magnesium 2.3, Troponin I 0.03 Assessment/Plan Assessment: This is a 77-year-old female with a past medical history of CKD stage IV, anemia , hypertension, CHF, hyperlipidemia, chronic venous insufficiency, that comes in to see us for 2 weeks of worsening dyspnea at rest and exertion, lower extremity edema, mild left chest pressure worse on exertion, and hypertension on BP log book. Her blood pressure was recently increased from 5 mg to 10 mg but she has continued to have high blood pressures for the past month, sometimes in the low 200s. She is usually on 40 mg of Lasix daily but has continued to have lower extremity edema and complains now of orthopnea. Her last echocardiogram showed stage I diastolic dysfunction but preserved ejection fraction. On physical exam , the patient is using her accessory muscles of breathing and notes worsening shortness of breath when walking to the bathroom. In the ED, her vitals showed temperature 98.6, heart rate 111, respiratory rate 20, blood pressure 211/100 which decreased to 172/74 with 10 mg hydralazine push. Oxygen saturation at admission was 85% on room air which increased to 94% on 2 L and with IV Lasix 80 mg. On the floors, patient had a repeat blood pressure done which showed 240/100 in the left arm and 220/100 in the right arm. Her labs showed anemia with a hemoglobin of 8.6 which is baseline for her, mild hypernatremia of 146, BUN of 41, creatinine 2.9 which is chronic for her. Troponin was negative, proBNP was 17,800. LFTs were normal. Chest x-ray showed mildly increasing perihilar interstitial prominence concerning for developing congestion. In the ED, the patient was given hydralazine push 10 mg, Lasix 80 mg IV, Tylenol , Nitro-Bid Assessment -Mild chest pressure rule out ACS -Acute hypoxic respiratory failure secondary to CHF exacerbation versus pulmonary embolism versus as yet undiagnosed pulmonary pathology. -Hypertensive urgency -Stage IV CKD - proteinuria likely secondary to diabetic neuropathy and hypertensive nephrosclerosis -Chronic anemia -Mild hypernatremia -righ rib pain Plan - Patient has continued issues with her oxygenation requiring at least 3 L. She has been on BiPAP overnight even though she is on CPAP at home with no follow-up with sleep study for evaluation in some time. She has been to see Dr. Dawn and Bruna Regalado MD in the past but has been lost to follow-up. She was switched from IV Lasix to by mouth yesterday. We will do a repeat chest x-ray today as per cardiology. Patient continues to have a decompensated oxygen level we will do a VQ scan. -Continue Lasix by mouth 40 for now. Patient is on spironolactone 12.5. As per cardio we increased the isosorbide dose as well. -Wean from oxygen and BiPAP as able. We will encourage use of incentive spirometer. -For patient's right rib pain order a rib x-ray unilateral right side which showed subacute healing fractures involving the anterior end of the ninth through 11th ribs on the right with no pneumothorax. -As per cardiac consult the patient was started on labetalol 300 mg twice a day and as per renal, can uptitrate as needed for her blood pressure if SBP greater than 160. We continued her other blood pressure medications hydralazine 100 mg 3 times a day, amlodipine 10. We will hold patient's bystolic which she was receiving before she was admitted. We will hold giving clonidine as this could also drop her heart rates which have been around 65. Instead will give minoxidil 5 mg daily by mouth. -Lower extremity doppler US was negative previously. Over the weekend the patient acutely decompensated respiratory hernandez and her d-dimer was elevated, so we ordered another lower extremity Doppler ultrasound. Of note, we cannot do CTA secondary to patient's renal failure and V/Q scan was not available during the weekend. In the meantime we started the patient on heparin drip. When his lower extremity Doppler returned negative and CBC showed a low blood count the heparin was stopped. 2 units of blood were given. -She has acute on chronic anemia. We have consulted by phone with GI who states that we should do a guaiac on the stools and let them know of any acute changes and blood count. Before heparin, guaiac was done and was negative. Low blood count returned almost within an hour starting heparin which as per Surendra Chou MD, would not be so quick to decrease. Repeat guaiac was negative. We are still unsure of the cause of the drop in hemoglobin. -All troponins and EKGs have been negative for ACS. We did a troponin last night when patient had a 16 beat run of V. tach which was negative. -Daily weights, strict I's and O's, patient has good diuresis on Lasix. The patient was switched from Lasix 40 by mouth to IV this weekend during her acute decompensation. -Echocardiogram showed at least type II diastolic dysfunction with moderate pulmonary hypertension and ejection fraction 60-65% with elevated filling pressures. -TR nebs -Renal is seeing the patient and suggested giving Epogen if her blood pressure stabilizes, 10,000 units prior to discharge. Also IV ferrlicet 125 mg every other day for 8 doses. As per renal we cannot give our RAAS secondary to her renal issues. Patient will receive iron at the infusion center after she is discharged. Patient's creatinine is hovering around 3.5. -Encourage low salt diet -Continue patient's other home medications including tramadol, doxazosin, multivitamin, vitamin E/D. -We have ordered physical therapy as patient has not walked much to get a baseline suggestion of patient's functional status -We will recommend patient follow up with pulmonology outpatient for sleep study CHF diet Patient is full code DVT prophylaxis with Alps and heparin subcu Problem List: 1. Hypertensive urgency 2. Chronic kidney disease 3. CHF (congestive heart failure) Pain Ratin Pain Location: na Pain Goal: Remain pain free Pain Plan: na Tomorrow's Labs & Rationales: rodolfo Yanet Wheatley 06/02/18 1348: Attending MD Review Statement Attending Statement Attending MD Statement: examined this patient, discuss w/resident/PA/RIGGING LOFT REPAIRER, agreed w/resident/PA/RIGGING LOFT REPAIRER, reviewed EMR data (avail), discussed with nursing, discussed with case mgmt Attending Assessment/Plan: Uncontrolled HTN- add clonidine to the current regimen and see if her bp gets better control acute on chronic chf exacerbation. cont po lasix. cardiology following. NITHIN on cpap at home- pt has been not following up with sleep center for years. have set her up to follow up with sleep center for repeat sleep study and for arranging for her supplies. d/w pt the care plan. Case management working on arranging oxygen for the patient.
[2018-06-02 07:52] LABS: ABSOLUTE BASOPHIL COUNT 0.1 /CUMM (0.0-0.2); ABSOLUTE EOSINOPHIL COUNT 0.4 /CUMM (0.0-0.7); ABSOLUTE GRANULOCYTE CT 5.6 /CUMM (1.4-6.5); ABSOLUTE LYMPH COUNT 1.1 /CUMM (1.2-3.4); ABSOLUTE MONOCYTE COUNT 0.7 /CUMM (0.10-0.60); BASOPHIL % 0.7 % (0.0-2.0); EOSINOPHIL % 4.6 % (0-5); GRANULOCYTE % 72.1 % (42.2-75.2); HEMATOCRIT 23.7 % (37-47); MEAN CORPUSCULAR HGB 29.7 PG (27.0-31.0); MEAN CORPUSCULAR VOLUME 92.9 FL (81.0-99.0); MEAN PLATELET VOLUME 9.6 FL (7.4-10.4); PLATELET COUNT 278 /CUMM (130-400); RBC DISTRIBUTION WIDTH 15.4 % (11.5-14.5); RED BLOOD CELL CT 2.55 /CUMM (4.20-5.40); WHITE BLOOD CELL COUNT 7.7 /CUMM (4.8-10.8)
--- NOTE | 2018-06-02 11:54 | PN- Nephrology ---
Assessment/Plan Nephrology Assessment: CKD IV. Cr 3.1 near recent baseline. SOB with CHF better with IV lasix. COntinue same. Neftali Marino MD Suggestion: . Subjective Subjective: Pt well Cr 3.0 stable. SOB over weekend. better with IV lasix Objective Vital Signs and I&Os F NAD VSS Lungs clear Cor RRR Abd soft Ext tr edema Results Pertinent Lab Results: 146 / 104 / 12 / 4.1 30 / 3.1 \
--- NOTE | 2018-06-02 12:14 | PN- Nephrology ---
Assessment/Plan Nephrology Assessment: Doing better from SOB. CHF resolved. episode of Vtach. cardiology to see. Cr down to 2.8 near recent baseline. Neftali Marino MD Suggestion: . Subjective Subjective: Pt feels well. Cr down to 2.8 28 beat V tach last night Await cardiology recommendations Objective Vital Signs and I&Os F NAD 192/94 66 98.7 Lungs clear Cor RRR Abd soft Ext neg edema Results Pertinent Lab Results: 148 / 106 / 43 / 4.1 / 29 / 2.8 Ca 8.7 Mg 2.3
--- NOTE | 2018-06-02 12:32 | PN- Cardiology ---
Subjective Subjective: Denies shortness of breath but still requiring supplemental oxygen. She had a nonsustained wide complex run on telemetry without any associated symptoms at that time. Objective Vital Signs and I&Os Vital Signs Date Time Temp Pulse Resp B/P B/P Pulse O2 O2 Flow FiO2 Mean Ox Delivery Rate 06/02 0757 66 192/94 06/02 0626 98.7 66 22 192/94 97 BIPAP 06/02 0257 38 467 06/02 0033 61 168/75 06/02 0014 61 92 06/02 0000 BIPAP 06/01 2232 98.8 65 24 180/100 93 06/01 2145 63 93 06/01 2126 65 164/50 06/01 2126 65 164/50 06/01 2012 98.4 65 20 170/72 94 Nasal 3.0L Cannula 06/01 2004 98.4 68 20 170/72 94 Nasal 3.0L Cannula 06/01 1850 94 Nasal 4.0L Cannula 06/01 1600 Nasal 3.0L Cannula 06/01 1412 98.1 58 20 148/60 94 Nasal 3.5L Cannula 06/01 1344 18 93 Nasal 4.0L Cannula 06/01 1342 18 87 Room Air 06/01 1246 150/56 Intake & Output 06/02 1600 06/02 0800 06/02 0000 06/01 1600 06/01 0800 06/01 0000 Intake Total 240 120 300 Output Total 550 675 600 500 750 Balance -550 -675 -360 -380 -450 Intake, Oral 240 120 300 Number 1 Bowel Movements Output, Urine 550 675 600 500 750 Patient 203 lb 210 lb Weight Weight Bed scale Measurement Method Physical Exam: General: no apparent distress. Alert. On nasal cannula Eyes: No obvious scleral icterus. HEENT: No jugular venous distention or abnormal jugular venous pulsations. Cardiovascular: Normal intensity S1/S2. Regular Respiratory: Mildly decreased air entry at the bases Abdomen: Soft, nontender with no guarding or rebound tenderness. Musculoskeletal: No clubbing or cyanosis noted; trace lower extremity edema Skin: Stasis changes Neurologic: No gross focal deficits noted. Lymph: No gross lymphadenopathy. Current Medications: Current Medications Sig/Duong Start time Last Medication Dose Route Stop Time Status Admin Acetaminophen 325 MG .STK-MED ONE 06/01 2126 DC PO 06/01 2127 Acetaminophen 325 MG Q6P PRN 05/25 1500 AC 06/01 PO 2127 Albuterol Sulfate 3 ML Q4P PRN 05/24 1300 AC 05/29 INH 0309 Amlodipine Besylate 10 MG DAILY 05/24 1133 AC 06/02 PO 0758 Aspirin 81 MG DAILY 05/24 1133 AC 06/02 PO 0758 Cholecalciferol 1,000 IU DAILY 05/24 1133 AC 06/02 PO 0759 Clonidine 0.1 MG BID 06/02 1025 AC PO Doxazosin Mesylate 4 MG DAILY 05/24 1134 AC 06/02 PO 0758 Ferric Sodium 125 MG Q48H 05/29 0900 AC 06/02 Gluconate Complex IV 06/10 0959 0848 Sodium Chloride 100 ML Furosemide 40 MG DAILY 06/02 0900 AC 06/02 PO 0758 Furosemide 40 MG DAILY 05/29 0900 DC 06/01 IV 0955 Hydralazine HCl 100 MG TID 05/24 1400 AC 06/02 PO 0757 Isosorbide 90 MG DAILY 06/01 0900 AC 06/02 Mononitrate PO 0758 Labetalol HCl 300 MG BID 05/24 1800 AC 06/02 PO 0759 Multivitamins 1 TAB DAILY 05/24 1136 AC 06/02 Therapeutic PO 0759 Polyethylene Glycol 17 GM DAILY 05/27 1401 AC 06/02 PO 0759 Pravastatin Sodium 20 MG 1700 05/24 1700 AC 06/01 PO 1818 Senna/Docusate Sodium 1 TAB BID PRN 05/27 1415 AC 05/27 PO 1426 Sevelamer Carbonate 800 MG WM 05/24 1200 AC 06/02 PO 0757 Spironolactone 12.5 MG DAILY 05/24 1137 AC 06/02 PO 0757 Vitamin E 200 IU DAILY 05/24 1138 AC 06/02 PO 0759 Results Last 48 Hrs of Labs/Mics: Laboratory Tests 06/02/18 0637: Anion Gap 13, Estimated GFR 16 L, BUN/Creatinine Ratio 15.4, CBC w Diff NO MAN DIFF REQ, RBC 2.55 L, MCV 92.9, MCH 29.7, MCHC 32.0 L, RDW 15.4 H, MPV 9.6, Gran % 72.1, Lymphocytes % 14.1 L, Monocytes % 8.5, Eosinophils % 4.6, Basophils % 0.7, Absolute Granulocytes 5.6, Absolute Lymphocytes 1.1 L, Absolute Monocytes 0.7 H, Absolute Eosinophils 0.4, Absolute Basophils 0.1 06/01/18 2215: Anion Gap 11, Estimated GFR 17 L, BUN/Creatinine Ratio 17.0, Calcium 8.7, Magnesium 2.3, Troponin I 0.03 06/01/18 0657: CBC w Diff NO MAN DIFF REQ, RBC 2.55 L, MCV 92.6, MCH 30.4, MCHC 32.9 L, RDW 15.4 H, MPV 9.8, Gran % 68.5, Lymphocytes % 17.1 L, Monocytes % 8.4, Eosinophils % 5.4 H, Basophils % 0.6, Absolute Granulocytes 4.6, Absolute Lymphocytes 1.2, Absolute Monocytes 0.6, Absolute Eosinophils 0.4, Absolute Basophils 0 Recent Imaging Studies: Telemetry tracings were personally reviewed and shows sinus rhythm and sinus bradycardia with a nonsustained wide complex run CXR 05/30 No significant change congestive heart failure since prior chest x-ray this a.m. Assessment/Plan Assessment/Plan 1. Hypertensive urgency 2. Acute on chronic heart failure with preserved ejection fraction 3. Chronic kidney disease 4. History of mild aortic stenosis 5. Sleep apnea 6. Chronic venous insufficiency 7. Hyperlipidemia 8. Chronic anemia s/p 2Units PRBCs 9. Asymptomatic nonsustained wide complex run on telemetry The patient denies active shortness of breath but is still requiring supplemental oxygen. Recommend repeating chest x-ray but she may need to go back on IV Lasix. Blood pressure remains uncontrolled; recommend starting minoxidil 5 mg p.o. daily; would not use clonidine as this may worsen bradycardia; can continue with the labetalol. She will likely need outpatient ischemic testing in the future; monitor for recurrent arrhythmia on telemetry. She may require increased baseline diuretic dosing if no objection from nephrology. Given the refractory hypertension recommend ruling out secondary causes such as renal artery stenosis. If continues to require supplemental oxygen we may need to consider VQ scan. Eder Hager MD [facility] Continue telemetry? Yes
[2018-06-02 14:23] VITALS: BP 178/92
[2018-06-02 21:56] VITALS: BP 130/66
[2018-06-03 06:55] VITALS: BP 142/64
--- NOTE | 2018-06-03 07:34 | PN- Housestaff ---
Cesar DUNN,Katherine 06/03/18 0733: Subjective Follow-up For: chf exacerbation Anemia Hypertensive urgency Subjective: This morning patient has no specific complaints but remains on increased oxygen dose. She received CPAP overnight and this morning is on BiPAP. Her blood pressures in the med specialist were 142/64 but increased to 180 systolic at the time of interview. She is sitting in chair visiting with her friend and communicates that she is worried about her continual low blood count and requirement for oxygen that she did not require prior to arrival in the ED. Review of Systems Constitutional: Reports: no symptoms. Cardiovascular: Reports: no symptoms. Respiratory: Reports: short of breath. Gastrointestinal: Reports: no symptoms. Musculoskeletal: Reports: no symptoms. Neurological/Psychological: Reports: no symptoms. Objective Last 24 Hrs of Vital Signs/I&O Vital Signs Date Time Temp Pulse Resp B/P B/P Pulse O2 O2 Flow FiO2 Mean Ox Delivery Rate 06/03 1212 55 142/80 06/03 1057 94 Nasal 3.0L Cannula 06/03 0911 68 180/82 06/03 0907 68 180/82 06/03 0906 68 180/82 06/03 0906 68 180/82 06/03 0902 68 180/82 06/03 0840 76 93 06/03 0800 Nasal 3.0L Cannula 06/03 0655 98.2 70 18 142/64 97 BIPAP 06/03 0214 71 91 06/03 0000 CPAP 06/02 2156 98.6 65 18 130/66 96 Nasal Cannula 06/02 2150 64 96 06/02 2136 62 178/06/02 2135 62 178/06/02 1848 92 Nasal 4.0L Cannula 06/02 1600 Nasal 4.0L Cannula 06/02 1443 62 178/06/02 1423 98.5 55 20 178/92 95 Nasal 4.0L Cannula 06/02 1301 BIPAP 3.0L 06/02 1248 BIPAP 3.0L Intake & Output 06/03 1600 06/03 0800 06/03 0000 Intake Total Output Total 550 450 Balance -550 -450 Output, Urine 550 450 Patient 205 lb Weight Weight Bed scale Measurement Method Physical Exam General Appearance: Alert, Oriented X3, Cooperative, No Acute Distress HEENT: Atraumatic, PERRLA, EOMI, Mucous Membr. moist/pink Neck: Supple, No JVD Cardiovascular: Regular Rate, Normal S1, Normal S2, No Murmurs Lungs: Clear to Auscultation, Normal Air Movement Abdomen: Normal Bowel Sounds, Soft, No Tenderness Neurological: Normal Speech Extremities: No Clubbing, No Cyanosis, edema in lower ext has decreased Assessment/Plan Assessment: This is a 77-year-old female with a past medical history of CKD stage IV, anemia , hypertension, CHF, hyperlipidemia, chronic venous insufficiency, that comes in to see us for 2 weeks of worsening dyspnea at rest and exertion, lower extremity edema, mild left chest pressure worse on exertion, and hypertension on BP log book. Her blood pressure was recently increased from 5 mg to 10 mg but she has continued to have high blood pressures for the past month, sometimes in the low 200s. She is usually on 40 mg of Lasix daily but has continued to have lower extremity edema and complains now of orthopnea. Her last echocardiogram showed stage I diastolic dysfunction but preserved ejection fraction. On physical exam , the patient is using her accessory muscles of breathing and notes worsening shortness of breath when walking to the bathroom. In the ED, her vitals showed temperature 98.6, heart rate 111, respiratory rate 20, blood pressure 211/100 which decreased to 172/74 with 10 mg hydralazine push. Oxygen saturation at admission was 85% on room air which increased to 94% on 2 L and with IV Lasix 80 mg. On the floors, patient had a repeat blood pressure done which showed 240/100 in the left arm and 220/100 in the right arm. Her labs showed anemia with a hemoglobin of 8.6 which is baseline for her, mild hypernatremia of 146, BUN of 41, creatinine 2.9 which is chronic for her. Troponin was negative, proBNP was 17,800. LFTs were normal. Chest x-ray showed mildly increasing perihilar interstitial prominence concerning for developing congestion. In the ED, the patient was given hydralazine push 10 mg, Lasix 80 mg IV, Tylenol , Nitro-Bid Assessment -Mild chest pressure rule out ACS -Acute hypoxic respiratory failure secondary to CHF exacerbation versus pulmonary embolism versus as yet undiagnosed pulmonary pathology. -Hypertensive urgency -Stage IV CKD - proteinuria likely secondary to diabetic neuropathy and hypertensive nephrosclerosis -Chronic anemia -Mild hypernatremia -righ rib pain Plan - Patient has continued issues with her oxygenation requiring at least 3 L. She has been on BiPAP overnight even though she is on CPAP at home with no follow-up with sleep study for evaluation in some time. She has been to see Dr. Dawn and Bruna Regalado MD in the past but has been lost to follow-up. She was switched from IV Lasix to by mouth yesterday. We will do a repeat chest x-ray today as per cardiology. Patient continues to have a decompensated oxygen level we will do a VQ scan. -Continue Lasix by mouth 40 for now. Patient is on spironolactone 12.5. As per cardio we increased the isosorbide dose as well. We ordered a repeat chest x- ray for this morning which showed interval decrease in her congestion. As per cardiology we will order a noncontrast CT of the chest to elucidate further why patient still has increased oxygen requirement despite being optimized on medical therapy for CHF. -Wean from oxygen and BiPAP as able. We will encourage use of incentive spirometer. -For patient's right rib pain order a rib x-ray unilateral right side which showed subacute healing fractures involving the anterior end of the ninth through 11th ribs on the right with no pneumothorax. -As per cardiac consult the patient was started on labetalol 300 mg twice a day and as per renal, can uptitrate as needed for her blood pressure if SBP greater than 160. We continued her other blood pressure medications hydralazine 100 mg 3 times a day, amlodipine 10. We will hold patient's bystolic which she was receiving before she was admitted. We will hold giving clonidine as this could also drop her heart rates which have been around 65. Instead will continue minoxidil 5 mg daily by mouth. -Lower extremity doppler US was negative previously. Over the weekend the patient acutely decompensated respiratory hernandez and her d-dimer was elevated, so we ordered another lower extremity Doppler ultrasound. Of note, we cannot do CTA secondary to patient's renal failure and V/Q scan was not available during the weekend. In the meantime we started the patient on heparin drip. When his lower extremity Doppler returned negative and CBC showed a low blood count the heparin was stopped. 2 units of blood were given. -She has acute on chronic anemia. We have consulted by phone with GI who states that we should do a guaiac on the stools and let them know of any acute changes and blood count. Before heparin, guaiac was done and was negative. Low blood count returned almost within an hour starting heparin which as per Surendra Chou MD, would not be so quick to decrease. Repeat guaiac was negative. We are still unsure of the cause of the drop in hemoglobin. We will add Epogen 10,000 units weekly to her medication regimen today. We will recommend that in a couple weeks she has her iron stores rechecked. -All troponins and EKGs have been negative for ACS. We did a troponin last night when patient had a 16 beat run of V. tach which was negative. -Daily weights, strict I's and O's, patient has good diuresis on Lasix. The patient was switched from Lasix 40 by mouth to IV this weekend during her acute decompensation. -Echocardiogram showed at least type II diastolic dysfunction with moderate pulmonary hypertension and ejection fraction 60-65% with elevated filling pressures. -TR nebs -Renal is seeing the patient and suggested giving Epogen if her blood pressure stabilizes, 10,000 units prior to discharge. Also IV ferrlicet 125 mg every other day for 8 doses. As per renal we cannot give our RAAS secondary to her renal issues. Patient will receive iron at the infusion center after she is discharged. Patient's creatinine is hovering around 3.5. -Encourage low salt diet -Continue patient's other home medications including tramadol, doxazosin, multivitamin, vitamin E/D. -We have ordered physical therapy as patient has not walked much to get a baseline suggestion of patient's functional status -We will recommend patient follow up with pulmonology outpatient for sleep study CHF diet Patient is full code DVT prophylaxis with Alps and heparin subcu Problem List: 1. Hypertensive urgency 2. Chronic kidney disease 3. CHF (congestive heart failure) Pain Ratin Pain Location: na Pain Goal: Remain pain free Pain Plan: na Tomorrow's Labs & Rationales: ordolfo WheatleySylvainglen 06/03/18 1305: Attending Review Statement Attending Statement Attending Statement: examined this patient, discuss w/resident/PA/BEHAVIORAL HEALTH CARE COORDINATOR, agreed w/resident/PA/BEHAVIORAL HEALTH CARE COORDINATOR, reviewed EMR data (avail), discussed with nursing, discussed with case mgmt Attending Assessment/Plan: Uncontrolled HTN- Minoxidil added per gabriela yesterday. cont on current meds. bp better today . acute on chronic chf exacerbation. cont po lasix. cardiology following. will get CT chest without contrast today to see if there is anyother etiology for her hypoxia. NITHIN on cpap at home- pt has been not following up with sleep center for years. have set her up to follow up with sleep center for repeat sleep study and for arranging for her supplies. Anemia in pt with CKD- dw nephro- pt already getting iv iron infusions , will be started on epogen based on their recommendations. d/w pt the care plan.
[2018-06-03 08:10] LABS: ABSOLUTE BASOPHIL COUNT 0 /CUMM (0.0-0.2); ABSOLUTE EOSINOPHIL COUNT 0.3 /CUMM (0.0-0.7); ABSOLUTE MONOCYTE COUNT 0.7 /CUMM (0.10-0.60); BASOPHIL % 0.5 % (0.0-2.0); EOSINOPHIL % 4.1 % (0-5); GRANULOCYTE % 74.7 % (42.2-75.2); HEMATOCRIT 23.9 % (37-47); MEAN CORPUSCULAR HGB 30.3 PG (27.0-31.0); MEAN CORPUSCULAR HGB CONC 32.5 G/DL (33.0-37.0); MEAN PLATELET VOLUME 9.4 FL (7.4-10.4); PLATELET COUNT 264 /CUMM (130-400); RBC DISTRIBUTION WIDTH 15.7 % (11.5-14.5); RED BLOOD CELL CT 2.57 /CUMM (4.20-5.40)
[2018-06-03 09:02] VITALS: BP 180/82
--- NOTE | 2018-06-03 09:47 | RADIOLOGY REPORT ---
EXAMINATION: XR PORTABLE CHEST CLINICAL INFORMATION: Pulmonary congestion. COMPARISON: Chest done on 05/30/2018. TECHNIQUE: Portable upright 80 degree frontal view of the chest was obtained. FINDINGS: Mild pulmonary venous congestion is present, unchanged. Superimposed nonspecific bibasilar and bilateral perihilar airspace disease is noted, and shows interval improvement since the prior study. The cardiomediastinal silhouette remains moderately enlarged. There is no pleural effusion or pneumothorax present. The visualized upper abdomen is unremarkable. IMPRESSION: Evidence of interval improved aeration at both mid to lower lung chahal since the prior study, which may represent resolving pulmonary edema, infection or a combination thereof.
--- NOTE | 2018-06-03 10:04 | PN- Cardiology ---
Subjective Subjective: Patient claims to feel better. She slept with the CPAP last night. She is still on oxygen. Objective Vital Signs and I&Os Vital Signs Date Time Temp Pulse Resp B/P B/P Pulse O2 O2 Flow FiO2 Mean Ox Delivery Rate 06/03 0911 68 180/82 06/03 0907 68 180/82 06/03 0906 68 180/82 06/03 0906 68 180/82 06/03 0902 68 180/82 06/03 0800 Nasal 3.0L Cannula 06/03 0655 98.2 70 18 142/64 97 BIPAP 06/03 0214 71 91 06/03 0000 CPAP 06/02 2156 98.6 65 18 130/66 96 Nasal Cannula 06/02 2150 64 96 06/02 2136 62 178/92 06/02 2135 62 178/92 06/02 1848 92 Nasal 4.0L Cannula 06/02 1600 Nasal 4.0L Cannula 06/02 1443 62 178/92 06/02 1423 98.5 55 20 178/ 95 Nasal 4.0L Cannula 06/02 1301 BIPAP 3.0L 06/02 1248 BIPAP 3.0L 06/02 1210 45 134/82 Intake & Output 06/03 1600 06/03 0800 06/03 0000 06/02 1600 06/02 0800 06/02 0000 Intake Total 600 Output Total 550 450 350 550 675 Balance -550 -450 250 -550 -675 Intake, IV 150 Intake, Oral 450 Number 1 Bowel Movements Output, Urine 550 450 350 550 675 Patient 205 lb 203 lb Weight Weight Bed scale Measurement Method Physical Exam: On physical exam she was sitting in a chair fairly comfortable Head normocephalic atraumatic Eyes sclera anicteric conjunctiva showed no pallor extraocular muscles were normal Neck no jugular venous distention no thyroid masses no palpable nodes Chest lungs were clear except for fine crackles bilaterally Heart regular rhythm grade 1/6 to 2/6 systolic murmur murmur Abdomen soft no organomegaly bowel sounds normal Extremities edema much improved. Neurological no gross motor or sensory deficits. Current Medications: Current Medications Sig/Duong Start time Last Medication Dose Route Stop Time Status Admin Acetaminophen 325 MG Q6P PRN 05/25 1500 AC 06/01 PO 2127 Albuterol Sulfate 3 ML Q4P PRN 05/24 1300 AC 05/29 INH 0309 Amlodipine Besylate 10 MG DAILY 05/24 1133 AC 06/03 PO 0911 Aspirin 81 MG DAILY 05/24 1133 AC 06/03 PO 0906 Cholecalciferol 1,000 IU DAILY 05/24 1133 AC 06/03 PO 0907 Clonidine 0.1 MG BID 06/02 1025 DC PO Doxazosin Mesylate 4 MG DAILY 05/24 1134 AC 06/03 PO 0906 Ferric Sodium 125 MG Q48H 05/29 0900 AC 06/02 Gluconate Complex IV 06/10 0959 0848 Sodium Chloride 100 ML Furosemide 40 MG DAILY 06/02 0900 AC 06/03 PO 0906 Hydralazine HCl 100 MG TID 05/24 1400 AC 06/03 PO 0906 Isosorbide 90 MG DAILY 06/01 0900 AC 06/03 Mononitrate PO 0906 Labetalol HCl 300 MG BID 05/24 1800 AC 06/03 PO 0907 Minoxidil 5 MG DAILY 06/02 1417 AC 06/03 PO 0906 Multivitamins 1 TAB DAILY 05/24 1136 AC 06/03 Therapeutic PO 0907 Polyethylene Glycol 17 GM DAILY 05/27 1401 AC 06/03 PO 0906 Pravastatin Sodium 20 MG 1700 05/24 1700 AC 06/02 PO 1708 Senna/Docusate Sodium 1 TAB BID PRN 05/27 1415 AC 05/27 PO 1426 Sevelamer Carbonate 800 MG WM 05/24 1200 AC 06/03 PO 0906 Spironolactone 12.5 MG DAILY 05/24 1137 AC 06/03 PO 0905 Vitamin E 200 IU DAILY 05/24 1138 AC 06/03 PO 0906 Results Last 48 Hrs of Labs/Mics: Laboratory Tests 06/03/18 0650: Anion Gap 10, Estimated GFR 16 L, BUN/Creatinine Ratio 14.5, CBC w Diff NO MAN DIFF REQ, RBC 2.57 L, MCV 93.0, MCH 30.3, MCHC 32.5 L, RDW 15.7 H, MPV 9.4, Gran % 74.7, Lymphocytes % 12.1 L, Monocytes % 8.6, Eosinophils % 4.1, Basophils % 0.5, Absolute Granulocytes 6.0, Absolute Lymphocytes 1.0 L, Absolute Monocytes 0.7 H, Absolute Eosinophils 0.3, Absolute Basophils 0 06/02/18 0637: Anion Gap 13, Estimated GFR 16 L, BUN/Creatinine Ratio 15.4, CBC w Diff NO MAN DIFF REQ, RBC 2.55 L, MCV 92.9, MCH 29.7, MCHC 32.0 L, RDW 15.4 H, MPV 9.6, Gran % 72.1, Lymphocytes % 14.1 L, Monocytes % 8.5, Eosinophils % 4.6, Basophils % 0.7, Absolute Granulocytes 5.6, Absolute Lymphocytes 1.1 L, Absolute Monocytes 0.7 H, Absolute Eosinophils 0.4, Absolute Basophils 0.1 06/01/182214: Anion Gap 11, Estimated GFR 17 L, BUN/Creatinine Ratio 17.0, Calcium 8.7, Magnesium 2.3, Troponin I 0.03 Assessment/Plan Assessment/Plan In summary this 77 year old patient has the follow ing problems 1. Hypertensive urgency 2. Acute on chronic heart failure with preserved ejection fraction 3. Chronic kidney disease 4. History of mild aortic stenosis 5. Sleep apnea 6. Chronic venous insufficiency 7. Hyperlipidemia 8. Chronic anemia s/p 2Units PRBCs 9. Asymptomatic nonsustained wide complex run on telemetry Etiology of hypoxemia has not been clarified. May not only be related to congestive heart failure. I will suggest a CT scan noncontrast of the chest. Current Lasix dose may be increased if congestive heart failure is substantiated on CT scan. Etiology of her hypertension may be nephrosclerosis or renal artery stenosis. Continue telemetry? Yes
--- NOTE | 2018-06-03 10:44 | PN- Nephrology ---
Assessment/Plan Nephrology Assessment: CKD IV. Cr stable . Anemic. Would start Epogen 10,000 u SQ weekly. Plans for CT chest noted. Neftali Marino MD. Suggestion: . Subjective Subjective: PT comfortable. Fatigued. Anemic s/p 2 u PRBC Objective Vital Signs and I&Os F NAD 180/82 68 98.2 Lungs clear Cor RRR Abd soft Ext tr edema Results Pertinent Lab Results: Laboratory Tests 06/03 06/02 0650 0637 Chemistry Sodium (137 - 145 mmol/L) 147 H 148 H Potassium (3.5 - 5.1 mmol/L) 4.5 4.1 Chloride (98 - 107 mmol/L) 106 106 Carbon Dioxide (22 - 30 mmol/L) 30 29 Anion Gap (5 - 16) 10 13 BUN (7 - 17 mg/dL) 42 H 43 H Creatinine (0.5 - 1.0 mg/dL) 2.9 H 2.8 H Estimated GFR (>60 ml/min) 16 L 16 L BUN/Creatinine Ratio (7 - 25 %) 14.5 15.4 Hematology CBC w Diff NO MAN DIFF REQ NO MAN DIFF REQ WBC (4.8 - 10.8 /CUMM) 8.0 7.7 RBC (4.20 - 5.40 /CUMM) 2.57 L 2.55 L Hgb (12.0 - 16.0 G/DL) 7.8 L 7.6 L Hct (37 - 47 %) 23.9 L 23.7 L MCV (81.0 - 99.0 FL) 93.0 92.9 MCH (27.0 - 31.0 PG) 30.3 29.7 MCHC (33.0 - 37.0 G/DL) 32.5 L 32.0 L RDW (11.5 - 14.5 %) 15.7 H 15.4 H Plt Count (130 - 400 /CUMM) 264 278 MPV (7.4 - 10.4 FL) 9.4 9.6 Gran % (42.2 - 75.2 %) 74.7 72.1 Lymphocytes % (20.5 - 51.1 %) 12.1 L 14.1 L Monocytes % (1.7 - 9.3 %) 8.6 8.5 Eosinophils % (0 - 5 %) 4.1 4.6 Basophils % (0.0 - 2.0 %) 0.5 0.7 Absolute Granulocytes (1.4 - 6.5 /CUMM) 6.0 5.6 Absolute Lymphocytes (1.2 - 3.4 /CUMM) 1.0 L 1.1 L Absolute Monocytes (0.10 - 0.60 /CUMM) 0.7 H 0.7 H Absolute Eosinophils (0.0 - 0.7 /CUMM) 0.3 0.4 Absolute Basophils (0.0 - 0.2 /CUMM) 0 0.1 06/01 06/01 2215 0657 Chemistry Sodium (137 - 145 mmol/L) 143 Potassium (3.5 - 5.1 mmol/L) 4.4 Chloride (98 - 107 mmol/L) 105 Carbon Dioxide (22 - 30 mmol/L) 27 Anion Gap (5 - 16) 11 BUN (7 - 17 mg/dL) 46 H Creatinine (0.5 - 1.0 mg/dL) 2.7 H Estimated GFR (>60 ml/min) 17 L BUN/Creatinine Ratio (7 - 25 %) 17.0 Calcium (8.4 - 10.2 mg/dL) 8.7 Magnesium (1.6 - 2.3 mg/dL) 2.3 Troponin I (< 0.11 ng/ml) 0.03 Hematology CBC w Diff NO MAN DIFF REQ WBC (4.8 - 10.8 /CUMM) 6.8 RBC (4.20 - 5.40 /CUMM) 2.55 L Hgb (12.0 - 16.0 G/DL) 7.8 L Hct (37 - 47 %) 23.6 L MCV (81.0 - 99.0 FL) 92.6 MCH (27.0 - 31.0 PG) 30.4 MCHC (33.0 - 37.0 G/DL) 32.9 L RDW (11.5 - 14.5 %) 15.4 H Plt Count (130 - 400 /CUMM) 246 MPV (7.4 - 10.4 FL) 9.8 Gran % (42.2 - 75.2 %) 68.5 Lymphocytes % (20.5 - 51.1 %) 17.1 L Monocytes % (1.7 - 9.3 %) 8.4 Eosinophils % (0 - 5 %) 5.4 H Basophils % (0.0 - 2.0 %) 0.6 Absolute Granulocytes (1.4 - 6.5 /CUMM) 4.6 Absolute Lymphocytes (1.2 - 3.4 /CUMM) 1.2 Absolute Monocytes (0.10 - 0.60 /CUMM) 0.6 Absolute Eosinophils (0.0 - 0.7 /CUMM) 0.4 Absolute Basophils (0.0 - 0.2 /CUMM) 0
[2018-06-03 12:12] VITALS: BP 142/80
--- NOTE | 2018-06-03 12:45 | CT SCAN REPORT ---
EXAMINATION: CT CHEST WITHOUT CONTRAST CLINICAL INFORMATION: Continued increased oxygen requirement. History of CHF. COMPARISON: CT abdomen pelvis 05/25/2017, CT chest 04/28/2017 and 05/13/2012. TECHNIQUE: Multidetector volumetric CT imaging of the chest was done. Axial MIP volume rendering provided. Sagittal and coronal reformatted images were obtained. DLP: 425.73 mGy-cm FINDINGS: EVENT PROMOTIONS COORDINATOR: Cardiomegaly. Linear markings at the lung bases. Blunting of the right costophrenic angle. Probable small right pleural effusion. Vascular calcifications. LUNGS: Small bilateral pleural effusions. There is adjacent consolidation of the dependent portions of the lungs adjacent to the pleural effusions. Mosaic attenuation of the lung parenchyma with geographic areas of ground-glass opacity, most concentrated along the posterior aspects of the upper and lower lobes. Linear atelectasis or scarring within the lingula. Minimal consolidation of the right middle lobe medial segment against the mediastinal contour, most likely due to atelectasis. MEDIASTINUM: Cardiomegaly. Trace pericardial effusion. Extensive coronary artery calcifications. Calcifications of the aortic valve, mitral annulus and thoracic aorta. Tortuosity and uncoiling of the thoracic aorta. Enlarged mediastinal lymph nodes, for example there is a 1.5 x 1.7 cm precarinal lymph node seen which maintains a normal fatty hilum, similar across the prior studies. Additional scattered small lymph nodes are seen. No bulky mediastinal or hilar lymphadenopathy. Limited views of the thyroid are unremarkable. The trachea and central airways are patent. PLEURA: Small bilateral pleural effusions. AXILLAE: Increased size of a right axillary lymph node measuring 1.2 cm in short axis. Other scattered axillary lymph nodes appear similar to prior studies. UPPER ABDOMEN: Stable 0.9 cm hypodensity within the right hepatic lobe when compared to a prior CT of the abdomen and pelvis dated 11/14/2013. 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 OSSEOUS STRUCTURES: No acute or suspicious osseous abnormality. IMPRESSION: 1. The constellation of findings is most consistent with congestive heart failure. Whether a superimposed infectious process is within the consolidated portion of the lungs must be based upon clinical assessment. 2. Stable mediastinal lymphadenopathy. 3. Abnormally enlarged right axillary lymph node, increased since the prior studies. This is of uncertain etiology and appropriate clinical assessment is recommended. 4. 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 There is diffuse ectasia and tortuosity of the thoracic aorta.
[2018-06-03 14:12] VITALS: BP 124/60
[2018-06-03 20:40] VITALS: BP 146/56
[2018-06-03 22:25] VITALS: BP 162/82
[2018-06-04 06:28] VITALS: BP 168/70
--- NOTE | 2018-06-04 07:18 | PN- Housestaff ---
Cesar DUNN,Katherine 06/04/18 0718: Subjective Follow-up For: CHF exacerbation Hypertensive urgency AK and CKD Subjective: Patient continues to be in low spirits at the fact that she is still here and not getting noticeably better. Her morning blood pressure is 160/70 and decreases when she is given her medications. She has been having low urine output of about 375 cc for 2 shifts. She notes that she has not been drinking very much. She has no complaints other than a right arm bump medial to where her IV was as well as a similar bump on her hand. Both are painful. Review of Systems Constitutional: Reports: no symptoms. Cardiovascular: Reports: no symptoms. Respiratory: Reports: no symptoms. Gastrointestinal: Reports: no symptoms. Musculoskeletal: Reports: muscle pain. Skin: Reports: see HPI. Objective Last 24 Hrs of Vital Signs/I&O Vital Signs Date Time Temp Pulse Resp B/P B/P Pulse O2 O2 Flow FiO2 Mean Ox Delivery Rate 06/04 1450 77 124/48 06/04 1439 98.7 77 22 124/48 94 Nasal 4.0L Cannula 06/04 1008 58 156/64 06/04 1007 58 156/64 06/04 1006 58 156/64 06/04 0815 94 Nasal 3.0L Cannula 06/04 0815 94 06/04 0650 72 168/72 06/04 0628 98.6 74 22 168/70 94 Nasal Cannula 06/04 0136 71 95 06/04 0000 Nasal 3.0L Cannula 06/03 2225 99.1 73 24 162/82 95 06/03 2224 94 CPAP 3.0L 06/03 2214 63 94 06/03 2043 63 146/56 06/03 2042 63 146/56 06/03 2040 63 146/56 Intake & Output 06/04 1600 06/04 0800 06/04 0000 Intake Total 220 360 Output Total 200 175 Balance 20 185 Intake, Oral 220 360 Number 2 Bowel Movements Output, Urine 200 175 Patient 202 lb Weight Physical Exam General Appearance: Alert, Oriented X3, Cooperative, No Acute Distress Skin: PATIENT HAS RIGHT ARM 4X2 CM LESION, RAISED AND PAINFUL MEDIAL TO REMOVED iv SITE, began when IV was removed. not warm or red. preserved pulses ans sensation distallyl. Skin Temp/Moisture Exam: Warm/Dry Sepsis Skin Exam (color): Normal for Ethnicity Cardiovascular: Regular Rate, Normal S1, Normal S2, No Murmurs Lungs: lower lung crackles Abdomen: Normal Bowel Sounds, Soft, No Tenderness Extremities: No Clubbing, No Cyanosis, decreased edema Vascular: Normal Pulses, Pulses Symmetrical Current Medications: Current Medications Sig/Duong Start time Last Medication Dose Route Stop Time Status Admin Acetaminophen 325 MG Q6P PRN 05/25 1500 AC 06/01 PO 2127 Albuterol Sulfate 3 ML Q4P PRN 05/24 1300 AC 05/29 INH 0309 Amlodipine Besylate 10 MG DAILY 05/24 1133 AC 06/04 PO 1007 Aspirin 81 MG DAILY 05/24 1133 AC 06/04 PO 1006 Cholecalciferol 1,000 IU DAILY 05/24 1133 AC 06/04 PO 1008 Doxazosin Mesylate 4 MG DAILY 05/24 1134 AC 06/04 PO 1007 Epoetin Ld 10,000 UNITS ONCE A WEEK 06/03 1215 AC 06/03 SC 1300 Ferric Sodium 125 MG Q48H 05/29 0900 AC 06/04 Gluconate Complex IV 06/10 0959 1009 Sodium Chloride 100 ML Furosemide 40 MG DAILY 06/02 0900 AC 06/04 PO 1007 Hydralazine HCl 100 MG TID 05/24 1400 AC 06/04 PO 1450 Isosorbide 90 MG DAILY 06/01 0900 AC 06/04 Mononitrate PO 1006 Labetalol HCl 300 MG BID 05/24 1800 AC 06/04 PO 1008 Minoxidil 5 MG DAILY 06/02 1417 AC 06/04 PO 1007 Multivitamins 1 TAB DAILY 05/24 1136 AC 06/04 Therapeutic PO 1007 Polyethylene Glycol 17 GM DAILY 05/27 1401 AC 06/04 PO 1009 Pravastatin Sodium 20 MG 1700 05/24 1700 AC 06/03 PO 1838 Senna/Docusate Sodium 1 TAB BID PRN 05/27 1415 AC 05/27 PO 1426 Sevelamer Carbonate 800 MG WM 05/24 1200 AC 06/04 PO 1230 Spironolactone 12.5 MG DAILY 05/24 1137 AC 06/04 PO 1009 Vitamin E 200 IU DAILY 05/24 1138 AC 06/04 PO 1008 Last 24 Hrs of Lab/Ray Results Last 24 Hrs of Labs/Mics: Laboratory Tests 06/04/18 0647: Anion Gap 10, Estimated GFR 13 L, BUN/Creatinine Ratio 14.6, CBC w Diff NO MAN DIFF REQ, RBC 2.48 L, MCV 92.9, MCH 29.8, MCHC 32.0 L, RDW 15.1 H, MPV 9.4, Gran % 71.1, Lymphocytes % 17.0 L, Monocytes % 7.2, Eosinophils % 4.2, Basophils % 0.5, Absolute Granulocytes 5.3, Absolute Lymphocytes 1.3, Absolute Monocytes 0.5, Absolute Eosinophils 0.3, Absolute Basophils 0 Assessment/Plan Assessment: This is a 77-year-old female with a past medical history of CKD stage IV, anemia , hypertension, CHF, hyperlipidemia, chronic venous insufficiency, that comes in to see us for 2 weeks of worsening dyspnea at rest and exertion, lower extremity edema, mild left chest pressure worse on exertion, and hypertension on BP log book. Her blood pressure was recently increased from 5 mg to 10 mg but she has continued to have high blood pressures for the past month, sometimes in the low 200s. She is usually on 40 mg of Lasix daily but has continued to have lower extremity edema and complains now of orthopnea. Her last echocardiogram showed stage I diastolic dysfunction but preserved ejection fraction. On physical exam , the patient is using her accessory muscles of breathing and notes worsening shortness of breath when walking to the bathroom. In the ED, her vitals showed temperature 98.6, heart rate 111, respiratory rate 20, blood pressure 211/100 which decreased to 172/74 with 10 mg hydralazine push. Oxygen saturation at admission was 85% on room air which increased to 94% on 2 L and with IV Lasix 80 mg. On the floors, patient had a repeat blood pressure done which showed 240/100 in the left arm and 220/100 in the right arm. Her labs showed anemia with a hemoglobin of 8.6 which is baseline for her, mild hypernatremia of 146, BUN of 41, creatinine 2.9 which is chronic for her. Troponin was negative, proBNP was 17,800. LFTs were normal. Chest x-ray showed mildly increasing perihilar interstitial prominence concerning for developing congestion. In the ED, the patient was given hydralazine push 10 mg, Lasix 80 mg IV, Tylenol , Nitro-Bid Assessment -Mild chest pressure rule out ACS -Acute hypoxic respiratory failure secondary to CHF exacerbation versus pulmonary embolism versus as yet undiagnosed pulmonary pathology. -Hypertensive urgency -Stage IV CKD - proteinuria likely secondary to diabetic neuropathy and hypertensive nephrosclerosis -Chronic anemia -Mild hypernatremia -righ rib pain Plan - Patient has continued issues with her oxygenation requiring at least 3 L. She has been on BiPAP overnight even though she is on CPAP at home with no follow-up with sleep study for evaluation in some time. She has been to see Dr. Dawn and Bruna Regalado MD in the past but has been lost to follow-up. She was switched from IV Lasix to by mouth yesterday. We will do a repeat chest x-ray today as per cardiology. If patient continues to have a decompensated oxygen level we will do a VQ scan. -Continue Lasix by mouth 40 for now. Patient is on spironolactone 12.5. As per cardio we increased the isosorbide dose as well. We ordered a repeat chest x- ray which showed interval decrease in her congestion. As per cardiology we ordered a noncontrast CT of the chest to elucidate further why the patient has increased oxygen requirement despite being optimized on medical therapy for CHF. Nothing else was found other than evidence of CHF. The patient has had little p.o. liquid intake and has had a bump in creatinine on Lasix. As patient continues to have increased oxygen dependence we will put in an official fluid restriction of 1500 cc per day. Of note on his CT chest, patient was found to have a dilated aorta 4.2 cm gradually increasing which will need to be followed up on outpatient. -Wean from oxygen and BiPAP as able. We will encourage use of incentive spirometer. -For patient's right rib pain order a rib x-ray unilateral right side which showed subacute healing fractures involving the anterior end of the ninth through 11th ribs on the right with no pneumothorax. -As per cardiac consult the patient was started on labetalol 300 mg twice a day and as per renal, can uptitrate as needed for her blood pressure if SBP greater than 160. We continued her other blood pressure medications hydralazine 100 mg 3 times a day, amlodipine 10. We will hold patient's bystolic which she was receiving before she was admitted. We will hold giving clonidine as this could also drop her heart rates which have been around 65. We will continue minoxidil 5 mg daily by mouth. -Lower extremity doppler US was negative previously. Over the weekend the patient acutely decompensated respiratory hernandez and her d-dimer was elevated, so we ordered another lower extremity Doppler ultrasound. Of note, we cannot do CTA secondary to patient's renal failure and V/Q scan was not available during the weekend. In the meantime we started the patient on heparin drip. When his lower extremity Doppler returned negative and CBC showed a low blood count the heparin was stopped. 2 units of blood were given. -She has acute on chronic anemia. We have consulted by phone with GI who states that we should do a guaiac on the stools and let them know of any acute changes and blood count. Before heparin, guaiac was done and was negative. Low blood count returned almost within an hour starting heparin which as per Surendra Chou MD, would not be so quick to decrease. Repeat guaiac was negative. We are still unsure of the cause of the drop in hemoglobin. We will add Epogen 10,000 units weekly to her medication regimen today. We will recommend that in a couple weeks she has her iron stores rechecked. -All troponins and EKGs have been negative for ACS. We did a troponin last night when patient had a 16 beat run of V. tach which was negative. -Daily weights, strict I's and O's, patient has good diuresis on Lasix. The patient was switched from Lasix 40 by mouth to IV this weekend during her acute decompensation but is now on 40 mg Lasix p.o. daily which we will continue. -Echocardiogram showed at least type II diastolic dysfunction with moderate pulmonary hypertension and ejection fraction 60-65% with elevated filling pressures. -PSYCHIATRIC nebs -Renal is seeing the patient and suggested giving Epogen if her blood pressure stabilizes which it has, 10,000 units were begun yesterday. Also IV ferrlicet 125 mg every other day for 8 doses, patient is on her last dose. We cannot give our RAAS secondary to her renal issues. Patient will receive iron at the infusion center after she is discharged. Patient's creatinine is hovering around 3.5. -Encourage low salt diet -Continue patient's other home medications including tramadol, doxazosin, multivitamin, vitamin E/D. -Encourage patient to ambulate -We will recommend patient follow up with pulmonology outpatient for sleep study -We will keep an eye on patient's right arm and left hand lesions which may be developing thrombophlebitis. If they appear red or warm tomorrow we will do ultrasound. CHF diet Patient is full code DVT prophylaxis with Alps and heparin subcu Problem List: 1. Hypertensive urgency 2. Chronic kidney disease 3. CHF (congestive heart failure) Pain Ratin Pain Location: right arm lesion Pain Goal: Remain pain free Pain Plan: prn Tomorrow's Labs & Rationales: Yanet Leon 06/04/18 1225: Attending MD Review Statement Attending Statement Attending MD Statement: examined this patient, discuss w/resident/PA/RELIGIOUS LEADER, agreed w/resident/PA/RELIGIOUS LEADER, reviewed EMR data (avail), discussed with nursing, discussed with case mgmt Attending Assessment/Plan: 77-year-old female with a past medical history of CKD stage IV, anemia, hypertension, CHF, hyperlipidemia, chronic venous insufficiency, that comes in to see us for 2 weeks of worsening dyspnea at rest and exertion, lower extremity edema, mild left chest pressure worse on exertion, and hypertension on BP log book. Uncontrolled HTN- Minoxidil added per cadio on . cont on current meds. bp better today . acute on chronic chf exacerbation. cont po lasix. cardiology following. CT chest without contrast done on shows-The constellation of findings is most consistent with congestive heart failure. will d/w cardio and see if they would switch her back to iv lasix or add another agent like metolazone. will put her on strict fluid restriction of 1500ml/day. NITHIN on cpap at home- pt has been not following up with sleep center for years. have set her up to follow up with sleep center for repeat sleep study and for arranging for her supplies. Anemia in pt with CKD- dw nephro- pt already getting iv iron infusions , got one dose of epogen based on their recommendations. will need f/u with nephro post dc d/w pt the care plan.
[2018-06-04 08:24] LABS: ABSOLUTE BASOPHIL COUNT 0 /CUMM (0.0-0.2); ABSOLUTE EOSINOPHIL COUNT 0.3 /CUMM (0.0-0.7); ABSOLUTE GRANULOCYTE CT 5.3 /CUMM (1.4-6.5); ABSOLUTE LYMPH COUNT 1.3 /CUMM (1.2-3.4); ABSOLUTE MONOCYTE COUNT 0.5 /CUMM (0.10-0.60); BASOPHIL % 0.5 % (0.0-2.0); EOSINOPHIL % 4.2 % (0-5); GRANULOCYTE % 71.1 % (42.2-75.2); MEAN CORPUSCULAR HGB 29.8 PG (27.0-31.0); MEAN CORPUSCULAR VOLUME 92.9 FL (81.0-99.0); MEAN PLATELET VOLUME 9.4 FL (7.4-10.4); PLATELET COUNT 253 /CUMM (130-400); RBC DISTRIBUTION WIDTH 15.1 % (11.5-14.5); RED BLOOD CELL CT 2.48 /CUMM (4.20-5.40); WHITE BLOOD CELL COUNT 7.5 /CUMM (4.8-10.8)
[2018-06-04 08:39] LABS: HEMATOCRIT 23.1 % (37-47)
--- NOTE | 2018-06-04 11:04 | PN- Nephrology ---
Assessment/Plan Nephrology Assessment: Cr up. likely related to diuresis. Would continue po lasix for now and recheck labs in AM. LE edema and SOB better. Started on Epogen. this will take time to have an effect (starts 2-4 wks and peaks 4-6). Neftali Marino MD Suggestion: . Subjective Subjective: Feels better today. CT with some increased markings and small effusions. Edema better than baseline. Cr up to 3.5 today. Objective Vital Signs and I&Os F NAD 156 / 64 58 98.6 Lungs clear Cor RRR Abd soft Ext 1+edema Results Pertinent Lab Results: 144 / 106 / 51 / 4.8 / 28 / 3.5\ Hg 7.4
--- NOTE | 2018-06-04 11:42 | PN- Cardiology ---
Subjective Subjective: Patient is feeling better but remains on nasal cannula oxygen. Objective Vital Signs and I&Os Vital Signs Date Time Temp Pulse Resp B/P B/P Pulse O2 O2 Flow FiO2 Mean Ox Delivery Rate 06/04 1008 58 156/64 06/04 1007 58 156/64 06/04 1006 58 156/64 06/04 0815 94 Nasal 3.0L Cannula 06/04 0815 94 06/04 0650 72 168/72 06/04 0628 98.6 74 22 168/70 94 Nasal Cannula 06/04 0136 71 95 06/04 0000 Nasal 3.0L Cannula 06/03 2225 99.1 73 24 162/82 95 06/03 2224 94 CPAP 3.0L 06/03 2214 63 94 06/03 2043 63 146/56 06/03 2042 63 146/56 06/03 2040 63 146/56 06/03 1412 98.3 58 20 124/60 96 Nasal 3.0L Cannula 06/03 1300 55 142/80 06/03 1212 55 142/80 Intake & Output 06/04 1600 06/04 0800 06/04 0000 06/03 1600 06/03 0800 06/03 0000 Intake Total 463 617 8419 Output Total 200 175 500 550 450 Balance 20 185 780 -550 -450 Intake, Oral 735 052 6229 Number 2 Bowel Movements Output, Urine 200 175 500 550 450 Patient 202 lb 205 lb Weight Weight Bed scale Measurement Method Physical Exam: General: no apparent distress. Alert. On nasal cannula Eyes: No obvious scleral icterus. HEENT: No jugular venous distention or abnormal jugular venous pulsations. Cardiovascular: Normal intensity S1/S2. Regular Respiratory: Mildly decreased air entry bilaterally Abdomen: Soft, nontender with no guarding or rebound tenderness. Musculoskeletal: No clubbing or cyanosis noted; trace lower extremity edema Skin: Stasis changes Neurologic: No gross focal deficits noted. Lymph: No gross lymphadenopathy. Current Medications: Current Medications Sig/Udong Start time Last Medication Dose Route Stop Time Status Admin Acetaminophen 325 MG Q6P PRN 05/25 1500 AC 06/01 PO 2127 Albuterol Sulfate 3 ML Q4P PRN 05/24 1300 AC 05/29 INH 0309 Amlodipine Besylate 10 MG DAILY 05/24 1133 AC 06/04 PO 1007 Aspirin 81 MG DAILY 05/24 1133 AC 06/04 PO 1006 Cholecalciferol 1,000 IU DAILY 05/24 1133 AC 06/04 PO 1008 Doxazosin Mesylate 4 MG DAILY 05/24 1134 AC 06/04 PO 1007 Epoetin Ld 10,000 UNITS ONCE A WEEK 06/03 1215 AC 06/03 SC 1300 Ferric Sodium 125 MG Q48H 05/29 0900 AC 06/04 Gluconate Complex IV 06/10 0959 1009 Sodium Chloride 100 ML Furosemide 40 MG DAILY 06/02 0900 AC 06/04 PO 1007 Hydralazine HCl 100 MG TID 05/24 1400 AC 06/04 PO 0650 Isosorbide 90 MG DAILY 06/01 0900 AC 06/04 Mononitrate PO 1006 Labetalol HCl 300 MG BID 05/24 1800 AC 06/04 PO 1008 Minoxidil 5 MG DAILY 06/02 1417 AC 06/04 PO 1007 Multivitamins 1 TAB DAILY 05/24 1136 AC 06/04 Therapeutic PO 1007 Polyethylene Glycol 17 GM DAILY 05/27 1401 AC 06/04 PO 1009 Pravastatin Sodium 20 MG 1700 05/24 1700 AC 06/03 PO 1838 Senna/Docusate Sodium 1 TAB BID PRN 05/27 1415 AC 05/27 PO 1426 Sevelamer Carbonate 800 MG WM 05/24 1200 AC 06/03 PO 1838 Spironolactone 12.5 MG DAILY 05/24 1137 AC 06/04 PO 1009 Vitamin E 200 IU DAILY 05/24 1138 AC 06/04 PO 1008 Results Last 48 Hrs of Labs/Mics: Laboratory Tests 06/04/18 0647: Anion Gap 10, Estimated GFR 13 L, BUN/Creatinine Ratio 14.6, CBC w Diff NO MAN DIFF REQ, RBC 2.48 L, MCV 92.9, MCH 29.8, MCHC 32.0 L, RDW 15.1 H, MPV 9.4, Gran % 71.1, Lymphocytes % 17.0 L, Monocytes % 7.2, Eosinophils % 4.2, Basophils % 0.5, Absolute Granulocytes 5.3, Absolute Lymphocytes 1.3, Absolute Monocytes 0.5, Absolute Eosinophils 0.3, Absolute Basophils 0 06/03/18 0650: Anion Gap 10, Estimated GFR 16 L, BUN/Creatinine Ratio 14.5, CBC w Diff NO MAN DIFF REQ, RBC 2.57 L, MCV 93.0, MCH 30.3, MCHC 32.5 L, RDW 15.7 H, MPV 9.4, Gran % 74.7, Lymphocytes % 12.1 L, Monocytes % 8.6, Eosinophils % 4.1, Basophils % 0.5, Absolute Granulocytes 6.0, Absolute Lymphocytes 1.0 L, Absolute Monocytes 0.7 H, Absolute Eosinophils 0.3, Absolute Basophils 0 Recent Imaging Studies: Telemetry tracings were personally reviewed and shows sinus rhythm and sinus bradycardia Chest x-ray from yesterday Evidence of interval improved aeration at both mid to lower lung chahal since the prior study, which may represent resolving pulmonary edema, infection or a combination thereof. Chest CT from yesterday 1. The constellation of findings is most consistent with congestive heart failure. Whether a superimposed infectious process is within the consolidated portion of the lungs must be based upon clinical assessment. 2. Stable mediastinal lymphadenopathy. 3. Abnormally enlarged right axillary lymph node, increased since the prior studies. This is of uncertain etiology and appropriate clinical assessment is recommended. 4. 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 There is diffuse ectasia and tortuosity of the thoracic aorta. Assessment/Plan Assessment/Plan 1. Hypertensive urgency 2. Acute on chronic heart failure with preserved ejection fraction 3. Chronic kidney disease 4. History of mild aortic stenosis 5. Sleep apnea 6. Chronic venous insufficiency 7. Hyperlipidemia 8. Chronic anemia s/p 2Units PRBCs 9. Asymptomatic nonsustained wide complex run on telemetry 10. Mild aortic dilatation Patient is improving but she remains on supplemental oxygen. Continue on oral Lasix and monitor kidney function. Nephrology is following. Blood pressure is improving with the addition of minoxidil. She remains significantly anemic and has been started on Epogen. Again recommend a workup for secondary causes of hypertension. Eder Hager MD [facility] Continue telemetry? Yes
[2018-06-04 14:39] VITALS: BP 124/48
[2018-06-04 22:01] VITALS: BP 132/84
[2018-06-05 06:38] VITALS: BP 164/82
--- NOTE | 2018-06-05 08:13 | Discharge Summary ---
Visit Information Visit Dates Admission Date: 05/24/18 Discharge Date: 06/10/18 Hospital Course Course Attending Physician: Yanet Wheatley MD Primary Care Physician: Anuj Danielson MD Hospital Course: This is a 77-year-old female with a past medical history of CKD stage IV, anemia , hypertension, CHF, hyperlipidemia, chronic venous insufficiency, that came in for 2 weeks of worsening dyspnea at rest and exertion, lower extremity edema, mild left chest pressure worse on exertion, and hypertension on BP log book. Her blood pressure medication amlodipine was recently increased from 5 mg to 10 mg but she has continued to have high blood pressures for the past month, sometimes in the low 200s. She is usually on 40 mg of Lasix daily but has continued to have lower extremity edema and complains now of orthopnea. Her last echocardiogram showed stage I diastolic dysfunction but preserved ejection fraction. On physical exam, the patient is using her accessory muscles of breathing and notes worsening shortness of breath when walking to the bathroom. In the ED, her vitals showed temperature 98.6, heart rate 111, respiratory rate 20, blood pressure 211/100 which decreased to 172/74 with 10 mg hydralazine push. Oxygen saturation at admission was 85% on room air which increased to 94% on 2 L and with IV Lasix 80 mg. On the floors, patient had a repeat blood pressure done which showed 240/100 in the left arm and 220/100 in the right arm. Her labs showed anemia with a hemoglobin of 8.6 which is baseline for her, mild hypernatremia of 146, BUN of 41, creatinine 2.9 which is chronic for her. Troponin was negative, proBNP was 17,800. LFTs were normal. Chest x-ray showed mildly increasing perihilar interstitial prominence concerning for developing congestion. In the ED, the patient was given hydralazine push 10 mg, Lasix 80 mg IV, Tylenol, Nitro-Bid Assessment -Mild chest pressure rule out ACS -Acute hypoxic respiratory failure secondary to CHF exacerbation versus pulmonary embolism versus as yet undiagnosed pulmonary pathology. -Hypertensive urgency -Stage IV CKD - proteinuria likely secondary to diabetic neuropathy and hypertensive nephrosclerosis -Chronic anemia -Mild hypernatremia -righ rib pain -Evidence of UTI on urinary culture ESBL -Thrombophlebitis Hospital Course/Plan: Acute hypoxic respiratory failure: Mostly secondary to congestive heart failure but also secondary to her kidney failure. Pulmonary embolism ruled out. There was some concern for a PE as her d-dimer was elevated and she was started on heparin. However her blood count was found to dip requiring 2 units of blood and a lower extremity Doppler was negative so heparin was stopped. All guaic's did return negative. As per cardiology we ordered a noncontrast CT of the chest to elucidate further why the patient has increased oxygen requirement despite being optimized on medical therapy for CHF. Nothing else was found other than evidence of CHF. Patient was given on and off lasix as her kidney function could allow. Patient's isosorbide was increased from baseline level. Patient' kidney function was followed by nephrology and in the end, was found to be worsening, likely requiring dialysis. Patient will follow up with nephrology and vascular surgeon for placement of an AV fistula for dialysis. As per food service agent on discharge, patient will continue her 40 mg of Lasix p.o. as needed for lower extremity swelling. Echocardiogram showed at least type II diastolic dysfunction with moderate pulmonary hypertension and ejection fraction 60-65% with elevated filling pressures. Hypertensive urgency: Patient was started on labetalol 300 mg twice a day and as per renal, can uptitrate as needed for her blood pressure if SBP greater than 160. Continued hydralazine 100 mg 3 times a day, amlodipine 10. Patient still had high blood pressures so we began and will continue minoxidil 5 mg daily by mouth. Blood pressures on discharge are stable. Limited workup for cause of hypertensive urgency was done adn showed no sonographic evidence of renal artery stenosis. Stage IV CKD now more likely becoming stage V: UA found proteinuria likely secondary to diabetic neuropathy and hypertensive nephrosclerosis. Cr initially stable and then found to be increasing daily, potentially worsened by CHF. Consulted with nephrology who have discussed placement of AvF with the patient and vascular surgeon Dr. Paredes for potential dialysis. Patient is opposed to home dialysis but is amenable to dialysis center. Patient will follow up with Dr. Paredes in 2-3 weeks for placement of AV fistula. Acute on chronic anemia: Patient found to have chronic anemia secondary to CKD. Acute anemia episode of unknown etiology. Occurred around the time that heparin was started for potential DVT after ddimer was found to be positive after acute hypoxic episode. Guaics done and negative x3. GI consulted and stated they had nothing to add. Heparin stopped after negative lower doppler US. Given 2 units of blood. Given another unit the following week when Hb again dipped. We added Epogen 10,000 units weekly to her medication regimen she will receive from her food service agent. Also IV ferrlicet 125 mg every other day for 8 doses. We will recommend that in a couple weeks she has her iron stores rechecked. We will refer her to Dr. Darling for continued anemia workup. Thrombophlebitis: patient's right arm and left hand lesions may have been superficial thrombophlebitis that is post IV removal. Dilated aorta: 4.2 cm gradually increasing which will need to be followed up on outpatient w/ Dr. Paredes. Evidence of UTI on urinary culture ESBL: colonization. Geiger placed for I/O measurement was removed. Not prsent on admission, not treated with antibiotics as likely this was colononization. Continued patient's other home medications including tramadol, doxazosin, multivitamin, vitamin E/D. We recommended patient follow up with pulmonology outpatient for sleep study, as well as nephrology, vascular surgeon, cardiology. Allergies: Coded Allergies: NO KNOWN ALLERGIES (UNKNOWN 04/24/17) Disposition Summary Disposition Principal Diagnosis: Acute hypoxic respiratory failure secondary to acute diastolic CHF exacerbation Additional Diagnosis: -Mild chest pressure rule out ACS -Hypertensive urgency -Stage IV CKD/ now becoming stage V - proteinuria likely secondary to diabetic neuropathy and hypertensive nephrosclerosis -Chronic anemia -Mild hypernatremia -righ rib pain -Evidence of UTI on urinary culture ESBL but likely colonization. -Thrombophlebitis Discharge Disposition: home health services Discharge Instructions General Discharge Information Code Status: Full Code Patient's Diet: renal non dialysis Patient's Activity: as tolerated Follow-Up Instructions/Appts: 1. Please follow up with pcp Dr. Danielson in one week. 2. Please follow up with x ray tech Dr. Garrett for sleep study 3. Please follow up with bindery cutter operator Dr. Darling for follow up of your anemia. 4. Please follow up with your binder folder operator Dr. Hager in one week 5. Please follow up with your new food service agent Dr. Smallwood in one week. 6. Please follow up with vascular surgeon Dr. Paredes for placement of AV fistula and evaluation of aortic diameter. 7. Please follow up with BMP and CBC on 06/17/18 with results sent to the doctor's specified. Medications at Discharge Discharge Medications: Stop taking the following medications: Nebivolol HCl (Bystolic) 10 MG TABLET ORAL DAILY Spironolactone (Spironolactone) 25 MG TABLET ORAL DAILY Qty = 30 Isosorbide Mononitrate (Isosorbide Mononitrate ER) 60 MG TAB.ER.24H ORAL DAILY Qty = 30 Continue taking these medications: Rosuvastatin Calcium (Crestor) 40 MG TABLET 1 Tablet ORAL DAILY Comments: NOT GIVEN Aspirin (Children's Aspirin) 81 MG TAB.CHEW 1 Tablet ORAL DAILY Comments: Last Taken: 06/10/18 Time: 800AM Multivitamin (Multiple Vitamins) 1 EACH TABLET 1 Tablet ORAL DAILY Comments: Last Taken: 06/10/18 Time: 800AM Vitamin E (Vitamin E) 200 UNIT CAPSULE 1 Capsule ORAL DAILY Comments: Last Taken: 06/10/18 Time: 800AM Cholecalciferol (Vitamin D3) 1,000 UNIT TABLET 1 Tablet ORAL DAILY Comments: Last Taken: 06/10/18 Time: 800AM Hydralazine HCl (Hydralazine HCl) 100 MG TABLET 1 Tablet ORAL THREE TIMES DAILY Qty = 90 Comments: Last Taken: 06/10/18 Time: 800AM Doxazosin Mesylate (Cardura) 4 MG TABLET 1 Tablet ORAL DAILY Comments: Last Taken: 06/10/18 Time: 800AM Sevelamer Carbonate (Renvela) 800 MG TABLET 1 Tablet ORAL WITH MEALS Qty = 90 Comments: Last Taken: 06/10/18 Time: 800AM Amlodipine Besylate (Amlodipine Besylate) 10 MG TABLET 1 Tablet ORAL DAILY Qty = 30 Comments: Last Taken: 06/10/18 Time: 800AM Kotlik-3 Fatty Acids/Fish Oil (Fish Oil 1,000 MG Capsule) 340 MG-1,000 MG CAPSULE 1 Capsule ORAL DAILY Comments: NOT GIVEN Tramadol HCl (Tramadol HCl) 50 MG TABLET 1 Tablet ORAL 2 x Daily as needed as needed for PAIN Qty = 30 Comments: NOT GIVEN Start taking the following new medications: Minoxidil (Minoxidil) 2.5 MG TABLET 5 Milligram ORAL DAILY Qty = 30 No Refills Instructions: . Comments: Last Taken: 06/10/18 Time: 800AM Isosorbide Mononitrate (Isosorbide Mononitrate ER) 30 MG TAB.ER.24H 90 Milligram ORAL DAILY Qty = 30 No Refills Instructions: . Comments: Last Taken: 06/10/18 Time: 800AM Labetalol HCl (Labetalol HCl) 100 MG TABLET 300 Milligram ORAL TWICE DAILY Qty = 90 Refills = 1 Instructions: . Comments: Last Taken: 06/10/18 Time: 800AM Furosemide (Furosemide) 40 MG TABLET 1 Tablet ORAL DAILY as needed for LOWER EXTREMITY SWELLING PRN Qty = 60 No Refills Instructions: .. Copies To: Delmy DUNN,Anuj Liu; Alley DUNN,Dakota; King SHAUN,Davion; Selin DUNN,Ozzie Cortez; Phong DUNN,Jose G Garcias
--- NOTE | 2018-06-05 08:13 | PN- Housestaff ---
Cesar DUNN,Katherine 06/05/18 0813: Subjective Follow-up For: chf exacerbation hypertensive urgency kaylan on ckd Thrombophlebitis Tele-Events Since Last Visit: nsr no events Subjective: Patient has no new complaints today. The swelling on her right arm remains and has become slightly more erythematous. The one on her left had has shrunk, no erythema. She continues to require 3-4 L of oxygen on CPAP overnight. Overnight her blood pressure was stable and this morning 164/82. Review of Systems Constitutional: Reports: no symptoms. Cardiovascular: Reports: no symptoms. Respiratory: Reports: no symptoms. Gastrointestinal: Reports: no symptoms. Genitourinary: Reports: no symptoms. Musculoskeletal: Reports: no symptoms. Skin: Reports: lesions. Neurological/Psychological: Reports: no symptoms. Objective Last 24 Hrs of Vital Signs/I&O Vital Signs Date Time Temp Pulse Resp B/P B/P Pulse O2 O2 Flow FiO2 Mean Ox Delivery Rate 06/05 0832 74 164/82 06/05 0832 74 164/82 06/05 0831 74 164/82 06/05 0830 74 164/82 06/05 0638 98.9 74 18 164/82 94 CPAP 06/05 0000 CPAP 06/04 2318 76 92 06/04 2204 76 146/70 06/04 2204 72 146/70 06/04 2201 99.3 74 18 132/84 93 06/04 1600 Nasal 3.0L Cannula 06/04 1450 77 124/48 06/04 1439 98.7 77 22 124/48 94 Nasal 4.0L Cannula Intake & Output 06/05 1600 06/05 0800 06/05 0000 Intake Total 0 250 Output Total 500 225 Balance -500 25 Intake, Oral 0 250 Output, Urine 500 225 Patient 196 lb Weight Physical Exam General Appearance: Alert, Oriented X3, Cooperative, No Acute Distress Skin: No Rashes, evidence of thrombophlebitis on right arm, tender to palpation, erythematous. Skin Temp/Moisture Exam: Warm/Dry HEENT: Atraumatic, EOMI, Mucous Membr. moist/pink Cardiovascular: Regular Rate, Normal S1, Normal S2, No Murmurs Abdomen: Normal Bowel Sounds, Soft, No Tenderness, No Hepatospenomegaly, No Masses Neurological: Normal Speech Extremities: No Clubbing, No Cyanosis, No Edema, Normal Pulses Vascular: Normal Pulses, Pulses Symmetrical Sepsis Peripheral Pulse Location: Radial Current Medications: Current Medications Sig/Duong Start time Last Medication Dose Route Stop Time Status Admin Acetaminophen 325 MG Q6P PRN 05/25 1500 AC 06/01 PO 2127 Albuterol Sulfate 3 ML Q4P PRN 05/24 1300 AC 05/29 INH 0309 Amlodipine Besylate 10 MG DAILY 05/24 1133 AC 06/05 PO 0832 Aspirin 81 MG DAILY 05/24 1133 AC 06/05 PO 0830 Cholecalciferol 1,000 IU DAILY 05/24 1133 AC 06/05 PO 0832 Doxazosin Mesylate 4 MG DAILY 05/24 1134 AC 06/05 PO 0831 Epoetin Ld 10,000 UNITS ONCE A WEEK 06/03 1215 AC 06/03 SC 1300 Ferric Sodium 125 MG Q48H 05/29 0900 AC 06/04 Gluconate Complex IV 06/10 0959 1009 Sodium Chloride 100 ML Furosemide 40 MG DAILY 06/02 0900 AC 06/05 PO 0831 Hydralazine HCl 100 MG TID 05/24 1400 AC 06/05 PO 0830 Isosorbide 90 MG DAILY 06/01 0900 AC 06/05 Mononitrate PO 0831 Labetalol HCl 300 MG BID 05/24 1800 AC 06/05 PO 0832 Minoxidil 5 MG DAILY 06/02 1417 AC 06/05 PO 0831 Multivitamins 1 TAB DAILY 05/24 1136 AC 06/05 Therapeutic PO 0833 Polyethylene Glycol 17 GM DAILY 05/27 1401 AC 06/05 PO 0832 Pravastatin Sodium 20 MG 1700 05/24 1700 AC 06/04 PO 1727 Senna/Docusate Sodium 1 TAB BID PRN 05/27 1415 AC 05/27 PO 1426 Sevelamer Carbonate 800 MG WM 05/24 1200 AC 06/05 PO 0829 Spironolactone 12.5 MG DAILY 05/24 1137 AC 06/05 PO 0829 Vitamin E 200 IU DAILY 05/24 1138 AC 06/05 PO 0829 Last 24 Hrs of Lab/Ary Results Last 24 Hrs of Labs/Mics: Laboratory Tests 06/05/18 0635: Anion Gap 10, Estimated GFR 11 L, BUN/Creatinine Ratio 13.1, CBC w Diff NO MAN DIFF REQ, RBC 2.46 L, MCV 93.5, MCH 29.4, MCHC 31.4 L, RDW 15.5 H, MPV 9.1, Gran % 69.1, Lymphocytes % 16.4 L, Monocytes % 8.6, Eosinophils % 4.7, Basophils % 1.2, Absolute Granulocytes 5.0, Absolute Lymphocytes 1.2, Absolute Monocytes 0.6, Absolute Eosinophils 0.3, Absolute Basophils 0.1 Assessment/Plan Assessment: This is a 77-year-old female with a past medical history of CKD stage IV, anemia , hypertension, CHF, hyperlipidemia, chronic venous insufficiency, that comes in to see us for 2 weeks of worsening dyspnea at rest and exertion, lower extremity edema, mild left chest pressure worse on exertion, and hypertension on BP log book. Her blood pressure was recently increased from 5 mg to 10 mg but she has continued to have high blood pressures for the past month, sometimes in the low 200s. She is usually on 40 mg of Lasix daily but has continued to have lower extremity edema and complains now of orthopnea. Her last echocardiogram showed stage I diastolic dysfunction but preserved ejection fraction. On physical exam , the patient is using her accessory muscles of breathing and notes worsening shortness of breath when walking to the bathroom. In the ED, her vitals showed temperature 98.6, heart rate 111, respiratory rate 20, blood pressure 211/100 which decreased to 172/74 with 10 mg hydralazine push. Oxygen saturation at admission was 85% on room air which increased to 94% on 2 L and with IV Lasix 80 mg. On the floors, patient had a repeat blood pressure done which showed 240/100 in the left arm and 220/100 in the right arm. Her labs showed anemia with a hemoglobin of 8.6 which is baseline for her, mild hypernatremia of 146, BUN of 41, creatinine 2.9 which is chronic for her. Troponin was negative, proBNP was 17,800. LFTs were normal. Chest x-ray showed mildly increasing perihilar interstitial prominence concerning for developing congestion. In the ED, the patient was given hydralazine push 10 mg, Lasix 80 mg IV, Tylenol , Nitro-Bid Assessment -Mild chest pressure rule out ACS -Acute hypoxic respiratory failure secondary to CHF exacerbation versus pulmonary embolism versus as yet undiagnosed pulmonary pathology. -Hypertensive urgency -Stage IV CKD - proteinuria likely secondary to diabetic neuropathy and hypertensive nephrosclerosis -Chronic anemia -Mild hypernatremia -righ rib pain -Evidence of UTI on urinary culture ESBL -Thrombophlebitis Plan - Patient has continued issues with her oxygenation requiring at least 3 L. She has been on BiPAP or CPAP here, takes CPAP at home has not had a regular follow- up in quite some time. She has been to see Dr. Dawn and Bruna Regalado MD in the past but has been lost to follow-up. She was switched from IV Lasix to by mouth Lasix on and off during her stay. There was some concern for a PE as her d-dimer was elevated last weekend and she was started on heparin. However her blood count was found to dip requiring 2 units of blood and a lower extremity Doppler was negative so heparin was stopped. If patient continues to have a decompensated oxygen level we will consider VQ scan. -Continue Lasix by mouth 40 for now. Patient is on spironolactone 12.5. As per cardio we increased the isosorbide dose as well. We ordered a repeat chest x- ray which showed interval decrease in her congestion. As per cardiology we ordered a noncontrast CT of the chest to elucidate further why the patient has increased oxygen requirement despite being optimized on medical therapy for CHF. Nothing else was found other than evidence of CHF. The patient has had little p.o. liquid intake and has had a bump in creatinine on Lasix, now to 3.9 on . As patient continues to have increased oxygen dependence we have put in an official fluid restriction of 1500 cc per day. Of note on most recent CT chest, patient was found to have a dilated aorta 4.2 cm gradually increasing which will need to be followed up on outpatient. -Wean from oxygen and BiPAP as able. We will encourage use of incentive spirometer. -For patient's right rib pain order a rib x-ray unilateral right side which showed subacute healing fractures involving the anterior end of the ninth through 11th ribs on the right with no pneumothorax. -As per cardiac consult the patient was started on labetalol 300 mg twice a day and as per renal, can uptitrate as needed for her blood pressure if SBP greater than 160. We continued her other blood pressure medications hydralazine 100 mg 3 times a day, amlodipine 10. We will hold patient's bystolic which she was receiving before she was admitted. We will hold giving clonidine as this could also drop her heart rates which have been around 65. We will continue minoxidil 5 mg daily by mouth. Blood pressures today are stable. -She has acute on chronic anemia. We have consulted by phone with GI who states that we should do a guaiac on the stools and let them know of any acute changes and blood count. Guaiac each time has been negative. When the patient was started on heparin, her low blood count lab returned almost within an hour starting heparin which as per Surendra Chou MD, would not be so quick to decrease. Repeat guaiac following this was negative. I have renewed the order for guaiac today to make sure the nursing checks and new guaiac as her hemoglobin has continued to fall, now to 7.2. We are still unsure of the cause of the drop in hemoglobin. We added Epogen 10,000 units weekly to her medication regimen. Also IV ferrlicet 125 mg every other day for 8 doses, patient is on her last dose. We will recommend that in a couple weeks she has her iron stores rechecked. -All troponins and EKGs have been negative for ACS. We did a troponin 3 days ago when patient had a 16 beat run of V. tach which was negative. -Daily weights, strict I's and O's, the patient was switched from Lasix 40 by mouth to IV this weekend during her acute decompensation but is now on 40 mg Lasix p.o. daily which we will continue. Of note, the patient had decreased urine output yesterday of 625 but so far today is 500. Previously her urine output has been over 1000 per shift. We will continue to strictly monitor and continue Geiger for now. -Of note patient was found to have evidence of ESBL Escherichia coli on her recent urine culture. -Echocardiogram showed at least type II diastolic dysfunction with moderate pulmonary hypertension and ejection fraction 60-65% with elevated filling pressures. -[facility] nebs -Encourage low salt diet -Continue patient's other home medications including tramadol, doxazosin, multivitamin, vitamin E/D. -Encourage patient to ambulate -We will recommend patient follow up with pulmonology outpatient for sleep study -We will keep an eye on patient's right arm and left hand lesions which may be developing superficial thrombophlebitis that is post IV removal CHF diet Patient is full code DVT prophylaxis with Alps and heparin SQ Problem List: 1. Hypertensive urgency 2. Chronic kidney disease 3. CHF (congestive heart failure) 4. UTI (urinary tract infection) Pain Ratin Pain Location: na Pain Goal: Remain pain free Pain Plan: na Tomorrow's Labs & Rationales: rodolfo Santiago MD,Amir 06/05/18 1513: Attending MD Review Statement Attending Statement Attending MD Statement: examined this patient, discuss w/resident/PA/AUTO WINDER, agreed w/resident/PA/AUTO WINDER, reviewed EMR data (avail), discussed with nursing Attending Assessment/Plan: Pt was seen and evaluated. BP better today. Pt being f/u with Cards and Renal --cont to monitor BP, if remains elevated; need to r/o sec causes --Urine growing EBSL - likely colonization
[2018-06-05] MEDS ORDERED: MINOXIDIL2.5 M1 PO (08:14)
[2018-06-05 08:15] LABS: ABSOLUTE EOSINOPHIL COUNT 0.3 /CUMM (0.0-0.7); ABSOLUTE MONOCYTE COUNT 0.6 /CUMM (0.10-0.60)
[2018-06-05 08:54] LABS: ABSOLUTE BASOPHIL COUNT 0.1 /CUMM (0.0-0.2); ABSOLUTE LYMPH COUNT 1.2 /CUMM (1.2-3.4); BASOPHIL % 1.2 % (0.0-2.0); EOSINOPHIL % 4.7 % (0-5); GRANULOCYTE % 69.1 % (42.2-75.2); MEAN CORPUSCULAR HGB 29.4 PG (27.0-31.0); MEAN CORPUSCULAR HGB CONC 31.4 G/DL (33.0-37.0); MEAN CORPUSCULAR VOLUME 93.5 FL (81.0-99.0); MEAN PLATELET VOLUME 9.1 FL (7.4-10.4); PLATELET COUNT 275 /CUMM (130-400); RBC DISTRIBUTION WIDTH 15.5 % (11.5-14.5); RED BLOOD CELL CT 2.46 /CUMM (4.20-5.40); WHITE BLOOD CELL COUNT 7.2 /CUMM (4.8-10.8)
[2018-06-05 11:00] VITALS: BP 108/40
--- NOTE | 2018-06-05 12:50 | PN- Cardiology ---
Subjective Subjective: Reports fatigue today. Denies active shortness of breath at rest. Objective Vital Signs and I&Os Vital Signs Date Time Temp Pulse Resp B/P B/P Pulse O2 O2 Flow FiO2 Mean Ox Delivery Rate 06/05 1100 48 108/40 06/05 0832 74 164/82 06/05 0832 74 164/82 06/05 0831 74 164/82 06/05 0830 74 164/82 06/05 0638 98.9 74 18 164/82 94 CPAP 06/05 0000 CPAP 06/04 2318 76 92 06/04 2204 76 146/70 06/04 2204 72 146/70 06/04 2201 99.3 74 18 132/84 93 06/04 1600 Nasal 3.0L Cannula 06/04 1450 77 124/48 06/04 1439 98.7 77 22 94 Nasal 4.0L Cannula Intake & Output 06/05 1600 06/05 0800 06/05 0000 06/04 1600 06/04 0800 06/04 0000 Intake Total 0 250 600 220 360 Output Total 500 225 200 200 175 Balance -500 25 400 20 185 Intake, IV 100 Intake, Oral 0 250 500 220 360 Number 0 2 Bowel Movements Output, Urine 500 225 200 200 175 Patient 196 lb 202 lb Weight Physical Exam: General: no apparent distress. Alert. On nasal cannula Eyes: No obvious scleral icterus. HEENT: No jugular venous distention or abnormal jugular venous pulsations. Cardiovascular: Normal intensity S1/S2. Regular Respiratory: Mildly decreased air entry bilaterally Abdomen: Soft, nontender with no guarding or rebound tenderness. Musculoskeletal: No clubbing or cyanosis noted; trace lower extremity edema Skin: Stasis changes Neurologic: No gross focal deficits noted. Lymph: No gross lymphadenopathy. Current Medications: Current Medications Sig/Duong Start time Last Medication Dose Route Stop Time Status Admin Acetaminophen 325 MG Q6P PRN 05/25 1500 AC 06/01 PO 2127 Albuterol Sulfate 3 ML Q4P PRN 05/24 1300 AC 05/29 INH 0309 Amlodipine Besylate 10 MG DAILY 05/24 1133 AC 06/05 PO 0832 Aspirin 81 MG DAILY 05/24 1133 AC 06/05 PO 0830 Cholecalciferol 1,000 IU DAILY 05/24 1133 AC 06/05 PO 0832 Doxazosin Mesylate 4 MG DAILY 05/24 1134 AC 06/05 PO 0831 Epoetin Ld 10,000 UNITS ONCE A WEEK 06/03 1215 AC 06/03 SC 1300 Ferric Sodium 125 MG Q48H 05/29 0900 AC 06/04 Gluconate Complex IV 06/10 0959 1009 Sodium Chloride 100 ML Furosemide 40 MG DAILY 06/02 0900 AC 06/05 PO 0831 Hydralazine HCl 100 MG TID 05/24 1400 AC 06/05 PO 0830 Isosorbide 90 MG DAILY 06/01 0900 AC 06/05 Mononitrate PO 0831 Labetalol HCl 300 MG BID 05/24 1800 AC 06/05 PO 0832 Minoxidil 5 MG DAILY 06/02 1417 AC 06/05 PO 0831 Multivitamins 1 TAB DAILY 05/24 1136 AC 06/05 Therapeutic PO 0833 Polyethylene Glycol 17 GM DAILY 05/27 1401 AC 06/05 PO 0832 Pravastatin Sodium 20 MG 1700 05/24 1700 AC 06/04 PO 1727 Senna/Docusate Sodium 1 TAB BID PRN 05/27 1415 AC 05/27 PO 1426 Sevelamer Carbonate 800 MG WM 05/24 1200 AC 06/05 PO 0829 Spironolactone 12.5 MG DAILY 05/24 1137 AC 06/05 PO 0829 Vitamin E 200 IU DAILY 05/24 1138 AC 06/05 PO 0829 Results Last 48 Hrs of Labs/Mics: Laboratory Tests 06/05/18 0635: Anion Gap 10, Estimated GFR 11 L, BUN/Creatinine Ratio 13.1, CBC w Diff NO MAN DIFF REQ, RBC 2.46 L, MCV 93.5, MCH 29.4, MCHC 31.4 L, RDW 15.5 H, MPV 9.1, Gran % 69.1, Lymphocytes % 16.4 L, Monocytes % 8.6, Eosinophils % 4.7, Basophils % 1.2, Absolute Granulocytes 5.0, Absolute Lymphocytes 1.2, Absolute Monocytes 0.6, Absolute Eosinophils 0.3, Absolute Basophils 0.1 06/04/18 0647: Anion Gap 10, Estimated GFR 13 L, BUN/Creatinine Ratio 14.6, CBC w Diff NO MAN DIFF REQ, RBC 2.48 L, MCV 92.9, MCH 29.8, MCHC 32.0 L, RDW 15.1 H, MPV 9.4, Gran % 71.1, Lymphocytes % 17.0 L, Monocytes % 7.2, Eosinophils % 4.2, Basophils % 0.5, Absolute Granulocytes 5.3, Absolute Lymphocytes 1.3, Absolute Monocytes 0.5, Absolute Eosinophils 0.3, Absolute Basophils 0 Recent Imaging Studies: Telemetry tracings were personally reviewed shows sinus rhythm Assessment/Plan Assessment/Plan 1. Hypertensive urgency 2. Acute on chronic heart failure with preserved ejection fraction 3. Chronic kidney disease 4. History of mild aortic stenosis 5. Sleep apnea 6. Chronic venous insufficiency 7. Hyperlipidemia 8. Chronic anemia s/p 2Units PRBCs 9. Asymptomatic nonsustained wide complex run on telemetry 10. Mild aortic dilatation Patient feels fatigued today but denies shortness of breath at rest. Remains on supplemental oxygen. Hemoglobin is down to 7.2 and she may require recurrent transfusion. Creatinine continues to rise; follow-up nephrology recommendations but may need to hold Lasix temporarily. Again recommend a workup for secondary causes of hypertension. It appears this has still not been initiated. Eder Hager MD [facility] Continue telemetry? Yes
[2018-06-05 15:30] VITALS: BP 106/44
[2018-06-05 22:20] VITALS: BP 140/50
[2018-06-06 07:09] VITALS: BP 132/60
--- NOTE | 2018-06-06 08:54 | PN- Housestaff ---
Theo DUNN,Fior 06/06/18 0854: Subjective Follow-up For: worsening dyspnea at rest and exertion, Subjective: Saw pt at bedside. No acute overnight events, she was in afib on tele monitor. Rate controlled. Pt stated that her swelling seemed much better and that she felt like she could breathe better. Review of Systems Constitutional: Denies: chills, fever, weakness. EENTM: Reports: no symptoms. Cardiovascular: Denies: chest pain. Respiratory: Denies: cough, short of breath. Gastrointestinal: Denies: abdominal pain, constipation. Genitourinary: Reports: no symptoms. Musculoskeletal: Denies: back pain. Objective Last 24 Hrs of Vital Signs/I&O Vital Signs Date Time Temp Pulse Resp B/P B/P Pulse O2 O2 Flow FiO2 Mean Ox Delivery Rate 06/06 1600 Nasal 3.0L Cannula 06/06 1452 59 138/54 06/06 1441 98.7 59 20 138/54 95 06/06 1224 92 Nasal 2.0L Cannula 06/06 1204 74 170/72 06/06 1203 74 170/72 06/06 1202 74 170/72 06/06 1201 72 170/72 06/06 0800 92 Nasal 2.0L Cannula 06/06 0709 98.1 76 20 132/60 92 06/06 0000 95 BIPAP 06/05 2324 92 Nasal 2.0L Cannula 06/05 2324 89 92 06/05 2220 99.3 80 20 140/50 92 06/05 2153 83 140/80 06/05 2152 83 140/80 Intake & Output 06/06 1600 06/06 0800 06/06 0000 Intake Total 410 50 300 Output Total 300 225 125 Balance 110 -175 175 Intake, IV 110 Intake, Oral 300 50 300 Number 0 Bowel Movements Output, Urine 300 225 125 Physical Exam General Appearance: Alert, Oriented X3, Cooperative HEENT: Atraumatic, PERRLA, EOMI Neck: Supple Cardiovascular: irreg irreg Lungs: Normal Air Movement Abdomen: Soft, No Tenderness Extremities: 3+ edema bilat LE. right worse than left Current Medications: Current Medications Sig/Duong Start time Last Medication Dose Route Stop Time Status Admin Acetaminophen 325 MG Q6P PRN 05/25 1500 AC 06/01 PO 2127 Albuterol Sulfate 3 ML Q4P PRN 05/24 1300 AC 05/29 INH 0309 Amlodipine Besylate 10 MG DAILY 05/24 1133 AC 06/06 PO 1203 Aspirin 81 MG DAILY 05/24 1133 AC 06/06 PO 1202 Cholecalciferol 1,000 IU DAILY 05/24 1133 AC 06/06 PO 1204 Doxazosin Mesylate 4 MG DAILY 05/24 1134 AC 06/06 PO 1203 Epoetin Ld 10,000 UNITS ONCE A WEEK 06/03 1215 AC 06/03 SC 1300 Ferric Sodium 125 MG Q48H 05/29 0900 AC 06/06 Gluconate Complex IV 06/10 0959 1255 Sodium Chloride 100 ML Hydralazine HCl 100 MG TID 05/24 1400 AC 06/06 PO 1452 Isosorbide 90 MG DAILY 06/01 0900 AC 06/06 Mononitrate PO 1202 Labetalol HCl 300 MG BID 05/24 1800 AC 06/06 PO 1204 Minoxidil 5 MG DAILY 06/02 1417 AC 06/06 PO 1201 Multivitamins 1 TAB DAILY 05/24 1136 AC 06/06 Therapeutic PO 1203 Polyethylene Glycol 17 GM DAILY 05/27 1401 AC 06/06 PO 1206 Pravastatin Sodium 20 MG 1700 05/24 1700 AC 06/06 PO 1651 Senna/Docusate Sodium 1 TAB BID PRN 05/27 1415 AC 05/27 PO 1426 Sevelamer Carbonate 800 MG WM 05/24 1200 AC 06/06 PO 1651 Spironolactone 12.5 MG DAILY 05/24 1137 DC 06/05 PO 0829 Vitamin E 200 IU DAILY 05/24 1138 AC 06/06 PO 1204 Last 24 Hrs of Lab/Ray Results Last 24 Hrs of Labs/Mics: Laboratory Tests 06/06/18 0815: Anion Gap 13, Estimated GFR 11 L, BUN/Creatinine Ratio 14.3, CBC w Diff NO MAN DIFF REQ, RBC 2.45 L, MCV 94.3, MCH 29.4, MCHC 31.2 L, RDW 15.6 H, MPV 9.1, Gran % 65.6, Lymphocytes % 19.0 L, Monocytes % 9.0, Eosinophils % 5.5 H, Basophils % 0.9, Absolute Granulocytes 4.4, Absolute Lymphocytes 1.3, Absolute Monocytes 0.6, Absolute Eosinophils 0.4, Absolute Basophils 0.1 Assessment/Plan Assessment: This is a 77-year-old female with a past medical history of CKD stage IV, anemia , hypertension, CHF, hyperlipidemia, chronic venous insufficiency, with CC: 2 weeks of worsening dyspnea at rest and exertion, lower extremity edema, mild left chest pressure worse on exertion, and hypertension on BP log book. In ED she was noted to be using her accessory muscles of breathing and notes worsening shortness of breath when walking to the bathroom. PLAN: Today pt has eosinophilia on peripheral smear and Cr is worsening to 4. Acute hypoxic respiratory failure: There was some concern for a PE as her d- dimer was elevated last weekend and she was started on heparin. However her blood count was found to dip requiring 2 units of blood and a lower extremity Doppler was negative so heparin was stopped. As per cardiology we ordered a noncontrast CT of the chest to elucidate further why the patient has increased oxygen requirement despite being optimized on medical therapy for CHF. Nothing else was found other than evidence of CHF. * If patient continues to have a decompensated oxygen level we will consider VQ scan. * D/C lasix due to Cr * Con't isosorbid * fluid restriction of 1500 cc per day; may have to liberalize given Cr. But at this time I just held the lasix and held off giving any fluids in hope her Cr. would improve without further insult. * Echocardiogram showed at least type II diastolic dysfunction with moderate pulmonary hypertension and ejection fraction 60-65% with elevated filling pressures. Hypertensive urgency: * Patient was started on labetalol 300 mg twice a day and as per renal, can uptitrate as needed for her blood pressure if SBP greater than 160. * continued hydralazine 100 mg 3 times a day, amlodipine 10. * We will continue minoxidil 5 mg daily by mouth. Blood pressures today are stable. Stage IV CKD: proteinuria likely secondary to diabetic neuropathy and hypertensive nephrosclerosis. Cr today 4.0. Chronic anemia: * We added Epogen 10,000 units weekly to her medication regimen. * Also IV ferrlicet 125 mg every other day for 8 doses, patient is on her last dose. * We will recommend that in a couple weeks she has her iron stores rechecked. * Multiple times guiac negative Thrombophlebitis: We will keep an eye on patient's right arm and left hand lesions which may be developing superficial thrombophlebitis that is post IV removal dilated aorta: 4.2 cm gradually increasing which will need to be followed up on outpatient. Evidence of UTI on urinary culture ESBL Continue patient's other home medications including tramadol, doxazosin, multivitamin, vitamin E/D. We will recommend patient follow up with pulmonology outpatient for sleep study CHF diet Patient is full code DVT prophylaxis with Alps and heparin SQ Problem List: 1. CHF exacerbation Pain Ratin Pain Location: NONE Pain Goal: Remain pain free Pain Plan: NONE Tomorrow's Labs & Rationales: CBC BEP Jack DUNN,Amir 06/06/18 1205: Attending MD Review Statement Attending Statement Attending MD Statement: examined this patient, discuss w/resident/PA/CONTAINER PACKER OPERATOR, agreed w/resident/PA/CONTAINER PACKER OPERATOR, reviewed EMR data (avail), discussed with nursing Attending Assessment/Plan: pt still requiring Oxygen, cont Lasix pt still requiring Oxygen, cont Lasix
[2018-06-06 10:18] LABS: ABSOLUTE BASOPHIL COUNT 0.1 /CUMM (0.0-0.2); ABSOLUTE EOSINOPHIL COUNT 0.4 /CUMM (0.0-0.7); ABSOLUTE GRANULOCYTE CT 4.4 /CUMM (1.4-6.5); RED BLOOD CELL CT 2.45 /CUMM (4.20-5.40); WHITE BLOOD CELL COUNT 6.7 /CUMM (4.8-10.8)
[2018-06-06 10:22] LABS: ABSOLUTE LYMPH COUNT 1.3 /CUMM (1.2-3.4); ABSOLUTE MONOCYTE COUNT 0.6 /CUMM (0.10-0.60); BASOPHIL % 0.9 % (0.0-2.0); EOSINOPHIL % 5.5 % (0-5); GRANULOCYTE % 65.6 % (42.2-75.2); HEMATOCRIT 23.1 % (37-47); MEAN CORPUSCULAR HGB 29.4 PG (27.0-31.0); MEAN CORPUSCULAR HGB CONC 31.2 G/DL (33.0-37.0); MEAN CORPUSCULAR VOLUME 94.3 FL (81.0-99.0); MEAN PLATELET VOLUME 9.1 FL (7.4-10.4); PLATELET COUNT 266 /CUMM (130-400); RBC DISTRIBUTION WIDTH 15.6 % (11.5-14.5)
--- NOTE | 2018-06-06 12:09 | ULTRASOUND REPORT ---
EXAMINATION: US TRIPLEX SCANNING RIGHT UPPER EXTREMITY CLINICAL INFORMATION: Right forearm swelling. COMPARISON: None. TECHNIQUE: Color-flow triplex imaging with spectral analysis and compression Doppler were performed on the right upper extremity. FINDINGS: Respiratory variation, normal compression and augmented flow are noted throughout the right upper extremity. The visualized basilic vein, cephalic vein, axillary vein and subclavian vein segments show no evidence of deep venous thrombosis. In the region of the patient's physical exam findings, there is a noncompressible superficial vein with subtly echogenic thrombus, consistent with superficial venous thrombosis. IMPRESSION: No evidence of deep vein thrombosis involving the right upper extremity. However, in the region of the patient's physical exam findings, there is a noncompressible superficial vein with subtly echogenic intraluminal thrombus, consistent with superficial venous thrombosis. This is nonocclusive. Thrombophlebitis could give this appearance.
[2018-06-06 14:41] VITALS: BP 138/54
--- NOTE | 2018-06-06 14:57 | ULTRASOUND REPORT ---
EXAMINATION: ULTRASOUND RENAL WITH DOPPLER CLINICAL INFORMATION: Hypertension. Evaluate for renal artery stenosis. COMPARISON: CT abdomen pelvis 05/25/2017. TECHNIQUE: Real-time grayscale, color Doppler, and duplex Doppler evaluation of the kidneys and renal vasculature was performed. FINDINGS: RENAL MEASUREMENTS: Right: 9.9 x 4.2 x 4.4 cm (Sag x AP x TV). Left: 9.8 x 4.3 x 4.0 cm (Sag x AP x TV). The renal cortices are thinned symmetrically with increased echogenicity. Few bilateral renal cysts. The largest on the right measures 1.4 x 1.6 x 1.6 cm. The largest on the left measures 4.8 x 2.5 x 4.1 cm. DOPPLER INTERROGATION: Aorta: 3.6 cm/sec. Right Main Renal Artery: Proximal: 130 cm/sec. Mid: 103 cm/sec. Distal: 79.2 cm/sec. Left Main Renal Artery: Proximal: 96.9 cm/sec. Mid: 169 cm/sec. Distal: 151 cm/sec. Abdominal aortic aneurysm measuring 3.9 x 3.9 x 4.0 cm. IMPRESSION: 1. No sonographic evidence of renal artery stenosis by velocity criteria. 2. Abdominal aortic aneurysm measuring up to 4 cm, similar to the prior abdominal CT from 05/25/2017.
[2018-06-06 21:54] VITALS: BP 160/58
[2018-06-07 06:45] VITALS: BP 160/50
--- NOTE | 2018-06-07 07:43 | PN- Housestaff ---
Cesar DUNN,Katherine 06/07/18 0743: Subjective Follow-up For: CHF exacerbation Hypertensive urgency Stage IV CKD Subjective: Patient seen and examined. She states that today she feels the best she has felt yet. However, she remains concerned about returning home. She continues to have some slight redness of her arm at the area of likely thrombophlebitis secondary to her IV. She denies any shortness of breath or chest pain and this morning is on 2 -3l. All other vitals are stable. Review of Systems Constitutional: Reports: no symptoms. Cardiovascular: Reports: no symptoms. Respiratory: Reports: no symptoms. Gastrointestinal: Reports: no symptoms. Genitourinary: Reports: no symptoms. Musculoskeletal: Reports: joint pain. Neurological/Psychological: Reports: no symptoms. Objective Last 24 Hrs of Vital Signs/I&O Vital Signs Date Time Temp Pulse Resp B/P B/P Pulse O2 O2 Flow FiO2 Mean Ox Delivery Rate 06/07 1422 98.3 69 20 128/62 92 Nasal 2.0L Cannula 06/07 1412 75 160/50 06/07 0944 75 160/50 06/07 0942 75 160/50 06/07 0941 75 160/50 06/07 0939 75 160/50 06/07 0645 98.2 75 20 160/50 97 Nasal 3.0L Cannula 06/07 0015 74 94 06/07 0000 Nasal 2.0L Cannula 06/06 2232 74 92 06/06 2231 93 CPAP 3.0L 06/06 2154 97.5 75 18 160/58 94 Nasal Cannula 06/06 2116 72 160/58 06/06 2116 72 160/58 Intake & Output 06/07 1600 06/07 0800 06/07 0000 Intake Total 350 Output Total 250 276 200 Balance -250 -276 150 Intake, Oral 350 Output, Stool 1 Output, Urine 250 275 200 Patient 209 lb Weight Weight Bed scale Measurement Method Physical Exam General Appearance: Alert, Oriented X3, Cooperative, No Acute Distress Skin Temp/Moisture Exam: Warm/Dry HEENT: Atraumatic, PERRLA, EOMI, Mucous Membr. moist/pink Cardiovascular: Regular Rate, Normal S1, Normal S2 Lungs: Clear to Auscultation, Normal Air Movement Abdomen: Normal Bowel Sounds, Soft, No Tenderness Neurological: Normal Speech Extremities: less edema than previously bilaterally. continues with redness and swelling right arm at the area of thrombophlebitis. Vascular: Normal Pulses Current Medications: Current Medications Sig/Duong Start time Last Medication Dose Route Stop Time Status Admin Acetaminophen 325 MG Q6P PRN 05/25 1500 AC 06/01 PO 2127 Albuterol Sulfate 3 ML Q4P PRN 05/24 1300 AC 05/29 INH 0309 Amlodipine Besylate 10 MG DAILY 05/24 1133 AC 06/07 PO 0944 Aspirin 81 MG DAILY 05/24 1133 AC 06/07 PO 0941 Cholecalciferol 1,000 IU DAILY 05/24 1133 AC 06/07 PO 0944 Doxazosin Mesylate 4 MG DAILY 05/24 1134 AC 06/07 PO 0943 Epoetin Ld 10,000 UNITS ONCE A WEEK 06/03 1215 AC 06/03 SC 1300 Ferric Sodium 125 MG Q48H 05/29 0900 AC 06/06 Gluconate Complex IV 06/10 0959 1255 Sodium Chloride 100 ML Hydralazine HCl 100 MG TID 05/24 1400 AC 06/07 PO 1412 Isosorbide 90 MG DAILY 06/01 0900 AC 06/07 Mononitrate PO 0942 Labetalol HCl 300 MG BID 05/24 1800 AC 06/07 PO 0941 Minoxidil 5 MG DAILY 06/02 1417 AC 06/07 PO 0940 Multivitamins 1 TAB DAILY 05/24 1136 AC 06/07 Therapeutic PO 0940 Polyethylene Glycol 17 GM DAILY 05/27 1401 AC 06/07 PO 0941 Pravastatin Sodium 20 MG 1700 05/24 1700 AC 06/06 PO 1651 Senna/Docusate Sodium 1 TAB BID PRN 05/27 1415 AC 05/27 PO 1426 Sevelamer Carbonate 800 MG WM 05/24 1200 AC 06/07 PO 1231 Vitamin E 200 IU DAILY 05/24 1138 AC 06/07 PO 0944 Last 24 Hrs of Lab/Ray Results Last 24 Hrs of Labs/Mics: Laboratory Tests 06/07/18 0915: Anion Gap 13, Estimated GFR 11 L, BUN/Creatinine Ratio 14.1, CBC w Diff NO MAN DIFF REQ, RBC 2.51 L, MCV 93.2, MCH 29.7, MCHC 31.9 L, RDW 15.6 H, MPV 9.0, Gran % 71.8, Lymphocytes % 15.1 L, Monocytes % 7.3, Eosinophils % 5.2 H, Basophils % 0.6, Absolute Granulocytes 5.1, Absolute Lymphocytes 1.1 L, Absolute Monocytes 0.5, Absolute Eosinophils 0.4, Absolute Basophils 0 Assessment/Plan Assessment: This is a 77-year-old female with a past medical history of CKD stage IV, anemia , hypertension, CHF, hyperlipidemia, chronic venous insufficiency, that comes in to see us for 2 weeks of worsening dyspnea at rest and exertion, lower extremity edema, mild left chest pressure worse on exertion, and hypertension on BP log book. Her blood pressure was recently increased from 5 mg to 10 mg but she has continued to have high blood pressures for the past month, sometimes in the low 200s. She is usually on 40 mg of Lasix daily but has continued to have lower extremity edema and complains now of orthopnea. Her last echocardiogram showed stage I diastolic dysfunction but preserved ejection fraction. On physical exam , the patient is using her accessory muscles of breathing and notes worsening shortness of breath when walking to the bathroom. In the ED, her vitals showed temperature 98.6, heart rate 111, respiratory rate 20, blood pressure 211/100 which decreased to 172/74 with 10 mg hydralazine push. Oxygen saturation at admission was 85% on room air which increased to 94% on 2 L and with IV Lasix 80 mg. On the floors, patient had a repeat blood pressure done which showed 240/100 in the left arm and 220/100 in the right arm. Her labs showed anemia with a hemoglobin of 8.6 which is baseline for her, mild hypernatremia of 146, BUN of 41, creatinine 2.9 which is chronic for her. Troponin was negative, proBNP was 17,800. LFTs were normal. Chest x-ray showed mildly increasing perihilar interstitial prominence concerning for developing congestion. In the ED, the patient was given hydralazine push 10 mg, Lasix 80 mg IV, Tylenol , Nitro-Bid Assessment -Mild chest pressure rule out ACS -Acute hypoxic respiratory failure secondary to CHF exacerbation versus pulmonary embolism versus as yet undiagnosed pulmonary pathology. -Hypertensive urgency -Stage IV CKD - proteinuria likely secondary to diabetic neuropathy and hypertensive nephrosclerosis -Chronic anemia -Mild hypernatremia -righ rib pain -Evidence of UTI on urinary culture ESBL -Thrombophlebitis Plan - Patient has continued issues with her oxygenation requiring at least 3 L. She has been on BiPAP or CPAP here, takes CPAP at home has not had a regular follow- up in quite some time. She has been to see Dr. Dawn and Bruna Regalado MD in the past but has been lost to follow-up. She was switched from IV Lasix to by mouth Lasix on and off during her stay. There was some concern for a PE as her d-dimer was elevated last weekend and she was started on heparin. However her blood count was found to dip requiring 2 units of blood and a lower extremity Doppler was negative so heparin was stopped. If patient continues to have a decompensated oxygen level we will consider VQ scan. -Continue Lasix by mouth 40 for now. Patient is on spironolactone 12.5. As per cardio we increased the isosorbide dose as well. We ordered a repeat chest x- ray which showed interval decrease in her congestion. As per cardiology we ordered a noncontrast CT of the chest to elucidate further why the patient has increased oxygen requirement despite being optimized on medical therapy for CHF. Nothing else was found other than evidence of CHF. The patient has had little p.o. liquid intake and has had a bump in creatinine on Lasix, now to 3.9 on . As patient continues to have increased oxygen dependence we have put in an official fluid restriction of 1500 cc per day. Of note on most recent CT chest, patient was found to have a dilated aorta 4.2 cm gradually increasing which will need to be followed up on outpatient. -Wean from oxygen and BiPAP as able. We will encourage use of incentive spirometer. -For patient's right rib pain order a rib x-ray unilateral right side which showed subacute healing fractures involving the anterior end of the ninth through 11th ribs on the right with no pneumothorax. -As per cardiac consult the patient was started on labetalol 300 mg twice a day and as per renal, can uptitrate as needed for her blood pressure if SBP greater than 160. We continued her other blood pressure medications hydralazine 100 mg 3 times a day, amlodipine 10. We will hold patient's bystolic which she was receiving before she was admitted. We will hold giving clonidine as this could also drop her heart rates which have been around 65. We will continue minoxidil 5 mg daily by mouth. Blood pressures today are stable. -She has acute on chronic anemia. We have consulted by phone with GI who states that we should do a guaiac on the stools and let them know of any acute changes and blood count. Guaiac each time has been negative. When the patient was started on heparin, her low blood count lab returned almost within an hour starting heparin which as per Surendra Chou MD, would not be so quick to decrease. Repeat guaiac following this was negative. I have renewed the order for guaiac today to make sure the nursing checks and new guaiac as her hemoglobin has continued to fall, now to 7.2. We are still unsure of the cause of the drop in hemoglobin. We added Epogen 10,000 units weekly to her medication regimen. Also IV ferrlicet 125 mg every other day for 8 doses, patient is on her last dose. We will recommend that in a couple weeks she has her iron stores rechecked. -All troponins and EKGs have been negative for ACS. We did a troponin 3 days ago when patient had a 16 beat run of V. tach which was negative. -Daily weights, strict I's and O's, the patient was switched from Lasix 40 by mouth to IV this weekend during her acute decompensation but is now on 40 mg Lasix p.o. daily which we will continue. Of note, the patient had decreased urine output yesterday of 625 but so far today is 500. Previously her urine output has been over 1000 per shift. We will continue to strictly monitor and continue Geiger for now. -Of note patient was found to have evidence of ESBL Escherichia coli on her recent urine culture. -Echocardiogram showed at least type II diastolic dysfunction with moderate pulmonary hypertension and ejection fraction 60-65% with elevated filling pressures. -TRC nebs -Encourage low salt diet -Continue patient's other home medications including tramadol, doxazosin, multivitamin, vitamin E/D. -Encourage patient to ambulate -We will recommend patient follow up with pulmonology outpatient for sleep study -We will keep an eye on patient's right arm and left hand lesions which may be developing superficial thrombophlebitis that is post IV removal CHF diet Patient is full code DVT prophylaxis with Alps and heparin SQ Problem List: 1. Hypertensive urgency 2. Chronic kidney disease 3. Peripheral edema 4. CHF (congestive heart failure) Pain Ratin Pain Location: knees Pain Goal: Pain 4 or less Pain Plan: as needed Tomorrow's Labs & Rationales: cbc bep type and cross Jose R DUNN,Eulalia 06/07/18 1137: Attending MD Review Statement Attending Statement Attending MD Statement: examined this patient, discuss w/resident/PA/CIRCULATION TENDER, agreed w/resident/PA/CIRCULATION TENDER, reviewed EMR data (avail), discussed with nursing, discussed with case mgmt, reviewed images Attending Assessment/Plan: Patient is feeling much better. She is down to 2 L of oxygen and is sitting up in the chair. She has had a prolonged hospital course and we have been treating fluid overload and congestive heart failure with a preserved ejection fraction related to PATO on CKD. She had a Doppler done which was negative for renal artery stenosis yesterday. She is on multiple antihypertensives and will need to follow that up. I spoken to nephrology and they're going to talk to her about the prognosis of her CKD and what they think is her new baseline. We'll take out her catheter, taper oxygen, have PT work with her and hopefully discharge in the next 24-48 hours.
[2018-06-07 11:05] LABS: ABSOLUTE BASOPHIL COUNT 0 /CUMM (0.0-0.2); ABSOLUTE EOSINOPHIL COUNT 0.4 /CUMM (0.0-0.7); ABSOLUTE GRANULOCYTE CT 5.1 /CUMM (1.4-6.5); ABSOLUTE LYMPH COUNT 1.1 /CUMM (1.2-3.4); ABSOLUTE MONOCYTE COUNT 0.5 /CUMM (0.10-0.60); BASOPHIL % 0.6 % (0.0-2.0); EOSINOPHIL % 5.2 % (0-5); GRANULOCYTE % 71.8 % (42.2-75.2); HEMATOCRIT 23.4 % (37-47); MEAN CORPUSCULAR HGB 29.7 PG (27.0-31.0); MEAN CORPUSCULAR HGB CONC 31.9 G/DL (33.0-37.0); MEAN CORPUSCULAR VOLUME 93.2 FL (81.0-99.0); PLATELET COUNT 302 /CUMM (130-400); RBC DISTRIBUTION WIDTH 15.6 % (11.5-14.5); RED BLOOD CELL CT 2.51 /CUMM (4.20-5.40); WHITE BLOOD CELL COUNT 7.1 /CUMM (4.8-10.8)
--- NOTE | 2018-06-07 11:47 | PN- Nephrology ---
Assessment/Plan Nephrology Assessment: PTAO: Likely prerenal azotemia from diuretics in setting of underlying pulmonary hypertension which is a preload dependent state. Agree with temporarily holding the diuretics until her renal status proves to be more stable. There is no acute dialytic need. She will need close outpatient follow-up with our office. CKD stage 4-5: Bline creat in low 3s; followed by Dr Long at our office. Will need close outpatient f/up and education re ESRD and her dialysis options for the future. anemia of CKD: Epogen and Ferrlecit have been appropriate started. Would refer her to hematology for management of anemia of chronic disease; logistically will be difficult for her to come to our office in [place] for anemia management and would favor having hematology manage her locally. Weakness: May be due to the recent walk and her oxygen was lowered from 2 L to 1 L. O2 raised back up to 2 L. Would reassess. We'll check orthostatics. If symptoms continue she may need an additional packed RBC transfusion for symptomatically anemia. Suggestion: Hematology referral for outpatient management of anemia of chronic kidney disease She'll need to follow-up with Dr. Long on discharge Orthostatics Hold Lasix as above Discussed with internal medicine team. Will f/up tomorrow morning Subjective Subjective: Patient felt okay this morning after a walk she became more weak and lightheaded. Denies dyspnea. After the walker oxygen was lowered and O2 sat dropped to 91%, prompting the nurse to raise O2 back up to 2L from 1L. creatinine is 4.1 today which is higher than baseline. Lasix was held yesterday so last dose was Thursday. She has no edema currently. Review of Systems: No fever or chills No dizziness no issues urinating Objective Vital Signs and I&Os Vital Signs Date Time Temp Pulse Resp B/P B/P Pulse O2 O2 Flow FiO2 Mean Ox Delivery Rate 06/07 0944 75 160/50 06/07 0942 75 160/50 06/07 0941 75 160/50 06/07 0939 75 160/50 06/07 0645 98.2 75 20 160/50 97 Nasal 3.0L Cannula 06/07 0015 74 94 06/07 0000 Nasal 2.0L Cannula 06/06 2232 74 92 06/06 2231 93 CPAP 3.0L 06/06 2154 97.5 75 18 160/58 94 Nasal Cannula 06/06 2116 72 160/58 06/06 2116 72 160/58 06/06 1600 Nasal 3.0L Cannula 06/06 1452 59 138/54 06/06 1441 98.7 59 20 138/54 95 06/06 1224 92 Nasal 2.0L Cannula 06/06 1204 74 170/72 06/06 1203 74 170/72 06/06 1202 74 170/72 06/06 1201 72 170/72 Intake & Output 06/07 1600 06/07 0400 06/06 1600 06/06 0400 06/05 1600 06/05 0400 Intake Total 350 460 300 300 250 Output Total 276 200 525 125 650 225 Balance -276 150 -65 175 -350 25 Intake, IV 110 Intake, Oral 350 350 300 300 250 Number 0 0 Bowel Movements Output, Stool 1 Output, Urine 275 200 525 125 650 225 Patient 209 lb 196 lb Weight Weight Bed scale Measurement Method Physical Exam: General: NAD, A+O x3. HEENT: NC/AT. No icterus. Moist mucosa +pallor Neck: negative for BAN, JVD CV: RRR, no m/r/g Pulm: CTAB, no rales Abd: soft, NT Lower Ext: neg edema. +chronic venous changes Upper Ext: no AVFs or AVGs Back: negative for CVA tenderness Neuro: neg tremor, asterixis Skin: no rash, jaundice : no strickland catheter Current Medications: Current Medications Sig/Duong Start time Last Medication Dose Route Stop Time Status Admin Acetaminophen 325 MG Q6P PRN 05/25 1500 AC 06/01 PO 2127 Albuterol Sulfate 3 ML Q4P PRN 05/24 1300 AC 05/29 INH 0309 Amlodipine Besylate 10 MG DAILY 05/24 1133 AC 06/07 PO 0944 Aspirin 81 MG DAILY 05/24 1133 AC 06/07 PO 0941 Cholecalciferol 1,000 IU DAILY 05/24 1133 AC 06/07 PO 0944 Doxazosin Mesylate 4 MG DAILY 05/24 1134 AC 06/07 PO 0943 Epoetin Ld 10,000 UNITS ONCE A WEEK 06/03 1215 AC 06/03 SC 1300 Ferric Sodium 125 MG Q48H 05/29 0900 AC 06/06 Gluconate Complex IV 06/10 0959 1255 Sodium Chloride 100 ML Hydralazine HCl 100 MG TID 05/24 1400 AC 06/07 PO 0939 Isosorbide 90 MG DAILY 06/01 0900 AC 06/07 Mononitrate PO 0942 Labetalol HCl 300 MG BID 05/24 1800 AC 06/07 PO 0941 Minoxidil 5 MG DAILY 06/02 1417 AC 06/07 PO 0940 Multivitamins 1 TAB DAILY 05/24 1136 AC 06/07 Therapeutic PO 0940 Polyethylene Glycol 17 GM DAILY 05/27 1401 AC 06/07 PO 0941 Pravastatin Sodium 20 MG 1700 05/24 1700 AC 06/06 PO 1651 Senna/Docusate Sodium 1 TAB BID PRN 05/27 1415 AC 05/27 PO 1426 Sevelamer Carbonate 800 MG WM 05/24 1200 AC 06/07 PO 0900 Vitamin E 200 IU DAILY 05/24 1138 AC 06/07 PO 0944 Results Pertinent Lab Results: Laboratory Tests 06/07 06/06 0915 0815 Chemistry Sodium (137 - 145 mmol/L) 145 146 H Potassium (3.5 - 5.1 mmol/L) 4.9 4.8 Chloride (98 - 107 mmol/L) 107 106 Carbon Dioxide (22 - 30 mmol/L) 26 27 Anion Gap (5 - 16) 13 13 BUN (7 - 17 mg/dL) 58 H 57 H Creatinine (0.5 - 1.0 mg/dL) 4.1 H 4.0 H Estimated GFR (>60 ml/min) 11 L 11 L BUN/Creatinine Ratio (7 - 25 %) 14.1 14.3 Hematology CBC w Diff NO MAN DIFF REQ NO MAN DIFF REQ WBC (4.8 - 10.8 /CUMM) 7.1 6.7 RBC (4.20 - 5.40 /CUMM) 2.51 L 2.45 L Hgb (12.0 - 16.0 G/DL) 7.5 L 7.2 *L Hct (37 - 47 %) 23.4 L 23.1 L MCV (81.0 - 99.0 FL) 93.2 94.3 MCH (27.0 - 31.0 PG) 29.7 29.4 MCHC (33.0 - 37.0 G/DL) 31.9 L 31.2 L RDW (11.5 - 14.5 %) 15.6 H 15.6 H Plt Count (130 - 400 /CUMM) 302 266 MPV (7.4 - 10.4 FL) 9.0 9.1 Gran % (42.2 - 75.2 %) 71.8 65.6 Lymphocytes % (20.5 - 51.1 %) 15.1 L 19.0 L Monocytes % (1.7 - 9.3 %) 7.3 9.0 Eosinophils % (0 - 5 %) 5.2 H 5.5 H Basophils % (0.0 - 2.0 %) 0.6 0.9 Absolute Granulocytes (1.4 - 6.5 /CUMM) 5.1 4.4 Absolute Lymphocytes (1.2 - 3.4 /CUMM) 1.1 L 1.3 Absolute Monocytes (0.10 - 0.60 /CUMM) 0.5 0.6 Absolute Eosinophils (0.0 - 0.7 /CUMM) 0.4 0.4 Absolute Basophils (0.0 - 0.2 /CUMM) 0 0.1 06/05 0635 Chemistry Sodium (137 - 145 mmol/L) 145 Potassium (3.5 - 5.1 mmol/L) 4.8 Chloride (98 - 107 mmol/L) 106 Carbon Dioxide (22 - 30 mmol/L) 29 Anion Gap (5 - 16) 10 BUN (7 - 17 mg/dL) 51 H Creatinine (0.5 - 1.0 mg/dL) 3.9 H Estimated GFR (>60 ml/min) 11 L BUN/Creatinine Ratio (7 - 25 %) 13.1 Hematology CBC w Diff NO MAN DIFF REQ WBC (4.8 - 10.8 /CUMM) 7.2 RBC (4.20 - 5.40 /CUMM) 2.46 L Hgb (12.0 - 16.0 G/DL) 7.2 *L Hct (37 - 47 %) 23.0 L MCV (81.0 - 99.0 FL) 93.5 MCH (27.0 - 31.0 PG) 29.4 MCHC (33.0 - 37.0 G/DL) 31.4 L RDW (11.5 - 14.5 %) 15.5 H Plt Count (130 - 400 /CUMM) 275 MPV (7.4 - 10.4 FL) 9.1 Gran % (42.2 - 75.2 %) 69.1 Lymphocytes % (20.5 - 51.1 %) 16.4 L Monocytes % (1.7 - 9.3 %) 8.6 Eosinophils % (0 - 5 %) 4.7 Basophils % (0.0 - 2.0 %) 1.2 Absolute Granulocytes (1.4 - 6.5 /CUMM) 5.0 Absolute Lymphocytes (1.2 - 3.4 /CUMM) 1.2 Absolute Monocytes (0.10 - 0.60 /CUMM) 0.6 Absolute Eosinophils (0.0 - 0.7 /CUMM) 0.3 Absolute Basophils (0.0 - 0.2 /CUMM) 0.1
[2018-06-07 14:22] VITALS: BP 128/62
--- NOTE | 2018-06-07 18:03 | PN- Cardiology ---
Subjective Subjective: Patient denies chest pain, palpitations, dyspnea. Patient did not ambulate today, but reports exertional dyspnea is improved. Objective Vital Signs and I&Os Vital Signs Date Time Temp Pulse Resp B/P B/P Pulse O2 O2 Flow FiO2 Mean Ox Delivery Rate 06/07 1422 98.3 69 20 128/62 92 Nasal 2.0L Cannula 06/07 1412 75 160/50 06/07 0944 75 160/50 06/07 0942 75 160/50 06/07 0941 75 160/50 06/07 0939 75 160/50 06/07 0800 Nasal 3.0L Cannula 06/07 0645 98.2 75 20 160/50 97 Nasal 3.0L Cannula 06/07 0015 74 94 06/07 0000 Nasal 2.0L Cannula 06/06 2232 74 92 06/06 2231 93 CPAP 3.0L 06/06 2154 97.5 75 18 160/58 94 Nasal Cannula 06/06 2116 72 160/58 06/06 2116 72 160/58 Intake & Output 06/07 1600 06/07 0800 06/07 0000 06/06 1600 06/06 0800 06/06 0000 Intake Total 400 350 410 50 300 Output Total 250 276 200 300 225 125 Balance -250 124 150 110 -175 175 Intake, IV 110 Intake, Oral 400 350 300 50 300 Number 0 Bowel Movements Output, Stool 1 Output, Urine 250 275 200 300 225 125 Patient 94.999 kg Weight Weight Bed scale Measurement Method Physical Exam: General: no apparent distress HEENT: NCAT, NO JVD Heart: s1s2, RRR, +2/6 pansystolic murmur at base Lungs: CTA b/l Abd: soft, nt Ext: trace lower extremity pitting edema bilaterally Current Medications: Current Medications Sig/Duong Start time Last Medication Dose Route Stop Time Status Admin Acetaminophen 325 MG Q6P PRN 05/25 1500 AC 06/01 PO 2127 Albuterol Sulfate 3 ML Q4P PRN 05/24 1300 AC 05/29 INH 0309 Amlodipine Besylate 10 MG DAILY 05/24 1133 AC 06/07 PO 0944 Aspirin 81 MG DAILY 05/24 1133 AC 06/07 PO 0941 Cholecalciferol 1,000 IU DAILY 05/24 1133 AC 06/07 PO 0944 Doxazosin Mesylate 4 MG DAILY 05/24 1134 AC 06/07 PO 0943 Epoetin Ld 10,000 UNITS ONCE A WEEK 06/03 1215 AC 06/03 SC 1300 Ferric Sodium 125 MG Q48H 05/29 0900 AC 06/06 Gluconate Complex IV 06/10 09 1255 Sodium Chloride 100 ML Hydralazine HCl 100 MG TID 05/24 1400 AC 06/07 PO 1412 Isosorbide 90 MG DAILY 06/01 0900 AC 06/07 Mononitrate PO 0942 Labetalol HCl 300 MG BID 05/24 1800 AC 06/07 PO 0941 Minoxidil 5 MG DAILY 06/02 1417 AC 06/07 PO 0940 Multivitamins 1 TAB DAILY 05/24 1136 AC 06/07 Therapeutic PO 0940 Polyethylene Glycol 17 GM DAILY 05/27 1401 AC 06/07 PO 0941 Pravastatin Sodium 20 MG 1700 05/24 1700 AC 06/07 PO 1742 Senna/Docusate Sodium 1 TAB BID PRN 05/27 1415 AC 05/27 PO 1426 Sevelamer Carbonate 800 MG WM 05/24 1200 AC 06/07 PO 1741 Vitamin E 200 IU DAILY 05/24 1138 AC 06/07 PO 0944 Results Last 48 Hrs of Labs/Mics: Laboratory Tests 06/07/18 0915: Anion Gap 13, Estimated GFR 11 L, BUN/Creatinine Ratio 14.1, CBC w Diff NO MAN DIFF REQ, RBC 2.51 L, MCV 93.2, MCH 29.7, MCHC 31.9 L, RDW 15.6 H, MPV 9.0, Gran % 71.8, Lymphocytes % 15.1 L, Monocytes % 7.3, Eosinophils % 5.2 H, Basophils % 0.6, Absolute Granulocytes 5.1, Absolute Lymphocytes 1.1 L, Absolute Monocytes 0.5, Absolute Eosinophils 0.4, Absolute Basophils 0 06/06/18 0815: Anion Gap 13, Estimated GFR 11 L, BUN/Creatinine Ratio 14.3, CBC w Diff NO MAN DIFF REQ, RBC 2.45 L, MCV 94.3, MCH 29.4, MCHC 31.2 L, RDW 15.6 H, MPV 9.1, Gran % 65.6, Lymphocytes % 19.0 L, Monocytes % 9.0, Eosinophils % 5.5 H, Basophils % 0.9, Absolute Granulocytes 4.4, Absolute Lymphocytes 1.3, Absolute Monocytes 0.6, Absolute Eosinophils 0.4, Absolute Basophils 0.1 Recent Imaging Studies: Telemetry personally reviewed, normal sinus rhythm Abd US: 1. No sonographic evidence of renal artery stenosis by velocity criteria. 2. Abdominal aortic aneurysm measuring up to 4 cm, similar to the prior abdominal CT from 05/25/2017 Assessment/Plan Assessment/Plan 1. Hypertensive urgency 2. Acute on chronic heart failure with preserved ejection fraction 3. Chronic kidney disease 4. History of mild aortic stenosis 5. Sleep apnea 6. Chronic venous insufficiency 7. Hyperlipidemia 8. Chronic anemia s/p 2Units PRBCs 9. Asymptomatic nonsustained wide complex run on telemetry 10. Mild aortic dilatation Patient is clinically improved. Blood pressure this afternoon is well controlled. Continue with current anti-potential regimen. Follow-up with nephrology. Continue telemetry? Yes
[2018-06-07 22:12] VITALS: BP 120/80
[2018-06-08 06:49] VITALS: BP 110/50
[2018-06-08 07:48] LABS: ABSOLUTE EOSINOPHIL COUNT 0.3 /CUMM (0.0-0.7); ABSOLUTE GRANULOCYTE CT 4.6 /CUMM (1.4-6.5)
--- NOTE | 2018-06-08 08:04 | PN- Housestaff ---
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 She is upset that she is not getting better and still remains in the hospital after 2 weeks. Her vitals overnight have been stable and she continues to be on 3 L of oxygen. Her lower extremity edema has increased. The patient is still on a 1500 cc fluid restriction and notes that she does not drink anywhere near that. Review of Systems Constitutional: Reports: no symptoms. EENTM: Reports: no symptoms. Cardiovascular: Reports: peripheral edema. Respiratory: Reports: no symptoms. Gastrointestinal: Reports: no symptoms. Musculoskeletal: Reports: no symptoms. Skin: Reports: no symptoms. Neurological/Psychological: Reports: see HPI. Objective Last 24 Hrs of Vital Signs/I&O Vital Signs Date Time Temp Pulse Resp B/P B/P Pulse O2 O2 Flow FiO2 Mean Ox Delivery Rate 06/08 1531 98.6 68 20 146/88 90 06/08 1442 98.6 64 20 124/58 92 Nasal 2.0L Cannula 06/08 1439 124/58 06/08 0926 63 144/58 06/08 0926 63 144/58 06/08 0926 63 144/58 06/08 0800 92 Nasal 2.0L Cannula 06/08 0649 97.0 67 17 110/50 90 06/08 0104 68 92 06/08 0000 CPAP 06/07 2243 85 94 06/07 2212 98.3 74 21 120/80 86 06/07 2202 45 120/80 06/07 2202 45 120/80 Intake & Output 06/08 1600 06/08 0800 06/08 0000 Intake Total 800 100 Output Total 200 200 125 Balance 600 -100 -125 Intake, Blood 300 Product Intake, Oral 500 100 Number 2 1 Bowel Movements Output, Urine 200 200 125 Patient 202 lb Weight Physical Exam General Appearance: Alert, Oriented X3, Cooperative, No Acute Distress Skin: No Rashes Skin Temp/Moisture Exam: Warm/Dry HEENT: Atraumatic, PERRLA Cardiovascular: Regular Rate, Normal S1, Normal S2 Lungs: Clear to Auscultation, Normal Air Movement Abdomen: Normal Bowel Sounds, Soft, No Tenderness Neurological: Normal Speech Extremities: No Clubbing, No Cyanosis, Normal Pulses, No Tenderness/Swelling Vascular: Normal Pulses Current Medications: Current Medications Sig/Duong Start time Last Medication Dose Route Stop Time Status Admin Acetaminophen 325 MG Q6P PRN 05/25 1500 AC 06/01 PO 2127 Albuterol Sulfate 3 ML Q4P PRN 05/24 1300 AC 05/29 INH 0309 Amlodipine Besylate 10 MG DAILY 05/24 1133 AC 06/08 PO 0926 Aspirin 81 MG DAILY 05/24 1133 AC 06/08 PO 0926 Cholecalciferol 1,000 IU DAILY 05/24 1133 AC 06/08 PO 0927 Doxazosin Mesylate 4 MG DAILY 05/24 1134 AC 06/08 PO 0926 Epoetin Ld 10,000 UNITS ONCE A WEEK 06/03 1215 AC 06/03 SC 1300 Ferric Sodium 125 MG Q48H 05/29 0900 AC 06/06 Gluconate Complex IV 06/10 0959 1255 Sodium Chloride 100 ML Furosemide 40 MG ONCE ONE 06/08 1200 DC 06/08 IV 06/08 1201 1544 Hydralazine HCl 100 MG TID 05/24 1400 AC 06/08 PO 1439 Isosorbide 90 MG DAILY 06/01 0900 AC 06/08 Mononitrate PO 0926 Labetalol HCl 300 MG BID 05/24 1800 AC 06/08 PO 0926 Minoxidil 5 MG DAILY 06/02 1417 AC 06/08 PO 0926 Multivitamins 1 TAB DAILY 05/24 1136 AC 06/08 Therapeutic PO 0926 Polyethylene Glycol 17 GM DAILY 05/27 1401 AC 06/08 PO 0925 Pravastatin Sodium 20 MG 1700 05/24 1700 AC 06/07 PO 1742 Senna/Docusate Sodium 1 TAB BID PRN 05/27 1415 AC 05/27 PO 1426 Sevelamer Carbonate 800 MG WM 05/24 1200 AC 06/08 PO 1245 Vitamin E 200 IU DAILY 05/24 1138 AC 06/08 PO 0925 Last 24 Hrs of Lab/Ray Results Last 24 Hrs of Labs/Mics: Laboratory Tests 06/08/18 0635: Anion Gap 13, Estimated GFR 10 L, BUN/Creatinine Ratio 13.6, CBC w Diff NO MAN DIFF REQ, RBC 2.38 L, MCV 93.8, MCH 29.9, MCHC 31.8 L, RDW 15.4 H, MPV 8.7, Gran % 67.4, Lymphocytes % 17.5 L, Monocytes % 9.1, Eosinophils % 5.0, Basophils % 1.0, Absolute Granulocytes 4.6, Absolute Lymphocytes 1.2, Absolute Monocytes 0.6, Absolute Eosinophils 0.3, Absolute Basophils 0.1 Assessment/Plan Assessment: This is a 77-year-old female with a past medical history of CKD stage IV, anemia , hypertension, CHF, hyperlipidemia, chronic venous insufficiency, that comes in to see us for 2 weeks of worsening dyspnea at rest and exertion, lower extremity edema, mild left chest pressure worse on exertion, and hypertension on BP log book. Her blood pressure was recently increased from 5 mg to 10 mg but she has continued to have high blood pressures for the past month, sometimes in the low 200s. She is usually on 40 mg of Lasix daily but has continued to have lower extremity edema and complains now of orthopnea. Her last echocardiogram showed stage I diastolic dysfunction but preserved ejection fraction. On physical exam , the patient is using her accessory muscles of breathing and notes worsening shortness of breath when walking to the bathroom. In the ED, her vitals showed temperature 98.6, heart rate 111, respiratory rate 20, blood pressure 211/100 which decreased to 172/74 with 10 mg hydralazine push. Oxygen saturation at admission was 85% on room air which increased to 94% on 2 L and with IV Lasix 80 mg. On the floors, patient had a repeat blood pressure done which showed 240/100 in the left arm and 220/100 in the right arm. Her labs showed anemia with a hemoglobin of 8.6 which is baseline for her, mild hypernatremia of 146, BUN of 41, creatinine 2.9 which is chronic for her. Troponin was negative, proBNP was 17,800. LFTs were normal. Chest x-ray showed mildly increasing perihilar interstitial prominence concerning for developing congestion. In the ED, the patient was given hydralazine push 10 mg, Lasix 80 mg IV, Tylenol , Nitro-Bid Assessment -Mild chest pressure rule out ACS -Acute hypoxic respiratory failure secondary to CHF exacerbation versus pulmonary embolism versus as yet undiagnosed pulmonary pathology. -Hypertensive urgency -Stage IV CKD - proteinuria likely secondary to diabetic neuropathy and hypertensive nephrosclerosis -Chronic anemia -Mild hypernatremia -righ rib pain -Evidence of UTI on urinary culture ESBL -Thrombophlebitis PLAN: Acute hypoxic respiratory failure: There was some concern for a PE as her d- dimer was elevated last weekend and she was started on heparin. However her blood count was found to dip requiring 2 units of blood and a lower extremity Doppler was negative so heparin was stopped. As per cardiology we ordered a noncontrast CT of the chest to elucidate further why the patient has increased oxygen requirement despite being optimized on medical therapy for CHF. Nothing else was found other than evidence of CHF. * If patient continues to have a decompensated oxygen level we will consider VQ scan. * D/C lasix due to Cr * Con't isosorbide at increased level from home dose * fluid restriction of 1500 cc per day; may have to liberalize given Cr. But at this time I just held the lasix and held off giving any fluids in hope her Cr. would improve without further insult. * Echocardiogram showed at least type II diastolic dysfunction with moderate pulmonary hypertension and ejection fraction 60-65% with elevated filling pressures. Hypertensive urgency: * Patient was started on labetalol 300 mg twice a day and as per renal, can uptitrate as needed for her blood pressure if SBP greater than 160. * continued hydralazine 100 mg 3 times a day, amlodipine 10. * We will continue minoxidil 5 mg daily by mouth. Blood pressures today are stable. Stage IV CKD: proteinuria likely secondary to diabetic neuropathy and hypertensive nephrosclerosis. Cr worsening daily, now above 4. * Consulted with nephrology who have discussed placement of AvF with the patient and vascular surgeon Dr. Paredes for potential dialysis. Patient is opposed to home dialysis but is amenable to dialysis center. Acute on chronic anemia: * Patient given one unit of blood yesterday for dip in Hb. Given two units last week for dip around the same time heparin started. Lasix 40mg IV to follow unit of blood. * We added Epogen 10,000 units weekly to her medication regimen. * Also IV ferrlicet 125 mg every other day for 8 doses, patient is on her last dose. * We will recommend that in a couple weeks she has her iron stores rechecked. * Multiple times guiac negative Thrombophlebitis: We will keep an eye on patient's right arm and left hand lesions which may be developing superficial thrombophlebitis that is post IV removal Dilated aorta: 4.2 cm gradually increasing which will need to be followed up on outpatient. Evidence of UTI on urinary culture ESBL: colonization. Geiger removed. Continue patient's other home medications including tramadol, doxazosin, multivitamin, vitamin E/D. We will recommend patient follow up with pulmonology outpatient for sleep study CHF diet Patient is full code DVT prophylaxis with Alps and heparin SQ Problem List: 1. Hypertensive urgency 2. CHF (congestive heart failure) 3. Peripheral edema 4. Chronic kidney disease Pain Ratin Pain Location: na Pain Goal: Remain pain free Pain Plan: na Tomorrow's Labs & Rationales: cbc bep cbc 8pm Eulalia Odell MD 06/08/18 1140: Attending MD Review Statement Attending Statement Attending MD Statement: examined this patient, discuss w/resident/PA/GAMING DEALER, agreed w/resident/PA/GAMING DEALER, reviewed EMR data (avail), discussed with nursing, reviewed images Attending Assessment/Plan: Patient's creatinine is worse today at 60/4.4 and her anemia is also worse at . I spoke to nephrology. At this point we will give her 1 unit of blood with Lasix IV afterwards. If her creatinine continues to worsen she will likely need dialysis as an inpatient. Nephrology will call vascular for access with a fistula or graft for long-term as an outpatient and will closely follow her numbers. I spoke to cardiology and we are going to discontinue telemetry. We are going to taper off her oxygen as tolerated and follow closely. Attending MD Statement: examined this patient, discuss w/resident/PA/GAMING DEALER, agreed w/resident/PA/GAMING DEALER, reviewed EMR data (avail), discussed with nursing, reviewed images Attending Assessment/Plan: Patient's creatinine is worse today at 60/4.4 and her anemia is also worse at . I spoke to nephrology. At this point we will give her 1 unit of blood with Lasix IV afterwards. If her creatinine continues to worsen she will likely need dialysis as an inpatient. Nephrology will call vascular for access with a fistula or graft for long-term as an outpatient and will closely follow her numbers. I spoke to cardiology and we are going to discontinue telemetry. We are going to taper off her oxygen as tolerated and follow closely.
[2018-06-08 08:09] LABS: ABSOLUTE BASOPHIL COUNT 0.1 /CUMM (0.0-0.2); ABSOLUTE LYMPH COUNT 1.2 /CUMM (1.2-3.4); ABSOLUTE MONOCYTE COUNT 0.6 /CUMM (0.10-0.60); GRANULOCYTE % 67.4 % (42.2-75.2); MEAN CORPUSCULAR HGB 29.9 PG (27.0-31.0); MEAN CORPUSCULAR HGB CONC 31.8 G/DL (33.0-37.0); MEAN CORPUSCULAR VOLUME 93.8 FL (81.0-99.0); MEAN PLATELET VOLUME 8.7 FL (7.4-10.4); PLATELET COUNT 306 /CUMM (130-400); RBC DISTRIBUTION WIDTH 15.4 % (11.5-14.5); RED BLOOD CELL CT 2.38 /CUMM (4.20-5.40); WHITE BLOOD CELL COUNT 6.8 /CUMM (4.8-10.8)
[2018-06-08 08:16] LABS: HEMATOCRIT 22.4 % (37-47)
--- NOTE | 2018-06-08 11:23 | PN- Cardiology ---
Subjective Subjective: Patient feels well overall. She is upset about being told of the news of possibly requiring dialysis in the future Review of Systems: Eyes no blurred or double vision Ears no deafness or ringing Nose and throat no recurrent sinusitis Lungs per history of present illness Heart per history of present illness Abdomen no nausea vomiting Musculoskeletal occasional muscle and joint pains Psych no anxiety or depression Neuro without recurrent headache or seizures Endocrine no heat or cold intolerance Objective Vital Signs and I&Os Vital Signs Date Time Temp Pulse Resp B/P B/P Pulse O2 O2 Flow FiO2 Mean Ox Delivery Rate 06/08 926 63 144/58 06/08 926 63 144/58 06/08 926 63 144/58 06/08 0649 97.0 67 17 110/50 90 06/08 0104 68 92 06/08 0000 CPAP 06/07 2243 85 94 06/07 2212 98.3 74 21 120/80 86 06/07 2202 45 120/80 06/07 2202 45 120/80 06/07 1600 Nasal 3.0L Cannula 06/07 1422 98.3 69 20 128/62 92 Nasal 2.0L Cannula 06/07 1412 75 160/50 Intake & Output 06/08 1600 06/08 0800 06/08 0000 06/07 1600 06/07 0800 06/07 0000 Intake Total 100 400 350 Output Total 200 125 250 276 200 Balance -100 -125 -250 124 150 Intake, Oral 100 400 350 Number 1 Bowel Movements Output, Stool 1 Output, Urine 200 125 250 275 200 Patient 202 lb 209 lb Weight Weight Bed scale Measurement Method Physical Exam: Patient is a well-developed well-nourished female appearing in no acute distress HEENT is unremarkable Neck is supple there is no JVD Lungs are clear Heart regular rhythm S1 and S2 are normal no gallops or rubs 2/6 systolic ejection murmur at the right upper sternal border Abdomen bowel sounds positive Extremities without edema Current Medications: Current Medications Sig/Duong Start time Last Medication Dose Route Stop Time Status Admin Acetaminophen 325 MG Q6P PRN 05/25 1500 AC 06/01 PO 212 Albuterol Sulfate 3 ML Q4P PRN 05/24 1300 AC 05/29 INH 0309 Amlodipine Besylate 10 MG DAILY 05/24 1133 AC 06/08 PO 09 Aspirin 81 MG DAILY 05/24 1133 AC 06/08 PO 09 Cholecalciferol 1,000 IU DAILY 05/24 1133 AC 06/08 PO 0927 Doxazosin Mesylate 4 MG DAILY 05/24 1134 AC 06/08 PO 0926 Epoetin Ld 10,000 UNITS ONCE A WEEK 06/03 1215 AC 06/03 SC 1300 Ferric Sodium 125 MG Q48H 05/29 0900 AC 06/06 Gluconate Complex IV 06/10 0959 1255 Sodium Chloride 100 ML Furosemide 40 MG ONCE ONE 06/08 1115 UNVr IV 06/08 1116 Hydralazine HCl 100 MG TID 05/24 1400 AC 06/08 PO 0925 Isosorbide 90 MG DAILY 06/01 0900 AC 06/08 Mononitrate PO 09 Labetalol HCl 300 MG BID 05/24 1800 AC 06/08 PO 0926 Minoxidil 5 MG DAILY 06/02 1417 AC 06/08 PO 0926 Multivitamins 1 TAB DAILY 05/24 1136 AC 06/08 Therapeutic PO 0926 Polyethylene Glycol 17 GM DAILY 05/27 1401 AC 06/08 PO 0925 Pravastatin Sodium 20 MG 1700 05/24 1700 AC 06/07 PO 1742 Senna/Docusate Sodium 1 TAB BID PRN 05/27 1415 AC 05/27 PO 1426 Sevelamer Carbonate 800 MG WM 05/24 1200 AC 06/08 PO 0804 Vitamin E 200 IU DAILY 05/24 1138 AC 06/08 PO 0925 Results Last 48 Hrs of Labs/Mics: Laboratory Tests 06/08/18 0635: Anion Gap 13, Estimated GFR 10 L, BUN/Creatinine Ratio 13.6, CBC w Diff NO MAN DIFF REQ, RBC 2.38 L, MCV 93.8, MCH 29.9, MCHC 31.8 L, RDW 15.4 H, MPV 8.7, Gran % 67.4, Lymphocytes % 17.5 L, Monocytes % 9.1, Eosinophils % 5.0, Basophils % 1.0, Absolute Granulocytes 4.6, Absolute Lymphocytes 1.2, Absolute Monocytes 0.6, Absolute Eosinophils 0.3, Absolute Basophils 0.1 06/07/18 0915: Anion Gap 13, Estimated GFR 11 L, BUN/Creatinine Ratio 14.1, CBC w Diff NO MAN DIFF REQ, RBC 2.51 L, MCV 93.2, MCH 29.7, MCHC 31.9 L, RDW 15.6 H, MPV 9.0, Gran % 71.8, Lymphocytes % 15.1 L, Monocytes % 7.3, Eosinophils % 5.2 H, Basophils % 0.6, Absolute Granulocytes 5.1, Absolute Lymphocytes 1.1 L, Absolute Monocytes 0.5, Absolute Eosinophils 0.4, Absolute Basophils 0 Telemetry personally reviewed sinus rhythm sinus bradycardia Assessment/Plan Assessment/Plan 1. Hypertensive urgency blood pressure is now stabilized 2. Acute on chronic heart failure with preserved ejection fraction 3. Chronic kidney disease 4. History of mild aortic stenosis 5. Sleep apnea 6. Chronic venous insufficiency 7. Hyperlipidemia 8. Chronic anemia s/p 2Units PRBCs 9. Asymptomatic nonsustained wide complex run on telemetry 10. Mild aortic dilatation Recommendations 1. Continue current medications 2. Appreciate nephrology input 3. Will discontinue telemetry Continue telemetry? No
--- NOTE | 2018-06-08 11:36 | PN- Nephrology ---
Assessment/Plan Nephrology Assessment: PATO: May be prerenal from anemia, suboptimal PO in setting of pulm HTN. However edema re-developing which is a barrier to IVFs. Suggest 1 unit PRBC transfusion today with 40 mg IV lasix and repeat labs in AM. No acute dialytic need but she may require during this hospital stay & at very least should have a plan in place for impending ESRD (ie AVF creation). CKD stage 4-5: Bline creat in low 3s; followed by Dr Long at our office. I spent time educating her regarding her ESRD options. She is not at all interetested in home dialysis, but is open to in-center 3x/week HD. I consulted her vascular surgeon Dr Paredes for eval for AVF creation. anemia of CKD: Epogen and Ferrlecit have been appropriately started. Would refer her to hematology for management of anemia of chronic disease; logistically will be difficult for her to come to our office in [place] for anemia management and would favor having hematology manage her locally. Once starts HD then can easily receive epo/IV iron with HD. symptomatic anemia: on epo/ferrlecit. transfuse 1 unit PRBCs today. Check stool guiacs. Suggestion: 1 unit PRBC transfusion today with 40 mg lasix repeat renal labs in AM Dr Paredes consulted for eval for AVF creation Dr Smallwood will f/up in AM stool guiacs contine epogen/ferrlecit as well check post void bladder scan to confirm no retention Subjective Subjective: Continues to feel weak Edema which had resolved yesterday is recurring today good PO intake Review of Systems: no fever/chills no chest pain +weakness, +PRESTON Objective Vital Signs and I&Os Vital Signs Date Time Temp Pulse Resp B/P B/P Pulse O2 O2 Flow FiO2 Mean Ox Delivery Rate 06/08 926 63 144/58 06/08 0926 63 144/58 06/08 09 63 144/58 06/08 0649 97.0 67 17 110/50 90 06/08 0104 68 92 06/08 0000 CPAP 06/07 2243 85 94 06/07 221 98.3 74 21 120/80 86 06/07 2202 45 120/80 06/07 2202 45 120/80 06/07 1600 Nasal 3.0L Cannula 06/07 1422 98.3 69 20 128/62 92 Nasal 2.0L Cannula 06/07 1412 75 160/50 Intake & Output 06/08 1600 06/08 0400 06/07 1600 06/07 0400 06/06 1600 06/06 0400 Intake Total 100 400 350 460 300 Output Total 200 125 526 200 525 125 Balance -100 -125 -126 150 -65 175 Intake, IV 110 Intake, Oral 100 400 350 350 300 Number 1 0 Bowel Movements Output, Stool 1 Output, Urine 200 125 525 200 525 125 Patient 202 lb 209 lb Weight Weight Bed scale Measurement Method Physical Exam: NAD +conj pallor 1+ pitting edema obese NT dec BS bases S1 S2 Current Medications: Current Medications Sig/Duong Start time Last Medication Dose Route Stop Time Status Admin Acetaminophen 325 MG Q6P PRN 05/25 1500 AC 06/01 PO 2127 Albuterol Sulfate 3 ML Q4P PRN 05/24 1300 AC 05/29 INH 0309 Amlodipine Besylate 10 MG DAILY 05/24 1133 AC 06/08 PO 0926 Aspirin 81 MG DAILY 05/24 1133 AC 06/08 PO 0926 Cholecalciferol 1,000 IU DAILY 05/24 1133 AC 06/08 PO 0927 Doxazosin Mesylate 4 MG DAILY 05/24 1134 AC 06/08 PO 0926 Epoetin Ld 10,000 UNITS ONCE A WEEK 06/03 1215 AC 06/03 SC 1300 Ferric Sodium 125 MG Q48H 05/29 0900 AC 06/06 Gluconate Complex IV 06/10 0959 1255 Sodium Chloride 100 ML Furosemide 40 MG ONCE ONE 06/08 1200 AC IV 06/08 1201 Hydralazine HCl 100 MG TID 05/24 1400 AC 06/08 PO 0925 Isosorbide 90 MG DAILY 06/01 0900 AC 06/08 Mononitrate PO 0926 Labetalol HCl 300 MG BID 05/24 1800 AC 06/08 PO 0926 Minoxidil 5 MG DAILY 06/02 1417 AC 06/08 PO 0926 Multivitamins 1 TAB DAILY 05/24 1136 AC 06/08 Therapeutic PO 0926 Polyethylene Glycol 17 GM DAILY 05/27 1401 AC 06/08 PO 0925 Pravastatin Sodium 20 MG 1700 05/24 1700 AC 06/07 PO 1742 Senna/Docusate Sodium 1 TAB BID PRN 05/27 1415 AC 05/27 PO 1426 Sevelamer Carbonate 800 MG WM 05/24 1200 AC 06/08 PO 0804 Vitamin E 200 IU DAILY 05/24 1138 AC 06/08 PO 0925 Results Pertinent Lab Results: Laboratory Tests 06/08 06/07 0635 0915 Chemistry Sodium (137 - 145 mmol/L) 146 H 145 Potassium (3.5 - 5.1 mmol/L) 5.0 4.9 Chloride (98 - 107 mmol/L) 106 107 Carbon Dioxide (22 - 30 mmol/L) 27 26 Anion Gap (5 - 16) 13 13 BUN (7 - 17 mg/dL) 60 H 58 H Creatinine (0.5 - 1.0 mg/dL) 4.4 H 4.1 H Estimated GFR (>60 ml/min) 10 L 11 L BUN/Creatinine Ratio (7 - 25 %) 13.6 14.1 Hematology CBC w Diff NO MAN DIFF REQ NO MAN DIFF REQ WBC (4.8 - 10.8 /CUMM) 6.8 7.1 RBC (4.20 - 5.40 /CUMM) 2.38 L 2.51 L Hgb (12.0 - 16.0 G/DL) 7.1 *L 7.5 L Hct (37 - 47 %) 22.4 L 23.4 L MCV (81.0 - 99.0 FL) 93.8 93.2 MCH (27.0 - 31.0 PG) 29.9 29.7 MCHC (33.0 - 37.0 G/DL) 31.8 L 31.9 L RDW (11.5 - 14.5 %) 15.4 H 15.6 H Plt Count (130 - 400 /CUMM) 306 302 MPV (7.4 - 10.4 FL) 8.7 9.0 Gran % (42.2 - 75.2 %) 67.4 71.8 Lymphocytes % (20.5 - 51.1 %) 17.5 L 15.1 L Monocytes % (1.7 - 9.3 %) 9.1 7.3 Eosinophils % (0 - 5 %) 5.0 5.2 H Basophils % (0.0 - 2.0 %) 1.0 0.6 Absolute Granulocytes (1.4 - 6.5 /CUMM) 4.6 5.1 Absolute Lymphocytes (1.2 - 3.4 /CUMM) 1.2 1.1 L Absolute Monocytes (0.10 - 0.60 /CUMM) 0.6 0.5 Absolute Eosinophils (0.0 - 0.7 /CUMM) 0.3 0.4 Absolute Basophils (0.0 - 0.2 /CUMM) 0.1 0 06/06 0815 Chemistry Sodium (137 - 145 mmol/L) 146 H Potassium (3.5 - 5.1 mmol/L) 4.8 Chloride (98 - 107 mmol/L) 106 Carbon Dioxide (22 - 30 mmol/L) 27 Anion Gap (5 - 16) 13 BUN (7 - 17 mg/dL) 57 H Creatinine (0.5 - 1.0 mg/dL) 4.0 H Estimated GFR (>60 ml/min) 11 L BUN/Creatinine Ratio (7 - 25 %) 14.3 Hematology CBC w Diff NO MAN DIFF REQ WBC (4.8 - 10.8 /CUMM) 6.7 RBC (4.20 - 5.40 /CUMM) 2.45 L Hgb (12.0 - 16.0 G/DL) 7.2 *L Hct (37 - 47 %) 23.1 L MCV (81.0 - 99.0 FL) 94.3 MCH (27.0 - 31.0 PG) 29.4 MCHC (33.0 - 37.0 G/DL) 31.2 L RDW (11.5 - 14.5 %) 15.6 H Plt Count (130 - 400 /CUMM) 266 MPV (7.4 - 10.4 FL) 9.1 Gran % (42.2 - 75.2 %) 65.6 Lymphocytes % (20.5 - 51.1 %) 19.0 L Monocytes % (1.7 - 9.3 %) 9.0 Eosinophils % (0 - 5 %) 5.5 H Basophils % (0.0 - 2.0 %) 0.9 Absolute Granulocytes (1.4 - 6.5 /CUMM) 4.4 Absolute Lymphocytes (1.2 - 3.4 /CUMM) 1.3 Absolute Monocytes (0.10 - 0.60 /CUMM) 0.6 Absolute Eosinophils (0.0 - 0.7 /CUMM) 0.4 Absolute Basophils (0.0 - 0.2 /CUMM) 0.1
[2018-06-08 14:42] VITALS: BP 124/58
[2018-06-08 15:31] VITALS: BP 146/88
[2018-06-08 21:36] LABS: ABSOLUTE BASOPHIL COUNT 0.1 /CUMM (0.0-0.2); ABSOLUTE EOSINOPHIL COUNT 0.3 /CUMM (0.0-0.7); ABSOLUTE GRANULOCYTE CT 5.2 /CUMM (1.4-6.5); ABSOLUTE LYMPH COUNT 1.1 /CUMM (1.2-3.4); ABSOLUTE MONOCYTE COUNT 0.6 /CUMM (0.10-0.60); BASOPHIL % 0.7 % (0.0-2.0); EOSINOPHIL % 4.5 % (0-5); GRANULOCYTE % 71.7 % (42.2-75.2); HEMATOCRIT 24.2 % (37-47); MEAN CORPUSCULAR HGB 29.9 PG (27.0-31.0); MEAN CORPUSCULAR HGB CONC 32.4 G/DL (33.0-37.0); MEAN CORPUSCULAR VOLUME 92.1 FL (81.0-99.0); PLATELET COUNT 297 /CUMM (130-400); RBC DISTRIBUTION WIDTH 16.9 % (11.5-14.5); RED BLOOD CELL CT 2.63 /CUMM (4.20-5.40); WHITE BLOOD CELL COUNT 7.2 /CUMM (4.8-10.8)
[2018-06-09 06:41] VITALS: BP 130/70
--- NOTE | 2018-06-09 07:08 | Cons- Vascular Surgery ---
General Information and HPI Consulting Request Date of Consult: 06/08/18 Requested By: Keshawn Cameron M.D. Reason for Consult: Eval for AVF creation Source of Information: patient, family, EMS, MD Exam Limitations: no limitations History of Present Illness: The pt is a 77yo right-handed female w/ HTN, CHF, CKD, NITHIN, HLD and anemia, who was recently admitted w/ SOB and LE edema. On admit her BP was severely elevated, and she noted to have worsening renal function; she has not yet started HD. She denies having a PM or AICD; no h/o breast surgery. One of her daughters is at the bedside. *I saw the pt on June 08, 2018, but wrote my note on June 09, 2018. Allergies/Medications Allergies: Coded Allergies: NO KNOWN ALLERGIES (UNKNOWN 04/24/17) Home Med List: Amlodipine Besylate 10 MG TABLET 1 TAB PO DAILY HEART (Reported) Aspirin (Children's Aspirin) 81 MG TAB.CHEW 1 TAB PO DAILY HEART HEALTH ( Reported) Cholecalciferol (Vitamin D3) 1,000 UNIT TABLET 1 TAB PO DAILY VITAMIN SUPPORT (Reported) Doxazosin Mesylate (Cardura) 4 MG TABLET 1 TAB PO DAILY HEART (Reported) Furosemide 40 MG TABLET 1 TAB PO DAILY WATER RETENTION (Reported) Hydralazine HCl 100 MG TABLET 1 TAB PO TID HIGH BLOOD PRESSURE Isosorbide Mononitrate (Isosorbide Mononitrate ER) 60 MG TAB.ER.24H 1 TAB PO DAILY HIGH BLOOD PRESSURE Labetalol HCl 100 MG TABLET 300 MG PO BID HYPERTENSION Minoxidil 2.5 MG TABLET 5 MG PO DAILY htn Multivitamin (Multiple Vitamins) 1 EACH TABLET 1 TAB PO DAILY VITAMIN SUPPORT (Reported) Nebivolol HCl (Bystolic) 10 MG TABLET 1 TAB PO DAILY HEART (Reported) Avenel-3 Fatty Acids/Fish Oil (Fish Oil 1,000 MG Capsule) 340 MG-1,000 MG CAPSULE 1 CAP PO DAILY SUPPLEMENT (Reported) Rosuvastatin Calcium (Crestor) 40 MG TABLET 1 TAB PO DAILY CHOLESTEROL ( Reported) Sevelamer Carbonate (Renvela) 800 MG TABLET 1 TAB PO WM Kidney failure Spironolactone 25 MG TABLET 0.5 TAB PO DAILY HIGH BLOOD PRESSURE Tramadol HCl 50 MG TABLET 1 TAB PO BIDP PRN PAIN (Reported) Vitamin E 200 UNIT CAPSULE 1 CAP PO DAILY SUPPLEMENT (Reported) Current Medications: Current Medications Sig/Duong Start time Last Medication Dose Route Stop Time Status Admin Acetaminophen 325 MG Q6P PRN 05/25 1500 AC 06/01 PO 2127 Albuterol Sulfate 3 ML Q4P PRN 05/24 1300 AC 05/29 INH 0309 Amlodipine Besylate 10 MG DAILY 05/24 1133 AC 06/08 PO 0926 Aspirin 81 MG DAILY 05/24 1133 AC 06/08 PO 0926 Cholecalciferol 1,000 IU DAILY 05/24 1133 AC 06/08 PO 0927 Doxazosin Mesylate 4 MG DAILY 05/24 1134 AC 06/08 PO 0926 Epoetin Ld 10,000 UNITS ONCE A WEEK 06/03 1215 AC 06/03 SC 1300 Ferric Sodium 125 MG Q48H 05/29 0900 AC 06/08 Gluconate Complex IV 06/10 0959 1805 Sodium Chloride 100 ML Furosemide 40 MG ONCE ONE 06/08 1200 DC 06/08 IV 06/08 1201 1544 Hydralazine HCl 100 MG TID 05/24 1400 AC 06/08 PO 2052 Isosorbide 90 MG DAILY 06/01 0900 AC 06/08 Mononitrate PO 0926 Labetalol HCl 300 MG BID 05/24 1800 AC 06/08 PO 2052 Minoxidil 5 MG DAILY 06/02 1417 AC 06/08 PO 0926 Multivitamins 1 TAB DAILY 05/24 1136 AC 06/08 Therapeutic PO 0926 Polyethylene Glycol 17 GM DAILY 05/27 1401 AC 06/08 PO 0925 Pravastatin Sodium 20 MG 1700 05/24 1700 AC 06/08 PO 1729 Senna/Docusate Sodium 1 TAB BID PRN 05/27 1415 AC 05/27 PO 1426 Sevelamer Carbonate 800 MG WM 05/24 1200 AC 06/08 PO 1729 Vitamin E 200 IU DAILY 05/24 1138 AC 06/08 PO 0925 Past History Medical History Blood Transfusion Hx: Yes Neurological: NONE EENT: NONE Cardiovascular: diastolic CHF, hypertension, hyperlipidemia, chronic venous insuffcny Respiratory: NONE Gastrointestinal: C.DIFF Hepatic: NONE Renal: chronic kidney disease Musculoskeletal: fracture, LUMBAR FX Psychiatric: NONE Endocrine: NONE Blood Disorders: anemia Cancer(s): NONE 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 , Age 44; Cause: HTN (hypertension). FATHER, , Age 68; Cause: ASHD (arteriosclerotic heart disease). Psychosocial History Where Do You Live? Home Who Do You Live With? self Services at Home: None Primary Language: Singaporean Smoking Status: Unknown If Ever Smoked Living Will? 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 no Functional Ability ADLs Independent: dressing, eating, toileting, bathing. 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 Review of Systems Review of Systems Cardiovascular: Denies: chest pain. Respiratory: Denies: short of breath (improved since admission). Exam & Diagnostic Data Vital Signs and I&O Vital Signs Date Time Temp Pulse Resp B/P B/P Pulse O2 O2 Flow FiO2 Mean Ox Delivery Rate 06/09 0641 98.0 70 20 130/70 94 Nasal 3.0L Cannula 06/09 0525 70 93 06/09 0020 65 92 06/09 0000 CPAP 06/08 2259 80 95 06/08 205 70 158/70 06/08 205 70 158/70 06/08 1630 93 Nasal 2.0L Cannula 06/08 1531 98.6 68 20 146/88 90 06/08 1442 98.6 64 20 124/58 92 Nasal 2.0L Cannula 06/08 1439 124/58 06/08 0926 63 144/58 06/08 0926 63 144/58 06/08 0926 63 144/58 06/08 0800 92 Nasal 2.0L Cannula Intake & Output 06/09 0806/09 0000 06/08 1600 06/08 0800 06/08 0000 06/07 1600 Intake Total 80 480 800 100 400 Output Total 200 200 200 125 250 Balance 80 280 600 -100 -125 150 Intake, Blood 300 Product Intake, Oral 80 480 500 100 400 Number 2 1 Bowel Movements Output, Urine 200 200 200 125 250 Patient 193 lb 202 lb 202 lb Weight Physical Exam General Appearance: well developed/nourished, no apparent distress, alert, awake , comfortable Head: normal appearance Respiratory: quiet respiration Peripheral Pulses: 2+ brachial (R), 2+ brachial (L), 2+ radial (R), 2+ radial (L), 2+ ulnar (L) Extremities: swelling (Mild pitting pretibial edema) Neurologic/Psych: awake, alert, oriented x 3, normal mood/affect Assessment/Plan Assessment/Plan IMP: 77yo right-handed female w/ CKD and worsening renal function. She is close to requiring renal replacement therapy. We spoke about HD access options, including catheters, AVFs and AVGs. AVF/AVG creation was described, including technique, risks (bleeding, infection, failure , steal syndrome), and postop expectations. REC: No IVs in, or blood draws from the LUE. Pt to f/u w/ me in the office in the next 2-3 weeks to further discuss AVF/AVG surgery. Plan d/w Dr. Cameron. Consult Acknowledgment - Thank you for your consult request.
--- NOTE | 2018-06-09 07:53 | PN- Housestaff ---
Subjective Follow-up For: CHF exacerbation Acute on chronic anemia Hypertension Subjective: Patient seen and examined. Overnight her vitals are stable with a blood pressure 130/70 and acceptable oxygen saturations on 2-3 L of oxygen. The patient has no complaints overnight. Yesterday dialysis and placement of AV fistula was discussed with her by Dr. Cameron, lip cutter and scorer, Dr. Paredes, vascular surgeon. The patient was given 1 unit of blood yesterday for hemoglobin of 7.1 which increase the hemoglobin to 7.9. Review of Systems Constitutional: Reports: no symptoms. Cardiovascular: Reports: peripheral edema. Respiratory: Reports: no symptoms. Genitourinary: Reports: no symptoms. Musculoskeletal: Reports: no symptoms. Skin: Reports: no symptoms. Objective Last 24 Hrs of Vital Signs/I&O Vital Signs Date Time Temp Pulse Resp B/P B/P Pulse O2 O2 Flow FiO2 Mean Ox Delivery Rate 06/09 1410 98.0 68 18 142/68 92 06/09 1409 68 142/68 06/09 1200 Nasal 3.0L Cannula 06/09 0911 70 130/70 06/09 0910 70 130/70 06/09 0909 70 130/70 06/09 0909 70 130/70 06/09 0800 Nasal 3.0L Cannula 06/09 0641 98.0 70 20 130/70 94 Nasal 3.0L Cannula 06/09 0525 70 93 06/09 0020 65 92 06/09 0000 CPAP 06/08 2259 80 95 06/08 2052 70 158/70 06/08 2052 70 158/70 06/08 1630 93 Nasal 2.0L Cannula 06/08 1531 98.6 68 20 146/88 90 06/08 1442 98.6 64 20 124/58 92 Nasal 2.0L Cannula 06/08 1439 124/58 Intake & Output 06/09 1600 06/09 0800 06/09 0000 Intake Total 80 480 Output Total 200 Balance 80 280 Intake, Oral 80 480 Output, Urine 200 Patient 193 lb 202 lb Weight Physical Exam General Appearance: Alert, Oriented X3, Cooperative, No Acute Distress Skin: No Rashes Skin Temp/Moisture Exam: Warm/Dry HEENT: Atraumatic, PERRLA, EOMI, Mucous Membr. moist/pink Neck: Supple, No JVD Cardiovascular: Regular Rate, Normal S1, Normal S2 Lungs: Clear to Auscultation, Normal Air Movement Abdomen: Normal Bowel Sounds, Soft, No Tenderness Neurological: Normal Speech Current Medications: Current Medications Sig/Duong Start time Last Medication Dose Route Stop Time Status Admin Acetaminophen 325 MG Q6P PRN 05/25 1500 AC 06/01 PO 2127 Albuterol Sulfate 3 ML Q4P PRN 05/24 1300 AC 05/29 INH 0309 Amlodipine Besylate 10 MG DAILY 05/24 1133 AC 06/09 PO 0909 Aspirin 81 MG DAILY 05/24 1133 AC 06/09 PO 0910 Cholecalciferol 1,000 IU DAILY 05/24 1133 AC 06/09 PO 0911 Doxazosin Mesylate 4 MG DAILY 05/24 1134 AC 06/09 PO 0911 Epoetin Ld 10,000 UNITS ONCE A WEEK 06/03 1215 AC 06/03 SC 1300 Ferric Sodium 125 MG Q48H 05/29 0900 AC 06/08 Gluconate Complex IV 06/10 0959 1805 Sodium Chloride 100 ML Hydralazine HCl 100 MG TID 05/24 1400 AC 06/09 PO 1409 Isosorbide 90 MG DAILY 06/01 0900 AC 06/09 Mononitrate PO 0910 Labetalol HCl 300 MG BID 05/24 1800 AC 06/09 PO 0911 Minoxidil 5 MG DAILY 06/02 1417 AC 06/09 PO 0910 Multivitamins 1 TAB DAILY 05/24 1136 AC 06/09 Therapeutic PO 0912 Polyethylene Glycol 17 GM DAILY 05/27 1401 AC 06/08 PO 0925 Pravastatin Sodium 20 MG 1700 05/24 1700 AC 06/08 PO 1729 Senna/Docusate Sodium 1 TAB BID PRN 05/27 1415 AC 05/27 PO 1426 Sevelamer Carbonate 800 MG WM 05/24 1200 AC 06/09 PO 1224 Vitamin E 200 IU DAILY 05/24 1138 AC 06/09 PO 0912 Last 24 Hrs of Lab/Ray Results Last 24 Hrs of Labs/Mics: Laboratory Tests 06/09/18 07: Anion Gap 14, Estimated GFR 10 L, BUN/Creatinine Ratio 13.4, CBC w Diff NO MAN DIFF REQ, RBC 2.69 L, MCV 92.9, MCH 30.1, MCHC 32.4 L, RDW 16.0 H, MPV 9.3, Gran % 71.2, Lymphocytes % 14.3 L, Monocytes % 8.7, Eosinophils % 4.7, Basophils % 1.1, Absolute Granulocytes 4.9, Absolute Lymphocytes 1.0 L, Absolute Monocytes 0.6, Absolute Eosinophils 0.3, Absolute Basophils 0.1 06/08/182054: CBC w Diff NO MAN DIFF REQ, RBC 2.63 L, MCV 92.1, MCH 29.9, MCHC 32.4 L, RDW 16.9 H, MPV 9.0, Gran % 71.7, Lymphocytes % 14.9 L, Monocytes % 8.2, Eosinophils % 4.5, Basophils % 0.7, Absolute Granulocytes 5.2, Absolute Lymphocytes 1.1 L, Absolute Monocytes 0.6, Absolute Eosinophils 0.3, Absolute Basophils 0.1 Assessment/Plan Assessment: This is a 77-year-old female with a past medical history of CKD stage IV, anemia , hypertension, CHF, hyperlipidemia, chronic venous insufficiency, that comes in to see us for 2 weeks of worsening dyspnea at rest and exertion, lower extremity edema, mild left chest pressure worse on exertion, and hypertension on BP log book. Her blood pressure was recently increased from 5 mg to 10 mg but she has continued to have high blood pressures for the past month, sometimes in the low 200s. She is usually on 40 mg of Lasix daily but has continued to have lower extremity edema and complains now of orthopnea. Her last echocardiogram showed stage I diastolic dysfunction but preserved ejection fraction. On physical exam , the patient is using her accessory muscles of breathing and notes worsening shortness of breath when walking to the bathroom. In the ED, her vitals showed temperature 98.6, heart rate 111, respiratory rate 20, blood pressure 211/100 which decreased to 172/74 with 10 mg hydralazine push. Oxygen saturation at admission was 85% on room air which increased to 94% on 2 L and with IV Lasix 80 mg. On the floors, patient had a repeat blood pressure done which showed 240/100 in the left arm and 220/100 in the right arm. Her labs showed anemia with a hemoglobin of 8.6 which is baseline for her, mild hypernatremia of 146, BUN of 41, creatinine 2.9 which is chronic for her. Troponin was negative, proBNP was 17,800. LFTs were normal. Chest x-ray showed mildly increasing perihilar interstitial prominence concerning for developing congestion. In the ED, the patient was given hydralazine push 10 mg, Lasix 80 mg IV, Tylenol , Nitro-Bid Assessment -Mild chest pressure rule out ACS -Acute hypoxic respiratory failure secondary to CHF exacerbation versus pulmonary embolism versus as yet undiagnosed pulmonary pathology. -Hypertensive urgency -Stage IV CKD - proteinuria likely secondary to diabetic neuropathy and hypertensive nephrosclerosis -Chronic anemia -Mild hypernatremia -righ rib pain -Evidence of UTI on urinary culture ESBL -Thrombophlebitis PLAN: Acute hypoxic respiratory failure: There was some concern for a PE as her d- dimer was elevated last weekend and she was started on heparin. However her blood count was found to dip requiring 2 units of blood and a lower extremity Doppler was negative so heparin was stopped. As per cardiology we ordered a noncontrast CT of the chest to elucidate further why the patient has increased oxygen requirement despite being optimized on medical therapy for CHF. Nothing else was found other than evidence of CHF. * If patient continues to have a decompensated oxygen level we will consider VQ scan. * Continue to hold Lasix. Of note, patient received 1 dose of IV 40 mg Lasix yesterday after her blood transfusion. * Con't isosorbide at increased level from home dose * Fluid restriction of 1500 cc per day; may have to liberalize given Cr. At this time we will hold the lasix and hold off giving any fluids in hope her Cr. would improve without further insult. As of now, her creatinine has worsened and we will defer to nephrology for resumption of Lasix. We have discussed dialysis with the patient which may help with her pulmonary function. * Echocardiogram showed at least type II diastolic dysfunction with moderate pulmonary hypertension and ejection fraction 60-65% with elevated filling pressures. Hypertensive urgency: * Patient was started on labetalol 300 mg twice a day and as per renal, can uptitrate as needed for her blood pressure if SBP greater than 160. * Continued hydralazine 100 mg 3 times a day, amlodipine 10. * We will continue minoxidil 5 mg daily by mouth. Blood pressures today are stable. Stage IV CKD: proteinuria likely secondary to diabetic neuropathy and hypertensive nephrosclerosis. Cr worsening daily, now above 4. * Consulted with nephrology who have discussed placement of AvF with the patient and vascular surgeon Dr. Paredes for potential dialysis. Patient is opposed to home dialysis but is amenable to dialysis center. Patient will follow up with Dr. Villagran in 2-3 weeks for placement of AV fistula. For the time being we will do no blood draws in her left upper extremity. Acute on chronic anemia: * Patient given one unit of blood yesterday for dip in Hb. Given two units last week for dip around the same time heparin started. Lasix 40mg IV to follow unit of blood. * We added Epogen 10,000 units weekly to her medication regimen. * Also IV ferrlicet 125 mg every other day for 8 doses, patient is on her last dose. * We will recommend that in a couple weeks she has her iron stores rechecked. * Multiple times guiac negative Thrombophlebitis: patient's right arm and left hand lesions may be developing superficial thrombophlebitis that is post IV removal. Currently these seem to be resolving. Dilated aorta: 4.2 cm gradually increasing which will need to be followed up on outpatient. Evidence of UTI on urinary culture ESBL: colonization. Geiger removed. Continue patient's other home medications including tramadol, doxazosin, multivitamin, vitamin E/D. We will recommend patient follow up with pulmonology outpatient for sleep study, as well as nephrology, vascular surgeon, cardiology. CHF diet Patient is full code DVT prophylaxis with Alps and heparin SQ Problem List: 1. Chronic kidney disease 2. CHF (congestive heart failure) Pain Ratin Pain Location: na Pain Goal: Remain pain free Pain Plan: na Tomorrow's Labs & Rationales: na
[2018-06-09 09:24] LABS: ABSOLUTE BASOPHIL COUNT 0.1 /CUMM (0.0-0.2); ABSOLUTE EOSINOPHIL COUNT 0.3 /CUMM (0.0-0.7); ABSOLUTE GRANULOCYTE CT 4.9 /CUMM (1.4-6.5); ABSOLUTE MONOCYTE COUNT 0.6 /CUMM (0.10-0.60); BASOPHIL % 1.1 % (0.0-2.0); EOSINOPHIL % 4.7 % (0-5); GRANULOCYTE % 71.2 % (42.2-75.2); MEAN CORPUSCULAR HGB 30.1 PG (27.0-31.0); MEAN CORPUSCULAR HGB CONC 32.4 G/DL (33.0-37.0); MEAN CORPUSCULAR VOLUME 92.9 FL (81.0-99.0); MEAN PLATELET VOLUME 9.3 FL (7.4-10.4); PLATELET COUNT 292 /CUMM (130-400); RED BLOOD CELL CT 2.69 /CUMM (4.20-5.40); WHITE BLOOD CELL COUNT 6.8 /CUMM (4.8-10.8)
--- NOTE | 2018-06-09 10:03 | PN- Att Addend ---
Attending Addendum Attending Brief Note Patient seen and examined, feels overall better. Still requiring 3 L of oxygen but claims that her breathing has improved. She denies any aches or pains. Her H&H has improved after transfusion. Vital Signs Date Time Temp Pulse Resp B/P B/P Pulse O2 O2 Flow FiO2 Mean Ox Delivery Rate 06/09 911 70 130/70 06/09 0910 70 130/70 06/09 0909 70 130/70 06/09 0909 70 130/70 06/09 0641 98.0 70 20 130/70 94 Nasal 3.0L Cannula 06/09 0525 70 93 06/09 0020 65 92 06/09 0000 CPAP 06/08 2259 80 95 06/08 2052 70 158/70 06/08 2052 70 158/70 06/08 1630 93 Nasal 2.0L Cannula 06/08 1531 98.6 68 20 146/88 90 06/08 1442 98.6 64 20 124/58 92 Nasal 2.0L Cannula 06/08 1439 124/58 on exam; aox3, nad. cv; s1,s2, + systolic murmur. resp; overall clear but decreased bs b/l abd; soft, nt, bs+ ext;2+ edema Laboratory Tests 06/09 Chemistry Sodium (137 - 145 mmol/L) 147 H Potassium (3.5 - 5.1 mmol/L) 4.8 Chloride (98 - 107 mmol/L) 107 Carbon Dioxide (22 - 30 mmol/L) 26 Anion Gap (5 - 16) 14 BUN (7 - 17 mg/dL) 59 H Creatinine (0.5 - 1.0 mg/dL) 4.4 H Estimated GFR (>60 ml/min) 10 L BUN/Creatinine Ratio (7 - 25 %) 13.4 Hematology CBC w Diff NO MAN DIFF REQ NO MAN DIFF REQ WBC (4.8 - 10.8 /CUMM) 6.8 7.2 RBC (4.20 - 5.40 /CUMM) 2.69 L 2.63 L Hgb (12.0 - 16.0 G/DL) 8.1 L 7.9 L Hct (37 - 47 %) 25.0 L 24.2 L MCV (81.0 - 99.0 FL) 92.9 92.1 MCH (27.0 - 31.0 PG) 30.1 29.9 MCHC (33.0 - 37.0 G/DL) 32.4 L 32.4 L RDW (11.5 - 14.5 %) 16.0 H 16.9 H Plt Count (130 - 400 /CUMM) 292 297 MPV (7.4 - 10.4 FL) 9.3 9.0 Gran % (42.2 - 75.2 %) 71.2 71.7 Lymphocytes % (20.5 - 51.1 %) 14.3 L 14.9 L Monocytes % (1.7 - 9.3 %) 8.7 8.2 Eosinophils % (0 - 5 %) 4.7 4.5 Basophils % (0.0 - 2.0 %) 1.1 0.7 Absolute Granulocytes (1.4 - 6.5 /CUMM) 4.9 5.2 Absolute Lymphocytes (1.2 - 3.4 /CUMM) 1.0 L 1.1 L Absolute Monocytes (0.10 - 0.60 /CUMM) 0.6 0.6 Absolute Eosinophils (0.0 - 0.7 /CUMM) 0.3 0.3 Absolute Basophils (0.0 - 0.2 /CUMM) 0.1 0.1 A/P; 77 y/o F with pmh sig for CKD stage IV, anemia, hypertension, ch diastolic CHF, hyperlipidemia, admitted with acute shortness of breath secondary to acute on chronic congestive heart failure exacerbation with preserved ejection fraction, chest pain ruled out for acute coronary syndrome, worsening chronic kidney disease with acute on chronic renal failure, acute on chronic anemia likely secondary to chronic kidney disease. Blood pressure is much better. H&H is improved after transfusion. Creatinine remains in the fours range. Patient to be seen by vascular surgery for evaluation of AV fistula. We will discuss with nephrology about any urgent need for dialysis versus wait for the fistula to get mature if dialysis is indicated in future. Will try to taper her oxygen but patient will be going home with oxygen at this point. Encourage ambulation. Continue the rest of the management. Possible discharge tomorrow if remains stable.
--- NOTE | 2018-06-09 11:53 | PN- Cardiology ---
Subjective Subjective: The patient is resting comfortably this morning. Objective Vital Signs and I&Os Vital Signs Date Time Temp Pulse Resp B/P B/P Pulse O2 O2 Flow FiO2 Mean Ox Delivery Rate 06/09 0911 70 130/70 06/09 0910 70 130/70 06/09 0909 70 130/70 06/09 0909 70 130/70 06/09 0641 98.0 70 20 130/70 94 Nasal 3.0L Cannula 06/09 0525 70 93 06/09 0020 65 92 06/09 0000 CPAP 06/08 2259 80 95 06/08 2052 70 158/70 06/08 2052 70 158/70 06/08 1630 93 Nasal 2.0L Cannula 06/08 1531 98.6 68 20 146/88 90 06/08 1442 98.6 64 20 124/58 92 Nasal 2.0L Cannula 06/08 1439 124/58 Intake & Output 06/09 1600 06/09 0800 06/09 0000 06/08 1600 06/08 0800 06/08 0000 Intake Total 80 480 800 100 Output Total 200 200 200 125 Balance 80 280 600 -100 -125 Intake, Blood 300 Product Intake, Oral 80 480 500 100 Number 2 1 Bowel Movements Output, Urine 200 200 200 125 Patient 193 lb 202 lb 202 lb Weight Physical Exam: General: no apparent distress. Alert. On nasal cannula Eyes: No obvious scleral icterus. HEENT: No jugular venous distention or abnormal jugular venous pulsations. Cardiovascular: Normal intensity S1/S2. Regular Respiratory: Mildly decreased air entry bilaterally Abdomen: Soft, nontender with no guarding or rebound tenderness. Musculoskeletal: No clubbing or cyanosis noted; 1+ lower extremity edema Skin: Stasis changes Neurologic: No gross focal deficits noted. Lymph: No gross lymphadenopathy. Current Medications: Current Medications Sig/Duong Start time Last Medication Dose Route Stop Time Status Admin Acetaminophen 325 MG Q6P PRN 05/25 1500 AC 06/01 PO 212 Albuterol Sulfate 3 ML Q4P PRN 05/24 1300 AC 05/29 INH 0309 Amlodipine Besylate 10 MG DAILY 05/24 1133 AC 06/09 PO 0909 Aspirin 81 MG DAILY 05/24 1133 AC 06/09 PO 0910 Cholecalciferol 1,000 IU DAILY 05/24 1133 AC 06/09 PO 0911 Doxazosin Mesylate 4 MG DAILY 05/24 1134 AC 06/09 PO 0911 Epoetin Ld 10,000 UNITS ONCE A WEEK 06/03 1215 AC 06/03 SC 1300 Ferric Sodium 125 MG Q48H 05/29 0900 AC 06/08 Gluconate Complex IV 06/10 0959 1805 Sodium Chloride 100 ML Furosemide 40 MG ONCE ONE 06/08 1200 DC 06/08 IV 06/08 1201 1544 Hydralazine HCl 100 MG TID 05/24 1400 AC 06/09 PO 0909 Isosorbide 90 MG DAILY 06/01 0900 AC 06/09 Mononitrate PO 09 Labetalol HCl 300 MG BID 05/24 1800 AC 06/09 PO 0911 Minoxidil 5 MG DAILY 06/02 1417 AC 06/09 PO 0910 Multivitamins 1 TAB DAILY 05/24 1136 AC 06/09 Therapeutic PO 09 Polyethylene Glycol 17 GM DAILY 05/27 1401 AC 06/08 PO 0925 Pravastatin Sodium 20 MG 1700 05/24 1700 AC 06/08 PO 1729 Senna/Docusate Sodium 1 TAB BID PRN 05/27 1415 AC 05/27 PO 1426 Sevelamer Carbonate 800 MG WM 05/24 1200 AC 06/09 PO 0910 Vitamin E 200 IU DAILY 05/24 1138 AC 06/09 PO 0912 Results Last 48 Hrs of Labs/Mics: Laboratory Tests 06/09/18720: Anion Gap 14, Estimated GFR 10 L, BUN/Creatinine Ratio 13.4, CBC w Diff NO MAN DIFF REQ, RBC 2.69 L, MCV 92.9, MCH 30.1, MCHC 32.4 L, RDW 16.0 H, MPV 9.3, Gran % 71.2, Lymphocytes % 14.3 L, Monocytes % 8.7, Eosinophils % 4.7, Basophils % 1.1, Absolute Granulocytes 4.9, Absolute Lymphocytes 1.0 L, Absolute Monocytes 0.6, Absolute Eosinophils 0.3, Absolute Basophils 0.1 06/08/182054: CBC w Diff NO MAN DIFF REQ, RBC 2.63 L, MCV 92.1, MCH 29.9, MCHC 32.4 L, RDW 16.9 H, MPV 9.0, Gran % 71.7, Lymphocytes % 14.9 L, Monocytes % 8.2, Eosinophils % 4.5, Basophils % 0.7, Absolute Granulocytes 5.2, Absolute Lymphocytes 1.1 L, Absolute Monocytes 0.6, Absolute Eosinophils 0.3, Absolute Basophils 0.1 06/08/18 0635: Anion Gap 13, Estimated GFR 10 L, BUN/Creatinine Ratio 13.6, CBC w Diff NO MAN DIFF REQ, RBC 2.38 L, MCV 93.8, MCH 29.9, MCHC 31.8 L, RDW 15.4 H, MPV 8.7, Gran % 67.4, Lymphocytes % 17.5 L, Monocytes % 9.1, Eosinophils % 5.0, Basophils % 1.0, Absolute Granulocytes 4.6, Absolute Lymphocytes 1.2, Absolute Monocytes 0.6, Absolute Eosinophils 0.3, Absolute Basophils 0.1 Recent Imaging Studies: No longer on telemetry Assessment/Plan Assessment/Plan 1. Hypertensive urgency blood pressure is now stabilized 2. Acute on chronic heart failure with preserved ejection fraction 3. Chronic kidney disease 4. History of mild aortic stenosis 5. Sleep apnea 6. Chronic venous insufficiency 7. Hyperlipidemia 8. Chronic anemia s/p 2Units PRBCs 9. Asymptomatic nonsustained wide complex run on telemetry 10. Mild aortic dilatation Hemoglobin improved status post transfusion. Creatinine stable at 4.4 today. Resume oral Lasix when cleared by nephrology. Blood pressure is well controlled today. Will likely need AV fistula creation in anticipation of future dialysis. She will likely need home oxygen therapy. Eder Hager MD [facility] Continue telemetry? Not applicable
[2018-06-09 14:10] VITALS: BP 142/68
[2018-06-09 21:05] VITALS: BP 160/72
--- NOTE | 2018-06-09 21:27 | PN- Nephrology ---
Assessment/Plan Nephrology Assessment: 1. CKD IV (?now V) - 2/2 HTN 2. PTAO 2/2 decreased renal perfusion; rising serum Na suggests some degree of inravascular contraction or at least a developing free water deficit 3. Anemia of CKD with low Tsat - on epo and IV iron Suggestion: 1. Continue to hold diuretics for the moment 2. Encourage po fluids 3. No dialysis need for the moment 4. Continue to monitor I&O, labs daily 5. Hopefully can proceed with access surgery as an outpt Subjective Subjective: Pt denies pain; breathing better. States that she has a better understanding now vis-a-vis chronic hemodialysis and appears to be willing to f/u as outpt with vascular surgery for dialysis access placement. Renal fx no better but no worse. Serum Na with tendency to rise. Objective Vital Signs and I&Os Vital Signs Date Time Temp Pulse Resp B/P B/P Pulse O2 O2 Flow FiO2 Mean Ox Delivery Rate 06/09 1410 98.0 68 18 142/68 92 06/09 1409 68 142/68 06/09 1200 Nasal 3.0L Cannula 06/09 0911 70 130/70 06/09 0910 70 130/70 06/09 0909 70 130/70 06/09 0909 70 130/70 06/09 0800 Nasal 3.0L Cannula 06/09 0641 98.0 70 20 130/70 94 Nasal 3.0L Cannula 06/09 0525 70 93 06/09 0020 65 92 06/09 0000 CPAP 06/08 2259 80 95 Intake & Output 06/09 1600 06/09 0400 06/08 1600 06/08 0400 06/07 1600 06/07 0400 Intake Total 560 480 900 400 350 Output Total 200 200 400 125 526 200 Balance 360 280 500 -125 -126 150 Intake, Blood 300 Product Intake, IV 0 Intake, Oral 560 480 600 400 350 Number 2 1 Bowel Movements Output, Stool 1 Output, Urine 200 200 400 125 525 200 Patient 193 lb 202 lb 202 lb 209 lb Weight Weight Bed scale Measurement Method Physical Exam: General: Well-developed, elderly white female in NAD Skin: No rash or jaundice; skin turgor poor HEENT: Conjunctivae pale, sclerae anicteric, mucous membranes moist Neck: Without masses or thyromegaly, no supraclavicular or cervical adenopathy Chest: Clear with diminished BS at bases Heart: Regular rate and rhythm without S3 or rub Abdomen: Soft and nontender without palpable masses or organomegaly Extremities: +edema with overlying stasis changes Neuro: Cognitively intact, no focal findings, no asterixis or myoclonus Results Pertinent Lab Results: Laboratory Tests 06/09 06/08 0721 6945 Chemistry Sodium (137 - 145 mmol/L) 147 H Potassium (3.5 - 5.1 mmol/L) 4.8 Chloride (98 - 107 mmol/L) 107 Carbon Dioxide (22 - 30 mmol/L) 26 Anion Gap (5 - 16) 14 BUN (7 - 17 mg/dL) 59 H Creatinine (0.5 - 1.0 mg/dL) 4.4 H Estimated GFR (>60 ml/min) 10 L BUN/Creatinine Ratio (7 - 25 %) 13.4 Hematology CBC w Diff NO MAN DIFF REQ NO MAN DIFF REQ WBC (4.8 - 10.8 /CUMM) 6.8 7.2 RBC (4.20 - 5.40 /CUMM) 2.69 L 2.63 L Hgb (12.0 - 16.0 G/DL) 8.1 L 7.9 L Hct (37 - 47 %) 25.0 L 24.2 L MCV (81.0 - 99.0 FL) 92.9 92.1 MCH (27.0 - 31.0 PG) 30.1 29.9 MCHC (33.0 - 37.0 G/DL) 32.4 L 32.4 L RDW (11.5 - 14.5 %) 16.0 H 16.9 H Plt Count (130 - 400 /CUMM) 292 297 MPV (7.4 - 10.4 FL) 9.3 9.0 Gran % (42.2 - 75.2 %) 71.2 71.7 Lymphocytes % (20.5 - 51.1 %) 14.3 L 14.9 L Monocytes % (1.7 - 9.3 %) 8.7 8.2 Eosinophils % (0 - 5 %) 4.7 4.5 Basophils % (0.0 - 2.0 %) 1.1 0.7 Absolute Granulocytes (1.4 - 6.5 /CUMM) 4.9 5.2 Absolute Lymphocytes (1.2 - 3.4 /CUMM) 1.0 L 1.1 L Absolute Monocytes (0.10 - 0.60 /CUMM) 0.6 0.6 Absolute Eosinophils (0.0 - 0.7 /CUMM) 0.3 0.3 Absolute Basophils (0.0 - 0.2 /CUMM) 0.1 0.1 06/08 06/07 0635 0967 Chemistry Sodium (137 - 145 mmol/L) 146 H 145 Potassium (3.5 - 5.1 mmol/L) 5.0 4.9 Chloride (98 - 107 mmol/L) 106 107 Carbon Dioxide (22 - 30 mmol/L) 27 26 Anion Gap (5 - 16) 13 13 BUN (7 - 17 mg/dL) 60 H 58 H Creatinine (0.5 - 1.0 mg/dL) 4.4 H 4.1 H Estimated GFR (>60 ml/min) 10 L 11 L BUN/Creatinine Ratio (7 - 25 %) 13.6 14.1 Hematology CBC w Diff NO MAN DIFF REQ NO MAN DIFF REQ WBC (4.8 - 10.8 /CUMM) 6.8 7.1 RBC (4.20 - 5.40 /CUMM) 2.38 L 2.51 L Hgb (12.0 - 16.0 G/DL) 7.1 *L 7.5 L Hct (37 - 47 %) 22.4 L 23.4 L MCV (81.0 - 99.0 FL) 93.8 93.2 MCH (27.0 - 31.0 PG) 29.9 29.7 MCHC (33.0 - 37.0 G/DL) 31.8 L 31.9 L RDW (11.5 - 14.5 %) 15.4 H 15.6 H Plt Count (130 - 400 /CUMM) 306 302 MPV (7.4 - 10.4 FL) 8.7 9.0 Gran % (42.2 - 75.2 %) 67.4 71.8 Lymphocytes % (20.5 - 51.1 %) 17.5 L 15.1 L Monocytes % (1.7 - 9.3 %) 9.1 7.3 Eosinophils % (0 - 5 %) 5.0 5.2 H Basophils % (0.0 - 2.0 %) 1.0 0.6 Absolute Granulocytes (1.4 - 6.5 /CUMM) 4.6 5.1 Absolute Lymphocytes (1.2 - 3.4 /CUMM) 1.2 1.1 L Absolute Monocytes (0.10 - 0.60 /CUMM) 0.6 0.5 Absolute Eosinophils (0.0 - 0.7 /CUMM) 0.3 0.4 Absolute Basophils (0.0 - 0.2 /CUMM) 0.1 0
[2018-06-10 06:30] VITALS: BP 148/62
--- NOTE | 2018-06-10 07:48 | PN- Housestaff ---
Subjective Follow-up For: CHF EXACERBATION HYPERTENSION CKD STAGE 4-5 ACUTE ON CHRONIC ANEMIA Subjective: Patient seen and examined. Overnight she remained on 2-3 L with acceptable blood pressures. She has no complaints this morning and is eager to leave. Today she is stable enough to be discharged on home oxygen with close follow-up. Review of Systems Constitutional: Reports: no symptoms. Cardiovascular: Reports: peripheral edema. Respiratory: Reports: no symptoms. Gastrointestinal: Reports: no symptoms. Genitourinary: Reports: no symptoms. Musculoskeletal: Reports: no symptoms. Neurological/Psychological: Reports: no symptoms. Objective Last 24 Hrs of Vital Signs/I&O Vital Signs Date Time Temp Pulse Resp B/P B/P Pulse O2 O2 Flow FiO2 Mean Ox Delivery Rate 06/10 1008 98.0 60 18 122/58 95 Nasal 2.0L Cannula 06/10 0807 77 148/62 / 0806 77 148/62 / 0805 77 148/62 / 0804 77 148/62 / 0800 Nasal 2.0L Cannula 06/10 0630 97.7 77 18 148/62 92 /02 0135 72 91 / 0000 CPAP 06/09 2151 75 94 08/ 2137 75 160/78 08/ 2137 75 160/78 06/09 2105 98.2 75 20 160/72 93 Nasal Cannula 06/09 1410 98.0 68 18 142/68 92 08/01 1409 68 142/68 /01 1200 Nasal 3.0L Cannula Intake & Output 06/10 1600 06/10 0800 06/10 0000 Intake Total 0 240 Output Total 350 150 Balance -350 90 Intake, Oral 0 240 Number 1 0 Bowel Movements Output, Urine 350 150 Patient 207 lb Weight Weight Bed scale Measurement Method Physical Exam General Appearance: Alert, Oriented X3, Cooperative, No Acute Distress Cardiovascular: Regular Rate, Normal S1, Normal S2 Lungs: Clear to Auscultation, Normal Air Movement Abdomen: Normal Bowel Sounds, Soft, No Tenderness Extremities: lower ext 1+ edema Current Medications: Current Medications Sig/Duong Start time Last Medication Dose Route Stop Time Status Admin Acetaminophen 325 MG Q6P PRN 05/25 1500 AC 06/01 PO 212 Albuterol Sulfate 3 ML Q4P PRN 05/24 1300 AC 05/29 INH 0309 Amlodipine Besylate 10 MG DAILY 05/24 1133 AC 06/10 PO 0806 Aspirin 81 MG DAILY 05/24 1133 AC 06/10 PO 0805 Cholecalciferol 1,000 IU DAILY 05/24 1133 AC 06/10 PO 0807 Doxazosin Mesylate 4 MG DAILY 05/24 1134 AC 06/10 PO 0805 Epoetin Ld 10,000 UNITS ONCE A WEEK 06/03 1215 AC 06/10 SC 1023 Ferric Sodium 125 MG Q48H 05/29 0900 DC 06/10 Gluconate Complex IV 06/10 0959 0859 Sodium Chloride 100 ML Hydralazine HCl 100 MG TID 05/24 1400 AC 06/10 PO 0804 Isosorbide 90 MG DAILY 06/01 0900 AC 06/10 Mononitrate PO 0805 Labetalol HCl 300 MG BID 05/24 1800 AC 06/10 PO 0807 Minoxidil 5 MG DAILY 06/02 1417 AC 06/10 PO 0806 Multivitamins 1 TAB DAILY 05/24 1136 AC 06/10 Therapeutic PO 0807 Polyethylene Glycol 17 GM DAILY 05/27 1401 AC 06/08 PO 0925 Pravastatin Sodium 20 MG 1700 05/24 1700 AC 06/09 PO 1647 Senna/Docusate Sodium 1 TAB BID PRN 05/27 1415 AC 05/27 PO 1426 Sevelamer Carbonate 800 MG WM 05/24 1200 AC 06/10 PO 0804 Vitamin E 200 IU DAILY 05/24 1138 AC 06/10 PO 0807 Last 24 Hrs of Lab/Ray Results Last 24 Hrs of Labs/Mics: Laboratory Tests 06/10/18 0830: Anion Gap 11, Estimated GFR 10 L, BUN/Creatinine Ratio 13.6, CBC w Diff NO MAN DIFF REQ, RBC 2.57 L, MCV 92.3, MCH 30.1, MCHC 32.6 L, RDW 16.4 H, MPV 8.8, Gran % 69.2, Lymphocytes % 14.9 L, Monocytes % 10.2 H, Eosinophils % 4.9, Basophils % 0.8, Absolute Granulocytes 4.6, Absolute Lymphocytes 1.0 L, Absolute Monocytes 0.7 H, Absolute Eosinophils 0.3, Absolute Basophils 0.1 Assessment/Plan Assessment: This is a 77-year-old female with a past medical history of CKD stage IV, anemia , hypertension, CHF, hyperlipidemia, chronic venous insufficiency, that comes in to see us for 2 weeks of worsening dyspnea at rest and exertion, lower extremity edema, mild left chest pressure worse on exertion, and hypertension on BP log book. Her blood pressure was recently increased from 5 mg to 10 mg but she has continued to have high blood pressures for the past month, sometimes in the low 200s. She is usually on 40 mg of Lasix daily but has continued to have lower extremity edema and complains now of orthopnea. Her last echocardiogram showed stage I diastolic dysfunction but preserved ejection fraction. On physical exam , the patient is using her accessory muscles of breathing and notes worsening shortness of breath when walking to the bathroom. In the ED, her vitals showed temperature 98.6, heart rate 111, respiratory rate 20, blood pressure 211/100 which decreased to 172/74 with 10 mg hydralazine push. Oxygen saturation at admission was 85% on room air which increased to 94% on 2 L and with IV Lasix 80 mg. On the floors, patient had a repeat blood pressure done which showed 240/100 in the left arm and 220/100 in the right arm. Her labs showed anemia with a hemoglobin of 8.6 which is baseline for her, mild hypernatremia of 146, BUN of 41, creatinine 2.9 which is chronic for her. Troponin was negative, proBNP was 17,800. LFTs were normal. Chest x-ray showed mildly increasing perihilar interstitial prominence concerning for developing congestion. In the ED, the patient was given hydralazine push 10 mg, Lasix 80 mg IV, Tylenol , Nitro-Bid Assessment -Mild chest pressure rule out ACS -Acute hypoxic respiratory failure secondary to CHF exacerbation versus pulmonary embolism versus as yet undiagnosed pulmonary pathology. -Hypertensive urgency -Stage IV CKD - proteinuria likely secondary to diabetic neuropathy and hypertensive nephrosclerosis -Chronic anemia -Mild hypernatremia -righ rib pain -Evidence of UTI on urinary culture ESBL -Thrombophlebitis PLAN: Acute hypoxic respiratory failure: Mostly secondary to congestive heart failure but also secondary to her kidney failure. There was some concern for a PE as her d-dimer was elevated last weekend and she was started on heparin. However her blood count was found to dip requiring 2 units of blood and a lower extremity Doppler was negative so heparin was stopped. As per cardiology we ordered a noncontrast CT of the chest to elucidate further why the patient has increased oxygen requirement despite being optimized on medical therapy for CHF. Nothing else was found other than evidence of CHF. * If patient continues to have a decompensated oxygen level we will consider VQ scan. * Continue to hold Lasix. Of note, patient received 1 dose of IV 40 mg Lasix yesterday after her blood transfusion. * Con't isosorbide at increased level outpatient * Patient will follow up with nephrology and vascular surgeon for placement of an AV fistula for dialysis. As per workers compensation attorney today, patient can continue her 40 mg of Lasix p.o. as needed for lower extremity swelling. * Echocardiogram showed at least type II diastolic dysfunction with moderate pulmonary hypertension and ejection fraction 60-65% with elevated filling pressures. Hypertensive urgency: * Patient was started on labetalol 300 mg twice a day and as per renal, can uptitrate as needed for her blood pressure if SBP greater than 160. Be discharged on this dosage. * Continued hydralazine 100 mg 3 times a day, amlodipine 10. * We will continue minoxidil 5 mg daily by mouth. Blood pressures today are stable. Stage IV CKD: proteinuria likely secondary to diabetic neuropathy and hypertensive nephrosclerosis. Cr slightly better than yesterday from 4.4 down to 4.2. * Consulted with nephrology who have discussed placement of AvF with the patient and vascular surgeon Dr. Paredes for potential dialysis. Patient is opposed to home dialysis but is amenable to dialysis center. Patient will follow up with Dr. Villagran in 2-3 weeks for placement of AV fistula. For the time being we will do no blood draws in her left upper extremity. * Recommending repeat BEP on 06/17/18 Acute on chronic anemia: * Patient given one unit of blood yesterday for dip in Hb. Given two units last week for dip around the same time heparin started. Lasix 40mg IV to follow unit of blood. * We added Epogen 10,000 units weekly to her medication regimen she will receive from her workers compensation attorney. * Also IV ferrlicet 125 mg every other day for 8 doses, patient is on her last dose today. * We will recommend that in a couple weeks she has her iron stores rechecked. * Multiple times guiac negative * We are recommending repeat CBCs on 06/17/18 Thrombophlebitis: patient's right arm and left hand lesions may be developing superficial thrombophlebitis that is post IV removal. Currently these continue to resolve. Dilated aorta: 4.2 cm gradually increasing which will need to be followed up on outpatient w/ Dr. Paredes. Evidence of UTI on urinary culture ESBL: colonization. Geiger removed. Continue patient's other home medications including tramadol, doxazosin, multivitamin, vitamin E/D. We will recommend patient follow up with pulmonology outpatient for sleep study, as well as nephrology, vascular surgeon, cardiology. CHF diet Patient is full code DVT prophylaxis with Alps and heparin SQ Problem List: 1. Chronic kidney disease 2. CHF (congestive heart failure) 3. HTN (hypertension) Pain Ratin Pain Location: na Pain Goal: Remain pain free Pain Plan: na Tomorrow's Labs & Rationales: na
[2018-06-10 09:19] LABS: ABSOLUTE BASOPHIL COUNT 0.1 /CUMM (0.0-0.2); ABSOLUTE EOSINOPHIL COUNT 0.3 /CUMM (0.0-0.7); ABSOLUTE GRANULOCYTE CT 4.6 /CUMM (1.4-6.5); ABSOLUTE MONOCYTE COUNT 0.7 /CUMM (0.10-0.60); BASOPHIL % 0.8 % (0.0-2.0); EOSINOPHIL % 4.9 % (0-5); GRANULOCYTE % 69.2 % (42.2-75.2); HEMATOCRIT 23.7 % (37-47); MEAN CORPUSCULAR HGB 30.1 PG (27.0-31.0); MEAN CORPUSCULAR HGB CONC 32.6 G/DL (33.0-37.0); MEAN CORPUSCULAR VOLUME 92.3 FL (81.0-99.0); MEAN PLATELET VOLUME 8.8 FL (7.4-10.4); PLATELET COUNT 284 /CUMM (130-400); RBC DISTRIBUTION WIDTH 16.4 % (11.5-14.5); RED BLOOD CELL CT 2.57 /CUMM (4.20-5.40); WHITE BLOOD CELL COUNT 6.6 /CUMM (4.8-10.8)
[2018-06-10] MEDS ORDERED: ISOSORBIDE MONO30 M1 PO ×2 (09:21→12:05)
--- NOTE | 2018-06-10 10:03 | PN- Att Addend ---
Attending Addendum Attending Brief Note Patient seen and examined, overall doing okay. Still requiring 3 L of oxygen. She denies feeling short of breath. Vital Signs Date Time Temp Pulse Resp B/P B/P Pulse O2 O2 Flow FiO2 Mean Ox Delivery Rate 06/10 0807 77 148/62 / 0806 77 148/62 06/10 0805 77 148/62 06/10 0804 77 148/62 06/10 0630 97.7 77 18 148/62 92 06/10 0135 72 91 06/10 0000 CPAP 06/09 2151 75 94 06/09 2137 75 160/78 06/09 2137 75 160/78 06/09 2105 98.2 75 20 160/72 93 Nasal Cannula 06/09 1410 98.0 68 18 142/68 92 06/09 1409 68 142/68 06/09 1200 Nasal 3.0L Cannula on exam: aox3, nad. cv; s1, s2, rrr, + systolic murmur resp; clear abd; soft, nt, bs+ ext; 2+ edema Laboratory Tests 06/10 830 Chemistry Sodium (137 - 145 mmol/L) 142 Potassium (3.5 - 5.1 mmol/L) 4.6 Chloride (98 - 107 mmol/L) 108 H Carbon Dioxide (22 - 30 mmol/L) 24 Anion Gap (5 - 16) 11 BUN (7 - 17 mg/dL) 57 H Creatinine (0.5 - 1.0 mg/dL) 4.2 H Estimated GFR (>60 ml/min) 10 L BUN/Creatinine Ratio (7 - 25 %) 13.6 Hematology CBC w Diff NO MAN DIFF REQ WBC (4.8 - 10.8 /CUMM) 6.6 RBC (4.20 - 5.40 /CUMM) 2.57 L Hgb (12.0 - 16.0 G/DL) 7.7 L Hct (37 - 47 %) 23.7 L MCV (81.0 - 99.0 FL) 92.3 MCH (27.0 - 31.0 PG) 30.1 MCHC (33.0 - 37.0 G/DL) 32.6 L RDW (11.5 - 14.5 %) 16.4 H Plt Count (130 - 400 /CUMM) 284 MPV (7.4 - 10.4 FL) 8.8 Gran % (42.2 - 75.2 %) 69.2 Lymphocytes % (20.5 - 51.1 %) 14.9 L Monocytes % (1.7 - 9.3 %) 10.2 H Eosinophils % (0 - 5 %) 4.9 Basophils % (0.0 - 2.0 %) 0.8 Absolute Granulocytes (1.4 - 6.5 /CUMM) 4.6 Absolute Lymphocytes (1.2 - 3.4 /CUMM) 1.0 L Absolute Monocytes (0.10 - 0.60 /CUMM) 0.7 H Absolute Eosinophils (0.0 - 0.7 /CUMM) 0.3 Absolute Basophils (0.0 - 0.2 /CUMM) 0.1 A/P: 77 y/o F with pmh sig for CKD stage IV, anemia, hypertension, ch diastolic CHF, hyperlipidemia, admitted with acute shortness of breath secondary to acute on chronic congestive heart failure exacerbation with preserved ejection fraction, chest pain ruled out for acute coronary syndrome, worsening chronic kidney disease with acute on chronic renal failure, acute on chronic anemia likely secondary to chronic kidney disease. Creatinine has plateaued in 4s range. H&H is relatively stable. Patient getting iron infusions. Manager Fine note reviewed from yesterday and they recommended continue to hold the diuretics at this time. Blood pressure is reasonably controlled. Patient to be seen by was found today. If he thinks that no further intervention is needed and numbers look okay then patient can likely be discharged home today. She will need home services and home oxygen. Patient's RN was told to check room air O2 sat and document the numbers. Patient will need repeat labs which include CBC and BP in 1 week. Patient will follow up with her primary care doctor, nephrology, hematology, vascular surgery as an outpatient for possible access (AVF) formation. She was also told about her abdominal aortic aneurysm and that it needs to follow with vascular surgery. Once seen by nephro, will decide about possible Dc home today with home svcs.
[2018-06-10 10:08] VITALS: BP 122/58
--- NOTE | 2018-06-10 10:31 | PN- Nephrology ---
Assessment/Plan Nephrology Assessment: 1. CKD IV (?now V) - 2/2 HTN 2. PATO 2/2 decreased renal perfusion 3. Hypernatremia - resolved 4. Anemia of CKD with low Tsat - on epo and IV iron Suggestion: 1. Patient is cleared for discharge from renal standpoint 2. Outpatient renal follow-up will be either with myself or Dr. Long; patient has been told that she will be called in this regard 3. Follow-up with Dr. Davion Paredes for permanent vascular access as an outpatient 4. With regard to her diuretics, she can be discharged on the same dose of Lasix that she was on when she was admitted which she can restart at the first sign of worsening edema Subjective Subjective: Patient has no specific complaints today and is anxious to go home. She does not want to go to rehab. Outpatient follow-up is being arranged. Today serum creatinine stable at 4.2. Electrolytes okay. Objective Vital Signs and I&Os Vital Signs Date Time Temp Pulse Resp B/P B/P Pulse O2 O2 Flow FiO2 Mean Ox Delivery Rate 06/10 1008 98.0 60 18 122/58 95 Nasal 2.0L Cannula 06/10 0807 77 148/62 08/ 0806 77 148/62 / 0805 77 148/62 08/ 0804 77 148/62 / 0630 97.7 77 18 148/62 92 / 0135 72 91 /02 0000 CPAP 06/09 2151 75 94 06/09 2137 75 160/78 06/09 2137 75 160/78 06/09 2105 98.2 75 20 160/72 93 Nasal Cannula 06/09 1410 98.0 68 18 142/68 92 01 1409 68 142/68 06/09 1200 Nasal 3.0L Cannula Intake & Output 06/10 1600 06/10 0400 06/09 1600 06/09 0400 06/08 1600 06/08 0400 Intake Total 0 240 560 480 900 Output Total 500 200 200 400 125 Balance 0 -260 360 280 500 -125 Intake, Blood 300 Product Intake, IV 0 Intake, Oral 0 240 560 480 600 Number 1 2 1 Bowel Movements Output, Urine 500 200 200 400 125 Patient 207 lb 193 lb 202 lb 202 lb Weight Weight Bed scale Measurement Method Physical Exam: General: Well-developed, elderly white female in NAD Skin: No rash or jaundice; skin turgor poor HEENT: Conjunctivae pale, sclerae anicteric, mucous membranes moist Neck: Without masses or thyromegaly, no supraclavicular or cervical adenopathy Chest: Clear with diminished BS at bases Heart: Regular rate and rhythm without S3 or rub Abdomen: Soft and nontender without palpable masses or organomegaly Extremities: + trace-1+edema with overlying stasis changes Neuro: Cognitively intact, no focal findings, no asterixis or myoclonus Results Pertinent Lab Results: Laboratory Tests 06/10 06/09 0830 0721 Chemistry Sodium (137 - 145 mmol/L) 142 147 H Potassium (3.5 - 5.1 mmol/L) 4.6 4.8 Chloride (98 - 107 mmol/L) 108 H 107 Carbon Dioxide (22 - 30 mmol/L) 24 26 Anion Gap (5 - 16) 11 14 BUN (7 - 17 mg/dL) 57 H 59 H Creatinine (0.5 - 1.0 mg/dL) 4.2 H 4.4 H Estimated GFR (>60 ml/min) 10 L 10 L BUN/Creatinine Ratio (7 - 25 %) 13.6 13.4 Hematology CBC w Diff NO MAN DIFF REQ NO MAN DIFF REQ WBC (4.8 - 10.8 /CUMM) 6.6 6.8 RBC (4.20 - 5.40 /CUMM) 2.57 L 2.69 L Hgb (12.0 - 16.0 G/DL) 7.7 L 8.1 L Hct (37 - 47 %) 23.7 L 25.0 L MCV (81.0 - 99.0 FL) 92.3 92.9 MCH (27.0 - 31.0 PG) 30.1 30.1 MCHC (33.0 - 37.0 G/DL) 32.6 L 32.4 L RDW (11.5 - 14.5 %) 16.4 H 16.0 H Plt Count (130 - 400 /CUMM) 284 292 MPV (7.4 - 10.4 FL) 8.8 9.3 Gran % (42.2 - 75.2 %) 69.2 71.2 Lymphocytes % (20.5 - 51.1 %) 14.9 L 14.3 L Monocytes % (1.7 - 9.3 %) 10.2 H 8.7 Eosinophils % (0 - 5 %) 4.9 4.7 Basophils % (0.0 - 2.0 %) 0.8 1.1 Absolute Granulocytes (1.4 - 6.5 /CUMM) 4.6 4.9 Absolute Lymphocytes (1.2 - 3.4 /CUMM) 1.0 L 1.0 L Absolute Monocytes (0.10 - 0.60 /CUMM) 0.7 H 0.6 Absolute Eosinophils (0.0 - 0.7 /CUMM) 0.3 0.3 Absolute Basophils (0.0 - 0.2 /CUMM) 0.1 0.1 06/08 06/08 7899 0653 Chemistry Sodium (137 - 145 mmol/L) 146 H Potassium (3.5 - 5.1 mmol/L) 5.0 Chloride (98 - 107 mmol/L) 106 Carbon Dioxide (22 - 30 mmol/L) 27 Anion Gap (5 - 16) 13 BUN (7 - 17 mg/dL) 60 H Creatinine (0.5 - 1.0 mg/dL) 4.4 H Estimated GFR (>60 ml/min) 10 L BUN/Creatinine Ratio (7 - 25 %) 13.6 Hematology CBC w Diff NO MAN DIFF REQ NO MAN DIFF REQ WBC (4.8 - 10.8 /CUMM) 7.2 6.8 RBC (4.20 - 5.40 /CUMM) 2.63 L 2.38 L Hgb (12.0 - 16.0 G/DL) 7.9 L 7.1 *L Hct (37 - 47 %) 24.2 L 22.4 L MCV (81.0 - 99.0 FL) 92.1 93.8 MCH (27.0 - 31.0 PG) 29.9 29.9 MCHC (33.0 - 37.0 G/DL) 32.4 L 31.8 L RDW (11.5 - 14.5 %) 16.9 H 15.4 H Plt Count (130 - 400 /CUMM) 297 306 MPV (7.4 - 10.4 FL) 9.0 8.7 Gran % (42.2 - 75.2 %) 71.7 67.4 Lymphocytes % (20.5 - 51.1 %) 14.9 L 17.5 L Monocytes % (1.7 - 9.3 %) 8.2 9.1 Eosinophils % (0 - 5 %) 4.5 5.0 Basophils % (0.0 - 2.0 %) 0.7 1.0 Absolute Granulocytes (1.4 - 6.5 /CUMM) 5.2 4.6 Absolute Lymphocytes (1.2 - 3.4 /CUMM) 1.1 L 1.2 Absolute Monocytes (0.10 - 0.60 /CUMM) 0.6 0.6 Absolute Eosinophils (0.0 - 0.7 /CUMM) 0.3 0.3 Absolute Basophils (0.0 - 0.2 /CUMM) 0.1 0.1
[2018-06-10] MEDS ORDERED: FUROSEMIDE40 M1 PO ×3 (10:58→12:07)
[2018-06-10] MEDS ORDERED: LABETALOL HCL100 M1 PO (12:05)
[2018-06-10] MEDS ORDERED: MINOXIDIL2.5 M1 PO (12:05)
== END 2018-06-10 13:35 | disposition home health service (06) | DRG 291 ==
LOC: ERH 05:44 → ERHI 08:25 → 1NO 08:25 → 2NA 08:25 → ENRESERV 08:46 → ENTRNSPT 09:43 → EDTRNSPT 09:52 → EDTRNSPTSTS 09:52 → 1NO 10:08 → CMPTRNSPT 10:14 → ENTRNSPT 06-08 18:07 → EDTRNSPTSTS 06-08 18:41 → EDTRNSPT 06-08 18:41 → CMPTRNSPT 06-08 19:13 → 2NA 06-08 19:23 → ENPENDDIS 06-10 11:05 → ENTRNSPT 06-10 13:32 → EDTRNSPT 06-10 13:33 → EDTRNSPTSTS 06-10 13:33 → 2NA 06-10 13:35 → CMPTRNSPT 06-10 13:48
PROVIDERS: Internal Medicine; Internal Medicine Adolescent Medicine; Pediatrics; Student in an Organized Health Care Education/Training Program
PROC: 5A09557 Assistance with Respiratory Ventilation, Greater than 96 Consecutive Hours, Continuous Positive Airway Pressure (ICD-10-PCS; principal; 2018-05-29)
PROC: 30233N1 Transfusion of Nonautologous Red Blood Cells into Peripheral Vein, Percutaneous Approach (ICD-10-PCS; 2018-05-30)
PROC: 30233N1 Transfusion of Nonautologous Red Blood Cells into Peripheral Vein, Percutaneous Approach (ICD-10-PCS; 2018-06-08)
DX: I13.2 Hypertensive heart and chronic kidney disease with heart failure and with stage 5 chronic kidney disease, or end stage renal disease (principal); I50.33 Acute on chronic diastolic (congestive) heart failure; J96.01 Acute respiratory failure with hypoxia; E87.0 Hyperosmolality and hypernatremia; N17.9 Acute kidney failure, unspecified; N18.5 Chronic kidney disease, stage 5; N39.0 Urinary tract infection, site not specified; I27.20 Pulmonary hypertension, unspecified; E11.21 Type 2 diabetes mellitus with diabetic nephropathy; E11.22 Type 2 diabetes mellitus with diabetic chronic kidney disease; I16.0 Hypertensive urgency; G47.30 Sleep apnea, unspecified; D50.9 Iron deficiency anemia, unspecified; D63.1 Anemia in chronic kidney disease; I87.2 Venous insufficiency (chronic) (peripheral); I77.819 Aortic ectasia, unspecified site; E78.5 Hyperlipidemia, unspecified; R07.81 Pleurodynia; B96.20 Unspecified Escherichia coli [E. coli] as the cause of diseases classified elsewhere; I80.8 Phlebitis and thrombophlebitis of other sites
CPT/HCPCS: 1NP; 2NAP; 36415; 36592; 71045; 71100-RT; 81001; 82436; 86920; 87086; 93005; 93010; 93306; 93970; 96374; 96375; 97110-GO; 97116-GO; 97161-GP; 97530-GO; 99291; J0360; J1644; J1940; J3490; J7060; P9016

== ENCOUNTER 2018-06-28 08:28 | Inpatient (IN) | payer OTHER ==
[~2018-06-28] VITALS: Ht 152.4 cm; Wt 82.2 kg
[~2018-06-28 08:28] MED LIST changes: +AMLODIPINE BESY10 M1 PO; +FISH OIL 1,0001 EACH PO; +ISOSORBIDE MONO30 M1 PO; +LABETALOL HCL100 M1 PO; +MINOXIDIL2.5 M1 PO; +TRAMADOL HCL50 M1 PO
--- NOTE | 2018-06-28 08:42 | ED DYSPNEA/ASTHMA COMPLAINT ---
History of Present Illness General Chief Complaint: Dyspnea (COPD, CHF, Other) Stated Complaint: BIBA, DYSPNEA Source: patient Exam Limitations: no limitations Vital Signs & Intake/Output Vital Signs & Intake/Output Vital Signs Date Time Temp Pulse Resp B/P B/P Pulse O2 O2 Flow FiO2 Mean Ox Delivery Rate 07/08 0649 97.9 61 18 130/60 99 BIPAP 07/08 0602 70 130/60 07/08 0000 BIPAP 07/07 2246 50 92 07/07 2241 50 120/58 07/07 2041 50 120/58 07/07 2039 50 120/58 07/07 1730 52 162/70 07/07 1713 97.6 52 18 162/70 95 Nasal 2.0L Cannula 07/07 1151 56 178/80 07/07 1151 56 178/80 07/07 1151 56 178/80 07/07 1147 178/80 07/07 0800 Nasal 2.0L Cannula ED Intake and Output 07/08 0000 07/07 1200 Intake Total 420 Output Total Balance 420 Intake, Oral 420 Patient 181 lb Weight Weight Bed scale Measurement Method Allergies Coded Allergies: oxycodone (From PERCOCET) (Intermediate, HALLUCINATIONS 06/30/18) Reconcile Medications Amlodipine Besylate 10 MG TABLET 1 TAB PO DAILY HEART (Reported) Aspirin (Children's Aspirin) 81 MG TAB.CHEW 1 TAB PO DAILY HEART HEALTH ( Reported) Cholecalciferol (Vitamin D3) 1,000 UNIT TABLET 1 TAB PO DAILY VITAMIN SUPPORT (Reported) Doxazosin Mesylate (Cardura) 4 MG TABLET 1 TAB PO DAILY HEART (Reported) Furosemide 40 MG TABLET 1 TAB PO DAILY PRN LOWER EXTREMITY SWELLING PRN .. Hydralazine HCl 100 MG TABLET 1 TAB PO TID HIGH BLOOD PRESSURE Isosorbide Mononitrate (Isosorbide Mononitrate ER) 30 MG TAB.ER.24H 90 MG PO DAILY HTN . Labetalol HCl 100 MG TABLET 300 MG PO BID HYPERTENSION . Lisinopril 40 MG TABLET 1 TAB PO DAILY HTN Multivitamin (Multiple Vitamins) 1 EACH TABLET 1 TAB PO DAILY VITAMIN SUPPORT (Reported) Goodyear-3 Fatty Acids/Fish Oil (Fish Oil 1,000 MG Capsule) 340 MG-1,000 MG CAPSULE 1 CAP PO DAILY SUPPLEMENT (Reported) Rosuvastatin Calcium (Crestor) 40 MG TABLET 1 TAB PO DAILY CHOLESTEROL ( Reported) Sevelamer Carbonate (Renvela) 800 MG TABLET 1 TAB PO WM Kidney failure Tramadol HCl 50 MG TABLET 1 TAB PO BIDP PRN PAIN (Reported) Vitamin E 200 UNIT CAPSULE 1 CAP PO DAILY SUPPLEMENT (Reported) Triage Nurses Notes Reviewed? yes Onset: Abrupt Duration: minute(s):, better, constant, continues in ED Severity: severe Prior Episodes/Possible Cause: frequent episodes HPI: Patient presents for evaluation of severe shortness of breath that began this morning. Patient took her pulse ox at home and it was noted to be about 88% on her usual 2 L via nasal cannula. Patient was treated with an albuterol nebulizer prehospital. Past History Travel History Traveled to [facility] past 21 day No Medical History Any Pertinent Medical History? 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 , Age 44; Cause: HTN (hypertension). FATHER, , Age 68; Cause: ASHD (arteriosclerotic heart disease). Hx Contributory? No Review of Systems Review of Systems Constitutional: Reports: no symptoms. EENTM: Reports: no symptoms. Respiratory: Reports: see HPI. Cardiovascular: Reports: no symptoms. GI: Reports: no symptoms. Genitourinary: Reports: no symptoms. Musculoskeletal: Reports: no symptoms. Skin: Reports: no symptoms. Neurological/Psychological: Reports: no symptoms. Hematologic/Endocrine: Reports: no symptoms. Immunologic/Allergic: Reports: no symptoms. All Other Systems: Reviewed and Negative Physical Exam Physical Exam Respiratory: SEE BELOW Comments: Gen.: Well-nourished, well-developed, no acute respiratory distress. Head: Normocephalic, atraumatic. Eyes: Normal inspection bilaterally Ears: Normal inspection bilaterally Nose: Normal inspection Throat/mouth : Moist mucosa Neck: Supple, full range of motion, no goiter Heart: Regular rate and rhythm, no murmurs rubs or gallops Lungs: Decreased air entry bilaterally with faint end expiratory wheezes Chest: Nontender Back: Normal range of motion Abdomen: Soft, nontender, nondistended, normal bowel sounds Extremities: Normal range of motion grossly, equal radial pulses, no cyanosis, bilateral lower extremity 1-2+ pitting edema with chronic skin changes Neurologic: Cranial nerves grossly intact, speech is clear Skin: warm and dry Psychiatric: Calm, cooperative, no apparent delusions or hallucinations Core Measures ACS in differential dx? No CVA/TIA Diagnosis No Sepsis Present: No Sepsis Focused Exam Completed? No Progress Differential Diagnosis: AMI, CHF, COPD, pneumonia, unstable angina, ANEMIA, DEHYDRATION, ELECTROLYTE ABNORMALITY Plan of Care: Orders Procedure Date/time Status Renal Dialysis Diet 07/07 D Active Wound Care/Dressing 07/07 1723 Complete Wound Care/Dressing 07/07 1723 Active UREA NITROGEN 07/07 1214 Complete CBC WITHOUT DIFFERENTIAL 07/07 0832 Complete CALCIUM 07/07 0832 Complete BASIC ELECTROLYTES PLUS BUN&CR 07/07 0832 Complete Anticipated Discharge 07/07 UNK Active Nursing Misc 07/07 UNK Active Heat/Cold Therapy 07/07 UNK Active Elevate 07/07 UNK Active CMS- Neurovascular Checks 07/07 UNK Active OXYGEN 07/06 UNK Complete OXYGEN DAILY CHARGE 07/06 UNK Complete CONTIN. POS. AIRWAY PRESS. CHG 07/06 UNK Complete Current Medications Sig/Duong Start time Last Medication Dose Stop Time Status Admin Tramadol HCl 50 MG Q4-6 PRN PRN 07/07 1600 AC (Ultram) Lisinopril 40 MG DAILY 07/06 0900 AC 07/07 (Prinivil) 1151 Omeprazole 20 MG DAILY AC 07/06 0700 AC 07/08 (Prilosec) 0601 Epoetin Ld 6,000 UNIT MoWeFr PRN 07/02 1815 AC (Epogen Inj 3000 (DIALYSIS PATIENTS) Multivitamins 1 TAB DAILY 07/02 1600 AC 07/07 (Nephrocaps) 1151 Amlodipine Besylate 10 MG 1700 07/01 1700 AC 07/07 (Norvasc) 1730 Doxazosin Mesylate 4 MG 1700 07/01 1700 AC 07/07 (Cardura) 1730 Hydralazine HCl 100 MG Q8 08/22 1400 AC 07/08 (Apresoline) 0602 Aspirin 81 MG DAILY 06/29 0900 AC 07/07 (Aspirin) 1151 Atorvastatin Calcium 40 MG DAILY 06/29 0900 AC 07/07 (Lipitor) 1151 Multivitamins 1 TAB DAILY 06/29 0900 AC 07/07 Therapeutic 1151 (Theragran-M Vitamins Tabs) Labetalol HCl 300 MG BID 06/28 2100 AC 07/07 (Trandate) 2041 Sevelamer Carbonate 800 MG WM 06/28 1700 AC 07/07 (Renvela) 1820 Heparin Sodium 5,000 UNIT Q8 06/28 1400 AC 07/08 (Porcine) 0610 Acetaminophen 650 MG Q6P PRN 06/28 1245 AC 07/07 (Tylenol) 0534 Acetaminophen 1,000 MG Q6P PRN 06/28 1245 AC (Ofirmev) Fish Oil 1,050 MG DAILY 06/28 1228 AC 07/07 (Goodyear-3) 1151 Isosorbide 90 MG DAILY 06/28 1226 AC 07/07 Mononitrate 1151 (Imdur) Laboratory Tests 07/07/18 1247: BUN Cancelled 07/07/18 1225: 07/07/18 0749: Anion Gap 7, Estimated GFR 12 L, BUN/Creatinine Ratio 8.9, Calcium 9.0, CBC w Diff NO MAN DIFF REQ, RBC 2.71 L, MCV 92.3, MCH 30.2, MCHC 32.7 L, RDW 15.9 H , MPV 9.1, Gran % 70.0, Lymphocytes % 16.5 L, Monocytes % 8.8, Eosinophils % 4.1, Basophils % 0.6, Absolute Granulocytes 5.2, Absolute Lymphocytes 1.2, Absolute Monocytes 0.7 H, Absolute Eosinophils 0.3, Absolute Basophils 0 Diagnostic Imaging: Discussed w/RAD: Radiology Read. CXR Impression: PATIENT: GREGOR ALAS PRESENT AGE: 77 PATIENT ACCOUNT NO: [id number] : 42 LOCATION: [facility] ORDERING PHYSICIAN: Kiel Hernandez MD SERVICE DATE: 06/28/18 EXAM TYPE: RAD - XRY-PORTABLE CHEST XRAY EXAMINATION: XR PORTABLE CHEST CLINICAL INFORMATION: Dyspnea. History of COPD and CHF. COMPARISON: Chest radiograph 06/03/2018. TECHNIQUE: Portable frontal view of the chest was obtained. FINDINGS: The cardiac silhouette is grossly enlarged and there is hilar vascular congestion. There are ill-defined interstitial markings involving both lungs with a perihilar and lower lobe predominant distribution. Small effusions and ill- defined opacities primarily involving the lower lobes. Upper mediastinal contours are unremarkable. No acute osseous finding. IMPRESSION: There is cardiomegaly and pulmonary edema consistent with congestive heart failure. The possibility of superimposed pneumonia cannot be definitively excluded on the basis of this examination. DICTATED BY: Neftali Fregoso MD DATE/TIME DICTATED :06/28/18923 EQUIPMENT MAN:ZEKE DATE/TIME TRANSCRIBED:06/28/18923 CONFIDENTIAL, DO NOT COPY WITHOUT APPROPRIATE AUTHORIZATION. < Electronically signed in Other Vendor System> SIGNED BY: Neftali Fregoso MD 06/28/18929 Initial ED EKG: NSR, rate (69), LVH Prior EKG: unchanged Comments: 06/28/2018 9:08:10 AM Gregor's oxygen saturation is 96%. She appears more comfortable although is still a little breathless when answering questions. 06/28/2018 10:10:37 AM I have updated Gregor and daughter on test results. I have a page to Dr. KOTHARI, patient's loop cutter. I just discussed her case with Dr. De La Vega covering for Dr. Long. 06/28/2018 10:12:57 AM patient's case discussed with Dr. KOTHARI. 06/28/2018 11:18:35 AM patient has been treated with Lasix and Nitropaste along with her usual blood pressure medications (administered intravenously were possible). She is now on BiPAP assisted respirations. She is being evaluated by Dr. De La Vega who feels the patient might require emergent dialysis. 06/28/2018 11:22:27 AM patient's case discussed with Dr. James who noted that the patient has been cared for by Dr. Vang in the past. iWlian Vang MD being paged. 06/28/2018 11:37:07 AM patient appears more comfortable with BiPAP. Chest excursion is good and oxygen saturation is 97% with a normal heart rate. 06/28/2018 11:53:03 AM Gregor will be admitted to Dr. Vang's service. 06/28/2018 12:13:[address] De La Vega updated on patient's progress. The patient appears comfortable clinically and states that the mask is helping her considerably. She is much more conversant than upon arrival. Departure Departure Disposition: STILL A PATIENT Condition: Stable Clinical Impression Primary Impression: Congestive heart failure Qualifiers: Heart failure type: unspecified Heart failure chronicity: unspecified Qualified Code: I50.9 - Heart failure, unspecified Secondary Impressions: Renal failure Qualifiers: Renal failure chronicity: unspecified chronicity Qualified Code: N19 - Unspecified kidney failure Referrals: Danielson Anuj DUNN (PCP/Family) Departure Forms: Customer Survey General Discharge Information Prescriptions: Current Visit Scripts Lisinopril 1 TAB PO DAILY #30 TAB Admission Note Spoke With: Taj DUNN,Wilian Hampton Documentation of Exam: Documentation of any treatments & extenuating circumstances including Concerns Regarding Discharge (functional status, medication knowledge or non-compliance, living conditions, etc.) that warrant an admission rather than observation: Patient presents with severe shortness of breath. Emergency department evaluation reveals acute renal failure and congestive heart failure/pulmonary edema. Patient is critically ill and requires hospitalization in the ICU, BiPAP support of respirations, oxygen supplementation, nephrology consultation with urgent dialysis. Patient cannot be treated as an outpatient. Given the patient 's advanced age, medical comorbidities and acute presentation she will require multiple day hospitalization. Critical Care Note Critical Care Note Critical Care Time: 75-104 min
[2018-06-28 09:22] LABS: ABSOLUTE BASOPHIL COUNT 0.1 /CUMM (0.0-0.2); ABSOLUTE EOSINOPHIL COUNT 0.4 /CUMM (0.0-0.7); ABSOLUTE LYMPH COUNT 0.7 /CUMM (1.2-3.4); ABSOLUTE MONOCYTE COUNT 0.5 /CUMM (0.10-0.60); BASOPHIL % 0.9 % (0.0-2.0); EOSINOPHIL % 5.6 % (0-5); GRANULOCYTE % 77.7 % (42.2-75.2); HEMATOCRIT 23.3 % (37-47); MEAN CORPUSCULAR HGB 30.3 PG (27.0-31.0); MEAN CORPUSCULAR VOLUME 91.9 FL (81.0-99.0); MEAN PLATELET VOLUME 10.1 FL (7.4-10.4); PLATELET COUNT 201 /CUMM (130-400); RBC DISTRIBUTION WIDTH 15.1 % (11.5-14.5); RED BLOOD CELL CT 2.53 /CUMM (4.20-5.40); WHITE BLOOD CELL COUNT 7.8 /CUMM (4.8-10.8)
--- NOTE | 2018-06-28 09:30 | RADIOLOGY REPORT ---
EXAMINATION: XR PORTABLE CHEST CLINICAL INFORMATION: Dyspnea. History of COPD and CHF. COMPARISON: Chest radiograph 06/03/2018. TECHNIQUE: Portable frontal view of the chest was obtained. FINDINGS: The cardiac silhouette is grossly enlarged and there is hilar vascular congestion. There are ill-defined interstitial markings involving both lungs with a perihilar and lower lobe predominant distribution. Small effusions and ill-defined opacities primarily involving the lower lobes. Upper mediastinal contours are unremarkable. No acute osseous finding. IMPRESSION: There is cardiomegaly and pulmonary edema consistent with congestive heart failure. The possibility of superimposed pneumonia cannot be definitively excluded on the basis of this examination.
--- NOTE | 2018-06-28 11:32 | History & Physical ---
General Information and HPI MD Statement: I have seen and personally examined GREGOR ALAS and documented this H&P. The patient is a 77 year old F who presented with a patient stated chief complaint of [DYSPNEA]. Source of Information: patient, family, old records Exam Limitations: no limitations History of Present Illness: This is a 77-year-old female with past medical history of heart failure with preserved ejection fraction (65% EF, stage I diastolic dysfunction), CKD stage 4 , chronic anemia, chronic venous insufficiency, hypertension, hyperlipidemia was biba with chief complain of shortness of breath. She was recently discharged 05/24/2018-06/10/2018 after being treated for acute hypoxic respiratory failure secondary to CHF exacerbation along with hypertensive urgency. Currently the patient was experiencing shortness of breath that began on the morning prior to presentation, she took her pulse oximetry at home and found her saturations to be the 80% while on 2 L, therefore her daughter who was there increased it to 3 L and saturations improved to 89% she used the albuterol nebulizer while at home however her sob continues therefore she presented to the emergency department. Of note,she was recently discharged from [facility] after being treated for CHF/COPD and volume overload due to CKD.Her lasix was increased from 40 mg OD to 40 BID by her outpatient asset protection professional 8 days prior to todays presentation and she also received additional 80 mg iv 7 days prior to today. She was doing okay after recent discharge, until the morning of admission when she began to experience worsening shortness of breath again. She has being considered to be a candidate for dialysis as this symptoms are thought to be mainly secondary to volume overload from CKD. Allergies/Medications Allergies: Coded Allergies: NO KNOWN ALLERGIES (UNKNOWN 04/24/17) Home Med list Amlodipine Besylate 10 MG TABLET 1 TAB PO DAILY HEART (Reported) Aspirin (Children's Aspirin) 81 MG TAB.CHEW 1 TAB PO DAILY HEART HEALTH ( Reported) Cholecalciferol (Vitamin D3) 1,000 UNIT TABLET 1 TAB PO DAILY VITAMIN SUPPORT (Reported) Doxazosin Mesylate (Cardura) 4 MG TABLET 1 TAB PO DAILY HEART (Reported) Furosemide 40 MG TABLET 1 TAB PO DAILY PRN LOWER EXTREMITY SWELLING PRN .. Hydralazine HCl 100 MG TABLET 1 TAB PO TID HIGH BLOOD PRESSURE Isosorbide Mononitrate (Isosorbide Mononitrate ER) 30 MG TAB.ER.24H 90 MG PO DAILY HTN . Labetalol HCl 100 MG TABLET 300 MG PO BID HYPERTENSION . Multivitamin (Multiple Vitamins) 1 EACH TABLET 1 TAB PO DAILY VITAMIN SUPPORT (Reported) [place]-3 Fatty Acids/Fish Oil (Fish Oil 1,000 MG Capsule) 340 MG-1,000 MG CAPSULE 1 CAP PO DAILY SUPPLEMENT (Reported) Rosuvastatin Calcium (Crestor) 40 MG TABLET 1 TAB PO DAILY CHOLESTEROL ( Reported) Sevelamer Carbonate (Renvela) 800 MG TABLET 1 TAB PO WM Kidney failure Tramadol HCl 50 MG TABLET 1 TAB PO BIDP PRN PAIN (Reported) Vitamin E 200 UNIT CAPSULE 1 CAP PO DAILY SUPPLEMENT (Reported) Compliance With Home Meds: FAIR Past History Travel History Traveled to [place] past 21 day No Medical History Neurological: NONE EENT: NONE Cardiovascular: diastolic CHF, hypertension, hyperlipidemia, chronic venous insuffcny Respiratory: NONE Gastrointestinal: C.DIFF Hepatic: NONE Renal: chronic kidney disease Musculoskeletal: fracture, LUMBAR FX Psychiatric: NONE Endocrine: NONE Blood Disorders: anemia 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 , Age 44; Cause: HTN (hypertension). FATHER, , Age 68; Cause: ASHD (arteriosclerotic heart disease). Psychosocial History Where do you live? Home Who Do You Live With? self Services at Home: None Primary Language: Anguill[place] Smoking Status: Never Smoked ETOH Use: denies use Illicit Drug Use: denies illicit drug use Living Will? no Power of Baseball Hand Sewer/HCP? no Functional Ability ADLs Independent: dressing, eating, toileting, bathing. 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 Review of Systems Review of Systems Constitutional: Reports: malaise, weakness. EENTM: Denies: blurred vision, double vision, visual changes, eye pain, eye drainage. Cardiovascular: Reports: edema, orthopena, peripheral edema. Denies: chest pain, palpitations, syncope. Respiratory: Reports: cough, orthopnea, short of breath. Denies: hemoptysis, sputum production, stridor, wheezing. GI: Reports: bloating, distention, nausea. Denies: abdominal pain, constipation, diarrhea, bowel incontinence, melena. Genitourinary: Reports: no symptoms. Musculoskeletal: Reports: back pain. Denies: gout, joint pain, joint swelling, muscle pain. Skin: Reports: no symptoms. Neurological/Psychological: Reports: no symptoms. Exam & Diagnostic Data Last 24 Hrs of Vital Signs/I&O Vital Signs Date Time Temp Pulse Resp B/P B/P Pulse O2 O2 Flow FiO2 Mean Ox Delivery Rate 06/28 1216 65 95 06/28 1141 68 21 184/78 96 BIPAP 06/28 1118 186/82 06/28 1117 65 97 06/28 1117 64 25 186/82 95 BIPAP 06/28 1100 95 Nasal 4.0L Cannula 06/28 1024 97.0 70 18 94 Nasal 3.0L Cannula 06/28 0955 65 20 170/72 95 Nasal 4.0L Cannula 06/28 0925 94 Nasal 4.0L Cannula 06/28 0904 96 Nasal 4.0L Cannula 06/28 0854 98.6 83 22 174/77 96 Nasal 4.0L Cannula Intake & Output 06/28 1600 06/28 0800 06/28 0000 Intake Total 0 Output Total 400 Balance -400 Intake, Oral 0 Output, Urine 400 Physical Exam General Appearance Alert, Oriented X3, on bipap, puffy face and periorbital puffiness Skin No Rashes, No Breakdown Skin Temp/Moisture Exam: Cool/Dry Sepsis Skin Exam (color): Pale HEENT Atraumatic, PERRLA, EOMI Neck Supple, No thryomegaly Cardiovascular Normal S1, Normal S2, b/l crackles + Lungs Clear to Auscultation, Normal Air Movement, b/l crackles Abdomen Normal Bowel Sounds, Soft, No Tenderness Neurological Normal Gait, Normal Speech, Strength at 5/5 X4 Ext, Normal Tone Extremities edema 2+ Last 24 Hrs of Labs/Ray: Laboratory Tests 06/28/18 0910: Anion Gap 13, Estimated GFR 7 L, BUN/Creatinine Ratio 15.3, Glucose 105 H, Calcium 8.6, Troponin I 0.05, PT 13.8 H, INR 1.26 H, APTT 31, CBC w Diff NO MAN DIFF REQ, RBC 2.53 L, MCV 91.9, MCH 30.3, MCHC 33.0, RDW 15.1 H, MPV 10.1, Gran % 77.7 H, Lymphocytes % 9.0 L, Monocytes % 6.8, Eosinophils % 5.6 H, Basophils % 0.9, Absolute Granulocytes 6.0, Absolute Lymphocytes 0.7 L, Absolute Monocytes 0.5, Absolute Eosinophils 0.4, Absolute Basophils 0.1 Diagnostic Data EKG Results Normal sinus rhythm, rate of 69, regular, left axis deviation, no acute ST-T wave changes, inversions in V4 in addition to be 1 and AV are present in the old EKG as well, QTC of 497 Assessment/Plan Assessment: In summary, this is a 77-year-old female with past medical history of heart failure with preserved ejection fraction, stage I diastolic dysfunction, CKD stage IV, chronic anemia, chronic venous insufficiency ,hypertension, hyperlipidemia who was brought in by ambulance with chief complaint of worsening shortness of breath starting the morning of admission. Vitals on admission temperature of 98.6, pulse of 68-83, respiration of 20-25, blood pressure systolic 170-186, diastolic 77-82. 95% on BiPAP Relevant labs -no white count, H/H of 7.7/23.3 (MCV of 91.9) ( baseline hemoglobin around 7.5), platelet of 201 Electrolytes : sodium of 145, potassium of 3.4, chloride of 112, bicarbonate 20 , BUN/creatinine 87/5.9 (4.2 on 06/10/2018, 3.9 in May 2018, which been around the range of 3 and then had 2016) month glucose of 105, calcium of 8.6, initial set of troponin -0.05 Problem list along with assessment and plan. Problem #1 Acute exacerbation of heart failure with preserved ejection fraction. * chest x-ray consistent with cardiomegaly and pulmonary edema consistent with congestive heart failure. * probnp pending * Recent echocardiogram on normal left ventricular size, EF of 60-65%, moderately increased left ventricular wall thickness month, diastolic heart failure and moderate pulmonary hypertension. * Patient was initially discharged on June 10 on 40 mg, however recently the Lasix dosage has been increased to 40 mg twice a day, received additional 60 mg IV Lasix while at the emergency department along with topical nitrates. * cardiology consult, will hold off repeating echocardiogram for now. * Continue to monitor intake/output, daily weights. #2 Acute hypoxic respiratory failure * 2/2 to CHF exacerbation and voluem overload from CKD * ct diuresis * ct bipap * ct to monitor o2 sats * If worsening get an ABG. * trc/nebulsations * She received iv methyprednisolone in the ED. #3 Hypertension * She received 10 mg of Norvasc, 20 mg of IV hydralazine and 10 mg of IV labetalol * She comes in with a pressure of 170/72, she has tendency to have high blood pressure and is on multiple medications to control high blood pressure including isosorbide mononitrate 90 mg once daily, labetalol 300 mg twice a day, Lasix 40 mg twice a day, hydralazine 100 mg 3 times a day, doxazosin 4 mg tablet once daily and amlodipine 10 mg once daily. * Her home medication of minoxidil was recently discontinued by her outpatient asset protection professional, for not taking it anymore. * Will continue hydralazine and labetalol today and will gradually resume other home blood pressure medications from 06/29, unless consider restarting it as suggested by blood pressure. * EKG does show some changes of left ventricular hypertrophy, no acute ST-T wave changes from prior EKG. * ct to monitor blood pressure * cardio consult. #4 CKD - 4 * Gradually worsening BUN and creatinine, chronic anemia secondary to chronic kidney disease, is being considered for dialysis on previous admission as well, and nephrology consulted and plan is to dialyze today and tomorrow and possibly on Thursday as well. * We'll keep her nothing by mouth as she will need IR guided catheter placement. #5 chronic anemia. * is likely secondary to renal origin. * Guaiac all stools. * Epogen 6000 units 3 times a week * ct to monitor #6 Chest pain * Complains of some chest discomfort * EKG initially did not show any acute ST-T wave changes, troponin was negative * will repeat another EKG and troponins at 1500. #7 HLD * ct Crestor #8 Chronic lower extremtiy edema * Chronic edema is secondary to a combination of chronic venous insufficiency along with diastolic dysfunction, she says that her edema has been better after recent increase in Lasix dosage. * Do not suspect any DVT as this is her baseline edema and there is no acute change. * Continue diuresis per cardio. #9 Christofer On cpap * ct to monitor * currently on bipap FC heparin dvt px PP As Ranked By This Provider Problem List: 1. HTN/DLD/CKD/ANEMIA 2. Leg swelling 3. Uncontrolled hypertension 4. Acute on chronic renal insufficiency 5. Acute hypoxemic respiratory failure 6. Chronic kidney disease 7. Peripheral edema 8. CHF (congestive heart failure) Core Measures/Misc (07/26) Acute Coronary Syndrome ACS Diagnosis: No Congestive Heart Failure Congestive Heart Failure Diagnosis Yes Last Known EF % 60 No CONNIE/ARB d/t Allergy Exists Cerebrovascular Accident CVA/TIA Diagnosis: No VTE (View Protocol) VTE Risk Factors No risk factors No Mechanical VTE Prophylaxis d/t Other No VTE Pharm Prophylaxis d/t Other Sepsis (View protocol) Sepsis Present: No If YES complete Sepsis Event Note If YES complete Sepsis Event Note Resident Review Statement Resident Statement: admitted by resident
[2018-06-28 11:43] LABS: PT 13.8 SEC (9.4-12.5); PTT 31 SEC (25-37)
--- NOTE | 2018-06-28 12:05 | Cons- Nephrology ---
General Information and HPI Consulting Request Date of Consult: 06/28/18 Requested By: Jeancarlos Crain MD Reason for Consult: Acute dyspnea in a patient with near end-stage renal disease Source of Information: patient, family, old records Exam Limitations: clinical condition History of Present Illness: This 77-year-old woman has a history of progressive kidney failure. She has been followed by Dr. Shlomo Long in the office. She has a history of a monoclonal gammopathy, also diabetes, hypertension and obesity. She was recently released from [facility]. At that time, she had been found to have worsening renal failure. Plans were underway for her to have vein mapping of her left upper extremity for creation of an access either an aVF or an AVG. she developed sudden shortness of breath without chest pain, without cough mandating that EMS be summoned and that she be transported to the emergency room. In the emergency room, she was found to be profoundly short of breath eventually requiring the placement of a BiPAP machine. In addition to this sudden shortness of breath, she likewise has had a poor appetite. Nothing tastes right. She is eating only small bits. She also is just felt lower extremity edema. On her previous hospital stay per her family, plans as noted were for creation of an access site it had been said to the patient and to the family that she would likely need to start dialysis via a catheter prior to that access having been placed and more importantly matured enough to use for dialysis. Currently we discussed starting dialysis both she and the family are agreeable. Allergies/Medications Allergies: Coded Allergies: NO KNOWN ALLERGIES (UNKNOWN 04/24/17) Home Med List: Amlodipine Besylate 10 MG TABLET 1 TAB PO DAILY HEART (Reported) Aspirin (Children's Aspirin) 81 MG TAB.CHEW 1 TAB PO DAILY HEART HEALTH ( Reported) Cholecalciferol (Vitamin D3) 1,000 UNIT TABLET 1 TAB PO DAILY VITAMIN SUPPORT (Reported) Doxazosin Mesylate (Cardura) 4 MG TABLET 1 TAB PO DAILY HEART (Reported) Furosemide 40 MG TABLET 1 TAB PO DAILY PRN LOWER EXTREMITY SWELLING PRN .. Hydralazine HCl 100 MG TABLET 1 TAB PO TID HIGH BLOOD PRESSURE Isosorbide Mononitrate (Isosorbide Mononitrate ER) 30 MG TAB.ER.24H 90 MG PO DAILY HTN . Labetalol HCl 100 MG TABLET 300 MG PO BID HYPERTENSION . Minoxidil 2.5 MG TABLET 5 MG PO DAILY htn . Multivitamin (Multiple Vitamins) 1 EACH TABLET 1 TAB PO DAILY VITAMIN SUPPORT (Reported) [place]-3 Fatty Acids/Fish Oil (Fish Oil 1,000 MG Capsule) 340 MG-1,000 MG CAPSULE 1 CAP PO DAILY SUPPLEMENT (Reported) Rosuvastatin Calcium (Crestor) 40 MG TABLET 1 TAB PO DAILY CHOLESTEROL ( Reported) Sevelamer Carbonate (Renvela) 800 MG TABLET 1 TAB PO WM Kidney failure Tramadol HCl 50 MG TABLET 1 TAB PO BIDP PRN PAIN (Reported) Vitamin E 200 UNIT CAPSULE 1 CAP PO DAILY SUPPLEMENT (Reported) Current Medications: Current Medications Sig/Duong Start time Last Medication Dose Route Stop Time Status Admin Albuterol Sulfate 3 ML ONCE ONE 06/28 1130 DC 06/28 INH 06/28 1131 1100 Albuterol Sulfate 3 ML ONCE ONE 06/28 0930 DC 06/28 INH 06/28 0931 0920 Amlodipine Besylate 0 .STK-MED ONE 06/28 1113 DC PO Amlodipine Besylate 10 MG ONCE ONE 06/28 1100 DC 06/28 PO 06/28 1101 1118 Furosemide 0 .STK-MED ONE 06/28 0949 DC IV Furosemide 60 MG ONCE ONE 06/28 0945 DC 06/28 IV PUSH 06/28 0946 0955 Hydralazine HCl 0 .STK-MED ONE 06/28 1113 DC .ROUTE Hydralazine HCl 20 MG ONCE ONE 06/28 1100 DC 06/28 IV 06/28 1101 1118 Ipratropium Wheeler 2.5 ML ONCE ONE 06/28 0845 DC 06/28 INH 06/28 0846 0920 Labetalol HCl 0 .STK-MED ONE 06/28 1114 DC IV Labetalol HCl 10 MG ONCE ONE 06/28 1100 DC 06/28 IV 06/28 1101 1146 Methylprednisolone 125 MG ONCE ONE 06/28 0845 DC 06/28 IV 06/28 0846 0854 Methylprednisolone 0 .STK-MED ONE 06/28 0839 DC .ROUTE Nitroglycerin 0 .STK-MED ONE 06/28 1026 DC TOP Nitroglycerin 1 GM ONCE ONE 06/28 1000 DC 06/28 TOP 06/28 1001 1028 Review of Systems Review of Systems Constitutional: Denies: chills, diaphoresis, fever, malaise. EENTM: Denies: ear discharge, ear pain, hearing changes, nasal congestion. Cardiovascular: Reports: edema, orthopena, peripheral edema. Denies: palpitations, syncope. Respiratory: Reports: cough, orthopnea, short of breath. Denies: hemoptysis, sputum production. GI: Reports: nausea. Denies: abdominal pain, constipation, diarrhea, distention, bowel incontinence, melena. Genitourinary: Denies: discharge, dysuria, frequency. Musculoskeletal: Reports: no symptoms. Skin: Reports: no symptoms. Denies: rash. Neurological/Psychological: Denies: depressed, emotional problems, headache, numbness, tingling, tremors. Hematologic/Endocrine: Denies: bruising, bleeding, polyuria, polydipsia. 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 , Age 44; Cause: HTN (hypertension). FATHER, , Age 68; Cause: ASHD (arteriosclerotic heart disease). Psychosocial History Who Do You Live With? self Services at Home: None Primary Language: Welsh Living Will? no Power of Paper Baling Machine Operator/HCP? no Functional Ability ADLs Independent: dressing, eating, toileting, bathing. 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 Exam & Diagnostic Data Vital Signs and I&O Vital Signs Date Time Temp Pulse Resp B/P B/P Pulse O2 O2 Flow FiO2 Mean Ox Delivery Rate 06/28 1141 68 21 184/78 96 BIPAP 06/28 1118 186/82 06/28 1117 65 97 06/28 1117 64 25 186/82 95 BIPAP 06/28 1100 95 Nasal 4.0L Cannula 06/28 1024 97.0 70 18 94 Nasal 3.0L Cannula 06/28 0955 65 20 170/72 95 Nasal 4.0L Cannula 06/28 0925 94 Nasal 4.0L Cannula 06/28 0904 96 Nasal 4.0L Cannula 06/28 0854 98.6 83 22 174/77 96 Nasal 4.0L Cannula Intake & Output 06/28 040 Intake Total 0 Output Total 400 Balance -400 Intake, Oral 0 Output, Urine 400 Physical Exam General Appearance: anxious, severe distress, appears to be tiring Head: atraumatic, normal appearance, active bleeding Eyes: Bilateral: PERRL, EOMI, pale conjunctivae. Ears, Nose, Throat: normal pharynx Neck: normal inspection, supple, trachea mid line Respiratory: crackles, wheezing, rales, respiratory distress Cardiovascular: regular rate/rhythm, murmur Peripheral Pulses: 2+ popliteal (R), 2+ popliteal (L), 2+ tibialis posterior (R), 2+ tibialis posterior (L), 2+ dorsalis pedis (R), 2+ dorsalis pedis (L) Gastrointestinal: normal bowel sounds, soft, non-tender, no organomegaly Back: sacral edema Extremities: normal inspection, swelling Skin: intact, normal color Results Pertinent Lab Results: Laboratory Tests 06/28 09 Chemistry Sodium (137 - 145 mmol/L) 145 Potassium (3.5 - 5.1 mmol/L) 3.4 L Chloride (98 - 107 mmol/L) 112 H Carbon Dioxide (22 - 30 mmol/L) 20 L Anion Gap (5 - 16) 13 BUN (7 - 17 mg/dL) 87 H Creatinine (0.5 - 1.0 mg/dL) 5.9 *H Estimated GFR (>60 ml/min) 7 L BUN/Creatinine Ratio (7 - 25 %) 15.3 Glucose (65 - 99 mg/dL) 105 H Calcium (8.4 - 10.2 mg/dL) 8.6 Troponin I (< 0.11 ng/ml) 0.05 Coagulation PT (9.4 - 12.5 SEC) 13.8 H INR (0.90 - 1.19) 1.26 H APTT (25 - 37 SEC) 31 Hematology CBC w Diff NO MAN DIFF REQ WBC (4.8 - 10.8 /CUMM) 7.8 RBC (4.20 - 5.40 /CUMM) 2.53 L Hgb (12.0 - 16.0 G/DL) 7.7 L Hct (37 - 47 %) 23.3 L MCV (81.0 - 99.0 FL) 91.9 MCH (27.0 - 31.0 PG) 30.3 MCHC (33.0 - 37.0 G/DL) 33.0 RDW (11.5 - 14.5 %) 15.1 H Plt Count (130 - 400 /CUMM) 201 MPV (7.4 - 10.4 FL) 10.1 Gran % (42.2 - 75.2 %) 77.7 H Lymphocytes % (20.5 - 51.1 %) 9.0 L Monocytes % (1.7 - 9.3 %) 6.8 Eosinophils % (0 - 5 %) 5.6 H Basophils % (0.0 - 2.0 %) 0.9 Absolute Granulocytes (1.4 - 6.5 /CUMM) 6.0 Absolute Lymphocytes (1.2 - 3.4 /CUMM) 0.7 L Absolute Monocytes (0.10 - 0.60 /CUMM) 0.5 Absolute Eosinophils (0.0 - 0.7 /CUMM) 0.4 Absolute Basophils (0.0 - 0.2 /CUMM) 0.1 Imaging/Other Studies: PATIENT: GREGOR ALAS PRESENT AGE: 77 PATIENT ACCOUNT NO: [id number] : 42 LOCATION: [facility] ORDERING PHYSICIAN: Kiel Hernandez MD SERVICE DATE: 06/28/18 EXAM TYPE: RAD - XRY-PORTABLE CHEST XRAY EXAMINATION: XR PORTABLE CHEST CLINICAL INFORMATION: Dyspnea. History of COPD and CHF. COMPARISON: Chest radiograph 06/03/2018. TECHNIQUE: Portable frontal view of the chest was obtained. FINDINGS: The cardiac silhouette is grossly enlarged and there is hilar vascular congestion. There are ill-defined interstitial markings involving both lungs with a perihilar and lower lobe predominant distribution. Small effusions and ill-defined opacities primarily involving the lower lobes. Upper mediastinal contours are unremarkable. No acute osseous finding. IMPRESSION: There is cardiomegaly and pulmonary edema consistent with congestive heart failure. The possibility of superimposed pneumonia cannot be definitively excluded on the basis of this examination. DICTATED BY: Neftali Fregoso MD DATE/TIME DICTATED:06/28/18923 ALUMINA PLANT SUPERVISOR:ZEKE DATE/TIME TRANSCRIBED:06/28/18923 CONFIDENTIAL, DO NOT COPY WITHOUT APPROPRIATE AUTHORIZATION. <Electronically signed in Other Vendor System> SIGNED BY: Neftali Fregoso MD 06/2826 Assessment/Plan Assessment/Recommendations Assessment: 1. Chronic kidney disease stage IV actually more stage V likely needing to start dialysis urgently. She was in the hospital rather recently. She clearly is coming in with shortness of breath requiring placement of a BiPAP mask. She has received furosemide, but I think the definitive way of addressing volume status will be to offer urgent hemodialysis. In addition to the sudden shortness of breath, she has not been eating well she has been suffering essentially from failure to thrive thus, in a very real sense, 0 to indications for the initiation of renal replacement therapy. 2. Diabetes mellitus 3. Hypertension 4. Obesity 5. Monoclonal gammopathy of unknown significance. 6. Anemia 7. Hypokalemia 8. Pulmonary edema please see #1. She is received furosemide. I think she would benefit by ultrafiltration with hemodialysis. 9. Consent has been obtained from the patient. She is agreeable to starting dialysis. 10. Interventional radiology has been asked to place a catheter. Recommendations: 1. Begin dialysis after catheter placement 2. Given her degree of dyspnea with the placement of the BiPAP I think she would be better served by being monitored in the ICU until her breathing has improved enough for her to stop the BiPAP 3. Anemia. Will begin Epogen 6000 units 3 times a week. We will give 3 consecutive days in a row 4. She will be dialyzed today, tomorrow and again on Thursday.
--- NOTE | 2018-06-28 12:56 | Cons- CRCU ---
General Information and HPI Consulting Request Date of Consult: 06/28/18 Requested By: ED History of Present Illness: This is a 76-year-old female with past medical history of heart failure with preserved ejection fraction (65% EF, stage 2 diastolic dysfunction), CKD stage 5 , chronic anemia, chronic venous insufficiency, type 2 diabetes mellitus, hypertension, hyperlipidemia was biba with chief complain of shortness of breath. She was recently discharged 05/24/2018-06/10/2018 after being treated for acute hypoxic respiratory failure secondary to CHF exacerbation along with hypertensive urgency. Currently the patient was experiencing shortness of breath that began on the morning prior to presentation, she took her pulse oximetry at home and found her saturations to be the 8% while on 2 L, she used the albuterol nebulizer while at home however the saturations continued to remain low therefore she presented to the emergency department. Since being in the ER she is now on NIV Allergies/Medications Allergies: Coded Allergies: NO KNOWN ALLERGIES (UNKNOWN 04/24/17) Home Med List: Amlodipine Besylate 10 MG TABLET 1 TAB PO DAILY HEART (Reported) Aspirin (Children's Aspirin) 81 MG TAB.CHEW 1 TAB PO DAILY HEART HEALTH ( Reported) Cholecalciferol (Vitamin D3) 1,000 UNIT TABLET 1 TAB PO DAILY VITAMIN SUPPORT (Reported) Doxazosin Mesylate (Cardura) 4 MG TABLET 1 TAB PO DAILY HEART (Reported) Furosemide 40 MG TABLET 1 TAB PO DAILY PRN LOWER EXTREMITY SWELLING PRN .. Hydralazine HCl 100 MG TABLET 1 TAB PO TID HIGH BLOOD PRESSURE Isosorbide Mononitrate (Isosorbide Mononitrate ER) 30 MG TAB.ER.24H 90 MG PO DAILY HTN . Labetalol HCl 100 MG TABLET 300 MG PO BID HYPERTENSION . Multivitamin (Multiple Vitamins) 1 EACH TABLET 1 TAB PO DAILY VITAMIN SUPPORT (Reported) [place]-3 Fatty Acids/Fish Oil (Fish Oil 1,000 MG Capsule) 340 MG-1,000 MG CAPSULE 1 CAP PO DAILY SUPPLEMENT (Reported) Rosuvastatin Calcium (Crestor) 40 MG TABLET 1 TAB PO DAILY CHOLESTEROL ( Reported) Sevelamer Carbonate (Renvela) 800 MG TABLET 1 TAB PO WM Kidney failure Tramadol HCl 50 MG TABLET 1 TAB PO BIDP PRN PAIN (Reported) Vitamin E 200 UNIT CAPSULE 1 CAP PO DAILY SUPPLEMENT (Reported) Review of Systems Review of Systems Constitutional: Reports: see HPI. Past History Travel History Traveled to [place] past 21 day No Medical History Neurological: NONE EENT: NONE Cardiovascular: diastolic CHF, hypertension, hyperlipidemia, chronic venous insuffcny Respiratory: NONE Gastrointestinal: C.DIFF Hepatic: NONE Renal: chronic kidney disease Musculoskeletal: fracture, LUMBAR FX Psychiatric: NONE Endocrine: NONE Blood Disorders: anemia Cancer(s): NONE SAW BOSS/Reproductive: NONE Surgical History Surgical History: appendectomy (age 19), TONSILS podiatric surgery Family History Relations & Conditions If Any: MOTHER (CVA/obese). , Age 44; Cause: HTN (hypertension). FATHER, , Age 68; Cause: ASHD (arteriosclerotic heart disease). Psychosocial History Who Do You Live With? self Services at Home: None Primary Language: Divehi Living Will? 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 no Functional Ability ADLs Independent: dressing, eating, toileting, bathing. 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 Exam & Diagnostic Data Last 24 Hrs of Vital Signs/I&O Vital Signs Date Time Temp Pulse Resp B/P B/P Pulse O2 O2 Flow FiO2 Mean Ox Delivery Rate 06/28 1216 65 95 06/28 1141 68 21 184/78 96 BIPAP 06/28 1118 186/82 06/28 1117 65 97 06/28 1117 64 25 186/82 95 BIPAP 06/28 1100 95 Nasal 4.0L Cannula 06/28 1024 97.0 70 18 94 Nasal 3.0L Cannula 06/28 0955 65 20 170/72 95 Nasal 4.0L Cannula 06/28 0925 94 Nasal 4.0L Cannula 06/28 0904 96 Nasal 4.0L Cannula 06/28 0854 98.6 83 22 174/77 96 Nasal 4.0L Cannula Intake & Output 06/28 1600 06/28 0800 06/28 0000 Intake Total 0 Output Total 400 Balance -400 Intake, Oral 0 Output, Urine 400 Last 48 Hrs of Labs/Ray: Laboratory Tests 06/28/18 0910: Anion Gap 13, Estimated GFR 7 L, BUN/Creatinine Ratio 15.3, Glucose 105 H, Calcium 8.6, Troponin I 0.05, PT 13.8 H, INR 1.26 H, APTT 31, CBC w Diff NO MAN DIFF REQ, RBC 2.53 L, MCV 91.9, MCH 30.3, MCHC 33.0, RDW 15.1 H, MPV 10.1, Gran % 77.7 H, Lymphocytes % 9.0 L, Monocytes % 6.8, Eosinophils % 5.6 H, Basophils % 0.9, Absolute Granulocytes 6.0, Absolute Lymphocytes 0.7 L, Absolute Monocytes 0.5, Absolute Eosinophils 0.4, Absolute Basophils 0.1 Assessment/Plan CRCU Impression/Plan: SIGNIFICANT DATA All the blood work reviewed in the computer creatinine is high BUN is significantly elevated anion gap is 13 lactic acid pending other blood work pending proBNP was elevated before White count 7.8 hemoglobin 7.7 INR was 1.26 Chest x-ray showed significant pulmonary edema Previous abdominal ultrasound showed abdominal aortic aneurysm [address] scan of the chest done few weeks ago showed that she had congestive heart failure, stable mediastinal lymphadenopathy, abnormally enlarged right axillary lymph node which has been present from before and a 4.2 cm aneurysm Prior echocardiogram did reveal normal ejection fraction with severe diastolic dysfunction with high LVEDP, mild mitral stenosis with moderate pulmonary hypertension Physical Exam General Appearance: Alert, Oriented X3, Cooperative, on BiPAP with moderate distress distress HEENT: Atraumatic Neck: Supple, JVD appeared elevated Cardiovascular: Regular Rate, Normal S1, Normal S2, faint diastolic murmur noted Lungs: OVERALL DECREASED AIR ENTRY AT THE LUNG BASES,. wheezing noted bilaterally, with significant crackles Abdomen: Normal Bowel Sounds, Soft, No Tenderness Neurological: Normal Speech, Normal Tone, Sensation Intact Extremities: EXTREMITY EDEMA IMPRESSION This is a 77-year-old lady with hypertension, hyperlipidemia, type 2 diabetes, chronic significant anemia, worsening chronic kidney diseasestage 5, chronic venous insufficiency, significant diastolic dysfunction with recurrent diastolic heart failure, recurrent mechanical fall at home, probable neuropathy, previous colon polyps, morbid obesity with worsening performance status, significant lumbosacral degeneration with chronic L1 fracture, chronic low back pain, chronic anemia, chronic lower extremity edema, morbid obesity with obstructive sleep apnea history not on CPAP regularly now has * Acute diastolic heart failure with acute hypoxemic respiratory failure now requiring noninvasive ventilation. Patient does have significant pulmonary edema. This is compounded by worsening renal failure now with stage V disease. * Severe diastolic disease with high LVEDP with mitral stenosis which is compounding the issue * Morbid obesity with NITHIN * Anemia of chronic disease which is now made worse by renal failure * Significant back pain and gait instability with recent fall aswell rule out significant neuropathy probably from diabetes, compounded by significant degenerative joint and disc disease in the lumbosacral area with L5 nerve root involvement in the left with right foraminal stenosis. * Aneurysmal of abd aorta * Hypertension, hyperlipidemia, diabetes relatively stable at this time * Chronic venous insufficiency with lower extremity edema * Chronic esbl colonization of the bladder with no active evidence of sepsis at this time PLAN Admit to ICU Dialysis today Cont bipap prn BP control, sig HTN COnt statin and other drugs ASA HOld lasix Urint culture no strickland needed, isolation for esbl Po ppi for now Check icu bundle and TFTS Will follow closely Pt is critically ill 40 mins Consult Acknowledgment - Thank you for your consult request.
[2018-06-28 14:00] VITALS: BP 178/84
[2018-06-28 16:00] VITALS: BP 170/80
--- NOTE | 2018-06-28 16:37 | INTERVENTIONAL RADIOLOGY RPT ---
PROCEDURE: ULTRASOUND AND FLUOROSCOPICALLY GUIDED RIGHT INTERNAL JUGULAR VEIN TEMPORARY DIALYSIS CATHETER PLACEMENT INTERVENTIONAL RADIOLOGIST: Germain Black M.D. CLINICAL HISTORY: 77-year-old female requiring temporary dialysis catheter for renal failure. COMPARISON: Chest CT 06/03/2018 MEDICATION: 1% lidocaine was used for local anesthetic. FLUOROSCOPY TIME: 66 seconds NUMBER OF IMAGES: 1 image TECHNIQUE: Informed consent was obtained from the patient prior to the procedure. During this process, the procedure and potential alternatives were explained along with the intended outcome and benefits. The risks of the procedure, including the possibility of an unsuccessful procedure, as well as the risk of not doing the procedure were discussed. The patient was given the opportunity to ask questions regarding the procedure. A consent form which documents this discussion was placed in the medical record. A timeout procedure was performed. Following informed consent the patient was placed supine on the fluoroscopic table. The right neck and chest were prepped and draped in usual sterile fashion. All elements of maximal sterile barrier technique were followed including use of cap, mask, sterile gown, sterile gloves, a sterile full body drape and hand hygiene. The skin was prepared with 2% chlorhexidine for cutaneous antisepsis and sterile ultrasound preparation with sterile gel and probe cover was performed when applicable. Using ultrasound guidance the right internal jugular vein was localized. Ultrasound was utilized to assess the vascular structures for access. A standard puncture into the right internal jugular vein was performed with a Micro-Stick system. The wire was advanced into the IVC to confirm venous placement. Over the wire dilatation was performed and a temporary hemodialysis catheter was advanced over the wire. Catheter terminates in the proximal right atrium. Silk suture was utilized for catheter securement. The patient tolerated the procedure well. The patient was transferred back to the floor in stable condition. ULTRASOUND-GUIDED VASCULAR ACCESS: Ultrasound was used to identify the right internal jugular vein. The right internal jugular vein was confirmed to be patent. Real time imaging confirmed needle access into the right internal jugular vein. An image was saved for permanent recording in PACS. IMPRESSION: Successful placement of temporary hemodialysis catheter via the right internal jugular vein.
[2018-06-28 20:00] VITALS: BP 160/70
[2018-06-29] VITALS: BP 150/90
[2018-06-29 04:21] LABS: ABSOLUTE BASOPHIL COUNT 0 /CUMM (0.0-0.2); ABSOLUTE EOSINOPHIL COUNT 0 /CUMM (0.0-0.7); ABSOLUTE LYMPH COUNT 0.5 /CUMM (1.2-3.4); BASOPHIL % 0 % (0.0-2.0); EOSINOPHIL % 0 % (0-5)
[2018-06-29 05:24] LABS: GRANULOCYTE % 94.9 % (42.2-75.2); MEAN CORPUSCULAR HGB 29.9 PG (27.0-31.0); MEAN CORPUSCULAR HGB CONC 32.4 G/DL (33.0-37.0); MEAN CORPUSCULAR VOLUME 92.3 FL (81.0-99.0); MEAN PLATELET VOLUME 9.8 FL (7.4-10.4); PLATELET COUNT 184 /CUMM (130-400); RBC DISTRIBUTION WIDTH 15.4 % (11.5-14.5); RED BLOOD CELL CT 2.49 /CUMM (4.20-5.40)
[2018-06-29 07:04] LABS: WHITE BLOOD CELL COUNT 29.5 /CUMM (4.8-10.8)
--- NOTE | 2018-06-29 07:32 | PN- Resident CRCU ---
Subjective HPI/CRCU Issues: #Acute hypoxemic respiratory failure #Acute diastolic failure #Mitral stenosis #Morbid obesity with obstructive sleep apnea #CKD stage V #Anemia of chronic disease #Chronic ESBL colonization of bladder #Hypertension, hyperlipidemia, diabetes, chronic venous insufficiency with lower extremity edema 24 Hour Events: -No overnight events reported -Remain on BiPAP overnight -Afebrile remained in normal sinus rhythm with heart rate ranging from 60s-70s blood pressure towards the higher side ranging in the 170s-150s/60s-50s Intake 300 recorded output 3700 -Drop in H&H from 7.7/23 to 7.4/23, discussed with nephrology going to transfuse 1 unit with dialysis -Elevated white count 29.5 in setting of bands. No obvious source of infection. Denies sputum, abdominal pain, urinary symptoms. Does not report fever or chills. Lines do not look infected. Going to proceed with blood cultures, urine cultures, sputum culture. Repeat chest x-ray -Plan for dialysis today Update patient was on BiPAP initially when the dialysis started. Then patient was transferred to nasal cannula. Later blood transfusion was started and within 10 minutes patient became acutely short of breath, felt diaphoretic and flushed. Was immediately started back on BiPAP chest x-ray was ordered to rule out acute lung injury. Patient improved on BiPAP initially was having increased back of breathing but later settled down ABG was also ordered Objective Vital Signs & I&O Last 8 Hrs of Vitals and I&O: Laboratory Tests 06/29 06/28 06/28 0330 2105 1515 Chemistry Sodium (137 - 145 mmol/L) 144 Potassium (3.5 - 5.1 mmol/L) 3.5 Chloride (98 - 107 mmol/L) 109 H Carbon Dioxide (22 - 30 mmol/L) 22 Anion Gap (5 - 16) 13 BUN (7 - 17 mg/dL) 60 H Creatinine (0.5 - 1.0 mg/dL) 4.4 H Estimated GFR (>60 ml/min) 10 L Glucose (65 - 99 mg/dL) 114 H Calcium (8.4 - 10.2 mg/dL) 8.7 Phosphorus (2.5 - 4.5 mg/dL) 4.5 Magnesium (1.6 - 2.3 mg/dL) 2.2 Total Bilirubin (0.2 - 1.3 mg/dL) 0.6 AST (14 - 36 U/L) 15 ALT (9 - 52 U/L) 21 Troponin I (< 0.11 ng/ml) 0.04 0.05 Albumin (3.5 - 5.0 g/dL) 3.6 Hematology CBC w Diff MAN DIFF ORDERED WBC (4.8 - 10.8 /CUMM) 29.5 H RBC (4.20 - 5.40 /CUMM) 2.49 L Hgb (12.0 - 16.0 G/DL) 7.4 *L Hct (37 - 47 %) 23.0 L MCV (81.0 - 99.0 FL) 92.3 MCH (27.0 - 31.0 PG) 29.9 MCHC (33.0 - 37.0 G/DL) 32.4 L RDW (11.5 - 14.5 %) 15.4 H Plt Count (130 - 400 /CUMM) 184 MPV (7.4 - 10.4 FL) 9.8 Gran % (42.2 - 75.2 %) 94.9 H Lymphocytes % (20.5 - 51.1 %) 1.7 L Monocytes % (1.7 - 9.3 %) 3.4 Eosinophils % (0 - 5 %) 0 Basophils % (0.0 - 2.0 %) 0 Absolute Granulocytes (1.4 - 6.5 /CUMM) 28.0 H Segmented Neutrophils (42.2 - 75.2 %) 80 H Band Neutrophils (0.0 - 5.0 %) 13 H Absolute Lymphocytes (1.2 - 3.4 /CUMM) 0.5 L Lymphocytes (20.5 - 51.1 %) 3 L Monocytes (1.7 - 9.3 %) 3 Absolute Monocytes (0.10 - 0.60 /CUMM) 1.0 H Absolute Eosinophils (0.0 - 0.7 /CUMM) 0 Absolute Basophils (0.0 - 0.2 /CUMM) 0 Metamyelocytes (0.0 - 1.0 %) 1 Platelet Estimate (ADEQUATE) ADEQUATE Polychromasia 1+ Hypochromic-Microcytic 1+ Anisocytosis 1+ Schistocytes 1+ 08/20 1350 Serology Hep Bs Antigen (NONREACTIVE) NONREACTIVE Hep Bs Antibody (NONREACTIVE) NONREACTIVE Vital Signs Date Time Temp Pulse Resp B/P B/P Pulse O2 O2 Flow FiO2 Mean Ox Delivery Rate 06/29 1018 76 96 06/29 0946 95 06/29 0613 69 96 06/29 0400 95 BIPAP 30% 06/29 0230 73 93 06/29 0104 75 93 06/29 0000 95 BIPAP 30% 06/29 0000 97.9 76 20 150/90 95 BIPAP 30% 06/28 2119 94 BIPAP 30% 06/28 2118 82 94 06/28 2113 79 179/67 06/28 2000 95 Nasal 4.0L Cannula 06/28 2000 98.3 81 25 160/70 95 Nasal 4.0L Cannula 06/28 1840 175/66 06/28 1707 74 160/70 06/28 1630 78 94 06/28 1600 96 BIPAP 30% 06/28 1600 97.2 66 23 170/80 96 BIPAP 30% 06/28 1457 BIPAP 30% 06/28 1400 95 BIPAP 30% 06/28 1400 97.1 68 26 178/84 95 BIPAP 30% 06/28 1342 68 95 06/28 1259 66 17 156/64 97 BIPAP 06/28 1216 65 95 06/28 1141 68 21 184/78 96 BIPAP Intake & Output 06/29 1600 06/29 0800 06/29 0000 Intake Total 100 200 Output Total 600 2700 Balance -500 -2500 Intake, Oral 100 200 Output, 2500 Dialysate Output, Urine 600 200 Patient 205 lb 205 lb Weight Weight Bed scale Bed scale Measurement Method Exam General Appearance: on Bipap Head: atraumatic Respiratory: decreased breath sounds, accessory muscle use, no wheezing Cardiovascular: regular rate/rhythm Gastrointestinal: normal bowel sounds, soft Extremities: b/l lower extremeity edema +1 Current Medications: Current Medications Sig/Duong Start time Last Medication Dose Route Stop Time Status Admin Acetaminophen 650 MG Q6P PRN 06/28 1245 AC PO Acetaminophen 1,000 MG Q6P PRN 06/28 1245 AC IV Albuterol Sulfate 3 ML Q4P PRN 06/28 1515 AC INH Amlodipine Besylate 10 MG DAILY 06/29 900 AC PO Aspirin 81 MG DAILY 06/29 900 AC PO Atorvastatin Calcium 40 MG DAILY 06/29 900 AC PO Doxazosin Mesylate 4 MG DAILY 06/29 900 AC PO Epoetin Ld 6,000 UNIT MoWeFr 06/30 0933 DC IV Epoetin Ld 6,000 UNIT ONCE ONE 06/29 1100 DC IV 06/29 1101 Epoetin Ld 6,000 UNITS MoWeFr 06/28 1445 DC 06/28 IV 1707 Fish Oil 1,050 MG DAILY 06/28 1228 AC 06/28 PO 1707 Heparin Sodium 5,000 UNIT Q8 06/28 1400 AC 06/29 (Porcine) SC 0549 Heparin Sodium 0 .STK-MED ONE 06/28 1232 DC (Porcine) IV Hydralazine HCl 100 MG TID 06/28 1400 AC 06/28 PO 2113 Isosorbide 90 MG DAILY 06/28 1226 AC 06/28 Mononitrate PO 1707 Labetalol HCl 300 MG BID 06/28 2100 AC 06/28 PO 2113 Lidocaine 0 .STK-MED ONE 06/28 1232 DC .ROUTE Multivitamins 1 TAB DAILY 06/29 0900 AC Therapeutic PO Nitroglycerin 0.4 MG ONCE ONE 06/28 1730 DC 06/28 SL 06/28 1731 1645 Nitroglycerin 0 .STK-MED ONE 06/28 1633 DC SL Omeprazole 40 MG DAILY AC 06/28 1436 AC 06/29 PO 0550 Potassium Chloride 20 MEQ ONCE ONE 06/29 0600 DC 06/29 PO 06/29 0601 0641 Sevelamer Carbonate 800 MG WM 06/28 1700 AC 06/28 PO 1840 Trimethobenzamide HCl 0 .STK-MED ONE 06/29 0937 DC IM Trimethobenzamide HCl 200 MG ONCE ONE 06/29 0930 DC 06/29 IM 06/29 0931 0937 Impression/Plan Impression/Problem List Impression: The patient is 77-year-old female with past medical history of hypertension, hyperlipidemia, type 2 diabetes mellitus, chronic venous insufficiency, ESRD, anemia of chronic disease, congestive heart failure with preserved ejection fraction severe diastolic dysfunction, morbid obesity, obstructive sleep apnea, chronic back pain, lumbosacral disc degeneration with chronic L1 fracture, recurrent falls. She was brought in by ambulance with chief complaint of shortness of breath. She was initially admitted to telemetry floor later transferred to ICU in setting of acute need of dialysis. She is currently being treated and evaluated for following conditions #Acute hypoxemic respiratory failure in setting of acute exacerbation of HFpEF ( acute diastolic heart failure), compounded by worsening renal failure Vol overload and mitral stenosis Chest x-ray consistent with cardiomegaly and pulmonary edema consistent with congestive heart failure. ProBNP 82122. Recent echocardiogram on normal left ventricular size, EF of 60-65%, moderately increased left ventricular wall thickness month, diastolic heart failure and moderate pulmonary hypertension. Patient was initially discharged on June 10 on 40 mg, however recently the Lasix dosage has been increased to 40 mg twice a day, received additional 60 mg IV Lasix while at the emergency department along with topical nitrates. Which might have put patient in PATO on CKD -Continue BiPAP -TRC and maintain oxygen saturation greater than 92% -Continue dialysis -Hold off Lasix -Continue to monitor intake/output -Daily weights -Monitor electrolytes and replete accordingly -Continue statin and aspirin # Hypertension She came in with pressure of 170/72, she has tendency to have high blood pressure and is on multiple medications to control high blood pressure including isosorbide mononitrate 90 mg once daily, labetalol 300 mg twice a day, Lasix 40 mg twice a day, hydralazine 100 mg 3 times a day, doxazosin 4 mg tablet once daily and amlodipine 10 mg once daily. 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 -Continue to monitor blood pressure -All home medication have been resumed #Probable transfusion reaction Patient became acutely short of breath after starting the transfusion within 10 minutes. She was on nasal cannula at that point. He started desaturating up to 80 patient was immediately started on BiPAP and her oxygen saturation came right back up in greater than 95%. Patient was afebrile -Blood transfusion was stopped -Blood sent to test for transfusion reaction -Chest x-ray was ordered immediately to rule out transfusion related acute lung injury however came out to be negative. -ABG pH 7.39/PCO2 42/PO2 75 bicarb 25 -Since that episode patient has improved on BiPAP or work of breathing is significantly decreased. And was later transitioned to nasal cannula #PATO on CKD - 4 likely secondary to hypertension and diabetes Patient underwent temporary catheter placement on the day of admission and will be maintained on dialysis -Continue dialysis as per nephrology #Anemia of chronic disease in setting of CKD -Guaiac all stools. -Epogen 6000 units 3 times a week -ct to monitor #Leukocytosis and bandemia In setting of temporary dialysis catheter insertion -Continue to monitor -Monitor off antibiotics discussed with Dr. Vang # HLD -ct Crestor #Chronic lower extremtiy edema Chronic edema is secondary to a combination of chronic venous insufficiency along with diastolic dysfunction, she says that her edema has been better after recent increase in Lasix dosage. -Do not suspect any DVT as this is her baseline edema and there is no acute change. -Continue diuresis per cardio. #Obstructive sleep apnea -Maintain on BiPAP FC/heparin dvt px PP Problem List: 1. Hypertensive urgency 2. CRI (chronic renal insufficiency) Pain Ratin Tomorrow's Labs & Rationales: CBC ICUBUNDLE Plan DVT/Prophylaxis: mechanical, pharmacological
[2018-06-29 08:00] VITALS: BP 130/62
--- NOTE | 2018-06-29 08:36 | PN- Nephrology ---
Assessment/Plan Nephrology Assessment: ESRD, respiratory status improved after 2 liters UF. Will need permanent dialysis at this point. Suggestion: Dialysis today, UF another 2 liters with transfusion one unit of PRBCs. Would get Dr. Paredes to see patient about AVF as he has seen her in past. Dialysis again tomorrow. Subjective Subjective: On CPAP but denies SOB. Had some chest pressure after dialysis yesterday, now resoloved. Objective Vital Signs and I&Os Vital Signs Date Time Temp Pulse Resp B/P B/P Pulse O2 O2 Flow FiO2 Mean Ox Delivery Rate 06/29 0613 69 96 06/29 0400 95 BIPAP 30% 06/29 0230 73 93 06/29 0104 75 93 06/29 0000 95 BIPAP 30% 06/29 0000 97.9 76 20 150/90 95 BIPAP 30% 06/28 2119 94 BIPAP 30% 06/28 2118 82 94 06/28 2113 79 179/67 06/28 2000 95 Nasal 4.0L Cannula 06/28 2000 98.3 81 25 160/70 95 Nasal 4.0L Cannula 06/28 1840 175/66 06/28 1707 74 160/70 06/28 1630 78 94 06/28 1600 96 BIPAP 30% 06/28 1600 97.2 66 23 170/80 96 BIPAP 30% 06/28 1457 BIPAP 30% 06/28 1400 95 BIPAP 30% 06/28 1400 97.1 68 26 178/84 95 BIPAP 30% 06/28 1342 68 95 06/28 1259 66 17 156/64 97 BIPAP 06/28 1216 65 95 06/28 1141 68 21 184/78 96 BIPAP 06/28 1118 186/82 06/28 1117 65 97 / 1117 64 25 186/82 95 BIPAP 06/28 1100 95 Nasal 4.0L Cannula 06/28 1024 97.0 70 18 94 Nasal 3.0L Cannula 06/28 0955 65 20 170/72 95 Nasal 4.0L Cannula 06/28 0925 94 Nasal 4.0L Cannula 06/28 0904 96 Nasal 4.0L Cannula 06/28 0854 98.6 83 22 174/77 96 Nasal 4.0L Cannula Intake & Output 06/29 1600 06/29 0400 06/28 1600 06/28 0400 08/19 1600 06/27 0400 Intake Total 100 200 0 Output Total 600 2700 800 Balance -500 -2500 -800 Intake, Oral 100 200 0 Output, 2500 Dialysate Output, Urine 600 200 800 Patient 205 lb 205 lb 215 lb Weight Weight Bed scale Bed scale Bed scale Measurement Method Physical Exam: NAD VS as above Lungs: some scattered rhonchi CV: no rub Abd: nontender Exts : trace edema Neuro: A&O, no asterixis. Current Medications: Current Medications Sig/Duong Start time Last Medication Dose Route Stop Time Status Admin Acetaminophen 650 MG Q6P PRN 06/28 1245 AC PO Acetaminophen 1,000 MG Q6P PRN 06/28 1245 AC IV Albuterol Sulfate 3 ML Q4P PRN 06/28 1515 AC INH Albuterol Sulfate 3 ML ONCE ONE 06/28 1130 DC 06/28 INH 06/28 1131 1100 Albuterol Sulfate 3 ML ONCE ONE 06/28 0930 DC 06/28 INH 06/28 0931 0920 Amlodipine Besylate 10 MG DAILY 06/29 0900 AC PO Amlodipine Besylate 0 .STK-MED ONE 06/28 1113 DC PO Amlodipine Besylate 10 MG ONCE ONE 06/28 1100 DC 06/28 PO 06/28 1101 1118 Aspirin 81 MG DAILY 06/29 0900 AC PO Atorvastatin Calcium 40 MG DAILY 06/29 0900 AC PO Doxazosin Mesylate 4 MG DAILY 06/29 0900 AC PO Epoetin Ld 6,000 UNITS MoWeFr 06/28 1445 AC 06/28 IV 1707 Fish Oil 1,050 MG DAILY 06/28 1228 AC 06/28 PO 1707 Furosemide 0 .STK-MED ONE 06/28 0949 DC IV Furosemide 60 MG ONCE ONE 06/28 0945 DC 06/28 IV PUSH 06/28 0946 0955 Heparin Sodium 5,000 UNIT Q8 06/28 1400 AC 06/29 (Porcine) SC 0549 Heparin Sodium 0 .STK-MED ONE 06/28 1232 DC (Porcine) IV Hydralazine HCl 100 MG TID 06/28 1400 AC 06/28 PO 2113 Hydralazine HCl 0 .STK-MED ONE 06/28 1113 DC .ROUTE Hydralazine HCl 20 MG ONCE ONE 06/28 1100 DC 06/28 IV 06/28 1101 1118 Ipratropium [place] 2.5 ML ONCE ONE 06/28 0845 DC 06/28 INH 06/28 0846 0920 Isosorbide 90 MG DAILY 06/28 1226 AC 06/28 Mononitrate PO 1707 Labetalol HCl 300 MG BID 06/28 2100 AC 06/28 PO 2113 Labetalol HCl 0 .STK-MED ONE 06/28 1114 DC IV Labetalol HCl 10 MG ONCE ONE 06/28 1100 DC 06/28 IV 06/28 1101 1146 Lidocaine 0 .STK-MED ONE 06/28 1232 DC .ROUTE Methylprednisolone 125 MG ONCE ONE 06/28 0845 DC 06/28 IV 06/28 0846 0854 Methylprednisolone 0 .STK-MED ONE 06/28 0839 DC .ROUTE Multivitamins 1 TAB DAILY 06/29 0900 AC Therapeutic PO Nitroglycerin 0.4 MG ONCE ONE 06/28 1730 DC 06/28 SL 06/28 1731 1645 Nitroglycerin 0 .STK-MED ONE 06/28 1633 DC SL Nitroglycerin 0 .STK-MED ONE 06/28 1026 DC TOP Nitroglycerin 1 GM ONCE ONE 06/28 1000 DC 06/28 TOP 06/28 1001 1028 Omeprazole 40 MG DAILY AC 06/28 1436 AC 06/29 PO 0550 Potassium Chloride 20 MEQ ONCE ONE 06/29 0600 DC 06/29 PO 06/29 0601 0641 Sevelamer Carbonate 800 MG WM 06/28 1700 AC 06/28 PO 1840 Results Pertinent Lab Results: Laboratory Tests 06/29 06/28 06/28 0330 2105 1515 Chemistry Sodium (137 - 145 mmol/L) 144 Potassium (3.5 - 5.1 mmol/L) 3.5 Chloride (98 - 107 mmol/L) 109 H Carbon Dioxide (22 - 30 mmol/L) 22 Anion Gap (5 - 16) 13 BUN (7 - 17 mg/dL) 60 H Creatinine (0.5 - 1.0 mg/dL) 4.4 H Estimated GFR (>60 ml/min) 10 L Glucose (65 - 99 mg/dL) 114 H Calcium (8.4 - 10.2 mg/dL) 8.7 Phosphorus (2.5 - 4.5 mg/dL) 4.5 Magnesium (1.6 - 2.3 mg/dL) 2.2 Total Bilirubin (0.2 - 1.3 mg/dL) 0.6 AST (14 - 36 U/L) 15 ALT (9 - 52 U/L) 21 Troponin I (< 0.11 ng/ml) 0.04 0.05 Albumin (3.5 - 5.0 g/dL) 3.6 Hematology CBC w Diff MAN DIFF ORDERED WBC (4.8 - 10.8 /CUMM) 29.5 H RBC (4.20 - 5.40 /CUMM) 2.49 L Hgb (12.0 - 16.0 G/DL) 7.4 *L Hct (37 - 47 %) 23.0 L MCV (81.0 - 99.0 FL) 92.3 MCH (27.0 - 31.0 PG) 29.9 MCHC (33.0 - 37.0 G/DL) 32.4 L RDW (11.5 - 14.5 %) 15.4 H Plt Count (130 - 400 /CUMM) 184 MPV (7.4 - 10.4 FL) 9.8 Gran % (42.2 - 75.2 %) 94.9 H Lymphocytes % (20.5 - 51.1 %) 1.7 L Monocytes % (1.7 - 9.3 %) 3.4 Eosinophils % (0 - 5 %) 0 Basophils % (0.0 - 2.0 %) 0 Absolute Granulocytes (1.4 - 6.5 /CUMM) 28.0 H Segmented Neutrophils (42.2 - 75.2 %) 80 H Band Neutrophils (0.0 - 5.0 %) 13 H Absolute Lymphocytes (1.2 - 3.4 /CUMM) 0.5 L Lymphocytes (20.5 - 51.1 %) 3 L Monocytes (1.7 - 9.3 %) 3 Absolute Monocytes (0.10 - 0.60 /CUMM) 1.0 H Absolute Eosinophils (0.0 - 0.7 /CUMM) 0 Absolute Basophils (0.0 - 0.2 /CUMM) 0 Metamyelocytes (0.0 - 1.0 %) 1 Platelet Estimate (ADEQUATE) ADEQUATE Polychromasia 1+ Hypochromic-Microcytic 1+ Anisocytosis 1+ Schistocytes 1+ 06/28 06/28 1350 0910 Chemistry Sodium (137 - 145 mmol/L) 145 Potassium (3.5 - 5.1 mmol/L) 3.4 L Chloride (98 - 107 mmol/L) 112 H Carbon Dioxide (22 - 30 mmol/L) 20 L Anion Gap (5 - 16) 13 BUN (7 - 17 mg/dL) 87 H Creatinine (0.5 - 1.0 mg/dL) 5.9 *H Estimated GFR (>60 ml/min) 7 L BUN/Creatinine Ratio (7 - 25 %) 15.3 Glucose (65 - 99 mg/dL) 105 H Calcium (8.4 - 10.2 mg/dL) 8.6 Phosphorus (2.5 - 4.5 mg/dL) 5.8 H Magnesium (1.6 - 2.3 mg/dL) 2.5 H Total Bilirubin (0.2 - 1.3 mg/dL) 0.4 Direct Bilirubin (< 0.4 mg/dL) 0.4 AST (14 - 36 U/L) 13 L ALT (9 - 52 U/L) 19 Alkaline Phosphatase (<127 U/L) 68 Troponin I (< 0.11 ng/ml) 0.05 Gls-S-Rhcrjzusaht Pept (<125 pg/mL) 30778 H Total Protein (6.3 - 8.2 g/dL) 6.3 Albumin (3.5 - 5.0 g/dL) 3.6 TSH &T3 &Free T4 Intrp (0.270 - 4.20 uIU/mL) 3.190 Coagulation PT (9.4 - 12.5 SEC) 13.8 H INR (0.90 - 1.19) 1.26 H APTT (25 - 37 SEC) 31 Hematology CBC w Diff NO MAN DIFF REQ WBC (4.8 - 10.8 /CUMM) 7.8 RBC (4.20 - 5.40 /CUMM) 2.53 L Hgb (12.0 - 16.0 G/DL) 7.7 L Hct (37 - 47 %) 23.3 L MCV (81.0 - 99.0 FL) 91.9 MCH (27.0 - 31.0 PG) 30.3 MCHC (33.0 - 37.0 G/DL) 33.0 RDW (11.5 - 14.5 %) 15.1 H Plt Count (130 - 400 /CUMM) 201 MPV (7.4 - 10.4 FL) 10.1 Gran % (42.2 - 75.2 %) 77.7 H Lymphocytes % (20.5 - 51.1 %) 9.0 L Monocytes % (1.7 - 9.3 %) 6.8 Eosinophils % (0 - 5 %) 5.6 H Basophils % (0.0 - 2.0 %) 0.9 Absolute Granulocytes (1.4 - 6.5 /CUMM) 6.0 Absolute Lymphocytes (1.2 - 3.4 /CUMM) 0.7 L Absolute Monocytes (0.10 - 0.60 /CUMM) 0.5 Absolute Eosinophils (0.0 - 0.7 /CUMM) 0.4 Absolute Basophils (0.0 - 0.2 /CUMM) 0.1 Serology Hep Bs Antigen (NONREACTIVE) NONREACTIVE Hep Bs Antibody (NONREACTIVE) NONREACTIVE
--- NOTE | 2018-06-29 08:49 | Cons- Cardiology ---
General Information and HPI Consulting Request Date of Consult: 06/29/18 Requested By: Taj DUNN,Wilian Hampton Reason for Consult: Shortness of breath Source of Information: patient, old records Exam Limitations: no limitations History of Present Illness: The patient is a 77-year-old female with history of hypertension, chronic kidney disease, anemia, heart failure with preserved ejection fraction, mild aortic stenosis, sleep apnea on CPAP, chronic venous insufficiency and hyperlipidemia who now presents with increasing shortness of breath. The patient was recently admitted to and discharged June 10 after being treated for acute hypoxic respiratory failure secondary to congestive heart failure and hypertensive urgency. Patient has been doing well but on the morning prior to presentation she developed severe shortness of breath with an O2 saturation of 80% on 2 L while at home. Her daughter increased her oxygen to 3 L and saturation improved to 89%. Despite nebulizer treatment her shortness of breath persisted and therefore she presented to emergency room for evaluation. The patient was found to be hypoxic and placed on BiPAP. Catheter was placed in dialysis plan for today. Patient states that her shortness of breath has improved slightly. She continues to to deny chest discomfort. Allergies/Medications Allergies: Coded Allergies: NO KNOWN ALLERGIES (UNKNOWN 04/24/17) Home Med List: Amlodipine Besylate 10 MG TABLET 1 TAB PO DAILY HEART (Reported) Aspirin (Children's Aspirin) 81 MG TAB.CHEW 1 TAB PO DAILY HEART HEALTH ( Reported) Cholecalciferol (Vitamin D3) 1,000 UNIT TABLET 1 TAB PO DAILY VITAMIN SUPPORT (Reported) Doxazosin Mesylate (Cardura) 4 MG TABLET 1 TAB PO DAILY HEART (Reported) Furosemide 40 MG TABLET 1 TAB PO DAILY PRN LOWER EXTREMITY SWELLING PRN .. Hydralazine HCl 100 MG TABLET 1 TAB PO TID HIGH BLOOD PRESSURE Isosorbide Mononitrate (Isosorbide Mononitrate ER) 30 MG TAB.ER.24H 90 MG PO DAILY HTN . Labetalol HCl 100 MG TABLET 300 MG PO BID HYPERTENSION . Multivitamin (Multiple Vitamins) 1 EACH TABLET 1 TAB PO DAILY VITAMIN SUPPORT (Reported) Mcintosh-3 Fatty Acids/Fish Oil (Fish Oil 1,000 MG Capsule) 340 MG-1,000 MG CAPSULE 1 CAP PO DAILY SUPPLEMENT (Reported) Rosuvastatin Calcium (Crestor) 40 MG TABLET 1 TAB PO DAILY CHOLESTEROL ( Reported) Sevelamer Carbonate (Renvela) 800 MG TABLET 1 TAB PO WM Kidney failure Tramadol HCl 50 MG TABLET 1 TAB PO BIDP PRN PAIN (Reported) Vitamin E 200 UNIT CAPSULE 1 CAP PO DAILY SUPPLEMENT (Reported) Current Medications: Current Medications Sig/Duong Start time Last Medication Dose Route Stop Time Status Admin Acetaminophen 650 MG Q6P PRN 06/28 1245 AC PO Acetaminophen 1,000 MG Q6P PRN 06/28 1245 AC IV Albuterol Sulfate 3 ML Q4P PRN 06/28 1515 AC INH Albuterol Sulfate 3 ML ONCE ONE 06/28 1130 DC 06/28 INH 06/28 1131 1100 Albuterol Sulfate 3 ML ONCE ONE 06/28 0930 DC 06/28 INH 06/28 0931 0920 Amlodipine Besylate 10 MG DAILY 06/29 0900 AC PO Amlodipine Besylate 0 .STK-MED ONE 06/28 1113 DC PO Amlodipine Besylate 10 MG ONCE ONE 06/28 1100 DC 06/28 PO 06/28 1101 1118 Aspirin 81 MG DAILY 06/29 0900 AC PO Atorvastatin Calcium 40 MG DAILY 06/29 0900 AC PO Doxazosin Mesylate 4 MG DAILY 06/29 0900 AC PO Epoetin Ld 6,000 UNITS MoWeFr 06/28 1445 AC 06/28 IV 1707 Fish Oil 1,050 MG DAILY 06/28 1228 AC 06/28 PO 1707 Furosemide 0 .STK-MED ONE 06/28 0949 DC IV Furosemide 60 MG ONCE ONE 06/28 0945 DC 06/28 IV PUSH 06/28 0946 0955 Heparin Sodium 5,000 UNIT Q8 06/28 1400 AC 06/29 (Porcine) SC 0549 Heparin Sodium 0 .STK-MED ONE 06/28 1232 DC (Porcine) IV Hydralazine HCl 100 MG TID 06/28 1400 AC 06/28 PO 2113 Hydralazine HCl 0 .STK-MED ONE 06/28 1113 DC .ROUTE Hydralazine HCl 20 MG ONCE ONE 06/28 1100 DC 06/28 IV 06/28 1101 1118 Ipratropium [place] 2.5 ML ONCE ONE 06/28 0845 DC 06/28 INH 06/28 0846 0920 Isosorbide 90 MG DAILY 06/28 1226 AC 06/28 Mononitrate PO 1707 Labetalol HCl 300 MG BID 06/28 2100 AC 06/28 PO 2113 Labetalol HCl 0 .STK-MED ONE 06/28 1114 DC IV Labetalol HCl 10 MG ONCE ONE 06/28 1100 DC 06/28 IV 06/28 1101 1146 Lidocaine 0 .STK-MED ONE 06/28 1232 DC .ROUTE Methylprednisolone 125 MG ONCE ONE 06/28 0845 DC 06/28 IV 06/28 0846 0854 Methylprednisolone 0 .STK-MED ONE 06/28 0839 DC .ROUTE Multivitamins 1 TAB DAILY 06/29 0900 AC Therapeutic PO Nitroglycerin 0.4 MG ONCE ONE 06/28 1730 DC 06/28 SL 06/28 1731 1645 Nitroglycerin 0 .STK-MED ONE 06/28 1633 DC SL Nitroglycerin 0 .STK-MED ONE 06/28 1026 DC TOP Nitroglycerin 1 GM ONCE ONE 06/28 1000 DC 06/28 TOP 06/28 1001 1028 Omeprazole 40 MG DAILY AC 06/28 1436 AC 06/29 PO 0550 Potassium Chloride 20 MEQ ONCE ONE 06/29 0600 DC 06/29 PO 06/29 0601 0641 Sevelamer Carbonate 800 MG WM 06/28 1700 AC 06/28 PO 1840 Review of Systems Review of Systems: Eyes no blurred or double vision Ears no deafness or ringing Nose and throat no recurrent sinusitis Lungs per history of present illness Heart per history of present illness Abdomen no nausea vomiting Musculoskeletal occasional muscle and joint pains Psych no anxiety or depression Neuro without recurrent headache or seizures Endocrine no heat or cold intolerance Past History Travel History Traveled to [place] past 21 day No Medical History Blood Transfusion Hx: No Neurological: NONE EENT: NONE Cardiovascular: diastolic CHF, hypertension, hyperlipidemia, chronic venous insuffcny Respiratory: NONE Gastrointestinal: C.DIFF Hepatic: NONE Renal: chronic kidney disease Musculoskeletal: fracture, LUMBAR FX Psychiatric: NONE Endocrine: NONE Blood Disorders: anemia Cancer(s): NONE 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 , Age 44; Cause: HTN (hypertension). FATHER, , Age 68; Cause: ASHD (arteriosclerotic heart disease). Psychosocial History Where Do You Live? Home Who Do You Live With? self Services at Home: None Primary Language: [place] Smoking Status: Never Smoked ETOH Use: denies use Illicit Drug Use: denies illicit drug use Living Will? 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 no Functional Ability ADLs Independent: dressing, eating, toileting, bathing. 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 Exam & Diagnostic Data Vital Signs and I&O Vital Signs Date Time Temp Pulse Resp B/P B/P Pulse O2 O2 Flow FiO2 Mean Ox Delivery Rate 06/29 0613 69 96 06/29 0400 95 BIPAP 30% 06/29 0230 73 93 06/29 0104 75 93 06/29 0000 95 BIPAP 30% 06/29 0000 97.9 76 20 150/90 95 BIPAP 30% 06/28 2119 94 BIPAP 30% 06/28 2118 82 94 06/28 2113 79 179/67 06/28 2000 95 Nasal 4.0L Cannula 06/28 2000 98.3 81 25 160/70 95 Nasal 4.0L Cannula 06/28 1840 175/66 06/28 1707 74 160/70 06/28 1630 78 94 06/28 1600 96 BIPAP 30% 06/28 1600 97.2 66 23 170/80 96 BIPAP 30% 06/28 1457 BIPAP 30% 06/28 1400 95 BIPAP 30% 06/28 1400 97.1 68 26 178/84 95 BIPAP 30% 06/28 1342 68 95 06/28 1259 66 17 156/64 97 BIPAP 06/28 1216 65 95 06/28 1141 68 21 184/78 96 BIPAP 06/28 1118 186/82 06/28 1117 65 97 06/28 1117 64 25 186/82 95 BIPAP 06/28 1100 95 Nasal 4.0L Cannula 06/28 1024 97.0 70 18 94 Nasal 3.0L Cannula 06/28 0955 65 20 170/72 95 Nasal 4.0L Cannula 06/28 0925 94 Nasal 4.0L Cannula 06/28 0904 96 Nasal 4.0L Cannula 06/28 0854 98.6 83 22 174/77 96 Nasal 4.0L Cannula Intake & Output 06/29 1600 06/29 0800 06/29 0000 06/28 1600 06/28 0800 06/28 0000 Intake Total 100 200 0 Output Total 600 2700 800 Balance -500 -2500 -800 Intake, Oral 100 200 0 Output, 2500 Dialysate Output, Urine 600 200 800 Patient 205 lb 205 lb 215 lb Weight Weight Bed scale Bed scale Bed scale Measurement Method Physical Exam: Patient is a well-developed well-nourished female appearing in no acute distress HEENT is unremarkable Neck is supple there is no JVD Lungs few rales bilaterally Heart regular rhythm S1 and S2 are normal no murmurs gallops or rubs Abdomen bowel sounds positive Extremities without edema Labs/Ray Results: Laboratory Tests 06/29 06/28 06/28 0330 2105 1515 Chemistry Sodium (137 - 145 mmol/L) 144 Potassium (3.5 - 5.1 mmol/L) 3.5 Chloride (98 - 107 mmol/L) 109 H Carbon Dioxide (22 - 30 mmol/L) 22 Anion Gap (5 - 16) 13 BUN (7 - 17 mg/dL) 60 H Creatinine (0.5 - 1.0 mg/dL) 4.4 H Estimated GFR (>60 ml/min) 10 L Glucose (65 - 99 mg/dL) 114 H Calcium (8.4 - 10.2 mg/dL) 8.7 Phosphorus (2.5 - 4.5 mg/dL) 4.5 Magnesium (1.6 - 2.3 mg/dL) 2.2 Total Bilirubin (0.2 - 1.3 mg/dL) 0.6 AST (14 - 36 U/L) 15 ALT (9 - 52 U/L) 21 Troponin I (< 0.11 ng/ml) 0.04 0.05 Albumin (3.5 - 5.0 g/dL) 3.6 Hematology CBC w Diff MAN DIFF ORDERED WBC (4.8 - 10.8 /CUMM) 29.5 H RBC (4.20 - 5.40 /CUMM) 2.49 L Hgb (12.0 - 16.0 G/DL) 7.4 *L Hct (37 - 47 %) 23.0 L MCV (81.0 - 99.0 FL) 92.3 MCH (27.0 - 31.0 PG) 29.9 MCHC (33.0 - 37.0 G/DL) 32.4 L RDW (11.5 - 14.5 %) 15.4 H Plt Count (130 - 400 /CUMM) 184 MPV (7.4 - 10.4 FL) 9.8 Gran % (42.2 - 75.2 %) 94.9 H Lymphocytes % (20.5 - 51.1 %) 1.7 L Monocytes % (1.7 - 9.3 %) 3.4 Eosinophils % (0 - 5 %) 0 Basophils % (0.0 - 2.0 %) 0 Absolute Granulocytes (1.4 - 6.5 /CUMM) 28.0 H Segmented Neutrophils (42.2 - 75.2 %) 80 H Band Neutrophils (0.0 - 5.0 %) 13 H Absolute Lymphocytes (1.2 - 3.4 /CUMM) 0.5 L Lymphocytes (20.5 - 51.1 %) 3 L Monocytes (1.7 - 9.3 %) 3 Absolute Monocytes (0.10 - 0.60 /CUMM) 1.0 H Absolute Eosinophils (0.0 - 0.7 /CUMM) 0 Absolute Basophils (0.0 - 0.2 /CUMM) 0 Metamyelocytes (0.0 - 1.0 %) 1 Platelet Estimate (ADEQUATE) ADEQUATE Polychromasia 1+ Hypochromic-Microcytic 1+ Anisocytosis 1+ Schistocytes 1+ 06/28 06/28 1350 0910 Chemistry Sodium (137 - 145 mmol/L) 145 Potassium (3.5 - 5.1 mmol/L) 3.4 L Chloride (98 - 107 mmol/L) 112 H Carbon Dioxide (22 - 30 mmol/L) 20 L Anion Gap (5 - 16) 13 BUN (7 - 17 mg/dL) 87 H Creatinine (0.5 - 1.0 mg/dL) 5.9 *H Estimated GFR (>60 ml/min) 7 L BUN/Creatinine Ratio (7 - 25 %) 15.3 Glucose (65 - 99 mg/dL) 105 H Calcium (8.4 - 10.2 mg/dL) 8.6 Phosphorus (2.5 - 4.5 mg/dL) 5.8 H Magnesium (1.6 - 2.3 mg/dL) 2.5 H Total Bilirubin (0.2 - 1.3 mg/dL) 0.4 Direct Bilirubin (< 0.4 mg/dL) 0.4 AST (14 - 36 U/L) 13 L ALT (9 - 52 U/L) 19 Alkaline Phosphatase (<127 U/L) 68 Troponin I (< 0.11 ng/ml) 0.05 Izf-Q-Ekaxiqxyrte Pept (<125 pg/mL) 88704 H Total Protein (6.3 - 8.2 g/dL) 6.3 Albumin (3.5 - 5.0 g/dL) 3.6 TSH &T3 &Free T4 Intrp (0.270 - 4.20 uIU/mL) 3.190 Coagulation PT (9.4 - 12.5 SEC) 13.8 H INR (0.90 - 1.19) 1.26 H APTT (25 - 37 SEC) 31 Hematology CBC w Diff NO MAN DIFF REQ WBC (4.8 - 10.8 /CUMM) 7.8 RBC (4.20 - 5.40 /CUMM) 2.53 L Hgb (12.0 - 16.0 G/DL) 7.7 L Hct (37 - 47 %) 23.3 L MCV (81.0 - 99.0 FL) 91.9 MCH (27.0 - 31.0 PG) 30.3 MCHC (33.0 - 37.0 G/DL) 33.0 RDW (11.5 - 14.5 %) 15.1 H Plt Count (130 - 400 /CUMM) 201 MPV (7.4 - 10.4 FL) 10.1 Gran % (42.2 - 75.2 %) 77.7 H Lymphocytes % (20.5 - 51.1 %) 9.0 L Monocytes % (1.7 - 9.3 %) 6.8 Eosinophils % (0 - 5 %) 5.6 H Basophils % (0.0 - 2.0 %) 0.9 Absolute Granulocytes (1.4 - 6.5 /CUMM) 6.0 Absolute Lymphocytes (1.2 - 3.4 /CUMM) 0.7 L Absolute Monocytes (0.10 - 0.60 /CUMM) 0.5 Absolute Eosinophils (0.0 - 0.7 /CUMM) 0.4 Absolute Basophils (0.0 - 0.2 /CUMM) 0.1 Serology Hep Bs Antigen (NONREACTIVE) NONREACTIVE Hep Bs Antibody (NONREACTIVE) NONREACTIVE Diagnostic Data EKG Results Sinus rhythm LVH CXR Results IMPRESSION: There is cardiomegaly and pulmonary edema consistent with congestive heart failure. The possibility of superimposed pneumonia cannot be definitively excluded on the basis of this examination. Other Results Echocardiogram May 24, 2018 CONCLUSIONS Normal left ventricular systolic function with moderate concentric hypertrophy. Moderate left atrial enlargement. At least type 2 Diastolic left ventricular dysfunction with suggestion of elevated left ventricular end diastolic pressure by doppler.Moderate Pulmonary hypertension.Mild Mitral stenosis. Uriel Odell M.D. Assessment/Plan Assessment/Plan 1. Acute on chronic diastolic heart failure with hypoxemic respiratory failure requiring BiPAP EF 65% 2. Chronic kidney disease stage V now requiring dialysis 3. Hypertension 4. Morbid obesity 5. Anemia of chronic disease 6. Chronic venous insufficiency Recommendations 1. Plan is for dialysis today. 2. Continue her current antihypertensive regimen. 3. Hold Lasix 4. Wean off BiPAP as tolerated 5. Continue to monitor on telemetry Thank you for allowing [facility] to participate in the care of your patient. Consult Acknowledgment - Thank you for your consult request.
--- NOTE | 2018-06-29 09:06 | RADIOLOGY REPORT ---
EXAMINATION: XR PORTABLE CHEST CLINICAL INFORMATION: Elevated white count. COMPARISON: 06/28/2018 TECHNIQUE: Portable frontal view of the chest was obtained. FINDINGS: Rotated and lordotic positioning. Tubing projects over the chest. Monitoring leads project over the chest. Central venous catheter projected in the expected region of the SVC, tip in the distal SVC. Cardiomediastinal silhouette is enlarged, similar to previous. There is central vascular congestion. Interstitial prominence present in bilateral lungs. Improved aeration of bilateral lower lobes with interval improvement in the opacity seen in this region. Small bilateral pleural effusions. No acute osseous abnormality. IMPRESSION: Cardiomegaly with pulmonary edema. Interval improvement in bibasilar airspace opacities. Small bilateral pleural effusions.
--- NOTE | 2018-06-29 11:01 | PN- CRCU ---
Subjective HPI/Critical Care Issues: Did Improve after dialysis and this morning she was getting prbc and sub became acutely dyspneic and now on bipap Imroving after bipap BP running high Dialysis ongoing NO chest pain No sig wheezing Objective Current Medications: Current Medications Sig/Duong Start time Last Medication Dose Route Stop Time Status Admin Acetaminophen 650 MG Q6P PRN 06/28 1245 AC PO Acetaminophen 1,000 MG Q6P PRN 06/28 1245 AC IV Albuterol Sulfate 3 ML Q4P PRN 06/28 1515 AC INH Albuterol Sulfate 3 ML ONCE ONE 06/28 1130 DC 06/28 INH 06/28 1131 1100 Amlodipine Besylate 10 MG DAILY 06/29 0900 AC PO Amlodipine Besylate 0 .STK-MED ONE 06/28 1113 DC PO Amlodipine Besylate 10 MG ONCE ONE 06/28 1100 DC 06/28 PO 06/28 1101 1118 Aspirin 81 MG DAILY 06/29 0900 AC PO Atorvastatin Calcium 40 MG DAILY 06/29 0900 AC PO Doxazosin Mesylate 4 MG DAILY 06/29 0900 AC PO Epoetin Ld 6,000 UNIT MoWeFr 06/30 0933 AC IV Epoetin Ld 6,000 UNIT ONCE ONE 06/29 1100 AC IV 06/29 1101 Epoetin Ld 6,000 UNITS MoWeFr 06/28 1445 DC 06/28 IV 1707 Fish Oil 1,050 MG DAILY 06/28 1228 AC 06/28 PO 1707 Heparin Sodium 5,000 UNIT Q8 06/28 1400 AC 06/29 (Porcine) SC 0549 Heparin Sodium 0 .STK-MED ONE 06/28 1232 DC (Porcine) IV Hydralazine HCl 100 MG TID 06/28 1400 AC 06/28 PO 211 Hydralazine HCl 0 .STK-MED ONE 06/28 1113 DC .ROUTE Hydralazine HCl 20 MG ONCE ONE 06/28 1100 DC 06/28 IV 06/28 1101 1118 Isosorbide 90 MG DAILY 06/28 1226 AC 06/28 Mononitrate PO 1707 Labetalol HCl 300 MG BID 06/28 2100 AC 06/28 PO 2113 Labetalol HCl 0 .STK-MED ONE 06/28 1114 DC IV Labetalol HCl 10 MG ONCE ONE 06/28 1100 DC 06/28 IV 06/28 1101 1146 Lidocaine 0 .STK-MED ONE 06/28 1232 DC .ROUTE Multivitamins 1 TAB DAILY 06/29 0900 AC Therapeutic PO Nitroglycerin 0.4 MG ONCE ONE 06/28 1730 DC 06/28 SL 06/28 1731 1645 Nitroglycerin 0 .STK-MED ONE 06/28 1633 DC SL Omeprazole 40 MG DAILY AC 06/28 1436 AC 06/29 PO 0550 Potassium Chloride 20 MEQ ONCE ONE 06/29 0600 DC 06/29 PO 06/29 0601 0641 Sevelamer Carbonate 800 MG WM 06/28 1700 AC 06/28 PO 1840 Trimethobenzamide HCl 0 .STK-MED ONE 06/29 0937 DC IM Trimethobenzamide HCl 200 MG ONCE ONE 06/29 0930 DC 06/29 IM 06/29 0931 0937 Vital Signs & I&O Last 24 Hrs of Vitals and I&O: Vital Signs Date Time Temp Pulse Resp B/P B/P Pulse O2 O2 Flow FiO2 Mean Ox Delivery Rate 06/29 1018 76 96 06/29 0946 95 06/29 0613 69 96 06/29 0400 95 BIPAP 30% 06/29 0230 73 93 06/29 0104 75 93 06/29 0000 95 BIPAP 30% 06/29 0000 97.9 76 20 150/90 95 BIPAP 30% 06/28 2119 94 BIPAP 30% 06/28 2118 82 94 06/28 2113 79 179/67 06/28 2000 95 Nasal 4.0L Cannula 06/28 2000 98.3 81 25 160/70 95 Nasal 4.0L Cannula 06/28 1840 175/66 06/28 1707 74 160/70 06/28 1630 78 94 06/28 1600 96 BIPAP 30% 06/28 1600 97.2 66 23 170/80 96 BIPAP 30% 06/28 1457 BIPAP 30% 06/28 1400 95 BIPAP 30% 06/28 1400 97.1 68 26 178/84 95 BIPAP 30% 06/28 1342 68 95 06/28 1259 66 17 156/64 97 BIPAP 06/28 1216 65 95 06/28 1141 68 21 184/78 96 BIPAP 06/28 1118 186/82 08 1117 65 97 06/28 1117 64 25 186/82 95 BIPAP 06/28 1100 95 Nasal 4.0L Cannula Intake & Output 06/29 1600 06/29 0800 06/29 0000 Intake Total 100 200 Output Total 600 2700 Balance -500 -2500 Intake, Oral 100 200 Output, 2500 Dialysate Output, Urine 600 200 Patient 205 lb 205 lb Weight Weight Bed scale Bed scale Measurement Method Laboratory Tests 06/29 06/28 06/28 0330 2105 1515 Chemistry Sodium (137 - 145 mmol/L) 144 Potassium (3.5 - 5.1 mmol/L) 3.5 Chloride (98 - 107 mmol/L) 109 H Carbon Dioxide (22 - 30 mmol/L) 22 Anion Gap (5 - 16) 13 BUN (7 - 17 mg/dL) 60 H Creatinine (0.5 - 1.0 mg/dL) 4.4 H Estimated GFR (>60 ml/min) 10 L Glucose (65 - 99 mg/dL) 114 H Calcium (8.4 - 10.2 mg/dL) 8.7 Phosphorus (2.5 - 4.5 mg/dL) 4.5 Magnesium (1.6 - 2.3 mg/dL) 2.2 Total Bilirubin (0.2 - 1.3 mg/dL) 0.6 AST (14 - 36 U/L) 15 ALT (9 - 52 U/L) 21 Troponin I (< 0.11 ng/ml) 0.04 0.05 Albumin (3.5 - 5.0 g/dL) 3.6 Hematology CBC w Diff MAN DIFF ORDERED WBC (4.8 - 10.8 /CUMM) 29.5 H RBC (4.20 - 5.40 /CUMM) 2.49 L Hgb (12.0 - 16.0 G/DL) 7.4 *L Hct (37 - 47 %) 23.0 L MCV (81.0 - 99.0 FL) 92.3 MCH (27.0 - 31.0 PG) 29.9 MCHC (33.0 - 37.0 G/DL) 32.4 L RDW (11.5 - 14.5 %) 15.4 H Plt Count (130 - 400 /CUMM) 184 MPV (7.4 - 10.4 FL) 9.8 Gran % (42.2 - 75.2 %) 94.9 H Lymphocytes % (20.5 - 51.1 %) 1.7 L Monocytes % (1.7 - 9.3 %) 3.4 Eosinophils % (0 - 5 %) 0 Basophils % (0.0 - 2.0 %) 0 Absolute Granulocytes (1.4 - 6.5 /CUMM) 28.0 H Segmented Neutrophils (42.2 - 75.2 %) 80 H Band Neutrophils (0.0 - 5.0 %) 13 H Absolute Lymphocytes (1.2 - 3.4 /CUMM) 0.5 L Lymphocytes (20.5 - 51.1 %) 3 L Monocytes (1.7 - 9.3 %) 3 Absolute Monocytes (0.10 - 0.60 /CUMM) 1.0 H Absolute Eosinophils (0.0 - 0.7 /CUMM) 0 Absolute Basophils (0.0 - 0.2 /CUMM) 0 Metamyelocytes (0.0 - 1.0 %) 1 Platelet Estimate (ADEQUATE) ADEQUATE Polychromasia 1+ Hypochromic-Microcytic 1+ Anisocytosis 1+ Schistocytes 1+ 06/28 06/28 1350 0910 Chemistry Sodium (137 - 145 mmol/L) 145 Potassium (3.5 - 5.1 mmol/L) 3.4 L Chloride (98 - 107 mmol/L) 112 H Carbon Dioxide (22 - 30 mmol/L) 20 L Anion Gap (5 - 16) 13 BUN (7 - 17 mg/dL) 87 H Creatinine (0.5 - 1.0 mg/dL) 5.9 *H Estimated GFR (>60 ml/min) 7 L BUN/Creatinine Ratio (7 - 25 %) 15.3 Glucose (65 - 99 mg/dL) 105 H Calcium (8.4 - 10.2 mg/dL) 8.6 Phosphorus (2.5 - 4.5 mg/dL) 5.8 H Magnesium (1.6 - 2.3 mg/dL) 2.5 H Total Bilirubin (0.2 - 1.3 mg/dL) 0.4 Direct Bilirubin (< 0.4 mg/dL) 0.4 AST (14 - 36 U/L) 13 L ALT (9 - 52 U/L) 19 Alkaline Phosphatase (<127 U/L) 68 Troponin I (< 0.11 ng/ml) 0.05 [id number] Pept (<125 pg/mL) 43370 H Total Protein (6.3 - 8.2 g/dL) 6.3 Albumin (3.5 - 5.0 g/dL) 3.6 TSH &T3 &Free T4 Intrp (0.270 - 4.20 uIU/mL) 3.190 Coagulation PT (9.4 - 12.5 SEC) 13.8 H INR (0.90 - 1.19) 1.26 H APTT (25 - 37 SEC) 31 Hematology CBC w Diff NO MAN DIFF REQ WBC (4.8 - 10.8 /CUMM) 7.8 RBC (4.20 - 5.40 /CUMM) 2.53 L Hgb (12.0 - 16.0 G/DL) 7.7 L Hct (37 - 47 %) 23.3 L MCV (81.0 - 99.0 FL) 91.9 MCH (27.0 - 31.0 PG) 30.3 MCHC (33.0 - 37.0 G/DL) 33.0 RDW (11.5 - 14.5 %) 15.1 H Plt Count (130 - 400 /CUMM) 201 MPV (7.4 - 10.4 FL) 10.1 Gran % (42.2 - 75.2 %) 77.7 H Lymphocytes % (20.5 - 51.1 %) 9.0 L Monocytes % (1.7 - 9.3 %) 6.8 Eosinophils % (0 - 5 %) 5.6 H Basophils % (0.0 - 2.0 %) 0.9 Absolute Granulocytes (1.4 - 6.5 /CUMM) 6.0 Absolute Lymphocytes (1.2 - 3.4 /CUMM) 0.7 L Absolute Monocytes (0.10 - 0.60 /CUMM) 0.5 Absolute Eosinophils (0.0 - 0.7 /CUMM) 0.4 Absolute Basophils (0.0 - 0.2 /CUMM) 0.1 Serology Hep Bs Antigen (NONREACTIVE) NONREACTIVE Hep Bs Antibody (NONREACTIVE) NONREACTIVE Microbiology Date/Time Procedure - Status Source Growth 06/29 0920 Blood Culture - RECD BLOOD 06/29 0815 Blood Culture - RECD BLOOD 06/29 0751 Urine Culture - ORD URINE ROUT 06/29 0736 Respiratory Culture - ORD LOWER RESP 06/29 0736 Gram Stain - ORD LOWER RESP 06/28 1400 Surveillance Culture - RECD UPPER RESP 08/20 1400 Surveillance Culture - RECD GI Impression/Plan Impression/Plan Impression/Plan: General Appearance: Alert, Oriented X3, Cooperative, on BiPAP with moderate distress distress HEENT: Atraumatic Neck: Supple, JVD appeared elevated Cardiovascular: Regular Rate, Normal S1, Normal S2, faint diastolic murmur noted Lungs: OVERALL DECREASED AIR ENTRY AT THE LUNG BASES,. wheezing noted bilaterally, with significant crackles Abdomen: Normal Bowel Sounds, Soft, No Tenderness Neurological: Normal Speech, Normal Tone, Sensation Intact Extremities: EXTREMITY EDEMA IMPRESSION This is a 77-year-old lady with hypertension, hyperlipidemia, type 2 diabetes, chronic significant anemia, worsening chronic kidney diseasestage 5, chronic venous insufficiency, significant diastolic dysfunction with recurrent diastolic heart failure, recurrent mechanical fall at home, probable neuropathy, previous colon polyps, morbid obesity with worsening performance status, significant lumbosacral degeneration with chronic L1 fracture, chronic low back pain, chronic anemia, chronic lower extremity edema, morbid obesity with obstructive sleep apnea history not on CPAP regularly now has * Acute diastolic heart failure with acute hypoxemic respiratory failure on noninvasive ventilation. This is compounded by worsening renal failure now s/ p dilaysis yesterday and ongoing dialysis today * Probable transfusion reaction this am vs flash pulm edema due to Sig HTN (Bp meds held for dialysis this am) * Severe diastolic disease with high LVEDP with mitral stenosis which is compounding the issue * Morbid obesity with NITHIN * Anemia of chronic disease which is now made worse by renal failure / Need transfusion * Significant back pain and gait instability with recent fall aswell rule out significant neuropathy probably from diabetes, compounded by significant degenerative joint and disc disease in the lumbosacral area with L5 nerve root involvement in the left with right foraminal stenosis. * Aneurysmal of abd aorta * Hypertension, hyperlipidemia, diabetes relatively stable at this time * Chronic venous insufficiency with lower extremity edema * Chronic esbl colonization of the bladder with no active evidence of sepsis at this time. PT does have leukocytosis with bandemia after dialysis, no fever dysuria etc PLAN COnt bipap institute her bp meds pedro after dialysis if bp is stable Dialysis today Cont bipap prn COnt statin and other drugs ASA HOld lasix Urint culture and ua Po ppi for now Pt is critically ill 40 mins
--- NOTE | 2018-06-29 14:01 | RADIOLOGY REPORT ---
EXAMINATION: XR PORTABLE CHEST CLINICAL INFORMATION: Shortness of breath after blood transfusion COMPARISON: 06/29/2018 at 7:49 AM TECHNIQUE: Portable frontal view of the chest was obtained. FINDINGS: No significant interval change. Right internal jugular hemodialysis catheter with tip at the mid SVC. Interval improvement in an opacity of the lateral left midlung. Decreasing opacity of the medial right lower lung. Pulmonary vascular congestion. Interstitial prominence, similar to the prior study. Cardiomegaly. No acute osseous abnormality. IMPRESSION: Constellation of findings is most consistent with congestive heart failure exacerbation with interval slight improvement.
[2018-06-29 16:00] VITALS: BP 140/64
[2018-06-29 18:47] LABS: ABSOLUTE BASOPHIL COUNT 0 /CUMM (0.0-0.2); ABSOLUTE EOSINOPHIL COUNT 0 /CUMM (0.0-0.7); ABSOLUTE GRANULOCYTE CT 24.1 /CUMM (1.4-6.5); ABSOLUTE MONOCYTE COUNT 0.8 /CUMM (0.10-0.60); BASOPHIL % 0.1 % (0.0-2.0); EOSINOPHIL % 0 % (0-5); GRANULOCYTE % 92.9 % (42.2-75.2); HEMATOCRIT 22.5 % (37-47); MEAN CORPUSCULAR HGB 29.7 PG (27.0-31.0); MEAN CORPUSCULAR HGB CONC 32.3 G/DL (33.0-37.0); MEAN CORPUSCULAR VOLUME 91.8 FL (81.0-99.0); MEAN PLATELET VOLUME 10.6 FL (7.4-10.4); PLATELET COUNT 193 /CUMM (130-400); RBC DISTRIBUTION WIDTH 15.8 % (11.5-14.5); RED BLOOD CELL CT 2.45 /CUMM (4.20-5.40); WHITE BLOOD CELL COUNT 25.9 /CUMM (4.8-10.8)
[2018-06-29 20:00] VITALS: BP 167/83
[2018-06-30] VITALS: BP 150/90
[2018-06-30 05:47] LABS: ABSOLUTE BASOPHIL COUNT 0 /CUMM (0.0-0.2); ABSOLUTE EOSINOPHIL COUNT 0.1 /CUMM (0.0-0.7); ABSOLUTE GRANULOCYTE CT 20.4 /CUMM (1.4-6.5); ABSOLUTE LYMPH COUNT 1.2 /CUMM (1.2-3.4); ABSOLUTE MONOCYTE COUNT 0.7 /CUMM (0.10-0.60); BASOPHIL % 0.2 % (0.0-2.0); EOSINOPHIL % 0.3 % (0-5); GRANULOCYTE % 91.2 % (42.2-75.2); HEMATOCRIT 22.7 % (37-47); MEAN CORPUSCULAR HGB 30.2 PG (27.0-31.0); MEAN CORPUSCULAR HGB CONC 32.5 G/DL (33.0-37.0); MEAN PLATELET VOLUME 9.9 FL (7.4-10.4); PLATELET COUNT 162 /CUMM (130-400); RBC DISTRIBUTION WIDTH 15.8 % (11.5-14.5); RED BLOOD CELL CT 2.44 /CUMM (4.20-5.40)
[2018-06-30 06:14] LABS: WHITE BLOOD CELL COUNT 22.4 /CUMM (4.8-10.8)
--- NOTE | 2018-06-30 07:14 | PN- Resident CRCU ---
Subjective HPI/CRCU Issues: #Acute hypoxemic respiratory failure #Acute diastolic failure #Mitral stenosis #Morbid obesity with obstructive sleep apnea #CKD stage V #Anemia of chronic disease #Chronic ESBL colonization of bladder #Hypertension, hyperlipidemia, diabetes, chronic venous insufficiency with lower extremity edema 24 Hour Events: No overnight acute events noted Patient maintained on BiPAP After starting dialysis within 1 hour patient underwent acute respiratory distress similar appearance as compared to yesterday and oxygen saturation dropped to 84. Troponin and EKG obtained. Patient received morphine. Start chest x-ray was ordered. Nitro-Bid was also placed for possible cardiac etiology. Since blood pressure was elevated up to 190s-200/90s Objective Vital Signs & I&O Last 8 Hrs of Vitals and I&O: Laboratory Tests 06/30 06/30 06/30 0916 0910 0415 Blood Gas pH (7.35 - 7.45 PH) 7.42 pCO2 (35 - 45 TORR) 41 pO2 (80 - 100 TORR) 64 L HCO3 (21 - 28 MEQ/L) 26 ABG O2 Sat (Measured) (>96.0 %) 93.0 L P-50 (Temp Corrected) N Carboxyhemoglobin (1.5 - 5.0 %) 0.2 L O2 Concentration % 50% Respiration Rate (BPM) 18 O2 Delivery Method BIPAP Vent Mode ST Expiratory Pressure (CM H2O P) 6 Inspiratory Pressure (CM H2O P) 16 Chemistry Sodium (137 - 145 mmol/L) 141 Potassium (3.5 - 5.1 mmol/L) 3.6 Chloride (98 - 107 mmol/L) 106 Carbon Dioxide (22 - 30 mmol/L) 26 Anion Gap (5 - 16) 9 BUN (7 - 17 mg/dL) 45 H Creatinine (0.5 - 1.0 mg/dL) 3.1 H Estimated GFR (>60 ml/min) 15 L Glucose (65 - 99 mg/dL) 89 Calcium (8.4 - 10.2 mg/dL) 8.7 Phosphorus (2.5 - 4.5 mg/dL) 2.7 Magnesium (1.6 - 2.3 mg/dL) 2.1 Total Bilirubin (0.2 - 1.3 mg/dL) 0.6 AST (14 - 36 U/L) 16 ALT (9 - 52 U/L) 24 Troponin I (< 0.11 ng/ml) 0.09 Albumin (3.5 - 5.0 g/dL) 3.4 L Hematology CBC w Diff NO MAN DIFF REQ WBC (4.8 - 10.8 /CUMM) 22.4 H RBC (4.20 - 5.40 /CUMM) 2.44 L Hgb (12.0 - 16.0 G/DL) 7.4 *L Hct (37 - 47 %) 22.7 L MCV (81.0 - 99.0 FL) 93.0 MCH (27.0 - 31.0 PG) 30.2 MCHC (33.0 - 37.0 G/DL) 32.5 L RDW (11.5 - 14.5 %) 15.8 H Plt Count (130 - 400 /CUMM) 162 MPV (7.4 - 10.4 FL) 9.9 Gran % (42.2 - 75.2 %) 91.2 H Lymphocytes % (20.5 - 51.1 %) 5.4 L Monocytes % (1.7 - 9.3 %) 2.9 Eosinophils % (0 - 5 %) 0.3 Basophils % (0.0 - 2.0 %) 0.2 Absolute Granulocytes (1.4 - 6.5 /CUMM) 20.4 H Absolute Lymphocytes (1.2 - 3.4 /CUMM) 1.2 Absolute Monocytes (0.10 - 0.60 /CUMM) 0.7 H Absolute Eosinophils (0.0 - 0.7 /CUMM) 0.1 Absolute Basophils (0.0 - 0.2 /CUMM) 0 Miscellaneous Phlebotomy Draw Site RIGHT RADIAL 06/29 06/29 0022 4363 Chemistry Sodium (137 - 145 mmol/L) 139 Potassium (3.5 - 5.1 mmol/L) 3.5 Chloride (98 - 107 mmol/L) 106 Carbon Dioxide (22 - 30 mmol/L) 27 Anion Gap (5 - 16) 7 BUN (7 - 17 mg/dL) 37 H Creatinine (0.5 - 1.0 mg/dL) 2.7 H Estimated GFR (>60 ml/min) 17 L Glucose (65 - 99 mg/dL) 120 H Calcium (8.4 - 10.2 mg/dL) 8.8 Phosphorus (2.5 - 4.5 mg/dL) 2.8 Magnesium (1.6 - 2.3 mg/dL) 2.0 Total Bilirubin (0.2 - 1.3 mg/dL) 0.4 AST (14 - 36 U/L) 14 ALT (9 - 52 U/L) 19 Albumin (3.5 - 5.0 g/dL) 3.4 L Hematology CBC w Diff MAN DIFF ORDERED WBC (4.8 - 10.8 /CUMM) 25.9 H RBC (4.20 - 5.40 /CUMM) 2.45 L Hgb (12.0 - 16.0 G/DL) 7.3 *L Hct (37 - 47 %) 22.5 L MCV (81.0 - 99.0 FL) 91.8 MCH (27.0 - 31.0 PG) 29.7 MCHC (33.0 - 37.0 G/DL) 32.3 L RDW (11.5 - 14.5 %) 15.8 H Plt Count (130 - 400 /CUMM) 193 MPV (7.4 - 10.4 FL) 10.6 H Gran % (42.2 - 75.2 %) 92.9 H Lymphocytes % (20.5 - 51.1 %) 3.8 L Monocytes % (1.7 - 9.3 %) 3.2 Eosinophils % (0 - 5 %) 0 Basophils % (0.0 - 2.0 %) 0.1 Absolute Granulocytes (1.4 - 6.5 /CUMM) 24.1 H Segmented Neutrophils (42.2 - 75.2 %) 91 H Band Neutrophils (0.0 - 5.0 %) 2 Absolute Lymphocytes (1.2 - 3.4 /CUMM) 1.0 L Lymphocytes (20.5 - 51.1 %) 6 L Monocytes (1.7 - 9.3 %) 1 L Absolute Monocytes (0.10 - 0.60 /CUMM) 0.8 H Absolute Eosinophils (0.0 - 0.7 /CUMM) 0 Absolute Basophils (0.0 - 0.2 /CUMM) 0 Platelet Estimate (ADEQUATE) ADEQUATE Hypochromic-Microcytic 2+ Basophilic Stippling RARE Anisocytosis 1+ Stomatocytes RARE Urines Urinalysis LIGHT H Urine Color (YEL,AMB,STR) YEL Urine Clarity (CLEAR) CLDY H Urine pH (5.0 - 8.0) 6.0 Ur Specific [place] (1.001 - 1.035) 1.025 Urine Protein (NEG,<30 MG/DL) 100 H Urine Ketones (NEG) NEG Urine Nitrite (NEG) NEG Urine Bilirubin (NEG) NEG Urine Urobilinogen (0.1 - 1.0 EU/dl) 0.2 Ur Leukocyte Esterase (NEG) LARGE H Ur Microscopic SEDIMENT EXAMINED Urine RBC (0 - 5 /HPF) RARE Urine WBC (0 - 2 /HPF) 50-75 H Ur Epithelial Cells (NONE,FEW) MANY H Urine Bacteria (NEG/NONE) PACKD H Urine Mucus (FEW,NONE) FEW Urine Hemoglobin (NEG) NEG Urine Glucose (N MG/DL) NEG Vital Signs Date Time Temp Pulse Resp B/P B/P Pulse O2 O2 Flow FiO2 Mean Ox Delivery Rate 06/30 1426 164/62 06/30 1200 02 Nasal 4.0L Cannula 06/30 1129 61 98 06/30 1116 176/70 06/30 0950 199/90 06/30 0950 199/90 06/30 0950 199/90 06/30 0855 92 BIPAP 50% 06/30 0854 72 93 06/30 0800 97.9 70 20 196/88 96 BIPAP 40% 06/30 0800 96 BIPAP 40% 06/30 0550 64 95 06/30 0400 95 BIPAP 40% 06/30 0317 61 96 06/30 0023 62 95 06/30 0000 97 BIPAP 40% 06/30 0000 98.5 59 20 150/90 97 BIPAP 40% 06/29 2219 62 93 06/29 2219 94 Nasal 3.0L Cannula 06/29 2032 67 21 167/83 06/29 2031 65 21 167/83 06/29 2000 97.5 65 21 167/83 94 Nasal 3.0L Cannula 06/29 1616 62 157/67 06/29 1600 97.7 84 22 140/64 93 Nasal 3.0L Cannula 06/29 1600 93 Nasal 3.0L Cannula Intake & Output 06/30 1600 06/30 0800 06/30 0000 Intake Total 240 100 570 Output Total 2150 200 200 Balance -1910 -100 370 Intake, IV 20 Intake, Oral 220 100 570 Number 0 Bowel Movements Output, 1999 Dialysate Output, Urine 150 200 200 Patient 185 lb 189 lb Weight Weight Bed scale Bed scale Measurement Method Intake & Output 06/30 1600 Intake Total 240 Output Total 2150 Balance -1910 Intake, IV 20 Intake, Oral 220 Number 0 Bowel Movements Output, 2000 Dialysate Output, Urine 150 Patient 185 lb Weight Weight Bed scale Measurement Method Exam General Appearance: alert Other Physical Findings: Respiratory: decreased breath sounds, accessory muscle use, no wheezing Cardiovascular: regular rate/rhythm Gastrointestinal: normal bowel sounds, soft Extremities: b/l lower extremeity edema +1 Current Medications: Current Medications Sig/Duong Start time Last Medication Dose Route Stop Time Status Admin Acetaminophen 650 MG Q6P PRN 06/28 1245 AC 06/30 PO 1423 Acetaminophen 1,000 MG Q6P PRN 06/28 1245 AC IV Albuterol Sulfate 3 ML Q4P PRN 06/28 1515 AC 06/30 INH 0855 Amlodipine Besylate 10 MG 1700 07/01 1700 AC PO Amlodipine Besylate 10 MG DAILY 06/29 0900 DC 06/30 PO 1116 Aspirin 81 MG DAILY 06/29 0900 AC 06/30 PO 1115 Atorvastatin Calcium 40 MG DAILY 06/29 0900 AC 06/30 PO 1116 Doxazosin Mesylate 4 MG 1700 07/01 1700 AC PO Doxazosin Mesylate 4 MG DAILY 06/29 0900 AC 06/30 PO 07/01 0900 1115 Epoetin Ld 6,000 UNIT MoWeFr 06/30 0933 DC IV Fish Oil 1,050 MG DAILY 06/28 1228 AC 06/30 PO 1116 Heparin Sodium 5,000 UNIT Q8 06/28 1400 AC 06/30 (Porcine) SC 1424 Hydralazine HCl 100 MG Q8 06/30 1400 AC 06/30 PO 1426 Hydralazine HCl 100 MG TID 06/28 1400 DC 06/30 PO 0950 Isosorbide 90 MG DAILY 06/28 1226 AC 06/30 Mononitrate PO 0950 Labetalol HCl 300 MG BID 06/28 2100 AC 06/30 PO 0950 Morphine Sulfate 0 .STK-MED ONE 06/30 09 DC .ROUTE Morphine Sulfate 2 MG ONCE ONE 06/30 0900 DC 06/30 IV 06/30 0901 0902 Multivitamins 1 TAB DAILY 06/29 0900 AC 06/30 Therapeutic PO 1117 Nitroglycerin 0.5 GM ONCE ONE 06/30 0930 DC 06/30 TOP 06/30 0931 0929 Nitroglycerin 0 .STK-MED ONE 06/30 0929 DC TOP Nystatin 1 FUENTES BID 06/29 2100 AC 06/30 TOP 1118 Omeprazole 40 MG DAILY AC 06/28 1436 AC 06/30 PO 0619 Sevelamer Carbonate 800 MG WM 06/28 1700 AC 06/30 PO 1117 Trimethobenzamide HCl 200 MG ONCE ONE 06/30 0900 DC 06/30 IM 06/30 0901 0857 Trimethobenzamide HCl 0 .STK-MED ONE 06/30 0857 DC IM Impression/Plan Impression/Problem List Impression: The patient is 77-year-old female with past medical history of hypertension, hyperlipidemia, type 2 diabetes mellitus, chronic venous insufficiency, ESRD, anemia of chronic disease, congestive heart failure with preserved ejection fraction severe diastolic dysfunction, morbid obesity, obstructive sleep apnea, chronic back pain, lumbosacral disc degeneration with chronic L1 fracture, recurrent falls. She was brought in by ambulance with chief complaint of shortness of breath. She was initially admitted to telemetry floor later transferred to ICU in setting of acute need of dialysis. She is currently being treated and evaluated for following conditions #Acute hypoxemic respiratory failure in setting of acute exacerbation of HFpEF ( acute diastolic heart failure), compounded by worsening renal failure Vol overload and mitral stenosis Chest x-ray consistent with cardiomegaly and pulmonary edema consistent with congestive heart failure. ProBNP 26546. Recent echocardiogram on normal left ventricular size, EF of 60-65%, moderately increased left ventricular wall thickness month, diastolic heart failure and moderate pulmonary hypertension. Patient was initially discharged on June 10 on 40 mg, however recently the Lasix dosage has been increased to 40 mg twice a day, received additional 60 mg IV Lasix while at the emergency department along with topical nitrates. Which might have put patient in PATO on CKD -Continue BiPAP PRN -TRC and maintain oxygen saturation greater than 92% -Continue dialysis -Hold off Lasix -Continue to monitor intake/output -Daily weights -Monitor electrolytes and replete accordingly -Continue statin and aspirin # Hypertension She came in with pressure of 170/72, she has tendency to have high blood pressure and is on multiple medications to control high blood pressure including isosorbide mononitrate 90 mg once daily, labetalol 300 mg twice a day, Lasix 40 mg twice a day, hydralazine 100 mg 3 times a day, doxazosin 4 mg tablet once daily and amlodipine 10 mg once daily. She received 10 mg of Norvasc, 20 mg of IV hydralazine and 10 mg of IV labetalol Her home medication of minoxidil was recently discontinued by her outpatient yard supervisor, for not taking it anymore. -Continue to monitor blood pressure -All home medication have been resumed -We are going to change her daily medications to every afternoon thought that her medications are not held in the morning because of dialysis. And she does not become hypertensive. Consider addition of minoxidil if her blood pressure is significantly elevated #Acute desaturation with shortness of breath Patient had a similar episode as compared to yesterday today morning. She became tachypneic with respiratory rate going up to 40s. Chest x-ray did not show any acute pulmonary edema. Troponins were negative EKG showed some changes which could just reflect poor lead placement. We will repeat an EKG today after some time. Cardiology following. Initially it was thought that she might be reacting to dialyzer. However after discussion with Dr. Long her blood pressure remains high actually. It is possible that patient is anxious secondary to dialysis? Causing increased respiratory rates causing desaturation however the saturation with anxiety is less common. Pulmonary edema significantly to significant hypertension? However chest x-ray remains negative for flash pulmonary edema. Acute lung injury? -The episode self resolved as usual. -Patient was weaned off BiPAP to nasal cannula. #Probable transfusion reaction Patient became acutely short of breath after starting the transfusion within 10 minutes. She was on nasal cannula at that point. He started desaturating up to 80 patient was immediately started on BiPAP and her oxygen saturation came right back up in greater than 95%. Patient was afebrile. Blood transfusion. Blood has been sent for transfusion reaction will follow up the results. Patient had a similar episode again today without any blood transfusion so it might not have been a transfusion reaction to begin with. #PATO on CKD - 4 likely secondary to hypertension and diabetes Patient underwent temporary catheter placement on the day of admission and will be maintained on dialysis -Continue dialysis as per nephrology #Anemia of chronic disease in setting of CKD -Guaiac all stools. -Epogen 6000 units 3 times a week -ct to monitor, H/H stable at 7.3/22.7 no transfusion done. #Leukocytosis and bandemia Pants disappeared. Leukocytosis improving. Patient remains afebrile. She is not on any steroids. -Continue to monitor -Monitor off antibiotics discussed with Dr. Vang # HLD -ct Crestor #Chronic lower extremtiy edema Chronic edema is secondary to a combination of chronic venous insufficiency along with diastolic dysfunction, she says that her edema has been better after recent increase in Lasix dosage. -Do not suspect any DVT as this is her baseline edema and there is no acute change. -Continue diuresis per cardio. #Obstructive sleep apnea -Maintain on BiPAP FC/heparin dvt px Problem List: 1. Acute kidney failure Pain Ratin Tomorrow's Labs & Rationales: cbc icu bundle Plan DVT/Prophylaxis: mechanical, pharmacological
[2018-06-30 08:00] VITALS: BP 196/88
--- NOTE | 2018-06-30 08:30 | PN- Nephrology ---
Assessment/Plan Nephrology Assessment: Dialysis today. May still be mildly volume overloaded. Suggestion: UF another 2 liters. Please order venous ultrasound of both upper extremities for mapping and futhre placement of AVF. Also once stable will need DLQ changed to Neal by IR. Subjective Subjective: Still on bipap. No other complaints. today. Had possible transfusion reaction yesterday so unclear how much of blood he received. Objective Vital Signs and I&Os Vital Signs Date Time Temp Pulse Resp B/P B/P Pulse O2 O2 Flow FiO2 Mean Ox Delivery Rate 06/30 0550 64 95 06/30 0400 95 BIPAP 40% 06/30 0317 61 96 06/30 0023 62 95 06/30 0000 97 BIPAP 40% 06/30 0000 98.5 59 20 150/90 97 BIPAP 40% 06/29 2219 62 93 06/29 2219 94 Nasal 3.0L Cannula 06/29 2032 67 21 167/83 06/29 2031 65 21 167/83 06/29 2000 97.5 65 21 167/83 94 Nasal 3.0L Cannula 06/29 1616 62 157/67 06/29 1600 97.7 84 22 140/64 93 Nasal 3.0L Cannula 06/29 1600 93 Nasal 3.0L Cannula 06/29 1351 174/74 06/29 1301 95 06/29 1205 64 170/70 06/29 1205 170/70 06/29 1204 176/73 06/29 1200 97 Nasal 4.0L Cannula 06/29 1018 76 96 06/29 0946 95 06/29 0915 95 BIPAP 30% Intake & Output 06/30 1600 06/30 0400 06/29 1600 06/29 0400 06/28 1600 06/28 0400 Intake Total 100 570 590 200 0 Output Total 220 478 8276 2700 800 Balance -100 370 -2110 -2500 -800 Intake, Blood 50 Product Intake, Oral 100 570 540 200 0 Number 0 Bowel Movements Output, 1999 2500 Dialysate Output, Urine 200 200 700 200 800 Patient 200 lb 199 lb 205 lb 215 lb Weight Weight Bed scale Bed scale Bed scale Bed scale Measurement Method Physical Exam: NAD VS as above Lungs: some scattered rhonchi CV: no rub Abd: nontender Exts : trace edema Neuro: A&O, no asterixis. Current Medications: Current Medications Sig/Duong Start time Last Medication Dose Route Stop Time Status Admin Acetaminophen 650 MG Q6P PRN 06/28 1245 AC PO Acetaminophen 1,000 MG Q6P PRN 06/28 1245 AC IV Albuterol Sulfate 3 ML Q4P PRN 06/28 1515 AC INH Amlodipine Besylate 10 MG DAILY 06/29 0900 AC 06/29 PO 1205 Aspirin 81 MG DAILY 06/29 0900 AC 06/29 PO 1205 Atorvastatin Calcium 40 MG DAILY 06/29 0900 AC 06/29 PO 1204 Doxazosin Mesylate 4 MG DAILY 06/29 0900 AC 06/29 PO 1205 Epoetin Ld 6,000 UNIT MoWeFr 06/30 0933 DC IV Epoetin Ld 6,000 UNIT ONCE ONE 06/29 1100 DC 06/29 IV 06/29 1101 1203 Epoetin Ld 6,000 UNITS MoWeFr 06/28 1445 DC 06/28 IV 1707 Fish Oil 1,050 MG DAILY 06/28 1228 AC 06/29 PO 1351 Heparin Sodium 5,000 UNIT Q8 06/28 1400 AC 06/30 (Porcine) SC 0619 Hydralazine HCl 100 MG TID 06/28 1400 AC 06/29 PO 2032 Isosorbide 90 MG DAILY 06/28 1226 AC 06/29 Mononitrate PO 1351 Labetalol HCl 300 MG BID 06/28 2100 AC 06/29 PO 2031 Multivitamins 1 TAB DAILY 06/29 0900 AC 06/29 Therapeutic PO 1204 Nystatin 1 FUENTES BID 06/29 2100 AC TOP Omeprazole 40 MG DAILY AC 06/28 1436 AC 06/30 PO 0619 Potassium Chloride 20 MEQ ONCE ONE 06/29 1500 CAN PO 06/29 1501 Sevelamer Carbonate 800 MG WM 06/28 1700 AC 06/29 PO 1616 Trimethobenzamide HCl 0 .STK-MED ONE 06/29 0937 DC IM Trimethobenzamide HCl 200 MG ONCE ONE 06/29 09 DC 06/29 IM 06/29 0931 0937 Results Pertinent Lab Results: Laboratory Tests 06/30 06/29 0415 2140 Chemistry Sodium (137 - 145 mmol/L) 141 Potassium (3.5 - 5.1 mmol/L) 3.6 Chloride (98 - 107 mmol/L) 106 Carbon Dioxide (22 - 30 mmol/L) 26 Anion Gap (5 - 16) 9 BUN (7 - 17 mg/dL) 45 H Creatinine (0.5 - 1.0 mg/dL) 3.1 H Estimated GFR (>60 ml/min) 15 L Glucose (65 - 99 mg/dL) 89 Calcium (8.4 - 10.2 mg/dL) 8.7 Phosphorus (2.5 - 4.5 mg/dL) 2.7 Magnesium (1.6 - 2.3 mg/dL) 2.1 Total Bilirubin (0.2 - 1.3 mg/dL) 0.6 AST (14 - 36 U/L) 16 ALT (9 - 52 U/L) 24 Albumin (3.5 - 5.0 g/dL) 3.4 L Hematology CBC w Diff NO MAN DIFF REQ WBC (4.8 - 10.8 /CUMM) 22.4 H RBC (4.20 - 5.40 /CUMM) 2.44 L Hgb (12.0 - 16.0 G/DL) 7.4 *L Hct (37 - 47 %) 22.7 L MCV (81.0 - 99.0 FL) 93.0 MCH (27.0 - 31.0 PG) 30.2 MCHC (33.0 - 37.0 G/DL) 32.5 L RDW (11.5 - 14.5 %) 15.8 H Plt Count (130 - 400 /CUMM) 162 MPV (7.4 - 10.4 FL) 9.9 Gran % (42.2 - 75.2 %) 91.2 H Lymphocytes % (20.5 - 51.1 %) 5.4 L Monocytes % (1.7 - 9.3 %) 2.9 Eosinophils % (0 - 5 %) 0.3 Basophils % (0.0 - 2.0 %) 0.2 Absolute Granulocytes (1.4 - 6.5 /CUMM) 20.4 H Absolute Lymphocytes (1.2 - 3.4 /CUMM) 1.2 Absolute Monocytes (0.10 - 0.60 /CUMM) 0.7 H Absolute Eosinophils (0.0 - 0.7 /CUMM) 0.1 Absolute Basophils (0.0 - 0.2 /CUMM) 0 Urines Urinalysis LIGHT H Urine Color (YEL,AMB,STR) YEL Urine Clarity (CLEAR) CLDY H Urine pH (5.0 - 8.0) 6.0 Ur Specific [place] (1.001 - 1.035) 1.025 Urine Protein (NEG,<30 MG/DL) 100 H Urine Ketones (NEG) NEG Urine Nitrite (NEG) NEG Urine Bilirubin (NEG) NEG Urine Urobilinogen (0.1 - 1.0 EU/dl) 0.2 Ur Leukocyte Esterase (NEG) LARGE H Ur Microscopic SEDIMENT EXAMINED Urine RBC (0 - 5 /HPF) RARE Urine WBC (0 - 2 /HPF) 50-75 H Ur Epithelial Cells (NONE,FEW) MANY H Urine Bacteria (NEG/NONE) PACKD H Urine Mucus (FEW,NONE) FEW Urine Hemoglobin (NEG) NEG Urine Glucose (N MG/DL) NEG 06/29 06/29 1817 0330 Chemistry Sodium (137 - 145 mmol/L) 139 144 Potassium (3.5 - 5.1 mmol/L) 3.5 3.5 Chloride (98 - 107 mmol/L) 106 109 H Carbon Dioxide (22 - 30 mmol/L) 27 22 Anion Gap (5 - 16) 7 13 BUN (7 - 17 mg/dL) 37 H 60 H Creatinine (0.5 - 1.0 mg/dL) 2.7 H 4.4 H Estimated GFR (>60 ml/min) 17 L 10 L Glucose (65 - 99 mg/dL) 120 H 114 H Calcium (8.4 - 10.2 mg/dL) 8.8 8.7 Phosphorus (2.5 - 4.5 mg/dL) 2.8 4.5 Magnesium (1.6 - 2.3 mg/dL) 2.0 2.2 Total Bilirubin (0.2 - 1.3 mg/dL) 0.4 0.6 AST (14 - 36 U/L) 14 15 ALT (9 - 52 U/L) 19 21 Albumin (3.5 - 5.0 g/dL) 3.4 L 3.6 Hematology CBC w Diff MAN DIFF ORDERED MAN DIFF ORDERED WBC (4.8 - 10.8 /CUMM) 25.9 H 29.5 H RBC (4.20 - 5.40 /CUMM) 2.45 L 2.49 L Hgb (12.0 - 16.0 G/DL) 7.3 *L 7.4 *L Hct (37 - 47 %) 22.5 L 23.0 L MCV (81.0 - 99.0 FL) 91.8 92.3 MCH (27.0 - 31.0 PG) 29.7 29.9 MCHC (33.0 - 37.0 G/DL) 32.3 L 32.4 L RDW (11.5 - 14.5 %) 15.8 H 15.4 H Plt Count (130 - 400 /CUMM) 193 184 MPV (7.4 - 10.4 FL) 10.6 H 9.8 Gran % (42.2 - 75.2 %) 92.9 H 94.9 H Lymphocytes % (20.5 - 51.1 %) 3.8 L 1.7 L Monocytes % (1.7 - 9.3 %) 3.2 3.4 Eosinophils % (0 - 5 %) 0 0 Basophils % (0.0 - 2.0 %) 0.1 0 Absolute Granulocytes (1.4 - 6.5 /CUMM) 24.1 H 28.0 H Segmented Neutrophils (42.2 - 75.2 %) 91 H 80 H Band Neutrophils (0.0 - 5.0 %) 2 13 H Absolute Lymphocytes (1.2 - 3.4 /CUMM) 1.0 L 0.5 L Lymphocytes (20.5 - 51.1 %) 6 L 3 L Monocytes (1.7 - 9.3 %) 1 L 3 Absolute Monocytes (0.10 - 0.60 /CUMM) 0.8 H 1.0 H Absolute Eosinophils (0.0 - 0.7 /CUMM) 0 0 Absolute Basophils (0.0 - 0.2 /CUMM) 0 0 Metamyelocytes (0.0 - 1.0 %) 1 Platelet Estimate (ADEQUATE) ADEQUATE ADEQUATE Polychromasia 1+ Hypochromic-Microcytic 2+ 1+ Basophilic Stippling RARE Anisocytosis 1+ 1+ Stomatocytes RARE Schistocytes 1+ 06/28 06/28 06/28 2105 1515 1350 Chemistry Troponin I (< 0.11 ng/ml) 0.04 0.05 Serology Hep Bs Antigen (NONREACTIVE) NONREACTIVE Hep Bs Antibody (NONREACTIVE) NONREACTIVE 06/28 0910 Chemistry Sodium (137 - 145 mmol/L) 145 Potassium (3.5 - 5.1 mmol/L) 3.4 L Chloride (98 - 107 mmol/L) 112 H Carbon Dioxide (22 - 30 mmol/L) 20 L Anion Gap (5 - 16) 13 BUN (7 - 17 mg/dL) 87 H Creatinine (0.5 - 1.0 mg/dL) 5.9 *H Estimated GFR (>60 ml/min) 7 L BUN/Creatinine Ratio (7 - 25 %) 15.3 Glucose (65 - 99 mg/dL) 105 H Calcium (8.4 - 10.2 mg/dL) 8.6 Phosphorus (2.5 - 4.5 mg/dL) 5.8 H Magnesium (1.6 - 2.3 mg/dL) 2.5 H Total Bilirubin (0.2 - 1.3 mg/dL) 0.4 Direct Bilirubin (< 0.4 mg/dL) 0.4 AST (14 - 36 U/L) 13 L ALT (9 - 52 U/L) 19 Alkaline Phosphatase (<127 U/L) 68 Troponin I (< 0.11 ng/ml) 0.05 [id number] Pept (<125 pg/mL) 42686 H Total Protein (6.3 - 8.2 g/dL) 6.3 Albumin (3.5 - 5.0 g/dL) 3.6 TSH &T3 &Free T4 Intrp (0.270 - 4.20 uIU/mL) 3.190 Coagulation PT (9.4 - 12.5 SEC) 13.8 H INR (0.90 - 1.19) 1.26 H APTT (25 - 37 SEC) 31 Hematology CBC w Diff NO MAN DIFF REQ WBC (4.8 - 10.8 /CUMM) 7.8 RBC (4.20 - 5.40 /CUMM) 2.53 L Hgb (12.0 - 16.0 G/DL) 7.7 L Hct (37 - 47 %) 23.3 L MCV (81.0 - 99.0 FL) 91.9 MCH (27.0 - 31.0 PG) 30.3 MCHC (33.0 - 37.0 G/DL) 33.0 RDW (11.5 - 14.5 %) 15.1 H Plt Count (130 - 400 /CUMM) 201 MPV (7.4 - 10.4 FL) 10.1 Gran % (42.2 - 75.2 %) 77.7 H Lymphocytes % (20.5 - 51.1 %) 9.0 L Monocytes % (1.7 - 9.3 %) 6.8 Eosinophils % (0 - 5 %) 5.6 H Basophils % (0.0 - 2.0 %) 0.9 Absolute Granulocytes (1.4 - 6.5 /CUMM) 6.0 Absolute Lymphocytes (1.2 - 3.4 /CUMM) 0.7 L Absolute Monocytes (0.10 - 0.60 /CUMM) 0.5 Absolute Eosinophils (0.0 - 0.7 /CUMM) 0.4 Absolute Basophils (0.0 - 0.2 /CUMM) 0.1
--- NOTE | 2018-06-30 10:07 | PN- CRCU ---
Subjective HPI/Critical Care Issues: PT undergoing dialysis After the dialysis was started appeared to have gone into acute resp distress with HTN sugg of pulm edema/ vs ALI Objective Current Medications: Current Medications Sig/Duong Start time Last Medication Dose Route Stop Time Status Admin Acetaminophen 650 MG Q6P PRN 06/28 1245 AC PO Acetaminophen 1,000 MG Q6P PRN 06/28 1245 AC IV Albuterol Sulfate 3 ML Q4P PRN 06/28 1515 AC 06/30 INH 0855 Amlodipine Besylate 10 MG DAILY 06/29 0900 AC 06/29 PO 1205 Aspirin 81 MG DAILY 06/29 0900 AC 06/29 PO 1205 Atorvastatin Calcium 40 MG DAILY 06/29 0900 AC 06/29 PO 1204 Doxazosin Mesylate 4 MG DAILY 06/29 09 AC 06/29 PO 1205 Epoetin Ld 6,000 UNIT MoWeFr 06/30 0933 DC IV Epoetin Ld 6,000 UNIT ONCE ONE 06/29 1100 DC 06/29 IV 06/29 1101 1203 Fish Oil 1,050 MG DAILY 06/28 1228 AC 06/29 PO 1351 Heparin Sodium 5,000 UNIT Q8 06/28 1400 AC 06/30 (Porcine) SC 0619 Hydralazine HCl 100 MG TID 06/28 1400 AC 06/30 PO 0950 Isosorbide 90 MG DAILY 06/28 1226 AC 06/30 Mononitrate PO 0950 Labetalol HCl 300 MG BID 06/28 2100 AC 06/30 PO 0950 Morphine Sulfate 0 .STK-MED ONE 06/30 09 DC .ROUTE Morphine Sulfate 2 MG ONCE ONE 06/30 900 UNVr 06/30 IV 06/30 0901 0902 Multivitamins 1 TAB DAILY 06/29 0900 AC 06/29 Therapeutic PO 1204 Nitroglycerin 0.5 GM ONCE ONE 06/30 930 UNVr 06/30 TOP 06/30 0931 0929 Nitroglycerin 0 .STK-MED ONE 06/30 09 DC TOP Nystatin 1 FUENTES BID 06/29 2100 AC TOP Omeprazole 40 MG DAILY AC 06/28 1436 AC 06/30 PO 0619 Potassium Chloride 20 MEQ ONCE ONE 06/29 1500 CAN PO 06/29 1501 Sevelamer Carbonate 800 MG WM 06/28 1700 AC 06/29 PO 1616 Trimethobenzamide HCl 200 MG ONCE ONE 06/30 0900 UNVr 06/30 IM 06/30 0901 0857 Trimethobenzamide HCl 0 .STK-MED ONE 06/30 0857 DC IM Vital Signs & I&O Last 24 Hrs of Vitals and I&O: Vital Signs Date Time Temp Pulse Resp B/P B/P Pulse O2 O2 Flow FiO2 Mean Ox Delivery Rate 06/30 0950 199/90 06/30 0950 199/90 06/30 0950 199/90 06/30 0854 72 93 06/30 0800 97.9 70 20 196/88 96 BIPAP 40% 06/30 0800 96 BIPAP 40% 06/30 0550 64 95 06/30 0400 95 BIPAP 40% 06/30 0317 61 96 06/30 0023 62 95 06/30 0000 97 BIPAP 40% 06/30 0000 98.5 59 20 150/90 97 BIPAP 40% 06/29 2219 62 93 06/29 2219 94 Nasal 3.0L Cannula 06/29 2032 67 21 167/83 06/29 2031 65 21 167/83 06/29 2000 97.5 65 21 167/83 94 Nasal 3.0L Cannula 06/29 1616 62 157/67 06/29 1600 97.7 84 22 140/64 93 Nasal 3.0L Cannula 06/29 1600 93 Nasal 3.0L Cannula 06/29 1351 174/74 06/29 1301 95 06/29 1205 64 170/70 06/29 1205 170/70 06/29 1204 176/73 06/29 1200 97 Nasal 4.0L Cannula 06/29 1018 76 96 Intake & Output 06/30 1600 06/30 0800 06/30 0000 Intake Total 100 570 Output Total 200 200 Balance -100 370 Intake, Oral 100 570 Output, Urine 200 200 Patient 189 lb Weight Weight Bed scale Measurement Method Impression/Plan Impression/Plan Impression/Plan: General Appearance: Alert, Oriented X3, Cooperative, on BiPAP with moderate distress distress HEENT: Atraumatic Neck: Supple, JVD appeared elevated Cardiovascular: Regular Rate, Normal S1, Normal S2, faint diastolic murmur noted Lungs: OVERALL DECREASED AIR ENTRY AT THE LUNG BASES,. wheezing noted bilaterally, with significant crackles Abdomen: Normal Bowel Sounds, Soft, No Tenderness Neurological: Normal Speech, Normal Tone, Sensation Intact Extremities: EXTREMITY EDEMA IMPRESSION This is a 77-year-old lady with hypertension, hyperlipidemia, type 2 diabetes, chronic significant anemia, worsening chronic kidney diseasestage 5, chronic venous insufficiency, significant diastolic dysfunction with recurrent diastolic heart failure, recurrent mechanical fall at home, probable neuropathy, previous colon polyps, morbid obesity with worsening performance status, significant lumbosacral degeneration with chronic L1 fracture, chronic low back pain, chronic anemia, chronic lower extremity edema, morbid obesity with obstructive sleep apnea history not on CPAP regularly now has * Acute diastolic heart failure with acute hypoxemic respiratory failure on noninvasive ventilation. This is compounded by worsening renal failure now s/ p dilaysis yesterday * Worsening of acute resp failure after dialysis was started, RUle out Acute lung injury with pro inflammatory response vs SIg htn causing pulm edema * Sig HTN * Severe diastolic disease with high LVEDP with mitral stenosis which is compounding the issue * Morbid obesity with NITHIN * Anemia of chronic disease which is now made worse by renal failure / Need transfusion * Significant back pain and gait instability with recent fall aswell rule out significant neuropathy probably from diabetes, compounded by significant degenerative joint and disc disease in the lumbosacral area with L5 nerve root involvement in the left with right foraminal stenosis. * Aneurysmal of abd aorta * Hypertension, hyperlipidemia, diabetes relatively stable at this time * Chronic venous insufficiency with lower extremity edema * Chronic esbl colonization of the bladder with no active evidence of sepsis at this time. PT does have leukocytosis with bandemia after dialysis, no fever dysuria etc PLAN COnt bipap Change qd drugs for HTN to night time (like amlodapine etc) REnal to address prob acute inflammatory response with dyspnea during dialysis Cont bipap prn COnt statin and other drugs ASA Urint culture and ua Po ppi for now Pt is critically ill 40 mins
--- NOTE | 2018-06-30 10:08 | RADIOLOGY REPORT ---
EXAMINATION: XR PORTABLE CHEST CLINICAL INFORMATION: High blood pleasure/pulmonary edema acute shortness of breath. Desaturating increased work of breathing. COMPARISON: No prior examinations including most recent chest x-ray 06/29/2018 at 12:20 PM TECHNIQUE: Portable frontal view of the chest was obtained. FINDINGS: Persistent bilateral hazy opacification of both lungs. This may be in part related to layering pleural effusions left greater than right. The density is slightly more prominent than on the most recent examination although be artifactual related to slight differences in technique. The cardiac silhouette remains prominent but unchanged. A central venous catheter appears to have been removed no longer identified. IMPRESSION: Findings consistent with pulmonary edema and pleural effusions probably not significantly changed compared to prior.
--- NOTE | 2018-06-30 11:33 | PN- Cardiology ---
Subjective Subjective: Patient is currently undergoing dialysis. Appears comfortable on BiPAP. Objective Vital Signs and I&Os Vital Signs Date Time Temp Pulse Resp B/P B/P Pulse O2 O2 Flow FiO2 Mean Ox Delivery Rate 06/30 1116 176/70 06/30 0950 199/90 06/30 0950 199/90 06/30 0950 199/90 06/30 0854 72 93 06/30 0800 97.9 70 20 196/88 96 BIPAP 40% 06/30 0800 96 BIPAP 40% 06/30 0550 64 95 06/30 0400 95 BIPAP 40% 06/30 0317 61 96 06/30 0023 62 95 06/30 0000 97 BIPAP 40% 06/30 0000 98.5 59 20 150/90 97 BIPAP 40% 06/29 2219 62 93 06/29 2219 94 Nasal 3.0L Cannula 06/29 2032 67 21 167/83 06/29 2031 65 21 167/83 06/29 2000 97.5 65 21 167/83 94 Nasal 3.0L Cannula 06/29 1616 62 157/67 06/29 1600 97.7 84 22 140/64 93 Nasal 3.0L Cannula 06/29 1600 93 Nasal 3.0L Cannula 06/29 1351 174/74 06/29 1301 95 06/29 1205 64 170/70 06/29 1205 170/70 06/29 1204 176/73 06/29 1200 97 Nasal 4.0L Cannula Intake & Output 06/30 1600 06/30 0800 06/30 0000 06/29 1600 06/29 0800 06/29 0000 Intake Total 100 570 490 100 200 Output Total 584 571 7480 600 2700 Balance -100 370 -1610 -500 -2500 Intake, Blood 50 Product Intake, Oral 100 570 440 100 200 Number 0 Bowel Movements Output, 2000 2500 Dialysate Output, Urine 200 200 100 600 200 Patient 185 lb 189 lb 199 lb 205 lb Weight Weight Bed scale Bed scale Bed scale Bed scale Measurement Method Physical Exam: General: no apparent distress. Alert. On BiPAP Eyes: No obvious scleral icterus. HEENT: No jugular venous distention or abnormal jugular venous pulsations. Cardiovascular: Normal intensity S1/S2. Regular Respiratory: Mildly decreased air entry bilaterally Abdomen: Soft, nontender with no guarding or rebound tenderness. Musculoskeletal: No clubbing or cyanosis noted Skin: warm Neurologic: No gross focal deficits noted. Current Medications: Current Medications Sig/Duong Start time Last Medication Dose Route Stop Time Status Admin Acetaminophen 650 MG Q6P PRN 06/28 1245 AC PO Acetaminophen 1,000 MG Q6P PRN 06/28 1245 AC IV Albuterol Sulfate 3 ML Q4P PRN 06/28 1515 AC 06/30 INH 0855 Amlodipine Besylate 10 MG DAILY 06/29 0900 AC 06/30 PO 1116 Aspirin 81 MG DAILY 06/29 0900 AC 06/30 PO 1115 Atorvastatin Calcium 40 MG DAILY 06/29 0900 AC 06/30 PO 1116 Doxazosin Mesylate 4 MG DAILY 06/29 0900 AC 06/30 PO 1115 Epoetin Ld 6,000 UNIT MoWeFr 06/30 0933 DC IV Fish Oil 1,050 MG DAILY 06/28 1228 AC 06/30 PO 1116 Heparin Sodium 5,000 UNIT Q8 06/28 1400 AC 06/30 (Porcine) SC 0619 Hydralazine HCl 100 MG TID 06/28 1400 AC 06/30 PO 0950 Isosorbide 90 MG DAILY 06/28 1226 AC 06/30 Mononitrate PO 0950 Labetalol HCl 300 MG BID 06/28 2100 AC 06/30 PO 0950 Morphine Sulfate 0 .STK-MED ONE 06/30 09 DC .ROUTE Morphine Sulfate 2 MG ONCE ONE 06/30 0900 DC 06/30 IV 06/30 0901 0902 Multivitamins 1 TAB DAILY 06/29 0900 AC 06/30 Therapeutic PO 1117 Nitroglycerin 0.5 GM ONCE ONE 06/30 0930 DC 06/30 TOP 06/30 0931 0929 Nitroglycerin 0 .STK-MED ONE 06/30 0929 DC TOP Nystatin 1 FUENTES BID 06/29 2100 AC 06/30 TOP 1118 Omeprazole 40 MG DAILY AC 06/28 1436 AC 06/30 PO 0619 Potassium Chloride 20 MEQ ONCE ONE 06/29 1500 CAN PO 06/29 1501 Sevelamer Carbonate 800 MG WM 06/28 1700 AC 06/30 PO 1117 Trimethobenzamide HCl 200 MG ONCE ONE 06/30 0900 DC 06/30 IM 06/30 0901 0857 Trimethobenzamide HCl 0 .STK-MED ONE 06/30 0857 DC IM Results Last 48 Hrs of Labs/Mics: Laboratory Tests 06/30/18 0916: pH 7.42, pCO2 41, pO2 64 L, HCO3 26, ABG O2 Sat (Measured) 93.0 L, P-50 (Temp Corrected) N, Carboxyhemoglobin 0.2 L, O2 Concentration % 50%, Respiration Rate 18, O2 Delivery Method BIPAP, Vent Mode ST, Expiratory Pressure 6, Inspiratory Pressure 16, Phlebotomy Draw Site RIGHT RADIAL 06/30/18 0910: Troponin I 0.09 06/30/18 0415: Anion Gap 9, Estimated GFR 15 L, Glucose 89, Calcium 8.7, Phosphorus 2.7, Magnesium 2.1, Total Bilirubin 0.6, AST 16, ALT 24, Albumin 3.4 L, CBC w Diff NO MAN DIFF REQ, RBC 2.44 L, MCV 93.0, MCH 30.2, MCHC 32.5 L, RDW 15.8 H, MPV 9.9, Gran % 91.2 H, Lymphocytes % 5.4 L, Monocytes % 2.9, Eosinophils % 0.3, Basophils % 0.2, Absolute Granulocytes 20.4 H, Absolute Lymphocytes 1.2, Absolute Monocytes 0.7 H, Absolute Eosinophils 0.1, Absolute Basophils 0 06/29/180: Urinalysis LIGHT H, Urine Color YEL, Urine Clarity CLDY H, Urine pH 6.0, Ur Specific [place] 1.025, Urine Protein 100 H, Urine Ketones NEG, Urine Nitrite NEG, Urine Bilirubin NEG, Urine Urobilinogen 0.2, Ur Leukocyte Esterase LARGE H , Ur Microscopic SEDIMENT EXAMINED, Urine RBC RARE, Urine WBC 50-75 H, Ur Epithelial Cells MANY H, Urine Bacteria PACKD H, Urine Mucus FEW, Urine Hemoglobin NEG, Urine Glucose NEG 06/29/18 1817: Anion Gap 7, Estimated GFR 17 L, Glucose 120 H, Calcium 8.8, Phosphorus 2.8, Magnesium 2.0, Total Bilirubin 0.4, AST 14, ALT 19, Albumin 3.4 L, CBC w Diff MAN DIFF ORDERED, RBC 2.45 L, MCV 91.8, MCH 29.7, MCHC 32.3 L, RDW 15.8 H, MPV 10.6 H, Gran % 92.9 H, Lymphocytes % 3.8 L, Monocytes % 3.2, Eosinophils % 0, Basophils % 0.1, Absolute Granulocytes 24.1 H, Segmented Neutrophils 91 H , Band Neutrophils 2, Absolute Lymphocytes 1.0 L, Lymphocytes 6 L, Monocytes 1 L, Absolute Monocytes 0.8 H, Absolute Eosinophils 0, Absolute Basophils 0, Platelet Estimate ADEQUATE, Hypochromic-Microcytic 2+, Basophilic Stippling RARE , Anisocytosis 1+, Stomatocytes RARE 06/29/18 0330: Anion Gap 13, Estimated GFR 10 L, Glucose 114 H, Calcium 8.7, Phosphorus 4.5, Magnesium 2.2, Total Bilirubin 0.6, AST 15, ALT 21, Albumin 3.6, CBC w Diff MAN DIFF ORDERED, RBC 2.49 L, MCV 92.3, MCH 29.9, MCHC 32.4 L, RDW 15.4 H, MPV 9.8, Gran % 94.9 H, Lymphocytes % 1.7 L, Monocytes % 3.4, Eosinophils % 0, Basophils % 0, Absolute Granulocytes 28.0 H, Segmented Neutrophils 80 H, Band Neutrophils 13 H, Absolute Lymphocytes 0.5 L, Lymphocytes 3 L, Monocytes 3, Absolute Monocytes 1.0 H, Absolute Eosinophils 0, Absolute Basophils 0, Metamyelocytes 1, Platelet Estimate ADEQUATE, Polychromasia 1+, Hypochromic- Microcytic 1+, Anisocytosis 1+, Schistocytes 1+ 06/28/18 2105: Troponin I 0.04 06/28/18 1515: Troponin I 0.05 06/28/18 1350: Hep Bs Antigen NONREACTIVE, Hep Bs Antibody NONREACTIVE Microbiology 06/28 1400 UPPER RESP: Surveillance Culture - COMP 06/28 1400 GI: Surveillance Culture - COMP Recent Imaging Studies: Telemetry tracings were personally reviewed and shows sinus rhythm with intermittent PACs and PVCs Chest x-ray Findings consistent with pulmonary edema and pleural effusions probably not significantly changed compared to prior. Assessment/Plan Assessment/Plan 1. Acute on chronic diastolic heart failure with hypoxemic respiratory failure requiring BiPAP EF 65% 2. Chronic kidney disease stage V now requiring dialysis 3. Hypertension 4. Morbid obesity 5. Anemia of chronic disease 6. Chronic venous insufficiency 7. Sleep apnea 8. History of mild aortic dilatation Patient appears comfortable on BiPAP this morning. She is again undergoing dialysis. If blood pressure continues to be elevated we may need to consider restarting the minoxidil which we had started during her last hospitalization. Eder Hager MD [facility] Continue telemetry? Yes
[2018-06-30 16:00] VITALS: BP 142/60
--- NOTE | 2018-06-30 16:11 | ULTRASOUND REPORT ---
Examination: Ultrasound venous mapping Doppler INDICATION: 77-year-old female with chronic kidney disease. Upper extremity vein mapping requested for fistula planning. COMPARISON: No similar prior examinations available for comparison. TECHNIQUE: Grayscale, color and spectral Doppler imaging was obtained of the bilateral upper extremity venous system. FINDINGS: RIGHT UPPER EXTREMITY: The right internal jugular vein, subclavian vein and axillary vein demonstrate normal color Doppler flow suggesting patency. The right brachial vein demonstrates normal compressibility and color Doppler flow consistent with patency. The right basilic vein is easily compressible and demonstrates normal color flow consistent with patency. The right basilic vein measures 0.7 cm in the proximal upper arm and tapers to 0.4 cm and the proximal lower arm. There is an approximately 4.6 cm length of the basilic vein where its diameter is above 4 mm. The right cephalic vein is patent from the proximal upper arm to the mid lower arm. There is a short segment echogenic focus most consistent with nonocclusive thrombus within the cephalic vein in the region of the antecubital fossa. The cephalic vein diameter averages approximately 0.6 cm. The right brachial, radial and ulnar arteries are patent and demonstrate normal waveforms. No plaque appreciated. Evaluation of the distal right forearm was limited secondary to IV placement. LEFT UPPER EXTREMITY: The left internal jugular vein, subclavian vein and axillary vein demonstrate normal color Doppler flow suggesting patency. There is a duplicated left brachial vein. Both brachial veins are easily compressible and demonstrate normal color flow suggesting patency. The left basilic vein is easily compressible and demonstrates normal color flow consistent with patency. The left basilic vein measures 0.7 cm in the proximal upper arm and tapers to 0.4 cm in the proximal lower arm. There is an approximately 4.7 cm length of the basilic vein where its diameter is above 4 mm. The left cephalic vein is patent from the proximal upper arm to the wrist. The cephalic vein measures approximately 0.7 cm in diameter in the upper arm and tapers to 0.3 cm at the level of the wrist. The left brachial, radial and ulnar arteries are patent and demonstrate normal waveforms. No plaque appreciated. IMPRESSION: 1. Deep venous system of the bilateral lower extremities are patent with the exception of a short segment nonocclusive thrombus within the right cephalic vein in the region of the antecubital fossa. Diameters and measurements are included above. Evaluation of the distal right forearm was limited secondary to IV placement. 2. Unremarkable brachial, radial and ulnar arteries bilaterally.
[2018-07-01] VITALS: BP 164/80
[2018-07-01 05:08] LABS: RED BLOOD CELL CT 2.42 /CUMM (4.20-5.40); WHITE BLOOD CELL COUNT 17.8 /CUMM (4.8-10.8)
[2018-07-01 05:09] LABS: ABSOLUTE BASOPHIL COUNT 0 /CUMM (0.0-0.2); ABSOLUTE EOSINOPHIL COUNT 0.2 /CUMM (0.0-0.7); ABSOLUTE GRANULOCYTE CT 15.5 /CUMM (1.4-6.5); ABSOLUTE LYMPH COUNT 1.2 /CUMM (1.2-3.4); ABSOLUTE MONOCYTE COUNT 0.8 /CUMM (0.10-0.60); BASOPHIL % 0.2 % (0.0-2.0); EOSINOPHIL % 1.3 % (0-5); HEMATOCRIT 22.6 % (37-47); MEAN CORPUSCULAR HGB 30.2 PG (27.0-31.0); MEAN CORPUSCULAR HGB CONC 32.3 G/DL (33.0-37.0); MEAN CORPUSCULAR VOLUME 93.3 FL (81.0-99.0); MEAN PLATELET VOLUME 10.3 FL (7.4-10.4); PLATELET COUNT 187 /CUMM (130-400); RBC DISTRIBUTION WIDTH 15.3 % (11.5-14.5)
[2018-07-01 05:33] LABS: GRANULOCYTE % 87.2 % (42.2-75.2)
--- NOTE | 2018-07-01 07:11 | PN- Resident CRCU ---
Subjective HPI/CRCU Issues: #Acute hypoxemic respiratory failure #Acute diastolic failure #Mitral stenosis #Morbid obesity with obstructive sleep apnea #CKD stage V #Anemia of chronic disease #Chronic ESBL colonization of bladder #Hypertension, hyperlipidemia, diabetes, chronic venous insufficiency with lower extremity edema 24 Hour Events: No acute events overnight. Afebrile. Maintained on BiPAP. Blood pressure running 180s-140/90s-80s Urine culture growing gram-negative rods patient has chronic ESBL colonization H/H remained stable. White cell count improving. No bands. No obvious source of infection. Denies sputum, abdominal pain, urinary symptoms. Does not report fever or chills. Lines do not look infected. Evaluated later. Patient was sitting in the chair on high flow. Appears to be comfortable. Does not offer any complaints. Reports improvement in her symptoms. Objective Vital Signs & I&O Last 8 Hrs of Vitals and I&O: Laboratory Tests 07/01 0350 Chemistry Sodium (137 - 145 mmol/L) 140 Potassium (3.5 - 5.1 mmol/L) 3.5 Chloride (98 - 107 mmol/L) 106 Carbon Dioxide (22 - 30 mmol/L) 28 Anion Gap (5 - 16) 6 BUN (7 - 17 mg/dL) 25 H Creatinine (0.5 - 1.0 mg/dL) 2.3 H Estimated GFR (>60 ml/min) 21 L Glucose (65 - 99 mg/dL) 92 Calcium (8.4 - 10.2 mg/dL) 8.8 Phosphorus (2.5 - 4.5 mg/dL) 2.1 L Magnesium (1.6 - 2.3 mg/dL) 2.1 Total Bilirubin (0.2 - 1.3 mg/dL) 0.7 AST (14 - 36 U/L) 14 ALT (9 - 52 U/L) 22 Albumin (3.5 - 5.0 g/dL) 3.4 L Hematology CBC w Diff NO MAN DIFF REQ WBC (4.8 - 10.8 /CUMM) 17.8 H RBC (4.20 - 5.40 /CUMM) 2.42 L Hgb (12.0 - 16.0 G/DL) 7.3 *L Hct (37 - 47 %) 22.6 L MCV (81.0 - 99.0 FL) 93.3 MCH (27.0 - 31.0 PG) 30.2 MCHC (33.0 - 37.0 G/DL) 32.3 L RDW (11.5 - 14.5 %) 15.3 H Plt Count (130 - 400 /CUMM) 187 MPV (7.4 - 10.4 FL) 10.3 Gran % (42.2 - 75.2 %) 87.2 H Lymphocytes % (20.5 - 51.1 %) 6.7 L Monocytes % (1.7 - 9.3 %) 4.6 Eosinophils % (0 - 5 %) 1.3 Basophils % (0.0 - 2.0 %) 0.2 Absolute Granulocytes (1.4 - 6.5 /CUMM) 15.5 H Absolute Lymphocytes (1.2 - 3.4 /CUMM) 1.2 Absolute Monocytes (0.10 - 0.60 /CUMM) 0.8 H Absolute Eosinophils (0.0 - 0.7 /CUMM) 0.2 Absolute Basophils (0.0 - 0.2 /CUMM) 0 Vital Signs Date Time Temp Pulse Resp B/P B/P Pulse O2 O2 Flow FiO2 Mean Ox Delivery Rate 07/01 0908 95 Nasal 40% Cannula 07/01 0907 86 98 07/01 0823 60 189/80 07/01 0823 60 180/80 07/01 0646 58 20 187/80 07/01 0543 58 95 07/01 0400 96 BIPAP 40% 07/01 0332 61 96 07/01 0058 59 93 07/01 0000 96 BIPAP 40% 07/01 0000 98.8 57 18 164/80 96 BIPAP 40% 06/30 2212 57 96 06/30 2126 65 159/74 06/30 2126 65 159/74 06/30 2000 50 Nasal 50% Cannula 06/30 1942 95 Nasal 50% Cannula 06/30 1704 94 Nasal 50% Cannula 06/30 1600 94 Nasal 50% Cannula 06/30 1600 98.5 64 22 142/60 94 Nasal 50% Cannula 06/30 1426 164/62 06/30 1200 02 Nasal 4.0L Cannula 06/30 1129 61 98 06/30 1116 176/70 06/30 0950 199/90 06/30 0950 199/90 06/30 0950 19990 Intake & Output 07/01 1600 07/01 0800 07/01 0000 Intake Total 100 340 Output Total 200 100 Balance -100 240 Intake, IV 20 Intake, Oral 100 320 Output, Urine 200 100 Patient 117 lb Weight Weight Bed scale Measurement Method Exam General Appearance: alert, awake Head: atraumatic Respiratory: decreased breath sounds Cardiovascular: regular rate/rhythm Gastrointestinal: normal bowel sounds, soft Extremities: +1 edema Current Medications: Current Medications Sig/Duong Start time Last Medication Dose Route Stop Time Status Admin Acetaminophen 650 MG Q6P PRN 06/28 1245 AC 06/30 PO 1423 Acetaminophen 1,000 MG Q6P PRN 06/28 1245 AC IV Albuterol Sulfate 3 ML Q4P PRN 06/28 1515 AC 06/30 INH 0855 Amlodipine Besylate 10 MG 1700 07/01 1700 AC PO Amlodipine Besylate 10 MG DAILY 06/29 0900 DC 06/30 PO 1116 Aspirin 81 MG DAILY 06/29 0900 AC 07/01 PO 0824 Atorvastatin Calcium 40 MG DAILY 06/29 0900 AC 07/01 PO 0823 Doxazosin Mesylate 4 MG 1700 07/01 1700 AC PO Doxazosin Mesylate 4 MG DAILY 06/29 0900 DC 06/30 PO 07/01 0900 1115 Fish Oil 1,050 MG DAILY 06/28 1228 AC 07/01 PO 0823 Heparin Sodium 5,000 UNIT Q8 06/28 1400 AC 07/01 (Porcine) SC 0644 Hydralazine HCl 100 MG Q8 06/30 1400 AC 07/01 PO 0646 Hydralazine HCl 100 MG TID 06/28 1400 DC 06/30 PO 0950 Isosorbide 90 MG DAILY 06/28 1226 AC 07/01 Mononitrate PO 0823 Labetalol HCl 300 MG BID 06/28 2100 AC 07/01 PO 0823 Multivitamins 1 TAB DAILY 06/29 0900 AC 07/01 Therapeutic PO 0823 Nystatin 1 FUENTES BID 06/29 2100 AC 07/01 TOP 0824 Omeprazole 40 MG DAILY AC 06/28 1436 AC 07/01 PO 0645 Sevelamer Carbonate 800 MG WM 06/28 1700 AC 07/01 PO 0824 Impression/Plan Impression/Problem List Impression: The patient is 77-year-old female with past medical history of hypertension, hyperlipidemia, type 2 diabetes mellitus, chronic venous insufficiency, ESRD, anemia of chronic disease, congestive heart failure with preserved ejection fraction severe diastolic dysfunction, morbid obesity, obstructive sleep apnea, chronic back pain, lumbosacral disc degeneration with chronic L1 fracture, recurrent falls. She was brought in by ambulance with chief complaint of shortness of breath. She was initially admitted to telemetry floor later transferred to ICU in setting of acute need of dialysis. She is currently being treated and evaluated for following conditions #Acute hypoxemic respiratory failure in setting of acute exacerbation of HFpEF ( acute diastolic heart failure), compounded by worsening renal failure Vol overload and mitral stenosis Chest x-ray consistent with cardiomegaly and pulmonary edema consistent with congestive heart failure. ProBNP 94204. Recent echocardiogram on normal left ventricular size, EF of 60-65%, moderately increased left ventricular wall thickness month, diastolic heart failure and moderate pulmonary hypertension. Patient was initially discharged on June 10 on 40 mg, however recently the Lasix dosage has been increased to 40 mg twice a day, received additional 60 mg IV Lasix while at the emergency department along with topical nitrates. -Continue BiPAP PRN transitioned to high flow as tolerated -TRC and maintain oxygen saturation greater than 92% -Continue dialysis as per nephrology -Hold off Lasix -Continue to monitor intake/output -Daily weights -Monitor electrolytes and replete accordingly -Continue statin and aspirin # Hypertension She came in with pressure of 170/72, she has tendency to have high blood pressure and is on multiple medications to control high blood pressure including isosorbide mononitrate 90 mg once daily, labetalol 300 mg twice a day, Lasix 40 mg twice a day, hydralazine 100 mg 3 times a day, doxazosin 4 mg tablet once daily and amlodipine 10 mg once daily. She received 10 mg of Norvasc, 20 mg of IV hydralazine and 10 mg of IV labetalol Her home medication of minoxidil was recently discontinued by her outpatient copper plater, for not taking it anymore. -Continue to monitor blood pressure -We have changed to amlodipine and Cardura schedule to Pm so that patient does not become hypotensive in her medications and her in the a.m. for dialysis -had a detailed discussion with cardiology for resistant hypertension the plan is to proceed with renal artery ultrasound to rule out renal artery stenosis in consideration of flash pulmonary edema -Minoxidil can be added in his regimen, but before adding that patient should be tried on CONNIE inhibitor/ARB which could have been held previously because of kidney disease however since the patient is on dialysis there is no indication to hold it anymore. #Acute desaturation with shortness of breath Patient had 3 episodes of acute desaturation up with shortness of breath which happened with dialysis. It is possible that patient might have had an inflammatory reaction related with the basement membrane (acute lung injury). Reaction to dialyzer is less likely because she maintained her blood pressure which was towards the higher side. Chest x-ray did not show any acute pulmonary edema. EKG and troponins have been negative. -Continue to monitor -Dialysis adjustment as per nephrology -No more episodes today patient did not get dialyzed. #Probable transfusion reaction Patient became acutely short of breath after starting the transfusion within 10 minutes on 06/29. She was getting dialyzed at that point she was on nasal cannula at that point. He started desaturating up to 80 patient was immediately started on BiPAP and her oxygen saturation came right back up in greater than 95 %. Patient was afebrile. Blood transfusion was stopped. Blood has been sent for transfusion reaction will follow up the results. Patient had a similar episode again on 06/30 without any blood transfusion so it might not have been a transfusion reaction to begin with. #PATO on CKD - 4 likely secondary to hypertension and diabetes Patient underwent temporary catheter placement on the day of admission and will be maintained on dialysis -Continue dialysis as per nephrology #Anemia of chronic disease in setting of CKD -Guaiac all stools. -Epogen 6000 units 3 times a week -ct to monitor, H/H stable. no transfusion done. -We will plan for transfusion tomorrow #Leukocytosis and bandemia Bands disappeared. Leukocytosis improving. Patient remains afebrile. She is not on any steroids. This all can be secondary to inflammatory response secondary to the basement membrane while being on dialysis. -Continue to monitor -Monitor off antibiotics discussed with Dr. Vang # HLD -ct Crestor #Chronic lower extremtiy edema Chronic edema is secondary to a combination of chronic venous insufficiency along with diastolic dysfunction, she says that her edema has been better after recent increase in Lasix dosage. -Do not suspect any DVT as this is her baseline edema and there is no acute change. -Continue diuresis per cardio. #Obstructive sleep apnea -Maintain on BiPAP FC/heparin dvt px Problem List: 1. (HFpEF) heart failure with preserved ejection fraction Pain Ratin Tomorrow's Labs & Rationales: cbc icu bundle Plan DVT/Prophylaxis: mechanical, pharmacological
[2018-07-01 08:00] VITALS: BP 180/80
--- NOTE | 2018-07-01 09:08 | PN- Cardiology ---
Subjective Subjective: Telemetry reviewed. Sinus rhythm throughout. Patient out of bed in a chair. Objective Vital Signs and I&Os Vital Signs Date Time Temp Pulse Resp B/P B/P Pulse O2 O2 Flow FiO2 Mean Ox Delivery Rate 07/01 0823 60 189/80 07/01 0823 60 180/80 07/01 0646 58 20 187/80 07/01 0543 58 95 07/01 0400 96 BIPAP 40% 07/01 0332 61 96 07/01 0058 59 93 07/01 0000 96 BIPAP 40% 07/01 0000 98.8 57 18 164/80 96 BIPAP 40% 06/30 2212 57 96 06/30 2126 65 159/74 06/30 2126 65 159/74 06/30 2000 50 Nasal 50% Cannula 06/30 1942 95 Nasal 50% Cannula 06/30 1704 94 Nasal 50% Cannula 06/30 1600 94 Nasal 50% Cannula 06/30 1600 98.5 64 22 142/60 94 Nasal 50% Cannula 06/30 1426 164/62 06/30 1200 02 Nasal 4.0L Cannula 06/30 1129 61 98 06/30 1116 176/70 06/30 0950 199/90 06/30 0950 199/90 06/30 0950 199/90 Intake & Output 07/01 1600 07/01 0800 07/01 0000 06/30 1600 06/30 0800 06/30 0000 Intake Total 100 340 240 100 570 Output Total 318 245 7878 200 200 Balance -100 240 -1910 -100 370 Intake, IV 20 20 Intake, Oral 100 320 220 100 570 Number 0 Bowel Movements Output, 2000 Dialysate Output, Urine 200 100 150 200 200 Patient 117 lb 185 lb 189 lb Weight Weight Bed scale Bed scale Bed scale Measurement Method Physical Exam: On physical exam patient appeared comfortable although with the CPAP mask. Head normocephalic atraumatic Eyes sclera anicteric conjunctiva showed pallor. Neck mild jugular venous tension no thyroid masses no palpable nodes no definite carotid bruit Chest lungs few scattered wheezes bilaterally Heart regular rhythm with a prominent S4 and a 1/6 to 2/6 systolic murmur Abdomen soft no organomegaly bowel sounds normal Extremities no edema, no clubbing or cyanosis Neurological no gross motor or sensory deficits Current Medications: Current Medications Sig/Duong Start time Last Medication Dose Route Stop Time Status Admin Acetaminophen 650 MG Q6P PRN 06/28 1245 AC 06/30 PO 1423 Acetaminophen 1,000 MG Q6P PRN 06/28 1245 AC IV Albuterol Sulfate 3 ML Q4P PRN 06/28 1515 AC 06/30 INH 0855 Amlodipine Besylate 10 MG 1700 07/01 1700 AC PO Amlodipine Besylate 10 MG DAILY 06/29 0900 DC 06/30 PO 1116 Aspirin 81 MG DAILY 06/29 0900 AC 07/01 PO 0824 Atorvastatin Calcium 40 MG DAILY 06/29 0900 AC 07/01 PO 0823 Doxazosin Mesylate 4 MG 1700 07/01 1700 AC PO Doxazosin Mesylate 4 MG DAILY 06/29 0900 DC 06/30 PO 07/01 0900 1115 Epoetin Ld 6,000 UNIT MoWeFr 06/30 0933 DC IV Fish Oil 1,050 MG DAILY 06/28 1228 AC 07/01 PO 0823 Heparin Sodium 5,000 UNIT Q8 06/28 1400 AC 07/01 (Porcine) SC 0644 Hydralazine HCl 100 MG Q8 06/30 1400 AC 07/01 PO 0646 Hydralazine HCl 100 MG TID 06/28 1400 DC 06/30 PO 0950 Isosorbide 90 MG DAILY 06/28 1226 AC 07/01 Mononitrate PO 0823 Labetalol HCl 300 MG BID 06/28 2100 AC 07/01 PO 0823 Multivitamins 1 TAB DAILY 06/29 0900 AC 07/01 Therapeutic PO 0823 Nitroglycerin 0.5 GM ONCE ONE 06/30 0930 DC 06/30 TOP 06/30 0931 0929 Nitroglycerin 0 .STK-MED ONE 06/30 0929 AZ TOP Nystatin 1 FUENTES BID 06/29 2100 AC 07/01 TOP 0824 Omeprazole 40 MG DAILY AC 06/28 1436 AC 07/01 PO 0645 Sevelamer Carbonate 800 MG WM 06/28 1700 AC 07/01 PO 0824 Results Last 48 Hrs of Labs/Mics: Laboratory Tests 07/01/18 0350: Anion Gap 6, Estimated GFR 21 L, Glucose 92, Calcium 8.8, Phosphorus 2.1 L, Magnesium 2.1, Total Bilirubin 0.7, AST 14, ALT 22, Albumin 3.4 L, CBC w Diff NO MAN DIFF REQ, RBC 2.42 L, MCV 93.3, MCH 30.2, MCHC 32.3 L, RDW 15.3 H, MPV 10.3, Gran % 87.2 H, Lymphocytes % 6.7 L, Monocytes % 4.6, Eosinophils % 1.3, Basophils % 0.2, Absolute Granulocytes 15.5 H, Absolute Lymphocytes 1.2, Absolute Monocytes 0.8 H, Absolute Eosinophils 0.2, Absolute Basophils 0 06/30/18 0916: pH 7.42, pCO2 41, pO2 64 L, HCO3 26, ABG O2 Sat (Measured) 93.0 L, P-50 (Temp Corrected) N, Carboxyhemoglobin 0.2 L, O2 Concentration % 50%, Respiration Rate 18, O2 Delivery Method BIPAP, Vent Mode ST, Expiratory Pressure 6, Inspiratory Pressure 16, Phlebotomy Draw Site RIGHT RADIAL 06/30/18 0910: Troponin I 0.09 06/30/18 0415: Anion Gap 9, Estimated GFR 15 L, Glucose 89, Calcium 8.7, Phosphorus 2.7, Magnesium 2.1, Total Bilirubin 0.6, AST 16, ALT 24, Albumin 3.4 L, CBC w Diff NO MAN DIFF REQ, RBC 2.44 L, MCV 93.0, MCH 30.2, MCHC 32.5 L, RDW 15.8 H, MPV 9.9, Gran % 91.2 H, Lymphocytes % 5.4 L, Monocytes % 2.9, Eosinophils % 0.3, Basophils % 0.2, Absolute Granulocytes 20.4 H, Absolute Lymphocytes 1.2, Absolute Monocytes 0.7 H, Absolute Eosinophils 0.1, Absolute Basophils 0 06/29/180: Urinalysis LIGHT H, Urine Color YEL, Urine Clarity CLDY H, Urine pH 6.0, Ur Specific Burchard 1.025, Urine Protein 100 H, Urine Ketones NEG, Urine Nitrite NEG, Urine Bilirubin NEG, Urine Urobilinogen 0.2, Ur Leukocyte Esterase LARGE H , Ur Microscopic SEDIMENT EXAMINED, Urine RBC RARE, Urine WBC 50-75 H, Ur Epithelial Cells MANY H, Urine Bacteria PACKD H, Urine Mucus FEW, Urine Hemoglobin NEG, Urine Glucose NEG 06/29/18 1817: Anion Gap 7, Estimated GFR 17 L, Glucose 120 H, Calcium 8.8, Phosphorus 2.8, Magnesium 2.0, Total Bilirubin 0.4, AST 14, ALT 19, Albumin 3.4 L, CBC w Diff MAN DIFF ORDERED, RBC 2.45 L, MCV 91.8, MCH 29.7, MCHC 32.3 L, RDW 15.8 H, MPV 10.6 H, Gran % 92.9 H, Lymphocytes % 3.8 L, Monocytes % 3.2, Eosinophils % 0, Basophils % 0.1, Absolute Granulocytes 24.1 H, Segmented Neutrophils 91 H , Band Neutrophils 2, Absolute Lymphocytes 1.0 L, Lymphocytes 6 L, Monocytes 1 L, Absolute Monocytes 0.8 H, Absolute Eosinophils 0, Absolute Basophils 0, Platelet Estimate ADEQUATE, Hypochromic-Microcytic 2+, Basophilic Stippling RARE , Anisocytosis 1+, Stomatocytes RARE Assessment/Plan Assessment/Plan In summary this 77-year-old female has a following problems 1. Acute on chronic diastolic heart failure with hypoxemic respiratory failure requiring BiPAP EF 65% 2. Chronic kidney disease stage V now requiring dialysis 3. Hypertension 4. Morbid obesity 5. Anemia of chronic disease 6. Chronic venous insufficiency 7. Sleep apnea 8. History of mild aortic dilatation I discussed with house staff about the possibility of renal artery stenosis. She does have significant diastolic heart dysfunction but her uncontrolled hypertension is rather resistant to multiple medications. I suggested renal artery ultrasound. She continues to get dialysis. Minoxidil is a useful option for added antihypertensive treatment although it is somewhat surprising that her blood pressure is not controlled on multiple medications. Increase minoxidil was started I would suggest changing labetalol to metoprolol to blunt reflex tachycardia that can sometimes occur with minoxidil. Continue telemetry? Yes
--- NOTE | 2018-07-01 09:26 | PN- Nephrology ---
Assessment/Plan Nephrology Assessment: Better but still requiring oxygen. Exact nature of underlying lung disease unclear. BP still difficult to control. Suggestion: At this point, unless she has contrindication, I think she could be put on ACIE or ARB. I am not certain if she was on these in past but since she is permanently on dialysis I see no renal reason not to use these. Subjective Subjective: On high flow oxygen but seems comfortable. Objective Vital Signs and I&Os Vital Signs Date Time Temp Pulse Resp B/P B/P Pulse O2 O2 Flow FiO2 Mean Ox Delivery Rate 07/01 0908 95 Nasal 40% Cannula 07/01 0907 86 98 07/01 0823 60 189/80 07/01 0823 60 180/80 07/01 0646 58 20 187/80 07/01 0543 58 95 07/01 0400 96 BIPAP 40% 07/01 0332 61 96 07/01 0058 59 93 07/01 0000 96 BIPAP 40% 07/01 0000 98.8 57 18 164/80 96 BIPAP 40% 06/30 2212 57 96 06/30 2126 65 159/74 06/30 2126 65 159/74 06/30 2000 50 Nasal 50% Cannula 06/30 1942 95 Nasal 50% Cannula 06/30 1704 94 Nasal 50% Cannula 06/30 1600 94 Nasal 50% Cannula 06/30 1600 98.5 64 22 142/60 94 Nasal 50% Cannula 06/30 1426 164/62 06/30 1200 02 Nasal 4.0L Cannula 06/30 1129 61 98 06/30 1116 176/70 06/30 0950 199/90 06/30 0950 199/90 06/30 0950 199/90 Intake & Output 07/01 1600 07/01 0400 06/30 1600 06/30 0400 06/29 1600 06/29 0400 Intake Total 100 340 340 570 590 200 Output Total 551 108 6766 200 2700 2700 Balance -100 370 -2110 -2500 Intake, Blood 50 Product Intake, IV 20 20 Intake, Oral 100 320 320 570 540 200 Number 0 0 Bowel Movements Output, 1999 1999 2500 Dialysate Output, Urine 200 100 350 200 700 200 Patient 117 lb 185 lb 199 lb 205 lb Weight Weight Bed scale Bed scale Bed scale Bed scale Measurement Method Physical Exam: NAD VS as above Lungs: a few rhonchi CV: no rub Abd: non-tender Exts: no edema Neuro: A&O Current Medications: Current Medications Sig/Duong Start time Last Medication Dose Route Stop Time Status Admin Acetaminophen 650 MG Q6P PRN 06/28 1245 AC 06/30 PO 1423 Acetaminophen 1,000 MG Q6P PRN 06/28 1245 AC IV Albuterol Sulfate 3 ML Q4P PRN 06/28 1515 AC 06/30 INH 0855 Amlodipine Besylate 10 MG 1700 07/01 1700 AC PO Amlodipine Besylate 10 MG DAILY 06/29 0900 DC 06/30 PO 1116 Aspirin 81 MG DAILY 06/29 0900 AC 07/01 PO 0824 Atorvastatin Calcium 40 MG DAILY 06/29 0900 AC 07/01 PO 0823 Doxazosin Mesylate 4 MG 1700 07/01 1700 AC PO Doxazosin Mesylate 4 MG DAILY 06/29 0900 DC 06/30 PO 07/01 0900 1115 Epoetin Ld 6,000 UNIT MoWeFr 06/30 0933 DC IV Fish Oil 1,050 MG DAILY 06/28 1228 AC 07/01 PO 0823 Heparin Sodium 5,000 UNIT Q8 06/28 1400 AC 07/01 (Porcine) SC 0644 Hydralazine HCl 100 MG Q8 06/30 1400 AC 07/01 PO 0646 Hydralazine HCl 100 MG TID 06/28 1400 DC 06/30 PO 0950 Isosorbide 90 MG DAILY 06/28 1226 AC 07/01 Mononitrate PO 0823 Labetalol HCl 300 MG BID 06/28 2100 AC 07/01 PO 0823 Multivitamins 1 TAB DAILY 06/29 0900 AC 07/01 Therapeutic PO 0823 Nitroglycerin 0.5 GM ONCE ONE 06/30 0930 DC 06/30 TOP 06/30 0931 0929 Nitroglycerin 0 .STK-MED ONE 06/30 0929 DC TOP Nystatin 1 FUENTES BID 06/29 2100 AC 07/01 TOP 0824 Omeprazole 40 MG DAILY AC 06/28 1436 AC 07/01 PO 0645 Sevelamer Carbonate 800 MG WM 06/28 1700 AC 07/01 PO 0824 Results Pertinent Lab Results: Laboratory Tests 07/01 06/30 06/30 0350 0916 0910 Blood Gas pH (7.35 - 7.45 PH) 7.42 pCO2 (35 - 45 TORR) 41 pO2 (80 - 100 TORR) 64 L HCO3 (21 - 28 MEQ/L) 26 ABG O2 Sat (Measured) (>96.0 %) 93.0 L P-50 (Temp Corrected) N Carboxyhemoglobin (1.5 - 5.0 %) 0.2 L O2 Concentration % 50% Respiration Rate (BPM) 18 O2 Delivery Method BIPAP Vent Mode ST Expiratory Pressure (CM H2O P) 6 Inspiratory Pressure (CM H2O P) 16 Chemistry Sodium (137 - 145 mmol/L) 140 Potassium (3.5 - 5.1 mmol/L) 3.5 Chloride (98 - 107 mmol/L) 106 Carbon Dioxide (22 - 30 mmol/L) 28 Anion Gap (5 - 16) 6 BUN (7 - 17 mg/dL) 25 H Creatinine (0.5 - 1.0 mg/dL) 2.3 H Estimated GFR (>60 ml/min) 21 L Glucose (65 - 99 mg/dL) 92 Calcium (8.4 - 10.2 mg/dL) 8.8 Phosphorus (2.5 - 4.5 mg/dL) 2.1 L Magnesium (1.6 - 2.3 mg/dL) 2.1 Total Bilirubin (0.2 - 1.3 mg/dL) 0.7 AST (14 - 36 U/L) 14 ALT (9 - 52 U/L) 22 Troponin I (< 0.11 ng/ml) 0.09 Albumin (3.5 - 5.0 g/dL) 3.4 L Hematology CBC w Diff NO MAN DIFF REQ WBC (4.8 - 10.8 /CUMM) 17.8 H RBC (4.20 - 5.40 /CUMM) 2.42 L Hgb (12.0 - 16.0 G/DL) 7.3 *L Hct (37 - 47 %) 22.6 L MCV (81.0 - 99.0 FL) 93.3 MCH (27.0 - 31.0 PG) 30.2 MCHC (33.0 - 37.0 G/DL) 32.3 L RDW (11.5 - 14.5 %) 15.3 H Plt Count (130 - 400 /CUMM) 187 MPV (7.4 - 10.4 FL) 10.3 Gran % (42.2 - 75.2 %) 87.2 H Lymphocytes % (20.5 - 51.1 %) 6.7 L Monocytes % (1.7 - 9.3 %) 4.6 Eosinophils % (0 - 5 %) 1.3 Basophils % (0.0 - 2.0 %) 0.2 Absolute Granulocytes (1.4 - 6.5 /CUMM) 15.5 H Absolute Lymphocytes (1.2 - 3.4 /CUMM) 1.2 Absolute Monocytes (0.10 - 0.60 /CUMM) 0.8 H Absolute Eosinophils (0.0 - 0.7 /CUMM) 0.2 Absolute Basophils (0.0 - 0.2 /CUMM) 0 Miscellaneous Phlebotomy Draw Site RIGHT RADIAL 06/30 06/29 1758 0096 Chemistry Sodium (137 - 145 mmol/L) 141 Potassium (3.5 - 5.1 mmol/L) 3.6 Chloride (98 - 107 mmol/L) 106 Carbon Dioxide (22 - 30 mmol/L) 26 Anion Gap (5 - 16) 9 BUN (7 - 17 mg/dL) 45 H Creatinine (0.5 - 1.0 mg/dL) 3.1 H Estimated GFR (>60 ml/min) 15 L Glucose (65 - 99 mg/dL) 89 Calcium (8.4 - 10.2 mg/dL) 8.7 Phosphorus (2.5 - 4.5 mg/dL) 2.7 Magnesium (1.6 - 2.3 mg/dL) 2.1 Total Bilirubin (0.2 - 1.3 mg/dL) 0.6 AST (14 - 36 U/L) 16 ALT (9 - 52 U/L) 24 Albumin (3.5 - 5.0 g/dL) 3.4 L Hematology CBC w Diff NO MAN DIFF REQ WBC (4.8 - 10.8 /CUMM) 22.4 H RBC (4.20 - 5.40 /CUMM) 2.44 L Hgb (12.0 - 16.0 G/DL) 7.4 *L Hct (37 - 47 %) 22.7 L MCV (81.0 - 99.0 FL) 93.0 MCH (27.0 - 31.0 PG) 30.2 MCHC (33.0 - 37.0 G/DL) 32.5 L RDW (11.5 - 14.5 %) 15.8 H Plt Count (130 - 400 /CUMM) 162 MPV (7.4 - 10.4 FL) 9.9 Gran % (42.2 - 75.2 %) 91.2 H Lymphocytes % (20.5 - 51.1 %) 5.4 L Monocytes % (1.7 - 9.3 %) 2.9 Eosinophils % (0 - 5 %) 0.3 Basophils % (0.0 - 2.0 %) 0.2 Absolute Granulocytes (1.4 - 6.5 /CUMM) 20.4 H Absolute Lymphocytes (1.2 - 3.4 /CUMM) 1.2 Absolute Monocytes (0.10 - 0.60 /CUMM) 0.7 H Absolute Eosinophils (0.0 - 0.7 /CUMM) 0.1 Absolute Basophils (0.0 - 0.2 /CUMM) 0 Urines Urinalysis LIGHT H Urine Color (YEL,AMB,STR) YEL Urine Clarity (CLEAR) CLDY H Urine pH (5.0 - 8.0) 6.0 Ur Specific [place] (1.001 - 1.035) 1.025 Urine Protein (NEG,<30 MG/DL) 100 H Urine Ketones (NEG) NEG Urine Nitrite (NEG) NEG Urine Bilirubin (NEG) NEG Urine Urobilinogen (0.1 - 1.0 EU/dl) 0.2 Ur Leukocyte Esterase (NEG) LARGE H Ur Microscopic SEDIMENT EXAMINED Urine RBC (0 - 5 /HPF) RARE Urine WBC (0 - 2 /HPF) 50-75 H Ur Epithelial Cells (NONE,FEW) MANY H Urine Bacteria (NEG/NONE) PACKD H Urine Mucus (FEW,NONE) FEW Urine Hemoglobin (NEG) NEG Urine Glucose (N MG/DL) NEG 06/29 06/29 1817 0330 Chemistry Sodium (137 - 145 mmol/L) 139 144 Potassium (3.5 - 5.1 mmol/L) 3.5 3.5 Chloride (98 - 107 mmol/L) 106 109 H Carbon Dioxide (22 - 30 mmol/L) 27 22 Anion Gap (5 - 16) 7 13 BUN (7 - 17 mg/dL) 37 H 60 H Creatinine (0.5 - 1.0 mg/dL) 2.7 H 4.4 H Estimated GFR (>60 ml/min) 17 L 10 L Glucose (65 - 99 mg/dL) 120 H 114 H Calcium (8.4 - 10.2 mg/dL) 8.8 8.7 Phosphorus (2.5 - 4.5 mg/dL) 2.8 4.5 Magnesium (1.6 - 2.3 mg/dL) 2.0 2.2 Total Bilirubin (0.2 - 1.3 mg/dL) 0.4 0.6 AST (14 - 36 U/L) 14 15 ALT (9 - 52 U/L) 19 21 Albumin (3.5 - 5.0 g/dL) 3.4 L 3.6 Hematology CBC w Diff MAN DIFF ORDERED MAN DIFF ORDERED WBC (4.8 - 10.8 /CUMM) 25.9 H 29.5 H RBC (4.20 - 5.40 /CUMM) 2.45 L 2.49 L Hgb (12.0 - 16.0 G/DL) 7.3 *L 7.4 *L Hct (37 - 47 %) 22.5 L 23.0 L MCV (81.0 - 99.0 FL) 91.8 92.3 MCH (27.0 - 31.0 PG) 29.7 29.9 MCHC (33.0 - 37.0 G/DL) 32.3 L 32.4 L RDW (11.5 - 14.5 %) 15.8 H 15.4 H Plt Count (130 - 400 /CUMM) 193 184 MPV (7.4 - 10.4 FL) 10.6 H 9.8 Gran % (42.2 - 75.2 %) 92.9 H 94.9 H Lymphocytes % (20.5 - 51.1 %) 3.8 L 1.7 L Monocytes % (1.7 - 9.3 %) 3.2 3.4 Eosinophils % (0 - 5 %) 0 0 Basophils % (0.0 - 2.0 %) 0.1 0 Absolute Granulocytes (1.4 - 6.5 /CUMM) 24.1 H 28.0 H Segmented Neutrophils (42.2 - 75.2 %) 91 H 80 H Band Neutrophils (0.0 - 5.0 %) 2 13 H Absolute Lymphocytes (1.2 - 3.4 /CUMM) 1.0 L 0.5 L Lymphocytes (20.5 - 51.1 %) 6 L 3 L Monocytes (1.7 - 9.3 %) 1 L 3 Absolute Monocytes (0.10 - 0.60 /CUMM) 0.8 H 1.0 H Absolute Eosinophils (0.0 - 0.7 /CUMM) 0 0 Absolute Basophils (0.0 - 0.2 /CUMM) 0 0 Metamyelocytes (0.0 - 1.0 %) 1 Platelet Estimate (ADEQUATE) ADEQUATE ADEQUATE Polychromasia 1+ Hypochromic-Microcytic 2+ 1+ Basophilic Stippling RARE Anisocytosis 1+ 1+ Stomatocytes RARE Schistocytes 1+ 06/28 06/28 06/28 2105 1515 1350 Chemistry Troponin I (< 0.11 ng/ml) 0.04 0.05 Serology Hep Bs Antigen (NONREACTIVE) NONREACTIVE Hep Bs Antibody (NONREACTIVE) NONREACTIVE
--- NOTE | 2018-07-01 11:15 | PN- CRCU ---
Subjective HPI/Critical Care Issues: Doing better On 40 percent fio2 Objective Current Medications: Current Medications Sig/Duong Start time Last Medication Dose Route Stop Time Status Admin Acetaminophen 650 MG Q6P PRN 06/28 1245 AC 06/30 PO 1423 Acetaminophen 1,000 MG Q6P PRN 06/28 1245 AC IV Albuterol Sulfate 3 ML Q4P PRN 06/28 1515 AC 06/30 INH 0855 Amlodipine Besylate 10 MG 1700 07/01 1700 AC PO Amlodipine Besylate 10 MG DAILY 06/29 0900 DC 06/30 PO 1116 Aspirin 81 MG DAILY 06/29 0900 AC 07/01 PO 0824 Atorvastatin Calcium 40 MG DAILY 06/29 0900 AC 07/01 PO 0823 Doxazosin Mesylate 4 MG 1700 07/01 1700 AC PO Doxazosin Mesylate 4 MG DAILY 06/29 0900 DC 06/30 PO 07/01 0900 1115 Fish Oil 1,050 MG DAILY 06/28 1228 AC 07/01 PO 0823 Heparin Sodium 5,000 UNIT Q8 06/28 1400 AC 07/01 (Porcine) SC 0644 Hydralazine HCl 100 MG Q8 06/30 1400 AC 07/01 PO 0646 Hydralazine HCl 100 MG TID 06/28 1400 DC 06/30 PO 0950 Isosorbide 90 MG DAILY 06/28 1226 AC 07/01 Mononitrate PO 0823 Labetalol HCl 300 MG BID 06/28 2100 AC 07/01 PO 0823 Multivitamins 1 TAB DAILY 06/29 0900 AC 07/01 Therapeutic PO 0823 Nystatin 1 FUENTES BID 06/29 2100 AC 07/01 TOP 0824 Omeprazole 40 MG DAILY AC 06/28 1436 AC 07/01 PO 0645 Sevelamer Carbonate 800 MG WM 06/28 1700 AC 07/01 PO 0824 Vital Signs & I&O Last 24 Hrs of Vitals and I&O: Vital Signs Date Time Temp Pulse Resp B/P B/P Pulse O2 O2 Flow FiO2 Mean Ox Delivery Rate 07/01 0908 95 Nasal 40% Cannula 07/01 0907 86 98 07/01 0823 60 189/80 07/01 0823 60 180/80 07/01 0646 58 20 187/80 07/01 0543 58 95 07/01 0400 96 BIPAP 40% 07/01 0332 61 96 07/01 0058 59 93 07/01 0000 96 BIPAP 40% 07/01 0000 98.8 57 18 164/80 96 BIPAP 40% 06/30 2212 57 96 06/30 2126 65 159/74 06/30 2126 65 159/74 06/30 2000 50 Nasal 50% Cannula 06/30 1942 95 Nasal 50% Cannula 06/30 1704 94 Nasal 50% Cannula 06/30 1600 94 Nasal 50% Cannula 06/30 1600 98.5 64 22 142/60 94 Nasal 50% Cannula 06/30 1426 164/62 06/30 1200 02 Nasal 4.0L Cannula 06/30 1129 61 98 06/30 1116 176/70 Intake & Output 07/01 1600 07/01 0800 07/01 0000 Intake Total 100 340 Output Total 200 100 Balance -100 240 Intake, IV 20 Intake, Oral 100 320 Output, Urine 200 100 Patient 117 lb Weight Weight Bed scale Measurement Method Impression/Plan Impression/Plan Impression/Plan: HEENT: Atraumatic Neck: Supple, JVD appeared elevated Cardiovascular: Regular Rate, Normal S1, Normal S2, faint diastolic murmur noted Lungs: OVERALL DECREASED AIR ENTRY AT THE LUNG BASES,. wheezing noted bilaterally, with significant crackles Abdomen: Normal Bowel Sounds, Soft, No Tenderness Neurological: Normal Speech, Normal Tone, Sensation Intact Extremities: EXTREMITY EDEMA IMPRESSION This is a 77-year-old lady with hypertension, hyperlipidemia, type 2 diabetes, chronic significant anemia, worsening chronic kidney diseasestage 5, chronic venous insufficiency, significant diastolic dysfunction with recurrent diastolic heart failure, recurrent mechanical fall at home, probable neuropathy, previous colon polyps, morbid obesity with worsening performance status, significant lumbosacral degeneration with chronic L1 fracture, chronic low back pain, chronic anemia, chronic lower extremity edema, morbid obesity with obstructive sleep apnea history not on CPAP regularly now has * Acute diastolic heart failure with acute hypoxemic respiratory failure * Worsening of acute resp failure after dialysis was started, RUle out Acute lung injury with pro inflammatory response vs SIg htn causing pulm edema * Sig HTN * Severe diastolic disease with high LVEDP with mitral stenosis which is compounding the issue * Morbid obesity with NITHIN * Anemia of chronic disease which is now made worse by renal failure / Need transfusion * Significant back pain and gait instability with recent fall aswell rule out significant neuropathy probably from diabetes, compounded by significant degenerative joint and disc disease in the lumbosacral area with L5 nerve root involvement in the left with right foraminal stenosis. * Aneurysmal of abd aorta * Hypertension, hyperlipidemia, diabetes relatively stable at this time * Chronic venous insufficiency with lower extremity edema * Chronic esbl colonization of the bladder with no active evidence of sepsis at this time. PT does have leukocytosis with bandemia after dialysis, no fever dysuria etc PLAN Reduce fio2 BP control Start aci COnt other meds May need transfusion in am
[2018-07-01 16:00] VITALS: BP 148/80
[2018-07-02] VITALS: BP 142/60
--- NOTE | 2018-07-02 07:05 | PN- Resident CRCU ---
Subjective HPI/CRCU Issues: #Acute hypoxemic respiratory failure #Acute diastolic failure #Mitral stenosis #Morbid obesity with obstructive sleep apnea #CKD stage V #Anemia of chronic disease #Chronic ESBL colonization of bladder #Hypertension, hyperlipidemia, diabetes, chronic venous insufficiency with lower extremity edema 24 Hour Events: Afebrile heart rate ranging in 50s-70s normal sinus rhythm. Respiratory rate ranging from 18-24. Hemodynamically stable. Blood pressure on the higher side ranging in 1 50s-170s. Patient went on BiPAP overnight. Transitioned to nasal cannula in the a.m. Having breakfast without any complaints. Clinically improved. Reports improvement in symptoms. Objective Vital Signs & I&O Last 8 Hrs of Vitals and I&O: Vital Signs Date Time Temp Pulse Resp B/P B/P Pulse O2 O2 Flow FiO2 Mean Ox Delivery Rate 07/02 0818 60 169/86 07/02 0816 60 169/86 07/02 0816 60 169/86 07/02 0651 75 18 153/67 07/02 0535 64 95 07/02 0400 97 BIPAP 40% 07/02 0314 63 95 07/02 0040 60 98 07/02 0000 98 BIPAP 40% 07/02 0000 98.2 57 18 142/60 98 BIPAP 40% 07/01 2241 94 Nasal 4.0L Cannula 07/01 2238 59 97 07/01 2209 98.1 60 20 162/67 07/01 2109 98.1 70 20 160/64 07/01 2000 96 Nasal 4.0L Cannula 07/01 1633 56 155/726 07/01 1600 96 Nasal 2.0L Cannula 07/01 1600 97.6 54 18 148/80 94 Nasal 2.0L Cannula 07/01 1451 96 Nasal 4.0L Cannula 07/01 1400 56 149/69 07/01 1250 54 148/70 07/01 1200 96 Nasal 2.0L Cannula Intake & Output 07/02 1600 07/02 0800 07/02 0000 Intake Total 100 700 Output Total 100 100 Balance 0 600 Intake, Oral 100 700 Output, Urine 100 100 Exam General Appearance: alert, awake Head: atraumatic Respiratory: decreased breath sounds Cardiovascular: regular rate/rhythm Gastrointestinal: normal bowel sounds, soft Extremities: +1 edema Current Medications: Current Medications Sig/Duong Start time Last Medication Dose Route Stop Time Status Admin Acetaminophen 650 MG Q6P PRN 06/28 1245 AC 06/30 PO 1423 Acetaminophen 1,000 MG Q6P PRN 06/28 1245 AC IV Albuterol Sulfate 3 ML Q4P PRN 06/28 1515 AC 06/30 INH 0855 Amlodipine Besylate 10 MG 1700 07/01 1700 AC 07/01 PO 1633 Aspirin 81 MG DAILY 06/29 0900 AC 07/02 PO 0817 Atorvastatin Calcium 40 MG DAILY 06/29 0900 AC 07/02 PO 0817 Doxazosin Mesylate 4 MG 1700 07/01 1700 AC 07/01 PO 1821 Fish Oil 1,050 MG DAILY 06/28 1228 AC 07/02 PO 0817 Heparin Sodium 5,000 UNIT Q8 06/28 1400 AC 07/02 (Porcine) SC 0652 Hydralazine HCl 100 MG Q8 06/30 1400 AC 07/02 PO 0651 Isosorbide 90 MG DAILY 06/28 1226 AC 07/02 Mononitrate PO 0816 Labetalol HCl 300 MG BID 06/28 2100 AC 07/02 PO 0816 Lisinopril 5 MG DAILY 07/01 1141 AC 07/02 PO 0818 Multivitamins 1 TAB DAILY 06/29 0900 AC 07/02 Therapeutic PO 0817 Nystatin 1 FUENTES BID 06/29 2100 AC 07/02 TOP 0817 Omeprazole 40 MG DAILY AC 06/28 1436 AC 07/02 PO 0652 Sevelamer Carbonate 800 MG WM 06/28 1700 AC 07/02 PO 0818 Impression/Plan Impression/Problem List Impression: The patient is 77-year-old female with past medical history of hypertension, hyperlipidemia, type 2 diabetes mellitus, chronic venous insufficiency, ESRD, anemia of chronic disease, congestive heart failure with preserved ejection fraction severe diastolic dysfunction, morbid obesity, obstructive sleep apnea, chronic back pain, lumbosacral disc degeneration with chronic L1 fracture, recurrent falls. She was brought in by ambulance with chief complaint of shortness of breath. She was initially admitted to telemetry floor later transferred to ICU in setting of acute need of dialysis. She is currently being treated and evaluated for following conditions #Acute hypoxemic respiratory failure in setting of acute exacerbation of HFpEF ( acute diastolic heart failure), compounded by worsening renal failure Vol overload and mitral stenosis -Continue BiPAP PRN transitioned to nasal cannula as tolerated -TRC and maintain oxygen saturation greater than 92% -Continue dialysis as per nephrology planned for today -Hold off Lasix -Continue to monitor intake/output -Daily weights -Continue statin and aspirin # Hypertension Her blood pressure regimen isosorbide mononitrate 90 mg once daily, labetalol 300 mg twice a day, Lasix 40 mg twice a day, hydralazine 100 mg 3 times a day, doxazosin 4 mg tablet once daily and amlodipine 10 mg once daily. Renal artery stenosis has been ordered previously. Blood pressure continues to run towards the higher side -Started on CONNIE inhibitor lisinopril 5 mg yesterday, can increase the dose to 10 ? -We have changed to amlodipine and Cardura schedule to Pm so that patient does not become hypertensive in am, we will not be holding her medications for dialysis she does not become hypotensive other runs on the higher side -Minoxidil can be added in his regimen in that event labetalol should be substituted with metoprolol #Acute desaturation with shortness of breath Patient had 3 episodes of acute desaturation up with shortness of breath which happened with dialysis. It is possible that patient might have had an inflammatory reaction related with the basement membrane (acute lung injury). Reaction to dialyzer is less likely because she maintained her blood pressure which was towards the higher side. Chest x-ray did not show any acute pulmonary edema. EKG and troponins have been negative. -Continue to monitor -Dialysis adjustment as per nephrology -No more episodes so far -We will continue to monitor patient is going to be dialyzed today. #Probable transfusion reaction Patient became acutely short of breath after starting the transfusion within 10 minutes on 06/29. She was getting dialyzed at that point she was on nasal cannula at that point. He started desaturating up to 80 patient was immediately started on BiPAP and her oxygen saturation came right back up in greater than 95 %. Patient was afebrile. Blood transfusion was stopped. Blood has been sent for transfusion reaction will follow up the results. Patient had a similar episode again on 06/30 without any blood transfusion so it might not have been a transfusion reaction to begin with. #PATO on CKD - 4 likely secondary to hypertension and diabetes Patient underwent temporary catheter placement on the day of admission and will be maintained on dialysis -Continue dialysis as per nephrology #Anemia of chronic disease in setting of CKD -Guaiac all stools. -Epogen 6000 units 3 times a week -ct to monitor, H/H stable. no transfusion done. -We are planning on blood transfusion today her labs are not drawn today will be done with dialysis. #Leukocytosis and bandemia Bands disappeared. Leukocytosis improving. Patient remains afebrile. She is not on any steroids. This all can be secondary to inflammatory response secondary to the basement membrane while being on dialysis. Labs are not drawn for the day. -Continue to monitor -Monitor off antibiotics discussed with Dr. Vang # HLD -ct Crestor #Chronic lower extremtiy edema Chronic edema is secondary to a combination of chronic venous insufficiency along with diastolic dysfunction, she says that her edema has been better after recent increase in Lasix dosage. -Do not suspect any DVT as this is her baseline edema and there is no acute change. -Continue diuresis per cardio. #Obstructive sleep apnea -Maintain on BiPAP FC/heparin dvt px Problem List: 1. (HFpEF) heart failure with preserved ejection fraction Pain Ratin Tomorrow's Labs & Rationales: cbc bep Plan DVT/Prophylaxis: mechanical, pharmacological
[2018-07-02 08:00] VITALS: BP 168/100
--- NOTE | 2018-07-02 09:54 | Transfer of Care Summary ---
Hospital Course Course Hospital Course: Reason of ICU admission for emergent dialysis HPI The patient is 77-year-old female with past medical history significant for hypertension, hyperlipidemia, type 2 diabetes mellitus, chronic venous insufficiency, ESRD, anemia of chronic disease, congestive heart failure with preserved ejection fraction severe diastolic dysfunction, monoclonal gammopathy , morbid obesity, obstructive sleep apnea, chronic back pain, lumbosacral disc degeneration with chronic L1 fracture, recurrent falls. She was brought in by ambulance with chief complaint of shortness of breath. In the emergency room, she was found to be profoundly short of breath eventually requiring the placement of a BiPAP. The initial plan was to admit patient to telemetry however later she was made in ICU admission. Patient has been following up with nephrology planning for venous mapping for left upper extremity access with aVF or AVG for dialysis in future. Interval event During her ICU stay she was treated for Acute hypoxemic respiratory failure in setting of acute exacerbation of HFpEF (acute diastolic heart failure), compounded by worsening renal failure (stage V CKD) Vol overload and mitral stenosis. Her chest x-ray was showed cardiomegaly and pulmonary edema consistent with congestive heart failure. ProBNP was 7[address]42. Recent echocardiogram was done on last admission 05/24/2018 which showed normal left ventricular size, EF of 60-65%, moderately increased left ventricular wall thickness month, diastolic heart failure and moderate pulmonary hypertension. Patient was initially discharged on 06/10 on 40 mg of Lasix however recently her Lasix dose was increased to 40 mg twice daily she received IV Lasix at urgent care and also 60 mg IV Lasix in the emergency department along with topical nitrates and was started on BiPAP She was evaluated by nephrology and it was decided to start urgent dialysis as definitive way of addressing volume status, given her pulmonary edema she would benefit from ultrafiltration with hemodialysis. She underwent temporary catheter placement and was dialyzed 3 days in a row with ultrafiltration She was initially maintained on BiPAP later transitioned to high flow and then to nasal cannula. Overnight she is being maintained on CPAP now. She has anemia of chronic disease in setting of CKD Stage 5 in setting of brittle hypertension. She was started on Epogen 6000 units 3 times a week. Her H/H was low 7.4/23. Since she was complaining of weakness and lethargic we decided to proceed with 1 unit transfusion with packed RBCs. Patient became acutely short of breath after starting the transfusion within 10 minutes on 06/29. She was getting dialyzed and she was on nasal cannula at that point. She started desaturating up to 80s and was immediately started on BiPAP and her oxygen saturation came right back up in >95%. Patient was afebrile. Blood transfusion was stopped. Blood has been sent for transfusion reaction will follow up the results. Patient had a similar episode again on 06/30 and without any blood transfusion so it might not have been a transfusion reaction to begin with. She received 1 unit PRBC on 07/02 with dialysis without any reaction. Her H/H came up appropriately. Patient had 3 episodes of acute desaturation with shortness of breath which happened with dialysis. It is possible that patient might have had an inflammatory reaction related with the basement membrane (acute lung injury). Reaction to dialyzer is less likely because she maintained her blood pressure which was towards the higher side. Chest x-ray did not show any acute pathology. EKG and troponins have been negative. There have been no more episodes of acute desaturation. Of note patient has been extremely anxious about starting dialysis as well which might have compounded the picture somewhat Patient has history of resistant hypertension. Her current regimen is isosorbide mononitrate 90 mg once daily, labetalol 300 mg twice a day, hydralazine 100 mg 3 times a day, doxazosin 4 mg tablet once daily and amlodipine 10 mg once daily. initially we thought that she will should be worked up for secondary causes however she had a renal ultrasound done in the past which ruled out renal artery stenosis. We have changed amlodipine and Cardura schedule to Pm so that patient does not become hypertensive in am, we will not be holding her medications for dialysis she does not become hypotensive actually runs on the higher side. She has been started on lisinopril 10 mg which was initially not started because of CKD since she is on dialysis since there is no contraindication now. Lasix 40 mg twice a day remains on hold as per nephrology recommendations. Minoxidil can be added in his regimen in that event labetalol should be substituted with metoprolol. Initially after starting dialysis patient had significant leukocytosis and bandemia she is not on any steroids. This all can be secondary to inflammatory response to the basement membrane while being on dialysis. Her bandemia has disappeared. Leukocytosis keeps on improving. She is being monitored off antibiotic. Patient has chronic ESBL colonization. Urine culture at this time is again growing ESBL not being treated. Remaining cultures are negative. She has chronic lower extremity edema which is combination of chronic venous insufficiency along with diastolic dysfunction. She is currently on dialysis. Resume Lasix as per nephrology recommendations For obstructive sleep apnea she is being continued on her CPAP home setting. History of diabetes mellitus last HbA1c was 5.9. Not on any medication at present Mechanical ventilation none NIPPV Bipap Antibiotic plan none Catheters/lines only pheriphral IV Nutrition heart healthy diet DVT prophylaxis subcutaneous heparin CODE STATUS DNR/DNI Things to be followed up on floor * Dialysis Thursday, change of dialsysis catheter on Thursday to tunneled line. Dialysis Thu AM with AVF in PM. * Please follow-up cardiology note today patient has been evaluated by * EKG follow up for bradycardia * Decide on evening dose of labetalol as per her heart rate and blood pressure * PT consult placed * Consider repeating HbA1c the last was done in 2016 * Repeat labs with dialaysis only unless clinically indicated Assessment/Plan: see above
--- NOTE | 2018-07-02 12:07 | PN- Cardiology ---
Subjective Subjective: Patient is improving but does complain of some fatigue today. No chest pain. Objective Vital Signs and I&Os Vital Signs Date Time Temp Pulse Resp B/P B/P Pulse O2 O2 Flow FiO2 Mean Ox Delivery Rate 07/02 1142 95 Nasal 2.0L Cannula 07/02 0818 60 169/86 07/02 0816 60 169/86 07/02 0816 60 169/86 07/02 0651 75 18 153/67 07/02 0535 64 95 07/02 0400 97 BIPAP 40% 07/02 0314 63 95 07/02 0040 60 98 07/02 0000 98 BIPAP 40% 07/02 0000 98.2 57 18 142/60 98 BIPAP 40% 07/01 2241 94 Nasal 4.0L Cannula 07/01 2238 59 97 07/01 2209 98.1 60 20 162/67 07/01 2109 98.1 70 20 160/64 07/01 2000 96 Nasal 4.0L Cannula 07/01 1633 56 155/726 07/01 1600 96 Nasal 2.0L Cannula 07/01 1600 97.6 54 18 148/80 94 Nasal 2.0L Cannula 07/01 1451 96 Nasal 4.0L Cannula 07/01 1400 56 149/69 07/01 1250 54 148/70 Intake & Output 07/02 1600 07/02 0800 07/02 0000 07/01 1600 07/01 0800 07/01 0000 Intake Total 100 700 100 340 Output Total 100 100 200 100 Balance 0 600 -100 240 Intake, IV 20 Intake, Oral 100 700 100 320 Output, Urine 100 100 200 100 Patient 184 lb 117 lb Weight Weight Bed scale Measurement Method Physical Exam: General: no apparent distress. Alert. On nasal cannula Eyes: No obvious scleral icterus. HEENT: No jugular venous distention or abnormal jugular venous pulsations. Cardiovascular: Normal intensity S1/S2. Regular Respiratory: Mildly decreased air entry bilaterally Abdomen: Soft, nontender with no guarding or rebound tenderness. Musculoskeletal: No clubbing or cyanosis noted Skin: warm Neurologic: No gross focal deficits noted. Current Medications: Current Medications Sig/Duong Start time Last Medication Dose Route Stop Time Status Admin Acetaminophen 650 MG Q6P PRN 06/28 1245 AC 06/30 PO 1423 Acetaminophen 1,000 MG Q6P PRN 06/28 1245 AC IV Albuterol Sulfate 3 ML Q4P PRN 06/28 1515 AC 06/30 INH 0855 Amlodipine Besylate 10 MG 1700 07/01 1700 AC 07/01 PO 1633 Aspirin 81 MG DAILY 06/29 0900 AC 07/02 PO 0817 Atorvastatin Calcium 40 MG DAILY 06/29 0900 AC 07/02 PO 0817 Doxazosin Mesylate 4 MG 1700 07/01 1700 AC 07/01 PO 1821 Fish Oil 1,050 MG DAILY 06/28 1228 AC 07/02 PO 0817 Heparin Sodium 5,000 UNIT Q8 06/28 1400 AC 07/02 (Porcine) SC 0652 Hydralazine HCl 100 MG Q8 06/30 1400 AC 07/02 PO 0651 Isosorbide 90 MG DAILY 06/28 1226 AC 07/02 Mononitrate PO 0816 Labetalol HCl 300 MG BID 06/28 2100 AC 07/02 PO 0816 Lisinopril 5 MG DAILY 07/01 1141 AC 07/02 PO 0818 Multivitamins 1 TAB DAILY 06/29 0900 AC 07/02 Therapeutic PO 0817 Nystatin 1 FUENTES BID 06/29 2100 AC 07/02 TOP 0817 Omeprazole 40 MG DAILY AC 06/28 1436 AC 07/02 PO 0652 Sevelamer Carbonate 800 MG WM 06/28 1700 AC 07/02 PO 0818 Results Last 48 Hrs of Labs/Mics: Laboratory Tests 07/01/18 0350: Anion Gap 6, Estimated GFR 21 L, Glucose 92, Calcium 8.8, Phosphorus 2.1 L, Magnesium 2.1, Total Bilirubin 0.7, AST 14, ALT 22, Albumin 3.4 L, CBC w Diff NO MAN DIFF REQ, RBC 2.42 L, MCV 93.3, MCH 30.2, MCHC 32.3 L, RDW 15.3 H, MPV 10.3, Gran % 87.2 H, Lymphocytes % 6.7 L, Monocytes % 4.6, Eosinophils % 1.3, Basophils % 0.2, Absolute Granulocytes 15.5 H, Absolute Lymphocytes 1.2, Absolute Monocytes 0.8 H, Absolute Eosinophils 0.2, Absolute Basophils 0 Recent Imaging Studies: Telemetry tracings were personally reviewed and shows sinus rhythm and sinus bradycardia Assessment/Plan Assessment/Plan 1. Acute on chronic diastolic heart failure with hypoxemic respiratory failure requiring BiPAP EF 65% 2. Chronic kidney disease stage V now requiring dialysis 3. Hypertension 4. Morbid obesity 5. Anemia of chronic disease 6. Chronic venous insufficiency 7. Sleep apnea 8. History of mild aortic dilatation Patient does appear to be improving. I suspect her anemia is contributing to some of her fatigue. Can consider increasing her lisinopril for better blood pressure control now that she is on dialysis. A previous renal ultrasound showed no evidence of renal artery stenosis. Eder Hager MD FAC Continue telemetry? No
--- NOTE | 2018-07-02 12:20 | PN- CRCU ---
Subjective HPI/Critical Care Issues: Afebrile heart rate ranging in 50s-70s normal sinus rhythm. Respiratory rate ranging from 18-24. Hemodynamically stable. Blood pressure on the higher side ranging in 1 50s-170s. Patient went on BiPAP overnight. Transitioned to nasal cannula in the a.m. Having breakfast without any complaints. Clinically improved. Reports improvement in symptoms. Objective Current Medications: Current Medications Sig/Doung Start time Last Medication Dose Route Stop Time Status Admin Acetaminophen 650 MG Q6P PRN 06/28 1245 AC 06/30 PO 1423 Acetaminophen 1,000 MG Q6P PRN 06/28 1245 AC IV Albuterol Sulfate 3 ML Q4P PRN 06/28 1515 AC 06/30 INH 0855 Amlodipine Besylate 10 MG 1700 07/01 1700 AC 07/01 PO 1633 Aspirin 81 MG DAILY 06/29 0900 AC 07/02 PO 0817 Atorvastatin Calcium 40 MG DAILY 06/29 0900 AC 07/02 PO 0817 Doxazosin Mesylate 4 MG 1700 07/01 1700 AC 07/01 PO 1821 Fish Oil 1,050 MG DAILY 06/28 1228 AC 07/02 PO 0817 Heparin Sodium 5,000 UNIT Q8 06/28 1400 AC 07/02 (Porcine) SC 0652 Hydralazine HCl 100 MG Q8 06/30 1400 AC 07/02 PO 0651 Isosorbide 90 MG DAILY 06/28 1226 AC 07/02 Mononitrate PO 0816 Labetalol HCl 300 MG BID 06/28 2100 AC 07/02 PO 0816 Lisinopril 5 MG DAILY 07/01 1141 AC 07/02 PO 0818 Multivitamins 1 TAB DAILY 06/29 0900 AC 07/02 Therapeutic PO 0817 Nystatin 1 FUENTES BID 06/29 2100 AC 07/02 TOP 0817 Omeprazole 40 MG DAILY AC 06/28 1436 AC 07/02 PO 0652 Sevelamer Carbonate 800 MG WM 06/28 1700 AC 07/02 PO 0818 Vital Signs & I&O Last 24 Hrs of Vitals and I&O: Vital Signs Date Time Temp Pulse Resp B/P B/P Pulse O2 O2 Flow FiO2 Mean Ox Delivery Rate 07/02 1142 95 Nasal 2.0L Cannula 07/02 0818 60 169/86 07/02 0816 60 169/86 07/02 0816 60 169/86 07/02 0651 75 18 153/67 07/02 0535 64 95 07/02 0400 97 BIPAP 40% 07/02 0314 63 95 07/02 0040 60 98 07/02 0000 98 BIPAP 40% 07/02 0000 98.2 57 18 142/60 98 BIPAP 40% 07/01 2241 94 Nasal 4.0L Cannula 07/01 2238 59 97 07/01 2209 98.1 60 20 162/67 07/01 2109 98.1 70 20 160/64 07/01 2000 96 Nasal 4.0L Cannula 07/01 1633 56 155/726 07/01 1600 96 Nasal 2.0L Cannula 07/01 1600 97.6 54 18 148/80 94 Nasal 2.0L Cannula 07/01 1451 96 Nasal 4.0L Cannula 07/01 1400 56 149/69 07/01 1250 54 148/70 Intake & Output 07/02 1600 07/02 0800 07/02 0000 Intake Total 100 700 Output Total 100 100 Balance 0 600 Intake, Oral 100 700 Output, Urine 100 100 Impression/Plan Impression/Plan Impression/Plan: HEENT: Atraumatic Neck: Supple, JVD appeared elevated Cardiovascular: Regular Rate, Normal S1, Normal S2, faint diastolic murmur noted Lungs: OVERALL DECREASED AIR ENTRY AT THE LUNG BASES,. wheezing noted bilaterally, with significant crackles Abdomen: Normal Bowel Sounds, Soft, No Tenderness Neurological: Normal Speech, Normal Tone, Sensation Intact Extremities: EXTREMITY EDEMA IMPRESSION This is a 77-year-old lady with hypertension, hyperlipidemia, type 2 diabetes, chronic significant anemia, worsening chronic kidney diseasestage 5, chronic venous insufficiency, significant diastolic dysfunction with recurrent diastolic heart failure, recurrent mechanical fall at home, probable neuropathy, previous colon polyps, morbid obesity with worsening performance status, significant lumbosacral degeneration with chronic L1 fracture, chronic low back pain, chronic anemia, chronic lower extremity edema, morbid obesity with obstructive sleep apnea history not on CPAP regularly now has * Resolved Acute diastolic heart failure with acute hypoxemic respiratory failure * Sig HTN improved after aci * Severe diastolic disease with high LVEDP with mitral stenosis which is compounding the issue * Morbid obesity with NITHIN * Anemia of chronic disease which is now made worse by renal failure / Need transfusion * Significant back pain and gait instability with recent fall aswell rule out significant neuropathy probably from diabetes, compounded by significant degenerative joint and disc disease in the lumbosacral area with L5 nerve root involvement in the left with right foraminal stenosis. * Aneurysmal of abd aorta * Hypertension, hyperlipidemia, diabetes relatively stable at this time * Chronic venous insufficiency with lower extremity edema * Chronic esbl colonization of the bladder with no active evidence of sepsis at this time. PT does have leukocytosis with bandemia after dialysis, no fever dysuria etc PLAN Reduce fio2 and dc bipap Increase lisinopril and start reducing other cardiac meds if improving on lisinopril COnt other meds Transfuse one unit during dialysis OK to tele
--- NOTE | 2018-07-02 13:19 | PN- Nephrology ---
Assessment/Plan Nephrology Assessment: Volume status much improved. Suggestion: Dialysis later today, will see if can tolerate 2 liters UF. AVF planned for next Wed at 1 PM. Subjective Subjective: Patient awake, off O2 at present. Besides fatigue not many issues. Objective Vital Signs and I&Os Vital Signs Date Time Temp Pulse Resp B/P B/P Pulse O2 O2 Flow FiO2 Mean Ox Delivery Rate 07/02 1142 95 Nasal 2.0L Cannula 07/02 0818 60 169/86 07/02 0816 60 169/86 07/02 0816 60 169/86 07/02 0651 75 18 153/67 07/02 0535 64 95 07/02 0400 97 BIPAP 40% 07/02 0314 63 95 07/02 0040 60 98 07/02 0000 98 BIPAP 40% 07/02 0000 98.2 57 18 142/60 98 BIPAP 40% 07/01 2241 94 Nasal 4.0L Cannula 07/01 2238 59 97 07/01 2209 98.1 60 20 162/67 07/01 2109 98.1 70 20 160/64 07/01 2000 96 Nasal 4.0L Cannula 07/01 1633 56 155/726 07/01 1600 96 Nasal 2.0L Cannula 07/01 1600 97.6 54 18 148/80 94 Nasal 2.0L Cannula 07/01 1451 96 Nasal 4.0L Cannula 07/01 1400 56 149/69 Intake & Output 07/02 1600 07/02 0400 07/01 1600 07/01 0400 06/30 1600 06/30 0400 Intake Total 100 700 100 340 340 570 Output Total 100 100 521 159 5198 200 Balance 0 600 -100 -2009 370 Intake, IV 20 20 Intake, Oral 100 700 100 320 320 570 Number 0 Bowel Movements Output, 2000 Dialysate Output, Urine 100 100 200 100 350 200 Patient 184 lb 185 lb Weight Weight Bed scale Bed scale Measurement Method Physical Exam: NAD VS as above Lungs: a few rhonchi CV: no rub Abd: non-tender Exts: no edema Neuro: A&O Results Pertinent Lab Results: Laboratory Tests 07/01 06/30 06/30 0350 0916 0910 Blood Gas pH (7.35 - 7.45 PH) 7.42 pCO2 (35 - 45 TORR) 41 pO2 (80 - 100 TORR) 64 L HCO3 (21 - 28 MEQ/L) 26 ABG O2 Sat (Measured) (>96.0 %) 93.0 L P-50 (Temp Corrected) N Carboxyhemoglobin (1.5 - 5.0 %) 0.2 L O2 Concentration % 50% Respiration Rate (BPM) 18 O2 Delivery Method BIPAP Vent Mode ST Expiratory Pressure (CM H2O P) 6 Inspiratory Pressure (CM H2O P) 16 Chemistry Sodium (137 - 145 mmol/L) 140 Potassium (3.5 - 5.1 mmol/L) 3.5 Chloride (98 - 107 mmol/L) 106 Carbon Dioxide (22 - 30 mmol/L) 28 Anion Gap (5 - 16) 6 BUN (7 - 17 mg/dL) 25 H Creatinine (0.5 - 1.0 mg/dL) 2.3 H Estimated GFR (>60 ml/min) 21 L Glucose (65 - 99 mg/dL) 92 Calcium (8.4 - 10.2 mg/dL) 8.8 Phosphorus (2.5 - 4.5 mg/dL) 2.1 L Magnesium (1.6 - 2.3 mg/dL) 2.1 Total Bilirubin (0.2 - 1.3 mg/dL) 0.7 AST (14 - 36 U/L) 14 ALT (9 - 52 U/L) 22 Troponin I (< 0.11 ng/ml) 0.09 Albumin (3.5 - 5.0 g/dL) 3.4 L Hematology CBC w Diff NO MAN DIFF REQ WBC (4.8 - 10.8 /CUMM) 17.8 H RBC (4.20 - 5.40 /CUMM) 2.42 L Hgb (12.0 - 16.0 G/DL) 7.3 *L Hct (37 - 47 %) 22.6 L MCV (81.0 - 99.0 FL) 93.3 MCH (27.0 - 31.0 PG) 30.2 MCHC (33.0 - 37.0 G/DL) 32.3 L RDW (11.5 - 14.5 %) 15.3 H Plt Count (130 - 400 /CUMM) 187 MPV (7.4 - 10.4 FL) 10.3 Gran % (42.2 - 75.2 %) 87.2 H Lymphocytes % (20.5 - 51.1 %) 6.7 L Monocytes % (1.7 - 9.3 %) 4.6 Eosinophils % (0 - 5 %) 1.3 Basophils % (0.0 - 2.0 %) 0.2 Absolute Granulocytes (1.4 - 6.5 /CUMM) 15.5 H Absolute Lymphocytes (1.2 - 3.4 /CUMM) 1.2 Absolute Monocytes (0.10 - 0.60 /CUMM) 0.8 H Absolute Eosinophils (0.0 - 0.7 /CUMM) 0.2 Absolute Basophils (0.0 - 0.2 /CUMM) 0 Miscellaneous Phlebotomy Draw Site RIGHT RADIAL 06/30 06/29 7233 8137 Chemistry Sodium (137 - 145 mmol/L) 141 Potassium (3.5 - 5.1 mmol/L) 3.6 Chloride (98 - 107 mmol/L) 106 Carbon Dioxide (22 - 30 mmol/L) 26 Anion Gap (5 - 16) 9 BUN (7 - 17 mg/dL) 45 H Creatinine (0.5 - 1.0 mg/dL) 3.1 H Estimated GFR (>60 ml/min) 15 L Glucose (65 - 99 mg/dL) 89 Calcium (8.4 - 10.2 mg/dL) 8.7 Phosphorus (2.5 - 4.5 mg/dL) 2.7 Magnesium (1.6 - 2.3 mg/dL) 2.1 Total Bilirubin (0.2 - 1.3 mg/dL) 0.6 AST (14 - 36 U/L) 16 ALT (9 - 52 U/L) 24 Albumin (3.5 - 5.0 g/dL) 3.4 L Hematology CBC w Diff NO MAN DIFF REQ WBC (4.8 - 10.8 /CUMM) 22.4 H RBC (4.20 - 5.40 /CUMM) 2.44 L Hgb (12.0 - 16.0 G/DL) 7.4 *L Hct (37 - 47 %) 22.7 L MCV (81.0 - 99.0 FL) 93.0 MCH (27.0 - 31.0 PG) 30.2 MCHC (33.0 - 37.0 G/DL) 32.5 L RDW (11.5 - 14.5 %) 15.8 H Plt Count (130 - 400 /CUMM) 162 MPV (7.4 - 10.4 FL) 9.9 Gran % (42.2 - 75.2 %) 91.2 H Lymphocytes % (20.5 - 51.1 %) 5.4 L Monocytes % (1.7 - 9.3 %) 2.9 Eosinophils % (0 - 5 %) 0.3 Basophils % (0.0 - 2.0 %) 0.2 Absolute Granulocytes (1.4 - 6.5 /CUMM) 20.4 H Absolute Lymphocytes (1.2 - 3.4 /CUMM) 1.2 Absolute Monocytes (0.10 - 0.60 /CUMM) 0.7 H Absolute Eosinophils (0.0 - 0.7 /CUMM) 0.1 Absolute Basophils (0.0 - 0.2 /CUMM) 0 Urines Urinalysis LIGHT H Urine Color (YEL,AMB,STR) YEL Urine Clarity (CLEAR) CLDY H Urine pH (5.0 - 8.0) 6.0 Ur Specific [place] (1.001 - 1.035) 1.025 Urine Protein (NEG,<30 MG/DL) 100 H Urine Ketones (NEG) NEG Urine Nitrite (NEG) NEG Urine Bilirubin (NEG) NEG Urine Urobilinogen (0.1 - 1.0 EU/dl) 0.2 Ur Leukocyte Esterase (NEG) LARGE H Ur Microscopic SEDIMENT EXAMINED Urine RBC (0 - 5 /HPF) RARE Urine WBC (0 - 2 /HPF) 50-75 H Ur Epithelial Cells (NONE,FEW) MANY H Urine Bacteria (NEG/NONE) PACKD H Urine Mucus (FEW,NONE) FEW Urine Hemoglobin (NEG) NEG Urine Glucose (N MG/DL) NEG 06/29 1817 Chemistry Sodium (137 - 145 mmol/L) 139 Potassium (3.5 - 5.1 mmol/L) 3.5 Chloride (98 - 107 mmol/L) 106 Carbon Dioxide (22 - 30 mmol/L) 27 Anion Gap (5 - 16) 7 BUN (7 - 17 mg/dL) 37 H Creatinine (0.5 - 1.0 mg/dL) 2.7 H Estimated GFR (>60 ml/min) 17 L Glucose (65 - 99 mg/dL) 120 H Calcium (8.4 - 10.2 mg/dL) 8.8 Phosphorus (2.5 - 4.5 mg/dL) 2.8 Magnesium (1.6 - 2.3 mg/dL) 2.0 Total Bilirubin (0.2 - 1.3 mg/dL) 0.4 AST (14 - 36 U/L) 14 ALT (9 - 52 U/L) 19 Albumin (3.5 - 5.0 g/dL) 3.4 L Hematology CBC w Diff MAN DIFF ORDERED WBC (4.8 - 10.8 /CUMM) 25.9 H RBC (4.20 - 5.40 /CUMM) 2.45 L Hgb (12.0 - 16.0 G/DL) 7.3 *L Hct (37 - 47 %) 22.5 L MCV (81.0 - 99.0 FL) 91.8 MCH (27.0 - 31.0 PG) 29.7 MCHC (33.0 - 37.0 G/DL) 32.3 L RDW (11.5 - 14.5 %) 15.8 H Plt Count (130 - 400 /CUMM) 193 MPV (7.4 - 10.4 FL) 10.6 H Gran % (42.2 - 75.2 %) 92.9 H Lymphocytes % (20.5 - 51.1 %) 3.8 L Monocytes % (1.7 - 9.3 %) 3.2 Eosinophils % (0 - 5 %) 0 Basophils % (0.0 - 2.0 %) 0.1 Absolute Granulocytes (1.4 - 6.5 /CUMM) 24.1 H Segmented Neutrophils (42.2 - 75.2 %) 91 H Band Neutrophils (0.0 - 5.0 %) 2 Absolute Lymphocytes (1.2 - 3.4 /CUMM) 1.0 L Lymphocytes (20.5 - 51.1 %) 6 L Monocytes (1.7 - 9.3 %) 1 L Absolute Monocytes (0.10 - 0.60 /CUMM) 0.8 H Absolute Eosinophils (0.0 - 0.7 /CUMM) 0 Absolute Basophils (0.0 - 0.2 /CUMM) 0 Platelet Estimate (ADEQUATE) ADEQUATE Hypochromic-Microcytic 2+ Basophilic Stippling RARE Anisocytosis 1+ Stomatocytes RARE
[2018-07-02 16:00] VITALS: BP 164/80
[2018-07-02 16:45] LABS: ABSOLUTE BASOPHIL COUNT 0 /CUMM (0.0-0.2); ABSOLUTE EOSINOPHIL COUNT 0.5 /CUMM (0.0-0.7); ABSOLUTE GRANULOCYTE CT 10.1 /CUMM (1.4-6.5); ABSOLUTE LYMPH COUNT 0.8 /CUMM (1.2-3.4); ABSOLUTE MONOCYTE COUNT 0.9 /CUMM (0.10-0.60); BASOPHIL % 0.1 % (0.0-2.0); EOSINOPHIL % 3.8 % (0-5); GRANULOCYTE % 82.3 % (42.2-75.2); MEAN CORPUSCULAR HGB 29.8 PG (27.0-31.0); MEAN CORPUSCULAR HGB CONC 31.7 G/DL (33.0-37.0); MEAN CORPUSCULAR VOLUME 93.9 FL (81.0-99.0); PLATELET COUNT 209 /CUMM (130-400); RBC DISTRIBUTION WIDTH 15.8 % (11.5-14.5); RED BLOOD CELL CT 2.37 /CUMM (4.20-5.40); WHITE BLOOD CELL COUNT 12.3 /CUMM (4.8-10.8)
[2018-07-02 16:52] LABS: HEMATOCRIT 22.2 % (37-47)
[2018-07-03] VITALS: BP 160/60
[2018-07-03 07:38] VITALS: BP 184/70
--- NOTE | 2018-07-03 08:05 | PN- Housestaff ---
Latrell DUNN,Gwendolyn 07/03/18 0805: Subjective Follow-up For: Acute hypoxic respiratory failure CKD stage V Anemia of chronic disease Tele-Events Since Last Visit: asymptomatic tona Subjective: No complaints. Sitting comfortably in the chair. Yesterday the patient was complaining of abdominal pain however that has resolved today. Had dialysis and transfusion yesterday without any reaction. Review of Systems Constitutional: Reports: see HPI. Objective Last 24 Hrs of Vital Signs/I&O Vital Signs Date Time Temp Pulse Resp B/P B/P Pulse O2 O2 Flow FiO2 Mean Ox Delivery Rate 07/03 1411 53 144/60 07/03 1407 98.3 53 20 144/60 98 Nasal 2.0L Cannula 07/03 1258 52 18 123/51 96 Nasal 2.0L Cannula 07/03 1114 96 Nasal 2.0L Cannula 07/03 1030 45 07/03 0826 60 184/70 07/03 0825 60 184/70 07/03 0825 60 184/70 07/03 0800 95 Nasal 2.0L Cannula 07/03 0738 98.1 60 17 184/70 97 CPAP 2.0L 07/03 0641 65 18 07/03 0525 63 95 07/03 0400 94 CPAP 30% 07/03 0330 59 96 07/03 0035 64 95 07/03 0000 93 CPAP 30% 07/03 0000 99.4 62 20 160/60 93 CPAP 30% 07/02 2238 63 93 07/02 2136 65 24 164/90 07/02 2031 75 24 210/90 07/02 2000 95 Nasal 2.0L Cannula 07/02 1929 70 214/94 07/02 1729 94 Nasal 2.0L Cannula 07/02 1600 96 Nasal 2.0L Cannula 07/02 1600 99.0 70 18 164/80 98 Nasal 2.0L Cannula 07/02 1431 60 168/81 Intake & Output 07/03 1600 07/03 0800 07/03 0000 Intake Total 50 100 Output Total 200 2000 Balance -150 -1900 Intake, Oral 50 100 Output, 2000 Dialysate Output, Urine 200 Patient 189 lb Weight Physical Exam General Appearance: Alert, Oriented X3 HEENT: Atraumatic Neck: Supple Cardiovascular: Normal S1, Normal S2 Lungs: Clear to Auscultation Abdomen: Normal Bowel Sounds, Soft Current Medications: Current Medications Sig/Duong Start time Last Medication Dose Route Stop Time Status Admin Acetaminophen 650 MG Q6P PRN 07/02 1530 DC PO Acetaminophen 650 MG Q6P PRN 06/28 1245 AC 07/03 PO 0333 Acetaminophen 1,000 MG Q6P PRN 06/28 1245 AC IV Albuterol Sulfate 3 ML Q4P PRN 06/28 1515 AC 06/30 INH 0855 Alprazolam 0.25 MG ONCE ONE 07/02 1545 DC 07/02 PO 07/02 1546 1629 Amlodipine Besylate 10 MG 1700 07/01 1700 AC 07/02 PO 1929 Aspirin 81 MG DAILY 06/29 0900 AC 07/03 PO 0826 Atorvastatin Calcium 40 MG DAILY 06/29 0900 AC 07/03 PO 0825 Doxazosin Mesylate 4 MG 1700 07/01 1700 AC 07/02 PO 1851 Epoetin Ld 6,000 UNIT MoWeFr PRN 07/02 1815 AC IV Fish Oil 1,050 MG DAILY 06/28 1228 AC 07/03 PO 0826 Heparin Sodium 5,000 UNIT Q8 06/28 1400 AC 07/03 (Porcine) SC 1412 Hydralazine HCl 100 MG Q8 06/30 1400 AC 07/03 PO 1411 Isosorbide 90 MG DAILY 06/28 1226 AC 07/03 Mononitrate PO 0826 Labetalol HCl 300 MG BID 06/28 2100 AC 07/03 PO 0825 Lisinopril 10 MG DAILY 07/03 0900 AC 07/03 PO 0825 Multivitamins 1 TAB DAILY 07/02 1600 AC 07/03 PO 0825 Multivitamins 1 TAB DAILY 06/29 0900 AC 07/03 Therapeutic PO 0825 Nystatin 1 FUENTES BID 06/29 2100 AC 07/03 TOP 0827 Omeprazole 40 MG DAILY AC 06/28 1436 AC 07/03 PO 0642 Sevelamer Carbonate 800 MG WM 06/28 1700 AC 07/03 PO 1214 Last 24 Hrs of Lab/Ray Results Last 24 Hrs of Labs/Mics: Laboratory Tests 07/03/18 0715: Anion Gap 8, Estimated GFR 21 L, BUN/Creatinine Ratio 10.0, CBC w Diff NO MAN DIFF REQ, RBC 2.75 L, MCV 92.6, MCH 30.4, MCHC 32.8 L, RDW 15.8 H, MPV 9.5, Gran % 77.0 H, Lymphocytes % 9.6 L, Monocytes % 8.8, Eosinophils % 4.3, Basophils % 0.3, Absolute Granulocytes 8.5 H, Absolute Lymphocytes 1.1 L, Absolute Monocytes 1.0 H, Absolute Eosinophils 0.5, Absolute Basophils 0 07/02/18 1615: Anion Gap 7, Estimated GFR 13 L, Glucose 97, Calcium 8.6, Phosphorus 2.5, Magnesium 2.1, Total Bilirubin 0.6, AST 16, ALT 19, Albumin 3.3 L, CBC w Diff NO MAN DIFF REQ, RBC 2.37 L, MCV 93.9, MCH 29.8, MCHC 31.7 L, RDW 15.8 H, MPV 10.0, Gran % 82.3 H, Lymphocytes % 6.5 L, Monocytes % 7.3, Eosinophils % 3.8, Basophils % 0.1, Absolute Granulocytes 10.1 H, Absolute Lymphocytes 0.8 L, Absolute Monocytes 0.9 H, Absolute Eosinophils 0.5, Absolute Basophils 0 07/02/18 1515: Sodium Cancelled, Potassium Cancelled, Chloride Cancelled, Carbon Dioxide Cancelled, Anion Gap Cancelled, BUN Cancelled, Creatinine Cancelled, BUN/ Creatinine Ratio Cancelled, Glucose Cancelled, Calcium Cancelled, CBC w Diff Cancelled, WBC Cancelled, RBC Cancelled, Hgb Cancelled, Hct Cancelled, MCV Cancelled, MCH Cancelled, MCHC Cancelled, RDW Cancelled, Plt Count Cancelled, MPV Cancelled Assessment/Plan Assessment: The patient is 77-year-old female with past medical history of hypertension, hyperlipidemia, type 2 diabetes mellitus, chronic venous insufficiency, ESRD, anemia of chronic disease, congestive heart failure with preserved ejection fraction severe diastolic dysfunction, morbid obesity, obstructive sleep apnea, chronic back pain, lumbosacral disc degeneration with chronic L1 fracture, recurrent falls. She was brought in by ambulance with chief complaint of shortness of breath. She was initially admitted to telemetry floor later transferred to ICU in setting of acute need of dialysis. She is currently being treated and evaluated for following conditions #Acute hypoxemic respiratory failure in setting of acute exacerbation of HFpEF ( acute diastolic heart failure), compounded by worsening renal failure Vol overload and mitral stenosis -Patient has been transitioned to nasal cannula -CPAP at night -Dialysis as per nephrology -Hold off Lasix -Continue to monitor intake/output -Daily weights -Continue statin and aspirin # Hypertension Her blood pressure regimen isosorbide mononitrate 90 mg once daily, labetalol 300 mg twice a day, Lasix 40 mg twice a day, hydralazine 100 mg 3 times a day, doxazosin 4 mg tablet once daily and amlodipine 10 mg once daily. Renal artery stenosis has been ordered previously. Blood pressure continues to run towards the higher side -We have changed to amlodipine and Cardura schedule to Pm so that patient does not become hypertensive in am, we will not be holding her medications for dialysis she does not become hypotensive other runs on the higher side -Lisinopril increased to 10 mg yesterday -Minoxidil can be added in his regimen in that event labetalol should be substituted with metoprolol #Acute desaturation with shortness of breath Patient had 3 episodes of acute desaturation with shortness of breath which happened with dialysis. It is possible that patient might have had an inflammatory reaction related with the basement membrane (acute lung injury). Reaction to dialyzer is less likely because she maintained her blood pressure which was towards the higher side. Chest x-ray did not show any acute pathology. EKG and troponins have been negative. There have been no more episodes of acute desaturation. Of note patient has been extremely anxious about starting dialysis as well which might have compounded the picture somewhat #Probable transfusion reaction unlikely Patient became acutely short of breath after starting the transfusion within 10 minutes on 06/29. She was getting dialyzed and she was on nasal cannula at that point. She started desaturating up to 80s and was immediately started on BiPAP and her oxygen saturation came right back up in >95%. Patient was afebrile. Blood transfusion was stopped. Blood has been sent for transfusion reaction will follow up the results. Patient had a similar episode again on 06/30 and without any blood transfusion so it might not have been a transfusion reaction to begin with. She received 1 unit PRBC on 07/02 with dialysis without any reaction. Her H/H came up appropriately #PATO on CKD - 4 likely secondary to hypertension Patient underwent temporary catheter placement on the day of admission and will be maintained on dialysis -Continue dialysis as per nephrology -Dialysis Thursday, change dialsysis catheter on Thursday to tunneled line. Dialysis Thu with AVF in PM. #Anemia of chronic disease in setting of CKD -Guaiac all stools. -Epogen 6000 units 3 times a week -Status post 1 unit blood transfusion #Leukocytosis and bandemia Bands disappeared. Leukocytosis improving. Patient remains afebrile. She is not on any steroids. This all can be secondary to inflammatory response secondary to the basement membrane while being on dialysis. -Continue to monitor -Monitor off antibiotics discussed with Dr. Vang # HLD -ct Crestor #Chronic lower extremtiy edema Chronic edema is secondary to a combination of chronic venous insufficiency along with diastolic dysfunction, she says that her edema has been better after recent increase in Lasix dosage. -Do not suspect any DVT as this is her baseline edema and there is no acute change. -Continue diuresis per cardio. #Obstructive sleep apnea -Maintain on BiPAP FC/heparin dvt px Problem List: 1. Hypertensive crisis Pain Ratin Pain Location: none Pain Goal: Pain 4 or less Pain Plan: prn Tomorrow's Labs & Rationales: cbc bep Ervin DUNN,Reynold 07/03/18 0850: Attending MD Review Statement Attending Statement Attending MD Statement: examined this patient, discuss w/resident/PA/CHANGER FIXER, agreed w/resident/PA/CHANGER FIXER, reviewed EMR data (avail), discussed with nursing, discussed with case mgmt, amended to note Attending Assessment/Plan: Patient seen and examined. Downgraded yesterday by the critical care service. She was on BiPAP therapy when I evaluated her this morning. Resting comfortably not in any acute distress. Denies shortness of breath chest pain. Denies palpitations. Blood pressure remains on the higher side. vital Signs Date Time Temp Pulse Resp B/P B/P Pulse O2 O2 Flow FiO2 Mean Ox Delivery Rate 07/03 0826 60 184/70 07/03 0825 60 184/70 07/03 0825 60 184/70 07/03 0738 98.1 60 17 184/70 97 CPAP 2.0L 07/03 0641 65 18 07/03 0525 63 95 07/03 0400 94 CPAP 30% 07/03 0330 59 96 07/03 0035 64 95 07/03 0000 93 CPAP 30% 07/03 0000 99.4 62 20 160/60 93 CPAP 30% 07/02 2238 63 93 07/02 2136 65 24 164/90 07/02 2031 75 24 210/90 07/02 2000 95 Nasal 2.0L Cannula 07/02 1929 70 214/94 07/02 1729 94 Nasal 2.0L Cannula 07/02 1600 96 Nasal 2.0L Cannula 07/02 1600 99.0 70 18 164/80 98 Nasal 2.0L Cannula 07/02 1431 60 168/81 07/02 1402 60 170/80 07/02 1200 96 Nasal 2.0L Cannula 07/02 1142 95 Nasal 2.0L Cannula General appearance: Well-developed and not in any acute distress. HEENT: Anicteric, no pallor, pupils equal and reactive. Neck: Supple with no jugular venous distention. Heart: S1-S2 regular with no audible murmur. Lungs: Adequate and symmetric air entry bilaterally with no added sounds. Abdomen: Nondistended with normal bowel sounds. Soft, nontender with no palpable masses. Extremities: No pedal edema. No cyanosis. Skin: Intact Problems 1. Acute hypoxemic respiratory failure. 2. Acute on chronic diastolic heart failure. 3. Uncontrolled hypertension 4. Renal disease on hemodialysis 5. Obstructive sleep apnea 6. Acute on chronic anemia. Plan: -Patient is on Cardura, Norvasc, Apresoline, Imdur for blood pressure control. Lisinopril was added this morning. May titrate upwards if adequate blood pressure control is not achieved. -Follow-up with the pulmonology service for management of pulmonary condition. She appears to continue to require BiPAP therapy. -Her anemia appears to be secondary to her chronic kidney disease. She is guaiac negative. No evidence of bleeding. Per the nephrology service. Her anemia is likely contributing to her respiratory symptoms. She did require blood transfusion of 2 units during her last hospitalization. She also received ferritin infusion during her last hospitalization. During the last hospitalization recommendations were to follow-up with the hematology service as an outpatient for further workup. She has received 1 unit of blood during his hospitalization yesterday. She did not tolerate the transfusion initially initiated on the . Follow-up hemoglobin levels this morning. -Mobilize patient as tolerated. She is on erythropoietin therapy -No need for further telemetry monitoring as recommended by the cardiology service. We transferred to general medical bed once one becomes available.
--- NOTE | 2018-07-03 08:17 | PN- CRCU ---
Subjective HPI/Critical Care Issues: The patient is awake and alert. She reports feeling markedly improved. She is sitting upright in a chair, noting she is more active in her room. She was on nasal CPAP last night at 30% with saturations in the mid 90s. She is currently on 2 L nasal cannula and has no respiratory distress. Her T-max was 99.4. No overnight events were reported. Objective Current Medications: Current Medications Sig/Duong Start time Last Medication Dose Route Stop Time Status Admin Acetaminophen 650 MG Q6P PRN 07/02 1530 DC PO Acetaminophen 650 MG Q6P PRN 06/28 1245 AC 07/03 PO 0333 Acetaminophen 1,000 MG Q6P PRN 06/28 1245 AC IV Albuterol Sulfate 3 ML Q4P PRN 06/28 1515 AC 06/30 INH 0855 Alprazolam 0.25 MG ONCE ONE 07/02 1545 DC 07/02 PO 07/02 1546 1629 Amlodipine Besylate 10 MG 1700 07/01 1700 AC 07/02 PO 1929 Aspirin 81 MG DAILY 06/29 0900 AC 07/02 PO 0817 Atorvastatin Calcium 40 MG DAILY 06/29 0900 AC 07/02 PO 0817 Doxazosin Mesylate 4 MG 1700 07/01 1700 AC 07/02 PO 1851 Epoetin Ld 6,000 UNIT MoWeFr PRN 07/02 1815 AC IV Fish Oil 1,050 MG DAILY 06/28 1228 AC 07/02 PO 0817 Heparin Sodium 5,000 UNIT Q8 06/28 1400 AC 07/03 (Porcine) SC 0643 Hydralazine HCl 100 MG Q8 06/30 1400 AC 07/03 PO 0641 Isosorbide 90 MG DAILY 06/28 1226 AC 07/02 Mononitrate PO 0816 Labetalol HCl 300 MG BID 06/28 2100 AC 07/02 PO 2031 Lisinopril 10 MG DAILY 07/03 0900 AC PO Lisinopril 5 MG ONCE ONE 07/02 1300 DC 07/02 PO 07/02 1301 1402 Lisinopril 5 MG DAILY 07/01 1141 DC 07/02 PO 0818 Multivitamins 1 TAB DAILY 07/02 1600 AC 07/02 PO 2135 Multivitamins 1 TAB DAILY 06/29 0900 AC 07/02 Therapeutic PO 0817 Nystatin 1 FUENTES BID 08/21 2100 07/02 TOP 2031 Omeprazole 40 MG DAILY AC 06/28 1436 AC 07/03 PO 0642 Sevelamer Carbonate 800 MG WM 06/28 1700 AC 07/02 PO 203 Vital Signs & I&O Last 24 Hrs of Vitals and I&O: Vital Signs Date Time Temp Pulse Resp B/P B/P Pulse O2 O2 Flow FiO2 Mean Ox Delivery Rate 07/03 0738 98.1 60 17 184/70 97 CPAP 2.0L 07/03 0641 65 18 07/03 0525 63 95 07/03 0330 59 96 07/03 0035 64 95 07/03 0000 93 CPAP 30% 07/03 0000 99.4 62 20 160/60 93 CPAP 30% 07/02 2238 63 93 07/02 2136 65 24 164/90 07/02 2031 75 24 210/90 07/02 2000 95 Nasal 2.0L Cannula 07/02 1929 70 214/94 07/02 1729 94 Nasal 2.0L Cannula 07/02 1600 96 Nasal 2.0L Cannula 07/02 1600 99.0 70 18 164/80 98 Nasal 2.0L Cannula 07/02 1431 60 168/81 07/02 1402 60 170/80 07/02 1200 96 Nasal 2.0L Cannula 07/02 1142 95 Nasal 2.0L Cannula 07/02 0818 60 169/86 Intake & Output 07/03 1600 07/03 0800 07/03 0000 Intake Total 100 Output Total 1999 Balance -1900 Intake, Oral 100 Output, 2000 Dialysate HEENT: Atraumatic Neck: Supple Cardiovascular: Regular Rate, Normal S1, Normal S2, faint murmur noted Lungs: Decreased breath sounds bilaterally, no wheezes rhonchi or rails Abdomen: Normal Bowel Sounds, Soft, No Tenderness Neurological: Normal Speech, Normal Tone, Sensation Intact Extremities: Lower extremity edema improved Results Last 24 Hrs of Lab Results: Laboratory Tests 07/03/18 0715: Sodium Pending, Potassium Pending, Chloride Pending, Carbon Dioxide Pending, Anion Gap Pending, BUN Pending, Creatinine Pending, BUN/Creatinine Ratio Pending , CBC w Diff Pending, WBC Pending, RBC Pending, Hgb Pending, Hct Pending, MCV Pending, MCH Pending, MCHC Pending, RDW Pending, Plt Count Pending, MPV Pending 07/02/18 1615: Anion Gap 7, Estimated GFR 13 L, Glucose 97, Calcium 8.6, Phosphorus 2.5, Magnesium 2.1, Total Bilirubin 0.6, AST 16, ALT 19, Albumin 3.3 L, CBC w Diff NO MAN DIFF REQ, RBC 2.37 L, MCV 93.9, MCH 29.8, MCHC 31.7 L, RDW 15.8 H, MPV 10.0, Gran % 82.3 H, Lymphocytes % 6.5 L, Monocytes % 7.3, Eosinophils % 3.8, Basophils % 0.1, Absolute Granulocytes 10.1 H, Absolute Lymphocytes 0.8 L, Absolute Monocytes 0.9 H, Absolute Eosinophils 0.5, Absolute Basophils 0 07/02/18 1515: Sodium Cancelled, Potassium Cancelled, Chloride Cancelled, Carbon Dioxide Cancelled, Anion Gap Cancelled, BUN Cancelled, Creatinine Cancelled, BUN/ Creatinine Ratio Cancelled, Glucose Cancelled, Calcium Cancelled, CBC w Diff Cancelled, WBC Cancelled, RBC Cancelled, Hgb Cancelled, Hct Cancelled, MCV Cancelled, MCH Cancelled, MCHC Cancelled, RDW Cancelled, Plt Count Cancelled, MPV Cancelled Impression/Plan Impression/Plan Impression/Plan: 1. Resolved acute diastolic heart failure with acute hypoxemic respiratory failure. 2. Significant hypertension, better control. 3. Severe diastolic heart disease and mitral stenosis. 4. Morbid obesity with NITHIN, on CPAP. 5. Anemia of chronic disease and renal failure. 6. Significant gait instability. 7. Diabetes mellitus. 8. Chronic ESBL colonization of the bladder, being monitored off antibiotics. Recommendations: * Continue nocturnal CPAP. * Continue to wean supplemental oxygen down to off for saturations greater than 92% peer * Dialysis as per nephrology. * Monitor blood pressure and adjust antihypertensives as necessary. * Transfuse to meet target hemoglobin levels. * Continue erythropoietin therapy. * Monitor for any evidence of bleeding. * Physical therapy, ambulate. * Continue DVT prophylaxis at all times. * Continue telemetry monitoring -downgraded from ICU. * Discuss plan of care with patient, her daughter, and the housestaff.
[2018-07-03 08:36] LABS: ABSOLUTE BASOPHIL COUNT 0 /CUMM (0.0-0.2); ABSOLUTE EOSINOPHIL COUNT 0.5 /CUMM (0.0-0.7); ABSOLUTE GRANULOCYTE CT 8.5 /CUMM (1.4-6.5); ABSOLUTE LYMPH COUNT 1.1 /CUMM (1.2-3.4); BASOPHIL % 0.3 % (0.0-2.0); EOSINOPHIL % 4.3 % (0-5); HEMATOCRIT 25.4 % (37-47); MEAN CORPUSCULAR HGB 30.4 PG (27.0-31.0); MEAN CORPUSCULAR HGB CONC 32.8 G/DL (33.0-37.0); MEAN CORPUSCULAR VOLUME 92.6 FL (81.0-99.0); MEAN PLATELET VOLUME 9.5 FL (7.4-10.4); PLATELET COUNT 212 /CUMM (130-400); RBC DISTRIBUTION WIDTH 15.8 % (11.5-14.5); RED BLOOD CELL CT 2.75 /CUMM (4.20-5.40); WHITE BLOOD CELL COUNT 11.1 /CUMM (4.8-10.8)
--- NOTE | 2018-07-03 10:49 | PN- Nephrology ---
Assessment/Plan Nephrology Assessment: Stable today. Suggestion: Dialysis Thursday, change dialsysis catheter on Thursday to tunneled line. Dialysis Thu with AVF in PM. Subjective Subjective: Sitting in chair, off oxygen. Objective Vital Signs and I&Os Vital Signs Date Time Temp Pulse Resp B/P B/P Pulse O2 O2 Flow FiO2 Mean Ox Delivery Rate 07/03 0826 60 184/70 07/03 0825 60 184/70 07/03 0825 60 184/70 07/03 0738 98.1 60 17 184/70 97 CPAP 2.0L 07/03 0641 65 18 07/03 0525 63 95 07/03 0400 94 CPAP 30% 07/03 0330 59 96 07/03 0035 64 95 07/03 0000 93 CPAP 30% 07/03 0000 99.4 62 20 160/60 93 CPAP 30% 07/02 2238 63 93 07/02 2136 65 24 164/90 07/02 2031 75 24 210/90 07/02 2000 95 Nasal 2.0L Cannula 07/02 1929 70 214/94 07/02 1729 94 Nasal 2.0L Cannula 07/02 1600 96 Nasal 2.0L Cannula 07/02 1600 99.0 70 18 164/80 98 Nasal 2.0L Cannula 07/02 1431 60 168/81 07/02 1402 60 170/80 07/02 1200 96 Nasal 2.0L Cannula 07/02 1142 95 Nasal 2.0L Cannula Intake & Output 07/03 1600 07/03 0400 07/02 1600 07/02 0400 07/01 1600 07/01 0400 Intake Total 50 100 980 700 100 340 Output Total 200 2000 100 100 200 100 Balance -150 -1900 880 600 -100 240 Intake, IV 20 Intake, Oral 50 100 980 700 100 320 Output, 2000 Dialysate Output, Urine 200 100 100 200 100 Patient 189 lb 184 lb Weight Weight Bed scale Measurement Method Physical Exam: NAD VS as above Lungs: aclear CV: no rub Abd: non-tender Exts: no edema Neuro: A&O Current Medications: Current Medications Sig/Duong Start time Last Medication Dose Route Stop Time Status Admin Acetaminophen 650 MG Q6P PRN 07/02 1530 DC PO Acetaminophen 650 MG Q6P PRN 06/28 1245 AC 07/03 PO 0333 Acetaminophen 1,000 MG Q6P PRN 06/28 1245 AC IV Albuterol Sulfate 3 ML Q4P PRN 06/28 1515 AC 06/30 INH 0855 Alprazolam 0.25 MG ONCE ONE 07/02 1545 DC 07/02 PO 07/02 1546 1629 Amlodipine Besylate 10 MG 1700 07/01 1700 AC 07/02 PO 1929 Aspirin 81 MG DAILY 06/29 0900 AC 07/03 PO 0826 Atorvastatin Calcium 40 MG DAILY 06/29 0900 AC 07/03 PO 0825 Doxazosin Mesylate 4 MG 1700 07/01 1700 AC 07/02 PO 1851 Epoetin Ld 6,000 UNIT MoWeFr PRN 07/02 1815 AC IV Fish Oil 1,050 MG DAILY 06/28 1228 AC 07/03 PO 0826 Heparin Sodium 5,000 UNIT Q8 06/28 1400 AC 07/03 (Porcine) SC 0643 Hydralazine HCl 100 MG Q8 06/30 1400 AC 07/03 PO 0641 Isosorbide 90 MG DAILY 06/28 1226 AC 07/03 Mononitrate PO 0826 Labetalol HCl 300 MG BID 06/28 2100 AC 07/03 PO 0825 Lisinopril 10 MG DAILY 07/03 0900 AC 07/03 PO 0825 Lisinopril 5 MG ONCE ONE 07/02 1300 DC 07/02 PO 07/02 1301 1402 Lisinopril 5 MG DAILY 07/01 1141 DC 07/02 PO 0818 Multivitamins 1 TAB DAILY 07/02 1600 AC 07/03 PO 0825 Multivitamins 1 TAB DAILY 06/29 0900 AC 07/03 Therapeutic PO 0825 Nystatin 1 FUENTES BID 06/29 2100 AC 07/03 TOP 0827 Omeprazole 40 MG DAILY AC 06/28 1436 AC 07/03 PO 0642 Sevelamer Carbonate 800 MG WM 06/28 1700 AC 07/03 PO 0826 Results Pertinent Lab Results: Laboratory Tests 07/03 07/02 0715 1615 Chemistry Sodium (137 - 145 mmol/L) 139 141 Potassium (3.5 - 5.1 mmol/L) 3.6 3.6 Chloride (98 - 107 mmol/L) 104 106 Carbon Dioxide (22 - 30 mmol/L) 27 29 Anion Gap (5 - 16) 8 7 BUN (7 - 17 mg/dL) 23 H 40 H Creatinine (0.5 - 1.0 mg/dL) 2.3 H 3.5 H Estimated GFR (>60 ml/min) 21 L 13 L BUN/Creatinine Ratio (7 - 25 %) 10.0 Glucose (65 - 99 mg/dL) 97 Calcium (8.4 - 10.2 mg/dL) 8.6 Phosphorus (2.5 - 4.5 mg/dL) 2.5 Magnesium (1.6 - 2.3 mg/dL) 2.1 Total Bilirubin (0.2 - 1.3 mg/dL) 0.6 AST (14 - 36 U/L) 16 ALT (9 - 52 U/L) 19 Albumin (3.5 - 5.0 g/dL) 3.3 L Hematology CBC w Diff NO MAN DIFF REQ NO MAN DIFF REQ WBC (4.8 - 10.8 /CUMM) 11.1 H 12.3 H RBC (4.20 - 5.40 /CUMM) 2.75 L 2.37 L Hgb (12.0 - 16.0 G/DL) 8.3 L 7.1 *L Hct (37 - 47 %) 25.4 L 22.2 L MCV (81.0 - 99.0 FL) 92.6 93.9 MCH (27.0 - 31.0 PG) 30.4 29.8 MCHC (33.0 - 37.0 G/DL) 32.8 L 31.7 L RDW (11.5 - 14.5 %) 15.8 H 15.8 H Plt Count (130 - 400 /CUMM) 212 209 MPV (7.4 - 10.4 FL) 9.5 10.0 Gran % (42.2 - 75.2 %) 77.0 H 82.3 H Lymphocytes % (20.5 - 51.1 %) 9.6 L 6.5 L Monocytes % (1.7 - 9.3 %) 8.8 7.3 Eosinophils % (0 - 5 %) 4.3 3.8 Basophils % (0.0 - 2.0 %) 0.3 0.1 Absolute Granulocytes (1.4 - 6.5 /CUMM) 8.5 H 10.1 H Absolute Lymphocytes (1.2 - 3.4 /CUMM) 1.1 L 0.8 L Absolute Monocytes (0.10 - 0.60 /CUMM) 1.0 H 0.9 H Absolute Eosinophils (0.0 - 0.7 /CUMM) 0.5 0.5 Absolute Basophils (0.0 - 0.2 /CUMM) 0 0 07/02 07/01 1515 0350 Chemistry Sodium (137 - 145 mmol/L) Cancelled 140 Potassium (3.5 - 5.1 mmol/L) Cancelled 3.5 Chloride (98 - 107 mmol/L) Cancelled 106 Carbon Dioxide (22 - 30 mmol/L) Cancelled 28 Anion Gap (5 - 16) Cancelled 6 BUN (7 - 17 mg/dL) Cancelled 25 H Creatinine (0.5 - 1.0 mg/dL) Cancelled 2.3 H Estimated GFR (>60 ml/min) 21 L BUN/Creatinine Ratio Cancelled Glucose (65 - 99 mg/dL) Cancelled 92 Calcium (8.4 - 10.2 mg/dL) Cancelled 8.8 Phosphorus (2.5 - 4.5 mg/dL) 2.1 L Magnesium (1.6 - 2.3 mg/dL) 2.1 Total Bilirubin (0.2 - 1.3 mg/dL) 0.7 AST (14 - 36 U/L) 14 ALT (9 - 52 U/L) 22 Albumin (3.5 - 5.0 g/dL) 3.4 L Hematology CBC w Diff Cancelled NO MAN DIFF REQ WBC (4.8 - 10.8 /CUMM) Cancelled 17.8 H RBC (4.20 - 5.40 /CUMM) Cancelled 2.42 L Hgb (12.0 - 16.0 G/DL) Cancelled 7.3 *L Hct (37 - 47 %) Cancelled 22.6 L MCV (81.0 - 99.0 FL) Cancelled 93.3 MCH (27.0 - 31.0 PG) Cancelled 30.2 MCHC (33.0 - 37.0 G/DL) Cancelled 32.3 L RDW (11.5 - 14.5 %) Cancelled 15.3 H Plt Count (130 - 400 /CUMM) Cancelled 187 MPV (7.4 - 10.4 FL) Cancelled 10.3 Gran % (42.2 - 75.2 %) 87.2 H Lymphocytes % (20.5 - 51.1 %) 6.7 L Monocytes % (1.7 - 9.3 %) 4.6 Eosinophils % (0 - 5 %) 1.3 Basophils % (0.0 - 2.0 %) 0.2 Absolute Granulocytes (1.4 - 6.5 /CUMM) 15.5 H Absolute Lymphocytes (1.2 - 3.4 /CUMM) 1.2 Absolute Monocytes (0.10 - 0.60 /CUMM) 0.8 H Absolute Eosinophils (0.0 - 0.7 /CUMM) 0.2 Absolute Basophils (0.0 - 0.2 /CUMM) 0
--- NOTE | 2018-07-03 11:41 | PN- Cardiology ---
Subjective Subjective: Feeling well this morning. No dyspnea at rest. No complaints. lower extremity edema almost completely resorbed. BP spiking 170-180 syst. Objective Vital Signs and I&Os Vital Signs Date Time Temp Pulse Resp B/P B/P Pulse O2 O2 Flow FiO2 Mean Ox Delivery Rate 07/03 1114 96 Nasal 2.0L Cannula 07/03 0826 60 184/70 07/03 0825 60 184/70 07/03 0825 60 184/70 07/03 0800 95 Nasal 2.0L Cannula 07/03 0738 98.1 60 17 184/70 97 CPAP 2.0L 07/03 0641 65 18 07/03 0525 63 95 07/03 0400 94 CPAP 30% 07/03 0330 59 96 07/03 0035 64 95 07/03 0000 93 CPAP 30% 07/03 0000 99.4 62 20 160/60 93 CPAP 30% 07/02 2238 63 93 07/02 2136 65 24 164/90 07/02 2031 75 24 210/90 07/02 2000 95 Nasal 2.0L Cannula 07/02 1929 70 214/94 07/02 1729 94 Nasal 2.0L Cannula 07/02 1600 96 Nasal 2.0L Cannula 07/02 1600 99.0 70 18 164/80 98 Nasal 2.0L Cannula 07/02 1431 60 168/81 07/02 1402 60 170/80 07/02 1200 96 Nasal 2.0L Cannula 07/02 1142 95 Nasal 2.0L Cannula Intake & Output 07/03 1600 07/03 0800 07/03 0000 07/02 1600 07/02 0800 07/02 0000 Intake Total 50 100 880 100 700 Output Total 200 2000 100 100 Balance -150 -1900 880 0 600 Intake, Oral 50 100 880 100 700 Output, 2000 Dialysate Output, Urine 200 100 100 Patient 189 lb Weight Current Medications: Current Medications Sig/Duong Start time Last Medication Dose Route Stop Time Status Admin Acetaminophen 650 MG Q6P PRN 07/02 1530 DC PO Acetaminophen 650 MG Q6P PRN 06/28 1245 AC 07/03 PO 0333 Acetaminophen 1,000 MG Q6P PRN 06/28 1245 AC IV Albuterol Sulfate 3 ML Q4P PRN 06/28 1515 AC 06/30 INH 0855 Alprazolam 0.25 MG ONCE ONE 07/02 1545 DC 07/02 PO 07/02 1546 1629 Amlodipine Besylate 10 MG 1700 07/01 1700 AC 07/02 PO 1929 Aspirin 81 MG DAILY 06/29 0900 AC 07/03 PO 08 Atorvastatin Calcium 40 MG DAILY 06/29 0900 AC 07/03 PO 0825 Doxazosin Mesylate 4 MG 1700 07/01 1700 AC 07/02 PO 1851 Epoetin Ld 6,000 UNIT MoWeFr PRN 07/02 1815 AC IV Fish Oil 1,050 MG DAILY 06/28 1228 AC 07/03 PO 0826 Heparin Sodium 5,000 UNIT Q8 06/28 1400 AC 07/03 (Porcine) SC 0643 Hydralazine HCl 100 MG Q8 06/30 1400 AC 07/03 PO 0641 Isosorbide 90 MG DAILY 06/28 1226 AC 07/03 Mononitrate PO 08 Labetalol HCl 300 MG BID 06/28 2100 AC 07/03 PO 0825 Lisinopril 10 MG DAILY 07/03 0900 AC 07/03 PO 0825 Lisinopril 5 MG ONCE ONE 07/02 1300 DC 07/02 PO 07/02 1301 1402 Lisinopril 5 MG DAILY 07/01 1141 DC 07/02 PO 0818 Multivitamins 1 TAB DAILY 07/02 1600 AC 07/03 PO 0825 Multivitamins 1 TAB DAILY 06/29 0900 AC 07/03 Therapeutic PO 0825 Nystatin 1 FUENTES BID 06/29 2100 AC 07/03 TOP 0827 Omeprazole 40 MG DAILY AC 06/28 1436 AC 07/03 PO 0642 Sevelamer Carbonate 800 MG WM 06/28 1700 AC 07/03 PO 0826 Results Last 48 Hrs of Labs/Mics: Laboratory Tests 07/03/18 0715: Anion Gap 8, Estimated GFR 21 L, BUN/Creatinine Ratio 10.0, CBC w Diff NO MAN DIFF REQ, RBC 2.75 L, MCV 92.6, MCH 30.4, MCHC 32.8 L, RDW 15.8 H, MPV 9.5, Gran % 77.0 H, Lymphocytes % 9.6 L, Monocytes % 8.8, Eosinophils % 4.3, Basophils % 0.3, Absolute Granulocytes 8.5 H, Absolute Lymphocytes 1.1 L, Absolute Monocytes 1.0 H, Absolute Eosinophils 0.5, Absolute Basophils 0 07/02/18 1615: Anion Gap 7, Estimated GFR 13 L, Glucose 97, Calcium 8.6, Phosphorus 2.5, Magnesium 2.1, Total Bilirubin 0.6, AST 16, ALT 19, Albumin 3.3 L, CBC w Diff NO MAN DIFF REQ, RBC 2.37 L, MCV 93.9, MCH 29.8, MCHC 31.7 L, RDW 15.8 H, MPV 10.0, Gran % 82.3 H, Lymphocytes % 6.5 L, Monocytes % 7.3, Eosinophils % 3.8, Basophils % 0.1, Absolute Granulocytes 10.1 H, Absolute Lymphocytes 0.8 L, Absolute Monocytes 0.9 H, Absolute Eosinophils 0.5, Absolute Basophils 0 07/02/18 1515: Sodium Cancelled, Potassium Cancelled, Chloride Cancelled, Carbon Dioxide Cancelled, Anion Gap Cancelled, BUN Cancelled, Creatinine Cancelled, BUN/ Creatinine Ratio Cancelled, Glucose Cancelled, Calcium Cancelled, CBC w Diff Cancelled, WBC Cancelled, RBC Cancelled, Hgb Cancelled, Hct Cancelled, MCV Cancelled, MCH Cancelled, MCHC Cancelled, RDW Cancelled, Plt Count Cancelled, MPV Cancelled Assessment/Plan Assessment/Plan 1. Acute on chronic diastolic heart failure with hypoxemic respiratory failure requiring BiPAP EF 65% 2. Chronic kidney disease stage V now requiring dialysis 3. Hypertension 4. Morbid obesity 5. Anemia of chronic disease 6. Chronic venous insufficiency 7. Sleep apnea 8. History of mild aortic dilatation I suggest administering PRN IV hydralazine if BP > 170 mmHg syst or > 105 mmHg diast., as lisinopril was just increased to 10 mg. Continue telemetry? Yes
[2018-07-03 12:58] VITALS: BP 123/51
[2018-07-03 14:07] VITALS: BP 144/60
[2018-07-03 22:16] VITALS: BP 170/72
[2018-07-04 06:41] VITALS: BP 200/80
--- NOTE | 2018-07-04 08:04 | PN- Pulmonary ---
Subjective HPI/Critical Care Issues: The patient is awake and alert. She reports feeling significantly improved. She is tired but attributes this to poor sleep quality. Her respiratory status is stable, and she is on 2 L nasal cannula with saturations in the high 90s. She denies any new respiratory complaints this morning. Objective Current Medications: Current Medications Sig/Duong Start time Last Medication Dose Route Stop Time Status Admin Acetaminophen 650 MG Q6P PRN 06/28 1245 AC 07/04 PO 0130 Acetaminophen 1,000 MG Q6P PRN 06/28 1245 AC IV Albuterol Sulfate 3 ML Q4P PRN 06/28 1515 AC 06/30 INH 0855 Amlodipine Besylate 10 MG 1700 07/01 1700 AC 07/03 PO 1716 Aspirin 81 MG DAILY 06/29 0900 AC 07/03 PO 0826 Atorvastatin Calcium 40 MG DAILY 06/29 0900 AC 07/03 PO 0825 Doxazosin Mesylate 4 MG 1700 07/01 1700 AC 07/03 PO 1716 Epoetin Ld 6,000 UNIT MoWeFr PRN 07/02 1815 AC IV Fish Oil 1,050 MG DAILY 06/28 1228 AC 07/03 PO 0826 Heparin Sodium 5,000 UNIT Q8 06/28 1400 AC 07/04 (Porcine) SC 0625 Hydralazine HCl 100 MG Q8 06/30 1400 AC 07/04 PO 0623 Isosorbide 90 MG DAILY 06/28 1226 AC 07/03 Mononitrate PO 0826 Labetalol HCl 300 MG BID 06/28 2100 AC 07/04 PO 0625 Lisinopril 10 MG DAILY 07/03 0900 AC 07/03 PO 0825 Multivitamins 1 TAB DAILY 07/02 1600 AC 07/03 PO 0825 Multivitamins 1 TAB DAILY 06/29 0900 AC 07/03 Therapeutic PO 0825 Nystatin 1 FUENTES BID 06/29 2100 DC 07/03 TOP 2048 Omeprazole 40 MG DAILY AC 06/28 1436 AC 07/04 PO 0622 Sevelamer Carbonate 800 MG WM 06/28 1700 AC 07/03 PO 1715 Vital Signs & I&O Last 24 Hrs of Vitals and I&O: Vital Signs Date Time Temp Pulse Resp B/P B/P Pulse O2 O2 Flow FiO2 Mean Ox Delivery Rate 07/04 0641 98.9 64 20 200/80 97 BIPAP 07/04 0625 62 210/90 07/04 0623 62 210/90 07/04 0047 81 96 07/04 0000 Nasal 2.0L Cannula 07/03 2255 80 94 07/03 2216 98.4 61 20 170/72 97 Nasal Cannula 07/03 2044 66 170/70 07/03 2043 66 170/70 07/03 1716 60 148/74 07/03 1600 Nasal 2.0L Cannula 07/03 1411 53 144/60 07/03 1407 98.3 53 20 144/60 98 Nasal 2.0L Cannula 07/03 1330 98 Nasal 2.0L Cannula 07/03 1258 52 18 123/51 96 Nasal 2.0L Cannula 07/03 1114 96 Nasal 2.0L Cannula 07/03 1030 45 07/03 0826 60 184/70 07/03 0825 60 184/70 07/03 0825 60 184/70 Intake & Output 07/04 1600 07/04 0800 07/04 0000 Intake Total 120 120 Output Total Balance 120 120 Intake, Oral 120 120 Number 1 Bowel Movements Patient 190 lb Weight PHYSICAL EXAM: HEENT: Atraumatic Neck: Supple Cardiovascular: Regular Rate, Normal S1, Normal S2, faint murmur noted Lungs: Decreased breath sounds bilaterally, no wheezes rhonchi or rails Abdomen: Normal Bowel Sounds, Soft, No Tenderness Neurological: Normal Speech, Normal Tone, Sensation Intact Extremities: Lower extremity edema improved Results Last 24 Hrs of Lab Results: None available. Impression/Plan Impression/Plan Impression/Plan: 1. Resolved acute diastolic heart failure with acute hypoxemic respiratory failure. 2. Significant hypertension, better control. 3. Severe diastolic heart disease and mitral stenosis. 4. Morbid obesity with NITHIN, on CPAP. 5. Anemia of chronic disease and renal failure. 6. Significant gait instability. 7. Diabetes mellitus. 8. Chronic ESBL colonization of the bladder, being monitored off antibiotics. 9. Renal failure, on dialysis. Recommendations: * Continue nocturnal CPAP. * Continue to wean supplemental oxygen down to off for saturations greater than 92%. * Follow up labs. * Monitor for any evidence of bleeding. * Physical therapy, ambulate. * Continue DVT prophylaxis at all times. * Continue telemetry monitoring -downgraded from ICU. * Continue all supportive care appear
--- NOTE | 2018-07-04 09:37 | PN- Housestaff ---
Marly Wright 07/04/18 0936: Subjective Follow-up For: Acute hypoxic respiratory failure CKD stage V Anemia of chronic disease Tele-Events Since Last Visit: Normal sinus rhythm/sinus bradycardia. Heart rate 49-62 Subjective: Patient was seen and examined lying comfortably in bed. No complaints/no acute events overnight Review of Systems Constitutional: Reports: see HPI. Objective Last 24 Hrs of Vital Signs/I&O Vital Signs Date Time Temp Pulse Resp B/P B/P Pulse O2 O2 Flow FiO2 Mean Ox Delivery Rate 07/04 2038 66 166/76 07/04 2037 66 166/76 07/04 1710 160/80 07/04 1600 Nasal 2.0L Cannula 07/04 1503 57 126/90 07/04 1442 97.4 57 17 126/90 95 07/04 1109 95 Nasal 2.0L Cannula 07/04 0953 53 158/58 07/04 0953 53 158/58 07/04 0800 Nasal 2.0L Cannula 07/04 0641 98.9 64 20 200/80 97 BIPAP 07/04 0625 62 210/90 07/04 0623 62 210/90 07/04 0047 81 96 07/04 0000 Nasal 2.0L Cannula 07/03 2255 80 94 07/03 2216 98.4 61 20 170/72 97 Nasal Cannula Intake & Output 07/04 1600 07/04 0800 07/04 0000 Intake Total 360 120 120 Output Total Balance 360 120 120 Intake, Oral 360 120 120 Number 1 Bowel Movements Patient 190 lb Weight Physical Exam General Appearance: Alert, Oriented X3, Cooperative, No Acute Distress Other Physical Findings: General Appearance: Patient seen and examined lying comfortably in bed in no acute distress. Alert, Oriented X3, Cooperative, No Acute Distress Skin: No Breakdown Skin Temp/Moisture Exam: Warm/Dry Sepsis Skin Exam (color): Normal for Ethnicity HEENT: Atraumatic, Mucous Membr. moist/pink Neck: Supple, No JVD, No thryomegaly, +2 Carotid Pulse wo Bruit Lymphatic: Axillary nl, Cervical nl Cardiovascular: Regular Rate, Normal S1, Normal S2, No Murmurs Lungs: CTA, No w/r/r Abdomen: Normal Bowel Sounds, Soft, No Tenderness, No Hepatospenomegaly Neurological: Normal Speech, Strength at 5/5 X4 Ext, Normal Tone, Sensation Intact, Cranial Nerves 3-12 NL, Reflexes 2+ Extremities: No Clubbing, No Cyanosis, No edema,Normal Pulses Vascular: Pulses Symmetrical Assessment/Plan Assessment: 77-year-old female with past medical history of hypertension, hyperlipidemia, type 2 diabetes mellitus, chronic venous insufficiency, ESRD, anemia of chronic disease, congestive heart failure with preserved ejection fraction severe diastolic dysfunction, morbid obesity, obstructive sleep apnea, chronic back pain, lumbosacral disc degeneration with chronic L1 fracture, recurrent falls. She was brought in by ambulance with chief complaint of shortness of breath. She was initially admitted to telemetry floor, transferred to ICU and was then transferred back to telemetry floor Problems 1. Acute hypoxemic respiratory failure. 2. Acute on chronic diastolic heart failure. 3. Uncontrolled hypertension 4. Renal disease now on hemodialysis 5. Obstructive sleep apnea 6. Acute on chronic anemia. PLAN: #Acute hypoxemic respiratory failure in setting of acute exacerbation of HFpEF ( acute diastolic heart failure), compounded by worsening renal failure Vol overload and mitral stenosis: -[facility]. CPAP at night -Dialysis as per nephrology -Continue to monitor intake/output/Daily weights -Continue statin and aspirin # Hypertension: Continue current regimen #Acute desaturation with shortness of breath: Patient does not complain of shortness of breath and is doing stable clinically. Continue to monitor pulse ox. #PATO on CKD -Continue dialysis as per nephrology. She is awaiting a dialysis spot -Dialysis Thursday, change dialysis catheter on Thursday to tunneled line. Dialysis Wed AM with AVF in PM. -If hemoglobin level is stable she may be discharged once an outpatient dialysis port has been secured for her. #Anemia of chronic disease in setting of CKD -Monitor H&H -Continue guaiac of all stools. -Continue Epogen 6000 units 3 times a week -Status post 1 unit blood transfusion #Leukocytosis and bandemia -Continue to monitor. Bands disappeared. Leukocytosis improving. Patient remains afebrile. #Chronic lower extremtiy edema: -Continue diuresis as per cardiology recommendations #Obstructive sleep apnea -Maintain on BiPAP FC/heparin dvt px CODE STATUS: Full code Diet: Renal dialysis site Problem List: 1. Acute hypoxemic respiratory failure 2. Acute on chronic diastolic CHF (congestive heart failure) 3. Uncontrolled hypertension Pain Ratin Pain Location: None Pain Goal: Remain pain free Pain Plan: Follow pain pathway if needed Tomorrow's Labs & Rationales: CBC, BP Ervin DUNN,Reynold 07/04/18 1125: Attending MD Review Statement Attending Statement Attending MD Statement: examined this patient, discuss w/resident/PA/ELECTROLYTIC ETCHER, agreed w/resident/PA/ELECTROLYTIC ETCHER, discussed with family, reviewed EMR data (avail), discussed with nursing, amended to note Attending Assessment/Plan: Patient seen and examined. Transferred out of the ICU yesterday. No issues overnight. Apparently the ICU she was reported to be bradycardic with heart rates in the 40s. So she was transferred to telemetry service. Overnight on telemetry she remained in sinus rhythm. She was occasionally bradycardic with heart rates in the 50s-60s. Denies chest pain or palpitations. Reports her respiratory status has improved. Denies any shortness breath at rest. She is able to ambulate around the room. She was on BiPAP therapy overnight. Patient reports that she uses CPAP therapy with oxygen at home. On examination she is not in any respiratory distress. Heart sounds are regular. Lungs are clear to auscultation bilaterally. Lower extremity edema has improved significantly. Problems 1. Acute hypoxemic respiratory failure. 2. Acute on chronic diastolic heart failure. 3. Uncontrolled hypertension 4. Renal disease now on hemodialysis 5. Obstructive sleep apnea 6. Acute on chronic anemia. Plan: -Patient is on Cardura, Norvasc, Apresoline, Imdur for blood pressure control. Lisinopril was added yesterday. Blood pressure control has improved. -Continue noninvasive mechanical ventilation at nighttime. -Patient is currently awaiting a dialysis spot. -Hemoglobin level improved following transfusion. Repeat hemoglobin level tomorrow. -If hemoglobin level is stable she may be discharged once an outpatient dialysis port has been secured for her.
[2018-07-04 14:42] VITALS: BP 126/90
[2018-07-04 22:18] VITALS: BP 166/76
--- NOTE | 2018-07-05 06:24 | PN- Housestaff ---
GhadashelbyMynor 07/05/18 0624: Subjective Follow-up For: Acute Hypoxic Resp Failure CKD Stage V Anemia of Chronic Disease Subjective: Patient was seen and examined. Daughter at bedside. No acute distress. Resting comfortably. She has no new complaints. No events overnight. Review of Systems Constitutional: Reports: see HPI. Objective Last 24 Hrs of Vital Signs/I&O Vital Signs Date Time Temp Pulse Resp B/P B/P Pulse O2 O2 Flow FiO2 Mean Ox Delivery Rate 07/06 0021 69 96 07/06 0000 Nasal 2.0L Cannula 07/05 2213 68 95 07/05 2212 94 CPAP 30% 07/05 2210 98.1 66 20 140/62 97 Nasal Cannula 07/05 2002 64 178/80 07/05 2002 64 178/80 07/05 2001 64 178/80 07/05 1436 98.2 62 18 156/72 96 07/05 1417 96 Nasal 2.0L Cannula 07/05 1309 62 182/68 07/05 1015 142/60 07/05 0832 180/80 07/05 0832 180/80 07/05 0832 180/80 07/05 0830 62 180/80 07/05 0800 95 Nasal 2.0L Cannula 07/05 0722 98.1 60 20 158/70 98 Room Air 07/05 0639 58 158/70 Intake & Output 07/06 0800 07/06 0000 07/05 1600 Intake Total 240 480 Output Total Balance 240 480 Intake, Oral 240 480 Number 1 Bowel Movements Patient 189 lb Weight Weight Bed scale Measurement Method Physical Exam General Appearance: Alert, Oriented X3, Cooperative, No Acute Distress HEENT: Atraumatic, PERRLA, EOMI Neck: Supple Cardiovascular: Normal S1, Normal S2 Lungs: Clear to Auscultation, Normal Air Movement Abdomen: Normal Bowel Sounds, Soft, No Tenderness Extremities: No Cyanosis, No Tenderness/Swelling Last 24 Hrs of Lab/Ray Results Last 24 Hrs of Labs/Mics: Laboratory Tests 07/05/18 1850: 07/05/18 1537: 07/05/18 0656: Anion Gap 11, Estimated GFR 12 L, BUN/Creatinine Ratio 12.1, CBC w Diff NO MAN DIFF REQ, RBC 2.66 L, MCV 93.0, MCH 30.6, MCHC 32.9 L, RDW 15.9 H, MPV 9.6, Gran % 74.4, Lymphocytes % 11.0 L, Monocytes % 9.2, Eosinophils % 5.0, Basophils % 0.4, Absolute Granulocytes 7.1 H, Absolute Lymphocytes 1.0 L, Absolute Monocytes 0.9 H, Absolute Eosinophils 0.5, Absolute Basophils 0 Assessment/Plan Assessment: 77-year-old female with past medical history of hypertension, hyperlipidemia, type 2 diabetes mellitus, chronic venous insufficiency, ESRD, anemia of chronic disease, congestive heart failure with preserved ejection fraction severe diastolic dysfunction, morbid obesity, obstructive sleep apnea, chronic back pain, lumbosacral disc degeneration with chronic L1 fracture, recurrent falls. She was brought in by ambulance with chief complaint of shortness of breath. She was initially admitted to telemetry floor, transferred to ICU and was then transferred back to telemetry floor. Problems 1. Acute hypoxemic respiratory failure. 2. Acute on chronic diastolic heart failure. 3. Uncontrolled hypertension 4. Renal disease now on hemodialysis 5. Obstructive sleep apnea 6. Acute on chronic anemia. #Acute hypoxemic respiratory failure in setting of acute exacerbation of HFpEF ( Volume Overlaod), in the setting of PATO on CKD Stage V -[facility]. CPAP at night -Dialysis MWF -> NPO tonight for tunneled catheter placement tomorrow -AV fistula Wed -Continue to monitor intake/output/Daily weights -Continue statin and aspirin -Monitor pulse Ox #Hypertension: Increase Lisinopril to 40mg #PATO on CKD Stage V -Monitor H&H -Continue Epogen 6000 units 3 times a week -Status post 1 unit blood transfusion #Leukocytosis and bandemia -Resolved #Obstructive sleep apnea -Maintain on BiPAP DVT PPX Full code Renal diet Problem List: 1. (HFpEF) heart failure with preserved ejection fraction Pain Ratin Pain Location: None Pain Goal: Remain pain free Pain Plan: Per [facility] Tomorrow's Labs & Rationales: None - Leukocytosis resolved H&H in 48 hrs Reynold Mueller MD 07/05/18 1134: Attending MD Review Statement Attending Statement Attending MD Statement: examined this patient, discuss w/resident/PA/VALUE ENGINEER, agreed w/resident/PA/VALUE ENGINEER, reviewed EMR data (avail), discussed with nursing, discussed with case mgmt, amended to note Attending Assessment/Plan: Patient seen and examined. Resting comfortably not in any acute distress. No issues overnight. No events on telemetry monitoring. Blood pressure remains an elevated side. She was started on lisinopril yesterday. Recommend increasing dose today and monitor for improvement of blood pressure control. She is scheduled for change of her dialysis access to a tunneled catheter tomorrow. She will continue hemodialysis today for catheter placed tomorrow will be used for hemodialysis on Thursday to determine that it is functional. Hemoglobin level is stable. Her name is likely secondary to chronic disease. Repeat H&H in 48 hours. No need for further telemetry monitoring. She may be downgraded to general medical floor. Discharge planning once cleared by the nephrology service.
[2018-07-05 07:22] VITALS: BP 158/70
[2018-07-05 08:12] LABS: ABSOLUTE BASOPHIL COUNT 0 /CUMM (0.0-0.2); ABSOLUTE EOSINOPHIL COUNT 0.5 /CUMM (0.0-0.7); ABSOLUTE GRANULOCYTE CT 7.1 /CUMM (1.4-6.5); ABSOLUTE MONOCYTE COUNT 0.9 /CUMM (0.10-0.60); BASOPHIL % 0.4 % (0.0-2.0); GRANULOCYTE % 74.4 % (42.2-75.2); HEMATOCRIT 24.7 % (37-47); MEAN CORPUSCULAR HGB 30.6 PG (27.0-31.0); MEAN CORPUSCULAR HGB CONC 32.9 G/DL (33.0-37.0); MEAN PLATELET VOLUME 9.6 FL (7.4-10.4); PLATELET COUNT 239 /CUMM (130-400); RBC DISTRIBUTION WIDTH 15.9 % (11.5-14.5); RED BLOOD CELL CT 2.66 /CUMM (4.20-5.40); WHITE BLOOD CELL COUNT 9.5 /CUMM (4.8-10.8)
[2018-07-05 08:30] VITALS: BP 180/80
[2018-07-05 10:15] VITALS: BP 142/60
--- NOTE | 2018-07-05 11:29 | PN- Nephrology ---
Assessment/Plan Nephrology Assessment: Stable, much improved. Suggestion: Dialysis later today with another 2 liter UF. IR to change dialysis catheter to tunnelled line tomorrow. Dialysis again 8-29 AM with AVF in PM. Subjective Subjective: Patient feeling well, not sob. Objective Vital Signs and I&Os Vital Signs Date Time Temp Pulse Resp B/P B/P Pulse O2 O2 Flow FiO2 Mean Ox Delivery Rate 07/05 1015 142/60 07/05 0832 180/80 07/05 0832 180/80 07/05 0832 180/80 07/05 0830 62 180/80 07/05 0800 95 Nasal 2.0L Cannula 07/05 0722 98.1 60 20 158/70 98 Room Air 07/05 0639 58 158/70 07/05 0135 56 96 07/04 2242 Nasal 2.0L Cannula 07/048 97.6 64 18 166/76 97 Nasal Cannula 07/04 2214 70 96 07/04 2214 95 Nasal 2.0L Cannula 07/04 2038 66 166/76 07/04 2037 66 166/76 07/04 1710 160/80 07/04 1600 Nasal 2.0L Cannula 07/04 1503 57 126/90 07/04 1442 97.4 57 17 126/90 95 Intake & Output 07/05 1600 07/05 0400 07/04 1600 07/04 0400 07/03 1600 07/03 0400 Intake Total 120 120 480 120 50 100 Output Total 200 2000 Balance 120 120 480 120 -150 -1900 Intake, Oral 120 120 480 120 50 100 Number 1 Bowel Movements Output, 2000 Dialysate Output, Urine 200 Patient 195 lb 190 lb 189 lb Weight Physical Exam: NAD VS as above Lungs: aclear CV: no rub Abd: non-tender Exts: no edema Neuro: A&O Current Medications: Current Medications Sig/Duong Start time Last Medication Dose Route Stop Time Status Admin Acetaminophen 0 .STK-MED ONE 07/04 1502 DC PO Acetaminophen 650 MG Q6P PRN 06/28 1245 AC 07/05 PO 0914 Acetaminophen 1,000 MG Q6P PRN 06/28 1245 AC IV Albuterol Sulfate 3 ML Q4P PRN 06/28 1515 AC 06/30 INH 0855 Amlodipine Besylate 10 MG 1700 07/01 1700 AC 07/04 PO 1710 Aspirin 81 MG DAILY 06/29 0900 AC 07/05 PO 0832 Atorvastatin Calcium 40 MG DAILY 06/29 0900 AC 07/05 PO 0832 Doxazosin Mesylate 4 MG 1700 07/01 1700 AC 07/04 PO 1710 Epoetin Ld 6,000 UNIT MoWeFr PRN 07/02 1815 AC IV Fish Oil 1,050 MG DAILY 06/28 1228 AC 07/05 PO 0832 Heparin Sodium 5,000 UNIT Q8 06/28 1400 AC 07/05 (Porcine) SC 0638 Hydralazine HCl 100 MG Q8 06/30 1400 AC 07/05 PO 0639 Isosorbide 90 MG DAILY 06/28 1226 AC 07/05 Mononitrate PO 0832 Labetalol HCl 300 MG BID 06/28 2100 AC 07/05 PO 0832 Lisinopril 40 MG DAILY 07/06 0900 AC PO Lisinopril 10 MG DAILY 07/03 0900 DC 07/05 PO 0832 Multivitamins 1 TAB DAILY 07/02 1600 AC 07/05 PO 0832 Multivitamins 1 TAB DAILY 06/29 0900 AC 07/05 Therapeutic PO 0832 Omeprazole 40 MG DAILY AC 06/28 1436 AC 07/05 PO 0639 Sevelamer Carbonate 800 MG WM 06/28 1700 AC 07/05 PO 0821 Results Pertinent Lab Results: Laboratory Tests 07/05 07/03 0656 0715 Chemistry Sodium (137 - 145 mmol/L) 140 139 Potassium (3.5 - 5.1 mmol/L) 3.7 3.6 Chloride (98 - 107 mmol/L) 106 104 Carbon Dioxide (22 - 30 mmol/L) 23 27 Anion Gap (5 - 16) 11 8 BUN (7 - 17 mg/dL) 46 H 23 H Creatinine (0.5 - 1.0 mg/dL) 3.8 H 2.3 H Estimated GFR (>60 ml/min) 12 L 21 L BUN/Creatinine Ratio (7 - 25 %) 12.1 10.0 Hematology CBC w Diff NO MAN DIFF REQ NO MAN DIFF REQ WBC (4.8 - 10.8 /CUMM) 9.5 11.1 H RBC (4.20 - 5.40 /CUMM) 2.66 L 2.75 L Hgb (12.0 - 16.0 G/DL) 8.1 L 8.3 L Hct (37 - 47 %) 24.7 L 25.4 L MCV (81.0 - 99.0 FL) 93.0 92.6 MCH (27.0 - 31.0 PG) 30.6 30.4 MCHC (33.0 - 37.0 G/DL) 32.9 L 32.8 L RDW (11.5 - 14.5 %) 15.9 H 15.8 H Plt Count (130 - 400 /CUMM) 239 212 MPV (7.4 - 10.4 FL) 9.6 9.5 Gran % (42.2 - 75.2 %) 74.4 77.0 H Lymphocytes % (20.5 - 51.1 %) 11.0 L 9.6 L Monocytes % (1.7 - 9.3 %) 9.2 8.8 Eosinophils % (0 - 5 %) 5.0 4.3 Basophils % (0.0 - 2.0 %) 0.4 0.3 Absolute Granulocytes (1.4 - 6.5 /CUMM) 7.1 H 8.5 H Absolute Lymphocytes (1.2 - 3.4 /CUMM) 1.0 L 1.1 L Absolute Monocytes (0.10 - 0.60 /CUMM) 0.9 H 1.0 H Absolute Eosinophils (0.0 - 0.7 /CUMM) 0.5 0.5 Absolute Basophils (0.0 - 0.2 /CUMM) 0 0 07/02 07/02 1615 1515 Chemistry Sodium (137 - 145 mmol/L) 141 Cancelled Potassium (3.5 - 5.1 mmol/L) 3.6 Cancelled Chloride (98 - 107 mmol/L) 106 Cancelled Carbon Dioxide (22 - 30 mmol/L) 29 Cancelled Anion Gap (5 - 16) 7 Cancelled BUN (7 - 17 mg/dL) 40 H Cancelled Creatinine (0.5 - 1.0 mg/dL) 3.5 H Cancelled Estimated GFR (>60 ml/min) 13 L BUN/Creatinine Ratio Cancelled Glucose (65 - 99 mg/dL) 97 Cancelled Calcium (8.4 - 10.2 mg/dL) 8.6 Cancelled Phosphorus (2.5 - 4.5 mg/dL) 2.5 Magnesium (1.6 - 2.3 mg/dL) 2.1 Total Bilirubin (0.2 - 1.3 mg/dL) 0.6 AST (14 - 36 U/L) 16 ALT (9 - 52 U/L) 19 Albumin (3.5 - 5.0 g/dL) 3.3 L Hematology CBC w Diff NO MAN DIFF REQ Cancelled WBC (4.8 - 10.8 /CUMM) 12.3 H Cancelled RBC (4.20 - 5.40 /CUMM) 2.37 L Cancelled Hgb (12.0 - 16.0 G/DL) 7.1 *L Cancelled Hct (37 - 47 %) 22.2 L Cancelled MCV (81.0 - 99.0 FL) 93.9 Cancelled MCH (27.0 - 31.0 PG) 29.8 Cancelled MCHC (33.0 - 37.0 G/DL) 31.7 L Cancelled RDW (11.5 - 14.5 %) 15.8 H Cancelled Plt Count (130 - 400 /CUMM) 209 Cancelled MPV (7.4 - 10.4 FL) 10.0 Cancelled Gran % (42.2 - 75.2 %) 82.3 H Lymphocytes % (20.5 - 51.1 %) 6.5 L Monocytes % (1.7 - 9.3 %) 7.3 Eosinophils % (0 - 5 %) 3.8 Basophils % (0.0 - 2.0 %) 0.1 Absolute Granulocytes (1.4 - 6.5 /CUMM) 10.1 H Absolute Lymphocytes (1.2 - 3.4 /CUMM) 0.8 L Absolute Monocytes (0.10 - 0.60 /CUMM) 0.9 H Absolute Eosinophils (0.0 - 0.7 /CUMM) 0.5 Absolute Basophils (0.0 - 0.2 /CUMM) 0
--- NOTE | 2018-07-05 12:36 | PN- Cardiology ---
Subjective Subjective: Patient reports no new complaints today. Objective Vital Signs and I&Os Vital Signs Date Time Temp Pulse Resp B/P B/P Pulse O2 O2 Flow FiO2 Mean Ox Delivery Rate 07/05 1015 142/60 07/05 08 180/80 07/05 0832 180/80 07/05 0832 180/80 07/05 0830 62 180/80 07/05 0800 95 Nasal 2.0L Cannula 07/05 0722 98.1 60 20 158/70 98 Room Air 07/05 0639 58 158/70 07/05 0135 56 96 07/04 2242 Nasal 2.0L Cannula 07/04 2218 97.6 64 18 166/76 97 Nasal Cannula 07/04 2214 70 96 07/04 2214 95 Nasal 2.0L Cannula 07/04 2038 66 166/76 07/04 2037 66 166/76 07/04 1710 160/80 07/04 1600 Nasal 2.0L Cannula 07/04 1503 57 126/90 07/04 1442 97.4 57 17 126/90 95 Intake & Output 07/05 1600 07/05 0800 07/05 0000 07/04 1600 07/04 0800 07/04 0000 Intake Total 120 120 360 120 120 Output Total Balance 120 120 360 120 120 Intake, Oral 120 120 360 120 120 Number 1 Bowel Movements Patient 195 lb 190 lb Weight Physical Exam: General: no apparent distress. Alert. On nasal cannula Eyes: No obvious scleral icterus. HEENT: No jugular venous distention or abnormal jugular venous pulsations. Cardiovascular: Normal intensity S1/S2. Regular Respiratory: Mildly decreased air entry bilaterally Abdomen: Soft, nontender with no guarding or rebound tenderness. Musculoskeletal: No clubbing or cyanosis noted Skin: warm Neurologic: No gross focal deficits noted. Current Medications: Current Medications Sig/Duong Start time Last Medication Dose Route Stop Time Status Admin Acetaminophen 0 .STK-MED ONE 07/04 1502 DC PO Acetaminophen 650 MG Q6P PRN 06/28 1245 AC 07/05 PO 0914 Acetaminophen 1,000 MG Q6P PRN 06/28 1245 AC IV Albuterol Sulfate 3 ML Q4P PRN 06/28 1515 AC 06/30 INH 0855 Amlodipine Besylate 10 MG 1700 07/01 1700 AC 07/04 PO 1710 Aspirin 81 MG DAILY 06/29 0900 AC 07/05 PO 0832 Atorvastatin Calcium 40 MG DAILY 06/29 0900 AC 07/05 PO 0832 Doxazosin Mesylate 4 MG 1700 07/01 1700 AC 07/04 PO 1710 Epoetin Ld 6,000 UNIT MoWeFr PRN 07/02 1815 AC IV Fish Oil 1,050 MG DAILY 06/28 1228 AC 07/05 PO 0832 Heparin Sodium 5,000 UNIT Q8 06/28 1400 AC 07/05 (Porcine) SC 0638 Hydralazine HCl 100 MG Q8 06/30 1400 AC 07/05 PO 0639 Isosorbide 90 MG DAILY 06/28 1226 AC 07/05 Mononitrate PO 0832 Labetalol HCl 300 MG BID 06/28 2100 AC 07/05 PO 0832 Lisinopril 40 MG DAILY 07/06 0900 AC PO Lisinopril 10 MG DAILY 07/03 0900 DC 07/05 PO 0832 Multivitamins 1 TAB DAILY 07/02 1600 AC 07/05 PO 0832 Multivitamins 1 TAB DAILY 06/29 0900 AC 07/05 Therapeutic PO 0832 Omeprazole 40 MG DAILY AC 06/28 1436 AC 07/05 PO 0639 Sevelamer Carbonate 800 MG WM 06/28 1700 AC 07/05 PO 0821 Results Last 48 Hrs of Labs/Mics: Laboratory Tests 07/05/18 0656: Anion Gap 11, Estimated GFR 12 L, BUN/Creatinine Ratio 12.1, CBC w Diff NO MAN DIFF REQ, RBC 2.66 L, MCV 93.0, MCH 30.6, MCHC 32.9 L, RDW 15.9 H, MPV 9.6, Gran % 74.4, Lymphocytes % 11.0 L, Monocytes % 9.2, Eosinophils % 5.0, Basophils % 0.4, Absolute Granulocytes 7.1 H, Absolute Lymphocytes 1.0 L, Absolute Monocytes 0.9 H, Absolute Eosinophils 0.5, Absolute Basophils 0 Recent Imaging Studies: Telemetry tracings are personally reviewed and shows sinus rhythm Assessment/Plan Assessment/Plan 1. Acute on chronic diastolic heart failure with hypoxemic respiratory failure requiring BiPAP EF 65% 2. Chronic kidney disease stage V now requiring dialysis 3. Hypertension 4. Morbid obesity 5. Anemia of chronic disease 6. Chronic venous insufficiency 7. Sleep apnea 8. History of mild aortic dilatation Patient with no new complaints today. Manual blood pressure appears reasonable this morning. She did receive her lisinopril this morning. She is being planned for AV fistula. Eder Hager MD [facility] Continue telemetry? No
[2018-07-05 14:36] VITALS: BP 156/72
--- NOTE | 2018-07-05 16:18 | PN- Pulmonary ---
Subjective HPI/Critical Care Issues: Patient reports no new complaints today. DId use bipap last night Objective Current Medications: Current Medications Sig/Duong Start time Last Medication Dose Route Stop Time Status Admin Acetaminophen 650 MG Q6P PRN 06/28 1245 AC 07/05 PO 0914 Acetaminophen 1,000 MG Q6P PRN 06/28 1245 AC IV Albuterol Sulfate 3 ML Q4P PRN 06/28 1515 AC 06/30 INH 0855 Amlodipine Besylate 10 MG 1700 07/01 1700 AC 07/04 PO 1710 Aspirin 81 MG DAILY 06/29 0900 AC 07/05 PO 0832 Atorvastatin Calcium 40 MG DAILY 06/29 0900 AC 07/05 PO 0832 Doxazosin Mesylate 4 MG 1700 07/01 1700 AC 07/04 PO 1710 Epoetin Ld 6,000 UNIT MoWeFr PRN 07/02 1815 AC IV Fish Oil 1,050 MG DAILY 06/28 1228 AC 07/05 PO 0832 Heparin Sodium 5,000 UNIT Q8 06/28 1400 AC 07/05 (Porcine) SC 1308 Hydralazine HCl 100 MG Q8 06/30 1400 AC 07/05 PO 1309 Isosorbide 90 MG DAILY 06/28 1226 AC 07/05 Mononitrate PO 0832 Labetalol HCl 300 MG BID 06/28 2100 AC 07/05 PO 0832 Lisinopril 40 MG DAILY 07/06 0900 AC PO Lisinopril 10 MG DAILY 07/03 0900 DC 07/05 PO 0832 Multivitamins 1 TAB DAILY 07/02 1600 AC 07/05 PO 0832 Multivitamins 1 TAB DAILY 06/29 0900 AC 07/05 Therapeutic PO 0832 Omeprazole 40 MG DAILY AC 06/28 1436 AC 07/05 PO 0639 Sevelamer Carbonate 800 MG WM 06/28 1700 AC 07/05 PO 1308 Vital Signs & I&O Last 24 Hrs of Vitals and I&O: Vital Signs Date Time Temp Pulse Resp B/P B/P Pulse O2 O2 Flow FiO2 Mean Ox Delivery Rate 07/05 1436 98.2 62 18 156/72 96 07/05 1417 96 Nasal 2.0L Cannula 07/05 1309 62 182/68 07/05 1015 142/60 07/05 0832 180/80 07/05 0832 180/80 07/05 0832 180/80 07/05 0830 62 180/80 07/05 0800 95 Nasal 2.0L Cannula 07/05 0722 98.1 60 20 158/70 98 Room Air 07/05 0639 58 158/70 07/05 0135 56 96 07/04 2242 Nasal 2.0L Cannula 07/04 2218 97.6 64 18 166/76 97 Nasal Cannula 07/04 2214 70 96 07/04 2214 95 Nasal 2.0L Cannula 07/04 2038 66 166/76 07/04 2037 66 166/76 07/04 1710 160/80 Intake & Output 07/05 1600 07/05 0800 07/05 0000 Intake Total 480 120 120 Output Total Balance 480 120 120 Intake, Oral 480 120 120 Patient 195 lb Weight Impression/Plan Impression/Plan Impression/Plan: HEENT: Atraumatic Neck: Supple, JVD appeared elevated Cardiovascular: Regular Rate, Normal S1, Normal S2, faint diastolic murmur noted Lungs: OVERALL DECREASED AIR ENTRY AT THE LUNG BASES,. wheezing noted bilaterally, with significant crackles Abdomen: Normal Bowel Sounds, Soft, No Tenderness Neurological: Normal Speech, Normal Tone, Sensation Intact Extremities: EXTREMITY EDEMA IMPRESSION This is a 77-year-old lady with hypertension, hyperlipidemia, type 2 diabetes, chronic significant anemia, worsening chronic kidney diseasestage, chronic venous insufficiency, significant diastolic dysfunction with recurrent diastolic heart failure, recurrent mechanical fall at home, probable neuropathy, previous colon polyps, morbid obesity with worsening performance status, significant lumbosacral degeneration with chronic L1 fracture, chronic low back pain, chronic anemia, chronic lower extremity edema, morbid obesity with obstructive sleep apnea history not on CPAP regularly now has * Resolved Acute diastolic heart failure with acute hypoxemic respiratory failure/ now on dialysis with esrd and on dialysis improving * Sig HTN improved after aci * Severe diastolic disease with high LVEDP with mitral stenosis which is compounding the issue * Morbid obesity with NITHIN, needs to go back on cpap * Anemia of chronic disease which is now made worse by renal failure * Significant back pain and gait instability with recent fall aswell rule out significant neuropathy probably from diabetes, compounded by significant degenerative joint and disc disease in the lumbosacral area with L5 nerve root involvement in the left with right foraminal stenosis. * Aneurysmal of abd aorta * Hypertension, hyperlipidemia, diabetes relatively stable at this time * Chronic venous insufficiency with lower extremity edema * Chronic esbl colonization of the bladder with no active evidence of sepsis at this time. PT does have leukocytosis with bandemia after dialysis, no fever dysuria etc PLAN Reduce fio2 and use only cpap of 8 at hs Cont other meds BP mgt per cardio and renal Can reduce omeprazole
[2018-07-05 22:10] VITALS: BP 140/62
[2018-07-06 06:33] VITALS: BP 160/60
--- NOTE | 2018-07-06 07:02 | PN- Housestaff ---
[facility] 07[facility]06/18 0702: Subjective Follow-up For: Acute hypoxic respiratory failure due to acute diastolic congestive heart failure. End-stage renal disease on dialysis Hypertensive urgency Tele-Events Since Last Visit: Off tele Subjective: No overnight events. Patient remained afebrile. Seen and examined this morning. Patient is on 2 L of oxygen and maintaining saturation 93%. She denied chest pain, palpitation, nausea, vomiting, chills, fever, abdominal pain dysuria. Patient is n.p.o. and going for tunneled catheter today. Patient is getting dialysis on Thursday. Review of Systems Constitutional: Denies: chills, fever. EENTM: Reports: no symptoms. Cardiovascular: Denies: chest pain, palpitations. Respiratory: Reports: short of breath. Denies: cough, sputum production. Gastrointestinal: Denies: abdominal pain, constipation, diarrhea, distention, vomiting. Genitourinary: Reports: no symptoms. Neurological/Psychological: Reports: see HPI. Objective Last 24 Hrs of Vital Signs/I&O Vital Signs Date Time Temp Pulse Resp B/P B/P Pulse O2 O2 Flow FiO2 Mean Ox Delivery Rate 07/06 0757 160/60 07/06 0756 160/60 07/06 0755 160/60 07/06 0633 98.3 66 20 160/60 96 BIPAP 07/06 0631 63 160/64 07/06 0021 69 96 07/06 0000 Nasal 2.0L Cannula 07/05 2213 68 95 07/05 2212 94 CPAP 30% 07/05 2210 98.1 66 20 140/62 97 Nasal Cannula 07/05 2002 64 178/80 07/05 2002 64 178/80 07/05 2001 64 178/80 07/05 1436 98.2 62 18 156/72 96 07/05 1417 96 Nasal 2.0L Cannula 07/05 1309 62 182/68 07/05 1015 142/60 07/05 0832 180/80 07/05 0832 180/80 07/05 0832 180/80 07/05 0830 62 180/80 Intake & Output 07/06 1600 07/06 0800 07/06 0000 Intake Total 240 Output Total Balance 240 Intake, Oral 240 Number 1 Bowel Movements Patient 189 lb Weight Weight Bed scale Measurement Method Physical Exam General Appearance: Alert, Cooperative, No Acute Distress Skin: No Rashes Skin Temp/Moisture Exam: Warm/Dry Sepsis Skin Exam (color): Normal for Ethnicity HEENT: Atraumatic Neck: Supple Cardiovascular: Normal S1, Normal S2 Lungs: Descreased breath sounds b/l Abdomen: Soft, No Tenderness Neurological: Normal Speech, Normal Tone Extremities: No Edema, b/l chronic venous changes. Assessment/Plan Assessment: 77 YO F PMH of hypertension, hyperlipidemia, type 2 diabetes, chronic significant anemia, worsening chronic kidney diseasestage, chronic venous insufficiency, significant diastolic dysfunction with recurrent diastolic heart failure, recurrent mechanical fall at home, probable neuropathy, previous colon polyps, morbid obesity with worsening performance status, significant lumbosacral degeneration with chronic L1 fracture, chronic low back pain, chronic anemia, chronic lower extremity edema, morbid obesity with obstructive sleep apnea history not on CPAP regularly now. Patient was admitted initially to ICU and she remained on BiPAP. Patient never been intubated. After stabilization patient was downgraded to telemetry floor. Following on telemetry floor for following problems: Acute hypoxic respiratory failure due to acute on chronic diastolic congestive heart failure:(improving) -Continue supplemental oxygen to keep her saturation above 92%. -Patient is on 2 L and maintaining saturation 96%. Patient used CPAP last night and this morning she was on BiPAP for brief time. -TRC nebulization as needed -Her blood cultures are negative so far. -Continue lisinopril 40 mg daily -Follow-up cardiology recommendations. -Follow-up pulmonology recommendations End-stage renal disease on maintenance dialysis: -Stage V chronic kidney disease -Patient is getting dialysis on Thursday -Continue Epogen and sevelamer. -Patient went for tunneled catheter to IR today. -Patient will get AV fistula for permanent dialysis in future on left arm. -Patient will be n.p.o. midnight for AV fistula tomorrow -We will keep gentle hydration overnight and preop TBC and BMP. Anemia of chronic disease: -Due to chronic kidney injury -Continue Epogen Hypertensive urgency:(improving) -Today his blood pressure is 160 /60 -Continue lisinopril, lisinopril dose was increased yesterday. -Continue amlodipine, doxazosin, imdur, labetalol and hydralazine. History of hyperlipidemia: -Continue atorvastatin History of obstructive sleep apnea: -Continue CPAP at nighttime -Pt to go for sleep study in a few weeks and will decide on CPAP settings after that and she would need a new machine subsequently. DVT prophylaxis: Mechanical and pharmacological CODE STATUS: Full code Problem List: 1. Hypertensive emergency 2. Acute on chronic diastolic CHF (congestive heart failure) 3. Acute hypoxemic respiratory failure Pain Ratin Pain Location: none Pain Goal: Remain pain free Pain Plan: pain pathway Tomorrow's Labs & Rationales: cbc/bep Reynold Mueller MD 07/06/18 1133: Attending MD Review Statement Attending Statement Attending MD Statement: discuss w/resident/PA/KITCHEN CLERK, agreed w/resident/PA/KITCHEN CLERK, discussed with family, reviewed EMR data (avail), discussed with nursing, discussed with case mgmt, amended to note Attending Assessment/Plan: No issues overnight reported by nursing staff. Blood pressure is better controlled this morning. We will continue patient on the current regimen. She is scheduled for tunnel catheter placement today. Tomorrow she will undergo hemodialysis and placement of an AV fistula. We will continue inpatient management until she is cleared for discharge by the nephrology service.
--- NOTE | 2018-07-06 08:51 | PN- Vascular Surgery ---
See Addendum Surgical Brief Attending Note Brief Attending Note: DR GARZA PLANS TO TAKE THE PT TO THE OR TOMORROW, 07/07, FOR CREATION OF LEFT ARM AV FISTULA. NPO AFTER NIGHTNIGHT, MEDS WITH SIPS OK PRE-OP CBC AND BMP IVF FOR GENTLE HYDRATION
--- NOTE | 2018-07-06 13:28 | PN- Pulmonary ---
Subjective HPI/Critical Care Issues: No overnight events. Patient remained afebrile. Seen and examined this morning. Patient is on 2 L of oxygen and maintaining saturation 93%. She denied chest pain, palpitation, nausea, vomiting, chills, fever, abdominal pain dysuria. Patient is n.p.o. and going for tunneled catheter today. Patient is getting dialysis on Thursday Objective Current Medications: Current Medications Sig/Duong Start time Last Medication Dose Route Stop Time Status Admin Acetaminophen 650 MG Q6P PRN 06/28 1245 AC 07/05 PO 1958 Acetaminophen 1,000 MG Q6P PRN 06/28 1245 AC IV Albuterol Sulfate 3 ML Q4P PRN 06/28 1515 AC 06/30 INH 0855 Amlodipine Besylate 10 MG 1700 07/01 1700 AC 07/05 PO 2000 Aspirin 81 MG DAILY 06/29 0900 AC 07/05 PO 0832 Atorvastatin Calcium 40 MG DAILY 06/29 0900 AC 07/06 PO 075 Doxazosin Mesylate 4 MG 07/01 1700 AC 07/05 PO 2000 Epoetin Ld 6,000 UNIT MoWeFr PRN 07/02 1815 AC IV Fentanyl Citrate 0 .STK-MED ONE 07/06 0914 DC .ROUTE Fish Oil 1,050 MG DAILY 06/28 1228 AC 07/05 PO 0832 Heparin Sodium 0 .STK-MED ONE 07/06 0803 DC (Porcine) IV Heparin Sodium 5,000 UNIT Q8 06/28 1400 AC 07/06 (Porcine) SC 0630 Hydralazine HCl 100 MG Q8 06/30 1400 AC 07/06 PO 0631 Isosorbide 90 MG DAILY 06/28 1226 AC 07/06 Mononitrate PO 0755 Labetalol HCl 300 MG BID 06/28 2100 AC 07/06 PO 0757 Lidocaine 0 .STK-MED ONE 07/06 0804 DC .ROUTE Lidocaine/Epinephrine 0 .STK-MED ONE 07/06 0803 DC .ROUTE Lisinopril 40 MG DAILY 07/06 0900 AC 07/06 PO 0756 Morphine Sulfate 1 MG ONCE ONE 07/06 0145 DC 07/06 IV 07/06 0146 0141 Morphine Sulfate 0 .STK-MED ONE 07/06 0140 DC .ROUTE Multivitamins 1 TAB DAILY 07/02 1600 AC 07/06 PO 0756 Multivitamins 1 TAB DAILY 06/29 0900 AC 07/05 Therapeutic PO 0832 Omeprazole 20 MG DAILY AC 07/06 0700 AC 07/06 PO 0631 Omeprazole 40 MG DAILY AC 06/28 1436 DC 07/05 PO 0639 Sevelamer Carbonate 800 MG WM 06/28 1700 AC 07/06 PO 1237 Tramadol HCl 25 MG ONCE ONE 07/06 0045 DC 07/06 PO 07/06 0046 0044 Tramadol HCl 0 .STK-MED ONE 07/06 0044 DC PO Vital Signs & I&O Last 24 Hrs of Vitals and I&O: Vital Signs Date Time Temp Pulse Resp B/P B/P Pulse O2 O2 Flow FiO2 Mean Ox Delivery Rate 07/06 0800 Nasal 2.0L Cannula 07/06 0757 160/60 07/06 0756 160/60 07/06 0755 160/60 07/06 0633 98.3 66 20 160/60 96 BIPAP 07/06 0631 63 160/64 07/06 0021 69 96 07/06 0000 Nasal 2.0L Cannula 07/05 2213 68 95 07/05 2212 94 CPAP 30% 07/05 2210 98.1 66 20 140/62 97 Nasal Cannula 07/05 2002 64 178/80 07/05 2002 64 178/80 07/05 2001 64 178/80 07/05 1436 98.2 62 18 156/72 96 07/05 1417 96 Nasal 2.0L Cannula Intake & Output 07/06 1600 07/06 0800 07/06 0000 Intake Total 240 Output Total Balance 240 Intake, Oral 240 Number 1 Bowel Movements Patient 189 lb Weight Weight Bed scale Measurement Method Impression/Plan Impression/Plan Impression/Plan: HEENT: Atraumatic Neck: Supple, JVD appeared elevated Cardiovascular: Regular Rate, Normal S1, Normal S2, faint diastolic murmur noted Lungs: OVERALL DECREASED AIR ENTRY AT THE LUNG BASES,. wheezing noted bilaterally, with significant crackles Abdomen: Normal Bowel Sounds, Soft, No Tenderness Neurological: Normal Speech, Normal Tone, Sensation Intact Extremities: EXTREMITY EDEMA IMPRESSION This is a 77-year-old lady with hypertension, hyperlipidemia, type 2 diabetes, chronic significant anemia, worsening chronic kidney diseasestage, chronic venous insufficiency, significant diastolic dysfunction with recurrent diastolic heart failure, recurrent mechanical fall at home, probable neuropathy, previous colon polyps, morbid obesity with worsening performance status, significant lumbosacral degeneration with chronic L1 fracture, chronic low back pain, chronic anemia, chronic lower extremity edema, morbid obesity with obstructive sleep apnea history not on CPAP regularly now has * Resolved Acute diastolic heart failure with acute hypoxemic respiratory failure/ now on dialysis with esrd and on dialysis improving * Sig HTN improved after aci * Severe diastolic disease with high LVEDP with mitral stenosis which is compounding the issue * Morbid obesity with NITHIN, needs to go back on cpap * Anemia of chronic disease which is now made worse by renal failure * Significant back pain and gait instability with recent fall aswell rule out significant neuropathy probably from diabetes, compounded by significant degenerative joint and disc disease in the lumbosacral area with L5 nerve root involvement in the left with right foraminal stenosis. * Aneurysmal of abd aorta * Hypertension, hyperlipidemia, diabetes relatively stable at this time * Chronic venous insufficiency with lower extremity edema * Chronic esbl colonization of the bladder with no active evidence of sepsis at this time. PT does have leukocytosis with bandemia after dialysis, no fever dysuria etc PLAN Reduce fio2 and use only cpap of 8 at hs Cont other meds BP mgt per cardio and renal Can reduce omeprazole Will follow prn Pt to go for sleep study in a few weeks and will decide on linda CPAP settings after that and she would need a new machine subsequently
[2018-07-06 14:59] VITALS: BP 144/62
--- NOTE | 2018-07-06 15:38 | INTERVENTIONAL RADIOLOGY RPT ---
PROCEDURE: Conversion of temporary hemodialysis catheter to tunneled hemodialysis catheter with fluoroscopic guidance CLINICAL INFORMATION: Long-term access required for dialysis. MEDICATION: -50 mcg of fentanyl was administered in divided doses by dedicated radiology nurse under my direct supervision. -1% lidocaine and lidocaine with epinephrine were utilized for local anesthetic. ACCESS: Previously accessed site of the right internal jugular vein was utilized. IMAGING: fluoroscopy. FLUOROSCOPY TIME: 53 seconds DOSE AREA PRODUCT: 4.6 Gy-cm2 (snell-centimeter squared) DESCRIPTION: Informed consent was obtained from the patient prior to the procedure. During this process, the procedure and potential alternatives were explained, along with the intended outcome and benefits. The risks of the procedure, as well as the risks of not doing the procedure, were discussed. The patient was given the opportunity to ask questions regarding the procedure and appeared competent to make medical decisions. A signed consent form which documents this discussion was placed in the medical record. The patient was placed on the procedure table. A final timeout was called. The right chest wall and neck were prepped in a sterile fashion with maximal barrier protection. Initial fluoroscopic imaging demonstrated proper positioning of the temporary hemodialysis catheter. The right upper chest was anesthetized using lidocaine and lidocaine with epinephrine. After measurements were taken the new tunneled hemodialysis catheter was tunneled subcutaneously using blunt dissection from the upper right chest to the venotomy site. A wire was placed through the existing temporary hemodialysis catheter and the old catheter was removed. The tract was dilated and a peel-away sheath was placed The inner dilator and wire were removed, and the new 23 cm tip to cuff tunneled hemodialysis catheter was advanced through the sheath. The sheath was peeled away. The catheter was tested, flushed, and sutured to the skin with its tip in the high right atrium. The catheter ports were packed with heparin per routine protocol. A sterile bandage was placed. The venotomy site was closed with dermabond. IMPRESSION: Successful and uncomplicated conversion of temporary hemodialysis catheter to tunneled 23 cm tip to cuff hemodialysis catheter. Catheter ready to use at this time.
[2018-07-06 22:10] VITALS: BP 122/60
[2018-07-07 06:26] VITALS: BP 126/62
[2018-07-07 08:09] LABS: ABSOLUTE BASOPHIL COUNT 0 /CUMM (0.0-0.2); ABSOLUTE EOSINOPHIL COUNT 0.4 /CUMM (0.0-0.7); ABSOLUTE GRANULOCYTE CT 5.1 /CUMM (1.4-6.5); ABSOLUTE LYMPH COUNT 1.2 /CUMM (1.2-3.4); ABSOLUTE MONOCYTE COUNT 0.7 /CUMM (0.10-0.60); BASOPHIL % 0.6 % (0.0-2.0); EOSINOPHIL % 4.9 % (0-5); GRANULOCYTE % 68.8 % (42.2-75.2); MEAN CORPUSCULAR HGB CONC 32.4 G/DL (33.0-37.0); MEAN CORPUSCULAR VOLUME 92.6 FL (81.0-99.0); MEAN PLATELET VOLUME 9.3 FL (7.4-10.4); PLATELET COUNT 253 /CUMM (130-400); RBC DISTRIBUTION WIDTH 16.2 % (11.5-14.5); RED BLOOD CELL CT 2.71 /CUMM (4.20-5.40); WHITE BLOOD CELL COUNT 7.4 /CUMM (4.8-10.8)
--- NOTE | 2018-07-07 08:11 | PN- Nephrology ---
Assessment/Plan Nephrology Assessment: Stable on dialysis Suggestion: 2 liter UF today. AVF later today. Outpatient slot available when patient ready for discharge. Subjective Subjective: Patient undergoing dialysis. New Neal catheter in place. URR of 67% at 3.5 hours , but with increassed flow to 400 should be better. Patient has outpatient slot for 3PM starting 07-09 if she is ready for discharge. Objective Vital Signs and I&Os Vital Signs Date Time Temp Pulse Resp B/P B/P Pulse O2 O2 Flow FiO2 Mean Ox Delivery Rate 07/07 0626 98.3 56 20 126/62 96 Room Air 07/07 0533 158/80 07/07 0100 69 96 07/07 0000 Nasal 2.0L Cannula 07/06 2335 94 CPAP 30% 07/06 2331 94 07/06 2210 98.3 68 20 122/60 97 Nasal Cannula 07/06 2146 58 144/62 07/06 2146 58 144/62 07/06 1748 58 144/62 07/06 1628 58 144/62 07/06 1459 98.1 58 20 144/62 94 Nasal Cannula 07/06 1422 95 Nasal 2.0L Cannula Intake & Output 07/07 1600 07/07 0400 07/06 1600 07/06 0400 07/05 1600 07/05 0400 Intake Total 450 350 240 600 120 Output Total Balance 450 350 240 600 120 Intake, IV 50 Intake, Oral 450 300 240 600 120 Number 0 1 Bowel Movements Patient 189 lb 195 lb Weight Weight Bed scale Measurement Method Physical Exam: NAD VS as above Lungs: aclear CV: no rub Abd: non-tender Exts: no edema Neuro: A&O Current Medications: Current Medications Sig/Duong Start time Last Medication Dose Route Stop Time Status Admin Acetaminophen 650 MG Q6P PRN 06/28 1245 AC 07/07 PO 0534 Acetaminophen 1,000 MG Q6P PRN 06/28 1245 AC IV Albuterol Sulfate 3 ML Q4P PRN 06/28 1515 DC 06/30 INH 0855 Amlodipine Besylate 10 MG 07/01 1700 AC 07/06 PO 1748 Aspirin 81 MG DAILY 06/29 09 AC 07/05 PO 0832 Atorvastatin Calcium 40 MG DAILY 06/29 09 AC 07/06 PO 0756 Doxazosin Mesylate 4 MG 07/01 1700 AC 07/06 PO 1747 Epoetin Ld 6,000 UNIT MoWeFr PRN 07/02 1815 AC IV Fentanyl Citrate 0 .STK-MED ONE 07/06 0914 DC .ROUTE Fish Oil 1,050 MG DAILY 06/28 1228 AC 07/05 PO 0832 Heparin Sodium 5,000 UNIT Q8 06/28 1400 AC 07/07 (Porcine) SC 0532 Hydralazine HCl 100 MG Q8 06/30 1400 AC 07/07 PO 0533 Isosorbide 90 MG DAILY 06/28 1226 AC 07/06 Mononitrate PO 0755 Labetalol HCl 300 MG BID 06/28 2100 AC 07/06 PO 2146 Lisinopril 40 MG DAILY 07/06 0900 AC 07/06 PO 0756 Multivitamins 1 TAB DAILY 07/02 1600 AC 07/06 PO 0756 Multivitamins 1 TAB DAILY 06/29 0900 AC 07/05 Therapeutic PO 0832 Omeprazole 20 MG DAILY AC 07/06 0700 AC 07/06 PO 0631 Sevelamer Carbonate 800 MG WM 06/28 1700 AC 07/06 PO 1748 Results Pertinent Lab Results: Laboratory Tests 07/07 07/05 07/05 07/05 0635 1850 1537 0656 Chemistry Sodium (137 - 145 mmol/L) Pending 140 Potassium (3.5 - 5.1 mmol/L) Pending 3.7 Chloride (98 - 107 mmol/L) Pending 106 Carbon Dioxide (22 - 30 mmol/L) Pending 23 Anion Gap (5 - 16) Pending 11 BUN (7 - 17 mg/dL) Pending 15 46 H 46 H Creatinine (0.5 - 1.0 mg/dL) Pending 3.8 H Estimated GFR (>60 ml/min) 12 L BUN/Creatinine Ratio (7 - 25 %) Pending 12.1 Hematology CBC w Diff Pending NO MAN DIFF REQ WBC (4.8 - 10.8 /CUMM) Pending 9.5 RBC (4.20 - 5.40 /CUMM) Pending 2.66 L Hgb (12.0 - 16.0 G/DL) Pending 8.1 L Hct (37 - 47 %) Pending 24.7 L MCV (81.0 - 99.0 FL) Pending 93.0 MCH (27.0 - 31.0 PG) Pending 30.6 MCHC (33.0 - 37.0 G/DL) Pending 32.9 L RDW (11.5 - 14.5 %) Pending 15.9 H Plt Count (130 - 400 /CUMM) Pending 239 MPV (7.4 - 10.4 FL) Pending 9.6 Gran % (42.2 - 75.2 %) 74.4 Lymphocytes % (20.5 - 51.1 %) 11.0 L Monocytes % (1.7 - 9.3 %) 9.2 Eosinophils % (0 - 5 %) 5.0 Basophils % (0.0 - 2.0 %) 0.4 Absolute Granulocytes (1.4 - 6.5 /CUMM) 7.1 H Absolute Lymphocytes (1.2 - 3.4 /CUMM) 1.0 L Absolute Monocytes (0.10 - 0.60 /CUMM) 0.9 H Absolute Eosinophils (0.0 - 0.7 /CUMM) 0.5 Absolute Basophils (0.0 - 0.2 /CUMM) 0
--- NOTE | 2018-07-07 08:17 | PN- Housestaff ---
[facility] Subjective Follow-up For: Acute hypoxic respiratory failure due to acute diastolic congestive heart failure. End-stage renal disease on dialysis Hypertensive urgency Tele-Events Since Last Visit: off Telemetry Subjective: No overnight events. Patient remained afebrile. Seen and examined this morning. Patient denies chest pain, nausea, vomiting, chills, palpitation, cough, sputum and dysuria. This morning she was on 2 L and maintaining saturation 96%. Patient used CPAP last night for brief time. Patient is feeling much improved. She is n.p.o. and going for AV fistula formation for permanent dialysis. Review of Systems Constitutional: Denies: chills, fever, weakness. EENTM: Reports: no symptoms. Cardiovascular: Denies: chest pain, palpitations, syncope. Respiratory: Denies: cough, short of breath, wheezing. Gastrointestinal: Denies: abdominal pain, constipation, diarrhea, vomiting. Genitourinary: Reports: no symptoms. Neurological/Psychological: Reports: no symptoms. Objective Last 24 Hrs of Vital Signs/I&O Vital Signs Date Time Temp Pulse Resp B/P B/P Pulse O2 O2 Flow FiO2 Mean Ox Delivery Rate 07/07 0626 98.3 56 20 126/62 96 Room Air 07/07 0533 158/80 07/07 0100 69 96 07/07 0000 Nasal 2.0L Cannula 07/06 2335 94 CPAP 30% 07/06 2331 94 07/06 2210 98.3 68 20 122/60 97 Nasal Cannula 07/06 2146 58 144/62 07/06 2146 58 144/62 07/06 1748 58 144/62 07/06 1628 58 144/62 07/06 1459 98.1 58 20 14462 94 Nasal Cannula 07/06 1422 95 Nasal 2.0L Cannula Intake & Output 07/07 1600 07/07 0800 07/07 0000 Intake Total 450 Output Total Balance 450 Intake, Oral 450 Physical Exam General Appearance: Alert, Oriented X3, Cooperative Skin Temp/Moisture Exam: Warm/Dry Sepsis Skin Exam (color): Normal for Ethnicity HEENT: Atraumatic, PERRLA, EOMI Neck: Supple Cardiovascular: Normal S1, Normal S2 Lungs: Clear to Auscultation Abdomen: Soft, No Tenderness Neurological: Normal Speech, Strength at 5/5 X4 Ext, Normal Tone Extremities: No Edema Assessment/Plan Assessment: 77 YO F PMH of hypertension, hyperlipidemia, type 2 diabetes, chronic significant anemia, worsening chronic kidney diseasestage, chronic venous insufficiency, significant diastolic dysfunction with recurrent diastolic heart failure, recurrent mechanical fall at home, probable neuropathy, previous colon polyps, morbid obesity with worsening performance status, significant lumbosacral degeneration with chronic L1 fracture, chronic low back pain, chronic anemia, chronic lower extremity edema, morbid obesity with obstructive sleep apnea history not on CPAP regularly now. Patient was admitted initially to ICU and she remained on BiPAP. Patient never been intubated. After stabilization patient was downgraded to telemetry floor. Following on telemetry floor for following problems: Acute hypoxic respiratory failure due to acute on chronic diastolic congestive heart failure:(improving) -Continue supplemental oxygen to keep her saturation above 92%. -Patient is on 2 L and maintaining saturation 96%. Patient used CPAP last night for brief time. -TRC nebulization as needed -Her blood cultures are negative so far. -Continue lisinopril 40 mg daily -Follow-up cardiology recommendations. -Follow-up pulmonology recommendations End-stage renal disease on maintenance dialysis: -Stage V chronic kidney disease. -Patient is getting dialysis on Thursday. -Patient has scheduled dialysis as outpatient on Thursday by nephrology if patient is able to discharged tomorrow. -Continue Epogen and sevelamer. -Patient went for tunneled catheter to IR today. -Patient will get AV fistula for permanent dialysis in future on left arm. -Patient is n.p.o. and going for AV fistula today. Anemia of chronic disease: -Due to chronic kidney injury. -S/P 2 blood transfusion. Her H&H is stable. -Continue Epogen Leukocytosis:(resolved) -Possibly reactionary as patient remained afibrile. Her wbc count is within normal limit. -Patient was kept off antibiotics. Hypertensive urgency:(improving) -Today his blood pressure is 126/62 -Continue lisinopril, lisinopril dose was increased. -Continue amlodipine, doxazosin, imdur, labetalol and hydralazine. History of hyperlipidemia: -Continue atorvastatin History of obstructive sleep apnea: -Continue CPAP at nighttime -Pt to go for sleep study in a few weeks and will decide on CPAP settings after that and she would need a new machine subsequently. DVT prophylaxis: Mechanical and pharmacological CODE STATUS: Full code Problem List: 1. Acute hypoxemic respiratory failure 2. Hypertensive urgency 3. Acute on chronic diastolic CHF (congestive heart failure) Pain Ratin Pain Location: none Pain Goal: Remain pain free Pain Plan: pain pathway Tomorrow's Labs & Rationales: none Reynold Mueller MD 07/07/18 1257: Attending MD Review Statement Attending Statement Attending Statement: examined this patient, discuss w/resident/PA/CANDY CUTTER MACHINE, agreed w/resident/PA/CANDY CUTTER MACHINE, reviewed EMR data (avail), discussed with nursing, discussed with case mgmt, amended to note Attending Assessment/Plan: No issues overnight reported by nursing staff. Blood pressure remains adequately controlled. Patient scheduled for AV fistula placement today and then hemodialysis. Outpatient hemodialysis slot has been obtained from patient. If no complications from the fistula overnight she may be discharged home tomorrow
[2018-07-07 09:32] LABS: ABSOLUTE BASOPHIL COUNT 0 /CUMM (0.0-0.2); ABSOLUTE EOSINOPHIL COUNT 0.3 /CUMM (0.0-0.7); ABSOLUTE GRANULOCYTE CT 5.2 /CUMM (1.4-6.5); ABSOLUTE LYMPH COUNT 1.2 /CUMM (1.2-3.4); ABSOLUTE MONOCYTE COUNT 0.7 /CUMM (0.10-0.60); BASOPHIL % 0.6 % (0.0-2.0); EOSINOPHIL % 4.1 % (0-5); MEAN CORPUSCULAR HGB 30.2 PG (27.0-31.0); MEAN CORPUSCULAR HGB CONC 32.7 G/DL (33.0-37.0); MEAN CORPUSCULAR VOLUME 92.3 FL (81.0-99.0); MEAN PLATELET VOLUME 9.1 FL (7.4-10.4); PLATELET COUNT 257 /CUMM (130-400); RBC DISTRIBUTION WIDTH 15.9 % (11.5-14.5); RED BLOOD CELL CT 2.71 /CUMM (4.20-5.40); WHITE BLOOD CELL COUNT 7.4 /CUMM (4.8-10.8)
[2018-07-07 11:47] VITALS: BP 178/80
--- NOTE | 2018-07-07 12:39 | Discharge Summary ---
Visit Information Visit Dates Admission Date: 06/28/18 Discharge Date: 07/08/18 Hospital Course Course Attending Physician: Reynold Mueller MD Primary Care Physician: Anuj Danielson MD Hospital Course: 77 YO F PMH of hypertension, hyperlipidemia, type 2 diabetes, chronic significant anemia, worsening chronic kidney diseasestage, chronic venous insufficiency, significant diastolic dysfunction with recurrent diastolic heart failure, recurrent mechanical fall at home, probable neuropathy, previous colon polyps, morbid obesity with worsening performance status, significant lumbosacral degeneration with chronic L1 fracture, chronic low back pain, chronic anemia, chronic lower extremity edema, morbid obesity with obstructive sleep apnea history not on CPAP regularly now. Patient was admitted initially to ICU and she remained on BiPAP. Patient never been intubated. After stabilization patient was downgraded to telemetry floor. ED course: Vital: Temperature 98.6, pulse 83, respiratory 22, blood pressure 174/77, oxygen saturation 96% on 4 L of oxygen. Labs: WBC count 7.0, hemoglobin 7.7, hematocrit 23.3, platelet count 201, sodium 145, potassium 3.4, BUN 87, creatinine 5.9, glucose 105, calcium 8.6, troponin 0.05, anion gap 13, INR 1.26. Acute hypoxic respiratory failure due to acute on chronic diastolic congestive heart failure: Patient presented with acute hypoxic respiratory failure due to acute on chronic diastolic congestive heart failure and overload due to end-stage renal disease. Patient remained in ICU but she never been intubated. She remained on BiPAP and cardiology consult was obtained. Patient was started on lisinopril 40 mg. Considering her end-stage renal disease and fluid overload nephrology consult was obtained and they recommended renal dialysis. Patient was dialyzed while in ICU and her condition got better but patient remained on BiPAP for a couple of days. During the dialysis patient has shortness of breath while she was on high flow oxygen. During that time her blood transfusion was discontinued and less likely TRALI. Patient was put back on BiPAP and she got better. After stabilization patient was downgraded to telemetry floor. Patient was using 2 L of oxygen and maintaining saturation above 92%. Patient remained hemodynamically stable and she was discharged on 2 L of home oxygen. Patient was advised to see pulmonology in 1 week and primary care physician after the discharge. End-stage renal disease on maintenance dialysis: Patient had stage V chronic kidney disease. Patient's renal function did not improve and she was requiring dialysis as she was fluid overload. Initially tunneled catheter was placed and she was dialyzed and later on AV fistula was performed by vascular surgery. Patient was given Epogen and sevelamer during dialysis. Patient will remain on maintenance dialysis on Thursday, Thursday and Thursday. Nephrology will follow the patient as outpatient and will arrange maintain dialysis for 3 days a week. Patient was advised to follow nephrology as outpatient. Patient will also follow vascular surgery to remove her stephanie after AV fistula formation. Anemia of chronic disease: Patient had anemia of chronic disease. During the hospital stay had H&H dropped. She received 2 blood transfusion and after that her H&H remained stable. Patient was also getting Epogen. Her stool guaiac remained negative. Leukocytosis: Patient had leukocytosis probably due to reactionary, stress-induced. Patient remained afebrile during hospital stay. He was kept off antibiotics and monitored for signs of infection. Her WBC count came back to within normal limits. Hypertensive urgency: Patient presented with hypertensive urgency and she was treated with antihypertensive medications. She received IV hydralazine and IV labetalol pushes as needed as needed to control her blood pressure. Lisinopril was added in her antihypertensive medications. Later on patient's blood pressure remained under control with her antihypertensive medications. History of hyperlipidemia: Continued atorvastatin. History of obstructive sleep apnea: Continued CPAP at nighttime as needed. Patient will go for sleep study in a few weeks and will decide on CPAP settings after that and she would need a new machine subsequently. Patient was instructed to follow pulmonology as outpatient. DVT prophylaxis: Mechanical and pharmacological CODE STATUS: Full code Allergies: Coded Allergies: oxycodone (From PERCOCET) (Intermediate, HALLUCINATIONS 06/30/18) Significant Procedures: EXAM TYPE: IR - FLUORO GUID VENOUS ACCESS; INTERVENTIONAL SETUP; US GUIDANCE IN IR PROCEDURE: ULTRASOUND AND FLUOROSCOPICALLY GUIDED RIGHT INTERNAL JUGULAR VEIN TEMPORARY DIALYSIS CATHETER PLACEMENT INTERVENTIONAL RADIOLOGIST: Germain Black M.D. CLINICAL HISTORY: 77-year-old female requiring temporary dialysis catheter for renal failure. COMPARISON: Chest CT 06/03/2018 MEDICATION: 1% lidocaine was used for local anesthetic. FLUOROSCOPY TIME: 66 seconds NUMBER OF IMAGES: 1 image TECHNIQUE: Informed consent was obtained from the patient prior to the procedure. During this process, the procedure and potential alternatives were explained along with the intended outcome and benefits. The risks of the procedure, including the possibility of an unsuccessful procedure, as well as the risk of not doing the procedure were discussed. The patient was given the opportunity to ask questions regarding the procedure. A consent form which documents this discussion was placed in the medical record. A timeout procedure was performed. Following informed consent the patient was placed supine on the fluoroscopic table. The right neck and chest were prepped and draped in usual sterile fashion. All elements of maximal sterile barrier technique were followed including use of cap, mask, sterile gown, sterile gloves, a sterile full body drape and hand hygiene. The skin was prepared with 2% chlorhexidine for cutaneous antisepsis and sterile ultrasound preparation with sterile gel and probe cover was performed when applicable. Using ultrasound guidance the right internal jugular vein was localized. Ultrasound was utilized to assess the vascular structures for access. A standard puncture into the right internal jugular vein was performed with a Micro-Stick system. The wire was advanced into the IVC to confirm venous placement. Over the wire dilatation was performed and a temporary hemodialysis catheter was advanced over the wire. Catheter terminates in the proximal right atrium. Silk suture was utilized for catheter securement. The patient tolerated the procedure well. The patient was transferred back to the floor in stable condition. ULTRASOUND-GUIDED VASCULAR ACCESS: Ultrasound was used to identify the right internal jugular vein. The right internal jugular vein was confirmed to be patent. Real time imaging confirmed needle access into the right internal jugular vein. An image was saved for permanent recording in PACS. IMPRESSION: Successful placement of temporary hemodialysis catheter via the right internal jugular vein. EXAM TYPE: IR - FLUORO GUID VENOUS ACCESS; INTERVENTIONAL SETUP PROCEDURE: Conversion of temporary hemodialysis catheter to tunneled hemodialysis catheter with fluoroscopic guidance CLINICAL INFORMATION: Long-term access required for dialysis. MEDICATION: -50 mcg of fentanyl was administered in divided doses by dedicated radiology nurse under my direct supervision. -1% lidocaine and lidocaine with epinephrine were utilized for local anesthetic. ACCESS: Previously accessed site of the right internal jugular vein was utilized. IMAGING: fluoroscopy. FLUOROSCOPY TIME: 53 seconds DOSE AREA PRODUCT: 4.6 Gy-cm2 (snell-centimeter squared) DESCRIPTION: Informed consent was obtained from the patient prior to the procedure. During this process, the procedure and potential alternatives were explained, along with the intended outcome and benefits. The risks of the procedure, as well as the risks of not doing the procedure, were discussed. The patient was given the opportunity to ask questions regarding the procedure and appeared competent to make medical decisions. A signed consent form which documents this discussion was placed in the medical record. The patient was placed on the procedure table. A final timeout was called. The right chest wall and neck were prepped in a sterile fashion with maximal barrier protection. Initial fluoroscopic imaging demonstrated proper positioning of the temporary hemodialysis catheter. The right upper chest was anesthetized using lidocaine and lidocaine with epinephrine. After measurements were taken the new tunneled hemodialysis catheter was tunneled subcutaneously using blunt dissection from the upper right chest to the venotomy site. A wire was placed through the existing temporary hemodialysis catheter and the old catheter was removed. The tract was dilated and a peel-away sheath was placed The inner dilator and wire were removed, and the new 23 cm tip to cuff tunneled hemodialysis catheter was advanced through the sheath. The sheath was peeled away. The catheter was tested, flushed, and sutured to the skin with its tip in the high right atrium. The catheter ports were packed with heparin per routine protocol. A sterile bandage was placed. The venotomy site was closed with dermabond. IMPRESSION: Successful and uncomplicated conversion of temporary hemodialysis catheter to tunneled 23 cm tip to cuff hemodialysis catheter. Catheter ready to use at this time. Pertinent Lab Results: Chest x-ray 06/28/2018: IMPRESSION: There is cardiomegaly and pulmonary edema consistent with congestive heart failure. The possibility of superimposed pneumonia cannot be definitively excluded on the basis of this examination. Chest x-ray on 06/29/2018: IMPRESSION: Cardiomegaly with pulmonary edema. Interval improvement in bibasilar airspace opacities. Small bilateral pleural effusions. Chest x-ray on 06/29/2018: IMPRESSION: Constellation of findings is most consistent with congestive heart failure exacerbation with interval slight improvement. Doppler study on 06/30/2018: IMPRESSION: 1. Deep venous system of the bilateral lower extremities are patent with the exception of a short segment nonocclusive thrombus within the right cephalic vein in the region of the antecubital fossa. Diameters and measurements are included above. Evaluation of the distal right forearm was limited secondary to IV placement. 2. Unremarkable brachial, radial and ulnar arteries bilaterally. Chest x-ray on 06/30/2018: IMPRESSION: Findings consistent with pulmonary edema and pleural effusions probably not significantly changed compared to prior. Disposition Summary Disposition Principal Diagnosis: Acute hypoxic respiratory failure due to acute on chronic diastolic heart failure. End-stage renal disease on dialysis Anemia of chronic disease Hypertensive urgency Additional Diagnosis: History of hyperlipidemia. History of obstructive sleep apnea. Discharge Disposition: home health services Discharge Instructions General Discharge Information Code Status: Full Code Patient's Diet: Renal dialysis diet Patient's Activity: Self-limited Follow-Up Instructions/Appts: Follow-up with your primary care physician in 1 week Follow-up with your fuel testing technician in 1 week Follow-up with your director of home health services in 1 week Follow-up nephrology in 1 week Medications at Discharge Discharge Medications: Stop taking the following medications: Furosemide (Furosemide) 40 MG TABLET ORAL DAILY as needed for LOWER EXTREMITY SWELLING PRN Qty = 60 Continue taking these medications: Rosuvastatin Calcium (Crestor) 40 MG TABLET 1 Tablet ORAL DAILY Comments: Last Taken: 07/08/18 Time: 10:30 AM LIPITOR GIVEN SUBSTITUTE Aspirin (Children's Aspirin) 81 MG TAB.CHEW 1 Tablet ORAL DAILY Comments: Last Taken: 07/08/18 Time: 10:30 AM Multivitamin (Multiple Vitamins) 1 EACH TABLET 1 Tablet ORAL DAILY Comments: Last Taken: 07/08/18 Time: 10:30 AM Vitamin E (Vitamin E) 200 UNIT CAPSULE 1 Capsule ORAL DAILY Comments: NOT GIVEN IN HOSPITAL Cholecalciferol (Vitamin D3) 1,000 UNIT TABLET 1 Tablet ORAL DAILY Comments: NOT GIVEN IN HOSPITAL Hydralazine HCl (Hydralazine HCl) 100 MG TABLET 1 Tablet ORAL THREE TIMES DAILY Qty = 90 Comments: Last Taken: 07/08/18 Time: 6:00 AM Doxazosin Mesylate (Cardura) 4 MG TABLET 1 Tablet ORAL DAILY Comments: Last Taken: 07/07/18 Time: 5:30 PM Sevelamer Carbonate (Renvela) 800 MG TABLET 1 Tablet ORAL WITH MEALS Qty = 90 Comments: Last Taken: 07/08/18 Time: 12:30 PM Amlodipine Besylate (Amlodipine Besylate) 10 MG TABLET 1 Tablet ORAL DAILY Qty = 30 Comments: Last Taken: 07/07/18 Time: 5:30 PM Culver-3 Fatty Acids/Fish Oil (Fish Oil 1,000 MG Capsule) 340 MG-1,000 MG CAPSULE 1 Capsule ORAL DAILY Comments: Last Taken: 07/08/18 Time: 10:30 AM Tramadol HCl (Tramadol HCl) 50 MG TABLET 1 Tablet ORAL 2 x Daily as needed as needed for PAIN Qty = 30 Comments: Last Taken: 07/08/18 Time: 12:30 PM Isosorbide Mononitrate (Isosorbide Mononitrate ER) 30 MG TAB.ER.24H 90 Milligram ORAL DAILY Qty = 30 Instructions: . Comments: Last Taken: 07/08/18 Time: 10:30 AM Labetalol HCl (Labetalol HCl) 100 MG TABLET 300 Milligram ORAL TWICE DAILY Qty = 90 Instructions: . Comments: Last Taken: 07/08/18 Time: 10:30 AM Start taking the following new medications: Lisinopril (Lisinopril) 40 MG TABLET 1 Tablet ORAL DAILY Qty = 30 No Refills Comments: Last Taken: 07/08/18 Time: 10:30 AM Copies To: Brenden DUNN,Uriel Frye; Taj DUNN,Wilian Hampton; Ethan DUNN,Shlomo Garcias; Jagjit DUNN,Anuj Garcias
[2018-07-07] MEDS ORDERED: LISINOPRIL40 M1 PO (15:26)
--- NOTE | 2018-07-07 15:34 | Patient Discharge Instructions ---
Discharge Instructions General Discharge Information You were seen/treated for: Acute hypoxic respiratory failure due to acute diastolic congestive heart failure. End-stage renal disease on dialysis Hypertensive urgency Watch for these problems: Chest pain, palpitation, shortness of breath, leg swelling, nausea, vomiting and weight gain. Other wound care: Keep incision clean and dry. May shower but no bathing or soaking. Clean, dry dressing change daily Special Instructions: Follow-up with your primary care physician in 1 week Follow-up with your cardiac technologist in 1 week Follow-up with pulverizing and sifting operator in 1 week Follow-up with your career coordinator in 1 week and discuss about sleep study and will decide about CPAP settings. Follow up with dr Paredes of vascular surgery within two weeks for staple removal Diet Recommended Diet: Renal Dialysis Activity Activity Self Limited: Yes Acute Coronary Syndrome Inclusion Criteria At DC or during hospital stay patient has or had the following: ACS DIAGNOSIS No Discharge Core Measures Meds if any: Prescribed or Continued at Discharge Meds if any: NOT Prescribed or Continued at Discharge Congestive Heart Failure Inclusion Criteria At DC or during hospital stay patient has or had the following: CHF DIAGNOSIS Yes Discharge Core Measures Meds if any: Prescribed or Continued at Discharge Meds if any: NOT Prescribed or Continued at Discharge Cerebrovascular accident Inclusion Criteria At DC or during hospital stay patient has or had the following: CVA/TIA Diagnosis No Discharge Core Measures Meds if any: Prescribed or Continued at Discharge Meds if any: NOT Prescribed or Continued at Discharge Venous thromboembolism Inclusion Criteria VTE Diagnosis No VTE Type NONE VTE Confirmed by (Test) NONE Discharge Core Measures - Per Current guidelines, there needs to be overlap - treatment for the first 5 days of Warfarin therapy. - If discharged on Warfarin prior to 5 days of - overlap therapy, the patient will need to be - assessed for post discharge needs including - *Post discharge parental anticoagulation - *Warfarin and/or parental anticoagulation education - *Follow up date to check INR post discharge At least 5 days overlap therapy as Inpatient No Meds if any: Prescribed or Continued at Discharge Note: Overlap Therapy is Warfarin and Anticoagulant Meds if any: NOT Prescribed or Continued at Discharge
--- NOTE | 2018-07-07 16:00 | Operative Report ---
Operative/Inv Procedure Report Surgery Date: 07/07/18 Name of Procedure: Left radial-cephalic arteriovenous fistula creation. Pre-Operative Diagnosis: End-stage renal disease. Post-Operative Diagnosis: End-stage renal disease. Estimated Blood Loss: less than 50ml Surgeon/Butcher Scullion: MD Tonja Zhang PA Anesthesia: local monitored anesthesi Drains: None. Specimens: None. Tourniquet: None. Complications: No immediate. Condition: Stable. Operative Indication: The patient is a 77-year-old right-handed female with end-stage renal disease, who is undergoing creation of permanent hemodialysis access. A preoperative vein mapping demonstrated a suitable left cephalic vein. Operative/Procedure Note Note: The patient was brought to the operating room and placed supine on the table. She was given 1 g of Ancef and sedated. With ultrasound I visualized the left cephalic vein from the wrist to shoulder and confirmed it to be compressible and of good size. The left arm was then circumferentially prepped and draped in the usual fashion from the knuckles to the axilla. A timeout was performed, verifying the patient's name, medical record number, procedure to be performed, and side of surgery. A local anesthetic mixture containing 1% lidocaine mixed 50/50 with 0.25% Marcaine was infiltrated into the subcutaneous tissues overlying the cephalic vein and the radial artery in the wrist. A longitudinal incision was created sharply over the cephalic vein in the distal forearm. The vein was readily identified and mobilized over approximately 8-10 cm. Venous side branches were taken between silk ties. The vein was ultimately ligated with a 4-0 silk tie and divided. A 5 German pediatric feeding tube was advanced through the vein and the vein dilated nicely within the wound bed. A second longitudinal incision was created over the radial artery at the wrist. The incision was deepened through the subcutaneous tissues with cautery, and the underlying radial artery was identified: it was soft, contained a good pulse, and and was on the larger side, measuring approximately 4 mm in diameter. A gently curved subcutaneous tunnel was fashioned between the two incisions. The vein was marked with an indelible marking pen and carefully passed through the tunnel. Once through the tunnel, it was again flushed with heparinized saline and did so easily, thereby excluding the presence of any kinks. The patient was given 4000 units of heparin intravenously. After allowing the heparin to circulate for 5 minutes, the radial artery was controlled proximally and distally by pulling up on doubly-wrapped Silastic Vesseloops. A longitudinal arteriotomy was created sharply and extended with Murray scissors to a length of approximately 6 mm. The vein was spatulated and an end-to-side anastomosis was created using running 7-0 Prolene sutures. Prior to completion of the suture line bleeding and flushing maneuvers were performed. The suture line was completed and flow was established by releasing the loop on the proximal radial artery. After several heartbeats, the distal radial artery loop was released. The patient had a good thrill in the outflow cephalic vein, the radial artery pulse was palpable distal to the anastomosis, and the anastomosis was hemostatic. Satisfied with result, the wounds were irrigated with warm water and hemostasis was secured in the wound beds. The wounds were closed in layers using interrupted 3-0 Vicryl sutures in the subcutaneous tissues and surgical stephanie in the skin. The wounds were dressed with Telfa and Tegaderm. The sponge, needle and instrument counts were correct at the end of the case. The patient tolerated the procedure without difficulty. She was taken to the recovery area in satisfactory condition.
--- NOTE | 2018-07-07 16:41 | PN- Student ---
Subjective Subjective: Pt denies any pain at this time. Says she is feeling well but is tired. Denies any shortness of breath, difficulty breathing, CP, headache, dizziness, nausea or vomiting. She denies any numbness or tingling in her arm or hand. Objective Objective: Physical Exam: Vitals:See EMR General:Elderly woman, lying in bed, NAD. Cardiac:Regular rate and rhythm. S1 and S2 hear with no murmurs, rubs or gallops appreciated. Pulmonic: Breath sounds heard in anterior and lateral lung chahal. Abdominal:Normoactive bowel sounds. Soft, non-tender, non-distended. Extremities:Left upper distal extremity elevated on a pillow with ice resting on top. Dressing is intact with some blood noted on the outside but not seeping through. Gross motor function in tact in bilateral upper extremities. Food Scientist strength 5/5 bilaterally. Radial pulses palpable bilaterally. Bilateral calves are soft and non-tender. ALPs in place. Assessment/Plan Assessment: Pt is a 77 year old female POD#0 s/p AV fistula formation in the left distal arm for dialysis access due to stage 5 Chronic Kidney Disease, with a past medical history of CKD, diabetes mellitus, HTN, obesity, diastolic heart failure and anemia of chronic disease. Plan: Plan: Pt to keep left upper extremity elevated with alternating ice on and off. Monitor post-operative pain and treat as needed. Follow up with am labs. Continue with patient's home medications. May advance diet.
[2018-07-07 17:13] VITALS: BP 162/70
[2018-07-07 20:39] VITALS: BP 120/58
[2018-07-08 06:49] VITALS: BP 130/60
--- NOTE | 2018-07-08 07:05 | History & Physical ---
General Information and HPI Source of Information: patient, old records Exam Limitations: no limitations Allergies/Medications Allergies: Coded Allergies: oxycodone (From PERCOCET) (Intermediate, HALLUCINATIONS 06/30/18) Home Med list Amlodipine Besylate 10 MG TABLET 1 TAB PO DAILY HEART (Reported) Aspirin (Children's Aspirin) 81 MG TAB.CHEW 1 TAB PO DAILY HEART HEALTH ( Reported) Cholecalciferol (Vitamin D3) 1,000 UNIT TABLET 1 TAB PO DAILY VITAMIN SUPPORT (Reported) Doxazosin Mesylate (Cardura) 4 MG TABLET 1 TAB PO DAILY HEART (Reported) Furosemide 40 MG TABLET 1 TAB PO DAILY PRN LOWER EXTREMITY SWELLING PRN .. Hydralazine HCl 100 MG TABLET 1 TAB PO TID HIGH BLOOD PRESSURE Isosorbide Mononitrate (Isosorbide Mononitrate ER) 30 MG TAB.ER.24H 90 MG PO DAILY HTN . Labetalol HCl 100 MG TABLET 300 MG PO BID HYPERTENSION . Lisinopril 40 MG TABLET 1 TAB PO DAILY HTN Multivitamin (Multiple Vitamins) 1 EACH TABLET 1 TAB PO DAILY VITAMIN SUPPORT (Reported) [place]-3 Fatty Acids/Fish Oil (Fish Oil 1,000 MG Capsule) 340 MG-1,000 MG CAPSULE 1 CAP PO DAILY SUPPLEMENT (Reported) Rosuvastatin Calcium (Crestor) 40 MG TABLET 1 TAB PO DAILY CHOLESTEROL ( Reported) Sevelamer Carbonate (Renvela) 800 MG TABLET 1 TAB PO WM Kidney failure Tramadol HCl 50 MG TABLET 1 TAB PO BIDP PRN PAIN (Reported) Vitamin E 200 UNIT CAPSULE 1 CAP PO DAILY SUPPLEMENT (Reported) Compliance With Home Meds: FAIR Past History Travel History Traveled to [place] past 21 day No Medical History Blood Transfusion Hx: No Neurological: NONE EENT: NONE Cardiovascular: diastolic CHF, hypertension, hyperlipidemia, chronic venous insuffcny Respiratory: NONE Gastrointestinal: C.DIFF Hepatic: NONE Renal: chronic kidney disease Musculoskeletal: fracture, LUMBAR FX Psychiatric: NONE Endocrine: NONE Blood Disorders: anemia Cancer(s): NONE MANAGER CARDIOLOGY/Reproductive: NONE History of MRSA: No History of VRE: No History of CDIFF: No Isolation History: Contact Surgical History Surgical History: appendectomy (age 19), TONSILS podiatric surgery Past Family/Social History Family History Relations & Conditions if any MOTHER (CVA/obese). , Age 44; Cause: HTN (hypertension). FATHER, , Age 68; Cause: ASHD (arteriosclerotic heart disease). Psychosocial History Where do you live? Home Who Do You Live With? self Services at Home: None Primary Language: Tanzanian Smoking Status: Never Smoked ETOH Use: denies use Illicit Drug Use: denies illicit drug use Living Will? no Power of Screen Machine Operator/HCP? no Functional Ability ADLs Independent: dressing, eating, toileting, bathing. 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 Exam & Diagnostic Data Diagnostic Data EKG Results Sinus rhythm LVH CXR Results IMPRESSION: There is cardiomegaly and pulmonary edema consistent with congestive heart failure. The possibility of superimposed pneumonia cannot be definitively excluded on the basis of this examination. Other Results Echocardiogram May 24, 2018 CONCLUSIONS Normal left ventricular systolic function with moderate concentric hypertrophy. Moderate left atrial enlargement. At least type 2 Diastolic left ventricular dysfunction with suggestion of elevated left ventricular end diastolic pressure by doppler.Moderate Pulmonary hypertension.Mild Mitral stenosis. Uriel Odell M.D. Core Measures/Misc (07/26) Cerebrovascular Accident CVA/TIA Diagnosis: No VTE (View Protocol) VTE Risk Factors No risk factors Sepsis (View protocol) Sepsis Present: No If YES complete Sepsis Event Note If YES complete Sepsis Event Note
--- NOTE | 2018-07-08 07:44 | PN- Housestaff ---
Uche Smith 07/08/18 0743: Subjective Follow-up For: Acute hypoxic respiratory failure due to acute diastolic congestive heart failure. End-stage renal disease on dialysis Hypertensive urgency Complaints: patient complains of 5/10 chest pain, nonradiating, goes "through to back", reproducible by palpation Tele-Events Since Last Visit: Off telemetry Subjective: Patient was seen and examined at the bedside. No acute events overnight. Patient maintaining saturations. Did experience one episode of lightheadedness following dialysis yesterday, attributes to decreased food intake during the day. Following rounds, the patient had the nurse page the house staff for a new onset 5/10 chest pain. At that time, her repeat EKG was unchanged from prior, discussed with resident . Denies fever/chills/night sweats/shortness of breath /abdominal pain/urinary symptoms. Review of Systems Constitutional: Reports: see HPI. Objective Last 24 Hrs of Vital Signs/I&O Vital Signs Date Time Temp Pulse Resp B/P B/P Pulse O2 O2 Flow FiO2 Mean Ox Delivery Rate 07/08 1040 61 130/60 07/08 1040 61 130/60 07/08 1039 61 130/60 07/08 0649 97.9 61 18 130/60 99 BIPAP 07/08 0602 70 130/60 07/08 0000 BIPAP 07/07 2246 50 92 07/07 2241 50 120/58 07/07 2041 50 120/58 07/07 2039 50 120/58 07/07 1730 52 162/70 07/07 1713 97.6 52 18 162/70 95 Nasal 2.0L Cannula Intake & Output 07/08 1600 07/08 0800 07/08 0000 Intake Total 300 Output Total 50 Balance -50 300 Intake, Oral 300 Output, Urine 50 Physical Exam General Appearance: Alert, Oriented X3, Cooperative, Mild Distress Skin: No Rashes, No Breakdown, No Significant Lesion Skin Temp/Moisture Exam: Warm/Dry HEENT: Atraumatic, PERRLA, EOMI, Mucous Membr. moist/pink Neck: Supple, No JVD, No thryomegaly Cardiovascular: Regular Rate, Normal S1, Normal S2, No Murmurs, Gallops, Rubs Lungs: Clear to Auscultation, Normal Air Movement Abdomen: Normal Bowel Sounds, Soft, No Tenderness Neurological: Normal Speech, Strength at 5/5 X4 Ext, Normal Tone, Sensation Intact Extremities: No Clubbing, No Cyanosis, No Edema Current Medications: Current Medications Sig/Duong Start time Last Medication Dose Route Stop Time Status Admin Acetaminophen 0 .STK-MED ONE 07/07 1601 DC IV Acetaminophen 650 MG Q6P PRN 06/28 1245 AC 07/07 PO 0534 Acetaminophen 1,000 MG Q6P PRN 06/28 1245 AC IV Amlodipine Besylate 10 MG 1700 07/01 1700 AC 07/07 PO 1730 Aspirin 81 MG DAILY 06/29 0900 AC 07/08 PO 1039 Atorvastatin Calcium 40 MG DAILY 06/29 0900 AC 07/08 PO 1040 Doxazosin Mesylate 4 MG 1700 07/01 1700 AC 07/07 PO 1730 Epoetin Ld 6,000 UNIT MoWeFr PRN 07/02 1815 AC IV Fentanyl Citrate 0 .STK-MED ONE 07/07 1314 DC .ROUTE Fish Oil 1,050 MG DAILY 06/28 1228 AC 07/08 PO 1040 Heparin Sodium 5,000 UNIT Q8 06/28 1400 AC 07/08 (Porcine) SC 0610 Hydralazine HCl 100 MG Q8 06/30 1400 AC 07/08 PO 0602 Hydromorphone HCl 0 .STK-MED ONE 07/07 1609 DC .ROUTE Isosorbide 90 MG DAILY 06/28 1226 AC 07/08 Mononitrate PO 1039 Ketamine HCl 0 .STK-MED ONE 07/07 1319 DC .ROUTE Labetalol HCl 300 MG BID 06/28 2100 AC 07/08 PO 1040 Lisinopril 40 MG DAILY 07/06 0900 AC 07/08 PO 1040 Midazolam HCl 0 .STK-MED ONE 07/07 1319 DC .ROUTE Multivitamins 1 TAB DAILY 07/02 1600 AC 07/08 PO 1040 Multivitamins 1 TAB DAILY 06/29 09 AC 07/08 Therapeutic PO 1040 Omeprazole 20 MG DAILY AC 07/06 0700 AC 07/08 PO 0601 Potassium Chloride 20 MEQ ONCE ONE 07/07 1500 DC 07/07 PO 07/07 1501 1730 Sevelamer Carbonate 800 MG WM 06/28 1700 AC 07/08 PO 1208 Tramadol HCl 50 MG Q4-6 PRN PRN 07/07 1600 AC 07/08 PO 1208 Assessment/Plan Assessment: 77 YO F PMH of hypertension, hyperlipidemia, type 2 diabetes, chronic significant anemia, worsening chronic kidney diseasestage, chronic venous insufficiency, significant diastolic dysfunction with recurrent diastolic heart failure, recurrent mechanical fall at home, probable neuropathy, previous colon polyps, morbid obesity with worsening performance status, significant lumbosacral degeneration with chronic L1 fracture, chronic low back pain, chronic anemia, chronic lower extremity edema, morbid obesity with obstructive sleep apnea history not on CPAP regularly now. Patient was admitted initially to ICU and she remained on BiPAP. Patient never been intubated. After stabilization patient was downgraded to telemetry floor. Problem list/plan: Acute hypoxic respiratory failure due to acute on chronic diastolic congestive heart failure:(improving) -Continue supplemental oxygen to keep her saturation above 92%. -Patient is on 2 L and maintaining saturation 96%. Patient used CPAP last night for brief time. -TRC nebulization as needed -Her blood cultures are negative so far. -Continue lisinopril 40 mg daily End-stage renal disease on maintenance dialysis: -Stage V chronic kidney disease. -Patient is getting dialysis on Thursday. -Patient has scheduled dialysis as outpatient on Thursday by nephrology; planned discharge today. -Continue Epogen and sevelamer. -Patient went for tunneled catheter to IR yesterday. -Patient will get AV fistula for permanent dialysis in future on left arm. Anemia of chronic disease: -Due to chronic kidney injury. -S/P 2 blood transfusion. Her H&H is stable. -Continue Epogen Leukocytosis:(resolved) -Possibly reactionary as patient remained afibrile. Her wbc count is within normal limit. -Patient was kept off antibiotics. Hypertensive urgency:(improving) -Continue lisinopril, lisinopril dose was increased. -Continue amlodipine, doxazosin, imdur, labetalol and hydralazine. History of hyperlipidemia: -Continue atorvastatin History of obstructive sleep apnea: -Continue CPAP at nighttime -Pt to go for sleep study in a few weeks and will decide on CPAP settings after that and she would need a new machine subsequently. DVT prophylaxis: Subcu lovenox and ALPS Renal dialysis diet Patient is full code Problem List: 1. Acute hypoxemic respiratory failure 2. Hypertensive urgency 3. Acute on chronic diastolic CHF (congestive heart failure) Pain Ratin Pain Location: none Pain Goal: Remain pain free Pain Plan: pain pathway Tomorrow's Labs & Rationales: none Discharge Plan Discharge Disposition: home Stable for Discharge? Yes Anticipated Discharge (Day): today Cesar Mueller MDfiliaayush 07/08/18 1424: Attending MD Review Statement Attending Statement Attending MD Statement: examined this patient, discuss w/resident/PA/SURGICAL DRESSING MAKER, agreed w/resident/PA/SURGICAL DRESSING MAKER, reviewed EMR data (avail), discussed with nursing, discussed with case mgmt, amended to note Attending Assessment/Plan: Patient seen and examined. Resting comfortably not in any acute distress. No issues overnight. No new complaints this morning. Blood pressure is controlled on the current regimen. She is medically stable to be discharged today. She is scheduled to undergo hemodialysis tomorrow. She will follow-up with her primary care providers in the outpatient setting.
--- NOTE | 2018-07-08 09:14 | PN- Nephrology ---
Assessment/Plan Nephrology Assessment: Good result with AVF. Maturation will take several weeks so will stay with tunneled catheter for now. Suggestion: Has outpatient slot tomorrow at 3 PM. If still here in hospital tomorrow will dialyze here early so can be discharged later in day. Subjective Subjective: No complaints today. Left forearm AVF created yesterday. Objective Vital Signs and I&Os Vital Signs Date Time Temp Pulse Resp B/P B/P Pulse O2 O2 Flow FiO2 Mean Ox Delivery Rate 07/08 0649 97.9 61 18 130/60 99 BIPAP 07/08 0602 70 130/60 07/08 0000 BIPAP 07/07 2246 50 92 07/07 2241 50 120/58 07/07 2041 50 120/58 07/07 2039 50 120/58 07/07 1730 52 162/70 07/07 1713 97.6 52 18 162/70 95 Nasal 2.0L Cannula 07/07 1151 56 178/80 07/07 1151 56 178/80 07/07 1151 56 178/80 07/07 1147 178/80 Intake & Output 07/08 1600 07/08 0400 07/07 1600 07/07 0400 07/06 1600 07/06 0400 Intake Total 300 120 450 350 240 Output Total 50 Balance -50 300 120 450 350 240 Intake, IV 50 Intake, Oral 300 120 450 300 240 Number 0 1 Bowel Movements Output, Urine 50 Patient 181 lb 189 lb Weight Weight Bed scale Bed scale Measurement Method Physical Exam: NAD VS as above Lungs: aclear CV: no rub Abd: non-tender Exts: no edema, good bruit left arm avf, no neurologic issues Neuro: A&O Current Medications: Current Medications Sig/Duong Start time Last Medication Dose Route Stop Time Status Admin Acetaminophen 0 .STK-MED ONE 07/07 1601 DC IV Acetaminophen 650 MG ONCE ONE 07/07 1200 DC 07/07 PO 07/07 1201 1156 Acetaminophen 650 MG Q6P PRN 06/28 1245 AC 07/07 PO 0534 Acetaminophen 1,000 MG Q6P PRN 06/28 1245 AC IV Amlodipine Besylate 10 MG 1700 07/01 1700 AC 07/07 PO 1730 Aspirin 81 MG DAILY 06/29 09 AC 07/07 PO 1151 Atorvastatin Calcium 40 MG DAILY 06/29 09 AC 07/07 PO 1151 Doxazosin Mesylate 4 MG 1700 07/01 1700 AC 07/07 PO 1730 Epoetin Ld 6,000 UNIT MoWeFr PRN 07/02 1815 AC IV Fentanyl Citrate 0 .STK-MED ONE 07/07 1314 DC .ROUTE Fish Oil 1,050 MG DAILY 06/28 1228 AC 07/07 PO 1151 Heparin Sodium 5,000 UNIT Q8 06/28 1400 AC 07/08 (Porcine) SC 0610 Hydralazine HCl 100 MG Q8 06/30 1400 AC 07/08 PO 0602 Hydromorphone HCl 0 .STK-MED ONE 07/07 1609 DC .ROUTE Isosorbide 90 MG DAILY 06/28 1226 AC 07/07 Mononitrate PO 1151 Ketamine HCl 0 .STK-MED ONE 07/07 1319 DC .ROUTE Labetalol HCl 300 MG BID 06/28 2100 AC 07/07 PO 2041 Lisinopril 40 MG DAILY 07/06 0900 AC 07/07 PO 1151 Midazolam HCl 0 .STK-MED ONE 07/07 1319 DC .ROUTE Multivitamins 1 TAB DAILY 07/02 1600 AC 07/07 PO 1151 Multivitamins 1 TAB DAILY 06/29 0900 AC 07/07 Therapeutic PO 1151 Omeprazole 20 MG DAILY AC 07/06 0700 AC 07/08 PO 0601 Potassium Chloride 20 MEQ ONCE ONE 07/07 1500 DC 07/07 PO 07/07 1501 1730 Sevelamer Carbonate 800 MG WM 06/28 1700 AC 07/07 PO 1820 Tramadol HCl 50 MG Q4-6 PRN PRN 07/07 1600 AC PO Results Pertinent Lab Results: Laboratory Tests 07/07 07/07 07/07 1247 1225 0749 Chemistry Sodium (137 - 145 mmol/L) 139 Potassium (3.5 - 5.1 mmol/L) 3.7 Chloride (98 - 107 mmol/L) 103 Carbon Dioxide (22 - 30 mmol/L) 28 Anion Gap (5 - 16) 7 BUN (7 - 17 mg/dL) Cancelled < 2 L 34 H Creatinine (0.5 - 1.0 mg/dL) 3.8 H Estimated GFR (>60 ml/min) 12 L BUN/Creatinine Ratio (7 - 25 %) 8.9 Calcium (8.4 - 10.2 mg/dL) 9.0 Hematology CBC w Diff NO MAN DIFF REQ WBC (4.8 - 10.8 /CUMM) 7.4 RBC (4.20 - 5.40 /CUMM) 2.71 L Hgb (12.0 - 16.0 G/DL) 8.2 L Hct (37 - 47 %) 25.0 L MCV (81.0 - 99.0 FL) 92.3 MCH (27.0 - 31.0 PG) 30.2 MCHC (33.0 - 37.0 G/DL) 32.7 L RDW (11.5 - 14.5 %) 15.9 H Plt Count (130 - 400 /CUMM) 257 MPV (7.4 - 10.4 FL) 9.1 Gran % (42.2 - 75.2 %) 70.0 Lymphocytes % (20.5 - 51.1 %) 16.5 L Monocytes % (1.7 - 9.3 %) 8.8 Eosinophils % (0 - 5 %) 4.1 Basophils % (0.0 - 2.0 %) 0.6 Absolute Granulocytes (1.4 - 6.5 /CUMM) 5.2 Absolute Lymphocytes (1.2 - 3.4 /CUMM) 1.2 Absolute Monocytes (0.10 - 0.60 /CUMM) 0.7 H Absolute Eosinophils (0.0 - 0.7 /CUMM) 0.3 Absolute Basophils (0.0 - 0.2 /CUMM) 0 07/07 07/05 07/05 0635 1850 1537 Chemistry Sodium (137 - 145 mmol/L) 138 Potassium (3.5 - 5.1 mmol/L) 4.0 Chloride (98 - 107 mmol/L) 103 Carbon Dioxide (22 - 30 mmol/L) 25 Anion Gap (5 - 16) 10 BUN (7 - 17 mg/dL) 33 H 15 46 H Creatinine (0.5 - 1.0 mg/dL) 3.7 H Estimated GFR (>60 ml/min) 12 L BUN/Creatinine Ratio (7 - 25 %) 8.9 Hematology CBC w Diff NO MAN DIFF REQ WBC (4.8 - 10.8 /CUMM) 7.4 RBC (4.20 - 5.40 /CUMM) 2.71 L Hgb (12.0 - 16.0 G/DL) 8.1 L Hct (37 - 47 %) 25.0 L MCV (81.0 - 99.0 FL) 92.6 MCH (27.0 - 31.0 PG) 30.0 MCHC (33.0 - 37.0 G/DL) 32.4 L RDW (11.5 - 14.5 %) 16.2 H Plt Count (130 - 400 /CUMM) 253 MPV (7.4 - 10.4 FL) 9.3 Gran % (42.2 - 75.2 %) 68.8 Lymphocytes % (20.5 - 51.1 %) 16.1 L Monocytes % (1.7 - 9.3 %) 9.6 H Eosinophils % (0 - 5 %) 4.9 Basophils % (0.0 - 2.0 %) 0.6 Absolute Granulocytes (1.4 - 6.5 /CUMM) 5.1 Absolute Lymphocytes (1.2 - 3.4 /CUMM) 1.2 Absolute Monocytes (0.10 - 0.60 /CUMM) 0.7 H Absolute Eosinophils (0.0 - 0.7 /CUMM) 0.4 Absolute Basophils (0.0 - 0.2 /CUMM) 0
--- NOTE | 2018-07-08 11:58 | PN- Vascular Surgery ---
Subjective Subjective: Awake, alert OOB in chair No complaints regarding her LUE Objective Vital Signs and I&Os Vital Signs Date Time Temp Pulse Resp B/P B/P Pulse O2 O2 Flow FiO2 Mean Ox Delivery Rate 07/08 1040 61 130/60 07/08 1040 61 130/60 07/08 1039 61 130/60 07/08 0649 97.9 61 18 130/60 99 BIPAP 07/08 0602 70 130/60 07/08 0000 BIPAP 07/07 2246 50 92 07/07 2241 50 120/58 07/07 2041 50 120/58 07/07 2039 50 120/58 07/07 1730 52 162/70 07/07 1713 97.6 52 18 162/ 95 Nasal 2.0L Cannula Intake & Output 07/08 0000 07/07 1600 07/07 0000 Intake Total 300 120 450 Output Total 50 Balance -50 300 120 450 Intake, Oral 300 120 450 Output, Urine 50 Patient 181 lb Weight Weight Bed scale Measurement Method Physical Exam: afebrile, vss LUE: warm, normosensate, FROM, good cap refill 2+radial pulse- unable to palpate a thrill - dopplerable pulse at radial and at the cephalic vein - doppler signal followed up to the mid forearm. 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
[2018-07-08 14:34] VITALS: BP 108/48
== END 2018-07-08 14:20 | disposition home health service (06) | DRG 264 ==
LOC: ERH 08:28 → CRI 10:38 → 1NO 10:38 → ERHI 10:38 → EDBEDREQ 12:28 → ERHI 12:29 → ENRESERV 12:36 → CRI 13:03 → ENTRNSPT 07-03 12:36 → 1NO 07-03 13:06 → EDTRNSPTSTS 07-03 13:08 → EDTRNSPT 07-03 13:08 → CMPTRNSPT 07-03 13:17 → 1NO 07-04 09:38 → ENTRNSPT 07-07 16:44 → EDTRNSPT 07-07 17:02 → EDTRNSPTSTS 07-07 17:02 → CMPTRNSPT 07-07 17:10 → ENTRNSPT 07-08 13:51 → EDTRNSPTSTS 07-08 13:59 → EDTRNSPT 07-08 13:59 → 1NO 07-08 14:20 → CMPTRNSPT 07-08 14:43
PROVIDERS: Emergency Medicine; Internal Medicine; Internal Medicine Nephrology; Student in an Organized Health Care Education/Training Program
PROC: 30233N1 Transfusion of Nonautologous Red Blood Cells into Peripheral Vein, Percutaneous Approach (ICD-10-PCS; 2018-06-28)
PROC: 5A1D70Z Performance of Urinary Filtration, Intermittent, Less than 6 Hours Per Day (ICD-10-PCS; 2018-06-28)
PROC: 5A09457 Assistance with Respiratory Ventilation, 24-96 Consecutive Hours, Continuous Positive Airway Pressure (ICD-10-PCS; principal; 2018-06-29)
PROC: 031C0ZF Bypass Left Radial Artery to Lower Arm Vein, Open Approach (ICD-10-PCS; 2018-07-07)
DX: I13.2 Hypertensive heart and chronic kidney disease with heart failure and with stage 5 chronic kidney disease, or end stage renal disease (principal); I50.33 Acute on chronic diastolic (congestive) heart failure; J96.21 Acute and chronic respiratory failure with hypoxia; N18.6 End stage renal disease; N18.5 Chronic kidney disease, stage 5; Z68.41 Body mass index [BMI] 40.0-44.9, adult; Z99.2 Dependence on renal dialysis; I87.2 Venous insufficiency (chronic) (peripheral); Z99.81 Dependence on supplemental oxygen; E66.01 Morbid (severe) obesity due to excess calories; D47.2 Monoclonal gammopathy; D63.1 Anemia in chronic kidney disease; E78.5 Hyperlipidemia, unspecified; G47.33 Obstructive sleep apnea (adult) (pediatric); E87.6 Hypokalemia; E11.22 Type 2 diabetes mellitus with diabetic chronic kidney disease; I16.0 Hypertensive urgency
CPT/HCPCS: 04007; 1NP; CCU; 36415; 36592; 71045; 77001; 81001; 82436; 86920; 87040; 87070; 87086; 93005; 93010; 97110-GO; 97116-GO; 97161-GP; C1752; C1769; G0365; J0131; J0360; J0690; J0885; J1644; J1940; J2001; J2440; J2930; J3250; J3490; P9016

== ENCOUNTER 2018-08-02 19:27 | Emergency (ER) | payer OTHER ==
[~2018-08-02] VITALS: Ht 152.4 cm; Wt 68.0 kg
[~2018-08-02 19:27] MED LIST changes: +LISINOPRIL40 M1 PO
[2018-08-02 19:34] VITALS: BP 190/94
--- NOTE | 2018-08-02 21:15 | RADIOLOGY REPORT ---
EXAMINATION: XR HAND, RIGHT CLINICAL INFORMATION: Right hand pain swelling and redness COMPARISON: None TECHNIQUE: PA, lateral, and oblique views of the right hand. FINDINGS: Extensive degenerative changes are seen with prominent osteophyte formation and subchondral sclerosis more so in the PIP and PIP joints as well as the first carpometacarpal joint with mild degenerative changes seen elsewhere. Associated soft tissue swelling. I do not appreciate any acute superimposed fracture or dislocation. No radiopaque foreign body. IMPRESSION: Extensive degenerative changes seen in a pattern and distribution more suggestive of osteoarthritis. No definitive acute superimposed bony abnormality.
--- NOTE | 2018-08-02 22:19 | ED HAND/WRIST INJURY COMPLAINT ---
History of Present Illness General Chief Complaint: Upper Extremity Problem Stated Complaint: R HAND SWOLLEN, NO KNOWN INJURY Source: patient Exam Limitations: no limitations Vital Signs & Intake/Output Vital Signs & Intake/Output Vital Signs Date Time Temp Pulse Resp B/P B/P Pulse O2 O2 Flow FiO2 Mean Ox Delivery Rate 08/024 Room Air 08/02 1934 98.0 105 20 190/94 97 Room Air Allergies Coded Allergies: oxycodone (From PERCOCET) (Intermediate, HALLUCINATIONS 06/30/18) Reconcile Medications Amlodipine Besylate 10 MG TABLET 1 TAB PO DAILY HEART (Reported) Aspirin (Children's Aspirin) 81 MG TAB.CHEW 1 TAB PO DAILY HEART HEALTH ( Reported) Cholecalciferol (Vitamin D3) 1,000 UNIT TABLET 1 TAB PO DAILY VITAMIN SUPPORT (Reported) Doxazosin Mesylate (Cardura) 4 MG TABLET 1 TAB PO DAILY HEART (Reported) Hydralazine HCl 100 MG TABLET 1 TAB PO TID HIGH BLOOD PRESSURE Isosorbide Mononitrate (Isosorbide Mononitrate ER) 30 MG TAB.ER.24H 90 MG PO DAILY HTN . Labetalol HCl 100 MG TABLET 300 MG PO BID HYPERTENSION . Lisinopril 40 MG TABLET 1 TAB PO DAILY HTN Multivitamin (Multiple Vitamins) 1 EACH TABLET 1 TAB PO DAILY VITAMIN SUPPORT (Reported) [place]-3 Fatty Acids/Fish Oil (Fish Oil 1,000 MG Capsule) 340 MG-1,000 MG CAPSULE 1 CAP PO DAILY SUPPLEMENT (Reported) Rosuvastatin Calcium (Crestor) 40 MG TABLET 1 TAB PO DAILY CHOLESTEROL ( Reported) Sevelamer Carbonate (Renvela) 800 MG TABLET 1 TAB PO WM Kidney failure Tramadol HCl 50 MG TABLET 1 TAB PO BIDP PRN PAIN (Reported) Vitamin E 200 UNIT CAPSULE 1 CAP PO DAILY SUPPLEMENT (Reported) Triage Note: PT TO TRIAGE C/O R HAND SWELLING/PAIN/REDNESS TO KNUCKLES AND WARM TO TOUCH ALL DAY TODAY. DENIES INJURY/TRAUMA. PT IS A HEMODYALISIS PATIENT, M,W,F. HAS PORT TO R CHEST WALL AND FISTULA TO L ARM, L ARM RESTRICTED. RESTRICTION BAND APPLIED. Triage Nurses Notes Reviewed? yes HPI: 77-year-old white female with history of chronic kidney disease on dialysis presents with atraumatic right hand pain and swelling in the MCP joints primarily. Patient has been undergoing Thursday, Thursday, Thursday dialysis and did have dialysis today to her dry weight. She is awaiting maturation of the left forearm fistula for ongoing hemodialysis. Patient has been taking Tylenol for her pain without relief. She denies any fever chills or lymphangitis. She denies any chest pain or shortness of breath. Past History Travel History Traveled to [place] past 21 day No Medical History Any Pertinent Medical History? 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 , Age 44; Cause: HTN (hypertension). FATHER, , Age 68; Cause: ASHD (arteriosclerotic heart disease). Hx Contributory? No Review of Systems Review of Systems Constitutional: Reports: see HPI. Denies: no symptoms, chills, diaphoresis, fever, malaise, weakness, unexplained weight loss. All Other Systems: Reviewed and Negative Physical Exam Physical Exam General Appearance: well developed/nourished, alert, awake, mild distress Head: atraumatic, normal appearance Eyes: Bilateral: normal appearance, PERRL, EOMI. Neck: normal inspection, supple, full range of motion Cardiovascular/Respiratory: regular rate/rhythm Hand Left: normal inspection, normal range of motion Hand Right: TENDER ERYTHEMA AT THE MCP JOINTS. NORMAL NV EXAM. NORMAL RADIAL AND ULNA PULSES. Progress Differential Diagnosis: cellulitis, gout, septic arthritis, tenosynovitis Plan of Care: X-ray and pain management Comments: Patient with end-stage kidney disease on dialysis who presents with polyarthritis of her MCP joints of her dominant right hand. Given that she is on dialysis, we will give her a [place] 2 inhibitor Celebrex and asked her to check with her electronic equipment set up operator on Thursday for confirmation and second opinion regarding her pain control with Celebrex. Departure Departure Time of Disposition: 2216 Disposition: HOME OR SELF CARE Condition: Stable Clinical Impression Primary Impression: Osteoarthritis of hand, right Qualifiers: Osteoarthritis type: other secondary Qualified Code: M19.241 - Secondary osteoarthritis, right hand Secondary Impressions: CKD (chronic kidney disease) requiring chronic dialysis Referrals: Anuj Danielson MD (PCP/Family) Additional Instructions: Please check with your electronic equipment set up operator on Thursday regarding the use of Celebrex. Follow-up with your primary care doctor for reevaluation of your pain. Departure Forms: Customer Survey General Discharge Information
[2018-08-02] MEDS ORDERED: CELEBREX100 M1 PO (22:21)
[2018-08-02] MEDS ORDERED: PREDNISONE5 M1 PO (23:15)
== END 2018-08-02 23:44 ==
LOC: ERH 19:27
DX: M19.041 Primary osteoarthritis, right hand (principal); N18.9 Chronic kidney disease, unspecified; Z99.2 Dependence on renal dialysis; I10 Essential (primary) hypertension; I50.9 Heart failure, unspecified; E78.5 Hyperlipidemia, unspecified; I87.2 Venous insufficiency (chronic) (peripheral)
CPT/HCPCS: 73130-RT; 96372; J1030; J2920